=== PATIENT | female | born 1970 | race Caucasian/White ===

== ENCOUNTER 2023-04-22 08:56 | Outpatient (OUT) | payer BC, SELFPAY ==
--- NOTE | 2023-04-22 09:12 | XR_ITS ---
[facility] [place] [id number] Patient Name: DEANGELO DAVIDSON MRN: [id number] date: 1970 Sex: F Assigned Patient Location: [facility] Current Patient Location: [facility] Accession/Order Number: [id number] Exam Date: 04/22/2023 09:05 Report Date: 04/22/2023 09:25 At the request of: DAVID ERWIN Procedure: XR hip RT min 2V XR hip RT min 2V, 04/22/2023 9:05 AM EDT, [place]001 INDICATION: Right Hip Pain M25.551 COMPARISON: None. TECHNIQUE: 2 views of the hip obtained. FINDINGS: The osseous structures appear intact. There is normal alignment. The articular surfaces and joint spaces are preserved. There are no obvoius blastic or lytic lesions. There is no evidence of significant soft tissue swelling. XR/XR hip RT min 2V IMPRESSION: No acute osseous injury with normal alignment. Electronically authenticated by: RADHA BETTENCOURT Date: 04/22/2023 09:25
== END 2023-04-22 08:57 | disposition home or self-care (01) ==
LOC: RAD 08:58
PROVIDERS: PCP Nurse Practitioner; Visit Provider Nurse Practitioner
DX: M25.551 Pain in right hip (principal)
CPT/HCPCS: 73502

== ENCOUNTER 2023-07-18 07:18 | Emergency (ER) | payer BC, SELFPAY ==
[2023-07-18] VITALS (10 sets, daily range): BP systolic 119–154; BP diastolic 83–89; PULSE 73–74; RESP 16; TEMP 36.4; O2SAT 98–100; BMI 31.2
--- NOTE | 2023-07-18 07:43 | ED_ITS ---
HPI - Abdominal Pain General Chief Complaint: Abdominal Pain Stated Complaint: ABDOMINAL PAIN Time Seen by Provider: 07/18/23 07:42 Source: patient and family Mode of arrival: walk-in Limitations: no limitations History of Present Illness HPI narrative: patient's here with severe right upper quadrant abdominal pain. She was fine yesterday and pain woke her up abruptly at 2 AM. The pain is right upper quadrant sometimes goes into her back. She currently is taking Keflex for diagnosis of urinary tract infection. She went to an urgent care. They did a culture and they said it was the correct antibiotic. She's not having a urinary symptomatology anymore at this time. She's not had rigors shakes or chills. She's had previous CT scans of the abdomen but she's not had ultrasonography done. Does not have any chest pain or heaviness or squeezing. Her bowel movements have been normal. She does not have much nausea. Related Data Allergies Allergy/AdvReac Type Severity Reaction Status Date / Time Sulfa (Sulfonamide Allergy Intermediate Verified 07/18/23 07:24 Antibiotics) sulfamethoxazole Allergy Intermediate Verified 07/18/23 07:24 [From Bactrim] tetracycline Allergy Intermediate Verified 07/18/23 07:24 trimethoprim [From Bactrim] Allergy Intermediate Verified 07/18/23 07:24 Exam Narrative Exam Narrative: awake alert oriented uncomfortable in appearance. However she is afebrile vital signs are stable. Overall HEENT there is no scleral icterus pallor or anemia. Moving to the abdomen she has definite Garcia sign with palpation right upper quadrant. There is no peritoneal findings rebound or rigidity. No organomegaly. No previous surgical incisions are noted. She has no rest prestress coughing or labored respiratory effort. Extremities show no evidence of peripheral edema or phlebitis. Constitutional Vital Signs, click to edit/add: Last Vital Signs Temp 97.6 F 07/18/23 07:21 Pulse 73 07/18/23 07:21 Resp 16 07/18/23 07:21 BP 154/88 H 07/18/23 07:21 Pulse Ox 100 07/18/23 07:21 O2 Del Method Room Air 07/18/23 07:21 Course Vital Signs Vital signs: Vital Signs Temperature 97.6 F 07/18/23 07:21 Pulse Rate 73 07/18/23 07:21 Respiratory Rate 16 07/18/23 07:21 Blood Pressure 154/88 H 07/18/23 07:21 Pulse Oximetry 100 07/18/23 07:21 Oxygen Delivery Method Room Air 07/18/23 07:21 Temperature 97.6 F 07/18/23 07:21 Pulse Rate 73 07/18/23 07:21 Respiratory Rate 16 07/18/23 07:21 Blood Pressure 154/88 H 07/18/23 07:21 Pulse Oximetry 100 07/18/23 07:21 Oxygen Delivery Method Room Air 07/18/23 07:21 MDM - Abdominal Pain MDM Narrative Medical decision making narrative: after clinical exam was completed I ordered a gallbladder ultrasound. The collar tacker was aware of her previous diagnostic studies. The information was relayed to the radiologist interpretation shows progression of her previous hemangiomas but now theere is a stone in the dependent portion of the gallbladder. There is no wall thickening or obstruction. I spoke with Dr. March, the on-call surgeon. We discussed the white blood cell count and lack of fever the ultrasound findings. He is offered the patient admission or he can see the patient as an outpatient. This was discussed with the patient and she's opted to go home. Dr. March suggested that she be given one dose of parenteral antibiotic here but does not suggest putting her on oral antibiotics. Incidentally she has just finished up a course of Keflex from a previously diagnosed urinary tract infection. She is not diabetic and she is not febrile. We discussed all her questions extensively. She will be following up with Dr. saba as Joaquim is only on surgical call. She was advised to return should she have vomiting fever or can't tolerate by mouth fluids. She is to advised to avoid all fatty foods and the unclear fluids for the next forty-eight hours. This was agreeable to both her and her Discharge Plan Discharge Chief Complaint: Abdominal Pain Clinical Impression: Biliary colic Patient Disposition: Home, Self-Care Time of Disposition Decision: 10:59 Additional Instructions: Toradol/Zofran/[place] Stand Alone Forms: Portal Instructions Referrals: Marry Schroeder NP [Primary Care Provider] - 1 week
--- NOTE | 2023-07-18 07:49 | US_ITS ---
The [address] [address] Patient Name: DEANGELO DAVIDSON MRN: [id number] date: 1970 Sex: F Assigned Patient Location: ER Current Patient Location: ER Accession/Order Number: [id number] Exam Date: 07/18/2023 09:00 Report Date: 07/18/2023 10:03 At the request of: ANNA OCHOA Procedure: US right upper quadrant PROCEDURE: US right upper quadrant, 07/18/2023 9:00 AM EST CLINICAL INDICATIONS: Right upper quadrant abdominal pain, nausea, vomiting symptoms for 2 hours. History of hepatic hemangiomata COMPARISON: CT abdomen and pelvis 05/21/2022 TECHNIQUE: Right upper quadrant abdominal sonogram FINDINGS: Visualized pancreas is normal in morphology. Head and tail segments are obscured. Hypoechoic region adjacent to the tail the pancreas measures up to 3.1 x 3.6 x 3.0 cm. Incompletely characterized on this examination. This may represent gas filled bowel although indeterminate. Right lobe liver is mildly prominent up to 17 cm. Visualized portal vein patent with antegrade flow, normal velocity. Contour is smooth. Echogenic hepatic masses likely corresponding with previously suspected hepatic hemangiomata. These measure up to; 6.5 x 4.3 x 4.5 cm adjacent to the gallbladder fossa 2.1 x 2.2 x 1.9 cm posterior segment right lobe Right kidney is normal in morphology. It measures 9.5 x 3.7 x 4.7 cm. No hydronephrosis or shadowing calculus is identified. Focal renal abnormality is not demonstrated. Common bile duct 0.4 cm. Gallbladder distention noted up to 10.1 cm longitudinally. Dependent calculi are seen. Wall thickening, localized pain is not evident. No ascites. US/US right upper quadrant IMPRESSION: 1. Gallbladder distention, cholelithiasis, no wall thickening or bile duct dilatation. Acute cholecystitis considered in the appropriate clinical setting. If of clinical merit nuclear medicine hepatobiliary imaging may be helpful to assess patency of cystic and common bile duct. 2. Echogenic hepatic masses measuring up to 6.5 and 2.2 cm previously felt to represent hepatic hemangiomata. 3. Indeterminate hypoechoic region adjacent to the tail the pancreas up to 3.6 cm. Gas filled a peristaltic bowel is favored. Incompletely assessed on this examination. CT would be more accurate in further characterization. Electronically authenticated by: ASHOK MCGOWAN Date: 07/18/2023 10:03
[2023-07-18] MEDS: MORPHINE SULFATE 2 MG/ML SYRINGE IV (08:01)
[2023-07-18] MEDS: KETOROLAC TROMETHAMINE 30 MG/ML VIAL IVP (08:01)
[2023-07-18] MEDS: 0.9 % SODIUM CHLORIDE 1,000 ML 999 ML IV (08:01)
[2023-07-18 08:03] LABS: Basophils Absolute Auto 0.1 10^3/uL (0.0-0.1); Basophils Percent Auto 0.5 % (0.2-2.0); Eosinophils Absolute Auto 0.2 10^3/uL (0.0-0.7); Eosinophils Percent Auto 1.3 % (0.9-7.0); Hematocrit 39.4 % (36.0-48.0); Hemoglobin 12.8 g/dL (12.0-16.0); Immature Granulocytes Abs Auto 0.05 10^3/uL (0.00-0.03); Immature Granulocytes Pct Auto 0.4 % (0.0-0.5); Lymphocytes Absolute Auto 2.2 10^3/uL (1.2-3.8); Lymphocytes Percent Auto 17.1 % (20.5-60.0); Mean Corpuscular HGB Conc 32.5 g/dL (29.9-35.2); Mean Corpuscular Hemoglobin 31.1 pg (26.7-34.0); Mean Corpuscular Volume 95.9 fL (81.0-99.0); Mean Platelet Volume 10.1 fL (9.5-13.5); Monocytes Absolute Auto 0.8 10^3/uL (0.3-0.8); Monocytes Percent Auto 6.3 % (1.7-12.0); Neutrophils Absolute Auto 9.7 10^3/uL (1.4-6.5); Neutrophils Percent Auto 74.4 % (43.0-75.0); Platelet Count 339 10^3/uL (150-450); Red Blood Count 4.11 10^6/uL (4.20-5.40); Red Cell Distribution Width 12.1 % (11.0-15.0)
[2023-07-18 08:20] LABS: Alanine Aminotransferase 63 U/L (14-59); Albumin Level 3.8 g/dL (3.4-5.0); Alkaline Phosphatase 123 U/L (46-116); Anion Gap 15.9; Aspartate Amino Transferase 26 U/L (15-37); BUN Creatinine Ratio 16.5; Bilirubin Total 0.2 mg/dL (0.2-1.0); Calcium 9.3 mg/dL (8.5-10.1); Chloride 99 mmol/L (98-107); Estimated GFR (African America >60 (>=60); Estimated GFR (Non-African Ame >60 (>=60); Globulin 3.8 g/dL; Glucose 136 mg/dL (74-106); Potassium 3.9 mmol/L (3.5-5.1); Sodium 139 mmol/L (136-145); Total Protein 7.6 g/dL (6.4-8.2)
[2023-07-18] MEDS: ONDANSETRON PF 4 MG/2 ML VIAL IV (08:21)
[2023-07-18 09:41] LABS: Bilirubin Urine NEGATIVE (NEGATIVE); Blood Urine NEGATIVE (NEGATIVE); Clarity Urine CLEAR (CLEAR); Color Urine LT. YELLOW (YELLOW); Glucose Urine UA NEGATIVE (NEGATIVE); Ketones Urine NEGATIVE (NEGATIVE); Leukocyte Esterase Urine NEGATIVE (NEGATIVE); Nitrite Urine NEGATIVE (NEGATIVE); Protein Urine NEGATIVE (NEG/TRACE); Urobilinogen Urine 0.2 EU/dL (0.2-1.0); pH Urine 7.5 (5.0-9.0)
[2023-07-18 09:43] LABS: Urine Microscopic Indicated NO
[2023-07-18] MEDS: CEFTRIAXONE 1,000 MG in 0.9 % SODIUM CHLORIDE 50 ML 100 MG IV (10:51)
== END 2023-07-18 11:27 | disposition home or self-care (01) ==
PROVIDERS: Emergency Provider Emergency Medicine Emergency Medical Services; PCP Nurse Practitioner
DX: K80.50 Calculus of bile duct without cholangitis or cholecystitis without obstruction (principal); Z87.440 Personal history of urinary (tract) infections
CPT/HCPCS: 36415; 76705; 80053; 81003; 83690; 85025; 96365; 96375; 99285

== ENCOUNTER 2023-10-16 10:22 | Outpatient (OUT) | payer BC, SELFPAY ==
--- NOTE | 2023-10-16 10:24 | MM_ITS ---
Patient Name: DEANGELO DAVIDSON MR#: [id number] : 1970 Exam Date: 10/16/2023 Ordering Doctor: JOANN IRVIN REED WORKER-C RADIOLOGY REPORT PROCEDURE: MM TOMOSYNTHESIS SCREENING BI COMPARISON: MG MAMM SCREEN 3D MARY CAD, 08/05/2022. MG MAMM DX 3D RT CAD, 01/22/2022. MAMMO POST BIOPSY RIGHT, 06/20/2021. MG MAMM SCREEN 3D MARY CAD, 06/06/2021. INDICATIONS: Screening Calculator Name NCI Breast Cancer Risk Assessment Tool 5 Year Breast Cancer Risk Not Reported. Lifetime Breast Cancer Risk Not Reported. Personal Breast Cancer No Personal Ovarian Cancer No Treatments None Family Cancers None LOCATION: [facility] BREAST COMPOSITION: Heterogeneously dense,which may obscure small masses. FINDINGS: DIAGNOSTIC CATEGORY 2--BENIGN FINDING: RIGHT BREAST: No significant suspicious finding. Scattered benign-appearing nodules are present. No significant change has occurred. LEFT BREAST: No significant suspicious finding. No significant change has occurred. RECOMMENDATIONS: ROUTINE MAMMOGRAM AND CLINICAL EVALUATION IN 12 MONTHS. PLEASE NOTE: A NORMAL MAMMOGRAM DOES NOT EXCLUDE THE POSSIBILITY OF BREAST CANCER. A CLINICALLY SUSPICIOUS PALPABLE LUMP SHOULD BE BIOPSIED. Dictated by: Rufus Molina M.D. on 10/16/2023 at 14:17 Approved by: Rufus Molina M.D. on 10/16/2023 at 14:20
--- OUTSIDE RECORDS SUMMARY | 2023-10-16 10:27 | XMS_ITS | CCD ---
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 Name Role Phone AICHHOLZ, TOOL TROUBLE SHOOTER MARRY Primary Care Unavailable AICHHOLZ, TOOL TROUBLE SHOOTER MARRY Consulting Unavailable AICHHOLZ, TOOL TROUBLE SHOOTER MARRY Attending Unavailable AICHHOLZ, TOOL TROUBLE SHOOTER MARRY Admitting Unavailable DR LOREN MOLINA Consulting Unavailable AICHHOLZ, TOOL TROUBLE SHOOTER MARRY Primary Care Unavailable AICHHOLZ, TOOL TROUBLE SHOOTER MARRY Admitting Unavailable AICHHOLZ, TOOL TROUBLE SHOOTER MARRY Attending Unavailable AICHHOLZ, TOOL TROUBLE SHOOTER MARRY Consulting Unavailable AICHHOLZ, TOOL TROUBLE SHOOTER MARRY Attending Unavailable AICHHOLZ, TOOL TROUBLE SHOOTER MARRY Admitting Unavailable AICHHOLZ, TOOL TROUBLE SHOOTER MARRY Primary Care Unavailable AICHHOLZ, TOOL TROUBLE SHOOTER MARRY Consulting Unavailable AICHHOLZ, TOOL TROUBLE SHOOTER MARRY Attending Unavailable AICHHOLZ, TOOL TROUBLE SHOOTER MARRY Admitting Unavailable AICHHOLZ, TOOL TROUBLE SHOOTER MARRY Primary Care Unavailable AICHHOLZ, TOOL TROUBLE SHOOTER MARRY Consulting Unavailable DR LOREN MOLINA Consulting Unavailable AICHHOLZ, TOOL TROUBLE SHOOTER MARRY Consulting Unavailable AICHHOLZ, TOOL TROUBLE SHOOTER MARRY Admitting Unavailable AICHHOLZ, TOOL TROUBLE SHOOTER MARRY Primary Care Unavailable AICHHOLZ, TOOL TROUBLE SHOOTER MARRY Attending Unavailable AICHHOLZ, TOOL TROUBLE SHOOTER MARRY Primary Care Unavailable AICHHOLZ, TOOL TROUBLE SHOOTER MARRY Consulting Unavailable AICHHOLZ, TOOL TROUBLE SHOOTER MARRY Attending Unavailable AICHHOLZ, TOOL TROUBLE SHOOTER MARRY Admitting Unavailable DR LOREN MOLINA Consulting Unavailable AICHHOLZ, TOOL TROUBLE SHOOTER MARRY Primary Care Unavailable AICHHOLZ, TOOL TROUBLE SHOOTER MARRY Consulting Unavailable AICHHOLZ, TOOL TROUBLE SHOOTER MARRY Attending Unavailable AICHHOLZ, TOOL TROUBLE SHOOTER MARRY Admitting Unavailable DR LOREN MOLINA Consulting Unavailable Rylee Barrientos Unavailable Dayanara Thompson Unavailable ALLAN Aly Primary Care Provider LAUREN Thompson Attending Provider [phone] MARRY SCHROEDER Primary Care Physician Unavailable Primary Care Provider Unavailabl e MG, TOMS Attending Unavailable MG, TOMS Admitting Unavailable Roxann THACKER Attending Unavailable Marry Schroeder CNP Primary Care Provider [phone] MARRY SCHROEDER Primary Care Unavailable MG, TOMS Referring Unavailable MG, TOMS Referring Unavailable MG, TOMS Attending Unavailable BLANCA, MEREDITH Referring Unavailable BERTO BLANCOIE Attending Unavailable MARRY SCHROEDER Primary Care Unavailable MG, TOMS Referring Unavailable MARRY SCHROEDER Primary Care Unavailable MARRY SCHROEDER Primary Care Unavailable MG, TOMS Referring Unavailable Dayanara Thompson Attending Unavailable Dayanara Thompson Admitting Unavailable Nadege Aly Primary Care Unavailable Allergies Allergy Classification Reported Allergen(s) Allergy Type Date of Onset Reaction(s) Facility (2 sources) Tetracycline; Translations: [tetracycline] Drug Allergy 06-17-20 [facility] Repository (3 sources) Sulfamethoxazole / Trimethoprim Drug Allergy sick to stomach Merged With [facility] [employer] Other (3 sources) Sulfonamides (Antibiotic) Propensity to adverse reactions hives Merged With [facility] [employer] Other (7 sources) Tetracyclines; Translations: [TETRACYCLINES] Propensity to adverse reactions 12-11-19 18 [facility] (2 sources) Sulfonamides (Antibiotic); Translations: [sulfa drugs] Propensity to adverse reactions to drug Eruption of skin (disorder) [facility] (1 source) Tetracycline; Translations: [tetracycline] Drug Allergy Dyspnea (finding) [facility] (7 sources) Sulfonamides (Antibiotic); Translations: [SULFA (SULFONAMIDE ANTIBIOTICS)] Propensity to adverse reactions to drug (disorder) 07-11-20 23 Rash [facility] Repository (3 sources) Tetracycline (class of antibiotic) Drug Allergy 12-11-19 18 Itching, Rash, Shortness of Breath [facility] (2 sources) Sulfamethoxazole Drug Allergy 07-11-20 sick to stomach [facility] Repository (1 source) Tetracyclines Drug allergy (disorder) 07-11-20 [facility] Rep[facility] (2 sources) Trimethoprim Drug Allergy 07-11-20 sick to stomach [facility] Repository Medications Current Medications Medication Drug Class(es) Dates Sig (Normalized) Sig (Original) ascorbic acid 500 mg oral capsule (1 source) Vitamin C Start: 10-13-2023 Ascorbic Acid (Vitamin C) Active MG PO October 13, 2023 12:00am 24 hr buPROPion hydrochloride 150 mg extended release oral tablet (9 sources) Aminoketone Start: 10-13-2023 End: 10-13-2023 take 150 mg by mouth once daily Bupropion Hcl Active 150 MG PO Daily October 13, 2023 1:58pm Start: 07-23-2023 take 1 tablet by alma th once daily Wellbutrin SR 150 mg Tab-ER 150 mg = 1 tab(s), Oral, Daily, Refills(s) 0 Start Date: 07/23/23 Status: Ordered buPROPion SR (WE LLBUTRIN SR) 150 mg 12 hr tablet Wellbutrin 0 Active take 1 tablet by alma th every twenty-four hours Wellbutrin SR 150 MG 1 tablet in the morning Orally Once a day Active Comment on above: Wellbutrin cephalexin 500 mg oral capsule (2 sources) Cephalosporin Antibacterial Start: take 1 capsule by mouth every eight hours Cephalexin 500 MG 1 capsule Orally every 8 hrs for 7 Jun, Active cetirizine hydrochloride 10 mg oral tablet (3 sources) Histamine-1 Receptor Antagonist Start: take 1 tablet by mouth every twelve hours Cetirizine HCl 10 MG 1 tablet Orally bid for 5 days December, Active citalopram 40 mg oral tablet (10 sources) Serotonin Reuptake Inhibitor Start: End: take 1 tablet by mouth once daily Citalopram (Celexa) 40 mg tablet Active 40 MG PO Daily October 13, 2023 1:59pm Comment on above: Take 40 mg by mouth. ELDERBERRY FRUIT (1 source) Start: Elderberry Fruit Active MG PO October 13, 2023 12:00am Lactobacillus Combination No.9 (Adult 50 Plus Probiotic) 4 billion cell capsule (1 source) Start: 024 take 4 capsules by mouth once daily Lactobacillus Combination No.9 (Adult 50 Plus Probiotic) 4 billion cell capsule Active 4000 MMU CELLS PO Daily October 13, 2023 12:00am administer with a meal omeprazole 40 mg delayed release oral capsule (9 sources) Proton Pump Inhibitor Start: 019 take 40 mg by mouth once daily Omeprazole Active 40 MG PO Daily 56 56 February 08, 2019 11:00pm Comment on above: Take 40 mg by mouth. phenazopyridine hydrochloride 200 mg oral tablet (2 sources) Start: 023 take 1 tablet by mouth every eight hours Pyridium 200 MG 1 tablet after meals Orally Three times a day for 2 day(s) Jun, Active phentermine hydrochloride 37.5 mg oral capsule (1 source) Sympathomimetic Amine Anorectic Start: 024 take 37.5 mg by mouth once daily 30 minutes after breakfast Phentermine Active 37.5 MG PO Daily October 13, 2023 12:00am must administer 30 minutes before or 1-2 hours after breakfast traZODone hydrochloride 50 mg oral tablet (3 sources) Serotonin Reuptake Inhibitor take 1 tablet by mouth every twenty-four hours traZODone HCl 50 MG 1 tablet at bedtime as needed Orally Once a day Active Completed/Discontinued Medications Medication Drug Class(es) Dates Sig (Normalized) Sig (Original) albuterol 0.83 mg/ml inhalation solution (6 sources) beta2-Adrenergic Agonist Start: 09-10-2023 take 3 mL by inhalation four times daily as needed for wheezing albuterol (PROVENTIL) 2.5 mg /3 mL (0.083 %) nebulizer solution Indications: Pre-op examination Use 3 mL via nebulizer four times a day as needed for wheezing/shortness of breath. Inhale by nebulizer over 5-15 minutes 0 09/10/2023 Active take 2 puff(s) by in halation every six hours as needed Albuterol Sulfate HFA 108 (90 Base) MCG/ACT 2 puffs as needed Inhalation every 6 hrs as needed for 30 days Not-Taking take 2 puff(s) by in halation every six hours as needed Albuterol Sulfate HFA 108 (90 Base) MCG/ACT 2 puffs as needed Inhalation every 6 hrs as needed for 30 days Active Comment on above: Use 3 mL via nebuliz er four times a day as needed for wheezing/shortness of breath. Inhale by nebulizer over 5-15 minutes amoxicillin 875 mg / clavulanate 125 mg oral tablet (3 sources) Penicillin-class Antibacterial Start: 023 take 1 tablet by mouth every twelve hours Amoxicillin-Pot Clavulanate 875-125 MG 1 tablet Orally every 12 hrs for 7 days May, Not-Taking azithromycin 500 mg oral tablet (2 sources) Macrolide Antimicrobial Start: End: 019 take 500 mg by mouth once daily Azithromycin Discontinued 500 MG PO Daily February 06, 2019 11:00pm February 09, 2019 11:26am Cranberry (2 sources) Non-Standardized Food Allergenic Extract, Non-Standardized Plant Allergenic Extract Start: 018 End: 024 take 400 mg by mouth once daily Cranberry Discontinued 400 MG PO Daily December 09, 2017 11:00pm October 13, 2023 1:10pm Start: 12-10-2017 take 400 mg by mouth once sveta y Cranberry Active 400 MG PO Daily December 09, 2017 11:00pm diphenhydrAMINE hydrochloride 25 mg oral capsule (4 sources) Histamine-1 Receptor Antagonist Start: 08-04-2023 diphenhydrAMINE (BENADRYL) 25 mg capsule Take both capsules [address] Scan 2 capsule 0 08/04/2023 Active Comment on above: Take both capsules [address] Scan iv contrast (will be provided with radiology test) (4 sources) Start: 08-03-2023 iv contrast (will be provided with radiology test) Indications: Calculus of gallbladder without cholecystitis without obstruction , Liver mass CT LIVER W IVCON Inject, intravenously, once for 1 dose. No IV access, insert saline lock prior to the beginning of sedation, infusion, injection of imaging exam. Discontinue saline lock post exam. If Pt. has a central line or IVAD, may access for administration according to line specific nursing protocol. Once exam is complete flush line and de-access according to line specific nursing protocol in the CT contrast administration guidelines link. 1 Each 0 08/03/2023 Active Comment on above: CT LIVER W IVCON Inj ect, intravenously, once for 1 dose. No IV access, insert saline lock prior to the beginning of sedation, infusion, injection of imaging exam. Discontinue saline lock post exam. If Pt. has a central line or IVAD, may access for administration according to line specific nursing protocol. Once exam is complete flush line and de-access according to line specific nursing protocol in the CT contrast administration guidelines link. Lactobacillus acidophilus (3 sources) Lactobacillus acidophilus (PROBIOTIC ORAL) Take by mouth once daily. 0 Active Comment on above: Take by mouth once d aily. Multivitamin preparation (2 sources) Start: 12-10-2017 End: 10-13-2023 take 1 tablet by mouth once daily Multivitamin Discontinued 1 TAB PO Daily December 09, 2017 11:00pm October 13, 2023 1:10pm Start: 12-10-2017 take 1 tablet by alma th once daily Multivitamin Active 1 TAB PO Daily December 09, 2017 11:00pm predniSONE 50 mg oral tablet (6 sources) Start: 08-04-2023 predniSONE (DE LTASONE) 50 mg Take 1 tablet 13 hours, 7 hours, and 1 hour before Cat Scan 3 tablet 0 08/04/2023 Active Start: 02-07-2019 End: 02-09-2019 take 1 mg by mouth once daily Prednisone Discontinued 1 MG PO Daily February 06, 2019 11:00pm February 09, 2019 11:26am Comment on above: Take 1 tablet 13 lesia rs, 7 hours, and 1 hour before Cat Scan Problems Problem Classification Problem Date Documented Da te Episodic/Chronic Abdominal pain (6 sources) Generalized abdominal pain; Translations: [Right upper quadrant pain] Onset: 2 Episodic Asthma (10 sources) Allergic asthma; Translations: [Unspecified asthma, uncomplicated] Onset: 0 02-07-2019 Chronic Biliary tract disease (8 sources) Cholelithiasis without obstruction; Translations: [Calculus of gallbladder without cholecystitis without obstruction] Onset: 3 Episodic Deficiency and other anemia (2 sources) Anemia due to blood loss; Translations: [Iron deficiency anemia secondary to blood loss (chronic)] 02-15-2019 Chronic Deficiency and other anemia (1 source) Iron deficiency anemia secondary to blood loss (chronic); Translations: [Iron deficiency anemia secondary to blood loss (chronic)] 10-13-2023 Chronic Diseases of mouth; excluding dental (3 sources) Xerostomia; Translations: [Dry mouth, unspecified] Episodic E Codes: Natural/environment (3 sources) Bitten by cat, initial encounter; Translations: [Cat bite] Episodic Esophageal disorders (8 sources) Gastroesophageal reflux disease; Translations: [Gastro-esophageal reflux disease without esophagitis] Onset: 4 09-09-2023 Chronic Gastroduodenal ulcer (except hemorrhage) (6 sources) Antral ulcer; Translations: [Gastric ulcer, unspecified as acute or chronic, without hemorrhage or perforation] 02-15-2019 Chronic Gastroduodenal ulcer (except hemorrhage) (1 source) H/O: gastric ulcer 07-23-2023 Episodic Gastrointestinal hemorrhage (7 sources) Hematemesis; Translations: [Hematemesis] 02-07-2019 Episodic Genitourinary symptoms and ill-defined conditions (6 sources) Other microscopic hematuria; Translations: [Dysuria] Onset: 2 Episodic Malaise and fatigue (11 sources) Other fatigue; Translations: [Fatigue] Onset: 3 Episodic Mood disorders (9 sources) Major depression, single episode; Translations: [Major depressive disorder, single episode, unspecified] Onset: 4 02-07-2019 Chronic Nonspecific chest pain (2 sources) Chest wall pain; Translations: [Other chest pain] 12-10-2017 Episodic Open wounds of extremities (3 sources) Open wound of knee and/or leg and/or ankle; Translations: [Puncture wound without foreign body, right lower leg, initial encounter] Episodic Other aftercare (1 source) Surgical follow-up; Translations: [Encounter for follow-up examination after completed treatment for conditions other than malignant neoplasm] 09-30-2023 Episodic Other aftercare (1 source) Encounter for follow-up examination after completed treatment for conditions other than malignant neoplasm; Translations: [S/P gastrointestinal surgery, follow-up exam] Onset: 4 Episodic Other and unspecified benign neoplasm (1 source) Hemangioma of intra-abdominal structure; Translations: [Hemangioma of intra-abdominal structures] Onset: 3 Episodic Other and unspecified benign neoplasm (1 source) Hemangioma of liver 07-21-2023 Episodic Other and unspecified benign neoplasm (1 source) Hemangioma; Translations: [Hemangioma unspecified site] 10-13-2023 Episodic Other and unspecified benign neoplasm (1 source) Hemangioma unspecified site; Translations: [Hemangioma of unspecified site] 10-13-2023 Episodic Other connective tissue disease (2 sources) Fibromyalgia; Translations: [Fibromyalgia] 07-23-2023 Episodic Other connective tissue disease (1 source) Fibromyalgia; Translations: [Myalgia and myositis, unspecified] 10-13-2023 Episodic Other liver diseases (4 sources) Liver disease, unspecified; Translations: [LIVER DISEASE UNSPECIFIED] Onset: 2 Chronic Other liver diseases (1 source) Liver mass; Translations: [Hepatomegaly, not elsewhere classified] 08-03-2023 Episodic Other liver diseases (1 source) Hepatomegaly, not elsewhere classified; Translations: [Liver mass] Onset: 3 Episodic Other non-traumatic joint disorders (1 source) Pain in unspecified joint; Translations: [PAIN IN UNSPECIFIED JOINT] Onset: 3 Episodic Other non-traumatic joint disorders (1 source) Joint finding; Translations: [Joint disorder, unspecified] 10-13-2023 Episodic Other non-traumatic joint disorders (1 source) Joint disorder, unspecified; Translations: [Unspecified disorder of joint, multiple sites] 10-13-2023 Episodic Other nutritional; endocrine; and metabolic disorders (2 sources) Obese class I; Translations: [Body mass index (BMI) 31.0-31.9, adult] Onset: 3 Chronic Other nutritional; endocrine; and metabolic disorders (4 sources) Body mass index 30+ - obesity; Translations: [Body mass index (BMI) 31.0-31.9, adult] Onset: 4 07-23-2023 Chronic Other nutritional; endocrine; and metabolic disorders (1 source) Obesity 07-23-2023 Chronic Other screening for suspected conditions (not mental disorders or infectious disease) (10 sources) Encounter for screening mammogram for malignant neoplasm of breast; Translations: [Other abnormal and inconclusive findings on diagnostic imaging of breast] Onset: 2 Episodic Other skin disorders (3 sources) Easy bruising; Translations: [Other skin changes] Episodic Residual codes; unclassified (3 sources) Sleep apnea; Translations: [Sleep apnea, unspecified] Chronic Residual codes; unclassified (1 source) Obstructive sleep apnea (adult) (pediatric); Translations: [MARKY (obstructive sleep apnea)] Onset: 4 Chronic Residual codes; unclassified (3 sources) Other specified postprocedural states; Translations: [Other postprocedural status] Onset: 4 09-10-2023 Episodic Residual codes; unclassified (1 source) Acquired absence of other specified parts of digestive tract; Translations: [S/P laparoscopic cholecystectomy] Onset: 4 Episodic Residual codes; unclassified (1 source) Family history of Yvonne thyroiditis; Translations: [Family history of other endocrine, nutritional and metabolic diseases] 10-13-2023 Episodic Residual codes; unclassified (1 source) Family history of diabetes mellitus; Translations: [Family history of diabetes mellitus] 10-13-2023 Episodic Residual codes; unclassified (1 source) FH: Rheumatoid arthritis; Translations: [Family history of arthritis] 10-13-2023 Episodic Residual codes; unclassified (1 source) Family history of other endocrine, nutritional and metabolic diseases; Translations: [Family history of other endocrine and metabolic diseases] 10-13-2023 Episodic Residual codes; unclassified (1 source) Family history of arthritis; Translations: [Family history of arthritis] 10-13-2023 Episodic Skin and subcutaneous tissue infections (1 source) Cellulitis of left lower limb Episodic Urinary tract infections (1 source) Acute cystitis with hematuria Episodic Results Test Name Value Interpretation Reference Range Facility [facility] 10-05-2023 [facility] Telephone ([id number]) STACIE DAVIDSON ([id number]) 1970 F Date Time Provider Department 10/05/23 UTE MG [id number] During your visit today, we recorded the following information about you: Kayce Norton 10/05/2023 11:37 AM Signed Patient called needing a return to work fitness form. Any questions she can be reached at [phone] The form should be sent to [employer], . Please also my chart her a copy. Thank You! Marilynn Rene MA 10/06/2023 8:52 AM Addendum There was not return to work fitness form in the packet. I faxed over the forms to [employer] on 09/30/23. I left a vm on patients phone to let her know and that I can't upload them to her [employer] because she does not have one set up. Marilynn Rene MA Allergies As of Date: 10/05/2023 Noted Allergy Reaction SULFA (SULFONAMIDE ANTIBIOTICS) 07/18/2023 2 - Rash TETRACYCLINES 12/10/2017 9 - Itching 2 - Rash 12 - Shortness of Breath Date Reviewed: 09/30/2023 Reviewed by: 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 APRN.TOOL TROUBLE SHOOTER - Fully Assessed Reason for Visit: return to work fitness form [Other] Prescriptions as of 10/06/2023 - Lactobacillus acidophilus (PROBIOTIC ORAL) Take by mouth once daily. - albuterol (PROVENTIL) 2.5 mg /3 mL (0.083 %) nebulizer solution Use 3 mL via nebulizer four times a day as needed for wheezing/shortness of breath. Inhale by nebulizer over 5-15 minutes - buPROPion SR (WELLBUTRIN SR) 150 mg 12 hr tablet Wellbutrin - citalopram (CELEXA) 40 mg tablet Take 40 mg by mouth. - omeprazole (PRILOSEC) 40 mg capsule Take 40 mg by mouth. - predniSONE (DELTASONE) 50 mg Take 1 tablet 13 hours, 7 hours, and 1 hour before Cat Scan - diphenhydrAMINE (BENADRYL) 25 mg capsule Take both capsules [address] Scan - iv contrast (will be provided with radiology test) CT LIVER W IVCON Inject, intravenously, once for 1 dose. No IV access, insert saline lock prior to the beginning of sedation, infusion, injection of imaging exam. Discontinue saline lock post exam. If Pt. has a central line or IVAD, may access for administration according to line specific nursing protocol. Once exam is complete flush line and de-access according to line specific nursing protocol in the CT contrast administration guidelines link. Problem List As Of Date 10/05/2023 Noted Resolved Asthma [J45.909] 09/09/2023 Cholelithiasis [K80.20] 09/09/2023 Depression [F32.A] 09/09/2023 Gastroesophageal reflux disease [K21.9] 09/09/2023 BMI 31.0-31.9,adult [Z68.31] 09/09/2023 MARKY (obstructive sleep apnea) [G47.33] 09/09/2023 09/10/2023 S/P lumpectomy, left breast [Z98.890] 09/10/2023 Encounter Status:Closed by MARILYNN RENE on 10/06/23 [facility] CNCOon 09-30-2023 CNCO Letter Text Normal [facility] CNOVon 09-30-2023 CNOV Office Visit ([id number] ) STACIE DAVIDSON ([id number]) 1970 F Date Time Provider Department 09/30/23 1:00 PM MEREDITH BLANCO [id number] During your visit today, we recorded the following information about you: Temperature Pulse Blood pressure Weight 98.6 degrees 78/minute 125/80 73.9 kg Height 1.549 m Marilynn Rene MA 09/30/2023 12:59 PM Signed What is the reason for your visit today? Post op follow up Lap cholecystectomy 09/16/23 Who is your referring physician? Dr Thacker Are you having poor oral intake? NO Have you had unintentional weight loss of 15 lbs/7 Kg in the last 3-6 months? NO Bowels: regular Wound: clean AND dry Temperature: No Drains: No 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 APRN.ALVIN 09/30/2023 1:48 PM Signed Assessment Postoperative Visit Date of Surgery: 09/16/2023 Surgery: Laparoscopic cholecystectomy, intraoperative cholangiogram. Post Op Diagnosis: 1. Right upper quadrant biliary colic and cholelithiasis. 2. 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 Gallbladder, cholecystectomy: - Xanthogranulomatous cholecystitis. - Cholelithiasis. Subjective: - tired, feeling well otherwise + mild incisional tenderness - no GI complaints - No food sensitivities Physical examination: BP 125/80 Pulse 78 Temp (Src) 98.6 (Temporal) Ht 5' .984 (1.55m) Wt 163 lb (73.9kg) SpO2 100% BMI 30.81 kg/(m2). AANDO, pleasant, no distress Abdomen: soft, no tenderness or distention Incisions: clean and dry, glue intact. No signs of infection Impression and plan: Stacie Davidson is a 53 year old yo pleasant woman, s/p Laparoscopic cholecystectomy, intraoperative cholangiogram. - doing well from the surgical perspective - recommended continued low fat diet Patient can go back to a regular routine at this time. I have asked the patient to continue weight lifting restrictions up to 10 pounds for a total of 4 weeks. RTW 10/19/23, with no restrictions. Paperwork completed Follow up: LISA Blanco APRN.ALVIN Referring Provider: UTE MG [[id number]] Allergies As of Date: 09/30/2023 Noted Allergy Reaction SULFA (SULFONAMIDE ANTIBIOTICS) 07/18/2023 2 - Rash TETRACYCLINES 12/10/2017 9 - Itching 2 - Rash 12 - Shortness of Breath Date Reviewed: 09/30/2023 Reviewed by: 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 APRN.TOOL TROUBLE SHOOTER - Fully Assessed Reason for Visit: Post Op Follow Up [3947] Cmt: Lap cholecystectomy 09/16/23 Primary Visit Diagnosis:S/P gastrointestinal surgery, follow-up exam [Z09] Other Visit Diagnosis:S/P laparoscopic cholecystectomy [Z90.49] Prescriptions as of 09/30/2023 - Lactobacillus acidophilus (PROBIOTIC ORAL) Take by mouth once daily. - albuterol (PROVENTIL) 2.5 mg /3 mL (0.083 %) nebulizer solution Use 3 mL via nebulizer four times a day as needed for wheezing/shortness of breath. Inhale by nebulizer over 5-15 minutes - buPROPion SR (WELLBUTRIN SR) 150 mg 12 hr tablet Wellbutrin - citalopram (CELEXA) 40 mg tablet Take 40 mg by mouth. - omeprazole (PRILOSEC) 40 mg capsule Take 40 mg by mouth. - predniSONE (DELTASONE) 50 mg Take 1 tablet 13 hours, 7 hours, and 1 hour before Cat Scan - diphenhydrAMINE (BENADRYL) 25 mg capsule Take both capsules [address] Scan - iv contrast (will be provided with radiology test) CT LIVER W IVCON Inject, intravenously, once for 1 dose. No IV access, insert saline lock prior to the beginning of sedation, infusion, injection of imaging exam. Discontinue saline lock post exam. If Pt. has a central line or IVAD, may access for administration according to line specific nursing protocol. Once exam is complete flush line and de-access according to line specific nursing protocol in the CT contrast administration guidelines link. Problem List As Of Date 09/30/2023 Noted Resolved Asthma [J45.909] 09/09/2023 Cholelithiasis [K80.20] 09/09/2023 Depression [F32.A] 09/09/2023 Gastroesophageal reflux disease [K21.9] 09/09/2023 BMI 31.0-31.9,adult [Z68.31] 09/09/2023 MARKY (obstructive sleep apnea) [G47.33] 09/09/2023 09/10/2023 S/P lumpectomy, left breast [Z98.890] 09/10/2023 Visit Notes: >> Marilynn Rene MA Wed Sep 30, 2023 12:53 PM Status: Signed What is the reason for your visit today? Post op follow up Lap cholecystectomy 09/16/23 Who is your referring physician? Dr Thacker Are you having poor oral intake? NO Have you had unintentional weight loss of 15 lbs/7 Kg in the last 3-6 months? NO Bowels: regular Wound: clean AND dry Temperature: No Drains: No Disposition: Return if symptoms worsen or fail to improve. Follow-up and Disposition History for Encounter Date Provider Department Center 09/30/[id number] BLANCO [id number] [facility] Encounter Status:Closed by MEREDITH BLANCO on 09/30/23 Normal [facility] Consultation Noteon 09-29-19 Consultation Note [id number]#1.0 0TIFF [facility] Consultation Note [id number]#1.0 0TIFF [facility] CNPNon 09-23-2023 CNPN Telephone ([id number]) STACIE DAVIDSON ([id number]) 1970 F Date Time Provider Department 09/23/23 UTE MG [id number] During your visit today, we recorded the following information about you: Marilynn Rene MA 09/23/2023 12:26 PM Signed Received FMLA/STD paperwork on 09/23/23 Pending physician signature and completion. Surgeon: Dr. Mg Date of Surgery (if known): 09/16/23 Marilynn Rene MA 09/30/2023 3:59 PM Signed Employer Forms for Patient/Caregiver Time Off of Work Completed, signed by provider, and returned to below contact. Completed copy scanned in [email or web address] Date of Surgery: 09/16/23 Estimated RTW date: 10/19/23 Employer: eReceipts. Faxed to the [facility] Date sent to employer: 09/30/23 Received fax confirmation: YES Allergies As of Date: 09/23/2023 Noted Allergy Reaction SULFA (SULFONAMIDE ANTIBIOTICS) 07/18/2023 2 - Rash TETRACYCLINES 12/10/2017 9 - Itching 2 - Rash 12 - Shortness of Breath Date Reviewed: 09/16/2023 Reviewed by: Valeria, Lori E, RN - Fully Assessed Reason for Visit: [facility] Paperwork [4524] Prescriptions as of 09/30/2023 - Lactobacillus acidophilus (PROBIOTIC ORAL) Take by mouth once daily. - albuterol (PROVENTIL) 2.5 mg /3 mL (0.083 %) nebulizer solution Use 3 mL via nebulizer four times a day as needed for wheezing/shortness of breath. Inhale by nebulizer over 5-15 minutes - buPROPion SR (WELLBUTRIN SR) 150 mg 12 hr tablet Wellbutrin - citalopram (CELEXA) 40 mg tablet Take 40 mg by mouth. - omeprazole (PRILOSEC) 40 mg capsule Take 40 mg by mouth. - predniSONE (DELTASONE) 50 mg Take 1 tablet 13 hours, 7 hours, and 1 hour before Cat Scan - diphenhydrAMINE (BENADRYL) 25 mg capsule Take both capsules [address] Scan - iv contrast (will be provided with radiology test) CT LIVER W IVCON Inject, intravenously, once for 1 dose. No IV access, insert saline lock prior to the beginning of sedation, infusion, injection of imaging exam. Discontinue saline lock post exam. If Pt. has a central line or IVAD, may access for administration according to line specific nursing protocol. Once exam is complete flush line and de-access according to line specific nursing protocol in the CT contrast administration guidelines link. Problem List As Of Date 09/23/2023 Noted Resolved Asthma [J45.909] 09/09/2023 Cholelithiasis [K80.20] 09/09/2023 Depression [F32.A] 09/09/2023 Gastroesophageal reflux disease [K21.9] 09/09/2023 BMI 31.0-31.9,adult [Z68.31] 09/09/2023 MARKY (obstructive sleep apnea) [G47.33] 09/09/2023 09/10/2023 S/P lumpectomy, left breast [Z98.890] 09/10/2023 Encounter Status:Closed by MARILYNN RENE on 09/30/23 Normal [facility] ANES POSTPROC EVALon 024 ANES POSTPROC EVAL HNO ID: [id number] Author: JORDY DASILVA DO Service: Anesthesiology Author Type: Anesthesiologist Type: Anesthesia Postprocedure Evaluation Filed: 09/16/2023 13:55 Note Text: POST ANESTHESIA EVALUATION NOTE : 1970 Procedure Summary Date: 09/16/23 Room / Location: OR05 / [facility] OR Anesthesia Start: 736 Anesthesia Stop: 932 Procedure: LAPAROSCOPIC CHOLECYSTECTOMY WITH GRAMS (Abdomen) Diagnosis: Calculus of gallbladder without cholecystitis without obstruction (Calculus of gallbladder without cholecystitis without obstruction [K80.20]) Surgeons: Ute Mg MD Responsible Provider: Jordy Dasilva DO Anesthesia Type: general ASA Status: 2 Anesthesia Type: general Airway Type: ETT Last Vitals Vitals Value Taken Time BP 123/66 09/16/23 1247 Temp 37.7 ?C (99.9 ?F) 09/16/23 1247 HR SpO2 105 09/16/23 1247 Resp 10 09/16/23 1245 SpO2 98 % 09/16/23 1247 Post Anesthesia Patient Status Patient Evaluation: PACU. PACU/ICU Patient Condition: stable. Anticipated Disposition: phase 2 then home. Neurological Status: aware and responsive. Pulmonary Status: breathing comfortably on room air Airway Control: returned to baseline unsupported. Cardiovascular Status: stable. Pain Management: clinically adequate - multimodal analgesia pain management approach Postoperative Hydration: acceptable. Intraoperative Events: no significant anesthesia events Post Operative Nausea/Vomiting Status: no significant post operative nausea or vomiting Recommendation: continue current plan of care. Anesthesia Observations No Documentation SIGNATURE: Jordy Dasilva DO PATIENT NAME: Stacie Davidson DATE: September 16, 2023 TIME: 1:55 PM CSN: [id number] [facility] ANES PRE-OPon 09-16-2023 ANES PRE-OP HNO ID: [id number] Author: JORDY DASILVA DO Service: Anesthesiology Author Type: Resident Type: Anesthesia Preprocedure Evaluation Filed: 09/16/2023 07:03 Note Text: Attestation signed by Jordy Dasilva DO at 09/16/2023 7:03 AM I saw and evaluated the patient. Discussed with the FINANCIAL SERVICES PROFESSIONAL/AA/resident and agree with findings and plan as documented in the note. Jordy Dasilva DO September 16, 2023 7:03 AM ANESTHESIOLOGY DAY OF SURGERY NOTE : 1970 Procedure Information Date/Time: 09/16/23 0730 Procedure: LAPAROSCOPIC CHOLECYSTECTOMY WITH GRAMS (Abdomen) Location: OR / OR Surgeons: Ute Mg MD Estimated body mass index is 31.66 kg/m? as calculated from the following: Height as of 09/10/23: 154.9 cm (5' 1 ). Weight as of 09/10/23: 76 kg (167 lb 8.8 oz). Most recent hematocrit and potassium results: Hematocrit 41.4 09/12/2023 Potassium 4.6 09/10/2023 Relevant Problems GI (+) Gastroesophageal reflux disease PULMONARY (+) Asthma I - PHYSICAL EVALUATION AIRWAY Patient intubated: No. Tracheostomy tube not present Mallampati: II. TM distance: >3 FB. Neck ROM: full ROM without neurological symptoms. Mouth opening: adequate. Short neck: no. Thick neck: no DENTAL Dental findings: teeth intact. II - ANESTHESIA PLAN ASA Score: 2 Anesthetic Plan: general Airway type: ETT The patient is not a current smoker. NPO Status: adequate Beta Zaid Monitoring Plan Monitoring plan: standard ASA. Post Procedure Analgesic Plan Postoperative analgesic plan: parenteral or oral opioids, multimodal analgesia and per surgical service. Informed Consent Anesthetic risks, benefits, alternatives, personnel and consent discussed: yes. Patient / Responsible Republican agrees to proceed: yes Patient / Surrogate agrees to blood products: Yes Vitals Value Taken Time BP 132/63 01/24/24 0626 Pulse 85 09/16/23625 Resp 16 09/16/23625 Temp 36.8 ?C (98.2 ?F) 09/16/23625 SpO2 99 % 09/16/23625 Facility-Administered Medications as of 09/16/2023 Medication Dose Route Frequency - lidocaine (PF) 10 mg/mL (1 %) 1-2 mg injection (XYLOCAINE) 0.1-0.2 mL INTRADERMAL PRN - lactated ringers iv infusion 5-30 mL/hr INTRAVENOUS CONTINUOUS - NaCl 0.9% iv flush bag 20 mL INTRAVENOUS PRN - heparin 5,000 Units injection 5,000 Units SUBCUTANEOUS ONCE - ceFAZolin iv piggyback 2 g in D5W (iso-osmotic) 100 mL (ANCEF) 2 g INTRAVENOUS Pre-Op Once - acetaminophen 1,000 mg tab(s) (TYLENOL) 1,000 mg ORAL Pre-Op Once - promethazine 12.5 mg tab(s) (PHENERGAN) 12.5 mg ORAL Pre-Op Once Outpatient Medications as of 09/16/2023 Medication Sig - citalopram (CELEXA) 40 mg tablet Take 40 mg by mouth. - omeprazole (PRILOSEC) 40 mg capsule Take 40 mg by mouth. - predniSONE (DELTASONE) 50 mg Take 1 tablet 13 hours, 7 hours, and 1 hour before Cat Scan - diphenhydrAMINE (BENADRYL) 25 mg capsule Take both capsules [address] Scan - iv contrast (will be provided with radiology test) CT LIVER W IVCON Inject, intravenously, once for 1 dose. No IV access, insert saline lock prior to the beginning of sedation, infusion, injection of imaging exam. Discontinue saline lock post exam. If Pt. has a central line or IVAD, may access for administration according to line specific nursing protocol. Once exam is complete flush line and de-access according to line specific nursing protocol in the CT contrast administration guidelines link. I have interviewed and examined the patient. I have reviewed the medical record and/or the pre-anesthesia evaluation, pertinent labs, and test results. This contains updated information obtained within 48 hours of Surgery/Procedure. SIGNATURE: Travon Vargas DO PATIENT NAME: Stacie Davidson DATE: September 16, 2023 TIME: 6:56 AM CSN: [id number] [facility] BRIEF OP NOTon 09-16-2023 BRIEF OP NOT HNO ID: [id number] Author: UTE MG MD Service: General Surgery Author Type: Physician Type: Brief Op Note Filed: 09/16/2023 10:00 Note Text: BRIEF OPERATIVE / PROCEDURE NOTE LOG ID: [id number] SURGERY/PROCEDURE DATE: 09/16/2023 INCISION/PROCEDURE START TIME: 8:07 AM INCISION CLOSE/PROCEDURE END TIME: 9:21 AM SURGEON(S)/PROCEDURALI ST(S) AND TRENCH PIPE LAYER(S): Surgeon(s) and Role: * Ute Mg MD - Primary Physician Industrial Specialist: Melissa Silverman PA-C SURGERY/PROCEDURE(S): Lap ronnell with IOC ANESTHESIA: General FINDINGS: Chronic cholecystitis ESTIMATED BLOOD LOSS: 50 mls SPECIMENS: Gallbladder COMPLICATIONS: None CLOSURE TECHNIQUE: Primary PRE-OP/PRE-PROCEDURE DIAGNOSIS: Biliary colic POST-OP/POST-PROCEDURE DIAGNOSIS: Same as Preop SIGNATURE: Ute Mg MD PATIENT NAME: Stacie Davidson DATE: September 16, 2023 TIME: 9:59 AM [facility] HISTORY PHYSICALon HISTORY PHYSICAL HNO ID: [id number] Author: UTE MG MD Service: General Surgery Author Type: Physician Type: H&P Filed: 09/16/2023 07:35 Note Text: UPDATED HISTORY AND PHYSICAL EXAMINATION SERVICE DATE: 09/16/2023 SERVICE TIME: 7:35 AM PHYSICAL EXAM MUST BE COMPLETED ON ADMISSION The History and Physical (completed in the past 30 days) has been reviewed and the patient has been examined. The contents accurately reflect the patient's condition with the following additions or revisions since the HANDP was completed. Examination indicates no changes. This HANDP can be found in the attached. SIGNATURE: Ute Mg MD PATIENT NAME: Stacie Davidson DATE: September 16, 2023 TIME: 7:35 AM [facility] NURSING PROGon 09-16-2023 NURSING PROG HNO ID: [id number] Author: SYLVIE CURTIS RN Service: Nursing Author Type: Registered Nurse Type: Nursing Progress Note Filed: 09/16/2023 06:17 Note Text: PATIENT EDUCATION TOPIC: PROCEDURE / SURGERY: Pre-op Teaching: Surgery PATIENT NAME: Stacie Davidson PATIENT LOCATION: OR [place]/[facility] OR POOL READINESS TO LEARN COGNITIVE ABILITY: Alert and oriented MOTIVATION TO LEARN: Eager FAMILY SUPPORT: Unable to assess - Family not present INSTRUCTION PROVIDED TO: Patient PATIENT LEARNS BEST BY: Individual Instruction Written Instruction - Hand-outs Verbal Instruction FACTORS AFFECTING LEARNING: None PHYSICAL LIMITATIONS AFFECTING LEARNING: None LEARNING RESPONSE DIAGNOSIS: ADULT: See HANDP PATIENT/FAMILY RESPONSE: Information received as demonstrated by interest and questions METHOD OF INSTRUCTION: Individual instruction Written instruction - handouts Verbal instruction FOLLOW-UP PLAN: Patient instructed to call with any further issues INSTRUCTIONAL AIDS USED: NA SUPPLEMENTAL MATERIAL PROVIDED TO PATIENT: None REFERRAL (RECOMMENDATION): None Electronically Signed By: Sylvie Cavanaugh [facility] OPERATIVE NOon 09-16-2023 OPERATIVE NO HNO ID: [id number] Author: UTE MG MD Service: General Surgery Author Type: Physician Type: Operative Report Filed: 09/20/2023 10:08 Note Text: [facility] - Operative Report STACIE DAVIDSON : 1970 AGE: 53. SEX: F PATIENT TYPE: A HOSP SV: [facility] LOCATION: [facility] ATTENDING PHYSICIAN: Ute Mg MD CSN NUMBER: [id number] DATE OF SURGERY/PROCEDURE: 09/16/2023 INCISION/PROCEDURE START TIME: 8:07 AM INCISION CLOSE/PROCEDURE END TIME: 9:21 AM PREOPERATIVE DIAGNOSIS: 1. Right upper quadrant biliary colic and cholelithiasis. 2. Hemangioma at the base of the gallbladder. POSTOPERATIVE DIAGNOSIS: 1. Right upper quadrant biliary colic and cholelithiasis. 2. Hemangioma at the base of the gallbladder. SURGEON: Ute Mg MD TRENCH PIPE LAYER: LUCITA Heath SURGERY/PROCEDURE: Laparoscopic cholecystectomy, intraoperative cholangiogram. ANESTHESIA: General endotracheal. COMPLICATIONS: None. ESTIMATED BLOOD LOSS: 100 mL. SPECIMENS: Gallbladder. WOUND CLASS: 2. INDICATIONS: Patient is a pleasant 53-year-old female who was referred to [place] for cholecystectomy. She did have a large hemangioma at the base of the gallbladder, but her symptoms were classic for biliary colic. Patient was scheduled for laparoscopic surgery. OPERATIVE FINDINGS: 1. An uncomplicated cholecystectomy was performed. 2. Intraoperative cholangiogram demonstrated excellent flow of contrast into a nondilated intra and extrahepatic biliary tree and flow into the duodenum. 3. We did have oozing and mild hemorrhage from the surface of the hemangioma, which was at the base of the gallbladder. This did not respond to 20 minutes of pressure with Hemoblast, subsequently an Aquamantys was used to control the small bleeder on the surface. DESCRIPTION OF PROCEDURE: The patient was identified and brought to the operating room, placed supine on the operating table. General anesthesia was induced. The abdomen was prepped and draped in a standard surgical fashion. A stab incision was made in the left upper quadrant. Veress needle was used to obtain pneumoperitoneum. Under direct vision and using Optiview technique, a 12 mm port was placed in the umbilicus and three 5 mm ports were placed in the epigastric, midclavicular, and anterior axillary line subcostally. The gallbladder appeared to be chronically inflamed. The hemangioma was visualized at the base of the gallbladder. The gallbladder was retracted, dissection was started at the infundibulum of the gallbladder. The cystic artery and cystic duct were identified and skeletonized. The cystic plate was opened a third of way of the gallbladder fossa to obtain a critical view. The cystic artery was doubly clipped on the patient's side, singly clipped on the specimen side. The cystic duct was singly clipped on the specimen side. A ductotomy was made. A cholangiogram was performed using the TigerTail catheter. This revealed no flow of contrast initially into the duodenum. There was filling of the pancreatic duct. The patient was given 1 mg of glucagon followed by another 1 mg of glucagon. The duct was flushed with approximately 100 mL saline. Repeat cholangiogram demonstrated excellent flow of contrast into a nondilated intra and extrahepatic biliary tree and flow into the duodenum. The cystic duct was triply clipped on the patient's side. The cystic artery and cystic duct were transected. The gallbladder was taken off the gallbladder fossa using electrocautery. It was placed in EndoCatch bag and retrieved through the 12 mm port site. We did note bleeding from the hemangioma. At this point initially, pressure was held with a Ray-Tj. We subsequently upsized one of our 5 mm epigastric ports to a 12 mm port. We aspirated the area with Hemoblast and again held pressure for about 15 minutes. This did not relieve the bleeding. We next used an Aquamantys and this quickly controlled the minor bleeding from the surface of the hemangioma. The area was inspected. The pressure was taken down to 5 mmHg and again inspected after 5-10 minutes without any subsequent bleeding. At this point, the excess fluid was suctioned out. All the ports were removed under direct vision. The fascia at the 12 mm port site was closed using Vicryl. The skin was closed using Monocryl and SureClose. The patient tolerated procedure without complications. I was present and scrubbed in throughout the operation. Melissa Silverman assisted me in the absence of qualified assembler surgical garment. She helped to retract the gallbladder and held the camera throughout the operation. Ute Mg MD TA:[id number] /[id number] Normal [facility] SURGICAL PATHOLOGYon CASE REPORT Normal [facility] Comment on above: Order Comment: Speci men Type: TISSUE SPECIMEN Ordering Facility: [facility] Address: [address] [place] [address] Result Comment: Surg [facility] Pathology Report Case: [id number] Authorizing Provider: Ute Mg MD Collected: 09/16/2023 09:11 AM Ordering Location: [facility] Received: 09/16/2023 11:51 AM Operating Room Pathologist: Evgeny Guido MD Specimen: GALLBLADDER Performed By: #### S #### [facility] CLIA [id number] [address] [place] [address] [place] CLINICAL HISTORY Normal [facility] Comment on above: Order Comment: Speci men Type: TISSUE SPECIMEN Ordering Facility: [facility] Address: [address] [place] [address] Result Comment: pre- op diagnosis: Calculus of gallbladder without cholecystitis without obstruction [K80.20] Performed By: #### S #### [facility] CLIA [id number] [address] [place] [address] [place] FINAL DIAGNOSIS Normal [facility] Comment on above: Order Comment: Speci men Type: TISSUE SPECIMEN Ordering Facility: [facility] Address: [address] [place] [address] Result Comment: A. G allbladder, cholecystectomy: - Xanthogranulomatous cholecystitis. - Cholelithiasis. Performed By: #### S #### [facility] CLIA [id number] [address] [place] [address] [place] FINAL PERFORMING LAB Normal [facility] Comment on above: Order Comment: Speci ryan Type: TISSUE SPECIMEN Ordering Facility: [facility] Address: [address] [place] [address] Result Comment: Diag nostic interpretation performed at [facility], [address] [place] [address] CLIA# [id number] Outfitter Cabin: Tor Eaton M.D. Performed By: #### S #### [facility] CLIA [id number] [address] [place] [address] GROSS DESCRIPTION A. GALLBLADDER Normal [facility] Comment on above: Order Comment: Speci ryan Type: TISSUE SPECIMEN Ordering Facility: [facility] Address: [address] [place] [address] Result Comment: Rece ived in formalin designated gallbladder is a gallbladder which measures 7.6 x 2 x 1.5 cm. The serosal surface is pink-purple and smooth. The lumen contains bile and multiple irregularly shaped yellow firm calculi measuring up to 0.4 cm in greatest dimension. Proximal to the fundus is a strictured area measuring 1.3 x 0.6 x 0.6 cm. The wall is thickened within this location measuring up to 0.8 cm in thickness. The remainder of the wall averages 0.1 cm in thickness. The mucosal surface is velvety bile-stained with yellow stippling most prominent on the summit of the mucosal ridges. The cystic duct shave margin fundus with thickened area and disability representative section of body are submitted cassette A1. BF September 16, 2023 12:45 PM Gross examination performed at [facility], [address] [place] [address] CLIA # [id number] Performed By: #### S #### [facility] CLIA [id number] [address] [facility] [address] [place] TYPE + SCREENon 09-16-2023 ABO A Normal [facility] Comment on above: Order Comment: Speci men Type: BLOOD SPECIMEN Ordering Facility: [facility] Address: [address] [place] [address] Performed By: #### T SCR #### [facility] CLIA [id number] [address] [place] [address] [place] HISTORICAL AB SCR STATUS Negative [facility] Comment on above: Order Comment: Speci men Type: BLOOD SPECIMEN Ordering Facility: [facility] Address: [address] [place] [address] Performed By: #### T SCR #### [facility] CLIA [id number] [address] [place] [address] [place] Rh Nom (Bld) Positive [facility] Comment on above: Order Comment: Speci men Type: BLOOD SPECIMEN Ordering Facility: [facility] Address: [address] [place] [address] Performed By: #### T SCR #### [facility] CLIA [id number] [address] [place] [address] [place] TYPE AND SCREEN EXPIRATION 09/19/2023 23:59 Normal [facility] Comment on above: Order Comment: Speci men Type: BLOOD SPECIMEN Ordering Facility: [facility] Address: [address] [place] [address] Performed By: #### T SCR #### [facility] CLIA [id number] [address] [place] [address] [place] CBC W Auto Differential pane l (Bld)on 09-12-2023 Basophils (Bld) [#/Vol] 0.06 10*3/uL Normal <0.11 [facility] Comment on above: Order Comment: Speci men Type: BLOOD SPECIMEN Ordering Facility: [facility] Address: [address] [place] [address] Performed By: #### 5 7021-8 #### [facility] CLIA [id number] [address] [place] [address] [place] Basophils/100 WBC (Bld) 1.5 % Normal [facility] Comment on above: Order Comment: Speci men Type: BLOOD SPECIMEN Ordering Facility: [facility] Address: [address] [place] [address] Performed By: #### 5 7021-8 #### [facility] CLIA [id number] [address] [place] [address] [place] Differential cell count method Nom (Bld) Auto Normal [facility] Comment on above: Order Comment: Speci men Type: BLOOD SPECIMEN Ordering Facility: [facility] Address: [address] [place] [address] Performed By: #### 5 7021-8 #### [facility] CLIA [id number] [address] [place] [address] [place] Eosinophils (Bld) [#/Vol] 0.25 10*3/uL Normal <0.46 [facility] Comment on above: Order Comment: Speci men Type: BLOOD SPECIMEN Ordering Facility: [facility] Address: [address] [place] [address] Performed By: #### 5 7021-8 #### [facility] CLIA [id number] [address] [place] [address] [place] Eosinophils/100 WBC (Bld) 6.1 % Normal [facility] Comment on above: Order Comment: Speci men Type: BLOOD SPECIMEN Ordering Facility: [facility] Address: [address] [place] [address] Performed By: #### 5 7021-8 #### [facility] CLIA [id number] [address] [place] [address] [place] Erythrocyte distribution width (RBC) [Ratio] 11.9 % Normal 11.5-15.0 [facility] Comment on above: Order Comment: Speci men Type: BLOOD SPECIMEN Ordering Facility: [facility] Address: [address] [place] [address] Performed By: #### 5 7021-8 #### [facility] CLIA [id number] [address] [place] [address] [place] Hematocrit (Bld) [Volume fraction] 41.4 % Normal 36.0-46.0 [facility] Comment on above: Order Comment: Speci men Type: BLOOD SPECIMEN Ordering Facility: [facility] Address: [address] [place] [address] Performed By: #### 5 7021-8 #### [facility] CLIA [id number] [address] [place] [address] [place] Hemoglobin (Bld) [Mass/Vol] 13.6 g/dL Normal 11.5-15.5 [facility] Comment on above: Order Comment: Speci men Type: BLOOD SPECIMEN Ordering Facility: [facility] Address: [address] [place] [address] Performed By: #### 5 7021-8 #### [facility] CLIA [id number] [address] [place] [address] [place] Immature granulocytes (Bld) [#/Vol] 10*3/uL Normal <0.10 [facility] Comment on above: Order Comment: Speci men Type: BLOOD SPECIMEN Ordering Facility: [facility] Address: [address] [place] [address] Performed By: #### 5 7021-8 #### [facility] CLIA [id number] [address] [place] [address] [place] Immature granulocytes/100 WBC (Bld) 0.2 % Normal [facility] Comment on above: Order Comment: Speci men Type: BLOOD SPECIMEN Ordering Facility: [facility] Address: [address] [place] [address] Performed By: #### 5 7021-8 #### [facility] CLIA [id number] [address] [place] [address] [place] Lymphocytes (Bld) [#/Vol] 1.67 10*3/uL Normal 1.00-4.00 [facility] Comment on above: Order Comment: Speci men Type: BLOOD SPECIMEN Ordering Facility: [facility] Address: [address] [place] [address] Performed By: #### 5 7021-8 #### [facility] CLIA [id number] [address] [place] [address] [place] Lymphocytes/100 WBC (Bld) 40.5 % Normal [facility] Comment on above: Order Comment: Speci men Type: BLOOD SPECIMEN Ordering Facility: [facility] Address: [address] [place] [address] Performed By: #### 5 7021-8 #### [facility] CLIA [id number] [facility] [place] [address] [place] MCH (RBC) [Entitic mass] 31.1 pg Normal 26.0-34.0 [facility] Comment on above: Order Comment: Speci men Type: BLOOD SPECIMEN Ordering Facility: [facility] Address: [address] [place] [address] Performed By: #### 5 7021-8 #### [facility] CLIA [id number] [address] [place] [address] [place] MCHC (RBC) [Mass/Vol] 32.9 g/dL Normal 30.5-36.0 [facility] Comment on above: Order Comment: Speci men Type: BLOOD SPECIMEN Ordering Facility: [facility] Address: [address] [place] [address] Performed By: #### 5 7021-8 #### [facility] CLIA [id number] [address] [place] [address] [place] MCV (RBC) [Entitic vol] 94.5 fL Normal 80.0-100.0 [facility] Comment on above: Order Comment: Speci men Type: BLOOD SPECIMEN Ordering Facility: [facility] Address: [address] [place] [address] Performed By: #### 5 7021-8 #### [facility] CLIA [id number] [address] [place] [address] [place] Monocytes (Bld) [#/Vol] 0.34 10*3/uL Normal <0.87 [facility] Comment on above: Order Comment: Speci men Type: BLOOD SPECIMEN Ordering Facility: [facility] Address: [address] [place] [address] Performed By: #### 5 7021-8 #### [facility] CLIA [id number] [address] [place] [address] [place] Monocytes/100 WBC (Bld) 8.3 % Normal [facility] Comment on above: Order Comment: Speci men Type: BLOOD SPECIMEN Ordering Facility: [facility] Address: [address] [place] [address] Performed By: #### 5 7021-8 #### [facility] CLIA [id number] [address] [place] [address] [place] Neutrophils (Bld) [#/Vol] 1.79 10*3/uL Normal 1.45-7.50 [facility] Comment on above: Order Comment: Speci men Type: BLOOD SPECIMEN Ordering Facility: [facility] Address: [address] [place] [address] Performed By: #### 5 7021-8 #### [facility] CLIA [id number] [address] [place] [address] [place] Neutrophils/100 WBC (Bld) 43.4 % Normal [facility] Comment on above: Order Comment: Speci men Type: BLOOD SPECIMEN Ordering Facility: [facility] Address: [address] [place] [address] Performed By: #### 5 7021-8 #### [facility] CLIA [id number] [address] [place] [address] [place] Nucleated RBC (Bld) [#/Vol] 10*3/uL Normal <0.01 [facility] Comment on above: Order Comment: Speci men Type: BLOOD SPECIMEN Ordering Facility: [facility] Address: [address] [place] [address] Performed By: #### 5 7021-8 #### [facility] CLIA [id number] [address] [place] [address] [place] Nucleated RBC/100 WBC (Bld) [Ratio] 0.0 /100 WBC Normal [facility] Comment on above: Order Comment: Speci men Type: BLOOD SPECIMEN Ordering Facility: [facility] Address: [address] [place] [address] Performed By: #### 5 7021-8 #### [facility] CLIA [id number] [address] [place] [address] [place] Platelet mean volume (Bld) [Entitic vol] 10.6 fL Normal 9.0-12.7 [facility] Comment on above: Order Comment: Speci men Type: BLOOD SPECIMEN Ordering Facility: [facility] Address: [address] [place] [address] Performed By: #### 5 7021-8 #### [facility] CLIA [id number] [address] [place] [address] [place] Platelets (Bld) [#/Vol] 287 10*3/uL Normal 150-400 [facility] Comment on above: Order Comment: Speci men Type: BLOOD SPECIMEN Ordering Facility: [facility] Address: [address] [place] [address] Performed By: #### 5 7021-8 #### [facility] CLIA [id number] [address] [place] [address] [place] RBC (Bld) [#/Vol] 4.38 10*6/uL Normal 3.90-5.20 [facility] Comment on above: Order Comment: Speci men Type: BLOOD SPECIMEN Ordering Facility: [facility] Address: [place] [address] Performed By: #### 5 7021-8 #### [facility] CLIA [id number] [address] [place] [address] [place] WBC (Bld) [#/Vol] 4.12 10*3/uL Normal 3.70-11.00 [facility] Comment on above: Order Comment: Speci men Type: BLOOD SPECIMEN Ordering Facility: [facility] Address: [place] [address] Performed By: #### 5 7021-8 #### [facility] CLIA [id number] [address] [place] [address] [place] NURSING PROGon 09-11-2023 NURSING PROG HNO ID: [id number] Author: MARISOL GALLEGOS, RN Service: Nursing Author Type: Registered Nurse Type: Nursing Progress Note Filed: 09/11/2023 13:40 Note Text: Chart reviewed for upcoming surgery. CMP drawn and resulted, CBC not drawn. Attempted to call lab to see if could be taken from lab already drawn-unable to do. Patient called and message left on voicemail of need to have lab completed at any [facility] lab near her home. Normal [facility] Comprehensive metabolic 2000 panelon 09-10-2023 Albumin [Mass/Vol] 4.6 g/dL Normal 3.9-4.9 [facility] Comment on above: Order Comment: Speci men Type: BLOOD SPECIMENOrdering Facility: [facility] Address: [place] [address] Performed By: #### 2 4323-8 ####[facility] [id number] [place] [address] [place] ALP [Catalytic activity/Vol] 130 U/L High 34-123 [facility] Comment on above: Order Comment: Speci men Type: BLOOD SPECIMENOrdering Facility: [facility] Address: [address] [place] [address] Performed By: #### 2 4323-8 ####[facility] [id number] [place] [address] [place] ALT [Catalytic activity/Vol] 124 U/L High 7-38 [facility] Comment on above: Order Comment: Speci men Type: BLOOD SPECIMENOrdering Facility: [facility] Address: [address] [place] [address] Performed By: #### 2 4323-8 ####[facility] [id number] [place] [address] [place] Anion gap [Moles/Vol] 8 mmol/L Low 9-18 [facility] Comment on above: Order Comment: Speci men Type: BLOOD SPECIMENOrdering Facility: [facility] Address: [address] [place] [address] Performed By: #### 2 4323-8 ####[facility] [id number] [place] [address] [place] AST [Catalytic activity/Vol] 35 U/L Normal 13-35 [facility] Comment on above: Order Comment: Speci men Type: BLOOD SPECIMENOrdering Facility: [facility] Address: [address] [place] [address] Performed By: #### 2 4323-8 ####[facility] [id number] [place] [address] [place] Bilirubin [Mass/Vol] 0.2 mg/dL Normal 0.2-1.3 [facility] Comment on above: Order Comment: Speci men Type: BLOOD SPECIMENOrdering Facility: [facility] Address: [address] [place] [address] Performed By: #### 2 4323-8 ####[facility] [id number] [place] [address] [place] Calcium [Mass/Vol] 10.2 mg/dL Normal 8.5-10.2 [facility] Comment on above: Order Comment: Speci men Type: BLOOD SPECIMENOrdering Facility: [facility] Address: [address] [place] [address] Performed By: #### 2 4323-8 ####[facility] [id number] [place] [address] [place] Chloride [Moles/Vol] 100 mmol/L Normal 97-105 [facility] Comment on above: Order Comment: Speci men Type: BLOOD SPECIMENOrdering Facility: [facility] Address: [address] [place] [address] Performed By: #### 2 4323-8 ####[facility] [id number] [place] [address] [place] CO2 [Moles/Vol] 28 mmol/L Normal 22-30 [facility] Comment on above: Order Comment: Speci men Type: BLOOD SPECIMENOrdering Facility: [facility] Address: [address] [place] [address] Performed By: #### 2 4323-8 ####[facility] [id number] [place] [address] [place] Creatinine [Mass/Vol] 0.74 mg/dL Normal 0.58-0.96 [facility] Comment on above: Order Comment: Speci men Type: BLOOD SPECIMENOrdering Facility: [facility] Address: [address] [place] [address] Performed By: #### 2 4323-8 ####[facility] [id number] [place] [address] [place] Creatinine and Glomerular filtration rate.predicted panel (S/P/Bld) 97 mL/min/1.73m??? Normal >=60 [facility] Comment on above: Order Comment: Speci men Type: BLOOD SPECIMENOrdering Facility: [facility] Address: [address] [place] [address] Result Comment: Petra mated Glomerular Filtration Rate (eGFR) is calculated using the 2020 CKD-EPI creatinine equation. This equation utilizes serum creatinine, sex, and age as parameters. The creatinine assay has traceable calibration to isotope dilution-mass spectrometry. Refer to KDIGO guidelines for clinical interpretation. In patients with unstable renal function, e.g. those with acute kidney injury, the eGFR may not accurately reflect actual GFR. Performed By: #### 2 4323-8 ####[facility] [id number] [place] [address] [place] Glucose [Mass/Vol] 93 mg/dL Normal 74-99 [facility] Comment on above: Order Comment: Donte men Type: BLOOD SPECIMENOrdering Facility: [facility] Address: [address] [place] [address] Result Comment: The [place] Diabetes Association (ADA) provides guidance for cutoff values for fasting glucose and random glucose. The ADA defines fasting as no caloric intake for at least 8 hours. Fasting plasma glucose results between 100 to 125 mg/dL indicate increased risk for diabetes (prediabetes). Fasting plasma glucose results greater than or equal to 126 mg/dL meet the criteria for diagnosis of diabetes. In the absence of unequivocal hyperglycemia, results should be confirmed by repeat testing. In a patient with classic symptoms of hyperglycemia or hyperglycemic crisis, random plasma glucose results greater than or equal to 200 mg/dL meet the criteria for diagnosis of diabetes. Reference: Standards of Medical Care in Diabetes 2016, [place] [employer] Association. Diabetes Care. 2016.39(Suppl 1). Performed By: #### 2 4323-8 ####[facility] [id number] [place] [address] [place] Potassium [Moles/Vol] 4.6 mmol/L Normal 3.7-5.1 [facility] Comment on above: Order Comment: Donte men Type: BLOOD SPECIMENOrdering Facility: [facility] Address: [address] [place] [address] Performed By: #### 2 4323-8 ####[facility] [id number] [place] [address] [place] Protein [Mass/Vol] 7.6 g/dL Normal 6.3-8.0 [facility] Comment on above: Order Comment: Speci men Type: BLOOD SPECIMENOrdering Facility: [facility] Address: [address] [place] [address] Performed By: #### 2 4323-8 ####[facility] [id number] [place] [address] [place] Sodium [Moles/Vol] 136 mmol/L Normal 136-144 [facility] Comment on above: Order Comment: Speci men Type: BLOOD SPECIMENOrdering Facility: [facility] Address: [address] [place] [address] Performed By: #### 2 4323-8 ####[facility] [id number] [place] [address] [place] Urea nitrogen [Mass/Vol] 11 mg/dL Normal 7-21 [facility] Comment on above: Order Comment: Speci men Type: BLOOD SPECIMENOrdering Facility: [facility] Address: [address] [place] [address] Performed By: #### 2 4323-8 ####[facility] [id number] [place] [address] [place] ECG COMPLETEon 09-10-2023 ECG COMPLETE Ventricular Rate : 6 7 BPM Atrial Rate : 67 BPM P-R Interval : 150 ms QRS Duration : 86 ms Q-T Interval : 414 ms QTC Calculation(Bazett) : 437 ms Calculated P [place] : 58 degrees Calculated R [place] : 38 degrees Calculated T [place] : 38 degrees NORMAL SINUS RHYTHM NORMAL ECG Confirmed by ALFONZO ARGUETA, IZABEL-DESMOND ([id number]) on 09/11/2023 7:14:45 AM NAME : STACIE DAVIDSON PID : [id number] : 1970 Gender : Female Race : ORD : [id number] Procedure Date : Sep 10 2023 16:23:01 Edit Date : Sep 11 2023 07:14:48 Diagnosis: NORMAL SINUS RHYTHM NORMAL ECG Confirmed by DIAZ MEJÍA MD ([id number]) on 09/11/2023 7:14:45 AM Test Reason : SURGERY Location : 545 : [facility] Overread By : DIAZ MEJÍA MD Edited By : DIAZ MEJÍA MD Referred By : UTE MG Acquired by : Afshan FENG [facility] HISTORY PHYSICALon HISTORY PHYSICAL HNO ID: [id number] Author: ROXANN FRANCOIS APRN.ALVIN Service: ? Author Type: Nurse Practitioner Type: H&P Filed: 09/11/2023 05:49 Note Text: HISTORY AND PHYSICAL EXAMINATION SERVICE DATE: 09/10/2023 SERVICE TIME: 4:35 PM PRIMARY CARE PHYSICIAN: Marry Schroeder, ALVIN, TOOL TROUBLE SHOOTER REASON FOR VISIT: Stacie Davidson is a 53 year old female who is scheduled for Procedure(s) (LRB): LAPAROSCOPIC CHOLECYSTECTOMY WITH GRAMS (N/A) at the request of Dr. Ute Mg for consultation. My final recommendation will be communicated back to the requesting physician by way of shared medical record or letter. The patient has the following: ACTIVE PROBLEM LIST Asthma Cholelithiasis Depression Gastroesophageal Reflux Disease Bmi 31.0-31.9,Adult S/P Lumpectomy, Left Breast Subjective CHIEF COMPLAINT: Calculus of gallbladder without cholecystitis without obstruction [K80.20] HPI: Patient is a 53 year old FEMALE presenting for pre-op evaluation for the above procedure. Patient denies any chest pain, shortness of breath, palpitations, fever/chills, nausea/vomiting, fatigue, or diarrhea. 9/10 pain at today's visit. Recommended for above surgery. PAST MEDICAL HISTORY Diagnosis Date Asthma Depression GERD (gastroesophageal reflux disease) PAST SURGICAL HISTORY Procedure Laterality Date PAST SURGICAL HISTORY OF Left 1988 lumpectomy History reviewed. No pertinent family history. SOCIAL HISTORY: Social History Tobacco Use Smoking status: Never Smokeless tobacco: Never Vaping Use Vaping Use: Never used Substance Use Topics Alcohol use: Not Currently Drug use: Never Prior to Admission medications as of 09/10/23 1627 Medication Sig Last Dose Taking Lactobacillus acidophilus (PROBIOTIC ORAL) Take by mouth once daily. Taking Yes buPROPion SR (WELLBUTRIN SR) 150 mg 12 hr tablet Wellbutrin Taking Yes citalopram (CELEXA) 40 mg tablet Take 40 mg by mouth. Taking Yes omeprazole (PRILOSEC) 40 mg capsule Take 40 mg by mouth. Taking Yes predniSONE (DELTASONE) 50 mg Take 1 tablet 13 hours, 7 hours, and 1 hour before Cat Scan diphenhydrAMINE (BENADRYL) 25 mg capsule Take both capsules [address] Scan iv contrast (will be provided with radiology test) CT LIVER W IVCON Inject, intravenously, once for 1 dose. No IV access, insert saline lock prior to the beginning of sedation, infusion, injection of imaging exam. Discontinue saline lock post exam. If Pt. has a central line or IVAD, may access for administration according to line specific nursing protocol. Once exam is complete flush line and de-access according to line specific nursing protocol in the CT contrast administration guidelines link. No medication comments found. ALLERGIES Allergen Reactions Sulfa (Sulfonamide * Rash Tetracyclines Itching, Rash, Shortness of Breath Covid Immunization Dates Overdue - Covid-19 Vaccine ( season) Overdue since 04/24/2023 12/29/2020 Imm Admin: COVID-19 original vaccine, age 12+ yr, monovalent (Hot Hotels-BIONTRentJiffy - PURPLE TOP) 12/08/2020 Imm Admin: COVID-19 original vaccine, age 12+ yr, monovalent (PFIZER-BIONTECH - PURPLE TOP) REVIEW OF SYSTEMS: PAIN ASSESSMENT: General: No weight loss, malaise or fevers. Neuro: No history of TIA's, stroke, LOG PREPARER tumor, impaired sensorium, hemiplegia, paraplegia or quadraplegia. No neurological symptoms or problems. Respiratory: Positive for Asthma, , Negative for Current cough, Pneumonia within 6 weeks (date) Cardiovascular: No history of HTN requiring medication, no history of angina, CHF, PA, cardiac surgery or stents. Denies rest pain, gangrene or revascularization/ampu tation for PVD. No history of cardiovascular symptoms or problems. GI: Positive for GERD, gallstones, Negative for Vomiting, Abdominal pain, Difficulty swallowing : No history of dysuria, frequency or incontinence,, stones or chronic kidney disease BUSINESS TRANSFORMATION ANALYST: Negative for abnormal vaginal bleeding, abnormal vaginal discharge. : Denies, No LMP recorded. Patient is postmenopausal. Endocrine: No history of diabetes. Has not taken steroids within the past 30 days. No history of endocrinological symptoms or problems. Hematology: No history of bleeding or clotting disorder. Pt is not taking anti-coagulation or platelet medications. No history of hematological symptoms or problems. Oncology: No history of CA metastasis, chemo within 30 days, or radiotherapy within 90 days. Has not lost 10% of body wt in 6 months. No history of oncological symptoms or problems. Psych: Depression Musculoskeletal: Negative for joint pain or swelling, back pain or muscle pain. Skin: Negative for lesions, rash and itching. Objective PHYSICAL EXAM: VITALS: BP 146/63 Pulse 69 Temp (Src) 98.1 (Temporal Artery) Resp 18 Ht 5' 1 (1.55m) Wt 167 lb 8.8 oz (76.0kg) SpO2 100% BMI 31.67 kg/(m2). General: Alert and oriented, No acute distress Skin: Normal col (more content not included)... Normal [facility] CNOVon 09-04-2023 CNOV Office Visit (BMIREJ ) STACIE DAVIDSON ([id number]) 1970 F Date Time Provider Department 09/04/23 10:00 AM UTE MG BMIREJ During your visit today, we recorded the following information about you: Pulse Blood pressure Weight Height 80/minute 148/84 76.1 kg 1.549 m Ute Mg MD 09/04/2023 1:38 PM Signed Assessment NEW LIVER CONSULT PATIENT NAME: Stacie Davidson REASON FOR CONSULT: Right upper quadrant pain REQUESTING PHYSICIAN: Dr. Roxann Thacker DATE of SERVICE: 09/03/2023 TIME of SERVICE: 8:47 AM PCP: No primary care provider on file. 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 Thacker for right upper quadrant abdominal pain. Patient had a significant attack of acute right upper quadrant discomfort around Thanksgiving. She subsequently underwent imaging that noted cholelithiasis. She was also noted to have a hemangioma. Subsequent CT liver noted a hemangioma in segment 4B/5, with the gallbladder on the hemangioma. She was seen by Dr. Thacker and was subsequently referred to me for consideration of cholecystectomy given the hemangioma. Patient endorses ongoing right upper quadrant discomfort. She notes that her pain is worse with eating especially fatty foods. She has not had any issues similar to this in the past. She also did not know about the diagnosis of hemangioma previously which is also new to her. She is quite healthy. She works at the [employer], no heavy lifting involved. She does not smoke and she does not consume significant amounts of alcohol. She does not have any previous liver issues. She does not have any pertinent family history. Rest of her history is as above and otherwise noncontributory. Referred by Dr. Cuong Arevalo dx: RUQ pain, enlarging hemangioma, cholelithiasis History of: Abdominal pain:Yes Nausea/Vomitting:No Hematemesis: No Bleeding per rectum:No Loss of appetite:No Diarrhea:No Jaundice:No Pruritis:No Pale colored stools: No H/O Cholangitis:No Anemia: No Weight loss:No H/O inflammatory bowel disease:No H/O primary sclerosing cholangitis:No H/O blood transfusion or trauma: No H/O IVDU :No H/O Hepatitis:No H/O Cirrhosis:No Family history of pancreas/liver/biliary cancer:No US RUQ 07/18/2013 July 27, 2023 PAST MEDICAL HISTORY: No past medical history on file. PAST SURGICAL HISTORY: No past surgical history on file. FAMILY HISTORY: No family history on file. SOCIAL HISTORY: Review of Systems: The remainder of the review of systems is negative. PHYSICAL EXAMINATION: BP 148/84 Pulse 80 Ht 154.9 cm (5' 1 ) Wt 76.1 kg (167 lb 12.8 oz) BMI 31.71 kg/m? General appearance: Well appearing, alert, in no acute distress, well-hydrated, well nourished. Skin: Skin color, texture, turgor normal, no suspicious rashes or lesions Abdomen: Normal abdominal exam, Abdomen soft, non-tender. Bowel sounds normal. 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 Thacker for right upper quadrant abdominal pain. Patient had a significant attack of acute right upper quadrant discomfort around [facility]. She subsequently underwent imaging that noted cholelithiasis. She was also noted to have a hemangioma. Subsequent CT liver noted a hemangioma in segment 4B/5, with the gallbladder on the hemangioma. She was seen by Dr. Thacker and was subsequently referred to me for consideration of cholecystectomy given the hemangioma. Patient endorses ongoing right upper quadrant discomfort. She notes that her pain is worse with eating especially fatty foods. She has not had any issues similar to this in the past. She also did not know about the diagnosis of hemangioma previously which is also new to her. She is quite healthy. She works at the [employer], no heavy lifting involved. She does not smoke and she does not consume significant amounts of alcohol. She does not have any previous liver issues. She does not have any pertinent family history. Rest of her history is as above and otherwise noncontributory. Her physical examination is unremarkable. She is never had any abdominal surgeries. I have reviewed her imaging. Ultrasound notes cholelithiasis. Her CT liver notes a 4 cm hemangioma at the base of her gallbladder. She does appear to have findings suggestive of acute cholecystitis on her CT liver although clinically she does not have symptoms of it. There are no LFTs on file with us. Patient with likely symptomatic cholelithiasis based on symptoms. Confounding fa (more content not included)... Normal [facility] CT LIVER W IVCONon 3 CT LIVER W IVCON * * *Final Report* * * DATE OF EXAM: Aug 21 2023 9:30AM [facility] 0548 - CT LIVER W IVCON / PROCEDURE REASON: multiple diagnoses * * * * Physician Interpretation * * * * RESULT: EXAMINATION: CT ABDOMEN WITH IV CONTRAST (LIVER) CLINICAL HISTORY: Evaluate liver lesion TECHNIQUE: Multiphase imaging of the abdomen was performed utilizing IV contrast only (Liver mass / Liver donor protocol). Contrast: IV: 150 ml of Omnipaque 300 Oral: none CT Radiation dose: Integrated Dose-length product (DLP) for this visit = 1702 mGy*cm. CT Dose Reduction Employed: Automated exposure control (AEC) COMPARISON: CT abdomen/pelvis 05/21/2022 RESULT: Liver: Normal liver morphology. A hemangioma within hepatic segment 5 with characteristic peripheral nodular enhancement and centripetal fill measures 4.4 x 3.6 cm on series 7, image 147 (previously 4.8 x 3.1 cm). A characteristic hemangioma within hepatic segment 6 measures 2.8 x 2.1 cm on series 7, image 163 (previously 2.8 x 2.1 cm). A 0.6 hypodensity within hepatic segment 7 (series 7, image 122) is unchanged, too small to characterize, but likely also a hemangioma. No suspicious hepatic mass. Hepatic vasculature and collaterals: Portal venous system (splenic vein, main portal vein, left and right anterior and right posterior portal vein branches): Patent. Celiac trunk and SMA: Patent. No stenosis. Hepatic artery: Patent. Conventional anatomy. Incidentally noted early takeoff of the right hepatic artery from the proximal common hepatic origin. Hepatic veins: Patent. Other findings: Spleen: 10.1 cm (craniocaudally), normal. No mass. Mesentery/Peritoneum: No ascites. No mass. Biliary: No bile duct dilation. The gallbladder is unremarkable. Pancreas: The pancreas is normal in morphology and enhancement. The main pancreatic duct is nondilated. Adrenals: The right adrenal is unremarkable. A 0.9 cm left adrenal nodule is unchanged, technically indeterminate, but likely an adenoma. Kidneys: The kidneys enhance homogeneously. No suspicious renal mass. No collecting system dilatation. Subcentimeter hypodensities within the renal cortices are too small to catheterize, but likely represent cysts. A 0.4 cm nonobstructive calculus is present within the left renal lower pole. GI tract: Imaged bowel loops are normal in caliber and without evidence of wall thickening or obstruction. There is a small hiatal hernia. Lymph nodes: No abdominal lymphadenopathy. Vasculature (other): No abdominal aortic aneurysm. Bones/Soft Tissues: No significant finding. Lower thorax: There is mild bibasilar juxtapleural subsegmental atelectasis. Wrist Hemmer (topogram) images: No additional findings. IMPRESSION: 1. Since 05/21/2022, unchanged hemangiomas within the right hepatic lobe, as detailed within the results section. 2. A 0.6 cm hypodensity within hepatic segment 7 is also unchanged, too small to accurately characterize, but likely also hemangioma. 3. No suspicious hepatic mass. Transcribe Date/Time: Aug 21 2023 12:50P Dictated by: HERNANDEZ SIDDIQUI MD This examination was interpreted and the report reviewed and electronically signed by: HERNANDEZ SIDDIQUI MD on Aug 21 2023 1:11PM EST Thank you for allowing us to participate in the care of your patient. Should there be any questions regarding this interpretation, please call [phone]. If you are unable to reach us at the number above, please feel free to contact [facility] eRadiology at [phone]. [id number] Normal [facility] STACIE DAVIDSON ([id number]) 1970 F Date Time Provider Department 07/27/23 UTE MG [facility] During your visit today, we recorded the following information about you: Milagro Ag 07/27/2023 10:46 AM Signed Referral received and scanned into [facility]. Reason for referral hepatic hemangioma, RUQ pain and cholelithiasis Emerald Gordillo RN 07/30/2023 1:23 PM Signed [facility] Referral Referred by Dr. Cuong Arevalo dx: RUQ pain, enlarging hemangioma, cholelithiasis US RUQ 07/18/2013 Emerald Gordillo RN 08/04/2023 11:38 AM Signed Call to patient to discuss need for further imaging prior to consult visit. Dr. Mg is recommending CT liver Patient reports having a CT last year and dye caused her a 3 day migraine Denies rash, hives, or shortness of breathe. Patient agreeable to repeat CT w IVCON. Will order pre medication to aid in preventing side effects Provided patient with Brody VALENZUELAF appt number to schedule CT Pre medication will be sent to patient pharmacy. Patient to call our office after CT Liver is scheduled to schedule new consult with Dr. Mg. Allergies As of Date: 07/27/2023 (Not on File) Date Reviewed: Never Reviewed Reason for Visit: Consult [173] Primary Visit Diagnosis:Calculus of gallbladder without cholecystitis without obstruction [K80.20] Other Visit Diagnosis:Liver mass [R16.0] Order(s):CT LIVER W IVCON [3405822] Order #: [id number] FUTURE iv contrast (will be provided with radiology test)CT LIVER W IVCON Inject, intravenously, once for 1 dose. No IV access, insert saline lock prior to the beginning of sedation, infusion, injection of imaging exam. Discontinue saline lock post exam. If Pt. has a central line or IVAD, may access for administration according to line specific nursing protocol. Once exam is complete flush line and de-access according to line specific nursing protocol in the CT contrast administration guidelines link.Disp: 1 EachRfl: 0 predniSONE (DELTASONE) 50 mgTake 1 tablet 13 hours, 7 hours, and 1 hour before Cat ScanDisp: 3 tabletRfl: 0 diphenhydrAMINE (BENADRYL) 25 mg capsuleTake both capsules [address] ScanDisp: 2 capsuleRfl: 0 Prescriptions as of 08/05/2023 - predniSONE (DELTASONE) 50 mg Take 1 tablet 13 hours, 7 hours, and 1 hour before Cat Scan - diphenhydrAMINE (BENADRYL) 25 mg capsule Take both capsules [address] Scan - iv contrast (will be provided with radiology test) CT LIVER W IVCON Inject, intravenously, once for 1 dose. No IV access, insert saline lock prior to the beginning of sedation, infusion, injection of imaging exam. Discontinue saline lock post exam. If Pt. has a central line or IVAD, may access for administration according to line specific nursing protocol. Once exam is complete flush line and de-access according to line specific nursing protocol in the CT contrast administration guidelines link. Problem List As Of Date: 07/27/2023 (None) Prescriptions ordered this encounter Disp Refills Start End IV CONTRAST (RADIOLOGY PROCEDURE) 1 Ea* 0 08/03/2023 Class: In Office Sig: CT LIVER W IVCON Inject, intravenously, once for 1 dose. No IV access, insert saline lock prior to the beginning of sedation, infusion, injection of imaging exam. Discontinue saline lock post exam. If Pt. has a central line or IVAD, may access for administration according to line specific nursing protocol. Once exam is complete flush line and de-access according to line specific nursing protocol in the CT contrast administration guidelines link. PREDNISONE 50 MG TABLET 3 ta* 0 08/04/2023 Sig: Take 1 tablet 13 hours, 7 hours, and 1 hour before Cat Scan DIPHENHYDRAMINE 25 MG CAPSULE 2 ca* 0 08/04/2023 Sig: Take both capsules [address] Scan Encounter Status:Closed by EMERALD GORDILLO RN on 08/05/23 [facility] Ambulatory Visit Summaryon 1 09-22-2022 Ambulatory Visit Summary STACIE DAVIDSON :1970 Visit Date:07/23/2023 Ambulatory Visit Instructions Your Care Team Attending Physician - CUONG ARGUETA, Roxann Pride Primary Care Physician - MARRY SCHROEDER CNP This Is Your Medications List buPROPion (Wellbutrin SR 150 mg Tab-ER) citalopram (CeleXA 40 mg Tab) omeprazole (omeprazole 40 mg Cap-DR) Procedures Performed None. Discharge Vitals Heart Rate (Peripheral) 88 Respiratory Rate 16 Blood Pressure 140/88 Height 154.9 cm Height 61 in Weight 76.3 kg Weight 167.86 lb BMI 31.8 Medications What How Much When Instructions Unchanged buPROPion (Wellbutrin SR 150 mg Tab-ER) 1 Tablets By Mouth Every day Unchanged citalopram (CeleXA 40 mg Tab) 1 Tablets By Mouth Every day Unchanged omeprazole (omeprazole 40 mg Cap-DR) 1 Capsules By Mouth Every day Medications and Immunizations Administered Not Given influenza virus vaccine, inactivated, Patient Refuses Allergies sulfa drugs (Rash) tetracycline (SOB - Shortness of breath) Problems Ongoing - Any problem that you are currently receiving treatment for. Asthma BMI 31.0-31.9,adult Cholelithiasis Depression Fibromyalgia Hepatic hemangioma History of gastric ulcer Obesity Patient Survey You may receive a survey via text or e-mail asking about your office visit. Please share your experience with us by completing your survey. We appreciate your feedback and thank you for choosing us for your care. Normal [facility] ED Note-Physicianon 07-23-20 ED Note-Physician [id number]#[id number] TIFF Normal [facility] RAD - Ultrasound Reporton RAD - Ultrasound Report [id number]#1. 00TIFF Normal [facility] Urinalysis - AUTOMATEDon Appearance (U) cloudy [employer] Other Bilirubin Ql (U) Negative [employer] Other Color (U) dark yellow [employer] Other Glucose Ql (U) Negative [employer] Other Hemoglobin Ql (U) Large [employer] Other Ketones Ql (U) Negative [employer] Other Leukocyte esterase Test strip Ql (U) [employer] Other Nitrite Ql (U) Negative [employer] Other pH (U) 6.0 [pH] [employer] Other Protein Ql (U) >300 [employer] Other Specific gravity (U) [Rel density] >1.030 [employer] Other Urobilinogen (U) [Mass/Vol] 0.2 mg/dL [employer] Other Urinalysis - AUTOMATED [employer] Other Urine Cultureon 07-11-2023 Bacteria identified Cx Nom (U) ORGANISM: Escherichia coli (O:ESCCOL) Purvis Count >100,000 Aerobic ANIYAH Charge (NMIC56) --- SUSCEPTIBILITY -- ORGANISM: O:ESCCOL ANTIBIOTIC INTERPRETATION ANIYAH Amikacin S <16 Amoxacillin/K Clavulanate S <8 Ampicillin R >16 Ampicillin/Sulbactam I 1616/8 Aztreonam S <4 Cefazolin S 4 Cefepime S <2 Ceftazidime S <1 Ceftazidime/Avibactam S <4 Ceftolozane/Tazobactam S <2 Ceftriaxone S <1 Cefuroxime S <4 Ciprofloxacin S <0.25 Ertapenem S <0.5 Gentamicin S <2 Levofloxacin S <0.5 Meropenem S <1 Meropenem/Vaborbactam S <2 Nitrofurantoin S <32 Piperacillin/Tazobacta m S <8 Tetracycline S <4 Tigecycline S <2 Tobramycin S <2 Trimethoprim/Sulfameth oxazole S <0.5 S = SUSCEPTIBLE I = INTERMEDIATE R = RESISTANT BLANK = DATA NOT AVAILABLE, OR DRUG NOT ADVISABLE OR TESTED R* = RESISTANCE DUE TO EXTENDED SPECTRUM BETA-LACTAMASES ESBL = EXTENDED SPECTRUM BETA-LACTAMASE TFG = THYMIDINE-DEPENDENT STRAIN JESICA = BETA-LACTAMASE POSITIVE IB = INDUCIBLE BETA-LACTAMASE. APPEARS IN PLACE OF 'S' WITH SPECIES KNOWN TO POSSESS INDUCIBLE BETA-LACTAMASES. POTENTIALLY THEY MAY BECOME RESISTANT TO ALL B-LACTAM DRUGS. PERFORMED BY: [place] [address] PATHOLOGIST FACTORY LAY OUT ENGINEER ALICE MOORE M.D. Normal [facility] Comment on above: Performed By: #### C UU #### [address] Urine Culture >100,000 [employer] Other ALONDRA by IFAon 10-08-2022 Antinuclear Antibodies, IFA Positive Abnormal [facility] Comment on above: Result Comment: Nega tive <1:80 Borderline 1:80 Positive >1:80 Performed By: #### A NAIFA ####[facility] [address] [id number]. Nish Beauchamp Centriole Pattern Normal [facility] Comment on above: Performed By: #### A NAIFA ####[facility] [address] [id number]. Nish Beauchamp Centromere Pattern Normal [facility] Comment on above: Performed By: #### A NAIFA ####[facility] [address] [id number]. Nish Beauchamp Homogeneous Pattern Normal [facility] Comment on above: Performed By: #### A NAIFA ####[facility] [address] [place] [address]Dr. Nish Beauchamp Midbody Pattern Normal [facility] Comment on above: Performed By: #### A NAIFA ####[facility] [address] [place] [address]Dr. Nish Beauchamp Note: Comment Normal [facility] Comment on above: Result Comment: For more information about Hep-2 cell patterns use ANApatterns.org, the official website for the International Consensus on Antinuclear Antibody (ALONDRA) Patterns (ICAP). A positive ALONDRA result may occur in healthy individuals (low titer) or be associated with a variety of diseases. See interpretation chart which is not all inclusive: . Pattern Antigen Detected Suggested Disease Association Homogeneous DNA(ds,ss), SLE - High titers Nucleosomes, Histones Drug-induced SLE Speckled Sm, OBSERVER ELECTRICAL PROSPECTING, SCL-70, SLE,MCTD,PSS (diffuse form), SS-A/SS-B Sjogrens Nucleolar SCL-70, PM-1/SCL High titers Scleroderma, PM/DM Centromere Centromere PSS (limited form) w/Crest syndrome variable Nuclear Dot [id number] Primary Biliary Cirrhosis Nuclear GP210, Primary Biliary Cirrhosis Membrane stefan A,B,C Performed By: #### A ZARINA ####[facility] [address] [place] [address]DrJailene Beauchamp Nuclear Dot Pattern Normal [facility] Comment on above: Performed By: #### A ZARINA ####[facility] [address] [place] [phone] Beauchamp Nuclear Membrane Pattern Normal [facility] Comment on above: Performed By: #### Patricio SRINIVASAN ####[facility] [address] [place] [address]Dr. Nish Beauchamp Nucleolar Pattern Normal [facility] Comment on above: Performed By: #### A NAIFA ####[facility] [address] [place] [address]Dr. Nish Beauchamp PCNA Pattern Normal [facility] Comment on above: Performed By: #### A NAIFA ####[facility] [address] [place] [address]Dr. Nish Beauchamp Speckled Pattern 1:640 Critically high [facility] Comment on above: Result Comment: Dens e Fine Speckled pattern is noted. This pattern suggests the presence of DFS70 antibody which has a low prevalence in systemic autoimmune rheumatic diseases. ICAP nomenclature: AC-2,4,5,29 Performed By: #### A NAIFA ####[facility] [address] [place], [place] [address]Dr. Nish Beauchamp Spindle Apparatus Pattern Normal [facility] Comment on above: Performed By: #### A NAIFA ####[facility] [address] [place], [place] [address]Dr. Nish Beauchamp ANTISTREPTOLYSIN O AB (ASO)o n 10-05-2022 Antistreptolysin O Ab 250.4 IU/mL Critically high 0.0-200.0 [facility] Comment on above: Performed By: #### A SOAB #### [facility] [address] [address] [address] Nish Beauchamp RHEUMATOID FACTORon 10-05-19 23 RA Latex Turbid. 10.8 IU/mL Normal <14.0 [facility] Comment on above: Performed By: #### R F ####[facility] [address] [place], [place] [address]DrJailene Beauchamp CBC AUTO DIFFon 10-04-2022 BASO # 0.1 103/ul Normal 0.0-0.1 [facility] Comment on above: Performed By: #### C BC ####[facility] [address] [place], [place] [address]DrJailene Beauchamp Basophils/100 WBC (Bld) 1.2 % Normal 0.2-2.0 [facility] Comment on above: Performed By: #### C BC ####[facility] [address] [place], [place] [address]Dr. Nish Beauchamp EO # 0.2 103/ul Normal 0.0-0.7 [facility] Comment on above: Performed By: #### C BC ####[facility] U[address] [place], [place] [address]Dr. Nish Beauchamp Eosinophils/100 WBC (Bld) 3.6 % Normal 0.9-7.0 [facility] Comment on above: Performed By: #### C BC ####[facility] [address] [place], [place] [address]Dr. Nish Beauchamp Erythrocyte distribution width (RBC) [Ratio] 12.4 % Normal 11.0-15.0 [facility] Comment on above: Performed By: #### C BC ####[facility] [address] [place], [place] [address]Dr. Nish Beauchamp Hematocrit (Bld) [Volume fraction] 42.6 % Normal 36.0-48.0 [facility] Comment on above: Performed By: #### C BC ####[facility] [address] [place], [place] [address]Dr. Nish Beauchamp Hemoglobin (Bld) [Mass/Vol] 14.2 g/dL Normal 12.0-16.0 [facility] Comment on above: Performed By: #### C BC ####[facility] [address] [place], [place] [address]Dr. Nish Beauchamp IG # 0.01 10e3/ul Normal 0.00-0.03 [facility] Comment on above: Performed By: #### C BC ####[facility] [address] [place], [place] [address]Dr. Nish Beauchamp IG % 0.2 % Normal 0.0-0.5 [facility] Comment on above: Performed By: #### C BC ####[facility] [address] [place], [place] [address]DrJailene Beauchamp LYMPH # 2.0 103/ul Normal 1.2-3.8 [facility] Comment on above: Performed By: #### C BC ####[facility] [address] [place] [phone] Beauchamp Lymphocytes/100 WBC (Bld) 37.6 % Normal 20.5-60.0 [facility] Comment on above: Performed By: #### C BC ####[facility] [address] [place] [address]DrJailene Beauchamp MANUAL DIFF REQ NO Normal [facility] Comment on above: Performed By: #### C BC ####[facility] [address] [place] [address]DrJailene Beauchamp MCH (RBC) [Entitic mass] 30.9 pg Normal 26.7-34.0 [facility] Comment on above: Performed By: #### C BC ####[facility] [address] [place], [place] [address]DrJailene Beauchamp MCHC (RBC) [Mass/Vol] 33.3 g/dL Normal 29.9-35.2 [facility] Comment on above: Performed By: #### C BC ####[facility] [address] [place], [place] [address]DrJailene Beauchamp MCV (RBC) [Entitic vol] 92.6 fL Normal 81.0-99.0 [facility] Comment on above: Performed By: #### C BC ####[facility] [address] [place], [place] [address]DrJailene Beauchamp MONO # 0.5 103/ul Normal 0.3-0.8 [facility] Comment on above: Performed By: #### C BC ####[facility] [address] [place], [place] [address]DrJailene Beauchamp Monocytes/100 WBC (Bld) 9.2 % Normal 1.7-12.0 [facility] Comment on above: Performed By: #### C BC ####[facility] [address] [place], [place] [address]DrJailene Beauchamp NEUT # 2.5 103/ul Normal 1.4-6.5 [facility] Comment on above: Performed By: #### C BC ####[facility] [address] [place] [address]Dr. Nish Beauchamp Neutrophils/100 WBC (Bld) 48.2 % Normal 43.0-75.0 [facility] Comment on above: Performed By: #### C BC ####[facility] [address] [place] [address]Dr. Nish Beauchamp Platelet mean volume (Bld) [Entitic vol] 9.8 fL Normal 9.5-13.5 [facility] Comment on above: Performed By: #### C BC ####[facility] [address] [place] [address]Dr. Nish Beauchamp PLT 301 103/ul Normal 150-450 [facility] Comment on above: Performed By: #### C BC ####[facility] [address] [place] [address]Dr. Nish Beauchamp RBC 4.60 106/ul Normal 4.20-5.40 [facility] Comment on above: Performed By: #### C BC ####[facility] [address] [place] [address]Dr. Nish Beauchamp WBC 5.2 103/ul Normal 4.0-11.0 [facility] Comment on above: Performed By: #### C BC ####[facility] [address] [place] [phone]. Nish Beauchamp CRPon 10-04-2022 CRP [Mass/Vol] mg/L Normal <=1.0 [facility] Comment on above: Performed By: #### C RP, URIC, CMP, TSH ####[facility] [address] [place] [address]Dr. Nish Beauchamp FREE T4on 10-04-2022 Free T4 [Mass/Vol] 0.87 ng/dL Normal 0.76-1.46 [facility] Comment on above: Performed By: #### V ITB12, FT4 #### [facility] [address] [address] [address] Nish Beauchamp PROF 14(COMP METB)on 023 Albumin [Mass/Vol] 4.2 g/dL Normal 3.4-5.0 [facility] Comment on above: Performed By: #### C RP, URIC, CMP, TSH ####[facility] [address] [place] [address]Dr. Nish Beauchamp Albumin/Globulin [Mass ratio] 1.1 {ratio} Normal [facility] Comment on above: Performed By: #### C RP, URIC, CMP, TSH ####[facility] [address] [place] [address]Dr. Nish Beauchamp ALP [Catalytic activity/Vol] 90 U/L Normal 46-116 [facility] Comment on above: Performed By: #### C RP, URIC, CMP, TSH ####[facility] [address] [place] [address]Dr. Nish Beauchamp ALT [Catalytic activity/Vol] 63 U/L Critically high 14-59 [facility] Comment on above: Performed By: #### C RP, URIC, CMP, TSH ####[facility] [address] [place] [address]Dr. Nish Beauchamp Anion gap [Moles/Vol] 12.7 mmol/L Normal [facility] Comment on above: Performed By: #### C RP, URIC, CMP, TSH ####[facility] [address] [place] [address]Dr. Nish Beauchamp AST [Catalytic activity/Vol] 38 U/L Critically high 15-37 [facility] Comment on above: Performed By: #### C RP, URIC, CMP, TSH ####[facility] [address] [place] [address]Dr. Nish Beauchamp Bilirubin [Mass/Vol] 0.3 mg/dL Normal 0.2-1.0 [facility] Comment on above: Performed By: #### C RP, URIC, CMP, TSH ####[facility] [address] [place] [address]Dr. Nish Beauchamp Calcium [Mass/Vol] 9.4 mg/dL Normal 8.5-10.1 [facility] Comment on above: Performed By: #### C RP, URIC, CMP, TSH ####[facility] [address] [place] [address]Dr. Nish Beauchamp Chloride [Moles/Vol] 100 mmol/L Normal 98-107 [facility] Comment on above: Performed By: #### C RP, URIC, CMP, TSH ####[facility] [address] [place] [address]Dr. Nish Beauchamp CO2 [Moles/Vol] 30.1 mmol/L Normal 21.0-32.0 [facility] Comment on above: Performed By: #### C RP, URIC, CMP, TSH ####[facility] [address] [place] [address]Dr. Nish Beauchamp Creatinine [Mass/Vol] 0.75 mg/dL Normal 0.55-1.02 [facility] Comment on above: Performed By: #### C RP, URIC, CMP, TSH ####[facility] [address] [place] [address]Dr. Nish Beauchamp EGFR-AF ARMENIAN >60 Normal >=60 [facility] Comment on above: Performed By: #### C RP, URIC, CMP, TSH ####[facility] [address] [place] [address]Dr. Nish Beauchamp EGFR-NON AF ARMENIAN >60 Normal >=60 [facility] Comment on above: Performed By: #### C RP, URIC, CMP, TSH ####[facility] [address] [place] [address]Dr. Nish Beauchamp Globulin (S) [Mass/Vol] 3.9 g/dL Normal [facility] Comment on above: Performed By: #### C RP, URIC, CMP, TSH ####[facility] [address] [place] [address]Dr. Nish Beauchamp Glucose [Mass/Vol] 95 mg/dL Normal 74-106 [facility] Comment on above: Performed By: #### C RP, URIC, CMP, TSH ####[facility] [address] [place] [id number]. Nish Beauchamp Potassium [Moles/Vol] 3.8 mmol/L Normal 3.5-5.1 [facility] Comment on above: Performed By: #### C RP, URIC, CMP, TSH ####[facility] [address] [place] [id number]. Nish Beauchamp Protein [Mass/Vol] 8.1 g/dL Normal 6.4-8.2 [facility] Comment on above: Performed By: #### C RP, URIC, CMP, TSH ####[facility] [address] [place] [address]Dr. Nish Beauchamp Sodium [Moles/Vol] 139 mmol/L Normal 136-145 [facility] Comment on above: Performed By: #### C RP, URIC, CMP, TSH ####[facility] [address] [place] [address]Dr. Nish Beauchamp Urea nitrogen [Mass/Vol] 13.0 mg/dL Normal 7.0-18.0 [facility] Comment on above: Performed By: #### C RP, URIC, CMP, TSH ####[facility] [address] [place] [address]Dr. Nish Beauchamp Urea nitrogen/Creatinine [Mass ratio] 17.3 mg/mg Normal [facility] Comment on above: Performed By: #### C RP, URIC, CMP, TSH ####[facility] [address] [place] [address]DrJailene Beauchamp [facility] 37 mm/hr Critically high <=[address] [facility] Comment on above: Performed By: #### S EDR #### [facility] [address] [place] [address] [address] Nish Beauchamp TSHon 10-04-2022 TSH 0.876 uIU/mL Normal 0.358-3.740 [facility] Comment on above: Performed By: #### C RP, URIC, CMP, TSH ####[facility] [address] [place], [place] [address]Tb. Nish Beauchamp URIC ACID SERUMon 10-04-2022 Urate [Mass/Vol] 4.8 mg/dL Normal 2.6-6.0 [facility] Comment on above: Performed By: #### C RP, URIC, CMP, TSH ####[facility] [address] [place], [place] [address]Lm. Nish Beauchamp VITAMIN B12on 10-04-2022 Cobalamin (Vitamin B12) [Mass/Vol] 439.0 pg/mL Normal 193.0-986.0 [facility] Comment on above: Performed By: #### V ITB12, FT4 #### [facility] [address] [place], [place] [address] Dr. Nish Beauchamp MG MAMM SCREEN 3D MARY CADon 08-05-2022 MG MAMM SCREEN 3D MARY CAD Patient: STACIE DAVIDSON Exam Date: 08/05/2022 : 1970 Gender:F Ordering : ALVIN [facility] Admission #: [id number] Family : Order #: [id number] CLICK HERE TO VIEW EXAM RADIOLOGY REPORT PROCEDURE: MAMMOGRAM SCREENING 3D BILATERAL CAD COMPARISON: MG MAMM SCREEN 3D MARY CAD, 06/06/2021. US BREAST RIGHT LIMITED, 06/13/2021. MAMMO POST BIOPSY RIGHT, 06/20/2021. MG MAMM DX 3D RT CAD, 01/22/2022. INDICATIONS: Screening mammography Calculator Name NCI Breast Cancer Risk Assessment Tool 5 Year Breast Cancer Risk Not Reported. Lifetime Breast Cancer Risk Not Reported. Personal Breast Cancer No Personal Ovarian Cancer No Treatments None Family Cancers None LOCATION: [facility] BREAST COMPOSITION: Heterogeneously dense,which may obscure small masses. FINDINGS: DIAGNOSTIC CATEGORY 2--BENIGN FINDING: RIGHT BREAST: No significant suspicious finding. Scattered benign-appearing nodules are present. No significant change has occurred. LEFT BREAST: No significant suspicious finding. No significant change has occurred. RECOMMENDATIONS: ROUTINE MAMMOGRAM AND CLINICAL EVALUATION IN 12 MONTHS. PLEASE NOTE: A NORMAL MAMMOGRAM DOES NOT EXCLUDE THE POSSIBILITY OF BREAST CANCER. A CLINICALLY SUSPICIOUS PALPABLE LUMP SHOULD BE BIOPSIED. Dictated by: Loren Molina M.D. on 08/05/2022 at 15:20 Approved by: Loren Molina M.D. on 08/05/2022 at 15:22 Normal [facility] UA RANDOM W/MICROSCOPICon BACTERIA SMALL Abnormal NONE SEEN [facility] Comment on above: Performed By: #### U AMIC ####[facility] [address] [place] [address]Dr. Nish Beauchamp Bilirubin Ql (U) Negative Normal NEGATIVE [facility] Comment on above: Performed By: #### U AMIC ####[facility] [address] [place] [address]Dr. Nish Beauchamp CAST NONE SEEN Normal NONE SEEN [facility] Comment on above: Performed By: #### U AMIC ####[facility] [address] [place] [address]Dr. Nish Beauchamp Clarity (U) CLEAR Normal CLEAR [facility] Comment on above: Performed By: #### U AMIC ####[facility] [address] [place] [address]Dr. Nish Beauchamp Color (U) LT. YELLOW Normal YELLOW [facility] Comment on above: Performed By: #### U AMIC ####[facility] [address] [place] [address]Dr. Nish Beauchamp Crystals LM Nom (Urine sed) NONE SEEN Normal NONE SEEN [facility] Comment on above: Performed By: #### U AMIC ####[facility] [address] [place] [address]Dr. Nish Beauchamp Epithelial cells LM Ql (Urine sed) FEW Abnormal NONE SEEN /RARE [facility] Comment on above: Performed By: #### U AMIC ####[facility] [address] [place] [address]Dr. Nish Beauchamp Glucose Ql (U) Negative Normal NEGATIVE [facility] Comment on above: Performed By: #### U AMIC ####[facility] [address] [place] [address]Dr. Nish Beauchamp Hemoglobin Ql (U) TRACE-INTACT Abnormal NEGATIVE [facility] Comment on above: Performed By: #### U AMIC ####[facility] [address] [place] [address]Dr. Nish Beauchamp Ketones Ql (U) Negative Normal NEGATIVE [facility] Comment on above: Performed By: #### U AMIC ####[facility] [address] [place] [address]Dr. Nish Beauchamp LEUKOCYTES SMALL Abnormal NEGATIVE [facility] Comment on above: Performed By: #### U AMIC ####[facility] [address] [place] [address]Dr. Elsyifeanyi Nito MUCOUS NONE SEEN Normal NONE SEEN [facility] Comment on above: Performed By: #### U AMIC ####[facility] [address] [place] [address]Dr. Nish Beauchamp Nitrite Ql (U) Negative Normal NEGATIVE [facility] Comment on above: Performed By: #### U AMIC ####[facility] [address] [place], [place] [address]Dr. Nish Beauchamp pH (U) 6.0 [pH] Normal 5-9 [facility] Comment on above: Performed By: #### U AMIC ####[facility] [address] [place], [place] [address]Dr. Nish Beauchamp RBC 0-2 Normal 0-2 [facility] Comment on above: Performed By: #### U AMIC ####[facility] [address] [place], [place] [address]Dr. Nish Beauchamp SPEC GRAVITY 1.010 Normal 1.005-<=1.02 5 [facility] Comment on above: Performed By: #### U AMIC ####[facility] [address] [place] [address]Dr. Nish Beauchamp UA PROTEIN Negative Normal NEGATIVE/ TRACE [facility] Comment on above: Performed By: #### U AMIC ####[facility] [address] [place] [address]Dr. Nish Beauchamp Urobilinogen Qn (U) 0.2 {Martha'U}/dL Normal 0.2 - 1. 0 [facility] Comment on above: Performed By: #### U AMIC ####[facility] [address] [place] [phone] Beauchamp WBC 2-5 Abnormal NONE SEEN [facility] Comment on above: Performed By: #### U AMIC ####[facility] [address] [place] [phone]. Nish Beauchamp AMYLASEon 05-30-2022 Amylase [Catalytic activity/Vol] 82 U/L Normal 25-115 [facility] Comment on above: Performed By: #### L IPA, BONG, CMP #### [facility] [address] [place] [address] [address] Nish Beauchamp CBC AUTO DIFFon 05-30-2022 BASO # 0.1 103/ul Normal 0.0-0.1 [facility] Comment on above: Performed By: #### C BC #### [facility] [address] [place] [address] Dr. Nish Beauchamp Basophils/100 WBC (Bld) 1.1 % Normal 0.2-2.0 [facility] Comment on above: Performed By: #### C BC #### [facility] [address] [place] [address] Dr. Nish Beauchamp EO # 0.2 103/ul Normal 0.0-0.7 [facility] Comment on above: Performed By: #### C BC #### [facility] [address] [place] [address] Dr. Nish Beauchamp Eosinophils/100 WBC (Bld) 4.3 % Normal 0.9-7.0 [facility] Comment on above: Performed By: #### C BC #### [facility] [address] [place] [address] Dr. Nish Beauchamp Erythrocyte distribution width (RBC) [Ratio] 12.4 % Normal 11.0-15.0 [facility] Comment on above: Performed By: #### C BC #### [facility] [address] [place] [address] Dr. Nish Beauchamp Hematocrit (Bld) [Volume fraction] 42.5 % Normal 36.0-48.0 [facility] Comment on above: Performed By: #### C BC #### [facility] [address] [place] [address] Dr. Nish Beauchamp Hemoglobin (Bld) [Mass/Vol] 13.7 g/dL Normal 12.0-16.0 [facility] Comment on above: Performed By: #### C BC #### [facility] [address] [place] [address] Dr. Nish Beauchamp IG # 0.02 10e3/ul Normal 0.00-0.03 [facility] Comment on above: Performed By: #### C BC #### [facility] [address] [place] [address] Dr. Nish Beauchamp IG % 0.4 % Normal 0.0-0.5 [facility] Comment on above: Performed By: #### C BC #### [facility] [address] [place] [address] Dr. Nish Beauchamp LYMPH # 1.9 103/ul Normal 1.2-3.8 [facility] Comment on above: Performed By: #### C BC #### [facility] [address] [place] [address] Dr. Nish Beauchamp Lymphocytes/100 WBC (Bld) 35.0 % Normal 20.5-60.0 [facility] Comment on above: Performed By: #### C BC #### [facility] [address] [place] [address] Dr. Nish Beauchamp MANUAL DIFF REQ NO Normal [facility] Comment on above: Performed By: #### C BC #### [facility] [address] [place] [address] Dr. Nish Beauchamp MCH (RBC) [Entitic mass] 30.5 pg Normal 26.7-34.0 [facility] Comment on above: Performed By: #### C BC #### [facility] [address] [place] [address] Dr. Nish Beauchamp MCHC (RBC) [Mass/Vol] 32.2 g/dL Normal 29.9-35.2 [facility] Comment on above: Performed By: #### C BC #### [facility] [address] [place] [address] [address] Nish Beauchamp MCV (RBC) [Entitic vol] 94.7 fL Normal 81.0-99.0 [facility] Comment on above: Performed By: #### C BC #### [facility] [address] [place] [address] [address] Nish Beauchamp MONO # 0.5 103/ul Normal 0.3-0.8 [facility] Comment on above: Performed By: #### C BC #### [facility] [address] [place] [address] [address] Nish Beauchamp Monocytes/100 WBC (Bld) 8.8 % Normal 1.7-12.0 [facility] Comment on above: Performed By: #### C BC #### [facility] [address] [place] [address] Dr. Nish Beauchamp NEUT # 2.7 103/ul Normal 1.4-6.5 [facility] Comment on above: Performed By: #### C BC #### [facility] [address] [place] [address] Dr. Nish Beauchamp Neutrophils/100 WBC (Bld) 50.4 % Normal 43.0-75.0 [facility] Comment on above: Performed By: #### C BC #### [facility] [address] [place] [address] Dr. Nish Beauchamp Platelet mean volume (Bld) [Entitic vol] 10.6 fL Normal 9.5-13.5 [facility] Comment on above: Performed By: #### C BC #### [facility] [address] [place] [address] Dr. Nish Beauchamp PLT 288 103/ul Normal 150-450 [facility] Comment on above: Performed By: #### C BC #### [facility] [address] [place] [address] Dr. Nish Beauchamp RBC 4.49 106/ul Normal 4.20-5.40 [facility] Comment on above: Performed By: #### C BC #### [facility] [address] [place] [address] Dr. Nish Beauchamp WBC 5.3 103/ul Normal 4.0-11.0 [facility] Comment on above: Performed By: #### C BC #### [facility] [address] [place] [address] [address] Nish Beauchamp LIPASEon 05-30-2022 Lipase [Catalytic activity/Vol] 261.0 U/L Normal 73.0-393.0 [facility] Comment on above: Performed By: #### L IPA BONG, CMP #### [facility] [address] [place] [address] Dr. Nish Beauchamp PROF 14(COMP METB)on 022 Albumin [Mass/Vol] 4.0 g/dL Normal 3.4-5.0 [facility] Comment on above: Performed By: #### L IPA BONG, CMP #### [facility] [address] [place] [address] Dr. Nish Beauchamp Albumin/Globulin [Mass ratio] 1.1 {ratio} Normal [facility] Comment on above: Performed By: #### L IPA BONG, CMP #### [facility] [address] [place] [address] Dr. Nish Beauchamp ALP [Catalytic activity/Vol] 75 U/L Normal 46-116 [facility] Comment on above: Performed By: #### L IPA BONG, CMP #### [facility] [address] [place] [address] Dr. Nish Beauchamp ALT [Catalytic activity/Vol] 29 U/L Normal 14-59 [facility] Comment on above: Performed By: #### L IPA, BONG, CMP #### [facility] [address] [place] [address] Dr. Nish Beauchamp Anion gap [Moles/Vol] 11.1 mmol/L Normal [facility] Comment on above: Performed By: #### L IPA, BONG, CMP #### [facility] [address] [place] [address] Dr. Nish Beauchamp AST [Catalytic activity/Vol] 19 U/L Normal 15-37 [facility] Comment on above: Performed By: #### L IPA, BONG, CMP #### [facility] [address] [place] [address] [address] Nish Beauchamp Bilirubin [Mass/Vol] 0.2 mg/dL Normal 0.2-1.0 [facility] Comment on above: Performed By: #### L IPA, BONG, CMP #### [facility] [address] [place] [address] Dr. Nish Beauchamp Calcium [Mass/Vol] 9.2 mg/dL Normal 8.5-10.1 [facility] Comment on above: Performed By: #### L IPA, BONG, CMP #### [facility] [address] [place] [address] Dr. Nish Beauchamp Chloride [Moles/Vol] 105 mmol/L Normal 98-107 [facility] Comment on above: Performed By: #### L IPA BONG, CMP #### [facility] [address] [place] [address] Dr. Nish Beauchamp CO2 [Moles/Vol] 29.0 mmol/L Normal 21.0-32.0 [facility] Comment on above: Performed By: #### L IPA BONG, CMP #### [facility] [address] [place] [address] Dr. Nish Beauchamp Creatinine [Mass/Vol] 0.86 mg/dL Normal 0.55-1.02 [facility] Comment on above: Performed By: #### L IPA BONG, CMP #### [facility] [address] [place] [address] Dr. Nish Beauchamp EGFR-AF ARMENIAN >60 Normal >=60 [facility] Comment on above: Performed By: #### L IPA, BONG, CMP #### [facility] [address] [place] [address] Dr. Nish Beauchamp EGFR-NON AF ARMENIAN >60 Normal >=60 [facility] Comment on above: Performed By: #### L IPA, BONG, CMP #### [facility] [address] [place] [address] Dr. Nish Beauchamp Globulin (S) [Mass/Vol] 3.7 g/dL Normal [facility] Comment on above: Performed By: #### L BONG BACA, CMP #### [facility] [address] [place] [address] [address] Nish Beauchamp Glucose [Mass/Vol] 106 mg/dL Normal 74-106 [facility] Comment on above: Performed By: #### L BONG BACA, CMP #### [facility] [address] [place] [address] [address] Nish Beauchamp Potassium [Moles/Vol] 4.1 mmol/L Normal 3.5-5.1 [facility] Comment on above: Performed By: #### L BONG BACA, CMP #### [facility] [address] [place] [address] [address] Nish Beauchamp Protein [Mass/Vol] 7.7 g/dL Normal 6.4-8.2 [facility] Comment on above: Performed By: #### L BONG BACA, CMP #### [facility] [address] [place] [address] [address] Nish Beauchamp Sodium [Moles/Vol] 141 mmol/L Normal 136-145 [facility] Comment on above: Performed By: #### L BONG BACA, CMP #### [facility] [address] [place] [address] [address] Nish Beauchamp Urea nitrogen [Mass/Vol] 19.0 mg/dL Critically high 7.0-18.0 [facility] Comment on above: Performed By: #### L BONG BACA, CMP #### [facility] [address] [place] [address] [address] Nish Beauchamp Urea nitrogen/Creatinine [Mass ratio] 22.1 mg/mg Normal [facility] Comment on above: Performed By: #### L BONG BACA, CMP #### [facility] [address] [place] [address] [address] Nish Beauchamp UA RANDOM W/MICROSCOPICon BACTERIA SMALL Abnormal NONE SEEN [facility] Comment on above: Performed By: #### U AMIC ####[facility] [address] [place] [address]Dr. Nish Beauchamp Bilirubin Ql (U) Negative Normal NEGATIVE [facility] Comment on above: Performed By: #### U AMIC ####[facility] [address] [place] [address]Dr. Nish Beauchamp CAST NONE SEEN Normal NONE SEEN [facility] Comment on above: Performed By: #### U AMIC ####[facility] [address] [place], [place] [address]Dr. Nish Beauchamp Clarity (U) CLEAR Normal CLEAR [facility] Comment on above: Performed By: #### U AMIC ####[facility] [address] [place], [place] [address]Dr. Nish Beauchamp Color (U) LT. YELLOW Normal YELLOW [facility] Comment on above: Performed By: #### U AMIC ####[facility] [address] [place], [place] [address]Dr. Nish Beauchamp Crystals LM Nom (Urine sed) NONE SEEN Normal NONE SEEN [facility] Comment on above: Performed By: #### U AMIC ####[facility] [address] [place], [place] [address]Dr. Nish Beauchamp Epithelial cells LM Ql (Urine sed) MODERATE Abnormal NONE SEEN /RARE [facility] Comment on above: Performed By: #### U AMIC ####[facility] [address] [place], [place] [address]Dr. Nish Beauchamp Glucose Ql (U) Negative Normal NEGATIVE [facility] Comment on above: Performed By: #### U AMIC ####[facility] [address] [place], [place] [address]Dr. Nish Beauchamp Hemoglobin Ql (U) SMALL Abnormal NEGATIVE [facility] Comment on above: Performed By: #### U AMIC ####[facility] [address] [place], [place] [address]Dr. Nish Beauchamp Ketones Ql (U) Negative Normal NEGATIVE [facility] Comment on above: Performed By: #### U AMIC ####[facility] [address] [place], [place] [address]Dr. Nish Beauchamp LEUKOCYTES TRACE Abnormal NEGATIVE [facility] Comment on above: Performed By: #### U AMIC ####[facility] [address] [place] [id number]. Nish Beauchamp MUCOUS NONE SEEN Normal NONE SEEN [facility] Comment on above: Performed By: #### U AMIC ####[facility] [address] [place] [address]Dr. Nish Beauchamp Nitrite Ql (U) Negative Normal NEGATIVE [facility] Comment on above: Performed By: #### U AMIC ####[facility] [address] [place] [address]Dr. Nish Beauchamp pH (U) 5.5 [pH] Normal 5-9 [facility] Comment on above: Performed By: #### U AMIC ####[facility] [address] [place], [place] [address]Dr. Nish Beauchamp RBC 2-5 Abnormal 0-2 [facility] Comment on above: Performed By: #### U AMIC ####[facility] [address] [place], [place] [address]Dr. Nish Beauchamp SPEC GRAVITY >=1.030 Abnormal 1.005-<=1.02 5 [facility] Comment on above: Performed By: #### U AMIC ####[facility] [address] [place], [place] [address]Dr. Nish Beauchamp UA PROTEIN Negative Normal NEGATIVE/ TRACE [facility] Comment on above: Performed By: #### U AMIC ####[facility] [address] [place], [place] [address]Dr. Nish Beauchamp Urobilinogen Qn (U) 0.2 {Martha'U}/dL Normal 0.2 - 1. 0 [facility] Comment on above: Performed By: #### U AMIC ####[facility] [address] [place], [place] [address]Dr. Nish Beauchamp WBC 2-5 Abnormal NONE SEEN [facility] Comment on above: Performed By: #### U AMIC ####[facility] [address] [place], [place] [address]Dr. Nish Beauchamp CT ABDOMEN WO/W CONon 2021 CT ABDOMEN WO/W CON EXAMINATION: CT ABDOMEN WO/W CON HISTORY: Disease of liver ; follow-up right hepatic lobe lesion COMPARISON: Ultrasound right upper quadrant 05/19/2022 TECHNIQUE: Axial, Coronal, and Sagittal images were created without and with non-ionic intravenous contrast material. Dose reduction techniques were achieved by using automated exposure control and/or adjustment of mA and/or kV according to patient size and/or use of iterative reconstruction technique. FINDINGS: LUNG BASES: No visible pulmonary or pleural disease. LIVER: Slightly rounded hypodensity within anterior right hepatic lobe, 4.1 cm, with similar-appearing 2.0 cm lesion within the posterior medial aspect of the posterior right hepatic lobe. Both of these demonstrates lobular peripheral enhancement and slow filling in of area between arterial, venous, delayed phase sequences. BILIARY: No visible dilatation or calcification. PANCREAS: No lesion, fluid collection, ductal dilatation, or atrophy. SPLEEN: No enlargement or focal lesion. ADRENALS: No mass or enlargement. KIDNEYS: No mass, obstruction, or calcification. BOWEL/MESENTERY: No visible mass, obstruction, or bowel wall thickening. AORTA/VASCULAR: No aneurysm or dissection. RETROPERITONEUM: No mass or adenopathy. ABDOMINAL WALL: No mass or hernia. BONES: No bony lesion or fracture. OTHER: Negative. IMPRESSION: 1. There are 2 separate right hepatic lobe lesions; both favor benign hemangiomas. No suspicious findings. Electronically authenticated by: LOREN MOLINA Date: 2022-05-21 08:55 Normal [facility] US SINGLE QUAD RT UPPERon US SINGLE QUAD RT UPPER EXAMINATION: US SINGLE QUAD RT UPPER HISTORY: Abdominal colic COMPARISON: No relevant comparison available. TECHNIQUE: Transabdominal evaluation of the right upper quadrant. FINDINGS: LIVER: 4.3 x 4.2 x 3.0 cm isoechoic mass within right hepatic lobe slightly compressing the gallbladder. PORTAL VEIN: Duplex Doppler demonstrates normal hepatopetal flow pattern with flow velocity averaging 38 cm/s. GALLBLADDER: No visible gallstones, wall thickening, or pericholecystic free fluid. Negative sonographic Garcia's sign. BILIARY: No abnormal dilation or stones. Common bile duct diameter is within normal limits. PANCREASE: No visible mass, abnormal atrophy, or duct dilation. KIDNEY: No hydronephrosis. No visible mass or stones. Size: 8.8 x 3.6 x 5.3 cm IMPRESSION: 1. There is suggestion of an isoechoic mass within right hepatic lobe causing mass effect on the gallbladder. No acute or suspicious gallbladder findings. CT abdomen with IV contrast using the multiphase liver protocol is recommended for further evaluation. Electronically authenticated by: LOREN MOLINA Date: 2022-05-19 08:42 Normal [facility] MG MAMM DX 3D RT CADon 01-22 MG MAMM DX 3D RT CAD Patient: RADHA DAVIDSON Exam Date: 01/22/2022 : 1970 Gender:F Ordering : ALVIN [facility]Y [facility] Admission #: [id number] Family : Order #: [id number] CLICK HERE TO VIEW EXAM RADIOLOGY REPORT PROCEDURE: MAMMOGRAM DIAGNOSTIC 3D RIGHT CAD COMPARISON: MG MAMM SCREEN MARY W CAD, 05/25/2020. MG MAMM SCREEN 3D MARY CAD, 06/06/2021. INDICATIONS: Abnormal findings on diagnostic imaging of breast Calculator Name NCI Breast Cancer Risk Assessment Tool 5 Year Breast Cancer Risk Not Reported. Lifetime Breast Cancer Risk Not Reported. Personal Breast Cancer No Personal Ovarian Cancer No Treatments None Family Cancers None LOCATION: [facility] BREAST COMPOSITION: Heterogeneously dense,which may obscure small masses. FINDINGS: DIAGNOSTIC CATEGORY 2--BENIGN FINDING: RIGHT BREAST: Stable recently biopsied and benign mass within the upper-outer quadrant. Stable chronic mass with calcifications, likely fibroadenoma, within anterior lower-inner quadrant. No significant change has occurred. RECOMMENDATIONS: ROUTINE MAMMOGRAM AND CLINICAL EVALUATION IN 12 MONTHS. PLEASE NOTE: A NORMAL MAMMOGRAM DOES NOT EXCLUDE THE POSSIBILITY OF BREAST CANCER. A CLINICALLY SUSPICIOUS PALPABLE LUMP SHOULD BE BIOPSIED. Dictated by: Loren Molina M.D. on 01/22/2022 at 10:14 Approved by: Loren Molina M.D. on 01/22/2022 at 10:17 Normal [facility] Vital Signs Date Time Vital Sign Value Performing Clinician Facility 10-13-2023 13:07-0500 Body height 154.94 cm [facility] 10-13-2023 13:07-0500 Body mass index (BMI) [Ratio] 31.7 kg/m2 [facility] 10-13-2023 13:07-0500 Body weight 76.2 kg [facility] 10-13-2023 13:07-0500 Diastolic blood pressure 76 mm[Hg] [facility] 10-13-2023 13:07-0500 Heart rate 87 /min [facility] 10-13-2023 13:07-0500 SaO2% (BldA) [Mass fraction] 98 % [facility] 10-13-2023 13:07-0500 Systolic blood pressure 114 mm[Hg] [facility] 09-30-2023 12:53-0500 Body height 154.9 cm 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 APRN.TOOL TROUBLE SHOOTER Work Phone: [facility] 09-30-2023 12:53-0500 Body temperature 98.6 [degF] 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 APRN.TOOL TROUBLE SHOOTER Work Phone: [facility] 09-30-2023 12:53-0500 Body weight 73.94 kg 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 APRN.TOOL TROUBLE SHOOTER Work Phone: [facility] 09-30-2023 12:53-0500 Diastolic blood pressure 80 mm[Hg] 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 APRN.TOOL TROUBLE SHOOTER Work Phone: [facility] 09-30-2023 12:53-0500 Heart rate 78 /min 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 APRN.TOOL TROUBLE SHOOTER Work Phone: [facility] 09-30-2023 12:53-0500 SaO2% (BldA) [Mass fraction] 100 % 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 APRN.TOOL TROUBLE SHOOTER Work Phone: [facility] 09-30-2023 12:53-0500 Systolic blood pressure 125 mm[Hg] 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 APRN.TOOL TROUBLE SHOOTER Work Phone: [facility] 07-23-2023 09:39-0500 Blood Pressure Location Roxann THACKER [facility] [place] 07-23-2023 09:39-0500 Diastolic blood pressure 88 mm[Hg] Roxann THACKER [facility] [place] 07-23-2023 09:39-0500 Heart rate 88 /min Roxann WHITNEYL [facility] [place] 07-23-2023 09:39-0500 Respiratory rate 16 /min Roxann WHITNEYL [facility] [place] 07-23-2023 09:39-0500 Systolic blood pressure 140 mm[Hg] Roxann WHITNEYL [facility] [place] 07-11-2023 12:15-0500 Body height 154.94 cm Dayanara Thompson Other [employer] [facility] [employer] Other 07-11-2023 12:15-0500 Body mass index (BMI) [Ratio] 32.57 kg/m2 Dayanara Thompson Other [employer] Other 07-11-2023 12:15-0500 Body temperature 98.7 [degF] Dayanara Thompson Other [employer] Other 07-11-2023 12:15-0500 Body weight 78.2 kg Dayanara Thompson Other [employer] Other 07-11-2023 12:15-0500 Respiratory rate 18 /min Dayanara Thompson Other [employer] Other 07-11-2023 12:15-0500 SaO2% (BldA) [Mass fraction] 99 % Dayanara Thompson Other [employer] Other 05-31-2023 14:20-0400 Body height 154.94 cm Rylee Barrientos Other [employer] Other 05-31-2023 14:20-0400 Body mass index (BMI) [Ratio] 31.89 kg/m2 Rylee Barrientos Other [employer] Other 05-31-2023 14:20-0400 Body temperature 97.5 [degF] Rylee Iliana Other [employer] Other 05-31-2023 14:20-0400 Body weight 76.57 kg Rylee Iliana Other [employer] Other 05-31-2023 14:20-0400 Diastolic blood pressure 82 mm[Hg] Rylee Barrientos Other [employer] Other 05-31-2023 14:20-0400 Respiratory rate 18 /min Ryleechely Barrientos Other [employer] Other 05-31-2023 14:20-0400 SaO2% (BldA) [Mass fraction] 99 % Ryleechely Barrientos Other [employer] Other 05-31-2023 14:20-0400 Systolic blood pressure 125 mm[Hg] Ryleechely Barrientos Other [employer] Other Encounters Encounter Date Encounter Type Care Provider Facility Start: 10-13-2023 End: 10-13-2023 ambulatory [facility] Work Phone: Start: 10-13-2023 End: 10-13-2023 Patient encounter procedure [facility] ysician [facility] Work Phone: Start: 10-05-2023 Telephone encounter Ute betancourt MD Work Phone: General Surgery Comment on above: return to work fitne ss form Start: 09-30-2023 End: 10-01-2023 ambulatory MEREDITH BLANCO Facility:[facility] Start: 09-30-2023 End: 09-30-2023 Patient encounter procedure 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.TOOL TROUBLE SHOOTER Work Phone: General Surgery Comment on above: S/P gastrointestinal surgery, follow-up exam (Primary Dx); S/P laparoscopic cholecystectomy Start: 09-23-2023 Telephone encounter Ute betancourt MD Work Phone: General Surgery Comment on above: FMLA Paperwork Start: 09-16-2023 End: 09-16-2023 ambulatory UTE MG Facility:[facility] Start: 09-12-2023 End: 09-13-2023 [facility] Start: 09-10-2023 Encounter for other preprocedural examination MARRY SCHROEDER [facility] Start: 09-10-2023 End: 09-10-2023 [facility] Start: 09-04-2023 End: 09-04-2023 ambulatory UTE MG Facility:[facility] Start: 08-21-2023 End: 08-21-2023 ambulatory MEREDITH BLANCO Facility:[facility] Start: 07-27-2023 Telephone encounter Ute betancourt MD Work Phone: General Surgery Comment on above: Consult Start: 07-23-2023 End: 07-24-2023 ambulatory Roxann THACKER Facility: [place] Start: 07-23-2023 End: 07-23-2023 Patient encounter procedure Roxnan THACKER [facility] [place] Start: 07-20-2023 ambulatory Roxann THACKER [facility] Start: 07-14-2023 End: 07-14-2023 ambulatory Dayanara Thompson Other [employer] Other Start: 07-14-2023 Telephone encounter Dayanara Thompson [facility] Start: 07-11-2023 Office outpatient vi sit 15 minutes Dayanara Thompson [facility] Start: 07-11-2023 End: 07-11-2023 ambulatory DNP Nadege Aly Work Phone: [facility] Work Phone: Start: 07-11-2023 End: 07-11-2023 Departed Referred DNP Nadege Aly Work Phone: [facility] [place] Work Phone: Start: 05-31-2023 End: 05-31-2023 ambulatory Rylee Barrientos Other [employer] Other Start: 05-31-2023 Office outpatient ne w 20 minutes Rylee Barrientos [facility] Start: 10-04-2022 End: 10-05-2022 ambulatory TOOL TROUBLE SHOOTER MARRY AICHHOLZ Facility:[facility] Start: 08-05-2022 End: 08-06-2022 ambulatory TOOL TROUBLE SHOOTER MARRY AICHHOLZ Facility:[facility] Start: 06-17-2022 End: 06-18-2022 ambulatory TOOL TROUBLE SHOOTER MARRY AICHHOLZ Facility:[facility] Start: 05-30-2022 End: 05-31-2022 ambulatory TOOL TROUBLE SHOOTER MARRY AICHHOLZ Facility:[facility] Start: 05-21-2022 End: 05-22-2022 ambulatory TOOL TROUBLE SHOOTER MARRY AICHHOLZ Facility:[facility] Start: 05-19-2022 End: 05-20-2022 ambulatory TOOL TROUBLE SHOOTER MARRY AICHHOLZ Facility:[facility] Start: 01-22-2022 End: 01-23-2022 ambulatory TOOL TROUBLE SHOOTER MARRY AICHHOLZ Facility:[facility] Procedures Date Procedure Procedure Detail Performing Clinician Start: 09-16-2023 Antibody screen UTE TRINH Comment on above: Order Comment: Speci men Type: BLOOD SPECIMEN Ordering Facility: [facility] Address: [address] [place] [address] Performed By: #### T [facility] #### BERTHA [facility] [id number] [address] [place] [address] [place] History of cholecystectomy S/P laparoscopic cholecystectomy 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.TOOL TROUBLE SHOOTER Work Phone: None (qualifier value) Adonis THACKER Plan of Treatment Date Care Activity Detail Author Start: 09-10-2026 Diabetes Screening Diabetes Screenin g [facility] Start: 05-30-2025 Urine microalbumin profile DTaP,Tdap,Td Vaccine (2 - Td or Tdap) [facility] Start: 07-11-2023 Bacteria identified in Urine by Culture Urine Culture [facility] Start: 04-24-2023 Covid-19 Vaccine () Covid-19 Vaccine () [facility] Start: 04-24-2023 Influenza vaccination Influenza Vacc ine (#1) [facility] Start: 08-24-2022 Depression Assessment Depression Ass essment [facility] Start: 2020 Shingrix Vaccine (1 of 2) Shingrix Vaccine (1 of 2) [facility] Start: 2015 Diabetes Screening Diabetes Screenin g [facility] Start: 2015 Lipid panel Lipid Screening [facility] Start: 2015 Screening for malign ant neoplasm of colon [facility] Start: 2010 Screening for malign ant neoplasm of breast Mammogram Screening [facility] Start: 2000 Screening for malign ant neoplasm of cervix HPV Testing [facility] Start: 1991 Screening for malign ant neoplasm of cervix Pap Testing [facility] Start: 1988 Annual PCP Team Chief Maintenance Supervisor suleman Disease Visit Annual PCP Team Chronic Disease Visit [facility] Start: 1988 Hepatitis C screening Hepatitis C Sc ben [facility] Start: 1988 HIV screening HIV Screening [facility] Start: 1988 Spirometry Spirometry [facility] Start: 1976 Pneumococcal vaccination Pneum ococcal Vaccine (1 of 2 - PCV) [facility] Start: 1970 Hepatitis B Vaccine (1 of 3 - 3-dose series) Hepatitis B Vaccine (1 of 3 - 3-dose series) [facility] Adenosine monophosphate.cyclic [Moles/volume] in Serum or Plasma [facility] Comprehensive metabo lic 2000 panel - Serum or Plasma [facility] End: 09-01-2024 Ct abdomen w/contrast material CT LIVER W IVCON Radiology Routine Calculus of gallbladder without cholecystitis without obstruction Liver mass 1 Occurrences starting 08/03/2023 until 09/01/2024 [facility] Work Phone: Comment on above: 1 Occurrences starti ng 08/03/2023 until 09/01/2024 Rheumatoid factor [Units/volume] in Serum or Plasma [facility] Immunizations Immunization Date Immunization Notes Care Provider Ronnie skinner 12-29-2020 SARS-CoV-2 (COVID-19 ) mRNA BNT-162b2 vax Roxann WHITNEYL [facility] 12-08-2020 SARS-CoV-2 (COVID-19 ) mRNA BNT-162b2 vax Roxann NILL [facility] 05-30-2015 tetanus toxoid, reduced diphtheria toxoid, and acellular pertussis vaccine, adsorbed Rylee Barrientos Other [facility] NEGATED: Highlighted row has not occurred!07-23-2023 influenza virus vaccine, unspecified formulation Roxann CUONG [facility] Payers Date Payer Category Payer Self-pay [id number] 2021 Unknown [employer] PPO OOS [id number] 2021-Present [phone] [address] [place] [address] PPO [id number] 1970 Unknown [id number] 1970 Unknown [id number] 1970 Unknown [id number] 1970 Unknown [id number] 1970 Unknown [id number] 1970 Unknown [id number] 1970 Unknown [id number] 1970 Unknown [id number] 1959 Unknown [id number] 1959 Unknown [id number] Unknown [id number] Unknown [id number] Unknown [facility] [id number] Social History Date Type Detail Facility Unknown if ever smoked [employer] Other Start: 09-04-2023 End: 09-30-2023 Sex Assigned At [facility] Start: 02-07-2019 End: 09-10-2023 Tobacco smoking status WYIS Never smoked tobacco (finding) [facility] Start: 1970 Sex Assigned At Female F [facility] Tobacco smoking status Never [facility] Tobacco smoking status WYIS Tobacco smoking consumption unknown [facility] Start: 1970 Sex Assigned At Not on file [facility] Start: 09-10-2023 Tobacco use and exposure Smokeless tobacco non-user [facility] Start: 09-10-2023 End: 09-30-2023 Alcohol intake Ex-drinker (finding) [facility] Start: 09-04-2023 End: 09-30-2023 History of Social function [facility] Functional Status Date Assessment Result Facility 07-23-2023 Functional Status N/A [facility] [place] Clinical Notes 05-31-2023 to 10-05-2023 Telephone Encounter - Marilynn Rene MA - 10/05/2023 4:00 PM ESTTelephone Encounter - Kayce Norton - 10/05/2023 11:30 AM ESTTelephone Encounter - Marilynn Rene MA - 09/30/2023 3:56 PM EST Note Date & Type Note Facility 10-05-2023 Miscellaneous Notes There was not return to work fitness form in the packet. I faxed over the forms to [employer] on 09/30/23. I left a vm on patients phone to let her know and that I can't upload them to her [employer] because she does not have one set up. Marilynn Rene MA Patient called needing a return to work fitness form. Any questions she can be reached at [phone] The form should be sent to [employer], . Please also my chart her a copy. Thank You! documented in this encounter [facility] 09-30-2023 Miscellaneous Notes Employer Forms for Patient/Caregiver Time Off of Work Completed, signed by provider, and returned to below contact. Completed copy scanned in [facility] Date of Surgery: 09/16/23 Estimated RTW date: 10/19/23 Employer: eReceipts. Faxed to the [employer] Disability Date sent to employer: 09/30/23 Received fax confirmation: YES Received FMLA/STD paperwork on 09/23/23 Pending physician signature and completion. Surgeon: Dr. Mg Date of Surgery (if known): 09/16/23 documented in this encounter [facility] 09-30-2023 Note HNO ID: [id number] Author: MEREDITH BLANCO APRN.ALVIN Service: ? Author Type: Nurse Practitioner Type: Progress Notes Filed: 09/30/2023 13:48 Note Text: Assessment Postoperative Visit Date of Surgery: 09/16/2023 Surgery: Laparoscopic cholecystectomy, intraoperative cholangiogram. Post Op Diagnosis: 1. Right upper quadrant biliary colic and cholelithiasis. 2. 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 Gallbladder, cholecystectomy: - Xanthogranulomatous cholecystitis. - Cholelithiasis. Subjective: - tired, feeling well otherwise + mild incisional tenderness - no GI complaints - No food sensitivities Physical examination: BP 125/80 Pulse 78 Temp (Src) 98.6 (Temporal) Ht 5' .984 (1.55m) Wt 163 lb (73.9kg) SpO2 100% BMI 30.81 kg/(m2). AANDO, pleasant, no distress Abdomen: soft, no tenderness or distention Incisions: clean and dry, glue intact. No signs of infection Impression and plan: Stacie Davidson is a 53 year old yo pleasant woman, s/p Laparoscopic cholecystectomy, intraoperative cholangiogram. - doing well from the surgical perspective - recommended continued low fat diet Patient can go back to a regular routine at this time. I have asked the patient to continue weight lifting restrictions up to 10 pounds for a total of 4 weeks. RTW 10/19/23, with no restrictions. Paperwork completed Follow up: LISA Blanco APRN.ALVIN [facility] 09-30-2023 History of Present illness Narrative Assessment Postoperative Visit Date of Surgery: 09/16/2023 Surgery: Laparoscopic cholecystectomy, intraoperative cholangiogram. Post Op Diagnosis: 1. Right upper quadrant biliary colic and cholelithiasis. 2. 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 Gallbladder, cholecystectomy: - Xanthogranulomatous cholecystitis. - Cholelithiasis. Subjective: - tired, feeling well otherwise + mild incisional tenderness - no GI complaints - No food sensitivities Physical examination: BP 125/80 Pulse 78 Temp (Src) 98.6 (Temporal) Ht 5' .984 (1.55m) Wt 163 lb (73.9kg) SpO2 100% BMI 30.81 kg/(m^2). A&O, pleasant, no distress Abdomen: soft, no tenderness or distention Incisions: clean and dry, glue intact. No signs of infection Impression and plan: Stacie Davidson is a 53 year old yo pleasant woman, s/p Laparoscopic cholecystectomy, intraoperative cholangiogram. - doing well from the surgical perspective - recommended continued low fat diet Patient can go back to a regular routine at this time. I have asked the patient to continue weight lifting restrictions up to 10 pounds for a total of 4 weeks. RTW 10/19/23, with no restrictions. Paperwork completed Follow up: LISA Blanco APRN.TOOL TROUBLE SHOOTER documented in this encounter [facility] 09-30-2023 Nurse Note What is the reason for your visit today? Post op follow up Lap cholecystectomy 09/16/23 Who is your referring physician? Dr Thacker Are you having poor oral intake? NO Have you had unintentional weight loss of 15 lbs/7 Kg in the last 3-6 months? NO Bowels: regular Wound: clean & dry Temperature: No Drains: No documented in this encounter [facility] 09-16-2023 Note HNO ID: [id number] Author: JORDY DASILVA DO Service: Anesthesiology Author Type: Resident Type: Anesthesia Procedure Notes Filed: 09/16/2023 08:08 Note Text: Attestation signed by Jordy Dasilva DO at 09/16/2023 8:08 AM I saw and evaluated the patient. Discussed with the FINANCIAL SERVICES PROFESSIONAL/AA/resident and agree with findings and plan as documented in the note. Jordy Dasilva DO September 16, 2023 8:08 AM ANESTHESIOLOGY PROCEDURE NOTE PIV General Information Procedure Start Time/Medication Administration: 09/16/2023 7:47 AM Patient Location: OR Staffing Anesthesiologist: Jordy Dasilva DO Resident: Travon Vargas DO CAA: Andreea Arriaga AA CAA Student: Adriana Sparks AA Student Performed by: KRISTINA student Preparation Sterility Preparation: hand hygiene performed prior to procedure, surgical cap used, mask used, skin prep agent completely dried prior to procedure Site Prep: Chloraprep Procedure Details Indication: need for IV access Needle Size/Type: 18 gauge angiocath Orientation: Right Location: Hand Imaging Guidance Used: No SIGNATURE: Travon Vargas DO PATIENT NAME: Stacie Davidson DATE: September 16, 2023 TIME: 8:04 AM CSN: [id number] [facility] 09-16-2023 Note HNO ID: [id number] Author: JORDY DASILVA DO Service: Anesthesiology Author Type: Resident Type: Anesthesia Procedure Notes Filed: 09/16/2023 08:08 Note Text: Attestation signed by Jordy Dasilva DO at 09/16/2023 8:08 AM I saw and evaluated the patient. Discussed with the FINANCIAL SERVICES PROFESSIONAL/AA/resident and agree with findings and plan as documented in the note. 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, care logistics team leader and patient sedated or unresponsive Staffing Anesthesiologist: Jordy Dasilva DO Resident: Travon Vargas DO CAA: Andreea Arriaga AA CAA Student: Adriana Sparks AA Student Performed by: resident and CAA student Indications and Patient Condition Indications for airway management: anesthesia Preoxygenated: yes anesthesia circuit Patient position: sniffing Method: asleep Final Airway Details Final airway type: endotracheal airway Final Endotracheal Airway: ETT Cuffed: yes Successful intubation technique: direct laryngoscopy Devices used: intubating stylet Endotracheal tube insertion site: oral Blade: Jesse Blade size: #3 Measured from: lips Measurement (cm): 21 Placement verified by: chest auscultation and capnometry Cormack-Lehane Classification: grade IIa - partial view of glottis Number of attempts at approach: 1 Airway not difficult SIGNATURE: Travon Vargas DO PATIENT NAME: Stacie Davidson DATE: September 16, 2023 TIME: 8:02 AM CSN: [id number] [facility] 09-09-2023 History of Past i llness Narrative Problem Noted Date Diagnosed Date Resolved Date MARKY (obstructive sleep apnea) 09/09/2023 09/10/2023 documented as of this encounter (statuses as of 10/01/2023) [facility]01-17-2024 History of Past illness Narrative* Problem Noted Date Diagnosed Date Resolved Date MARKY (obstructive sleep apnea) 09/09/2023 09/10/2023 documented as of this encounter (statuses as of 10/01/2023) [facility]01-17-2024 History of Past illness Narrative* Problem Noted Date Diagnosed Date Resolved Date MARKY (obstructive sleep apnea) 09/09/2023 09/10/2023 documented as of this encounter (statuses as of 10/06/2023) [facility]01-12-2024 NoteHNO ID: [id number] Author: UTE MG MD Service: ? Author Type: Physician Type: Progress Notes Filed: 09/04/2023 13:38 Note Text: Assessment NEW LIVER CONSULT PATIENT NAME: Stacie Davidson REASON FOR CONSULT: Right upper quadrant pain REQUESTING PHYSICIAN: Dr. Roxann Thacker DATE of SERVICE: 09/03/2023 TIME of SERVICE: 8:47 AM PCP: No primary care provider on file. 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 Thacker for right upper quadrant abdominal pain. Patient had a significant attack of acute right upper quadrant discomfort around [facility]. She subsequently underwent imaging that noted cholelithiasis. She was also noted to have a hemangioma. Subsequent CT liver noted a hemangioma in segment 4B/5, with the gallbladder on the hemangioma. She was seen by Dr. Thacker and was subsequently referred to me for consideration of cholecystectomy given the hemangioma. Patient endorses ongoing right upper quadrant discomfort. She notes that her pain is worse with eating especially fatty foods. She has not had any issues similar to this in the past. She also did not know about the diagnosis of hemangioma previously which is also new to her. She is quite healthy. She works at the [employer], no heavy lifting involved. She does not smoke and she does not consume significant amounts of alcohol. She does not have any previous liver issues. She does not have any pertinent family history. Rest of her history is as above and otherwise noncontributory. Referred by Dr. Cuong Arevalo dx: RUQ pain, enlarging hemangioma, cholelithiasis History of: Abdominal pain:Yes Nausea/Vomitting:No Hematemesis: No Bleeding per rectum:No Loss of appetite:No Diarrhea:No Jaundice:No Pruritis:No Pale colored stools: No H/O Cholangitis:No Anemia: No Weight loss:No H/O inflammatory bowel disease:No H/O primary sclerosing cholangitis:No H/O blood transfusion or trauma: No H/O IVDU :No H/O Hepatitis:No H/O Cirrhosis:No Family history of pancreas/liver/biliary cancer:No US RUQ 07/18/2013 July 27, 2023 PAST MEDICAL HISTORY: No past medical history on file. PAST SURGICAL HISTORY: No past surgical history on file. FAMILY HISTORY: No family history on file. SOCIAL HISTORY: Review of Systems: The remainder of the review of systems is negative. PHYSICAL EXAMINATION: BP 148/84 Pulse 80 Ht 154.9 cm (5' 1 ) Wt 76.1 kg (167 lb 12.8 oz) BMI 31.71 kg/m? General appearance: Well appearing, alert, in no acute distress, well-hydrated, well nourished. Skin: Skin color, texture, turgor normal, no suspicious rashes or lesions Abdomen: Normal abdominal exam, Abdomen soft, non-tender. Bowel sounds normal. 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 Thacker for right upper quadrant abdominal pain. Patient had a significant attack of acute right upper quadrant discomfort around giving. She subsequently underwent imaging that noted cholelithiasis. She was also noted to have a hemangioma. Subsequent CT liver noted a hemangioma in segment 4B/5, with the gallbladder on the hemangioma. She was seen by Dr. Thacker and was subsequently referred to me for consideration of cholecystectomy given the hemangioma. Patient endorses ongoing right upper quadrant discomfort. She notes that her pain is worse with eating especially fatty foods. She has not had any issues similar to this in the past. She also did not know about the diagnosis of hemangioma previously which is also new to her. She is quite healthy. She works at the [employer], no heavy lifting involved. She does not smoke and she does not consume significant amounts of alcohol. She does not have any previous liver issues. She does not have any pertinent family history. Rest of her history is as above and otherwise noncontributory. Her physical examination is unremarkable. She is never had any abdominal surgeries. I have reviewed her imaging. Ultrasound notes cholelithiasis. Her CT liver notes a 4 cm hemangioma at the base of her gallbladder. She does appear to have findings suggestive of acute cholecystitis on her CT liver although clinically she does not have symptoms of it. There are no LFTs on file with us. Patient with likely symptomatic cholelithiasis based on symptoms. Confounding factor is a hemangioma at the base of the gallbladder. We have discussed regarding a cholecystectomy. We discussed regarding possible complications. We discussed recovery. Will schedule her for surgery in the near future. Schedule for cholecystectomy Risk (more content not included)...[facility]12-29-2023 NoteHNO ID: [id number] Author: Alem Hernandez RT(R) Service: ? Author Type: Technologist Type: Progress Notes Filed: 08/21/2023 9:39 AM Note Text: Radiology Service Progress Note PATIENT NAME: Stacie Davidson DATE OF SERVICE: August 21, 2023 TIME: 9:39 AM PATIENT IDENTITY VERIFICATION COMPLETED USING TWO (2) IDENTIFIERS: Name and Date of confirmed by patient verbally. FALL SCREENING: Has the patient had 2 falls in the last year or 1 fall with injury or currently using an Ambulatory Assistive Device (Walker, Cane, Wheelchair, Crutches, etc.)? No PATIENT GENDER DATA: Female. status: : No status: NO. PATIENT RELEVANT IMPLANT DATA REVIEWED: Not Applicable RADIOLOGY DEPARTMENT: CT; Exam(s) Completed: Liver PERIPHERAL IV DATA: Site assessment: Clean,Dry and Intact, Site disposition Discontinued SIGNED BY: RT Kwabena(R) August 21, 2023 9:39 [facility]12-29-2023 NoteHNO ID: [id number] Author: Val Thacker RN Service: ? Author Type: Registered Nurse Type: Progress Notes Filed: 08/21/2023 9:49 AM Note Text: Radiology Service Progress Note DATE OF SERVICE: August 21, 2023 TIME: 9:48 AM PATIENT WEIGHT: 165LBS PATIENT IDENTITY VERIFICATION COMPLETED USING TWO (2) STANDARD IDENTIFIERS: Name and Date of confirmed by patient verbally. FALL SCREENING: Has the patient had 2 falls in the last year or 1 fall with injury or currently using an Ambulatory Assistive Device (Walker, Cane, Wheelchair, Crutches, etc.)? No PATIENT GENDER DATA: Female. status: : No status: NO. ALLERGIES: Reviewed and unchanged CONTRAST ALLERGY: No EXAM: CT -CONTRAST INDUCED NEPHROPATHY RISK FACTORS: Not applicable CREATININE: No results found for: CREAT , EGFROTH , EGFRAA P.O.C.T. RESULTS: N/A August 21, 2023 TREATMENT: N/A IV SITE: Ambulatory: A peripheral IV was started in the Left antecubital site with a Angio cath: 20 gauge. IV SITE APPEARANCE: Clean,Dry and Intact SIGNATURE: Val Thacker RN PATIENT NAME: Stacie Davidson DATE: August 21, 2023 TIME: 9:48 [facility]12-12-2023 Miscellaneous Notes* Telephone Encounter - Emerald Gordillo RN - 08/04/2023 11:35 AM EST Call to patient to discuss need for further imaging prior to consult visit. Dr. Mg is recommending CT liver Patient reports having a CT last year and dye caused her a 3 day migraine Denies rash, hives, or shortness of breathe. Patient agreeable to repeat CT w IVCON. Will order pre medication to aid in preventing side effects Provided patient with [facility] appt number to schedule CT Pre medication will be sent to patient pharmacy. Patient to call our office after CT Liver is scheduled to schedule new consult with Dr. Mg. * Telephone Encounter - Emerald Gordillo RN - 07/30/2023 1:18 PM EST Images from the original note were not included. [facility]B Referral Referred by Dr. Cuong Arevalo dx: RUQ pain, enlarging hemangioma, cholelithiasis US RUQ 07/18/2013 * Telephone Encounter - Milagro Ag - 07/27/2023 10:44 AM EST Referral received and scanned into [facility]. Reason for referral hepatic hemangioma, RUQ pain and cholelithiasis [facility] NoteChief Complaint consultation for RUQ pain HPI Staff 53 year old female presents on consultation from [facility] for complaint of RUQ pain. Gilmer does not experience pain or discomfort through out the day but has a dull ache when lying down.Taking Tylenol for discomfort. She was experiencing nausea and vomiting, both have resolved. Was taking ATB during this time for UTI. RUQ US with cholelithiasis. History of Present Illness 53 yo female with h/o asthma, gastric ulcers, depression, fibromyalgia, referred from [facility] for abd pain and cholelithiasis; patient was in ED this past weekend with acute onset of RUQ pain, sharp, some associated nausea, pain constant; improved while in ED; normal labs, US with evidence of small stones and sludge; patient reports over 1 year h/o bloating and loose stools after eating fatty foods, no pain, occasional cramps; had RUQ US 04/2022 that revealed a 4 cm likely hemangioma in gallbladder fossa, compressing gallbladder, no stones or inflammation, and a smaller second hemangioma; she underwent an abd ct scan for further evaluation, and lesions were consistent with hemangiomas; recentUS revealed the gallbladder fossa hemangioma had increased in size to 6.5 cm; gallbladder not thickened, no ductal dilation; no free fluid; pain has improved, still mild ache in RUQ; no h/o jaundice or acholic stools; no previous abd operations; no asa or NSAID use, no tobacco use. fmhx of pancreatic cancer in patient's father, no fmhx of IBD. Review of Systems PHQ Score Initial Depression Screen Score: 0 SCORE ROS - Provider Constitutional: no fever, no sweats, no weight loss. Eyes: yes glasses, no blurred vision, no visual loss. ENMT: no dentures, no hoarseness, no swallowing difficulties, no hearing loss, no ear infection(s),no nose bleeds. Cardiovascular: normal blood pressure, no chest pain, regular heartbeat, no heart murmur. Respiratory: no shortness of breath, no cough, no asthma, no wheezing. Gastrointestinal: no nausea, no vomiting, no diarrhea, no constipation, no blood in stool, no change in bowel habits, yes abdominal pain, no hepatitis. Genitourinary: no kidney stones, no urine infection, no dysuria. Musculoskeletal: no pain, no weakness. Skin: no changing moles, no rash, no skin lumps. Neurologic: no seizures, no epilepsy, no headache. Psychiatric: no emotional or psychiatric problem. Heme/Lymph: no bleeding problems, no anemia, no blood clots, no transfusions. Allergy/Immunologic: no swollen lymph nodes/glands, no IV drug abuse. Other: Additional ROS info: Except as noted in the above Review of Systems and in the History of Present Illness, all other systems have been reviewed and are negative or noncontributory. Physical Exam Vitals & Measurements HR: 88(Peripheral) RR: 16 BP: 140/88 HT: 61 in HT: 154.9 cm WT: 76.3 kg WT: 167.86 lb BMI: 31.8 HEENT: normal conjunctiva, sclera clear, no scleral icterus, EOM intact, PERRLA, oral mucosa moist without lesions. Neck: trachea midline, no mass, symmetric, no thyromegaly or nodules, no adenopathy Respiratory: lungs CTA, respirations non labored. Cardiovascular: regular rate and rhythm, no murmur, no pedal edema or varicosities. Gastrointestinal: obese, soft, non distended, mild tenderness, RUQ no masses, no palpable hernias, diastasis recti no, no hepatosplenomegaly; normal bs Lymphatic: no cervical adenopathy, no supraclavicular adenopathy. Musculoskeletal: normal gait, digits and nails without infection, nodes, cyanosis, clubbing. Skin: no rashes, no lesions, no ulcers, no subcutaneous nodules, induration. Psychiatric/Neuro: oriented to time, place, person, judgement normal, affect appropriate for age, insight intact, no focal deficits. Tests: labs reviewed, x-rays reviewed, review of old records completed , Assessment/Plan 1. Hepatic hemangioma (D18.03: Hemangioma of intra-abdominal structures) large hemangioma in gallbladder fossa compressing gallbladder, increase in size over 2 cm over past14 months; likely contributing or causing symptoms; will require treatment regardless due to possible gallbladder disease; recommend evaluation/treatment by hepatobiliary surgeon, patient requests [facility]; will send records; call with problems/questions. Ordered: [facility] External Ambulatory Referral 2. Right upper quadrant abdominal pain (R10.11: Right upper quadrant pain) see # 1 Ordered: [facility] External Ambulatory Referral 3. Cholelithiasis (K80.20: Calculus of gallbladder without cholecystitis without obstruction) see # 1 Ordered: [facility] External Ambulatory Referral 4. BMI 31.0-31.9,adult (Z68.31: Body mass index [BMI] 31.0-31.9, adult) recommend low fat diet and exercise Follow-up No qualifying data available Problem List/Past Medical History Ongoing Asthma BMI 31.0-31.9,adult Cholelithiasis Depression Fibromyalgia Hepatic hemangioma History of gastric ulcer Obesity Right upper quadrant abdominal pain Hi (more content not included)...[facility]: Result Comment: Electronically Signed By: CUONG ARGUETA, Roxann Colunga\Date and Time Signed: 07/23/23 17:10 [id number] Evaluation note* Encounter Date Diagnosis Assessment Notes Treatment Notes Treatment Clinical Notes Jun, Dysuria (ICD-10 - R30.0) Jun, Acute cystitis with hematuria (ICD-10 - N30.01) Discussed diagnosis and dipstick findings with patient. Will treat patient for UTI. Instructed patient to take antibiotic as prescribed, take with food, complete entire course of therapy even if feeling better. Allergies and recent antibiotic use were reviewed with patient. Advised patient culture was sent today and we will call with her results in 2-5 days. Patient instructed to push fluids. May take Pyridium for discomfort as prescribed. Patient symptoms should improve in the next 48 hours, if symptoms persist follow up with PCP or UC. Immediate eval by ER if back or flank pain, fever, chills, N/V, or any other concerning symptoms arise. Patient verbalizes understanding and is agreeable to treatment plan. [employer] Other 10-08-2023 Evaluation note* Encounter Date Diagnosis Assessment Notes Treatment Notes Treatment Clinical Notes May, Cellulitis of left lower leg (ICD-10 - L03.116) Discussed with patient exam is consistent with secondary cellulitis related to insect bite. We will treat with Augmentin. Finish entire course. Elevation and cool compresses encouraged. May use ibuprofen or Tylenol for discomfort. Continue to monitor area closely. Follow-up with PCP if not gradually improving over the next 4 to 5 days, sooner if any rapidly spreading erythema, warmth, fever. Patient verbalized understanding of treatment plan. Merged With [facility] [employer] Other Evaluation + [facility] [place] Evaluation noteNo InformationNortExcela [facility] [employer] Other Evaluation noteNo assessment information available [facility] Work Phone: Evaluation note* Diagnosis Calculus of gallbladder without cholecystitis without obstruction- Primary Calculus of gallbladder without mention of cholecystitis or obstruction Liver mass Unspecified disorder of liver documented in this encounter [facility] note* Diagnosis S/P gastrointestinal surgery, follow-up exam- Primary Follow-up examination, following other surgery S/P laparoscopic cholecystectomy Other postprocedural status documented in this encounter [facility] note* Diagnosis Onset Date Resolution Status Anemia due to blood loss acu te Antral ulcer acute Asthma acute Family history of Yvonne thyroiditis acute Family history of rheumatoid arthritis acute Fatigue acute Fibromyalgia acute GERD (gastroesophageal reflux disease) acute Hemangioma acute Multiple joint complaints ac primo Screening for lipid disorders acute [facility] Work Phone: Hisxtyn general Narrative - Reported* Type Description Date Medical History asthma Medical History acid reflux Medical History anxiety Medical History depression Surgical History No Surgical history information Hospitalization History [facility] Hospitalization History blood transfusions and b leeding ulcers Merged With [facility] [employer] Other Hiscajn general Narrative - Reported* Type Description Date Medical History asthma Medical History acid reflux Medical History anxiety Medical History depression Surgical History No know Surgical history Hospitalization History [facility] Hospitalization History blood transfusions and b leeding ulcers Merged With [facility] [employer] Other Hospital course Narrative No data available for this section [facility] [place] [facility] Discharge instructions No data available for this section [facility] [place] Progress note No data available for this section [facility] [place] Reason for referral (narrative) Referred by: CUONG ARGUETA, Roxann Pride [facility] [place] Summary Purpose Family History Relationship Condition Age at Onset Recorded Date/T dorcas Not Specified Coronary artery disease Unknown Relationship Condition Age at Onset Recorded Date/T dorcas Not Specified Coronary artery disease Unknown Bruises easily Unknown father Family history of other condition Unknown Diabetes mellitus Unknown Malignant neoplasm Unknown grandparent Unknown Not Specified Hypertension Unknown Family history of mental disorder Unknown sister Malignant neoplasm of breast Unknown Advance Directives Advance Directive Response Recorded Date/ Time Advance Directives No December 10, 2 018 10:10am Reason for Referral Specialty Diagnoses / Procedures Referred By Contac t Referred To Contact CT IMAGING Diagnoses Calculus of gallbladder without cholecystitis without obstruction Liver mass Procedures CT LIVER W IVCON CT ABDOMEN W/CONTRAST 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, 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.TOOL TROUBLE [employer]ER [address] [place] [address] [facility] [place] [address] Referral ID Status Reason Start Date Expiration Date Visits Requested Visits Authorized [id number] Authorized Auto-Generat ed Referral 3 08/23/2023 1 1 Chief Complaint and Reason for Visit Chief Complaint Establish Reason for Visit Anemia due to blood loss Antral ulcer Asthma Family history of Yvonne thyroiditis Family history of rheumatoid arthritis Fatigue Fibromyalgia GERD (gastroesophageal reflux disease) Hemangioma Multiple joint complaints Screening for lipid disorders Additional Source Comments INFORMATION SOURCE (unrecogn ized section and content) DATE CREATED AUTHOR 10/11/2022 [facility] DATE CREATED AUTHOR AUTHOR'S ORGANIZ ATION 09/20/2023 [facility] DATE CREATED AUTHOR AUTHOR'S ORGANIZ ATION 09/29/2023 [facility] DATE CREATED AUTHOR AUTHOR'S ORGANIZ ATION 10/07/2023 [facility] DATE CREATED AUTHOR AUTHOR'S ORGANIZ ATION 10/08/2023 [facility] REASON FOR VISIT (unrecogniz ed section and content) Reason Comments Consult Reason Comments Post Op Follow Up Lap cholecystectomy 09/16/23 Reason Comments FMLA Paperwork Reason Comments return to work fitness form Care Teams (unrecognized sec tion and content) Team Status: Active Member Role Status Dates Nadege Aly DNP Primary Care Provider Active Team Status: Inactive Member Role Status Dates Nadege Aly DNP Primary Care Provider Active Dayanara Thompson APRN Attending Provider Active Meat Grader Relationship Specialty Start Date End Date [facility] [address] [place] [address] PCP - General Family Medicine 09/09/23 Meat Grader Relationship Specialty Start Date End [facility] [address] [place] [address] PCP - [facility] 09/09/23 Meat Grader Relationship Specialty Start Date End Date Marry SchroederALVIN [address] [place] [address] PCP - [facility] 09/09/23 Team Status: Active Member Role Status Dates Nadege Lawson APRN ENZYME CHEMIST-C Primary Care Provider Active Team Status: Inactive Member Role Status Dates Nadege Lawson APRN ENZYME CHEMIST-C Primary Care Provider, Attending Provider Active Start: October 13, 2023 End: October 13, 2023 Goals (unrecognized section and content) Goals may be documented in a n alternate section Source Comments (unrecognize d section and content) In the event this informatio n is protected by the Federal Confidentiality of Alcohol and Drug Abuse Patient Records regulations: The Federal rules restrict any use of the information to criminally investigate or prosecute any alcohol or drug abuse patient.[facility] HospitalIn the event this information is protected by the Federal Confidentiality of Alcohol and Drug Abuse Patient Records regulations: The Federal rules restrict any use of the information to criminally investigate or prosecute any alcohol or drug abuse patient.[facility] HospitalIn the event this information is protected by the Federal Confidentiality of Alcohol and Drug Abuse Patient Records regulations: The Federal rules restrict any use of the information to criminally investigate or prosecute any alcohol or drug abuse patient.[facility] HospitalIn the event this information is protected by the Federal Confidentiality of Alcohol and Drug Abuse Patient Records regulations: The Federal rules restrict any use of the information to criminally investigate or prosecute any alcohol or drug abuse patient.[facility] FOR RECORDS PERTAINING TO PATIENTS WHO ARE OR HAVE BEEN ENROLLED IN A CHEMICAL DEPENDENCY/SUBSTANCEABUSE PROGRAM, SOME INFORMATION MAY BE OMITTED. This clinical summary was aggregated from multiple sources. Caution should be exercised in using it in the provision of clinical care. This summary normalizes information from multiple sources, and as a consequence, information in this document may materially change the coding, format and clinical context of patient data. In addition, data may be omitted in some cases. CLINICAL DECISIONS SHOULD BE BASED ON THE PRIMARY CLINICAL RECORDS. [facility] [employer] [facility]. provides no warranty or guarantee of the accuracy or completeness of information in this document.
[2023-10-16 12:08] LABS: Percent Iron Saturation 46.8 %
[2023-10-16 12:10] LABS: Basophils Absolute Auto 0.1 10^3/uL (0.0-0.1); Eosinophils Absolute Auto 0.3 10^3/uL (0.0-0.7); Eosinophils Percent Auto 7.9 % (0.9-7.0); Hematocrit 40.4 % (36.0-48.0); Hemoglobin 13.4 g/dL (12.0-16.0); Lymphocytes Absolute Auto 1.6 10^3/uL (1.2-3.8); Lymphocytes Percent Auto 45.6 % (20.5-60.0); Mean Corpuscular HGB Conc 33.2 g/dL (29.9-35.2); Mean Corpuscular Hemoglobin 30.7 pg (26.7-34.0); Mean Corpuscular Volume 92.4 fL (81.0-99.0); Mean Platelet Volume 10.4 fL (9.5-13.5); Monocytes Absolute Auto 0.3 10^3/uL (0.3-0.8); Monocytes Percent Auto 9.6 % (1.7-12.0); Neutrophils Absolute Auto 1.2 10^3/uL (1.4-6.5); Neutrophils Percent Auto 34.9 % (43.0-75.0); Platelet Count 301 10^3/uL (150-450); Red Blood Count 4.37 10^6/uL (4.20-5.40); Red Cell Distribution Width 11.7 % (11.0-15.0); White Blood Count 3.4 10^3/uL (4.0-11.0)
[2023-10-16 12:16] LABS: Alanine Aminotransferase 56 U/L (14-59); Alkaline Phosphatase 123 U/L (46-116); Anion Gap 14.7; Aspartate Amino Transferase 29 U/L (15-37); Bilirubin Total 0.6 mg/dL (0.2-1.0); C Reactive Protein <0.50 mg/dL (<=0.50); Calcium 9.6 mg/dL (8.5-10.1); Carbon Dioxide 28.5 mmol/L (21.0-32.0); Chloride 98 mmol/L (98-107); Chol HDL Ratio 2.2; Cholesterol 208 mg/dL (<=200); Estimated GFR (African America >60 (>=60); Estimated GFR (Non-African Ame >60 (>=60); Globulin 4.2 g/dL; Glucose 92 mg/dL (74-106); HDL Cholesterol 96 mg/dL (40-60); Potassium 4.2 mmol/L (3.5-5.1); Sodium 137 mmol/L (136-145); TSH W/ REFLEX FT4 0.686 uIU/mL (0.358-3.740); Total Protein 8.2 g/dL (6.4-8.2); Triglycerides 66 mg/dL (<=150); Uric Acid 4.1 mg/dL (2.6-6.0); VLDL CHOLESTEROL 13.2 mg/dL
[2023-10-16 12:29] LABS: Erythrocyte Sedimentation Rate 28 mm/hr (<=30)
[2023-10-17 06:09] LABS: Antistreptolysin O Ab 225.8 IU/mL (0.0-200.0); Rheumatoid Factor (RF) 10.4 IU/mL (<14.0)
[2023-10-17 15:07] LABS: Anti-CCP Ab, IgG/IgA 6 units (0-19)
[2023-10-19 16:09] LABS: Antinuclear Antibodies, IFA Positive (.)
[2023-10-19 17:08] LABS: Thyroglobulin Antibody <1.0 IU/mL (0.0-0.9); Thyroid Peroxidase (TPO) Ab <9 IU/mL (0-34)
== END 2023-10-16 10:23 | disposition home or self-care (01) ==
LOC: MAMMO 10:22
PROVIDERS: PCP Nurse Practitioner Family; Visit Provider Nurse Practitioner Family
DX: Z12.31 Encounter for screening mammogram for malignant neoplasm of breast (principal); M25.9 Joint disorder, unspecified; Z83.49 Family history of other endocrine, nutritional and metabolic diseases; Z82.61 Family history of arthritis; R53.83 Other fatigue; M79.7 Fibromyalgia; Z13.220 Encounter for screening for lipoid disorders; D50.0 Iron deficiency anemia secondary to blood loss (chronic)
CPT/HCPCS: 36415; 77063; 77067; 80053; 80061; 83540; 83550; 84443; 84550; 85025; 85652; 86038; 86060; 86140; 86200; 86376; 86431; 86800

== ENCOUNTER 2024-03-11 10:12 | Outpatient (OUT) | payer BC, SELFPAY ==
--- NOTE | 2024-03-11 10:15 | US_ITS ---
[address] [address] Patient Name: DEANGELO DAVIDSON MRN: [id number] date: 1970 Sex: F Assigned Patient Location: Current Patient Location: Accession/Order Number: [id number] Exam Date: 03/11/2024 10:23 Report Date: 03/14/2024 07:47 At the request of: JOANN IRVIN Procedure: US renal bladder EXAMINATION: US renal bladder HISTORY: Flank Pain R10.9 COMPARISON: No relevant comparison available. TECHNIQUE: Ultrasound examination was performed of the bladder. FINDINGS: Right Kidney: Normal in size, contour and echotexture. 3 mm echogenic focus, nonobstructing nephrolith. The cortex measures 1.3 cm. No solid cortical mass or hydronephrosis. Height: 6.14 cm Length: 11.17 cm Width: 4.52 cm Left Kidney: Normal in size, contour and echotexture. The cortex measures 1.4 cm. No solid cortical mass or hydronephrosis Height: 5.33 cm Length: 10.19 cm Width: 5.47 cm Urinary bladder wall measures 2 mm, normal. Prevoid volume 253. Post void volume 6 mL Ureteral jets: Visualized bilaterally US/US renal bladder IMPRESSION: No acute abnormality Electronically authenticated by: DEWEY DEWEY Date: 03/14/2024 07:47
--- OUTSIDE RECORDS SUMMARY | 2024-03-11 10:34 | XMS_ITS | CCD ---
Author Organization [facility] Care Team Providers Care Television Receiver Analyzer Name Role Phone AICHHOLZ, TRANSFER ENGINEER MARRY Primary Care Unavailable AICHHOLZ, TRANSFER ENGINEER MARRY Consulting Unavailable AICHHOLZ, TRANSFER ENGINEER MARRY Attending Unavailable AICHHOLZ, TRANSFER ENGINEER MARRY Admitting Unavailable DR LOREN WHEATLEY Consulting Unavailable AICHHOLZ, TRANSFER ENGINEER MARRY Primary Care Unavailable AICHHOLZ, TRANSFER ENGINEER MARRY Admitting Unavailable AICHHOLZ, TRANSFER ENGINEER MARRY Attending Unavailable AICHHOLZ, TRANSFER ENGINEER MARRY Consulting Unavailable AICHHOLZ, TRANSFER ENGINEER MARRY Attending Unavailable AICHHOLZ, TRANSFER ENGINEER MARRY Admitting Unavailable AICHHOLZ, TRANSFER ENGINEER MARRY Primary Care Unavailable AICHHOLZ, TRANSFER ENGINEER MARRY Consulting Unavailable AICHHOLZ, TRANSFER ENGINEER MARRY Attending Unavailable AICHHOLZ, TRANSFER ENGINEER MARRY Admitting Unavailable AICHHOLZ, TRANSFER ENGINEER MARRY Primary Care Unavailable AICHHOLZ, TRANSFER ENGINEER MARRY Consulting Unavailable DR LOREN WHEATLEY Consulting Unavailable AICHHOLZ, TRANSFER ENGINEER MARRY Consulting Unavailable AICHHOLZ, TRANSFER ENGINEER MARRY Admitting Unavailable AICHHOLZ, TRANSFER ENGINEER MARRY Primary Care Unavailable AICHHOLZ, TRANSFER ENGINEER MARRY Attending Unavailable AICHHOLZ, TRANSFER ENGINEER MARRY Primary Care Unavailable AICHHOLZ, TRANSFER ENGINEER MARRY Consulting Unavailable AICHHOLZ, TRANSFER ENGINEER MARRY Attending Unavailable AICHHOLZ, TRANSFER ENGINEER MARRY Admitting Unavailable DR LOREN WHEATLEY Consulting Unavailable AICHHOLZ, TRANSFER ENGINEER MARRY Primary Care Unavailable AICHHOLZ, TRANSFER ENGINEER MARRY Consulting Unavailable AICHHOLZ, TRANSFER ENGINEER MARRY Attending Unavailable AICHHOLZ, TRANSFER ENGINEER MARRY Admitting Unavailable DR LOREN WHEATLEY Consulting Unavailable Rylee Barrientos Unavailable Dayanara Thompson Unavailable ALLAN Aly Primary Care Provider LAUREN Thompson Attending Provider [phone] MARRY SCHROEDER Primary Care Physician [phone] Unavailable Primary Care Provider Unavailtwin tse HART, TOMS Attending Unavailable HART, TOMS Admitting Unavailable Roxann HUTCHINS Attending Unavailable Aichholz Marry ESQUIVEL Primary Care Provider [phone] Dayanara Thompson Attending Unavailable Dayanara Thompson Admitting Unavailable KapNadege russell Primary Care Unavailable Rohrbacher ADMIN ASST, Nadege Unavailable Unavaila ble Rohrbacher ADMIN ASST, Nadege Primary Care Provider [phone] AICHHOLZ, MARRY MARIAA Primary Care Unavailable AICHHOLZ, MARRY MARIAA Primary Care Unavailable HART, TOMS Referring Unavailable AICHHOLZ, MARRY MARIAA Primary Care Unavailable HART, TOMS Referring Unavailable HART, TOMS Attending Unavailable HART, TOMS Referring Unavailable BLANCA, MEREDITH Referring Unavailable LAINEY, TIM Attending Unavailable LAINEY, TIM Referring Unavailable ROHRBACHER, NADEGE Primary Care Unavailable LAINEY, TMI Referring Unavailable ROHRBACHER, NADEGE Primary Care Unavailable LAINEY, TIM Referring Unavailable ROHRBACHER, NADEGE Primary Care Unavailable LAINEY, TIM Attending Unavailable AICHHOLZ, MARRY MARIAA Primary Care Unavailable AICHHOLZ, MARRY MARIAA Referring Unavailable AICHHOLZ, MARRY MARIAA Primary Care Unavailable BLANCA, MEREDITH Attending Unavailable HART, TOMS Referring Unavailable LAUREN Lawson Primary Care Provider LAUREN Lawson Attending Provider [phone] Allergies Allergy Classification Reported Allergen(s) Allergy Type Date of Onset Reaction(s) Facility Dihydrofolate Reductase Inhibitors (antibiotic) (1 source) Trimethoprim Drug Allergy 01-27-20 24 sick to stomach [facility] Sulfonamides (antibiotic) (3 sources) Sulfonamides (Antibiotic) Drug Allergy 07-18-20 23 Rash [facility] Tetracyclines (antibiotic) (1 source) Tetracyclines Drug Allergy 01-27-20 24 Itching, rash [facility] (2 sources) Tetracycline; Translations: [tetracycline] Drug Allergy 06-17-[address] [facility] Repository (3 sources) Sulfamethoxazole / Trimethoprim Drug Allergy sick to stomach [facility] Other (3 sources) Sulfonamides (Antibiotic) Propensity to adverse reactions hives [facility] Other (12 sources) Tetracyclines; Translations: [TETRACYCLINES] Propensity to adverse reactions 12-11-19 [facility] (2 sources) Sulfonamides (Antibiotic); Translations: [sulfa drugs] Propensity to adverse reactions to drug Eruption of skin (disorder) [facility] (1 source) Tetracycline; Translations: [tetracycline] Drug Allergy Dyspnea (finding) [facility] (16 sources) Sulfonamides (Antibiotic); Translations: [SULFA (SULFONAMIDE ANTIBIOTICS)] Propensity to adverse reactions to drug (disorder) 07-11-20 Rash [facility] Other [place] [facility] (8 sources) Tetracycline (class of antibiotic) Drug Allergy 12-11-19 Itching, Rash, Shortness of Breath [facility] (7 sources) Sulfamethoxazole Drug Allergy 07-11-20 sick to [facility] Repository (1 source) Tetracyclines Drug allergy (disorder) 07-11-20 [facility] Repository (7 sources) Trimethoprim Drug Allergy 07-11-20 sick to [facility] Repository Medications Current Medications Medication Drug Class(es) Dates Sig (Normalized) Sig (Original) albuterol 0.83 mg/ml inhalation solution (11 sources) beta2-Adrenergic Agonist Start: 09-10-2023 take 3 [...] breath. Inhale by nebulizer over 5-15 minutes ascorbic acid 500 mg oral capsule (7 sources) Vitamin C Start: 4 Ascorbic Acid (Vitamin C) Active MG PO October 13, 2023 1:00am celecoxib 100 mg oral capsule (4 sources) Nonsteroidal Anti-inflammatory Drug Start: 4 take 100 mg by mouth twice daily Celecoxib Active 100 MG PO Twice daily January 27, 2024 12:00am Start: 01-15-2024 take 1 capsule by mo ut every twelve hours as needed celecoxib (CELEBREX) 100 mg capsule Take 1 capsule by mouth two times a day as needed. 60 capsule 2 01/15/2024 Active cephalexin 500 mg oral capsule (2 sources) Cephalosporin Antibacterial Start: 07-11-2023 take 1 capsule by mouth every eight hours Cephalexin 500 MG 1 capsule Orally every 8 hrs for 7 Jun, Active cetirizine hydrochloride 10 mg oral tablet (7 sources) Histamine-1 Receptor Antagonist Start: 01-13-2020 cetirizine (ZYRTEC) 10 mg tablet Take by mouth every 12 hours. 0 01/13/2020 Active Start: 01-13-2020 take 1 tablet by alma every twelve hours Cetirizine HCl 10 MG 1 tablet Orally bid for 5 days December, Active citalopram 40 mg oral tablet (20 sources) Serotonin Reuptake Inhibitor Start: 12-10-2017 End: 10-13-2023 take 1 tablet by mouth once daily Citalopram (Celexa) 40 mg tablet Active 40 MG PO Daily 90 90 October 13, 2023 2:59pm Comment on above: Take 40 mg by mouth. cycloSPORINE 0.5 mg/ml ophthalmic suspension (2 sources) Calcineurin Inhibitor Immunosuppressant Start: 03-07-2024 take 1 drop(s) into the eye(s) twice daily Cyclosporine (Restasis) 0.05 % dropperette Active 1 DROPS OPHTHALMIC Twice daily March 07, 2024 12:00am diphenhydrAMINE hydrochloride 25 mg oral capsule (9 sources) Histamine-1 Receptor Antagonist Start: 08-04-2023 diphenhydrAMINE (BENADRYL) 25 mg capsule Take both capsules [address] Scan 2 capsule 0 08/04/2023 Active Comment on above: Take both capsules [address] Scan ELDERBERRY FRUIT (7 sources) Start: 10-13-2023 Elderberry Fruit Active MG PO October 13, 2023 1:00am Start: 10-13-2023 Elderberry Fru it Active MG PO October 13, 2023 12:00am iv contrast (will be provided with radiology test) (9 sources) Start: 08-03-2023 iv contrast (will be [...] the CT contrast administration guidelines link. Lactobacillus Combination No.9 (Adult 50 Plus Probiotic) 4 billion cell capsule (7 sources) Start: 10-13-2023 take 4 capsules by mouth once daily Lactobacillus Combination No.9 (Adult 50 Plus Probiotic) 4 billion cell capsule Active 4000 MMU CELLS PO Daily October 13, 2023 1:00am administer with a meal Start: 10-13-2023 take 4 capsules by m outh once daily Lactobacillus Combination No.9 (Adult 50 Plus Probiotic) 4 billion cell capsule Active 4000 MMU CELLS PO Daily October 13, 2023 12:00am administer with a meal montelukast 10 mg oral tablet (3 sources) Leukotriene Receptor Antagonist Start: 01-27-2024 take 1 tablet by mouth once daily Montelukast (Singulair) 10 mg tablet Active 10 MG PO Daily 90 90 January 27, 2024 12:00am nitrofurantoin, macrocrystals 25 mg / nitrofurantoin, monohydrate 75 mg oral capsule (2 sources) Nitrofuran Antibacterial Start: 03-07-2024 take 1 capsule by mouth twice daily at mealtime Nitrofurantoin Monohyd/M-Cryst (Macrobid) 100 mg capsule Active 100 MG PO Twice daily 10 5 March 07, 2024 12:00am must administer with a meal/food omeprazole 40 mg delayed release oral capsule (20 sources) Proton Pump Inhibitor Start: 02-09-2019 take 40 mg by mouth once daily Omeprazole Active 40 MG PO Daily 56 56 February 09, 2019 12:00am Comment on above: Take 40 mg by mouth. phenazopyridine hydrochloride 200 mg oral tablet (2 sources) Start: 07-11-2023 take 1 tablet by mouth every eight hours Pyridium 200 MG 1 tablet after meals Orally Three times a day for 2 day(s) Jun, Active traZODone hydrochloride 50 mg oral tablet (16 sources) Serotonin Reuptake Inhibitor Start: 12-15-2023 End: 01-12-2024 take 50 mg by mouth once daily at bedtime Trazodone Active 50 MG PO Daily at bedtime 90 90 January 12, 2024 8:58am Completed/Discontinued Medications Medication Drug Class(es) Dates Sig (Normalized) Sig (Original) amoxicillin 875 mg / clavulanate 125 mg oral tablet (3 sources) Penicillin-class Antibacterial Start: 05-31-2023 take 1 tablet by mouth every twelve hours Amoxicillin-Pot Clavulanate 875-125 MG 1 tablet Orally every 12 hrs for 7 days May, Not-Taking azithromycin 500 mg oral tablet (8 sources) Macrolide Antimicrobial Start: 02-07-2019 End: 02-09-2019 take 500 mg by mouth once daily Azithromycin Discontinued 500 MG PO Daily February 07, 2019 12:00am February 09, 2019 12:26pm 24 hr buPROPion hydrochloride 300 mg extended release oral tablet (20 sources) Aminoketone Start: 01-12-2024 End: 01-12-2024 take 150 mg by mouth once daily in the morning Bupropion Hcl Discontinued 150 MG PO Every morning January 12, 2024 8:32am January 12, 2024 9:03am Start: 01-12-2024 take 150 mg by mouth once daily in the morning Bupropion Hcl Active 150 MG PO Every morning January 12, 2024 12:00am Start: 12-23-2023 End: 01-12-2024 take 300 mg by mouth once daily in the morning Bupropion Hcl Discontinued 300 MG PO Every morning December 23, 2023 1:45pm December 23, 2023 2:12pm Start: 10-13-2023 End: 12-23-2023 take 150 mg by mouth once daily Bupropion Hcl Disconti nued 150 MG PO Daily October 13, 2023 2:58pm December 23, 2023 1:43pm Start: 07-23-2023 take 1 tablet by alma [...] a day Active Comment on above: Wellbutrin Cranberry (8 sources) Non-Standardized Food Allergenic Extract, Non-Standardized Plant Allergenic Extract Start: 12-10-2017 End: 10-13-2023 take 400 mg by mouth once daily Cranberry Discontinued 400 MG PO Daily December 10, 2017 12:00am October 13, 2023 2:10pm Start: 12-10-2017 End: 10-13-2023 take 400 mg by mouth once daily Cranberry Discontinued 400 MG PO Daily December 09, 2017 11:00pm October 13, 2023 1:10pm Start: 12-10-2017 take 400 mg by mouth once daily Cranberry Active 400 MG PO Daily December 09, 2017 11:00pm Lactobacillus acidophilus (8 sources) End: 01-15-2024 Lactobacillus acidophilus (P ROBIOTIC ORAL) Take by mouth once daily. 0 01/15/2024 Discontinued Lactobacillus ac idophilus (PROBIOTIC ORAL) Take by mouth once daily. 0 Active Comment on above: Take by mouth once d aily. Multivitamin preparation (8 sources) Start: 12-10-2017 End: 10-13-2023 take 1 tablet by mouth once daily Multivitamin Discontinued 1 TAB PO Daily December 10, 2017 12:00am October 13, 2023 2:10pm Start: 12-10-2017 End: 10-13-2023 take 1 tablet by mouth once daily Multivitamin Discontinued 1 TAB PO Daily December 09, 2017 11:00pm October 13, 2023 1:10pm Start: 12-10-2017 take 1 tablet by alma th once daily Multivitamin Active 1 TAB PO Daily December 09, 2017 11:00pm phentermine hydrochloride 37.5 mg oral capsule (20 sources) Sympathomimetic Amine Anorectic Start: 10-13-2023 End: 03-07-2024 take 37.5 mg by mouth once daily 30 minutes after breakfast Phentermine Discontinued 37.5 MG PO Daily 30 30 January 12, 2024 8:59am March 07, 2024 9:05am must administer 30 minutes before or 1-2 hours after breakfast predniSONE 50 mg oral tablet (14 sources) Start: 08-04-2023 End: 01-06-2024 predniSONE (DELTASONE) 50 mg Take 1 tablet 13 hours, 7 hours, and 1 hour before Cat Scan 3 tablet 0 08/04/2023 01/06/2024 Discontinued (Course of therapy completed) Start: 02-07-2019 End: 02-09-2019 take 1 mg by mouth once daily Prednisone Discontinued 1 MG PO Daily February 07, 2019 12:00am February 09, 2019 12:26pm Comment on above: Take 1 tablet 13 lesia rs, 7 hours, and 1 hour before Cat Scan Problems Active Problems Problem Classification Problem Date Documented Da te Episodic/Chronic Abdominal pain (8 sources) Generalized abdominal pain; Translations: [Right upper quadrant pain] Onset: 2 Episodic Anxiety disorders (12 sources) Anxiety; Translations: [Anxiety disorder, unspecified] 12-15-2023 Chronic Asthma (20 sources) Allergic asthma; Translations: [Unspecified asthma, uncomplicated] Onset: 0 02-07-2019 Chronic Deficiency and other anemia (8 sources) Anemia due to blood loss; Translations: [Iron deficiency anemia secondary to blood loss (chronic)] 02-15-2019 Chronic Deficiency and other anemia (3 sources) Iron deficiency anemia secondary to blood loss (chronic); Translations: [Iron deficiency anemia secondary to blood loss (chronic)] 10-13-2023 Chronic Diseases of mouth; excluding dental (4 sources) Xerostomia; Translations: [Dry mouth, unspecified] 01-06-2024 Episodic E Codes: Natural/environment (3 sources) Bitten by cat, initial encounter; Translations: [Cat bite] Episodic Esophageal disorders (20 sources) Gastroesophageal reflux disease; Translations: [Gastro-esophageal reflux disease without esophagitis] Onset: 4 09-09-2023 Chronic Gastroduodenal ulcer (except hemorrhage) (14 sources) Antral ulcer; Translations: [Gastric ulcer, unspecified as acute or chronic, without hemorrhage or perforation] 02-15-2019 Chronic Gastroduodenal ulcer (except hemorrhage) (1 source) H/O: gastric ulcer 07-23-2023 Episodic Gastrointestinal hemorrhage (19 sources) Hematemesis; Translations: [Hematemesis] 02-07-2019 Episodic Genitourinary symptoms and ill-defined conditions (6 sources) Other microscopic hematuria; Translations: [Dysuria] Onset: 2 Episodic Immunizations and screening for infectious disease (9 sources) Anti-nuclear factor positive; Translations: [Other specified abnormal immunological findings in serum] 10-21-2023 Episodic Malaise and fatigue (20 sources) Other fatigue; Translations: [Fatigue] Onset: 3 Episodic Mood disorders (20 sources) Major depression, single episode; Translations: [Major depressive disorder, single episode, unspecified] Onset: 4 02-07-2019 Chronic Nonspecific chest pain (8 sources) Chest wall pain; Translations: [Other chest pain] 12-10-2017 Episodic Open wounds of extremities (3 sources) Open wound of knee and/or leg and/or ankle; Translations: [Puncture wound without foreign body, right lower leg, initial encounter] Episodic Osteoarthritis (1 source) Unspecified osteoarthritis, unspecified site; Translations: [Arthritis] Onset: 4 Chronic Other aftercare (1 source) Surgical follow-up; Translations: [Encounter for follow-up examination after completed treatment for conditions other than malignant neoplasm] 09-30-2023 Episodic Other and unspecified benign neoplasm (1 source) Hemangioma of intra-abdominal structure; Translations: [Hemangioma of intra-abdominal structures] Onset: 3 Episodic Other and unspecified benign neoplasm (1 source) Hemangioma of liver 07-21-2023 Episodic Other and unspecified benign neoplasm (7 sources) Hemangioma; Translations: [Hemangioma unspecified site] 10-13-2023 Episodic Other and unspecified benign neoplasm (3 sources) Hemangioma unspecified site; Translations: [Hemangioma of unspecified site] 10-13-2023 Episodic Other connective tissue disease (8 sources) Fibromyalgia; Translations: [Fibromyalgia] 07-23-2023 Episodic Other connective tissue disease (3 sources) Fibromyalgia; Translations: [Myalgia and myositis, unspecified] 10-13-2023 Episodic Other liver diseases (4 sources) Liver disease, unspecified; Translations: [LIVER DISEASE UNSPECIFIED] Onset: 2 Chronic Other liver diseases (1 source) Liver mass; Translations: [Hepatomegaly, not elsewhere classified] 08-03-2023 Episodic Other nervous system disorders (2 sources) Chronic pain syndrome; Translations: [Chronic pain syndrome] 01-06-2024 Chronic Other non-traumatic joint disorders (2 sources) Pain in unspecified joint; Translations: [PAIN IN UNSPECIFIED JOINT] Onset: 3 Episodic Other non-traumatic joint disorders (7 sources) Joint finding; Translations: [Joint disorder, unspecified] 10-13-2023 Episodic Other non-traumatic joint disorders (3 sources) Joint disorder, unspecified; Translations: [Unspecified disorder of joint, multiple sites] 10-13-2023 Episodic Other non-traumatic joint disorders (3 sources) Multiple joint pain; Translations: [Pain in unspecified joint] 01-06-2024 Episodic Other nutritional; endocrine; and metabolic disorders (8 sources) Obese class I; Translations: [Body mass index (BMI) 31.0-31.9, adult] Onset: 3 Chronic Other nutritional; endocrine; and metabolic disorders (9 sources) Body mass index 30+ - obesity; Translations: [Body mass index (BMI) 31.0-31.9, adult] Onset: 4 07-23-2023 Chronic Other nutritional; endocrine; and metabolic disorders (1 source) Obesity 07-23-2023 Chronic Other nutritional; endocrine; and metabolic disorders (15 sources) Obesity, unspecified; Translations: [Obesity, unspecified] 10-13-2023 Chronic Other screening for suspected conditions (not mental disorders or infectious disease) (20 sources) Encounter for screening mammogram for malignant neoplasm of breast; Translations: [Other abnormal and inconclusive findings on diagnostic imaging of breast] Onset: 2 Episodic Other skin disorders (3 sources) Easy bruising; Translations: [Other skin changes] Episodic Other upper respiratory disease (3 sources) Seasonal allergy; Translations: [Other seasonal allergic rhinitis] 01-27-2024 Chronic Other upper respiratory disease (3 sources) Other seasonal allergic rhinitis; Translations: [Allergic rhinitis, cause unspecified] 01-27-2024 Chronic Residual codes; unclassified (3 sources) Sleep apnea; Translations: [Sleep apnea, unspecified] Chronic Residual codes; unclassified (1 source) Obstructive sleep apnea (adult) (pediatric); Translations: [MARKY (obstructive sleep apnea)] Onset: 4 Chronic Residual codes; unclassified (7 sources) Family history of Yvonne thyroiditis; Translations: [Family history of other endocrine, nutritional and metabolic diseases] 10-13-2023 Episodic Residual codes; unclassified (7 sources) Family history of diabetes mellitus; Translations: [Family history of diabetes mellitus] 10-13-2023 Episodic Residual codes; unclassified (7 sources) FH: Rheumatoid arthritis; Translations: [Family history of arthritis] 10-13-2023 Episodic Residual codes; unclassified (3 sources) Family history of other endocrine, nutritional and metabolic diseases; Translations: [Family history of other endocrine and metabolic diseases] 10-13-2023 Episodic Residual codes; unclassified (3 sources) Family history of arthritis; Translations: [Family history of arthritis] 10-13-2023 Episodic Residual codes; unclassified (15 sources) Family history of diabetes mellitus; Translations: [Family history of diabetes mellitus] 10-13-2023 Episodic Residual codes; unclassified (5 sources) Disturbance in sleep behavior; Translations: [Sleep disorder, unspecified] 12-15-2023 Episodic Residual codes; unclassified (8 sources) Sleep disorder, unspecified; Translations: [Sleep disturbance, unspecified] 12-15-2023 Episodic Skin and subcutaneous tissue infections (1 source) Cellulitis of left lower limb Episodic Urinary tract infections (5 sources) Acute cystitis with hematuria; Translations: [Urinary tract infectious disease] Episodic Past or Other Problems Problem Classification Problem Date Documented Date Episodic/Chronic Biliary tract disease (13 sources) Cholelithiasis without obstruction; Translations: [Calculus of gallbladder without cholecystitis without obstruction] Onset: 07-23-2023 Episodic Other aftercare (1 source) Encounter for follow-up examination after completed treatment for conditions other than malignant neoplasm; Translations: [S/P gastrointestinal surgery, follow-up exam] Onset: 09-30-2023 Episodic Other liver diseases (1 source) Hepatomegaly, not elsewhere classified; Translations: [Liver mass] Onset: 08-21-2023 Episodic Residual codes; unclassified (4 sources) Obstructive sleep apnea syndrome; Translations: [Obstructive sleep apnea (adult) (pediatric)] Onset: 09-09-2023 Resolved: 09-10-2023 09-10-2023 Chronic Residual codes; unclassified (8 sources) Other specified postprocedural states; Translations: [Other postprocedural status] Onset: 09-10-2023 09-10-2023 Episodic Residual codes; unclassified (1 source) Acquired absence of other specified parts of digestive tract; Translations: [S/P laparoscopic cholecystectomy] Onset: 09-30-2023 Episodic Results Test Name Value Interpretation Reference Range Facility 25(OH)D3 [facility] 2023 25-hydroxyvitamin D3 [Mass/Vol] 27.4 ng/mL Low 31.0-80.0 [facility] Comment on above: Order Comment: Donte davis Type: BLOOD SPECIMENOrdering Facility: [facility] Address: [address] [place] [address] Result Comment: Clas sification of 25 [place] Vitamin D status: Deficiency/Insufficiency: < or = 30 ng/ml. Sufficiency/Optimal Levels: 31-80 ng/mL Toxicity: > 100 ng/mL. Test performed by chemiluminescent immunoassay. Performed By: #### 6 457-6, 56495-5, 1988-10 ####[facility] LAB[facility] [id number] [place] [address] [place] ALONDRA BY IFA SCREENon 01-06-20 24 Nuclear Ab pattern (S) [Interp] Nuclear homogeneous Normal [facility] Comment on above: Order Comment: Speci men Type: BLOOD SPECIMENOrdering Facility: [facility] Address: [address] [place] [address] Performed By: #### A NAIFS ####[facility] LABIA [id number] [place] [address] [place] Nuclear Ab Ql (S) Positive Abnormal Negative [facility] Comment on above: Order Comment: Speci men Type: BLOOD SPECIMENOrdering Facility: [facility] Address: [address] [place] [address] Result Comment: Anti -nuclear antibody test is used as an aid in diagnosis of systemic autoimmune diseases. Where positive and clinically warranted, follow-up using disease-specific testing is recommended. Low positive titers are not uncommon with advanced age, certain chronic infections, and malignancies among others. Test methodology: Indirect fluorescence immunoassay (IFA) using HEp-2 cells. 1:160 Performed By: #### A NAIFS ####[facility] LAB[facility] [id number] [place] [address] [place] Albumin [Mass/volume] in Ser um or Plasmaon 01-06-2024 Albumin [Mass/Vol] 4.66 g/dL 3.43-5.41 [place] Basophils Auto (Bld) [#/Vol] on 01-06-2024 Basophils (Bld) [#/Vol] 0.06 10*3/uL <0.11 [facility] Basophils/100 WBC Auto (Bld) on 01-06-2024 Basophils/100 WBC (Bld) 1.3 % [facility] Blood manual differential co mment interpretation narrativeon 01-06-2024 Manual differential comment [place] (Bld) [Interp] Auto [facility] C-REACTIVE PROTEINon 024 CRP [Mass/Vol] mg/dL NINF - 0.9 mg/dL [facility] [facility] C3 COMPLEMENTon 01-06-2024 Complement C3 [Mass/Vol] 155 mg/dL 86 - 166 mg/dL [facility] C3 SerPl-mCncon 01-06-2024 Complement C3 [Mass/Vol] 155 mg/dL Normal 86-166 [facility] Comment on above: Order Comment: Speci men Type: BLOOD SPECIMENOrdering Facility: [facility] Address: [address] [place] [address] Performed By: #### 4 498-2, 1987-12, , 4485-04 ####[facility] LABCLIA [id number] [place] [address] [place] C4 COMPLEMENTon 01-06-2024 Complement C4 [Mass/Vol] 25 mg/dL 13 - 46 mg/dL [facility] C4 SerPl-mCncon 01-06-2024 Complement C4 [Mass/Vol] 25 mg/dL Normal 13-46 [facility] Comment on above: Order Comment: Speci men Type: BLOOD SPECIMENOrdering Facility: [facility] Address: [address] [place] [address] Performed By: #### 4 498-2, 1987-12, , 4485-04 ####[facility] LABCLIA [id number] [place] [address] [place] CBC W Auto Differential pane l (Bld)on 01-06-2024 Basophils (Bld) [#/Vol] 0.06 10*3/uL [facility] Basophils/100 WBC (Bld) 1.3 % [facility] Differential cell count method Nom (Bld) Auto [facility] Eosinophils (Bld) [#/Vol] 0.19 10*3/uL [facility] Eosinophils/100 WBC (Bld) 4.1 % [facility] Erythrocyte distribution width (RBC) [Ratio] 12.2 % 11.5 - 15.0 % [facility] Hematocrit (Bld) [Volume fraction] 44.3 % 36.0 - 46.0 % [facility] Hemoglobin (Bld) [Mass/Vol] 14.1 g/dL 11.5 - 15.5 g/dL [facility] Immature granulocytes (Bld) [#/Vol] [facility] Immature granulocytes/100 WBC (Bld) 0.2 % [facility] Lymphocytes (Bld) [#/Vol] 1.86 10*3/uL [facility] Lymphocytes/100 WBC (Bld) 40.2 % [facility] MCH (RBC) [Entitic mass] 31.3 pg 26.0 - 34.0 pg [facility] MCHC (RBC) [Mass/Vol] 31.8 g/dL 30.5 - 36.0 g/dL [facility] MCV (RBC) [Entitic vol] 98.2 fL 80.0 - 100.0 fL [facility] Monocytes (Bld) [#/Vol] 0.43 10*3/uL [facility] Monocytes/100 WBC (Bld) 9.3 % [facility] Neutrophils (Bld) [#/Vol] 2.08 10*3/uL [facility] Neutrophils/100 WBC (Bld) 44.9 % [facility] Nucleated RBC (Bld) [#/Vol] NINF [facility] Nucleated RBC/100 WBC (Bld) [Ratio] 0.0 % /100 WBC [facility] Platelet mean volume (Bld) [Entitic vol] 10.4 fL 9.0 - 12.7 fL [facility] Platelets (Bld) [#/Vol] 285 10*3/uL [facility] RBC (Bld) [#/Vol] 4.51 10*6/uL 3.90 - 5.2 0 m/uL [facility] WBC (Bld) [#/Vol] 4.63 10*3/uL [facility] Basophils (Bld) [#/Vol] 0.06 10*3/uL Normal <0.11 [facility] Comment on above: Order Comment: Speci men Type: BLOOD SPECIMENOrdering Facility: [facility] Address: [address] [place] [address] Performed By: #### 5 7021-8, 4537-02 ####[facility] LABCLIA [id number] [address] [place] Basophils/100 WBC (Bld) 1.3 % Normal [facility] Comment on above: Order Comment: Speci men Type: BLOOD SPECIMENOrdering Facility: [facility] Address: [address] [place] [address] Performed By: #### 5 7021-8, 4537-02 ####[facility] LABCLIA [id number] [place] [address] [place] Differential cell count method Nom (Bld) Auto Normal [facility] Comment on above: Order Comment: Speci men Type: BLOOD SPECIMENOrdering Facility: [facility] Address: [address] [place] [address] Performed By: #### 5 7021-8, 4536-7 ####[facility] LABCLIA [id number] [place] [address] [place] Eosinophils (Bld) [#/Vol] 0.19 10*3/uL Normal <0.46 [facility] Comment on above: Order Comment: Speci men Type: BLOOD SPECIMENOrdering Facility: [facility] Address: [address] [place] [address] Performed By: #### 5 7021-8, 7 ####[facility] LABCLIA [id number] [place] [address] [place] Eosinophils/100 WBC (Bld) 4.1 % Normal [facility] Comment on above: Order Comment: Speci men Type: BLOOD SPECIMENOrdering Facility: [facility] Address: [address] [place] [address] Performed By: #### 5 7021-8, 4536-7 ####[facility] LABCLIA [id number] [place] [address] [place] Erythrocyte distribution width (RBC) [Ratio] 12.2 % Normal 11.5-15.0 [facility] Comment on above: Order Comment: Speci men Type: BLOOD SPECIMENOrdering Facility: [facility] Address: [address] [place] [address] Performed By: #### 5 7021-8, 4536-7 ####[facility] LABCLIA [id number] [place] [address] [place] Hematocrit (Bld) [Volume fraction] 44.3 % Normal 36.0-46.0 [facility] Comment on above: Order Comment: Speci men Type: BLOOD SPECIMENOrdering Facility: [facility] Address: [address] [place] [address] Performed By: #### 5 7021-8, 4537-7 ####[facility] LABCLIA [id number] [place] [address] [place] Hemoglobin (Bld) [Mass/Vol] 14.1 g/dL Normal 11.5-15.5 [facility] Comment on above: Order Comment: Speci men Type: BLOOD SPECIMENOrdering Facility: [facility] Address: [address] [place] [address] Performed By: #### 5 7021-8, 4537-7 ####[facility] LABCLIA [id number] [place] [address] [place] Immature granulocytes (Bld) [#/Vol] 10*3/uL Normal <0.10 [facility] Comment on above: Order Comment: Speci men Type: BLOOD SPECIMENOrdering Facility: [facility] Address: [address] [place] [address] Performed By: #### 5 7021-8, 4536-7 ####[facility] LABCLIA [id number] [place] [address] [place] Immature granulocytes/100 WBC (Bld) 0.2 % Normal [facility] Comment on above: Order Comment: Speci men Type: BLOOD SPECIMENOrdering Facility: [facility] Address: [address] [place] [address] Performed By: #### 5 7021-8, 7-7 ####[facility] LABCLIA [id number] [place] [address] [place] Lymphocytes (Bld) [#/Vol] 1.86 10*3/uL Normal 1.00-4.00 [facility] Comment on above: Order Comment: Speci men Type: BLOOD SPECIMENOrdering Facility: [facility] Address: [address] [place] [address] Performed By: #### 5 7021-8, 4537-7 ####[facility] LABCLIA [id number] [place] [address] [place] Lymphocytes/100 WBC (Bld) 40.2 % Normal [facility] Comment on above: Order Comment: Speci men Type: BLOOD SPECIMENOrdering Facility: [facility] Address: [address] [place] [address] Performed By: #### 5 7021-8, 4537-7 ####[facility] LABCLIA [id number] [place] [address] [place] MCH (RBC) [Entitic mass] 31.3 pg Normal 26.0-34.0 [facility] Comment on above: Order Comment: Speci men Type: BLOOD SPECIMENOrdering Facility: [facility] Address: [address] [place] [address] Performed By: #### 5 7021-8, 4537-7 ####[facility] LABIA [id number] [place] [address] [place] MCHC (RBC) [Mass/Vol] 31.8 g/dL Normal 30.5-36.0 [facility] Comment on above: Order Comment: Speci men Type: BLOOD SPECIMENOrdering Facility: [facility] Address: [address] [place] [address] Performed By: #### 5 7021-8, 4537-7 ####[facility] LABIA [id number] [place] [address] [place] MCV (RBC) [Entitic vol] 98.2 fL Normal 80.0-100.0 [facility] Comment on above: Order Comment: Speci men Type: BLOOD SPECIMENOrdering Facility: [facility] Address: [address] [place] [address] Performed By: #### 5 7021-8, 4536-7 ####[facility] LABCLIA [id number] [place] [address] [place] Monocytes (Bld) [#/Vol] 0.43 10*3/uL Normal <0.87 [facility] Comment on above: Order Comment: Speci men Type: BLOOD SPECIMENOrdering Facility: [facility] Address: [address] [place] [address] Performed By: #### 5 7021-8, 7 ####[facility] LABCLIA [id number] [place] [address] [place] Monocytes/100 WBC (Bld) 9.3 % Normal [facility] Comment on above: Order Comment: Speci men Type: BLOOD SPECIMENOrdering Facility: [facility] Address: [address] [place] [address] Performed By: #### 5 7021-8, 7 ####[facility] LABCLIA [id number] [place] [address] [place] Neutrophils (Bld) [#/Vol] 2.08 10*3/uL Normal 1.45-7.50 [facility] Comment on above: Order Comment: Speci men Type: BLOOD SPECIMENOrdering Facility: [facility] Address: [address] [place] [address] Performed By: #### 5 7021-8, 7 ####[facility] LABCLIA [id number] [place] [address] [place] Neutrophils/100 WBC (Bld) 44.9 % Normal [facility] Comment on above: Order Comment: Speci men Type: BLOOD SPECIMENOrdering Facility: [facility] Address: [address] [place] [address] Performed By: #### 5 7021-8, 4536-7 ####[facility] LABCLIA [id number] [place] [address] [place] Nucleated RBC (Bld) [#/Vol] 10*3/uL Normal <0.01 [facility] Comment on above: Order Comment: Speci men Type: BLOOD SPECIMENOrdering Facility: [facility] Address: [address] [place] [address] Performed By: #### 5 7021-8, 4537-7 ####[facility] LABCLIA [id number] [place] [address] [place] Nucleated RBC/100 WBC (Bld) [Ratio] 0.0 /100 WBC Normal [facility] Comment on above: Order Comment: Speci men Type: BLOOD SPECIMENOrdering Facility: [facility] Address: [address] [place] [address] Performed By: #### 5 7021-8, 4537-7 ####[facility] LABCLIA [id number] [place] [address] [place] Platelet mean volume (Bld) [Entitic vol] 10.4 fL Normal 9.0-12.7 [facility] Comment on above: Order Comment: Speci men Type: BLOOD SPECIMENOrdering Facility: [facility] Address: [address] [place] [address] Performed By: #### 5 7021-8, 4537-7 ####[facility] LABCLIA [id number] [place] [address] [place] Platelets (Bld) [#/Vol] 285 10*3/uL Normal 150-400 [facility] Comment on above: Order Comment: Speci men Type: BLOOD SPECIMENOrdering Facility: [facility] Address: [address] [place] [address] Performed By: #### 5 7021-8, 4537-7 ####[facility] LABCLIA [id number] [place] [address] [place] RBC (Bld) [#/Vol] 4.51 10*6/uL Normal 3.90-5.20 [facility] Comment on above: Order Comment: Speci men Type: BLOOD SPECIMENOrdering Facility: [facility] Address: [address] [place] [address] Performed By: #### 5 7021-8, 4537-7 ####[facility] LABCLIA [id number] [place] [address] [place] WBC (Bld) [#/Vol] 4.63 10*3/uL Normal 3.70-11.00 [facility] Comment on above: Order Comment: Speci men Type: BLOOD SPECIMENOrdering Facility: [facility] Address: [address] [place] [address] Performed By: #### 5 7021-8, 4537-7 ####[facility] LABCLIA [id number] [place] [address] [place] CK SerPl-cCncon 01-06-2024 CK [Catalytic activity/Vol] 119 U/L Normal 42-196 [facility] Comment on above: Order Comment: Speci men Type: BLOOD SPECIMENOrdering Facility: [facility] Address: [address] [place] [address] Performed By: #### 2 157-6, 44970-6 ####[facility] LABCLIA [id number] [place] [address] [place] CNOVon 01-06-2024 CNOV Office Visit (BEKAH ) -------- STACIE DAVIDSON ([id number]) 1970 F Date Time Provider Department 01/06/24 9:30 AM LAINEY, TIM RHEULN During your visit today, we recorded the following information about you: Pulse Blood pressure Weight Height 85/minute 130/74 75 kg 1.549 m Tim Plaza MD 01/06/2024 11:17 AM Signed [facility] Date of Service: 01/06/2024 Patient: Stacie Davidson Medical Record: [id number] Primary Care Physician: Marry Schroeder CNP, CNP Referring Provider: Marry Schroeder CNP ([facility]) [address] [facility] [address] Last [facility]umatology visit: None at [facility] Chief complaint: Consult (Pos alondra test. ), Pain (X few of yrs of ongoing generalized pain. ), and Eye Problem (Bi-lateral dry eyes.) Consultation requested by Marry Schroeder CNP for an opinion regarding arthritis. My final recommendations will be communicated back to the requesting physician by way of shared Medical record or letter to requesting physician via US mail. History of Present Illness Stacie Davidson is a 53 year old female with medical history of fibromyalgia, depression, history of gastric ulcer(with NSAIDs use), dementia, hepatic hemangioma, GERD, asthma, nephrolithiasis, status post cholecystectomy, presents on 01/06/2024 for an in-person visit for evaluation of Consult (Pos alondra test. ), Pain (X few of yrs of ongoing generalized pain. ), and Eye Problem (Bi-lateral dry eyes.). HISTORY OF PRESENT ILLNESS Patient reports having widespread pain for 5 years, getting worse. Pain is all over her body, she feels like she is hit by car. Pain is worst over low back and right lower leg. Right leg feels heavy sometimes. Pain is constant whole day, worse with activities Has good and bad days, symptoms are worse in cold, damp weather Right leg swelling sometimes to the size of thigh, usually end of day, gets better with elevation. She also reports fatigue Reports dry eyes, light sensitivity, has episodes of excessive tearing Has dry mouth, drinks water often Was found to have positive ALONDRA, results not available to me Saw Rheum 2 yrs ago- diagnosed fibromyalgia, however has not been treated for this by PCP, has also not been referred to fibromyalgia specialist. She also reports pins and needles in the hands R> L. Wakes up at night with numbness and tingling over hand No joint swelling EMS- few hours Reports brain fog, allodynia, does not feel rested in am Takes tylenol that helps to some extent. Denies history of inflammatory eye disease, inflammatory bowel disease, psoriasis, history of kidney disease/biopsy, miscarriages, blood clots, malignancy, pleural/pericardial effusion, CHF, CAD, CVA. Patient-Entered Data PAIN EVALUATION 01/06/2024 0934 Pain Level: 6 Pain Location: Generalized Description: Aching Duration Units: Years Frequency: Continuous PROMIS Assessments No data to display RAPID 3 [place] Activities of Daily Living No Data Dress self? - Get in and out of bed? - Walk outdoors? - Wash and dry body? - Get in and out of car? - RAPID 3 Disease Activity Weighed Score Levels: 0 - 1: Near Remission 1.3 - 2.0: Low Severity 2.3 - 4.0: Moderate Severity 4.3 - 10.0: High Severity No data to display Review of Systems ROS RHEUMATOLOGY Fever: Denies Change in weight: Denies Lymphadenopathy: Denies Mucosal ulcers: Denies Skin rash: Denies Chest Pain: Denies Dyspnea: Denies Cough : Denies Difficulty swallowing: Denies Nausea/vomiting: Denies Heartburn: Denies Abdominal Pain: Denies Diarrhea/constipation :Denies Blood in stool : Denies Dysuria/hematuria: Denies Muscle pain: Denies Muscle weakness: Denies Numbness: Denies Headache: Denies change in vision: Denies Raynaud's: Denies Sicca: Denies Past Medical History PAST MEDICAL HISTORY Diagnosis Date Asthma Depression GERD (gastroesophageal reflux disease) Past Surgical History PAST SURGICAL HISTORY Procedure Laterality Date LAPAROSCOPIC CHOLECYSTECTOMY 09/16/2023 PAST SURGICAL HISTORY OF Left 1988 lumpectomy Allergy ALLERGIES Allergen Reactions Sulfa (Sulfonamide * Rash Tetracyclines Itching, Rash, Shortness of Breath Family History Mother has Psoriasis. The patient denies family history of SLE, RA, Sarcoidosis, Scleroderma, IBD No family history on file. Social History Social History Tobacco Use Smoking status: Never Smokeless tobacco: Never Vaping Use Vaping Use: Never used Substance Use Topics Alcohol use: Not Currently Drug use: Never Current Medications Current Outpatient Medications Medication Sig cetirizine (ZYRTEC) 10 mg tablet Take by mouth every 12 hours. Phentermine HCl 37.5 mg capsule TAKE 1 CAPSULE BY MOUTH EVERY DAY FOR 30 DAYS. administer 30 minutes before or 1-2 hours after breakfast traZODone (DESYREL) (more content not included)... Normal [facility] CREATINE KINASE/CKon 024 CK [Catalytic activity/Vol] 119 U/L 42 - 196 U/L [facility] CRP SerPl-mCncon 01-06-2024 CRP [Mass/Vol] mg/L Normal <0.9 [facility] Comment on above: Order Comment: Speci men Type: BLOOD SPECIMENOrdering Facility: [facility] Address: [address] [place] [address] Performed By: #### 4 498-2, 1987-5, 03836-2, 4485-9 ####[facility] LABIA [id number] [place] [address] [place] Centromere Ab IF Ql (S)on Centromere Ab Qn (S) <0.2 Normal <1.0 [facility] Comment on above: Order Comment: Speci men Type: BLOOD SPECIMENOrdering Facility: [facility] Address: [address] [place] [address] Result Comment: Anti -centromere antibody is used as in aid in diagnosis of systemic sclerosis. Clinical correlation is required. Test Methodology: Multiplex flow immunoassay. Performed By: #### 1 1565-9, 87570-9, 66952-0, 63947-7, 56045-3, 86488-8, 13222-1, 65869-3 ####[facility] LABIA [id number] [place] [address] [place] CENTROMERE AB QUAL Negative Normal Negative [facility] Comment on above: Order Comment: Speci men Type: BLOOD SPECIMENOrdering Facility: [facility] Address: [address] [place] [address] Performed By: #### 1 1565-9, 37027-5, 76374-8, 15056-4, 18383-8, 56314-3, 67668-3, 61620-0 ####[facility] LABIA [id number] [place] [address] [place] Chromatin Ab Qnon 01-06-2024 CHROMATIN AB QUAL Negative Normal Negative [facility] Comment on above: Order Comment: Speci men Type: BLOOD SPECIMENOrdering Facility: [facility] Address: [address] [place] [address] Performed By: #### 1 1565-9, 53591-2, 92369-1, 07429-0, 40633-4, 83731-1, 10831-5, 67601-6 ####[facility]CLIA [id number] [place] [address] [place] Chromatin Ab SerPl-aCncon Chromatin Ab Qn <0.2 Normal <1.0 [facility] Comment on above: Order Comment: Speci men Type: BLOOD SPECIMENOrdering Facility: [facility] Address: [address] [place] [address] Result Comment: Test Methodology: Multiplex flow immunoassay. Performed By: #### 1 1565-9, 87841-3, 50747-2, 53780-8, 80774-7, 78610-6, 79462-4, 18077-4 ####[facility] LABCLIA [id number] [place] [address] [place] Comprehensive metabolic 2000 panelon 01-06-2024 Albumin [Mass/Vol] 4.6 g/dL 3.9 - 4.9 g/dL [facility] ALP [Catalytic activity/Vol] 77 U/L 34 - 123 U/L [facility] ALT [Catalytic activity/Vol] 22 U/L 7 - 38 U/L [facility] Anion gap [Moles/Vol] 15 mmol/L 9 - 18 mmol/L [facility] AST [Catalytic activity/Vol] 21 U/L 13 - 35 U/L [facility] Bilirubin [Mass/Vol] 0.3 mg/dL 0.2 - 1 .3 mg/dL [facility] Calcium [Mass/Vol] 9.8 mg/dL 8.5 - 10. 2 mg/dL [facility] Chloride [Moles/Vol] 100 mmol/L 97 - 10 5 mmol/L [facility] CO2 [Moles/Vol] 25 mmol/L 22 - 30 mmol/L [facility] Creatinine [Mass/Vol] 0.75 mg/dL 0.58 - 0.96 mg/dL [facility] GFR/1.73 sq M.predicted among non-blacks MDRD (S/P/Bld) [Vol rate/Area] 95 mL/min/{1.73_m2} - PINF [facility] Comment on above: Estimated Glomerular Filtration Rate (eGFR) is calculated using the 2020 CKD-EPI creatinine equation. This equation utilizes serum creatinine, sex, and age as parameters. The creatinine assay has traceable calibration to isotope dilution-mass spectrometry. Refer to KDIGO guidelines for clinical interpretation. In patients with unstable renal function, e.g. those with acute kidney injury, the eGFR may not accurately reflect actual GFR. Glucose [Mass/Vol] 92 mg/dL 74 - 99 mg/dL [facility] Comment on above: The [place] Diab[employer] s Association (ADA) provides guidance for cutoff values [...] Standards of Medical Care in Diabetes 2016, [place] [employer]. Diabetes Care. 2016.39(Suppl 1). Potassium [Moles/Vol] 4.0 mmol/L 3.7 - 5.1 mmol/L [facility] Protein [Mass/Vol] 7.7 g/dL 6.3 - 8.0 g/dL [facility] Sodium [Moles/Vol] 140 mmol/L 136 - 144 mmol/L [facility] Urea nitrogen [Mass/Vol] 13 mg/dL 7 - 21 mg/dL [facility] Albumin [Mass/Vol] 4.6 g/dL Normal 3.9-4.9 [facility] Comment on above: Order Comment: Speci men Type: BLOOD SPECIMENOrdering Facility: [facility] Address: [address] [place], [place] [address] Performed By: #### 4 498-2, 1987-12, , 4485-04 ####[facility] LABCLIA [id number] [place] [address] [place] ALP [Catalytic activity/Vol] 77 U/L Normal 34-123 [facility] Comment on above: Order Comment: Speci men Type: BLOOD SPECIMENOrdering Facility: [facility] Address: [address] [place] [address] Performed By: #### 4 498-2, 1987-12, , 4485-04 ####[facility] LABIA [id number] [place] [address] [place] ALT [Catalytic activity/Vol] 22 U/L Normal 7-38 [facility] Comment on above: Order Comment: Speci men Type: BLOOD SPECIMENOrdering Facility: [facility] Address: [address] [place] [address] Performed By: #### 4 498-2, 1987-12, , 4485-04 ####[facility] LABIA [id number] [place] [address] [place] Anion gap [Moles/Vol] 15 mmol/L Normal 9-18 [facility] Comment on above: Order Comment: Speci men Type: BLOOD SPECIMENOrdering Facility: [facility] Address: [address] [place] [address] Performed By: #### 4 498-2, 1987-12, , 4485-04 ####[facility] LABIA [id number] [place] [address] [place] AST [Catalytic activity/Vol] 21 U/L Normal 13-35 [facility] Comment on above: Order Comment: Speci men Type: BLOOD SPECIMENOrdering Facility: [facility] Address: [address] [place] [address] Performed By: #### 4 498-2, 1987-12, , 4485-04 ####[facility] LABCLIA [id number] [address] [address] [place] Bilirubin [Mass/Vol] 0.3 mg/dL Normal 0.2-1.3 [facility] Comment on above: Order Comment: Speci men Type: BLOOD SPECIMENOrdering Facility: [facility] Address: [address] [place] [address] Performed By: #### 4 498-2, 1987-12, , 4485-04 ####[facility] LABIA [id number] [place] [address] [place] Calcium [Mass/Vol] 9.8 mg/dL Normal 8.5-10.2 [facility] Comment on above: Order Comment: Speci men Type: BLOOD SPECIMENOrdering Facility: [facility] Address: [address] [place], [place] [address] Performed By: #### 4 498-2, 1987-12, , 4485-04 ####[facility] LABCLIA [id number] [place] [address] [place] Chloride [Moles/Vol] 100 mmol/L Normal 97-105 [facility] Comment on above: Order Comment: Speci men Type: BLOOD SPECIMENOrdering Facility: [facility] Address: [address] [place], [place] [address] Performed By: #### 4 498-2, 1987-12, , 4485-04 ####[facility] LABCLIA [id number] [place] [address] [place] CO2 [Moles/Vol] 25 mmol/L Normal 22-30 [facility] Comment on above: Order Comment: Speci men Type: BLOOD SPECIMENOrdering Facility: [facility] Address: [address] [place] [address] Performed By: #### 4 498-2, 1987-12, , 4485-04 ####[facility] LABIA [id number] [address] [address] [place] Creatinine [Mass/Vol] 0.75 mg/dL Normal 0.58-0.96 [facility] Comment on above: Order Comment: Specyovany men Type: BLOOD SPECIMENOrdering Facility: [facility] Address: [address] [place] [address] Performed By: #### 4 498-2, 1987-12, , 4485-04 ####[facility] [id number] [place] [address] [place] Creatinine and Glomerular filtration rate.predicted panel (S/P/Bld) 95 mL/min/1.73m??? Normal >=60 [facility] Comment on above: Order Comment: Donte davis Type: BLOOD SPECIMENOrdering Facility: [facility] Address: [address] [place] [address] Result Comment: Petra mated Glomerular Filtration Rate [...] accurately reflect actual GFR. Performed By: #### 4 498-2, 1987-12, , 4485-04 ####[facility] LABIA [id number] [address] [address] [place] Glucose [Mass/Vol] 92 mg/dL Normal 74-99 [facility] Comment on above: Order Comment: Donte men Type: BLOOD SPECIMENOrdering Facility: [facility] Address: [address] [place] [address] Result Comment: The [place] [employer] Association (ADA) provides guidance for cutoff [...] Standards of Medical Care in Diabetes 2016, [place] [employer]. Diabetes Care. 2016.39(Suppl 1). Performed By: #### 4 498-2, 1987-12, , 4485-04 ####[facility] LAB[facility]IA [id number] [place] [address] [place] Potassium [Moles/Vol] 4.0 mmol/L Normal 3.7-5.1 [facility] Comment on above: Order Comment: Donte davis Type: BLOOD SPECIMENOrdering Facility: [facility] Address: [address] [place] [address] Performed By: #### 4 498-2, 1987-12, , 4485-04 ####[facility] LABIA [id number] [place] [address] [place] Protein [Mass/Vol] 7.7 g/dL Normal 6.3-8.0 [facility] Comment on above: Order Comment: Donte davis Type: BLOOD SPECIMENOrdering Facility: [facility] Address: [address] [place] [address] Performed By: #### 4 498-2, 1987-12, , 4485-04 ####[facility] LABIA [id number] [place] [address] [place] Sodium [Moles/Vol] 140 mmol/L Normal 136-144 [facility] Comment on above: Order Comment: Donte men Type: BLOOD SPECIMENOrdering Facility: [facility] Address: [address] [place] [address] Performed By: #### 4 498-2, 1987-12, , 9 ####[facility] LABCLIA [id number] [place] [address] [place] Urea nitrogen [Mass/Vol] 13 mg/dL Normal 7-21 [facility] Comment on above: Order Comment: Speci men Type: BLOOD SPECIMENOrdering Facility: [facility] Address: [address] [place] [address] Performed By: #### 4 498-2, 1987-12, , 4485-04 ####[facility] LABIA [id number] [place] [address] [place] Cyclic citrullinated peptide IgG Qnon 01-06-2024 CCP ANTIBODY IGG QUALITATIVE Negative Normal Negative [facility] Comment on above: Order Comment: Speci men Type: BLOOD SPECIMENOrdering Facility: [facility] Address: [address] [place] [address] Performed By: #### 3 3935-8 ####[facility] LABIA [id number] [place] [address] [place] DNA double strand Ab IA Qn ( S)on 01-06-2024 DNA ANTIBODY 514 IU/mL High <=200 [facility] Comment on above: Order Comment: Speci men Type: BLOOD SPECIMENOrdering Facility: [facility] Address: [address] [place] [address] Result Comment: Nega tive: <200 IU/mL Equivocal: 201-300 IU/mL Moderate Positive: 301-800 IU/mL Strong Positive: >801 IU/mL Performed By: #### 6 457-6, 37265-5, 1988-10 ####[facility] LABIA [id number] [place] [address] [place] DNA ANTIBODY QUALITATIVE INTERPRETATION Positive Abnormal Negative [facility] Comment on above: Order Comment: Speci men Type: BLOOD SPECIMENOrdering Facility: [facility] Address: [address] [place] [address] Performed By: #### 6 457-6, 23729-0, 3 ####[facility] LABCLIA [id number] [place] [address] [place] DONALD Jo1 Ab Ser-aCncon 2023 Mariaa-1 extractable nuclear Ab Qn (S) <0.2 Normal <1.0 [facility] Comment on above: Order Comment: Speci men Type: BLOOD SPECIMENOrdering Facility: [facility] Address: [address] [place] [address] Performed By: #### 1 1565-9, 37376-1, 60742-1, 42144-0, 98585-5, 28258-4, 50767-6, 52492-4 ####[facility] LABIA [id number] [place] [address] [place] DONALD INSTRUCTOR WATCH ASSEMBLY Ab Ser-aCncon 2023 Ribonucleoprotein extractable nuclear Ab Qn (S) <0.2 Normal <1.0 [facility] Comment on above: Order Comment: Speci men Type: BLOOD SPECIMENOrdering Facility: [facility] Address: [address] [place] [address] Performed By: #### 1 1565-9, 65648-5, 71267-9, 51536-6, 67807-6, 16665-3, 23956-2, 79662-3 ####[facility] LABIA [id number] [place] [address] [place] DONALD SM IgG Ser-aCncon 2023 English extractable nuclear IgG Qn (S) <0.2 Normal <1.0 [facility] Comment on above: Order Comment: Speci men Type: BLOOD SPECIMENOrdering Facility: [facility] Address: [address] [place] [address] Performed By: #### 1 1565-9, 18736-3, 78872-8, 08729-4, 31715-8, 60328-8, 97468-6, 74519-9 ####[facility]IA [id number] [address] [place] DONALD SS-A Ab Ser-aCncon 01-05 Sjogrens syndrome-A extractable nuclear Ab Qn (S) 0.3 AI Normal <1.0 [facility] Comment on above: Order Comment: Speci men Type: BLOOD SPECIMENOrdering Facility: [facility] Address: [address] [place] [address] Result Comment: Test Methodology: Multiplex flow immunoassay. Performed By: #### 1 1565-9, 95153-7, 95110-3, 34857-3, 55217-4, 86434-8, 42273-0, 77215-5 ####[facility] [id number] [address] [place] DONALD SS-B Ab Ser-aCncon 01-05 Sjogrens syndrome-B extractable nuclear Ab Qn (S) <0.2 Normal <1.0 [facility] Comment on above: Order Comment: Speci men Type: BLOOD SPECIMENOrdering Facility: [facility] Address: [address] [place] [address] Result Comment: Anti -SSB (anti-La) antibody is used as an aid in diagnosis of a variety of systemic autoimmune diseases, especially for Sjogren's syndrome and systemic lupus erythematosus. Clinical correlation is required. Test Methodology: Multiplex flow immunoassay. Performed By: #### 1 1565-9, 50046-3, 94812-4, 89988-4, 37618-7, 34134-6, 27873-9, 90278-2 ####[facility] LABIA [id number] [place] [address] [place] ESR Westergren method (Bld) [Velocity]on 01-06-2024 ESR (Bld) [Velocity] 5 mm/h [facility] Interpretation and review of laboratory results Normal [facility] ESR (Bld) [Velocity] 5 mm/h Normal 0-20 [facility] Comment on above: Order Comment: Speci ryan Type: BLOOD SPECIMENOrdering Facility: [facility] Address: [address] [place] [address] Performed By: #### 5 7021-8, 4537-7 ####[facility] LABCLIA [id number] [place] [address] [place] Eosinophils/100 WBC Auto (Bl d)on 01-06-2024 Eosinophils/100 WBC (Bld) 4.1 % [facility] Erythrocyte distribution wid th Auto (RBC) [Ratio]on 01-06-2024 Erythrocyte distribution width (RBC) [Ratio] 12.2 % 11.5-15.0 [facility] Hematocrit Auto (Bld) [Volum e fraction]on 01-06-2024 Hematocrit (Bld) [Volume fraction] 44.3 % 36.0-46.0 [facility] Hemoglobin [Mass/volume] in Bloodon 01-06-2024 Hemoglobin (Bld) [Mass/Vol] 14.1 g/dL 11.5-15.5 [facility] Mariaa-1 extractable nuclear Ab Qn (S)on 01-06-2024 MARIAA 1 ANTIBODY QUAL Negative Normal Negative [facility] Comment on above: Order Comment: Donte davis Type: BLOOD SPECIMENOrdering Facility: [facility] Address: [address] [place] [address] Result Comment: Anti -MARIAA-1 antibody is used as an aid in diagnosis of polymyositis and dermatomyositis especially with pulmonary involvement. A negative result cannot rule out polymyositis or dermatomyositis. Clinical correlation is required. Test Methodology: Multiplex flow immunoassay. Performed By: #### 1 1565-9, 83325-8, 68951-5, 74309-4, 00011-7, 64678-4, 35512-2, 31138-3 ####[facility] LABCLIA [id number] [place] [address] [place] Laboratory - Chemistry and C hemistry - challengeon 01-06-2024 Albumin [Mass/Vol] 4.6 g/dL 3.9-4.9 [place] ALP [Catalytic activity/Vol] 77 U/L 34-123 [facility] ALT [Catalytic activity/Vol] 22 U/L 7-38 [facility] AST [Catalytic activity/Vol] 21 U/L 13-35 [facility] Bilirubin [Mass/Vol] 0.3 mg/dL 0.2-1.3 [facility] Calcium [Mass/Vol] 9.8 mg/dL 8.5-10.2 [place] Chloride [Moles/Vol] 100 mmol/L 97-105 [facility] CK [Catalytic activity/Vol] 119 U/L 42-196 [facility] CO2 [Moles/Vol] 25 mmol/L 22-30 [facility] Creatinine [Mass/Vol] 0.75 mg/dL 0.58-0.96 [facility] Glucose [Mass/Vol] 92 mg/dL 74-99 [place] Comment on above: The [place] Diabete s Association (ADA) provides guidance for cutoff values for fasting glucose and random glucose. The ADA defines fasting as no caloric intake for at least 8 hours. Fasting plasma glucose results between 100 to 125 mg/dL indicate increased risk for diabetes (prediabetes).Fasting plasma glucose results greater than or equal to 126 mg/dL meet the criteria for diagnosis of diabetes. In the absence of unequivocal hyperglycemia, results should be confirmed by repeat testing. In a patient with classic symptoms of hyperglycemia or hyperglycemic crisis, random plasma glucose results greater than or equal to 200 mg/dL meet the criteria for diagnosis of diabetes.Reference: Standards of Medical Care in Diabetes 2016, [place] [employer]. Diabetes Care. 2016.39(Suppl 1). Potassium [Moles/Vol] 4.0 mmol/L 3.7-5.1 [facility] Protein [Mass/Vol] 0.00 g/dL <=0.00 [place] Sodium [Moles/Vol] 140 mmol/L 136-144 [place] Urea nitrogen [Mass/Vol] 13 mg/dL 7-21 [facility] Laboratory - Hematology and Cell countson 01-06-2024 Eosinophils (Bld) [#/Vol] 0.19 10*3/uL <0.46 [facility] ESR (Bld) [Velocity] 5 mm/h 0-20 [facility] Immature granulocytes/100 WBC (Bld) 0.2 % [facility] Leukocytes [#/volume] correc gudelia for nucleated erythrocytes in Blood by Automated counon 01-06-2024 WBC corrected for nucl RBC Auto (Bld) [#/Vol] 4.63 k/uL 3.70-11.00 [facility] Lymphocytes Auto (Bld) [#/Vo l]on 01-06-2024 Lymphocytes (Bld) [#/Vol] 1.86 10*3/uL 1.00-4.00 [facility] Lymphocytes/100 WBC Auto (Bl d)on 01-06-2024 Lymphocytes/100 WBC (Bld) 40.2 % [facility] MCH Auto (RBC) [Entitic mass ]on 01-06-2024 MCH (RBC) [Entitic mass] 31.3 pg 26.0-34.0 [facility] MCHC Auto (RBC) [Mass/Vol]on 01-06-2024 MCHC (RBC) [Mass/Vol] 31.8 g/dL 30.5-36.0 [facility] MCV Auto (RBC) [Entitic vol] on 01-06-2024 MCV (RBC) [Entitic vol] 98.2 fL 80.0-100.0 [facility] Monocytes Auto (Bld) [#/Vol] on 01-06-2024 Monocytes (Bld) [#/Vol] 0.43 10*3/uL <0.87 [facility] Monocytes/100 WBC Auto (Bld) on 01-06-2024 Monocytes/100 WBC (Bld) 9.3 % [facility] Neutrophils Auto (Bld) [#/Vo l]on 01-06-2024 Neutrophils (Bld) [#/Vol] 2.08 10*3/uL 1.45-7.50 [facility] Neutrophils/100 WBC Auto (Bl d)on 01-06-2024 Neutrophils/100 WBC (Bld) 44.9 % [facility] No Panel Informationon 01-05 Interpretation and review of laboratory results Normal [facility] Interpretation and review of laboratory results Normal [facility] Anti-Centromere Ab Interpretation Negative Negative [facility] Anti-Double Strand DNA Antibody 514 [IU]/mL High <=200 [facility] Comment on above: Negative: <200 IU/mL Equivocal: 201-300 IU/mLModerate Positive: 301-800 IU/mLStrong Positive: >801 IU/mL Anti-ds DNA IgG Ab (Crithidia) Positive Negative [facility] Anti-ds DNA IgG Ab (Crithidia) Negative Negative [facility] Comment on above: Crithidia luciliae a ssay is used as an aid in diagnosis of systemic lupus erythematosus (SLE). A negative result cannot rule out SLE. Low positive titers may be seen with other systemic autoimmune diseases. Clinical correlation is required. Anti-English Antibody Interpretation Negative Negative [facility] Comment on above: Anti-Sm (English) anti body is used as an aid in diagnosis of systemic lupus erythematosus and its presence is associated with renal disease. A negative result cannot rule out systemic lupus erythematosus. Clinical correlation is required. Test Methodology: Multiplex flow immunoassay. C-Reactive Protein, Quantitative <0.3 mg/dL <0.9 [facility] Chromatin Qualitative Negative Negative [facility] Cyclic Citrullinated Peptide IgG Ab <15 Units <20 [facility] Cyclic Citrullinated Peptide Interp Negative Negative [facility] Estimated GFR (CKD-EPI) 95 mL/min/1.73m??? >=60 [facility] Comment on above: Estimated Glomerular Filtration Rate (eGFR) is calculated using the 2020 CKD-EPI creatinine equation. This equation utilizes serum creatinine, sex, and age as parameters. The creatinine assay has traceable calibration to isotope dilution-mass spectrometry. Refer to KDIGO guidelines for clinical interpretation. In patients with unstable renal function, e.g. those with acute kidney injury, the eGFR may not accurately reflect actual GFR. Immature Granulocyte # (Auto) <0.03 k/uL <0.10 [facility] MARIAA-1 Antibody Interpretation Negative Negative [facility] Comment on above: Anti-MARIAA-1 antibody i s used as an aid in diagnosis of polymyositis and dermatomyositis especially with pulmonary involvement. A negative result cannot rule out polymyositis or dermatomyositis. Clinical correlation is required.Test Methodology: Multiplex flow immunoassay. Miscellaneous Test 6 See comment Fir [facility] Comment on above: Not Applicable. Miscellaneous Test Comment Reviewed by Dr. Shaheen Wilburn MD [facility] Protein Electrophoresis Note No definitive M protein is identified on protein electrophoresis. No definitive M protein is identified on protein electrophor esis. [facility] INSTRUCTOR WATCH ASSEMBLY Antibody <0.2 AI <1.0 [facility] [employer] W[employer]SEM[employer] Antibody Interpretation Negative Negative [facility] Scl-70 (Scleroderma) Antibody <0.2 AI <1.0 [facility] Comment on above: Scl-70/Scleroderma a ntibody test is used as an aid in diagnosis of systemic sclerosis especially the diffuse cutaneous form. A negative result cannot rule out systemic sclerosis. The final interpretation should consider clinical picture and other test results such as anti-centromere antibody. Test Methodology: Multiplex flow immunoassay. Scl-70 Antibody Negative Negative [facility] SS-A Antibody Interpretation Negative Negative [facility] SS-B Antibody Interpretation Negative Negative [facility] Radiology Study observation (narrative) [facility] Nuclear membrane pores nucle ar Ab pattern [Titer] in Serum by Immunofluorescenceon 01-06-2024 Nuclear membrane pores nuclear Ab pattern IF (S) [Titer] Nuclear homogeneous [facility] Nucleated RBC Auto (Bld) [#/ Vol]on 01-06-2024 Nucleated RBC (Bld) [#/Vol] 10*3/uL <0.01 [facility] Nucleated erythrocytes [Pres ence] in Blood by Automated counton 01-06-2024 Nucleated RBC Auto Ql (Bld) 0.0 /100{WBC} [facility] PROTEIN ELECTROPHORESIS SERU M (P)on 01-06-2024 Albumin [Mass/Vol] 4.66 g/dL Normal 3.43-5.41 [facility] Comment on above: Order Comment: Speci men Type: BLOOD SPECIMENOrdering Facility: [facility] Address: [address] [place] [address] Performed By: #### L [id number] ####[facility] [id number] [address] [id number] [address] [place] Alpha 1 globulin Elph [Mass/Vol] 0.24 g/dL Normal 0.18-0.43 [facility] Comment on above: Order Comment: Speci men Type: BLOOD SPECIMENOrdering Facility: [facility] Address: [address] [place] [address] Performed By: #### L [id number] ####[facility] [id number] [place] [address] [place] Alpha 2 globulin Elph [Mass/Vol] 0.61 g/dL Normal 0.42-0.98 [facility] Comment on above: Order Comment: Speci men Type: BLOOD SPECIMENOrdering Facility: [facility] Address: [address] [place] [address] Performed By: #### L [id number] ####[facility] [id number] [place] [address] [place] Beta globulin Elph [Mass/Vol] 0.95 g/dL Normal 0.61-1.17 [facility] Comment on above: Order Comment: Speci men Type: BLOOD SPECIMENOrdering Facility: [facility] Address: [address] [place] [address] Performed By: #### L [id number] ####[facility] LABCLIA [id number] [place] [address] [place] Gamma globulin Elph [Mass/Vol] 0.94 g/dL Normal 0.53-1.51 [facility] Comment on above: Order Comment: Speci men Type: BLOOD SPECIMENOrdering Facility: [facility] Address: [address] [place] [address] Performed By: #### L [id number] ####[facility] LABCLIA [id number] [place] [address] [place] M-PROTEIN LOCATION Normal [facility] Comment on above: Order Comment: Speci men Type: BLOOD SPECIMENOrdering Facility: [facility] Address: [address] [place] [address] Result Comment: Not Applicable. Performed By: #### L [id number] ####[facility] [id number] [place] [address] [place] Protein Fractions [Interp] No definitive M protein is identified on protein electrophoresis. Normal No definitive M protein is identified on protein electrophor esis. [facility] Comment on above: Order Comment: Speci men Type: BLOOD SPECIMENOrdering Facility: [facility] Address: [address] [place] [address] Performed By: #### L [id number] ####[facility] [id number] [place] [address] [place] Protein.monoclonal Elph [Mass/Vol] 0.00 g/dL Normal <=0.00 [facility] Comment on above: Order Comment: Speci men Type: BLOOD SPECIMENOrdering Facility: [facility] Address: [address] [place] [address] Performed By: #### L [id number] ####[facility] [id number] [place] [address] [place] SPE STAFF REVIEW Reviewed by Dr. José Miguel Wilburn MD [facility] Comment on above: Order Comment: Speci men Type: BLOOD SPECIMENOrdering Facility: [facility] Address: [address] [place] [address] Performed By: #### L [id number] ####[facility] [id number] [place] [address] [place] Platelet mean volume Auto (B ld) [Entitic vol]on 01-06-2024 Platelet mean volume (Bld) [Entitic vol] 10.4 fL 9.0-12.7 [facility] Platelets Auto (Bld) [#/Vol] on 01-06-2024 Platelets (Bld) [#/Vol] 285 10*3/uL 150-400 [facility] Prot SerPl-mCncon 01-06-2024 Protein [Mass/Vol] 7.4 g/dL Normal 6.3-8.0 [facility] Comment on above: Order Comment: Speci men Type: BLOOD SPECIMENOrdering Facility: [facility] Address: [address] [place] [address] Performed By: #### 2 885-2 ####[facility] LABCLIA [id number] [place] [address] [place] Protein [Mass/volume] in Ser um or Plasmaon 01-06-2024 Protein [Mass/Vol] 7.7 g/dL 6.3-8.0 [place] RBC Auto (Bld) [#/Vol]on RBC (Bld) [#/Vol] 4.51 10*6/uL 3.90-5.20 [facility] RHEUMATOID FACTORon 01-06-20 Rheumatoid factor Qn NINF [facility] Rheumatoid fact SerPl-aCncon 01-06-2024 Rheumatoid factor Qn [IU]/mL Normal <16 [facility] Comment on above: Order Comment: Speci men Type: BLOOD SPECIMENOrdering Facility: [facility] Address: [address] [place] [address] Performed By: #### 2 157-6, 09542-5 ####[facility] [id number] [place] [address] [place] Ribonucleoprotein extractabl e nuclear Ab Qn (S)on 01-06-2024 ANTI-INSTRUCTOR WATCH ASSEMBLY QUAL Negative Normal Negative [facility] Comment on above: Order Comment: Speci men Type: BLOOD SPECIMENOrdering Facility: [facility] Address: [address] [place] [address] Performed By: #### 1 1565-9, 32974-7, 96840-9, 66419-0, 74689-7, 08813-2, 56687-3, 65736-8 ####[facility] [id number] [place] [address] [place] RIBOSOMAL INSTRUCTOR WATCH ASSEMBLY QUAL Negative Normal Negative [facility] Comment on above: Order Comment: Specyovany davis Type: BLOOD SPECIMENOrdering Facility: [facility] Address: [address] [place] [address] Result Comment: Anti -Ribosomal RNA (Ribosomal P) antibody is used as an aid in diagnosis of systemic autoimmune diseases especially systemic lupus erythematosus and mixed connective tissue disease. Cross-reactivity with Anti-english antibody is not uncommon. Clinical correlation is required. Test Methodology: Multiplex flow immunoassay. Performed By: #### 1 1565-9, 62189-5, 94699-9, 33253-4, 21202-7, 60749-5, 87746-1, 40219-5 ####[facility] [id number] [place] [address] [place] Ribosomal P Ab [Units/volume ] in Serumon 01-06-2024 Ribosomal P Ab Qn (S) Negative Negative [facility] Comment on above: Anti-Ribosomal RNA ( Ribosomal P) antibody is used as an aid in diagnosis of systemic autoimmune diseases especially systemic lupus erythematosus and mixed connective tissue disease. Cross-reactivity with Anti-english antibody is not uncommon. Clinical correlation is required. Test Methodology: Multiplex flow immunoassay. SCL-70 extractable nuclear I gG IA Qn (S)on 01-06-2024 SCLERODERMA AB QUAL Negative Normal Negative [facility] Comment on above: Order Comment: Donte davis Type: BLOOD SPECIMENOrdering Facility: [facility] Address: [address] [place] [address] Performed By: #### 1 1565-9, 03380-6, 45874-4, 83997-1, 76181-2, 11876-6, 52188-5, 90969-4 ####[facility] LABIA [id number] [place] [address] [place] SCLERODERMA IGG AB <0.2 Normal <1.0 [facility] Comment on above: Order Comment: Donte davis Type: BLOOD SPECIMENOrdering Facility: [facility] Address: [address] [place] [address] Result Comment: Scl- 70/Scleroderma antibody test is used as an aid in diagnosis of systemic sclerosis especially the diffuse cutaneous form. A negative result cannot rule out systemic sclerosis. The final interpretation should consider clinical picture and other test results such as anti-centromere antibody. Test Methodology: Multiplex flow immunoassay. Performed By: #### 1 1565-9, 53166-9, 50941-7, 64301-2, 11764-2, 93106-3, 28836-6, 31082-4 ####[facility] LABCLIA [id number] [place] [id number] [place] Serum Mariaa-1 extractable nucle ar antibody assay (units/volume)on 01-06-2024 Mariaa-1 extractable nuclear Ab Qn (S) <0.2 AI <1.0 [facility] Serum Sjogrens syndrome-A ex tractable nuclear antibody assay (units/volume)on 01-06-2024 Sjogrens syndrome-A extractable nuclear Ab Qn (S) 0.3 AI <1.0 [facility] Comment on above: Test Methodology: Mu ltiplex flow immunoassay. Serum Sjogrens syndrome-B ex tractable nuclear antibody assay (units/volume)on 01-06-2024 Sjogrens syndrome-B extractable nuclear Ab Qn (S) <0.2 AI <1.0 [facility] Comment on above: Anti-SSB (anti-La) a ntibody is used as an aid in diagnosis of a variety of systemic autoimmune diseases, especially for Sjogren's syndrome and systemic lupus erythematosus. Clinical correlation is required. Test Methodology: Multiplex flow immunoassay. Serum English extractable nucl ear antigen (DONALD) antibody assay (units/volume)on 01-06-2024 English extractable nuclear Ab Qn (S) <0.2 AI <1.0 [facility] Serum centromere protein B a ntibody assay (units/volume)on 01-06-2024 Centromere protein B Ab Qn (S) <0.2 AI <1.0 [facility] Comment on above: Anti-centromere anti body is used as in aid in diagnosis of systemic sclerosis. Clinical correlation is required. Test Methodology: Multiplex flow immunoassay. Serum nuclear antibody titer on 01-06-2024 Nuclear Ab (S) [Titer] Positive Abnormal Negative [facility] Comment on above: Anti-nuclear antibod y test is used as an aid in diagnosis of systemic autoimmune diseases. Where positive and clinically warranted, follow-up using disease-specific testing is recommended. Low positive titers are not uncommon with advanced age, certain chronic infections, and malignancies among others.Test methodology: Indirect fluorescence immunoassay (IFA) using HEp-2 cells.1:160 Serum or plasma alpha 1 glob ulin measurement by electrophoresis (mass/volume)on 01-06-2024 Alpha 1 globulin Elph [Mass/Vol] 0.24 g/dL 0.18-0.43 [facility] Serum or plasma alpha 2 glob ulin measurement by electrophoresis (mass/volume)on 01-06-2024 Alpha 2 globulin Elph [Mass/Vol] 0.61 g/dL 0.42-0.98 [facility] Serum or plasma anion gap de terminationon 01-06-2024 Anion gap [Moles/Vol] 15 mmol/L 9-18 [facility] Serum or plasma beta globuli n measurement by electrophoresis (mass/volume)on 01-06-2024 Beta globulin Elph [Mass/Vol] 0.95 g/dL 0.61-1.17 [facility] Serum or plasma calcidiol me asurement (mass/volume)on 01-06-2024 25-hydroxyvitamin D3 [Mass/Vol] 27.4 ng/mL Low 31.0-80.0 [facility] Comment on above: Classification of 25 [place] Vitamin D status: Deficiency/Insufficiency: < or = 30 ng/ml.Sufficiency/Optimal Levels: 31-80 ng/mLToxicity: > 100 ng/mL. Test performed by chemiluminescent immunoassay. Serum or plasma chromatin an tibody assay (units/volume)on 01-06-2024 Chromatin Ab Qn <0.2 AI <1.0 [facility] Comment on above: Test Methodology: Mu ltiplex flow immunoassay. Serum or plasma complement C 3 measurement (mass/volume)on 01-06-2024 Complement C3 [Mass/Vol] 155 mg/dL 86-166 [facility] Serum or plasma complement C 4 measurement (mass/volume)on 01-06-2024 Complement C4 [Mass/Vol] 25 mg/dL 13-46 [facility] Serum or plasma gamma globul in measurement by electrophoresis (mass/volume)on 01-06-2024 Gamma globulin Elph [Mass/Vol] 0.94 g/dL 0.53-1.51 [facility] Serum or plasma rheumatoid f actor measurement (units/volume)on 01-06-2024 Rheumatoid factor Qn [IU]/mL <16 [facility] Sjogrens syndrome-A extracta ble nuclear Ab Qn (S)on 01-06-2024 SSA ANTIBODY QUAL Negative Normal Negative [facility] Comment on above: Order Comment: Speci men Type: BLOOD SPECIMENOrdering Facility: [facility] Address: [address] [place] [address] Performed By: #### 1 1565-9, 26691-8, 42856-6, 20642-0, 21955-5, 47094-4, 13064-9, 70597-4 ####[facility] [id number] [place] [address] [place] Sjogrens syndrome-B extracta ble nuclear Ab Qn (S)on 01-06-2024 SSB ANTIBODY QUAL Negative Normal Negative [facility] Comment on above: Order Comment: Speci men Type: BLOOD SPECIMENOrdering Facility: [facility] Address: [address] [place] [address] Performed By: #### 1 1565-9, 43331-5, 24546-1, 15198-5, 25462-4, 24439-3, 62213-5, 42222-9 ####[facility] [id number] [place] [address] [place] English extractable nuclear Ig G Qn (S)on 01-06-2024 SM ANTIBODY QUAL Negative Normal Negative [facility] Comment on above: Order Comment: Speci men Type: BLOOD SPECIMENOrdering Facility: [facility] Address: [address] [place] [address] Result Comment: Anti -Sm (English) antibody is used as an aid in diagnosis of systemic lupus erythematosus and its presence is associated with renal disease. A negative result cannot rule out systemic lupus erythematosus. Clinical correlation is required. Test Methodology: Multiplex flow immunoassay. Performed By: #### 1 1565-9, 83945-0, 37722-7, 74222-3, 45678-6, 10855-6, 24333-2, 95786-9 ####[facility] LABCLIA [id number] [address] [place] UrinalysisOrdered By: Faby Lawson on 01-06-2024 Urinalysis complete panel (U) [facility] Urinalysis complete panel (U )on 01-06-2024 Bacteria LM.HPF (Urine sed) [#/Area] Negative Negative /HPF [facility] Bilirubin Ql (U) Negative Negative [facility] Clarity (Unsp spec) Clear Clear [facility] Color (U) Yellow Yellow [facility] Epithelial cells LM.HPF (Urine sed) [#/Area] None Seen /HPF [facility] Glucose Test strip (U) [Mass/Vol] Negative Negative [facility] Hemoglobin Ql (U) Negative Negative [facility] Hyaline casts (Urine sed) [#/Area] 0 /[LPF] 0 /LPF [facility] Interpretation and review of laboratory results Abnormal [facility] Ketones Ql (U) Negative Negative [facility] Leukocyte esterase Test strip Ql (U) 1+ Abnormal Negative [facility] Nitrite Ql (U) Negative Negative [facility] pH (U) 7.0 [pH] NINF - 8.5 [facility] Protein (U) [Mass/Vol] Negative Negative [facility] RBC LM.HPF (Urine sed) [#/Area] 0-2 /HPF 0-2 /HPF [facility] Specific gravity (U) [Rel density] 1.016 1.005 - 1.030 [facility] Urobilinogen Ql (U) 0.2 EU/dL 0.2-1.0 EU/dL [facility] WBC LM.HPF (Urine sed) [#/Area] 0-5 /HPF 0-5 /HPF [facility] This test was develo ped and its performance characteristics determined by [facility]'s Iraj Dominguez [facility] Pathology and Laboratory Medicine [place] ([facility]). It has not been cleared or approved by the FDA. -[facility] is regulated under CLIA as qualified to perform high-complexity testing. This test is used for clinical purposes. It should not be regarded as investigational or for research. [facility] Bacteria LM.HPF (Urine sed) [#/Area] Negative Normal Negative [facility] Comment on above: Order Comment: Speci men Type: URINE SPECIMENOrdering Facility: [facility] Address: [address] [place] [address] Performed By: #### 2 4356-8 ####[facility] [id number] [place] [address] [place] Bilirubin Ql (U) Negative Normal Negative [facility] Comment on above: Order Comment: Speci men Type: URINE SPECIMENOrdering Facility: [facility] Address: [address] [place] [address] Performed By: #### 2 4356-8 ####[facility]IA [id number] [place] [address] [place] Clarity (Unsp spec) Clear Normal Clear [facility] Comment on above: Order Comment: Speci men Type: URINE SPECIMENOrdering Facility: [facility] Address: [address] [place] [address] Performed By: #### 2 4356-8 ####[facility] LABCLIA [id number] [place] [address] [place] Color (U) Yellow Normal Yellow [facility] Comment on above: Order Comment: Speci men Type: URINE SPECIMENOrdering Facility: [facility] Address: [address] [place] [address] Performed By: #### 2 4356-8 ####[facility] LABCLIA [id number] [place] [address] [place] Epithelial cells LM.HPF (Urine sed) [#/Area] None Seen Normal [facility] Comment on above: Order Comment: Speci men Type: URINE SPECIMENOrdering Facility: [facility] Address: [address] [place] [address] Performed By: #### 2 4356-8 ####[facility] LABCLIA [id number] [place] [address] [place] Glucose Test strip (U) [Mass/Vol] Negative Normal Negative [facility] Comment on above: Order Comment: Speci men Type: URINE SPECIMENOrdering Facility: [facility] Address: [address] [place] [address] Performed By: #### 2 4356-8 ####[facility] LABCLIA [id number] [place] [address] [place] Hemoglobin Ql (U) Negative Normal Negative [facility] Comment on above: Order Comment: Speci men Type: URINE SPECIMENOrdering Facility: [facility] Address: [address] [place] [address] Performed By: #### 2 4356-8 ####[facility] LABCLIA [id number] [place] [address] [place] Hyaline casts (Urine sed) [#/Area] 0 /[LPF] Normal 0 /LPF [facility] Comment on above: Order Comment: Speci men Type: URINE SPECIMENOrdering Facility: [facility] Address: [address] [place] [address] Performed By: #### 2 4356-8 ####[facility] LABCLIA [id number] [place] [address] [place] Ketones Ql (U) Negative Normal Negative [facility] Comment on above: Order Comment: Speci men Type: URINE SPECIMENOrdering Facility: [facility] Address: [address] [place] [address] Performed By: #### 2 4356-8 ####[facility] LABCLIA [id number] [place] [address] [place] Leukocyte esterase Test strip Ql (U) 1+ Abnormal Negative [facility] Comment on above: Order Comment: Speci men Type: URINE SPECIMENOrdering Facility: [facility] Address: [address] [place] [address] Performed By: #### 2 4356-8 ####[facility] [id number] [place] [address] [place] Nitrite Ql (U) Negative Normal Negative [facility] Comment on above: Order Comment: Speci men Type: URINE SPECIMENOrdering Facility: [facility] Address: [address] [place] [address] Performed By: #### 2 4356-8 ####[facility] [id number] [place] [address] [place] pH (U) 7.0 [pH] Normal <8.5 [facility] Comment on above: Order Comment: Speci men Type: URINE SPECIMENOrdering Facility: [facility] Address: [address] [place] [address] Performed By: #### 2 4356-8 ####[facility] [id number] [place] [address] [place] Protein (U) [Mass/Vol] Negative Normal Negative [facility] Comment on above: Order Comment: Speci men Type: URINE SPECIMENOrdering Facility: [facility] Address: [address] [place] [address] Performed By: #### 2 4356-8 ####[facility] [id number] [place] [address] [place] RBC LM.HPF (Urine sed) [#/Area] 0-2 /HPF Normal 0-2 /HPF [facility] Comment on above: Order Comment: Speci men Type: URINE SPECIMENOrdering Facility: [facility] Address: [address] [place] [address] Performed By: #### 2 4356-8 ####[facility] [id number] [place] [address] [place] Specific gravity (U) [Rel density] 1.016 Normal 1.005-1.030 [facility] Comment on above: Order Comment: Speci men Type: URINE SPECIMENOrdering Facility: [facility] Address: [address] [place] [address] Performed By: #### 2 4356-8 ####[facility] [id number] [place] [address] [place] Urobilinogen Ql (U) 0.2 EU/dL Normal 0.2-1.0 EU/dL [facility] Comment on above: Order Comment: Speci men Type: URINE SPECIMENOrdering Facility: [facility] Address: [address] [place] [address] Performed By: #### 2 4356-8 ####[facility] [id number] [place] [address] [place] WBC LM.HPF (Urine sed) [#/Area] 0-5 /HPF Normal 0-5 /HPF [facility] Comment on above: Order Comment: Speci men Type: URINE SPECIMENOrdering Facility: [facility] Address: [address] [place] [address] Performed By: #### 2 4356-8 ####[facility] [id number] [place] [id number] [place] XR CERVICAL 4V AP/LAT/OBLon 01-06-2024 XR CERVICAL 4V AP/LAT/OBL * * *Final Report* * * DATE OF EXAM: Jan 06 2024 11:04AM [id number] [id number] - XR CERVICAL 4V AP/LAT/OBL / PROCEDURE REASON: Polyarthralgia * * * * Physician Interpretation * * * * Cervical spine x-rays: HISTORY: Neck pain. TECHNIQUE: AP, lateral and bilateral oblique views were performed. COMPARISON: None RESULT: Counting reference: Craniocervical junction. Anatomic variants: None. Cervical disc spaces are maintained. Facet hypertrophic changes are noted on the LEFT at C3-C4 and C4-C5. Uncovertebral hypertrophic changes are noted on the RIGHT at C4-C5. IMPRESSION: 1. Mild cervical spondylosis. 2. Cervical spine degenerative facet arthrosis. Fermentologist: [facility] Transcribe Date/Time: Jan 06 2024 12:16P Dictated by : BARBARA KIRBY MD This examination was interpreted and the report reviewed and electronically signed by: BARBARA KIRBY MD on Jan 06 2024 12:17PM EST [id number] Normal [facility] XR Cervical spine AP and Lat eral and obliqueon 01-06-2024 IMPRESSION: 1. Mild cervical spondylosis. 2. Cervical spine degenerative facet arthrosis. Fermentologist: [facility] Transcribe Date/Time: Jan 06 2024 12:16P Dictated by : BARBARA KIRBY MD This examination was interpreted and the report reviewed and electronically signed by: BARBARA KIRBY MD on Jan 06 2024 12:17PM EST DIVISION OF RADIOLOGY * * *Final Report* * * DATE OF EXAM: Jan 06 2024 11:04AM [id number] [id number] - XR CERVICAL 4V AP/LAT/OBL / PROCEDURE REASON: Polyarthralgia * * * * Physician Interpretation * * * * Cervical spine x-rays: HISTORY: Neck pain. TECHNIQUE: AP, lateral and bilateral oblique views were performed. COMPARISON: None RESULT: Counting reference: Craniocervical junction. Anatomic variants: None. Cervical disc spaces are maintained. Facet hypertrophic changes are noted on the LEFT at C3-C4 and C4-C5. Uncovertebral hypertrophic changes are noted on the RIGHT at C4-C5. DIVISION OF RADIOLOGY Provider, [facility] - 01/06/2024 * * *Final Report* * * DATE OF EXAM: Jan 06 2024 11:04AM LNX [id number] - XR CERVICAL 4V AP/LAT/OBL / PROCEDURE REASON: Polyarthralgia * * * * Physician Interpretation * * * * Cervical spine x-rays: HISTORY: Neck pain. TECHNIQUE: AP, lateral and bilateral oblique views were performed. COMPARISON: None RESULT: Counting reference: Craniocervical junction. Anatomic variants: None. Cervical disc spaces are maintained. Facet hypertrophic changes are noted on the LEFT at C3-C4 and C4-C5. Uncovertebral hypertrophic changes are noted on the RIGHT at C4-C5. IMPRESSION IMPRESSION: 1. Mild cervical spondylosis. 2. Cervical spine degenerative facet arthrosis. Fermentologist: [facility] Transcribe Date/Time: Jan 06 2024 12:16P Dictated by : BARBARA KIRBY MD This examination was interpreted and the report reviewed and electronically signed by: BARBARA KIRBY MD on Jan 06 2024 12:17PM EST [facility] XR FOOT 3V AP/LAT/OBL BILon 01-06-2024 XR FOOT 3V AP/LAT/OBL MARY * * *Final Report* * * DATE OF EXAM: Jan 06 2024 11:04AM LNX 5555 - XR FOOT 3V AP/LAT/OBL MARY / PROCEDURE REASON: Polyarthralgia * * * * Physician Interpretation * * * * Bilateral foot x-rays: HISTORY: Pain TECHNIQUE: 3 views of both feet are reviewed. COMPARISON: None RESULT: Osseous structures are intact, without evidence of an acute fracture. On the RIGHT, joint spaces are preserved. No osseous erosions are demonstrated. On the LEFT, joint spaces are preserved. No osseous erosions are demonstrated. IMPRESSION: 1. No significant arthropathy demonstrated. Fermentologist: [facility] Transcribe Date/Time: Jan 06 2024 12:15P Dictated by : BARBARA KIRBY MD This examination was interpreted and the report reviewed and electronically signed by: BARBARA KIRBY MD on Jan 06 2024 12:16PM EST [id number] Normal [facility] XR Foot - bilateral AP and L ateral and obliqueon 01-06-2024 IMPRESSION: 1. No significant arthropathy demonstrated. Fermentologist: [facility] Transcribe Date/Time: Jan 06 2024 12:15P Dictated by : BARBARA KIRBY MD This examination was interpreted and the report reviewed and electronically signed by: BARBARA KIRBY MD on Jan 06 2024 12:16PM EST DIVISION OF RADIOLOGY * * *Final Report* * * DATE OF EXAM: Jan 06 2024 11:04AM [id number] [id number] - XR FOOT 3V AP/LAT/OBL MARY / PROCEDURE REASON: Polyarthralgia * * * * Physician Interpretation * * * * Bilateral foot x-rays: HISTORY: Pain TECHNIQUE: 3 views of both feet are reviewed. COMPARISON: None RESULT: Osseous structures are intact, without evidence of an acute fracture. On the RIGHT, joint spaces are preserved. No osseous erosions are demonstrated. On the LEFT, joint spaces are preserved. No osseous erosions are demonstrated. DIVISION OF RADIOLOGY Provider, [facility] * * *Final Report* * * DATE OF EXAM: Jan 06 2024 11:04AM LNX 5555 - XR FOOT 3V AP/LAT/OBL MARY / PROCEDURE REASON: Polyarthralgia * * * * Physician Interpretation * * * * Bilateral foot x-rays: HISTORY: Pain TECHNIQUE: 3 views of both feet are reviewed. COMPARISON: None RESULT: Osseous structures are intact, without evidence of an acute fracture. On the RIGHT, joint spaces are preserved. No osseous erosions are demonstrated. On the LEFT, joint spaces are preserved. No osseous erosions are demonstrated. IMPRESSION IMPRESSION: 1. No significant arthropathy demonstrated. Fermentologist: [facility] Transcribe Date/Time: Jan 06 2024 12:15P Dictated by : BARBARA KIRBY MD This examination was interpreted and the report reviewed and electronically signed by: BARBARA KIRBY MD on Jan 06 2024 12:16PM [facility] XR HAND 3V PA/LAT/OBL BILon 01-06-2024 XR HAND 3V PA/LAT/OBL MARY * * *Final Report* * * DATE OF EXAM: Jan 06 2024 11:04AM LNX 5556 - XR HAND 3V PA/LAT/OBL MARY / PROCEDURE REASON: Polyarthralgia * * * * Physician Interpretation * * * * Bilateral hand x-rays: HISTORY: Pain TECHNIQUE: 3 views of both hands were performed. RESULT: Osseous structures are intact, without evidence of an acute fracture. On the RIGHT, joint spaces are preserved. Small osteophytes are present at the first carpometacarpal joint. No osseous erosions are demonstrated. On the LEFT, joint spaces are preserved. Small osteophytes are present at the first carpometacarpal joint. No osseous erosions are demonstrated. IMPRESSION: 1. Mild degenerative arthrosis of both hands. [facility] Transcribe Date/Time: Jan 06 2024 12:18P Dictated by : BARBARA KIRBY MD This examination was interpreted and the report reviewed and electronically signed by: BARBARA KIRBY MD on Jan 06 2024 12:19PM EST [id number] Normal [facility] XR Hand - bilateral PA and L ateral and Obliqueon 01-06-2024 IMPRESSION: 1. Mild degenerative arthrosis of both hands. Fermentologist: [facility] Transcribe Date/Time: Jan 06 2024 12:18P Dictated by : BARBARA KIRBY MD This examination was interpreted and the report reviewed and electronically signed by: BARBARA KIRBY MD on Jan 06 2024 12:19PM EST DIVISION OF RADIOLOGY * * *Final Report* * * DATE OF EXAM: Jan 06 2024 11:04AM LNX 5556 - XR HAND 3V PA/LAT/OBL MARY / PROCEDURE REASON: Polyarthralgia * * * * Physician Interpretation * * * * Bilateral hand x-rays: HISTORY: Pain TECHNIQUE: 3 views of both hands were performed. RESULT: Osseous structures are intact, without evidence of an acute fracture. On the RIGHT, joint spaces are preserved. Small osteophytes are present at the first carpometacarpal joint. No osseous erosions are demonstrated. On the LEFT, joint spaces are preserved. Small osteophytes are present at the first carpometacarpal joint. No osseous erosions are demonstrated. DIVISION OF RADIOLOGY Provider, [facility] 01/06/[facility]24 * * *Final Report* * * DATE OF EXAM: Jan 06 2024 11:04AM LNX 5556 - XR HAND 3V PA/LAT/OBL MARY / PROCEDURE REASON: Polyarthralgia * * * * Physician Interpretation * * * * Bilateral hand x-rays: HISTORY: Pain TECHNIQUE: 3 views of both hands were performed. RESULT: Osseous structures are intact, without evidence of an acute fracture. On the RIGHT, joint spaces are preserved. Small osteophytes are present at the first carpometacarpal joint. No osseous erosions are demonstrated. On the LEFT, joint spaces are preserved. Small osteophytes are present at the first carpometacarpal joint. No osseous erosions are demonstrated. IMPRESSION IMPRESSION: 1. Mild degenerative arthrosis of both hands. Fermentologist: [facility] Transcribe Date/Time: Jan 06 2024 12:18P Dictated by : BARBARA KIRBY MD This examination was interpreted and the report reviewed and electronically signed by: BARBARA KIRBY MD on Jan 06 2024 12:19PM EST [facility] XR KNEE 4V AP/PA/LAT/MERCH B NMon 01-06-2024 XR KNEE 4V AP/PA/LAT/MERCH MARY * * *Final Report* * * DATE OF EXAM: Jan 06 2024 11:04AM LNX [id number] - XR KNEE 4V AP/PA/LAT/MERCH MARY / PROCEDURE REASON: Polyarthralgia * * * * Physician Interpretation * * * * Bilateral knee x-rays: HISTORY: Pain TECHNIQUE: 4 views of both knees were performed. COMPARISON: None RESULT: Osseous structures are intact, without evidence of an acute fracture. On the RIGHT, joint spaces are preserved. There is no evidence of a joint effusion. On the LEFT, joint spaces are preserved. There is no evidence of a joint effusion. IMPRESSION: 1. No significant knee arthropathy demonstrated. Fermentologist: [facility] Transcribe Date/Time: Jan 06 2024 12:19P Dictated by : BARBARA KIRBY MD This examination was interpreted and the report reviewed and electronically signed by: BARBARA KIRBY MD on Jan 06 2024 12:19PM EST [id number] [facility] XR Knee - bilateral 4 Viewso n 01-06-2024 IMPRESSION: 1. No significant knee arthropathy demonstrated. Fermentologist: [facility] Transcribe Date/Time: Jan 06 2024 12:19P Dictated by : BARBARA KIRBY MD This examination was interpreted and the report reviewed and electronically signed by: BARBARA KIRBY MD on Jan 06 2024 12:19PM [facility] DIVISION OF RADIOLOGY * * *Final Report* * * DATE OF EXAM: Jan 06 2024 11:04AM [id number] [id number] - XR KNEE 4V AP/PA/LAT/MERCH MARY / PROCEDURE REASON: Polyarthralgia * * * * Physician Interpretation * * * * Bilateral knee x-rays: HISTORY: Pain TECHNIQUE: 4 views of both knees were performed. COMPARISON: None RESULT: Osseous structures are intact, without evidence of an acute fracture. On the RIGHT, joint spaces are preserved. There is no evidence of a joint effusion. On the LEFT, joint spaces are preserved. There is no evidence of a joint effusion. DIVISION OF RADIOLOGY Provider, Mayda Jonniechris [facility] - 01/06/2024 * * *Final Report* * * DATE OF EXAM: Jan 06 2024 11:04AM [id number] [id number] - XR KNEE 4V AP/PA/LAT/MERCH MARY / PROCEDURE REASON: Polyarthralgia * * * * Physician Interpretation * * * * Bilateral knee x-rays: HISTORY: Pain TECHNIQUE: 4 views of both knees were performed. COMPARISON: None RESULT: Osseous structures are intact, without evidence of an acute fracture. On the RIGHT, joint spaces are preserved. There is no evidence of a joint effusion. On the LEFT, joint spaces are preserved. There is no evidence of a joint effusion. IMPRESSION IMPRESSION: 1. No significant knee arthropathy demonstrated. [facility] Transcribe Date/Time: Jan 06 2024 12:19P Dictated by : BARBARA KIBRY MD This examination was interpreted and the report reviewed and electronically signed by: BARBARA KIRBY MD on Jan 06 2024 12:19PM [facility] XR LUMBAR 3V AP/LAT/L5-S1on 01-06-2024 XR LUMBAR 3V AP/LAT/L5-S1 * * *Final Report* * * DATE OF EXAM: Jan 06 2024 11:04AM [id number] [id number] - XR LUMBAR 3V AP/LAT/L5-S1 / PROCEDURE REASON: Polyarthralgia * * * * Physician Interpretation * * * * Lumbar spine x-rays: HISTORY: Pain TECHNIQUE: AP, lateral and L5-S1 spot films were obtained. COMPARISON: None RESULT: Counting reference: Lumbosacral junction. For the purposes of this report, L4-L5 is considered the level of the iliac crest and assume there are 5 lumbar-type vertebrae. Anatomic variant: None. Mild disc space narrowing and osteophytosis are present at the L1-L2 level. The remaining lumbar disc spaces are maintained. Facet hypertrophic changes are demonstrated bilaterally at L4-L5 and L5-S1. IMPRESSION: 1. L1-L2 degenerative disc disease. 2. Lower lumbar spine degenerative facet arthrosis. [facility] Transcribe Date/Time: Jan 06 2024 12:14P Dictated by : BARBARA KRIBY MD This examination was interpreted and the report reviewed and electronically signed by: BARBARA KIRBY MD on Jan 06 2024 12:15PM EST [id number] [facility] XR Lumbar spine 3 Viewson IMPRESSION: 1. L1-L2 degenerative disc disease. 2. Lower lumbar spine degenerative facet arthrosis. Fermentologist: [facility] Transcribe Date/Time: Jan 06 2024 12:14P Dictated by : BARBARA KIRBY MD This examination was interpreted and the report reviewed and electronically signed by: BARBARA KIRBY MD on Jan 06 2024 12:15PM EST DIVISION OF RADIOLOGY * * *Final Report* * * DATE OF EXAM: Jan 06 2024 11:04AM [id number] [id number] - XR LUMBAR 3V AP/LAT/L5-S1 / PROCEDURE REASON: Polyarthralgia * * * * Physician Interpretation * * * * Lumbar spine x-rays: HISTORY: Pain TECHNIQUE: AP, lateral and L5-S1 spot films were obtained. COMPARISON: None RESULT: Counting reference: Lumbosacral junction. For the purposes of this report, L4-L5 is considered the level of the iliac crest and assume there are 5 lumbar-type vertebrae. Anatomic variant: None. Mild disc space narrowing and osteophytosis are present at the L1-L2 level. The remaining lumbar disc spaces are maintained. Facet hypertrophic changes are demonstrated bilaterally at L4-L5 and L5-S1. DIVISION OF RADIOLOGY Provider, [facility] - 01/06/2024 * * *Final Report* * * DATE OF EXAM: Jan 06 2024 11:04AM LNX [id number] - XR LUMBAR 3V AP/LAT/L5-S1 / PROCEDURE REASON: Polyarthralgia * * * * Physician Interpretation * * * * Lumbar spine x-rays: HISTORY: Pain TECHNIQUE: AP, lateral and L5-S1 spot films were obtained. COMPARISON: None RESULT: Counting reference: Lumbosacral junction. For the purposes of this report, L4-L5 is considered the level of the iliac crest and assume there are 5 lumbar-type vertebrae. Anatomic variant: None. Mild disc space narrowing and osteophytosis are present at the L1-L2 level. The remaining lumbar disc spaces are maintained. Facet hypertrophic changes are demonstrated bilaterally at L4-L5 and L5-S1. IMPRESSION IMPRESSION: 1. L1-L2 degenerative disc disease. 2. Lower lumbar spine degenerative facet arthrosis. Fermentologist: [facility] Transcribe Date/Time: Jan 06 2024 12:14P Dictated by : BARBARA KIRBY MD This examination was interpreted and the report reviewed and electronically signed by: BARBARA KIRBY MD on Jan 06 2024 12:15PM EST [facility] XR Lumbar spine 3 ViewsOrder ed By: [facility] Provider on 01-06-2024 [facility] XR SI JTS 2V AP PELV/FERGUSO Non 01-06-2024 XR SI JTS 2V AP PELV/HERNANDEZ * * *Final Report* * * DATE OF EXAM: Jan 06 2024 11:04AM [id number] [id number] - XR SI JTS 2V AP PELV/HERNANDEZ / PROCEDURE REASON: Polyarthralgia * * * * Physician Interpretation * * * * Sacroiliac joint x-rays: HISTORY: Pain. TECHNIQUE: AP and Hernandez views were obtained. RESULT: Osseous structures are intact, without evidence of an acute fracture. The sacroiliac joint spaces are maintained. IMPRESSION: 1. No evidence of sacroiliitis. Fermentologist: [facility] Transcribe Date/Time: Jan 06 2024 12:13P Dictated by : BARBARA KIRBY MD This examination was interpreted and the report reviewed and electronically signed by: BARBARA KIRBY MD on Jan 06 2024 12:13PM EST [id number] [facility] XR Sacroiliac Joint Viewson 01-06-2024 IMPRESSION: 1. No evidence of sacroiliitis. [facility] Transcribe Date/Time: Jan 06 2024 12:13P Dictated by : BARBARA KIRBY MD This examination was interpreted and the report reviewed and electronically signed by: BARBARA KIRBY MD on Jan 06 2024 12:13PM EST DIVISION OF RADIOLOGY * * *Final Report* * * DATE OF EXAM: Jan 06 2024 11:04AM LNX [id number] - XR SI JTS 2V AP PELV/HERNANDEZ / PROCEDURE REASON: Polyarthralgia * * * * Physician Interpretation * * * * Sacroiliac joint x-rays: HISTORY: Pain. TECHNIQUE: AP and Hernandez views were obtained. RESULT: Osseous structures are intact, without evidence of an acute fracture. The sacroiliac joint spaces are maintained. DIVISION OF RADIOLOGY Provider, [facility] Luiz [facility] - 01/06/2024 * * *Final Report* * * DATE OF EXAM: Jan 06 2024 11:04AM LNX [id number] - XR SI JTS 2V AP PELV/HERNANDEZ / PROCEDURE REASON: Polyarthralgia * * * * Physician Interpretation * * * * Sacroiliac joint x-rays: HISTORY: Pain. TECHNIQUE: AP and Hernandez views were obtained. RESULT: Osseous structures are intact, without evidence of an acute fracture. The sacroiliac joint spaces are maintained. IMPRESSION IMPRESSION: 1. No evidence of sacroiliitis. Fermentologist: [facility] Transcribe Date/Time: Jan 06 2024 12:13P Dictated by : BARBARA KIRBY MD This examination was interpreted and the report reviewed and electronically signed by: BARBARA KIRBY MD on Jan 06 2024 12:13PM [facility] cCP IgG SerPl-aCncon 024 Cyclic citrullinated peptide IgG Qn <15 Normal <20 [facility] Comment on above: Order Comment: Donte davis Type: BLOOD SPECIMENOrdering Facility: [facility] Address: [address] [place] [address] Performed By: #### 3 [id number] ####[facility] LABCLIA [id number] [place] [address] [place] dsDNA Ab Ser Ql CLIFon 01-05 DNA double strand Ab IF Crithidia luciliae Ql (S) Negative Normal Negative [facility] Comment on above: Order Comment: Donte davis Type: BLOOD SPECIMENOrdering Facility: [facility] Address: [address] [place] [address] Result Comment: Crit hidia luciliae assay is used as an aid in diagnosis of systemic lupus erythematosus (SLE). A negative result cannot rule out SLE. Low positive titers may be seen with other systemic autoimmune diseases. Clinical correlation is required. Performed By: #### 6 457-6, 83080-7, 1988-10 ####[facility] LABCLIA [id number] [facility] [id number] [id number] [place] Basophils Auto (Bld) [#/Vol] on 10-16-2023 Basophils (Bld) [#/Vol] 0.1 10 3/uL 0.0-0.1 [facility] Basophils/100 WBC Auto (Bld) on 10-16-2023 Basophils/100 WBC (Bld) 2.0 % 0.2-2.0 [facility] Centriole Ab IF (S) [Titer]o n 10-16-2023 Anti-Nuclear Ab Centriole Pattern TNP . [facility] Centromere Ab IF (S) [Titer] on 10-16-2023 Anti-Nuclear Ab Centromere Pattern TNP . [facility] Cholesterol in LDL Calc [Mas s/Vol]on 10-16-2023 Cholesterol in LDL [Mass/Vol] 99.0 mg/dL [facility] Comment on above: <100 mg/dl [id number] 0-129 mg/dl NEAR OR ABOVE [id number] mg/dl BORDERLINE [id number] mg/dl HIGH>190 mg/dl VERY HIGH Cholesterol in VLDL Calc [Ma ss/Vol]on 10-16-2023 Cholesterol in VLDL [Mass/Vol] 13.2 mg/dL [facility] Eosinophils/100 WBC Auto (Bl d)on 10-16-2023 Eosinophils/100 WBC (Bld) 7.9 % 0.9-7.0 [facility] Erythrocyte distribution wid th Auto (RBC) [Ratio]on 10-16-2023 Erythrocyte distribution width (RBC) [Ratio] 11.7 % 11.0-15.0 [facility] Estimated glomerular filtrat ion rate (GFR) non- Americanon 10-16-2023 GFR/1.73 sq M.predicted among non-blacks MDRD (S/P/Bld) [Vol rate/Area] mL/min/{1.73_m2} >=60 [facility] Globulin Calc (S) [Mass/Vol] on 10-16-2023 Globulin (S) [Mass/Vol] 4.2 g/dL [facility] Hematocrit Auto (Bld) [Volum e fraction]on 10-16-2023 Hematocrit (Bld) [Volume fraction] 40.4 % 36.0-48.0 [facility] Hemoglobin [Mass/volume] in Bloodon 10-16-2023 Hemoglobin (Bld) [Mass/Vol] 13.4 g/dL 12.0-16.0 [facility] Homogenous nuclear Ab patter n (S) [Titer]on 10-16-2023 Anti-Nuclear Ab Homogeneous Pattern TNP . [facility] Iron binding capacity [Mass/ volume] in Serum or Plasmaon 10-16-2023 Iron binding capacity [Mass/Vol] 370.0 ug/dL 250.0-450.0 [facility] Iron saturation [Mass Fracti on] in Serum or Plasmaon 10-16-2023 Iron saturation [Mass fraction] 46.8 % [facility] Laboratory - Chemistry and C hemistry - challengeon 10-16-2023 Albumin [Mass/Vol] 4.0 g/dL 3.4-5.0 [place] ALP [Catalytic activity/Vol] 123 U/L 46-116 [facility] ALT [Catalytic activity/Vol] 56 U/L 14-59 [facility] AST [Catalytic activity/Vol] 29 U/L 15-37 [facility] Bilirubin [Mass/Vol] 0.6 mg/dL 0.2-1.0 [facility] Calcium [Mass/Vol] 9.6 mg/dL 8.5-10.1 [place] Chloride [Moles/Vol] 98 mmol/L 98-107 [facility] Cholesterol [Mass/Vol] 208 mg/dL <=200 [facility] Cholesterol in HDL [Mass/Vol] 96 mg/dL 40-60 [facility] Comment on above: > or =60 mg/dl - LOW CARDIOVASCULAR RISK<40 mg/dl - HIGH CARDIOVASCULAR RISK CO2 [Moles/Vol] 28.5 mmol/L 21.0-32.0 [facility] Creatinine [Mass/Vol] 0.73 mg/dL 0.55-1.02 [facility] GFR/1.73 sq M.predicted MDRD (S/P/Bld) [Vol rate/Area] mL/min/{1.73_m2} >=60 [facility] Glucose [Mass/Vol] 92 mg/dL 74-106 [place] Iron [Mass/Vol] 173.0 ug/dL 50.0-170.0 [facility] Potassium [Moles/Vol] 4.2 mmol/L 3.5-5.1 [facility] Protein [Mass/Vol] 8.2 g/dL 6.4-8.2 [place] Sodium [Moles/Vol] 137 mmol/L 136-145 [place] Triglyceride [Mass/Vol] 66 mg/dL <=150 [facility] TSH Qn 0.686 m[IU]/L 0.358-3.740 [facility] Urate [Mass/Vol] 4.1 mg/dL 2.6-6.0 [facility] Urea nitrogen [Mass/Vol] 8.0 mg/dL 7.0-18.0 [facility] Urea nitrogen/Creatinine [Mass ratio] 11.0 mg/mg [facility] Laboratory - Hematology and Cell countson 10-16-2023 ESR (Bld) [Velocity] 28 mm/h <=30 [facility] Immature granulocytes/100 WBC (Bld) 0.0 % 0.0-0.5 [facility] Leukocytes [#/volume] correc gudelia for nucleated erythrocytes in Blood by Automated counon 10-16-2023 WBC corrected for nucl RBC Auto (Bld) [#/Vol] 3.4 10 3/uL 4.0-11.0 [facility] Lymphocytes Auto (Bld) [#/Vo l]on 10-16-2023 Lymphocytes (Bld) [#/Vol] 1.6 10 3/uL 1.2-3.8 [facility] Lymphocytes/100 WBC Auto (Bl d)on 10-16-2023 Lymphocytes/100 WBC (Bld) 45.6 % 20.5-60.0 [facility] MCH Auto (RBC) [Entitic mass ]on 10-16-2023 MCH (RBC) [Entitic mass] 30.7 pg 26.7-34.0 [facility] MCHC Auto (RBC) [Mass/Vol]on 10-16-2023 MCHC (RBC) [Mass/Vol] 33.2 g/dL 29.9-35.2 [facility] MCV Auto (RBC) [Entitic vol] on 10-16-2023 MCV (RBC) [Entitic vol] 92.4 fL 81.0-99.0 [facility] Midbody Ab IF (S) [Titer]on 10-16-2023 Anti-Nuclear Ab Midbody Pattern TNP . [facility] Mitotic spindle apparatus Ab IF [Titer]on 10-16-2023 ALONDRA Spindle Apparatus Pattern TNP . [facility] Monocytes Auto (Bld) [#/Vol] on 10-16-2023 Monocytes (Bld) [#/Vol] 0.3 10 3/uL 0.3-0.8 [facility] Monocytes/100 WBC Auto (Bld) on 10-16-2023 Monocytes/100 WBC (Bld) 9.6 % 1.7-12.0 [facility] Neutrophils Auto (Bld) [#/Vo l]on 10-16-2023 Neutrophils (Bld) [#/Vol] 1.2 10 3/uL 1.4-6.5 [facility] Neutrophils/100 WBC Auto (Bl d)on 10-16-2023 Neutrophils/100 WBC (Bld) 34.9 % 43.0-75.0 [facility] No Panel Informationon 10-16 Anti-Nuclear Antibody Comment 2 Comment . [facility] Comment on above: Pattern Potential Di sease Association Homogeneous Systemic Lupus Erythematosus, Drug Induced Systemic Lupus Erythematosus, Chronic Autoimmune hepatitis, Juvenile Idiopathic Arthritis Speckled Sjogren Syndrome, Systemic Lupus Erythematosus, Subacute Cutaneous Lupus, Lupus, Congenital Heart Block, Mixed Connective Tissue Disease, Scleroderma-diffuse, Scleroderma-Autoimmune Myositis Overlap Syndrome, Systemic Lupus Rrhsmzqrkhqyx-Djugxwvjjac-Jtyqgyylql Myositis Overlap Syndrome, Systemic Autoimmune Rheumatic Disease, Undifferentiated Connective Tissue Disease Nucleolar Systemic Sclerosis, Scleroderma-Autoimmune Myositis Overlap Syndrome, Sjogren Syndrome, Raynaud phenomenon, Pulmonary Arterial Hypertension, Systemic Autoimmune Rheumatic Disease, Cancer Centromere Scleroderma-CREST, Limited Cutaneous SSc, Raynaud's Phenomenon, Primary Biliary Cholangitis Nuclear Dot Primary Biliary Cholangitis Nuclear Primary Biliary Cholangitis, AutoimmuneMembrane Hepatitis/Liver disease, Systemic Autoimmune Rheumatic Disease, Autoimmune Cytopenias, Linear Scleroderma, Antiphospholipid Syndrome Performed at: [facility] - [facility] [address] [place], [place] [id number] Director: Branden Melendez PhD, Phone: [phone] Lexus Duran melchorcarmencita Association Homogeneous Systemic Lupus Erythematosus, Drug Induced Systemic Lupus Erythematosus, Chronic Autoimmune hepatitis, Juvenile Idiopathic Arthritis Speckled Sjogren Syndrome, Systemic Lupus Erythematosus, Subacute Cutaneous Lupus, Lupus, Congenital Heart Block, Mixed Connective Tissue Disease, Scleroderma-diffuse, Scleroderma-Autoimmune Myositis Overlap Syndrome, Systemic Lupus Ctjncwnstfhcc-Llutahcyjcu-Jvjkhijwjd Myositis Overlap Syndrome, Systemic Autoimmune Rheumatic Disease, Undifferentiated Connective Tissue Disease Nucleolar Systemic Sclerosis, Scleroderma-Autoimmune Myositis Overlap Syndrome, Sjogren Syndrome, Raynaud phenomenon, Pulmonary Arterial Hypertension, Systemic Autoimmune Rheumatic Disease, Cancer Centromere Scleroderma-CREST, Limited Cutaneous SSc, Raynaud's Phenomenon, Primary Biliary Cholangitis Nuclear Dot Primary Biliary Cholangitis Nuclear Primary Biliary Cholangitis, AutoimmuneMembrane Hepatitis/Liver disease, Systemic Autoimmune Rheumatic Disease, Autoimmune Cytopenias, Linear Scleroderma, Antiphospholipid Syndrome Performed at: [facility] - [facility] [address] [id number] Director: Branden Melendez PhD, Phone: [phone] Anti-Streptolysin O Antibody 225.8 [IU]/mL 0.0-200.0 [facility] Comment on above: Performed at: [facility] [address] [id number] Director: Branden Melendez PhD, Phone: [phone] C-Reactive Protein, Quantitative <0.50 mg/dL <=0.50 [facility] Eosinophils # (Auto) 0.3 10 3/uL 0.0-0.7 [facility] Immature Granulocyte # (Auto) 0.00 10 3/uL 0.00-0.03 [facility] Nuclear Ab (S) [Titer]on Anti-Nuclear Antibody Screen Positive . [facility] Comment on above: Negative <1:80 Borde rline 1:80 Positive >1:80 Negative <1:80 Borde rline 1:80 Positive >1:80 Nuclear dots nuclear Ab lucie iraida IF (S) [Titer]on 10-16-2023 Anti-Nuclear Ab Nuclear Dot Pattern TNP . [facility] Nuclear membrane pores nucle ar Ab pattern IF (S) [Titer]on 10-16-2023 ALONDRA Nuclear Membrane Pattern TNP . [facility] Nucleolar nuclear Ab pattern (S) [Titer]on 10-16-2023 Anti-Nuclear Ab Nucleolar Pattern TNP . [facility] PCNA extractable nuclear Ab IF (S) [Titer]on 10-16-2023 Anti-Nuclear Ab PCNA Pattern TNP . [facility] Platelet mean volume Auto (B ld) [Entitic vol]on 10-16-2023 Platelet mean volume (Bld) [Entitic vol] 10.4 fL 9.5-13.5 [facility] Platelets Auto (Bld) [#/Vol] on 10-16-2023 Platelets (Bld) [#/Vol] 301 10 3/uL 150-450 [facility] RBC Auto (Bld) [#/Vol]on RBC (Bld) [#/Vol] 4.37 10 6/uL 4.20-5.40 [facility] Serum or plasma albumin/glob ulin mass ratioon 10-16-2023 Albumin/Globulin [Mass ratio] 1.0 {ratio} [facility] Serum or plasma anion gap de terminationon 10-16-2023 Anion gap [Moles/Vol] 14.7 mmol/L [facility] Serum or plasma cyclic adeno sine monophosphate measurement (moles/volume)on 10-16-2023 Adenosine monophosphate.cyclic [Moles/Vol] 6 units 0-19 [facility] Comment on above: Negative <20 Weak po sitive 20 - 39 Moderate positive 40 - 59 Strong positive >59Performed at: [place] [id number] Director: Branden Melendez PhD, Phone: [phone] Serum or plasma rheumatoid f actor measurement (units/volume)on 10-16-2023 Rheumatoid factor Qn 10.4 [IU]/mL <14.0 [facility] Serum or plasma thyroperoxid ase antibody assay (units/volume)on 10-16-2023 TPO Ab Qn [IU]/mL 0-34 [facility] Serum or plasma total choles terol/high density lipoprotein (HDL) cholesterol mass darrin 10-16-2023 Cholesterol.total/Chol esterol in HDL [Mass ratio] 2.2 {ratio} [facility] Comment on above: 3.3 - 4.4 LOW RISK4. 4 - 7.1 AVERAGE RISK7.1 - 11.0 MODERATE RISK>11.0 HIGH RISK Speckled nuclear Ab pattern (S) [Titer]on 10-16-2023 Anti-Nuclear Ab Speckled Pattern 1:320 . [facility] Comment on above: Dense Fine Speckled pattern is noted. This pattern suggeststhe presence of DFS70 antibody which has a low prevalencein systemic autoimmune rheumatic diseases.ICAP nomenclature: AC-2,4,5,29 Dense Fine Speckled pattern is noted. This pattern suggeststhe presence of DFS70 antibody which has a low prevalencein systemic autoimmune rheumatic diseases.ICAP nomenclature: AC-2,4,5,29 Thyroglobulin [Mass/volume] in Serum or Plasmaon 10-16-2023 Thyroglobulin [Mass/Vol] <1.0 [IU]/mL 0.0-0.9 [facility] Comment on above: Thyroglobulin Antibo dy measured by SmartCare systemMethodologyIt should be noted that the presence of thyroglobulinantibodies may not be pathogenic nor diagnostic, especiallyat very low levels. The assay ribbon tier has found thatfour percent of individuals without evidence of thyroiddisease or autoimmunity will have positive TgAb levels upto 4 IU/mL.Performed at: [facility] [id number] Director: Branden Melendez PhD, Phone: [phone] [facility]NC[facility]acio 10-14-2023 [facility] Letter Text [facility] Yancy 10-13-2023 [facility] Telephone ([id number]) -------- STACIE DAVIDSON ([id number]) 1970 F Date Time Provider Department 10/13/23 [facility] [id number] During your visit today, we recorded the following information about you: Kayce Norton 10/13/2023 3:50 PM Signed Patient called again, requesting a letter stating that she is fit for duty for her job to be faxed. Attn: Barbra yoon. Fax number [phone]. Any questions please call patient at [phone], she can't go back to work until they receive something. Thank you! Marilynn Romero MA 10/14/2023 10:02 AM Signed Called and left a voicemail for her to let us know if she needs just a letter from office fit for duty or if there is a form that [employer] has that needs to be filled out then it needs to be faxed over. MOON [facility]ef[facility]on[facility] 10/14/2023 11:41 AM Signed Called again about letter Marilynn Romero MA 10/14/2023 1:08 PM Signed Fit for work letter was typed out and faxed over to [facility]. Talked to patient and she said that is what they needed. Marilynn Romero MA Allergies As of Date: 10/13/2023 Noted Allergy Reaction SULFA (SULFONAMIDE ANTIBIOTICS) 07/18/2023 2 - Rash TETRACYCLINES 12/10/2017 9 - Itching 2 - Rash 12 - Shortness of Breath Date Reviewed: 09/30/2023 Reviewed by: 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 APRN.TRANSFER ENGINEER - Fully Assessed Reason for Visit: Fit for duty letter [Other] Prescriptions as of 10/14/2023 - Lactobacillus acidophilus (PROBIOTIC ORAL) Take by [...] guidelines link. Problem List As Of Date 10/13/2023 Noted Resolved Asthma [J45.909] 09/09/2023 Cholelithiasis [K80.20] 09/09/2023 Depression [F32.A] 09/09/2023 Gastroesophageal reflux disease [K21.9] 09/09/2023 BMI 31.0-31.9,adult [Z68.31] 09/09/2023 MARKY (obstructive sleep apnea) [G47.33] 09/09/2023 09/10/2023 S/P lumpectomy, left breast [Z98.890] 09/10/2023 Encounter Status:Closed by EMERALD MELENDEZ RN on [facility]14/23 [facility] ([id number][facility] -------- STACIE DAVIDSON ([id number]) 1970 F Date Time Provider Department 10/05/23 [facility] [id number] During your visit today, we recorded the following information about you: Kayce Norton 10/05/2023 11:37 AM Signed Patient called needing a return to work fitness form. Any questions she can be reached at [phone] The form should be sent to [employer], . Please also my chart her a copy. Thank You! Marilynn Romero MA 10/06/2023 8:52 AM Addendum There was not return to work fitness form in the packet. I faxed over the forms to [employer] on 09/30/23. I left a vm on patients phone to let her know and that I can't upload them to her [employer] because she does not have one set up. Marilynn Romero MA Allergies As of Date: 10/05/2023 Noted Allergy Reaction SULFA (SULFONAMIDE ANTIBIOTICS) 07/18/2023 2 - Rash TETRACYCLINES 12/10/2017 9 - Itching 2 - Rash 12 - Shortness of Breath Date Reviewed: 09/30/2023 Reviewed by: 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 APRN.TRANSFER ENGINEER - Fully Assessed Reason for Visit: return [...] breast [Z98.890] 09/10/2023 Encounter Status:Closed by MARILYNN ROMERO on 10/06/23 [facility] CNCOon 09-30-2023 CNCO Letter Text [facility] CNOVon 09-30-2023 CNOV Office Visit (BMS710 ) -------- STACIE DAVIDSON ([id number]) 1970 F Date Time Provider Department 09/30/23 1:00 PM MEREDITH BLANCO [id number] During your visit today, we recorded the following information about you: Temperature Pulse Blood pressure Weight 98.6 degrees 78/minute 125/80 73.9 kg Height 1.549 m Marilynn Romero MA 09/30/2023 12:59 PM Signed What is the reason for your visit today? Post op follow up Lap cholecystectomy 09/16/23 Who is your referring physician? Dr Hutchins Are you having poor oral intake? NO Have you had unintentional weight loss of 15 lbs/7 Kg in the last 3-6 months? NO Bowels: regular Wound: clean AND dry Temperature: No Drains: No 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 APRN.CNP 09/30/2023 1:48 PM Signed Assessment Postoperative Visit [...] restrictions. Paperwork completed Follow up: LISA Blanco APRN.TRANSFER ENGINEER Referring Provider: UTE HART [[id number]] Allergies As of Date: 09/30/2023 Noted Allergy Reaction SULFA (SULFONAMIDE ANTIBIOTICS) 07/18/2023 2 - Rash TETRACYCLINES 12/10/2017 9 - Itching 2 - Rash 12 - Shortness of Breath Date Reviewed: 09/30/2023 Reviewed by: 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 APRN.TRANSFER ENGINEER - Fully Assessed Reason for Visit: Post [...] breast [Z98.890] 09/10/2023 Visit Notes: >> Marilynn Romero MA Wed Sep 30, 2023 12:53 PM Status: Signed What is the reason for your visit today? Post op follow up Lap cholecystectomy 09/16/23 Who is your referring physician? Dr Hutchins Are you having poor oral intake? NO Have you had unintentional weight loss of 15 lbs/7 Kg in the last 3-6 months? NO Bowels: regular Wound: clean AND dry Temperature: No Drains: No Disposition: Return if symptoms worsen or fail to improve. Follow-up and Disposition History for Encounter Date Provider Department Center 09/30/2023 [id number]-SIUHDMEREDITH BLANCO [id number] [facility] Encounter Status:Closed by MEREDITH BLANCO on 09/30/23 [facility] Consultation Noteon 09-29-19 Consultation Note 1051 [id number] F [facility] Consultation Note ..2019 [id number]#[address] [facility] CNPRupinder 09-23-2023 CNPN Telephone ([id number]) -------- STUART,STACIE ([id number]) 1970 F Date Time Provider Department 09/23/23 UTE HART [id number] During your visit today, we recorded the following information about you: Marilynn Romero MA 09/23/2023 12:26 PM Signed Received FMLA/STD paperwork on 09/23/23 Pending physician signature and completion. Surgeon: Dr. Hart Date of Surgery (if known): 09/16/23 Marilynn Romero MA 09/30/2023 3:59 PM Signed Employer Forms for Patient/Caregiver Time Off of Work Completed, signed by provider, and returned to below contact. Completed copy scanned in [employer] Date of Surgery: 09/16/23 Estimated RTW date: 10/19/23 Employer: [employer] Faxed to the [facility] Date sent to employer: 09/30/23 Received fax confirmation: YES Allergies As of Date: 09/23/2023 Noted Allergy Reaction SULFA (SULFONAMIDE ANTIBIOTICS) 07/18/2023 2 - Rash TETRACYCLINES 12/10/2017 9 - Itching 2 - Rash 12 - Shortness of Breath Date Reviewed: 09/16/2023 Reviewed by: Lori Shaw, RN - Fully Assessed Reason for Visit: FMLA Paperwork [[id number]] Prescriptions as of 09/30/2023 - Lactobacillus acidophilus [...] breast [Z98.890] 09/10/2023 Encounter Status:Closed by MARILYNN ROMERO on 09/30/23 [facility] ANES POSTPROC EVALon 024 ANES POSTPROC EVAL HNO ID: [id number] Author: JORDY DASILVA DO Service: Anesthesiology Author [...] without cholecystitis without obstruction [K80.20]) Surgeons: Ute Hart MD Responsible Provider: Jordy Dasilva DO Anesthesia [...] September 16, 2023 TIME: 1:55 PM CSN: [id number] [facility] ANES PRE-OPon 09-16-2023 ANES PRE-OP HNO ID: [id number] Author: JORDY DASILVA DO Service: Anesthesiology Author Type: Resident Type: Anesthesia Preprocedure Evaluation Filed: 09/16/2023 07:03 Note Text: -------- Attestation signed by Jordy Dasilva DO at 09/16/2023 7:03 AM I saw and evaluated the patient. Discussed with the ACCOUNTANT SYSTEMS/AA/resident and agree with findings and plan as documented in the note. Jordy Dasilva DO September 16, 2023 7:03 AM -------- ANESTHESIOLOGY DAY OF SURGERY NOTE : 1970 Procedure Information Date/Time: 09/16/23729 Procedure: LAPAROSCOPIC CHOLECYSTECTOMY WITH GRAMS (Abdomen) Location: OR05 / [facility] OR Surgeons: Ute Hart MD Estimated body mass index is 31.66 [...] Yes Vitals Value Taken Time BP 132/63 09/16/23625 Pulse 85 09/16/23625 Resp 16 09/16/23625 Temp [...] September 16, 2023 TIME: 6:56 AM CSN: [id number] [facility] BRIEF OP NOTon 09-16-2023 BRIEF OP NOT HNO ID: [id number] Author: UTE HART MD Service: General Surgery Author Type: Physician Type: Brief Op Note Filed: 09/16/2023 10:00 Note Text: BRIEF OPERATIVE / PROCEDURE NOTE LOG ID: [id number] SURGERY/PROCEDURE DATE: 09/16/2023 INCISION/PROCEDURE START TIME: 8:07 AM INCISION CLOSE/PROCEDURE END TIME: 9:21 AM SURGEON(S)/PROCEDURALIST (S) AND CORRESPONDENCE ANALYST(S): Surgeon(s) and Role: * Ute Hart MD - Primary Physician Broadcast Field Supervisor: Melissa Silverman PA-C SURGERY/PROCEDURE(S): Lap ronnell with IOC ANESTHESIA: General FINDINGS: Chronic cholecystitis ESTIMATED BLOOD LOSS: 50 mls SPECIMENS: Gallbladder COMPLICATIONS: None CLOSURE TECHNIQUE: Primary PRE-OP/PRE-PROCEDURE DIAGNOSIS: Biliary colic POST-OP/POST-PROCEDURE DIAGNOSIS: Same as Preop SIGNATURE: Ute Hart MD PATIENT NAME: Stacie Davidson DATE: September 16, 2023 TIME: 9:59 AM [facility] HISTORY PHYSICALon HISTORY PHYSICAL HNO ID: [id number] Author: UTE HART MD Service: General Surgery Author Type: Physician [...] be found in the attached. SIGNATURE: Ute Hart MD PATIENT NAME: Stacie Davidson DATE: September 16, 2023 TIME: 7:35 AM [facility] NURSING PROGon 09-16-2023 NURSING PROG HNO ID: [id number] Author: SYLVIE CURTIS RN Service: Nursing Author Type: Registered Nurse Type: Nursing Progress Note Filed: 09/16/2023 06:17 Note Text: PATIENT EDUCATION TOPIC: PROCEDURE / SURGERY: Pre-op Teaching: Surgery PATIENT NAME: Stacie Davidson PATIENT LOCATION: [facility] OR POOL/[facility] OR POOL READINESS TO LEARN COGNITIVE ABILITY: [...] (RECOMMENDATION): None Electronically Signed By: Sylvie Cavanaugh [facility] OPERATIVE NOon 09-16-2023 OPERATIVE NO HNO ID: [id number] Author: UTE HART MD Service: General Surgery Author Type: Physician Type: Operative Report Filed: 09/20/2023 10:08 Note Text: [facility] - Operative Report STACIE DAVIDSON : 1970 AGE: 53. SEX: F PATIENT TYPE: A HOSP SVC: [facility] LOCATION: [facility] ATTENDING PHYSICIAN: Ute Hart MD CSN NUMBER: [id number] DATE OF SURGERY/PROCEDURE: 09/16/2023 INCISION/PROCEDURE START TIME: 8:07 AM INCISION CLOSE/PROCEDURE END TIME: 9:21 AM PREOPERATIVE DIAGNOSIS: 1. Right upper quadrant biliary colic and cholelithiasis. 2. Hemangioma at the base of the gallbladder. POSTOPERATIVE DIAGNOSIS: 1. Right upper quadrant biliary colic and cholelithiasis. 2. Hemangioma at the base of the gallbladder. SURGEON: Ute Hart MD CORRESPONDENCE ANALYST: LUCITA Heath SURGERY/PROCEDURE: Laparoscopic cholecystectomy, intraoperative cholangiogram. ANESTHESIA: General endotracheal. COMPLICATIONS: None. ESTIMATED BLOOD LOSS: 100 mL. SPECIMENS: Gallbladder. WOUND CLASS: 2. INDICATIONS: Patient is a pleasant 53-year-old female who was referred to co for cholecystectomy. She did have a large [...] made. A cholangiogram was performed using the [employer] [facility] [employer] catheter. This revealed no flow of contrast [...] assisted me in the absence of qualified surgical product sales consultant. She helped to retract the gallbladder and held the camera throughout the operation. Ute Hart MD TA:[id number] /[id number] [facility] SURGICAL PATHOLOGYon 024 CASE REPORT [facility] Comment on above: Order Comment: Speci men Type: TISSUE SPECIMEN Ordering Facility: [facility] Address: [address] [place] [address] Result Comment: Surg ical Pathology Report Case: [id number] Authorizing Provider: Ute Hart MD Collected: 09/16/2023 09:11 AM Ordering Location: [facility] Received: 09/16/2023 11:51 AM Operating Room Pathologist: Evgeny Guido MD Specimen: GALLBLADDER Performed By: #### S #### [facility] CLIA [id number] [address] [place] [address] [place] CLINICAL HISTORY [facility] Comment on above: Order Comment: Speci men Type: TISSUE SPECIMEN Ordering Facility: [facility] Address: [address] [place] [address] Result Comment: pre- op diagnosis: Calculus of gallbladder without cholecystitis without obstruction [K80.20] Performed By: #### S #### [facility] CLIA [id number] [address] [place] [address] [place] FINAL DIAGNOSIS [facility] Comment on above: Order Comment: Speci men Type: TISSUE SPECIMEN Ordering Facility: [facility] Address: [address] [place] [address] Result Comment: A. G allbladder, cholecystectomy: - Xanthogranulomatous cholecystitis. - Cholelithiasis. Performed By: #### S #### [facility] CLIA [id number] [address] [place] [address] [place] FINAL PERFORMING LAB Normal [facility] Comment on above: Order Comment: Speci men Type: TISSUE SPECIMEN Ordering Facility: [facility] Address: [address] [place] [address] Result Comment: Diag nostic interpretation performed at [facility], [address] [place] [address] CLIA# [id number] [facility] Former: Tor Eaton M.D. Performed By: #### S #### [facility] CLIA [id number] [address] [place] [address] [place] GROSS DESCRIPTION A. GALLBLADDER Normal [facility] Comment on above: Order Comment: Speci men Type: TISSUE SPECIMEN Ordering Facility: [facility] Address: [address] [place] [address] Result Comment: Rece ived in formalin designated [...] shave margin fundus with thickened area and customer sales representative section of body are submitted cassette A1. BF September 16, 2023 12:45 PM Gross examination performed at [facility], [address] [place] [address] CLIA # [id number] Performed By: #### S #### [facility] CLIA [id number] [address] [place] [address] [place] TYPE + SCREENon 09-16-2023 ABO A [facility] Comment on above: Order Comment: Speci men Type: BLOOD SPECIMEN Ordering Facility: [facility] Address: [address] [place] [address] Performed By: #### T SCR #### [facility] CLIA [id number] [address] [place] [address] [place] HISTORICAL AB SCR STATUS Negative Normal [facility] Comment on above: Order Comment: Speci men Type: BLOOD SPECIMEN Ordering Facility: [facility] Address: [address] [place] [address] Performed By: #### T SCR #### [facility] CLIA [id number] [address] [place] [address] [place] Rh Nom (Bld) Positive Normal [facility] Comment on above: Order Comment: Speci men Type: BLOOD SPECIMEN Ordering Facility: [facility] Address: [address] [place] [address] Performed By: #### T SCR #### [facility] CLIA [id number] [address] [place] [address] [place] TYPE AND SCREEN EXPIRATION 09/19/2023 23:59 [facility] Comment on above: Order Comment: Speci men Type: BLOOD SPECIMEN Ordering Facility: [facility] Address: [address] [place] [address] Performed By: #### T SCR #### [facility] CLIA [id number] [address] [place] [address] [place] CBC W Auto Differential pane l (Bld)on 09-12-2023 Basophils (Bld) [#/Vol] 0.06 10*3/uL Normal <0.11 [facility] Comment on above: Order Comment: Speci men Type: BLOOD SPECIMENOrdering Facility: [facility] Address: [address] [place] [address] Performed By: #### 5 7021-8 ####[facility] [id number] [facility] [id number] [place] Basophils/100 WBC (Bld) 1.5 % [facility] Comment on above: Order Comment: Speci men Type: BLOOD SPECIMENOrdering Facility: [facility] Address: [address] [place] [address] Performed By: #### 5 7021-8 ####[facility]IA [id number] [place] [address] [place] Differential cell count method Nom (Bld) Auto [facility] Comment on above: Order Comment: Speci men Type: BLOOD SPECIMENOrdering Facility: [facility] Address: [address] [place] [place] [address] Performed By: #### 5 7021-8 ####[facility] LAB[facility]IA [id number] [place] [address] [place] Eosinophils (Bld) [#/Vol] 0.25 10*3/uL Normal <0.46 [facility] Comment on above: Order Comment: Speci men Type: BLOOD SPECIMENOrdering Facility: [facility] Address: [address] [place] [place] [address] Performed By: #### 5 7021-8 ####[facility]IA [id number] [place] [address] [place] Eosinophils/100 WBC (Bld) 6.1 % [facility] Comment on above: Order Comment: Speci men Type: BLOOD SPECIMENOrdering Facility: [facility] Address: [address] [place] [place] [address] Performed By: #### 5 7021-8 ####[facility]IA [id number] [place] [address] [place] Erythrocyte distribution width (RBC) [Ratio] 11.9 % Normal 11.5-15.0 [facility] Comment on above: Order Comment: Speci men Type: BLOOD SPECIMENOrdering Facility: [facility] Address: [address] [place] [place] [address] Performed By: #### 5 7021-8 ####[facility]IA [id number] [place] [address] [place] Hematocrit (Bld) [Volume fraction] 41.4 % Normal 36.0-46.0 [facility] Comment on above: Order Comment: Speci men Type: BLOOD SPECIMENOrdering Facility: [facility] Address: [address] [place] [address] Performed By: #### 5 7021-8 ####[facility]IA [id number] [place] [address] [place] Hemoglobin (Bld) [Mass/Vol] 13.6 g/dL Normal 11.5-15.5 [facility] Comment on above: Order Comment: Speci men Type: BLOOD SPECIMENOrdering Facility: [facility] Address: [address] [place] [address] Performed By: #### 5 7021-8 ####[facility]IA [id number] [place] [address] [place] Immature granulocytes (Bld) [#/Vol] 10*3/uL Normal <0.10 [facility] Comment on above: Order Comment: Speci men Type: BLOOD SPECIMENOrdering Facility: [facility] Address: [address] [place] [address] Performed By: #### 5 7021-8 ####[facility] LABIA [id number] [place] [address] [place] Immature granulocytes/100 WBC (Bld) 0.2 % [facility] Comment on above: Order Comment: Speci men Type: BLOOD SPECIMENOrdering Facility: [facility] Address: [address] [place] [address] Performed By: #### 5 7021-8 ####[facility] LAB[facility]IA [id number] [place] [address] [place] Lymphocytes (Bld) [#/Vol] 1.67 10*3/uL Normal 1.00-4.00 [facility] Comment on above: Order Comment: Speci men Type: BLOOD SPECIMENOrdering Facility: [facility] Address: [address] [place] [address] Performed By: #### 5 7021-8 ####[facility] LABCLIA [id number] [place] [address] [place] Lymphocytes/100 WBC (Bld) 40.5 % [facility] Comment on above: Order Comment: Speci men Type: BLOOD SPECIMENOrdering Facility: [facility] Address: [address] [place] [place] [address] Performed By: #### 5 7021-8 ####[facility] LABCLIA [id number] [place] [address] [place] MCH (RBC) [Entitic mass] 31.1 pg Normal 26.0-34.0 [facility] Comment on above: Order Comment: Speci men Type: BLOOD SPECIMENOrdering Facility: [facility] Address: [address] [place] [place] [address] Performed By: #### 5 7021-8 ####[facility] LAB[facility]IA [id number] [place] [address] [place] MCHC (RBC) [Mass/Vol] 32.9 g/dL Normal 30.5-36.0 [facility] Comment on above: Order Comment: Speci men Type: BLOOD SPECIMENOrdering Facility: [facility] Address: [address] [place] [address] Performed By: #### 5 7021-8 ####[facility] LABCLIA [id number] [place] [address] [place] MCV (RBC) [Entitic vol] 94.5 fL Normal 80.0-100.0 [facility] Comment on above: Order Comment: Speci men Type: BLOOD SPECIMENOrdering Facility: [facility] Address: [address] [place] [address] Performed By: #### 5 7021-8 ####[facility] LABCLIA [id number] [place] [address] [place] Monocytes (Bld) [#/Vol] 0.34 10*3/uL Normal <0.87 [facility] Comment on above: Order Comment: Speci men Type: BLOOD SPECIMENOrdering Facility: [facility] Address: [address] [place] [address] Performed By: #### 5 7021-8 ####[facility] LAB[facility]IA [id number] [place] [address] [place] Monocytes/100 WBC (Bld) 8.3 % [facility] Comment on above: Order Comment: Speci men Type: BLOOD SPECIMENOrdering Facility: [facility] Address: [address] [place] [address] Performed By: #### 5 7021-8 ####[facility] LAB[facility]IA [id number] [place] [address] [place] Neutrophils (Bld) [#/Vol] 1.79 10*3/uL Normal 1.45-7.50 [facility] Comment on above: Order Comment: Speci men Type: BLOOD SPECIMENOrdering Facility: [facility] Address: [address] [place] [address] Performed By: #### 5 7021-8 ####[facility] LAB[facility]IA [id number] [place] [address] [place] Neutrophils/100 WBC (Bld) 43.4 % [facility] Comment on above: Order Comment: Speci men Type: BLOOD SPECIMENOrdering Facility: [facility] Address: [address] [place] [address] Performed By: #### 5 7021-8 ####[facility] LAB[facility]IA [id number] [place] [address] [place] Nucleated RBC (Bld) [#/Vol] 10*3/uL Normal <0.01 [facility] Comment on above: Order Comment: Speci men Type: BLOOD SPECIMENOrdering Facility: [facility] Address: [address] [place] [address] Performed By: #### 5 7021-8 ####[facility]IA [id number] [place] [address] [place] Nucleated RBC/100 WBC (Bld) [Ratio] 0.0 /100 WBC [facility] Comment on above: Order Comment: Speci men Type: BLOOD SPECIMENOrdering Facility: [facility] Address: [address] [place] [address] Performed By: #### 5 7021-8 ####[facility]IA [id number] [place] [address] [place] Platelet mean volume (Bld) [Entitic vol] 10.6 fL Normal 9.0-12.7 [facility] Comment on above: Order Comment: Speci men Type: BLOOD SPECIMENOrdering Facility: [facility] Address: [address] [place] [address] Performed By: #### 5 7021-8 ####[facility]IA [id number] [place] [address] [place] Platelets (Bld) [#/Vol] 287 10*3/uL Normal 150-400 [facility] Comment on above: Order Comment: Speci men Type: BLOOD SPECIMENOrdering Facility: [facility] Address: [address] [place] [address] Performed By: #### 5 7021-8 ####[facility]IA [id number] [place] [address] [place] RBC (Bld) [#/Vol] 4.38 10*6/uL Normal 3.90-5.20 [facility] Comment on above: Order Comment: Speci men Type: BLOOD SPECIMENOrdering Facility: [facility] Address: [address] [place] [address] Performed By: #### 5 7021-8 ####[facility]IA [id number] [place] [address] [place] WBC (Bld) [#/Vol] 4.12 10*3/uL Normal 3.70-11.00 [facility] Comment on above: Order Comment: Speci men Type: BLOOD SPECIMENOrdering Facility: [facility] Address: [address] [place] [address] Performed By: #### 5 7021-8 ####[facility]IA [id number] [place] [address] [place] NURSING PROGon 09-11-2023 NURSING PROG HNO ID: [id number] Author: MARISOL GALLEGOS, YEFRI Service: Nursing Author Type: Registered Nurse Type: Nursing Progress Note Filed: 09/11/2023 13:40 Note Text: Chart reviewed for upcoming surgery. CMP drawn and resulted, CBC not drawn. Attempted to call lab to see if could be taken from lab already drawn-unable to do. Patient called and message left on voicemail of need to have lab completed at any [facility] lab near her home. Normal [facility] Comprehensive metabolic 2000 panelon 09-10-2023 Albumin [Mass/Vol] 4.6 g/dL Normal 3.9-4.9 [facility] Comment on above: Order Comment: Speci men Type: BLOOD SPECIMENOrdering Facility: [facility] Address: [address] [place] [address] Performed By: #### 2 4323-8 ####[facility]IA [id number] [place] [address] [place] ALP [Catalytic activity/Vol] 130 U/L High 34-123 [facility] Comment on above: Order Comment: Speci men Type: BLOOD SPECIMENOrdering Facility: [facility] Address: [address] [place] [address] Performed By: #### 2 4323-8 ####[facility]IA [id number] [place] [address] [place] ALT [Catalytic activity/Vol] 124 U/L High 7-38 [facility] Comment on above: Order Comment: Speci men Type: BLOOD SPECIMENOrdering Facility: [facility] Address: [address] [place] [address] Performed By: #### 2 4323-8 ####[facility]IA [id number] [place] [address] [place] Anion gap [Moles/Vol] 8 mmol/L Low 9-18 [facility] Comment on above: Order Comment: Speci men Type: BLOOD SPECIMENOrdering Facility: [facility] Address: [address] [place] [address] Performed By: #### 2 4323-8 ####[facility]IA [id number] [place] [address] [place] AST [Catalytic activity/Vol] 35 U/L Normal 13-35 [facility] Comment on above: Order Comment: Speci men Type: BLOOD SPECIMENOrdering Facility: [facility] Address: [address] [place] [place] [address] Performed By: #### 2 4323-8 ####[facility]IA [id number] [place] [address] [place] Bilirubin [Mass/Vol] 0.2 mg/dL Normal 0.2-1.3 [facility] Comment on above: Order Comment: Speci men Type: BLOOD SPECIMENOrdering Facility: [facility] Address: [address] [place] [address] Performed By: #### 2 4323-8 ####[facility] [id number] [place] [address] [place] Calcium [Mass/Vol] 10.2 mg/dL Normal 8.5-10.2 [facility] Comment on above: Order Comment: Speci men Type: BLOOD SPECIMENOrdering Facility: [facility] Address: [address] [place] [address] Performed By: #### 2 4323-8 ####[facility] [id number] [place] [address] [place] Chloride [Moles/Vol] 100 mmol/L Normal 97-105 [facility] Comment on above: Order Comment: Speci men Type: BLOOD SPECIMENOrdering Facility: [facility] Address: [address] [place] [address] Performed By: #### 2 4323-8 ####[facility] LABCLIA [id number] [place] [address] [place] CO2 [Moles/Vol] 28 mmol/L Normal 22-30 [facility] Comment on above: Order Comment: Speci men Type: BLOOD SPECIMENOrdering Facility: [facility] Address: [address] [place] [address] Performed By: #### 2 4323-8 ####[facility] LABIA [id number] [place] [address] [place] Creatinine [Mass/Vol] 0.74 mg/dL Normal 0.58-0.96 [facility] Comment on above: Order Comment: Speci men Type: BLOOD SPECIMENOrdering Facility: [facility] Address: [address] [place] [address] Performed By: #### 2 4323-8 ####[facility] LABIA [id number] [address] [place] Creatinine and Glomerular filtration rate.predicted panel (S/P/Bld) 97 mL/min/1.73m??? Normal >=60 [facility] Comment on above: Order Comment: Speci men Type: BLOOD SPECIMENOrdering Facility: [facility] Address: [address] [place] [address] Result Comment: Petra mated Glomerular Filtration Rate [...] actual GFR. Performed By: #### 2 4323-8 ####[facility] LABCLIA [id number] [place] [address] [place] Glucose [Mass/Vol] 93 mg/dL Normal 74-99 [facility] Comment on above: Order Comment: Speci men Type: BLOOD SPECIMENOrdering Facility: [facility] Address: [address] [place] [address] Result Comment: The [place] Diabetes Association (ADA) provides guidance for cutoff [...] Standards of Medical Care in Diabetes 2016, [place] [employer]. Diabetes Care. 2016.39(Suppl 1). Performed By: #### 2 4323-8 ####[facility] LABCLIA [id number] [place] [address] [place] Potassium [Moles/Vol] 4.6 mmol/L Normal 3.7-5.1 [facility] Comment on above: Order Comment: Grahami men Type: BLOOD SPECIMENOrdering Facility: [facility] Address: [address] [place] [address] Performed By: #### 2 4323-8 ####[facility] LABCLIA [id number] [place] [address] [place] Protein [Mass/Vol] 7.6 g/dL Normal 6.3-8.0 [facility] Comment on above: Order Comment: Speci men Type: BLOOD SPECIMENOrdering Facility: [facility] Address: [address] [place] [address] Performed By: #### 2 4323-8 ####[facility] LABCLIA [id number] [place] [address] [place] Sodium [Moles/Vol] 136 mmol/L Normal 136-144 [facility] Comment on above: Order Comment: Speci men Type: BLOOD SPECIMENOrdering Facility: [facility] Address: [address] [place] [address] Performed By: #### 2 4323-8 ####[facility] LABCLIA [id number] [place] [address] [place] Urea nitrogen [Mass/Vol] 11 mg/dL Normal 7-21 [facility] Comment on above: Order Comment: Speci men Type: BLOOD SPECIMENOrdering Facility: [facility] Address: [place] [address] Performed By: #### 2 4323-8 ####[facility] LABIA [id number] [address] [place] ECG COMPLETEon 09-10-2023 ECG COMPLETE Ventricular Rate : 6 7 BPM Atrial Rate : 67 BPM P-R Interval : 150 ms QRS Duration : 86 ms Q-T Interval : 414 ms QTC Calculation(Bazett) : 437 ms Calculated P [facility] : 58 degrees Calculated R [facility] : 38 degrees Calculated T [facility] : 38 degrees NORMAL SINUS RHYTHM NORMAL ECG Confirmed by DIAZ MEJÍA MD ([id number]) on 09/11/2023 7:14:45 AM NAME : STACIE DAVIDSON PID : [id number] : 1970 Gender : Female Race : ORD : [id number] Procedure Date : Sep 10 2023 16:23:01 Edit Date : Sep 11 2023 07:14:48 Diagnosis: NORMAL SINUS RHYTHM NORMAL ECG Confirmed by DIAZ MEJÍA MD ([id number]) on 09/11/2023 7:14:45 AM Test Reason : SURGERY Location : [facility] : [facility] Overread By : DIAZ MEJÍA MD Edited By : DIAZ MEJÍA MD Referred By : UTE HART Acquired by : Afshan FENG [facility] HISTORY PHYSICALon HISTORY PHYSICAL HNO ID: [id number] Author: ROXANN FRANCOIS APRN.TRANSFER ENGINEER Service: ? Author Type: Nurse Practitioner Type: H&P Filed: 09/11/2023 05:49 Note Text: HISTORY AND PHYSICAL EXAMINATION SERVICE DATE: 09/10/2023 SERVICE TIME: 4:35 PM PRIMARY CARE PHYSICIAN: Marry Schroeder, ALVIN, TRANSFER ENGINEER REASON FOR VISIT: Stacie Davidson is a 53 year old female who is scheduled for Procedure(s) (LRB): LAPAROSCOPIC CHOLECYSTECTOMY WITH GRAMS (N/A) at the request of Dr. Ute Hart for consultation. My final recommendation will be [...] Covid Immunization Dates Overdue - Covid-19 Vaccine (2022- season) Overdue since 04/24/2023 12/29/2020 Imm Admin: COVID-19 original vaccine, age 12+ yr, monovalent ([employer]loo-BI[employer]ain[employer] - PURPLE TOP) 12/08/2020 Imm Admin: COVID-19 original vaccine, age 12+ yr, monovalent (Qloo-BIONTMiramar Labs - PURPLE TOP) REVIEW OF SYSTEMS: PAIN ASSESSMENT: General: No weight loss, malaise or fevers. 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 No neurological symptoms or problems. Respiratory: Positive for Asthma, , Negative for Current cough, Pneumonia within 6 weeks (date) Cardiovascular: No history of HTN requiring medication, no history of angina, CHF, TN, cardiac surgery or stents. Denies rest pain, gangrene or revascularization/amputa tion for PVD. No history of cardiovascular symptoms or problems. GI: Positive for GERD, gallstones, Negative for Vomiting, Abdominal pain, Difficulty swallowing : No history of dysuria, frequency or incontinence,, stones or chronic kidney disease SEAMLESS TUBE DRAWER: Negative for abnormal vaginal bleeding, abnormal vaginal [...] Normal col (more content not included)... Normal [facility] CNOVon 09-04-2023 CNOV Office Visit (BMIREJ ) -------- STACIE DAVIDSON ([id number]) 1970 F Date Time Provider Department 09/04/23 10:00 AM UTE HART During your visit today, we recorded the following information about you: Pulse Blood pressure Weight Height 80/minute 148/84 76.1 kg 1.549 m Ute Hart MD 09/04/2023 1:38 PM Signed Assessment NEW LIVER CONSULT PATIENT NAME: Stacie Davidson REASON FOR CONSULT: Right upper quadrant pain REQUESTING PHYSICIAN: Dr. Roxann Hutchins DATE of SERVICE: 09/03/2023 TIME of SERVICE: 8:47 AM PCP: No primary care provider on file. 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 Hutchins for right upper quadrant abdominal pain. Patient had a significant attack of acute right upper quadrant discomfort around [facility]. She subsequently underwent imaging that noted cholelithiasis. She was also noted to have a hemangioma. Subsequent CT liver noted a hemangioma in segment 4B/5, with the gallbladder on the hemangioma. She was seen by Dr. Hutchins and was subsequently referred to me for [...] is quite healthy. She works at the [employer], no heavy lifting involved. She does not [...] H/O Cirrhosis:No Family history of pancreas/liver/biliary cancer:No RUQ 07/18/2013 July 27, 2023 PAST MEDICAL [...] on file., referred to me by Dr. Hutchins for right upper quadrant abdominal pain. Patient had a significant attack of acute right upper quadrant discomfort around Thanksgiving. She subsequently underwent imaging that noted cholelithiasis. She was also noted to have a hemangioma. Subsequent CT liver noted a hemangioma in segment 4B/5, with the gallbladder on the hemangioma. She was seen by Dr. Hutchins and was subsequently referred to me for [...] is quite healthy. She works at the [employer], no heavy lifting involved. She does not [...] Confounding fa (more content not included)... Normal [facility] CT LIVER W IVCONon 3 CT LIVER W IVCON * * *Final Report* * * DATE OF EXAM: Aug 21 2023 9:30AM [facility] 0548 - CT LIVER W IVCON / [...] There is mild bibasilar juxtapleural subsegmental atelectasis. Residential Insurance Inspector (topogram) images: No additional findings. IMPRESSION: 1. [...] any questions regarding this interpretation, please call [phone]. If you are unable to reach us at the number above, please feel free to contact [facility] eRadiology at [phone]. [id number] Normal [facility] CNPNon 07-27-2023 CNPN Telephone ([facility] -------- STACIE DAVIDSON ([id number]) 1970 F Date Time Provider Department 07/27/23 UTE HART [facility] During your visit today, we recorded the following information about you: Milagro Ag 07/27/2023 10:46 AM Signed Referral received and scanned into [facility]. Reason for referral hepatic hemangioma, RUQ pain and cholelithiasis Emerald Melendez RN 07/30/2023 1:23 PM Signed HPB Referral Referred by Dr. Cuong Arevalo dx: RUQ pain, enlarging hemangioma, cholelithiasis US RUQ 07/18/2013 Emerald Melendez RN 08/04/2023 11:38 AM Signed Call to patient to discuss need for further imaging prior to consult visit. Dr. Hart is recommending CT liver Patient reports having a CT last year and dye caused her a 3 day migraine Denies rash, hives, or shortness of breathe. Patient agreeable to repeat CT w IVCON. Will order pre medication to aid in preventing side effects Provided patient with [facility] appt number to schedule CT Pre medication will be sent to patient pharmacy. Patient to call our office after CT Liver is scheduled to schedule new consult with Dr. Hart. Allergies As of Date: 07/27/2023 (Not on File) Date Reviewed: Never Reviewed Reason for Visit: Consult [173] Primary Visit Diagnosis:Calculus of gallbladder without cholecystitis without obstruction [K80.20] Other Visit Diagnosis:Liver mass [R16.0] Order(s):CT LIVER W IVCON [1470223] Order #: [id number] FUTURE iv contrast (will be provided with [...] before CT Scan Encounter Status:Closed by EMERALD MELENDEZ RN on 08/05/23 Normal [facility] Ambulatory Visit Summaryon 1 09-22-2022 Ambulatory Visit [...] for choosing us for your care. Normal [facility] ED Note-Physicianon 07-23-20 ED Note-Physician [id number] [facility] RAD - Ultrasound Reporton RAD - Ultrasound Report [id number]#[id number] FF Afshan Romero [facility] Urinalysis - AUTOMATEDon Appearance (U) cloudy [employer] Other Bilirubin Ql (U) Negative Xcerion Other Color (U) dark yellow [employer] Other Glucose Ql (U) Negative [employer] Other Hemoglobin Ql (U) Large Osurv Other Ketones Ql (U) Negative [employer] Other Leukocyte esterase Test strip Ql (U) Half Off [place] Other Nitrite Ql (U) Negative [employer] Other pH (U) 6.0 [pH] [employer] Other Protein Ql (U) >300 [employer] Other Specific gravity (U) [Rel density] >1.030 [employer] Other Urobilinogen (U) [Mass/Vol] 0.2 mg/dL [employer] Other Urinalysis - AUTOMATED No rt Hyphen 8 Other Urine Cultureon 07-11-2023 Bacteria identified Cx Nom (U) ORGANISM: Escherichia coli (O:ESCCOL) [place] Count >100,000 Aerobic ANIYAH Charge (NMIC56) - SUSCEPTIBILITY ORGANISM: O:ESCCOL ANTIBIOTIC INTERPRETATION ANIYAH Amikacin S <16 Amoxacillin/K Clavulanate S <8 Ampicillin R >16 Ampicillin/Sulbactam I 1616/8 Aztreonam S <4 Cefazolin S 4 Cefepime S <2 Ceftazidime S <1 Ceftazidime/Avibactam S <4 Ceftolozane/Tazobactam S <2 Ceftriaxone S <1 Cefuroxime S <4 Ciprofloxacin S <0.25 Ertapenem S <0.5 Gentamicin S <2 Levofloxacin S <0.5 Meropenem S <1 Meropenem/Vaborbactam S <2 Nitrofurantoin S <32 Piperacillin/Tazobactam S <8 Tetracycline S <4 Tigecycline S <2 Tobramycin S <2 Trimethoprim/Sulfamethox azole S <0.5 S = SUSCEPTIBLE I = [...] RESISTANT TO ALL B-LACTAM DRUGS. PERFORMED BY: [place] [address] PATHOLOGIST CHICKEN STUFFER ALICE MOORE M.D. Normal [facility] Comment on above: Performed By: #### C UU #### [address] Urine Culture >100,000 [employer] Other ALONDRA by IFAon 10-08-2022 Antinuclear Antibodies, IFA Positive Abnormal The [facility] Comment on above: Result Comment: Nega tive <1:80 Borderline 1:80 Positive >1:80 Performed By: #### A NAIFA ####[facility] [address] [place] [address]Dr. Nish Beauchamp Centriole Pattern Normal [facility] Comment on above: Performed By: #### A NAIFA ####[facility] [address] [place] [address]Dr. Nish Beauchamp Centromere Pattern Normal [facility] Comment on above: Performed By: #### A NAIFA ####[facility] [address] [place] [address]Dr. Nish Beauchamp Homogeneous Pattern Normal [facility] Comment on above: Performed By: #### A NAIFA ####[facility] [address] [place], [place] [address]Sl. Nish Nito Midbody Pattern Normal The [facility] Comment on above: Performed By: #### A NAIFA ####[facility] [address] [place], [place] [address]Up. Elsyifeanyi Beauchamp Note: Comment Normal [facility] Comment on above: Result Comment: For [...] titers Nucleosomes, Histones Drug-induced SLE Speckled Sm, INSTRUCTOR WATCH ASSEMBLY, SCL-70, SLE,MCTD,PSS (diffuse form), SS-A/SS-B Sjogrens Nucleolar SCL-70, PM-1/SCL High titers Scleroderma, PM/DM Centromere Centromere PSS (limited form) w/Crest syndrome variable Nuclear Dot Sp100,b25-sicgyt Primary Biliary Cirrhosis Nuclear GP210, Primary Biliary Cirrhosis Membrane stefan A,B,C Performed By: #### A NAIFA ####[facility] [address] [place], [place] [address]Dr. Nish Beauchamp Nuclear Dot Pattern Normal [facility] Comment on above: Performed By: #### A NAIFA ####[facility] [address] [place] [address]Dr. Nish Beauchamp Nuclear Membrane Pattern Normal [facility] Comment on above: Performed By: #### A NAIFA ####[facility] [address] [place] [address]Dr. Nish Beauchamp Nucleolar Pattern Normal [facility] Comment on above: Performed By: #### A NAIFA ####[facility] [address] [place] [address]Dr. Nish Beauchamp PCNA Pattern Normal [facility] Comment on above: Performed By: #### A NAIFA ####[facility] [address] [place] [address]Dr. Nish Beauchamp Speckled Pattern 1:640 Critically high [facility] Comment on above: Result Comment: Dens e Fine Speckled pattern is noted. This pattern suggests the presence of DFS70 antibody which has a low prevalence in systemic autoimmune rheumatic diseases. ICAP nomenclature: AC-2,4,5,29 Performed By: #### A NAIFA ####[facility] [address] [place] [id number]. Nish Beauchamp Spindle Apparatus Pattern Normal [facility] Comment on above: Performed By: #### A NAIFA ####[facility] [address] [place] [address]Dr. Nish Beauchamp ANTISTREPTOLYSIN O AB (ASO)o n 10-05-2022 Antistreptolysin O Ab 250.4 IU/mL Critically high 0.0-200. [address] [facility] Comment on above: Performed By: #### A SOAB #### [facility] Laboratory [address] [place] [address] [address] Nish Beauchamp RHEUMATOID FACTORon 10-05-19 23 RA Latex Turbid. 10.8 IU/mL Normal <14.0 The [facility] Comment on above: Performed By: #### R F ####[facility] [address] [place] [address]DrJailene Beauchamp CBC AUTO DIFFon 10-04-2022 BASO # 0.1 103/ul Normal 0.0-0.[address] [facility] Comment on above: Performed By: #### C BC ####[facility] [address] [place] [address]Dr. Nish Beauchamp Basophils/100 WBC (Bld) 1.2 % Normal 0.2-2.[address] [facility] Comment on above: Performed By: #### C BC ####[facility] [address] [place] [address]DrJailene Beauchamp EO # 0.2 103/ul Normal 0.0-0.[address] [facility] Comment on above: Performed By: #### C BC ####[facility] [address] [place] [address]Dr. Nish Beauchamp Eosinophils/100 WBC (Bld) 3.6 % Normal 0.9-7.0 [facility] Comment on above: Performed By: #### C BC ####[facility] [address] [place] [address]Dr. Nish Beauchamp Erythrocyte distribution width (RBC) [Ratio] 12.4 % Normal 11.0-15.0 [facility] Comment on above: Performed By: #### C BC ####[facility] [address] [place], [place] [address]Dr. Nish Beauchamp Hematocrit (Bld) [Volume fraction] 42.6 % Normal 36.0-48.0 [facility] Comment on above: Performed By: #### C BC ####[facility] [address] [place], [place] [address]Dr. Nish Beauchamp Hemoglobin (Bld) [Mass/Vol] 14.2 g/dL Normal 12.0-16.0 [facility] Comment on above: Performed By: #### C BC ####[facility] [address] [place], [place] [address]Dr. Nish Beauchamp IG # 0.01 10e3/ul Normal 0.00-0.03 [facility] Comment on above: Performed By: #### C BC ####[facility] [address] [place], [place] [address]Dr. Nish Beauchamp IG % 0.2 % Normal 0.0-0.5 [facility] Comment on above: Performed By: #### C BC ####[facility] [address] [place], [place] [address]Dr. Nish Beauchamp LYMPH # 2.0 103/ul Normal 1.2-3.[address] [facility] Comment on above: Performed By: #### C BC ####[facility] [address] [place], [place] [address]Dr. Nish Beauchamp Lymphocytes/100 WBC (Bld) 37.6 % Normal 20.5-60.[address] [facility] Comment on above: Performed By: #### C BC ####[facility] [address] [place], [place] [address]Dr. Nish Beauchamp MANUAL DIFF REQ NO Normal [facility] Comment on above: Performed By: #### C BC ####[facility] [address] [place] [address]Dr. Nish Nito MCH (RBC) [Entitic mass] 30.9 pg Normal 26.7-34.0 [facility] Comment on above: Performed By: #### C BC ####[facility] [address] [place] [address]Dr. Elsyifeanyi Nito MCHC (RBC) [Mass/Vol] 33.3 g/dL Normal 29.9-35.2 [facility] Comment on above: Performed By: #### C BC ####[facility] [address] [place] [address]Dr. Nish Beauchamp MCV (RBC) [Entitic vol] 92.6 fL Normal 81.0-99.0 [facility] Comment on above: Performed By: #### C BC ####[facility] [address] [place], [place] [address]Dr. Nish Beauchamp MONO # 0.5 103/ul Normal 0.3-0.8 [facility] Comment on above: Performed By: #### C BC ####[facility] [address] [place], [place] [address]Dr. Nish Beauchamp Monocytes/100 WBC (Bld) 9.2 % Normal 1.7-12.0 [facility] Comment on above: Performed By: #### C BC ####[facility] [address] [place], [place] [address]Dr. Nsih Beauchamp NEUT # 2.5 103/ul Normal 1.4-6.[address] [facility] Comment on above: Performed By: #### C BC ####[facility] [address] [place], [place] [address]DrJailene Beauchamp Neutrophils/100 WBC (Bld) 48.2 % Normal 43.0-75.[address] [facility] Comment on above: Performed By: #### C BC ####[facility] [address] [place], [place] [address]DrJailene Beauchamp Platelet mean volume (Bld) [Entitic vol] 9.8 fL Normal 9.5-13.5 [facility] Comment on above: Performed By: #### C BC ####[facility] [address] [place] [address]Dr. Nish Beauchamp PLT 301 103/ul Normal 150-[address] [facility] Comment on above: Performed By: #### C BC ####[facility] [address] [place] [address]Dr. Nish Beauchamp RBC 4.60 106/ul Normal 4.20-5.[address] [facility] Comment on above: Performed By: #### C BC ####[facility] [address] [place] [address]Dr. Nish Nito WBC 5.2 103/ul Normal 4.0-11.[address] [facility] Comment on above: Performed By: #### C BC ####[facility] [address] [place] [address]Dr. Nish Beauchamp CRPon 10-04-2022 CRP [Mass/Vol] mg/L Normal <=1.0 [facility] Comment on above: Performed By: #### C RP, URIC, CMP, TSH ####[facility] [address] [place] [address]Dr. Nish Beauchamp FREE T4on 10-04-2022 Free T4 [Mass/Vol] 0.87 ng/dL Normal 0.76-1.46 [facility] Comment on above: Performed By: #### V ITB12, FT4 #### [facility] [address] [address] [address] Nish Beauchamp PROF 14(COMP METB)on 023 Albumin [Mass/Vol] 4.2 g/dL Normal 3.4-5.0 [facility] Comment on above: Performed By: #### C RP, URIC, CMP, TSH ####[facility] [address] [place] [address]Dr. Nish Beauchamp Albumin/Globulin [Mass ratio] 1.1 {ratio} Normal [facility] Comment on above: Performed By: #### C RP, URIC, CMP, TSH ####[facility] [address] [place] [address]Dr. Nish Beauchamp ALP [Catalytic activity/Vol] 90 U/L Normal 46-116 [facility] Comment on above: Performed By: #### C RP, URIC, CMP, TSH ####[facility] [address] [place] [address]Dr. Nish Beauchamp ALT [Catalytic activity/Vol] 63 U/L Critically high 14-59 [facility] Comment on above: Performed By: #### C RP, URIC, CMP, TSH ####[facility] [address] [place] [address]Dr. Nish Beauchamp Anion gap [Moles/Vol] 12.7 mmol/L Normal [facility] Comment on above: Performed By: #### C RP, URIC, CMP, TSH ####[facility] [address] [place] [address]Dr. Nish Beauchamp AST [Catalytic activity/Vol] 38 U/L Critically high 15-37 [facility] Comment on above: Performed By: #### C RP, URIC, CMP, TSH ####[facility] [address] [place] [address]Dr. Nish Beauchamp Bilirubin [Mass/Vol] 0.3 mg/dL Normal 0.2-1.0 [facility] Comment on above: Performed By: #### C RP, URIC, CMP, TSH ####[facility] [address] [place] [address]Dr. Nish Beauchamp Calcium [Mass/Vol] 9.4 mg/dL Normal 8.5-10.1 [facility] Comment on above: Performed By: #### C RP, URIC, CMP, TSH ####[facility] [address] [place] [address]Dr. Nish Beauchamp Chloride [Moles/Vol] 100 mmol/L Normal 98-107 [facility] Comment on above: Performed By: #### C RP, URIC, CMP, TSH ####[facility] [address] [place] [address]Dr. Nish Beauchamp CO2 [Moles/Vol] 30.1 mmol/L Normal 21.0-32.0 [facility] Comment on above: Performed By: #### C RP, URIC, CMP, TSH ####[facility] [address] [place] [address]Dr. Nish Beauchamp Creatinine [Mass/Vol] 0.75 mg/dL Normal 0.55-1.[address] [facility] Comment on above: Performed By: #### C RP, URIC, CMP, TSH ####[facility] [address] [place] [address]Dr. Nish Beauchamp EGFR-AF [place] >60 Normal >=60 [facility] Comment on above: Performed By: #### C RP, URIC, CMP, TSH ####[facility] [address]rnjms[address] [place] [address]Dr. Nish Beauchamp EGFR-NON AF [place] >60 Normal >=[address] [facility] Comment on above: Performed By: #### C RP, URIC, CMP, TSH ####[facility] [address] [place] [address]Dr. Nish Beauchamp Globulin (S) [Mass/Vol] 3.9 g/dL Normal [facility] Comment on above: Performed By: #### C RP, URIC, CMP, TSH ####[facility] [address]ns[address] [place] [address]Dr. Nish Beauchamp Glucose [Mass/Vol] 95 mg/dL Normal 74-106 [facility] Comment on above: Performed By: #### C RP, URIC, CMP, TSH ####[facility] [address]qrdxqjr[address] [place] [address]Dr. Nish Beauchamp Potassium [Moles/Vol] 3.8 mmol/L Normal 3.5-5.[address] [facility] Comment on above: Performed By: #### C RP, URIC, CMP, TSH ####[facility] [address]urwmttde[address] [place] [address]Dr. Nish Beauchamp Protein [Mass/Vol] 8.1 g/dL Normal 6.4-8.2 [facility] Comment on above: Performed By: #### C RP, URIC, CMP, TSH ####[facility] [address] [place] [id number]. Nish Beauchamp Sodium [Moles/Vol] 139 mmol/L Normal 136-145 [facility] Comment on above: Performed By: #### C RP, URIC, CMP, TSH ####[facility] Utfsoyohvf[address] [place] [id number]. Nish Beauchamp Urea nitrogen [Mass/Vol] 13.0 mg/dL Normal 7.0-18.0 [facility] Comment on above: Performed By: #### C RP, URIC, CMP, TSH ####[facility] [address]wgamnfvp[address] [place] [address]Dr. Nish Beauchamp Urea nitrogen/Creatinine [Mass ratio] 17.3 mg/mg Normal [facility] Comment on above: Performed By: #### C RP, URIC, CMP, TSH ####[facility] [address]jz[address]qp[address] [place] [address]Dr. Nish Beauchamp [facility] ISLANDRENon 2022 SED RATE 37 mm/hr Critically high <=30 [facility] Comment on above: Performed By: #### S EDR #### [facility] [address] [place] [address] [address] Nish Beauchamp TSHon 10-04-2022 TSH 0.876 uIU/mL Normal 0.358-3.740 The [facility] Comment on above: Performed By: #### C RP, URIC, CMP, TSH ####[facility] [address]wdopzuv[address] [place] [address]Dr. Nish Beauchamp URIC ACID SERUMon 10-04-2022 Urate [Mass/Vol] 4.8 mg/dL Normal 2.6-6.0 [facility] Comment on above: Performed By: #### C RP, URIC, CMP, TSH ####[facility] Zfwkufznzz[address] [place] [address]Dr. Nish Beauchamp VITAMIN B12on 10-04-2022 Cobalamin (Vitamin B12) [Mass/Vol] 439.0 pg/mL Normal 193.0-986.0 [facility] Comment on above: Performed By: #### V ITB12, FT4 #### [facility] [address] [place], [place] [address] Dr. Nish Beauchamp MG MAMM SCREEN 3D MARY CADon 08-05-2022 MG MAMM SCREEN 3D MARY CAD Patient: STACIE DAVIDSON Exam Date: 08/05/2022 : 1970 Gender:F Ordering : AL[facility]IN [facility] Admission #: [id number] Family : Order #: [id number] CLICK HERE TO VIEW EXAM RADIOLOGY REPORT [...] Treatments None Family Cancers None LOCATION: The [facility] BREAST COMPOSITION: Heterogeneously dense,which may obscure [...] LUMP SHOULD BE BIOPSIED. Dictated by: Loren Wheatley M.D. on 08/05/2022 at 15:20 Approved by: Loren Wheatley M.D. on 08/05/2022 at 15:22 Normal [address] [facility] UA RANDOM W/MICROSCOPICon BACTERIA SMALL Abnormal NONE SEEN [facility] Comment on above: Performed By: #### U AMIC ####[facility] [address]cxwcz[address] [place] [id number]. Nish Beauchamp Bilirubin Ql (U) Negative Normal NEGATIVE [facility] Comment on above: Performed By: #### U AMIC ####[facility] Sbobpe[address]utg[address] [place] [id number]. Nish Beauchamp CAST NONE SEEN Normal NONE SEEN [facility] Comment on above: Performed By: #### U AMIC ####[facility] [address]wrqol[address] [place] [address]Dr. Nish Beauchamp Clarity (U) CLEAR Normal CLEAR [facility] Comment on above: Performed By: #### U AMIC ####[facility] [address]rm[address]zevyax[address] [place] [address]Dr. Nish Beauchamp Color (U) LT. YELLOW Normal YELLOW [facility] Comment on above: Performed By: #### U AMIC ####[facility] Qbnegqssea[address] [place] [address]Dr. Nish Beauchamp Crystals LM Nom (Urine sed) NONE SEEN Normal NONE SEEN [facility] Comment on above: Performed By: #### U AMIC ####[facility] Wtgilbatpl5[address] [place] [address]Dr. Nish Beauchamp Epithelial cells LM Ql (Urine sed) FEW Abnormal NONE SEEN /RARE The [facility] Comment on above: Performed By: #### U AMIC ####[facility] [address] [place], [place] [address]Dr. Nish Beauchamp Glucose Ql (U) Negative Normal NEGATIVE [facility] Comment on above: Performed By: #### U AMIC ####[facility] [address] [place], [place] [address]Dr. Nish Beauchamp Hemoglobin Ql (U) TRACE-INTACT Abnormal NEGATIVE [facility] Comment on above: Performed By: #### U AMIC ####[facility] [address] [place], [place] [address]Dr. Nish Beauchamp Ketones Ql (U) Negative Normal NEGATIVE [facility] Comment on above: Performed By: #### U AMIC ####[facility] [address] [place], [place] [address]Dr. Nish Beauchamp LEUKOCYTES SMALL Abnormal NEGATIVE [facility] Comment on above: Performed By: #### U AMIC ####[facility] [address] [place], [place] [address]Dr. Nish Beauchamp MUCOUS NONE SEEN Normal NONE SEEN [facility] Comment on above: Performed By: #### U AMIC ####[facility] Fvbpnlcjwd[address] [place] [address]Dr. Nish Beauchamp Nitrite Ql (U) Negative Normal NEGATIVE [facility] Comment on above: Performed By: #### U AMIC ####[facility] Ytr[address]swopha[address] [place] [id number]. Nish Beauchamp pH (U) 6.0 [pH] Normal 5-[address] [facility] Comment on above: Performed By: #### U AMIC ####[facility] [address]udtoflcm[address] [place] [address]Dr. Nish Beauchamp RBC 0-2 Normal 0-[address] [facility] Comment on above: Performed By: #### U AMIC ####[facility] Yaekjrsnwh[address] [place] [address]Dr. Nish Beauchamp SPEC GRAVITY 1.010 Normal 1.005-<=1.0 25 [facility] Comment on above: Performed By: #### U AMIC ####[facility] Awfukmxcuh[address] [place] [address]Dr. Nish Beauchamp UA PROTEIN Negative Normal NEGATIVE/ TRACE [facility] Comment on above: Performed By: #### U AMIC ####[facility] Drxzydjixn15[address] [place] [address]Dr. Nish Beauchamp Urobilinogen Qn (U) 0.2 {Martha'U}/dL Normal 0.2 - 1. [address] [facility] Comment on above: Performed By: #### U AMIC ####[facility] [address]oxgy[address] [place] [address]Dr. Nish Beauchamp WBC 2-5 Abnormal NONE SEEN [facility] Comment on above: Performed By: #### U AMIC ####[facility] [address]pirgy[address] [place] [address]Dr. Nish Beauchamp AMYLASEon 05-30-2022 Amylase [Catalytic activity/Vol] 82 U/L Normal 25-[address] [facility] Comment on above: Performed By: #### L IPA, BONG, CMP #### [facility] [address] [place] [address] Dr. Nish Beauhcamp CBC AUTO DIFFon 05-30-2022 BASO # 0.1 103/ul Normal 0.0-0.1 [facility] Comment on above: Performed By: #### C BC #### [facility] [address] [place] [address] Dr. Nish Beauchamp Basophils/100 WBC (Bld) 1.1 % Normal 0.2-2.0 [facility] Comment on above: Performed By: #### C BC #### [facility] [address] [place] [address] Dr. Nish Beauchamp EO # 0.2 103/ul Normal 0.0-0.[address] [facility] Comment on above: Performed By: #### C BC #### [facility] [address] [place] [address] Dr. Nish Beauchamp Eosinophils/100 WBC (Bld) 4.3 % Normal 0.9-7.0 [facility] Comment on above: Performed By: #### C BC #### [facility] [address] [place] [address] Dr. Nish Beauchamp Erythrocyte distribution width (RBC) [Ratio] 12.4 % Normal 11.0-15.0 [facility] Comment on above: Performed By: #### C BC #### [facility] [address] [place] [address] Dr. Nish Beauchamp Hematocrit (Bld) [Volume fraction] 42.5 % Normal 36.0-48.0 [facility] Comment on above: Performed By: #### C BC #### [facility] [address] [place] [address] Dr. Nish Beauchamp Hemoglobin (Bld) [Mass/Vol] 13.7 g/dL Normal 12.0-16.[address] [facility] Comment on above: Performed By: #### C BC #### [facility] [address] [place] [address] Dr. Nish Beauchamp IG # 0.02 10e3/ul Normal 0.00-0.[address] [facility] Comment on above: Performed By: #### C BC #### [facility] [address] [place] [address] Dr. Nish Beauchamp IG % 0.4 % Normal 0.0-0.[address] [facility] Comment on above: Performed By: #### C BC #### [facility] [address] [place] [address] Dr. Nish Beauchamp LYMPH # 1.9 103/ul Normal 1.2-3.[address] [facility] Comment on above: Performed By: #### C BC #### [facility] [address] [place] [address] Dr. Nish Beauchamp Lymphocytes/100 WBC (Bld) 35.0 % Normal 20.5-60.[address] [facility] Comment on above: Performed By: #### C BC #### [facility] [address] [place] [address] Dr. Nish Beauchamp MANUAL DIFF REQ NO Normal [facility] Comment on above: Performed By: #### C BC #### [facility] [address] [place] [address] Dr. Nish Beauchamp MCH (RBC) [Entitic mass] 30.5 pg Normal 26.7-34.[address] [facility] Comment on above: Performed By: #### C BC #### [facility] [address] [place] [address] Dr. Nish Beauchamp MCHC (RBC) [Mass/Vol] 32.2 g/dL Normal 29.9-35.[address] [facility] Comment on above: Performed By: #### C BC #### [facility] [address] [place] [address] Dr. Nish Beauchamp MCV (RBC) [Entitic vol] 94.7 fL Normal 81.0-99.[address] [facility] Comment on above: Performed By: #### C BC #### [facility] [address] [place] [address] Dr. Nish Beauchamp MONO # 0.5 103/ul Normal 0.3-0.[address] [facility] Comment on above: Performed By: #### C BC #### [facility] [address] [place] [address] Dr. Nish Beauchamp Monocytes/100 WBC (Bld) 8.8 % Normal 1.7-12.0 [facility] Comment on above: Performed By: #### C BC #### [facility] [address] [place] [address] Dr. Nish Beauchamp NEUT # 2.7 103/ul Normal 1.4-6.5 [facility] Comment on above: Performed By: #### C BC #### [facility] [address] [place] [address] Dr. Nish Beauchamp Neutrophils/100 WBC (Bld) 50.4 % Normal 43.0-75.0 [facility] Comment on above: Performed By: #### C BC #### [facility] [address] [place] [address] Dr. Nish Beauchamp Platelet mean volume (Bld) [Entitic vol] 10.6 fL Normal 9.5-13.5 [facility] Comment on above: Performed By: #### C BC #### [facility] [address] [place] [address] Dr. Nish Beauchamp PLT 288 103/ul Normal 150-[address] [facility] Comment on above: Performed By: #### C BC #### [facility] [address] [place] [address] Dr. Nish Beauchamp RBC 4.49 106/ul Normal 4.20-5.[address] [facility] Comment on above: Performed By: #### C BC #### [facility] [address] [place] [address] Dr. Nish Beauchamp WBC 5.3 103/ul Normal 4.0-11.[address] [facility] Comment on above: Performed By: #### C BC #### [facility] [address] [place] [address] Dr. Nish Beauchamp LIPASEon 05-30-2022 Lipase [Catalytic activity/Vol] 261.0 U/L Normal 73.0-393.0 [facility] Comment on above: Performed By: #### L IPA, BONG, CMP #### [facility] [address] [place] [address] Dr. Nish Beauchamp PROF 14(COMP METB)on 022 Albumin [Mass/Vol] 4.0 g/dL Normal 3.4-5.0 [facility] Comment on above: Performed By: #### L BONG BACA, CMP #### [facility] [address] [place] [address] [address] Nish Beauchamp Albumin/Globulin [Mass ratio] 1.1 {ratio} Normal [facility] Comment on above: Performed By: #### L BONG BACA, CMP #### [facility] [address] [place] [address] [address] Nish Beauchamp ALP [Catalytic activity/Vol] 75 U/L Normal 46-116 [facility] Comment on above: Performed By: #### L BONG BACA, CMP #### [facility] [address] [place] [address] [address] Nish Beauchamp ALT [Catalytic activity/Vol] 29 U/L Normal 14-59 [facility] Comment on above: Performed By: #### L BONG BACA, CMP #### [facility] [address] [place] [address] [address] Nish Beauchamp Anion gap [Moles/Vol] 11.1 mmol/L Normal [facility] Comment on above: Performed By: #### L BONG BACA, CMP #### [facility] [address] [place] [address] [address] Nish Beauchamp AST [Catalytic activity/Vol] 19 U/L Normal 15-37 [facility] Comment on above: Performed By: #### L BONG BACA, CMP #### [facility] [address] [place] [address] [address] Nish Beauchamp Bilirubin [Mass/Vol] 0.2 mg/dL Normal 0.2-1.0 [facility] Comment on above: Performed By: #### L BONG BACA, CMP #### [facility] [address] [place] [address] [address] Nish Beauchamp Calcium [Mass/Vol] 9.2 mg/dL Normal 8.5-10.1 [facility] Comment on above: Performed By: #### L BONG BACA, CMP #### [facility] [address] [place] [address] [address] Nish Beauchamp Chloride [Moles/Vol] 105 mmol/L Normal 98-107 [facility] Comment on above: Performed By: #### L PHUONG BONG, CMP #### [facility] [address] [place] [address] [address] Nish Beauchamp CO2 [Moles/Vol] 29.0 mmol/L Normal 21.0-32.0 [facility] Comment on above: Performed By: #### L BONG BACA, CMP #### [facility] [address] [place] [address] [address] Nish Beauchamp Creatinine [Mass/Vol] 0.86 mg/dL Normal 0.55-1.02 [facility] Comment on above: Performed By: #### L BONG BACA, CMP #### [facility] [address] [place] [address] Dr. Nish Beauchamp EGFR-AF [place]ORE[place] >60 Normal >=60 [facility] Comment on above: Performed By: #### L BONG BACA, CMP #### [facility] [address] [place] [address] Dr. Nish Beauchamp EGFR-NON AF [place] >60 Normal >=60 [facility] Comment on above: Performed By: #### L BONG BACA, CMP #### [facility] [address] [place] [address] Dr. Nish Beauchamp Globulin (S) [Mass/Vol] 3.7 g/dL Normal [facility] Comment on above: Performed By: #### L BONG BACA, CMP #### [facility] [address] [place] [address] [address] Nish Beauchamp Glucose [Mass/Vol] 106 mg/dL Normal 74-106 [facility] Comment on above: Performed By: #### L BONG BACA, CMP #### [facility] [address] [place] [address] [address] Nish Beauchamp Potassium [Moles/Vol] 4.1 mmol/L Normal 3.5-5.1 [facility] Comment on above: Performed By: #### L BONG BACA, CMP #### [facility] [address] [place] [address] [address] Nish Beauchamp Protein [Mass/Vol] 7.7 g/dL Normal 6.4-8.2 [facility] Comment on above: Performed By: #### L BONG BACA, CMP #### [facility] [address] [place] [address] [address] Nish Beauchamp Sodium [Moles/Vol] 141 mmol/L Normal 136-145 [facility] Comment on above: Performed By: #### L BONG BACA, CMP #### [facility] [address] [place] [address] [address] Nish Beauchamp Urea nitrogen [Mass/Vol] 19.0 mg/dL Critically high 7.0-18.0 [facility] Comment on above: Performed By: #### L BONG BACA, CMP #### [facility] [address] [place] [address] [address] Nish Beauchamp Urea nitrogen/Creatinine [Mass ratio] 22.1 mg/mg Normal [facility] Comment on above: Performed By: #### L BONG BACA, CMP #### [facility] [address] [place] [address] [address] Nish Beauchamp UA RANDOM W/MICROSCOPICon BACTERIA SMALL Abnormal NONE SEEN [facility] Comment on above: Performed By: #### U AMIC ####[facility] [address] [place] [address]DrJailene Beauchamp Bilirubin Ql (U) Negative Normal NEGATIVE [facility] Comment on above: Performed By: #### U AMIC ####[facility] [address] [place] [address]DrJailene Beauchamp CAST NONE SEEN Normal NONE SEEN [facility] Comment on above: Performed By: #### U AMIC ####[facility] [address] [place] [id number] Beauchamp Clarity (U) CLEAR Normal CLEAR [facility] Comment on above: Performed By: #### U AMIC ####[facility] [address] [place] [address]Dr. Nish Beauchamp Color (U) LT. YELLOW Normal YELLOW [facility] Comment on above: Performed By: #### U AMIC ####[facility] [address] [place] [address]Dr. Nish Beauchamp Crystals LM Nom (Urine sed) NONE SEEN Normal NONE SEEN [facility] Comment on above: Performed By: #### U AMIC ####[facility] [address] [place] [address]Dr. Nish Beauchamp Epithelial cells LM Ql (Urine sed) MODERATE Abnormal NONE SEEN /RARE [facility] Comment on above: Performed By: #### U AMIC ####[facility] [address] [place], [place] [address]Dr. Nish Beauchamp Glucose Ql (U) Negative Normal NEGATIVE [facility] Comment on above: Performed By: #### U AMIC ####[facility] [address] [place], [place] [address]Dr. Nish Beauchamp Hemoglobin Ql (U) SMALL Abnormal NEGATIVE [facility] Comment on above: Performed By: #### U AMIC ####[facility] [address] [place], [place] [address]Dr. Nish Beauchamp Ketones Ql (U) Negative Normal NEGATIVE [facility] Comment on above: Performed By: #### U AMIC ####[facility] [address]cs[address] [place] [address]Dr. Nish Beauchamp LEUKOCYTES TRACE Abnormal NEGATIVE [facility] Comment on above: Performed By: #### U AMIC ####[facility] [address] [place] [address]Dr. Nish Beauchamp MUCOUS NONE SEEN Normal NONE SEEN [facility] Comment on above: Performed By: #### U AMIC ####[facility] [address] [place], [place] [address]Dr. Nish Beauchamp Nitrite Ql (U) Negative Normal NEGATIVE [facility] Comment on above: Performed By: #### U AMIC ####[facility] [address] [place], [place] [address]Dr. Nish Beauchamp pH (U) 5.5 [pH] Normal 5-[address] [facility] Comment on above: Performed By: #### U AMIC ####[facility] [address]yans[address] [place] [address]Dr. Nish Beauchamp RBC 2-5 Abnormal 0-2 [facility] Comment on above: Performed By: #### U AMIC ####[facility] [address]hwyu[address] [place] [id number]. Nish Beauchamp SPEC GRAVITY >=1.030 Abnormal 1.005-<=1.0 25 [facility] Comment on above: Performed By: #### U AMIC ####[facility] [address] [place] [address]Dr. Elsyifeanyi Beauchamp UA PROTEIN Negative Normal NEGATIVE/ TRACE [facility] Comment on above: Performed By: #### U AMIC ####[facility] [address]uwssqn[address] [place] [address]Dr. Nish Beauchamp Urobilinogen Qn (U) 0.2 {Martha'U}/dL Normal 0.2 - 1. 0 [facility] Comment on above: Performed By: #### U AMIC ####[facility] [address] [place] [address]Dr. Nish Beauchamp WBC 2-5 Abnormal NONE SEEN [facility] Comment on above: Performed By: #### U AMIC ####[facility] [address]xtbyeq[address] [place] [address]Dr. Nish Bea[address] CT ABDOMEN WO/W CONon 2021 CT ABDOMEN WO/W CON EXAMINATION: CT ABDO MEN WO/W CON HISTORY: Disease of liver ; [...] No suspicious findings. Electronically authenticated by: LOREN WHEATLEY Date: 2022-05-21 08:55 Normal [facility] US SINGLE QUAD RT UPPERon US SINGLE [...] for further evaluation. Electronically authenticated by: LOREN WHEATLEY Date: 2022-05-19 08:42 Normal [facility] MG MAMM DX 3D RT CADon 01-22 MG MAMM DX 3D RT CAD Patient: RADHA DAVIDSON Exam Date: 01/22/2022 : 1970 Gender:F Ordering : ALVIN MARRY SCHROEDER [facility] Admission #: [id number] Family : Order #: [id number] CLICK HERE TO VIEW EXAM RADIOLOGY REPORT [...] No Treatments None Family Cancers None LOCATION: [facility] BREAST COMPOSITION: Heterogeneously dense,which may obscure small [...] LUMP SHOULD BE BIOPSIED. Dictated by: Loren Wheatley M.D. on 01/22/2022 at 10:14 Approved by: Loren Wheatley M.D. on 01/22/2022 at 10:17 Normal [facility] Vital Signs Date Time Vital Sign Value Performing Clinician Facility 03-07-2024 08:32-0400 Body height 154.94 cm [facility] 03-07-2024 08:32-0400 Body mass index (BMI) [Ratio] 31.1 kg/m2 [facility] 03-07-2024 08:32-0400 Body weight 74.84 kg [facility] 03-07-2024 08:32-0400 Diastolic blood pressure 78 mm[Hg] [facility] 03-07-2024 08:32-0400 Heart rate 81 /min [facility] 03-07-2024 08:32-0400 SaO2% (BldA) [Mass fraction] 100 % [facility] 03-07-2024 08:32-0400 Systolic blood pressure 122 mm[Hg] [facility] 01-27-2024 09:31-0400 Body height 154.94 cm [facility] 01-27-2024 09:31-0400 Body mass index (BMI) [Ratio] 31.1 kg/m2 [facility] 01-27-2024 09:31-0400 Body weight 74.84 kg [facility] 01-27-2024 09:31-0400 Diastolic blood pressure 76 mm[Hg] [facility] 01-27-2024 09:31-0400 Heart rate 96 /min [facility] 01-27-2024 09:31-0400 SaO2% (BldA) [Mass fraction] 98 % [facility] 01-27-2024 09:31-0400 Systolic blood pressure 124 mm[Hg] [facility] 01-12-2024 08:26-0400 Body height 154.94 cm [facility] 01-12-2024 08:26-0400 Body mass index (BMI) [Ratio] 31.1 kg/m2 [facility] 01-12-2024 08:26-0400 Body weight 74.84 kg [facility] 01-12-2024 08:26-0400 Diastolic blood pressure 76 mm[Hg] [facility] 01-12-2024 08:26-0400 Heart rate 103 /min [facility] 01-12-2024 08:26-0400 SaO2% (BldA) [Mass fraction] 97 % [facility] 01-12-2024 08:26-0400 Systolic blood pressure 120 mm[Hg] [facility] 01-06-2024 09:35-0400 Body height 154.9 cm Tim Plaza MD Work Phone: [facility] 01-06-2024 09:35-0400 Body mass index (BMI) [Ratio] 31.24 kg/m2 Tim Plaza MD Work Phone: [facility] 01-06-2024 09:35-0400 Body weight 75 kg Tim Plaza MD Work Phone: [facility] 01-06-2024 09:35-0400 Diastolic blood pressure 74 mm[Hg] Tim Plaza MD Work Phone: [facility] 01-06-2024 09:35-0400 Heart rate 85 /min Tim Plaza MD Work Phone: [facility] 01-06-2024 09:35-0400 Systolic blood pressure 130 mm[Hg] Tim Plaza MD Work Phone: [facility] 12-15-2023 07:49-0400 Body height 154.94 cm [facility] 12-15-2023 07:49-0400 Body mass index (BMI) [Ratio] 30.9 kg/m2 [facility] 12-15-2023 07:49-0400 Body weight 74.38 kg [facility] 12-15-2023 07:49-0400 Diastolic blood pressure 86 mm[Hg] [facility] 12-15-2023 07:49-0400 Heart rate 104 /min [facility] 12-15-2023 07:49-0400 Systolic blood pressure 122 mm[Hg] [facility] 11-10-2023 08:01-0400 Body height 154.94 cm [facility] 11-10-2023 08:01-0400 Body mass index (BMI) [Ratio] 31.5 kg/m2 [facility] 11-10-2023 08:01-0400 Body weight 75.74 kg [facility] 11-10-2023 08:01-0400 Diastolic blood pressure 86 mm[Hg] [facility] 11-10-2023 08:01-0400 Heart rate 80 /min [facility] 11-10-2023 08:01-0400 SaO2% (BldA) [Mass fraction] 98 % [facility] 11-10-2023 08:01-0400 Systolic blood pressure 124 mm[Hg] [facility] 10-13-2023 13:07-0500 Body height 154.94 cm [facility] 10-13-2023 13:07-0500 Body mass index (BMI) [Ratio] 31.7 kg/m2 [facility] 10-13-2023 13:07-0500 Body weight 76.2 kg [facility] 10-13-2023 13:07-0500 Diastolic blood pressure 76 mm[Hg] [facility] 10-13-2023 13:07-0500 Heart rate 87 /min [facility] 10-13-2023 13:07-0500 SaO2% (BldA) [Mass fraction] 98 % [facility] 10-13-2023 13:07-0500 Systolic blood pressure 114 mm[Hg] [facility] 09-30-2023 12:53-0500 Body height 154.9 cm 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 APRN.TRANSFER ENGINEER Work Phone: [facility] 09-30-2023 12:53-0500 Body temperature 98.6 [degF] 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 APRN.TRANSFER ENGINEER Work Phone: [facility] 09-30-2023 12:53-0500 Body weight 73.94 kg 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 COUNTY ENGINEER.TRANSFER ENGINEER Work Phone: [facility] 09-30-2023 12:53-0500 Diastolic blood pressure 80 mm[Hg] 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 APRN.TRANSFER ENGINEER Work Phone: [facility] 09-30-2023 12:53-0500 Heart rate 78 /min 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 COUNTY ENGINEER.TRANSFER ENGINEER Work Phone: [facility] 09-30-2023 12:53-0500 SaO2% (BldA) [Mass fraction] 100 % 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 COUNTY ENGINEER.TRANSFER ENGINEER Work Phone: [facility] 09-30-2023 12:53-0500 Systolic blood pressure 125 mm[Hg] 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 COUNTY ENGINEER.TRANSFER ENGINEER Work Phone: [facility] 07-23-2023 09:39-0500 Blood Pressure Location Roxann HUTCHINS [facility] [place] 07-23-2023 09:39-0500 Diastolic blood pressure 88 mm[Hg] Roxann HUTCHINS [facility] [place] 07-23-2023 09:39-0500 Heart rate 88 /min Roxann HUTCHINS [facility] [place] 07-23-2023 09:39-0500 Respiratory rate 16 /min Roxann WHITNEYL [facility] [place] 07-23-2023 09:39-0500 Systolic blood pressure 140 mm[Hg] Roxann HUTCHINS [facility] [place] 07-11-2023 12:15-0500 Body height 154.94 cm Dayanara Thompson Other [employer] [facility] [employer] Other 07-11-2023 12:15-0500 Body mass index (BMI) [Ratio] 32.57 kg/m2 Dayanara Thompson Other [employer] Other 07-11-2023 12:15-0500 Body temperature 98.7 [degF] Dayanara Thompson Other [employer] Other 07-11-2023 12:15-0500 Body weight 78.2 kg Dayanara Thompson Other [employer] Other 07-11-2023 12:15-0500 Respiratory rate 18 /min Dayanara Thompson Other [employer] Other 07-11-2023 12:15-0500 SaO2% (BldA) [Mass fraction] 99 % Dayanara Thompson Other [employer] Other 05-31-2023 14:20-0400 Body height 154.94 cm Rylee Barrientos Other [employer] Other 05-31-2023 14:20-0400 Body mass index (BMI) [Ratio] 31.89 kg/m2 Rylee Barrientos Other [employer] Other 05-31-2023 14:20-0400 Body temperature 97.5 [degF] Rylee Sandersonley Other [employer] Other 05-31-2023 14:20-0400 Body weight 76.57 kg Rylee Iliana Other [employer] Other 05-31-2023 14:20-0400 Diastolic blood pressure 82 mm[Hg] Rylee Iliana Other [employer] Other 05-31-2023 14:20-0400 Respiratory rate 18 /min Rylee Iliana Other [employer] Other 05-31-2023 14:20-0400 SaO2% (BldA) [Mass fraction] 99 % Rylee Iliana Other [employer] Other 05-31-2023 14:20-0400 Systolic blood pressure 125 mm[Hg] Rylee Barrientos Other [employer] Other Encounters Encounter Date Encounter Type Care Provider Facility Start: 03-07-2024 End: 03-07-2024 Departed Referred LAUREN Lawson Work Phone: [facility] [place] Work Phone: Start: 03-07-2024 End: 03-07-2024 ambulatory LAUREN Lawson Work Phone: [facility] Work Phone: Start: 03-07-2024 End: 03-07-2024 Patient encounter procedure [facility] Work Phone: Start: 01-27-2024 End: 01-27-2024 ambulatory [facility] Work Phone: Start: 01-27-2024 End: 01-27-2024 Patient encounter procedure [facility] Work Phone: Start: 01-15-2024 End: 01-15-2024 ambulatory Tim Plaza MD Work Phone: Rheumatology Comment on above: Ds DNA antibody posi tive (Primary Dx); Polyarthralgia; Positive ALONDRA (antinuclear antibody); Chronic pain syndrome Start: 01-15-2024 End: 01-15-2024 Telemedicine consultation with patient Tim Plaza MD Work Phone: Rheumatology Start: 01-12-2024 End: 01-12-2024 [facility] Work Phone: Start: 01-12-2024 End: 01-12-2024 Patient encounter procedure [facility] Work Phone: Start: 01-06-2024 End: 01-07-2024 ambulatory Yamil Talisha RT(R) Radiology Comment on above: Radiology XR Start: 01-06-2024 Patient encounter procedure Yamil Talisha RT(R) Radiology Start: 01-06-2024 Non-patient / Non-visit [facility] Physician [facility] Work Phone: Start: 01-06-2024 End: 01-06-2024 Subsequent hospital visit by physician Xr [facility] Radiology Comment on above: Polyarthralgia [M25. 50] Start: 01-06-2024 End: 01-06-2024 Office consultation new/estab patient 80 min Tim Plaza MD Work Phone: Rheumatology Comment on above: Polyarthralgia (Prim temi Dx); Positive ALONDRA (antinuclear antibody); Chronic pain syndrome; Dry mouth Start: 12-23-2023 Non-patient / Non-visit [facility] Work Phone: Start: 12-15-2023 End: 12-15-2023 ambulatory [facility] Work Phone: Start: 12-15-2023 End: 12-15-2023 Patient encounter procedure [facility] Work Phone: Start: 11-10-2023 End: 11-10-2023 ambulatory [facility] Work Phone: Start: 11-10-2023 End: 11-10-2023 Patient encounter procedure [facility] Work Phone: Start: 10-16-2023 Non-patient / Non-visit [facility]ician [facility] Work Phone: Start: 10-13-2023 Telephone encounter Ute betancourt MD Work Phone: General Surgery Comment on above: Fit for duty letter Start: 10-13-2023 End: 10-13-2023 ambulatory [facility] Work Phone: Start: 10-13-2023 End: 10-13-2023 Patient encounter procedure [facility] Work Phone: Start: 10-05-2023 Telephone encounter Ute betancourt MD Work Phone: General Surgery Comment on above: return to work fitne ss form Start: 09-30-2023 End: 10-01-2023 ambulatory MARRY GARZABG Facility:[facility] Start: 09-30-2023 End: 09-30-2023 Patient encounter procedure 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 APRN.TRANSFER ENGINEER Work Phone: General Surgery Comment on above: S/P gastrointestinal surgery, follow-up exam (Primary Dx); S/P laparoscopic cholecystectomy Start: 09-23-2023 Telephone encounter Ute betancourt MD Work Phone: General Surgery Comment on above: FMLA Paperwork Start: 09-16-2023 End: 09-16-2023 ambulatory UTE HART Facility:[facility] Start: 09-12-2023 End: 09-13-2023 [facility] Start: 09-10-2023 Encounter for other preprocedural examination MARRY SCHROEDER [facility] Start: 09-10-2023 End: 09-10-2023 ambulatory MARRY MARIAA GARZAJoseBG Facility:[facility] Start: 09-04-2023 End: 09-04-2023 ambulatory UTE HART Facility:[facility] Start: 08-21-2023 End: 08-21-2023 ambulatory MEREDITH BLANCO Facility:[facility] Start: 07-27-2023 Telephone encounter Ute betancourt MD Work Phone: General Surgery Comment on above: Consult Start: 07-23-2023 End: 07-24-2023 ambulatory Roxann HUTCHINS [facility] Start: 07-23-2023 End: 07-23-2023 Patient encounter procedure Roxann HUTCHINS [facility] [place] Start: 07-20-2023 ambulatory Roxann CUONG Facility:[facility] Start: 07-14-2023 End: 07-14-2023 ambulatory Dayanara Thompson Other [employer] Other Start: 07-14-2023 Telephone encounter Dayanara Thompson [facility] [address] Start: 07-11-2023 Office outpatient vi sit 15 minutes Dayanara Thompson [facility] Start: 07-11-2023 End: 07-11-2023 ambulatory DNP Nadege Aly Work Phone: [facility] Work Phone: Start: 07-11-2023 End: 07-11-2023 Departed Referred DNP Nadege Aly Work Phone: [facility] [place] Work Phone: Start: 05-31-2023 End: 05-31-2023 ambulatory Rylee Barrientos Other [employer] Other Start: 05-31-2023 Office outpatient ne w 20 minutes Rylee Barrientos [facility] Start: 10-04-2022 End: 10-05-2022 ambulatory ALVIN SCHROEDER Facility:[facility] Start: 08-05-2022 End: 08-06-2022 ambulatory TRANSFER ENGINEER MARRY PATTIZ Facility:[facility] Start: 06-17-2022 End: 06-18-2022 ambulatory TRANSFER ENGINEER MARRY YAIMA Facility:[facility] Start: 05-30-2022 End: 05-31-2022 ambulatory TRANSFER ENGINEER MARRY YAIMA Facility:[facility] Start: 05-21-2022 End: 05-22-2022 ambulatory TRANSFER ENGINEER MARRY YAIMA Facility:[facility] Start: 05-19-2022 End: 05-20-2022 ambulatory TRANSFER ENGINEER MARRY YAIMA Facility:[facility] Start: 01-22-2022 End: 01-23-2022 ambulatory ALVIN SCHROEDER Facility:[facility] Procedures Date Procedure Procedure Detail Performing Clinician Start: 01-06-2024 Urinalysis Start: 01-06-2024 Radex spine cervical 4 or 5 views Tim Plaza MD Work Phone: Start: 09-16-2023 Antibody screen UTE TRINH Comment on above: Order Comment: Speci men Type: BLOOD SPECIMEN Ordering Facility: [facility] Address: [address] [place] [address] Performed By: #### T SCR #### [employer] [facility] [id number] [address] [place] [address] [place] History of cholecystectomy S/P laparoscopic cholecystectomy 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 APRN.[facility] Work Phone: None (qualifier value) Adonis HUTCHINS Plan of Treatment Date Care Activity Detail Author Start: 01-05-2027 Diabetes Screening Diabetes Screenin g [facility] Start: 09-10-2026 Diabetes Screening Diabetes Screenin g [facility] Start: 05-30-2025 Urine microalbumin profile DTaP,Tdap,Td Vaccine (2 - Td or Tdap) [facility] Start: 04-24-2024 Influenza vaccination Influenz a Vaccine (Season Ended) [facility] Start: 04-19-2024 End: 04-19-2024 Patient encounter procedure 04/19/2024 9:30 AM EDT Office Visit Rheumatology [address] [place] [address] Tim Plaza MD [address] [place] [address] 3 month follow up Rheumatology Comment on above: 3 month follow up Start: 03-07-2024 Bacteria identified in Urine by Culture [facility] Start: 01-15-2024 End: 01-15-2024 Telephone follow-up 01/15/2024 9:00 AM EDT [facility] Rheumatology [address] [address] Tim Plaza MD [address] [place] [address] Virtual follow up; Phone call preferred Rheumatology Comment on above: Virtual follow up; P liat call preferred Start: 01-06-2024 End: 04-06-2024 25-hydroxyvitamin D3 [Mass/volume] in Serum or Plasma [facility] Comment on above: Expected: 01/06/2024 , Expires: 04/06/2024 Start: 01-06-2024 End: 04-06-2024 ALONDRA BY IFA SCREEN [facility] Work Phone: Comment on above: Expected: 01/06/2024 , Expires: 04/06/2024 Start: 01-06-2024 End: 04-06-2024 Cyclic citrullinated peptide IgG Ab [Units/volume] in Serum or Plasma [facility] Comment on above: Expected: 01/06/2024 , Expires: 04/06/2024 Start: 01-06-2024 End: 04-06-2024 DNA double strand Ab [Units/volume] in Serum by Immunoassay [facility] Comment on above: Expected: 01/06/2024 , Expires: 04/06/2024 Start: 01-06-2024 End: 04-06-2024 Extractable nuclear Ab panel - Serum [facility] Comment on above: Expected: 01/06/2024 , Expires: 04/06/2024 Start: 01-06-2024 End: 04-06-2024 PROTEIN ELECTROPHORESIS SERUM W/INTERP [facility] Comment on above: Expected: 01/06/2024 , Expires: 04/06/2024 Start: 07-11-2023 Bacteria identified in Urine by Culture Urine Culture [facility] Start: 04-24-2023 Covid-19 Vaccine ( season) Covid-19 Vaccine () [facility] Start: 04-24-2023 Influenza vaccination Influenza Vacc ine (#1) [facility] Start: 08-24-2022 Depression Assessment Depression Ass essment [facility] Start: 2020 Shingrix Vaccine (1 of 2) Ward grix Vaccine (1 of 2) [facility] Start: 2015 Diabetes Screening Diabetes Screenin g [facility] Start: 2015 Lipid panel Lipid Screening [facility] Start: 2015 Screening for malign ant neoplasm of colon [facility] Start: 2010 Screening for malign ant neoplasm of breast Mammogram Screening [facility] Start: 2000 Screening for malign ant neoplasm of cervix HPV Testing [facility] Start: 1991 Screening for malign ant neoplasm of cervix Pap Testing [facility] Start: 1989 Hepatitis B Vaccine (1 of 3 - 19+ 3-dose series) Hepatitis B Vaccine (1 of 3 - 19+ 3-dose series) [facility] Start: 1988 Annual PCP Team Applied Anthropologist suleman Disease Visit Annual PCP Team Chronic Disease Visit [facility] Start: 1988 Hepatitis C screening Hepatitis C Sc reening [facility] Start: 1988 HIV screening HIV Screening [facility] Start: 1988 Spirometry Spirometry [facility] Start: 1976 Pneumococcal vaccination Pneum ococcal Vaccine (1 of 2 - PCV) [facility] Start: 1970 Hepatitis B Vaccine (1 of 3 - 3-dose series) Hepatitis B Vaccine (1 of 3 - 3-dose series) [facility] Adenosine monophosphate.cyclic [Moles/volume] in Serum or Plasma [facility] Comprehensive metabo lic 2000 panel - Serum or Plasma [facility] End: 09-01-2024 Ct abdomen w/contrast material CT LIVER W IVCON Radiology Routine Calculus of gallbladder without cholecystitis without obstruction Liver mass 1 Occurrences starting 08/03/2023 until 09/01/2024 [facility] Work Phone: Comment on above: 1 Occurrences starti ng 08/03/2023 until 09/01/2024 Rheumatoid factor [Units/volume] in Serum or Plasma [facility] Immunizations Immunization Date Immunization Notes Care Provider Fa cility 12-29-2020 SARS-CoV-2 (COVID-19 ) mRNA BNT-162b2 vax Roxann ReocarL [facility] 12-08-2020 SARS-CoV-2 (COVID-19 ) mRNA BNT-162b2 vax Roxann NILL [facility] 05-30-2015 tetanus toxoid, reduced diphtheria toxoid, and acellular pertussis vaccine, adsorbed Rylee Barrientos Other [facility] NEGATED: Highlighted row has not occurred!07-23-2023 influenza virus vaccine, unspecified formulation Roxann ReocarErika [facility] Payers Date Payer Category Payer Self-pay [id number] 2021 Unknown [employer] PPO OOS [id number] 2021-Present [phone] [address] [place] [address] PPO [id number] 1970 Unknown [id number] 1970 Unknown [id number] 1970 Unknown [id number] 1970 Unknown [id number] 1970 Unknown [id number] 1970 Unknown [id number] 1970 Unknown [id number] 1970 Unknown [id number] 1959 Unknown [id number] 1959 Unknown [id number] Unknown [id number] Unknown [id number] Unknown [facility] [id number] Social History Date Type Detail Facility Unknown if ever smoked [employer] Other Start: 09-04-2023 End: 09-30-2023 Sex Assigned At [facility] Start: 02-07-2019 End: 12-15-2023 Tobacco smoking status UTIS Never smoked tobacco (finding) [facility] Start: 1970 Sex Assigned At Female F [facility] Tobacco smoking status Never [facility] [place] Tobacco smoking status [facility] Tobacco smoking consumption unknown [facility] Start: 1970 Sex Assigned At Not on file [facility] Start: 09-10-2023 Tobacco use and exposure Smokeless tobacco non-user [facility] Start: 09-30-2023 End: 01-06-2024 Alcohol intake Ex-drinker (finding) [facility] Start: 09-04-2023 End: 09-30-2023 History of Social function [facility] Functional Status Date Assessment Result Facility 07-23-2023 Functional Status N/A [facility] [place] Clinical Notes 05-31-2023 to 01-15-2024 Tim Plaza MD - 01/15/2024 9:03 AM EDTPatient InstructionsYamil clay, RT(R) - 01/06/2024 10:59 AM EDTSTim aguilar MD - 01/06/2024 9:30 AM EDT Note Date & Type Note Facility 01-15-2024 Note HNO ID: [id number] Author: TIM PLAZA MD Service: ? Author Type: Physician Type: Progress Notes Filed: 01/15/2024 09:34 Note Text: Rheumatology Outpatient Clinic Date of Service: 01/15/2024 Patient: Stacie Davidson Medical Record: [id number] Primary Care Physician: Marry Schroeder CNP, TRANSFER ENGINEER Referring Provider: Marry Schroeder CNP ([facility]) [address] [facility] [address] Last Rheumatology visit: 01/06/2024 (with Tim Plaza) Chief complaint: Follow Up The patient's identity and physical location were verified at the time of this visit. Either the patient or their legal customer sales representative has been informed of the risks and benefits of virtual/phone visit and alternative treatment through a remote evaluation and consents to proceed with the evaluation remotely. History of Present Illness Stacie Davidson is a 53 year old female with medical history of fibromyalgia, depression, history of gastric ulcer(with NSAIDs use), dementia, hepatic hemangioma, GERD, asthma, nephrolithiasis, status post cholecystectomy, presents on 01/15/2024 for a phone visit for evaluation of Follow Up. She is currently taking celecoxib. Stacie is both RF - 9 (01/06/2024) and CCP - 13.5 (01/06/2024) negative. Her most recent ALONDRA was positive (01/06/2024). HISTORY OF PRESENT ILLNESS Seen as new patient on 01/06/2024, per HPI- Patient reports having widespread pain for 5 years, getting worse. Pain is all over her body, she feels like she is hit by car. Pain is worst over low back and right lower leg. Right leg feels heavy sometimes. Pain is constant whole day, worse with activities Has good and bad days, symptoms are worse in cold, damp weather Right leg swelling sometimes to the size of thigh, usually end of day, gets better with elevation. She also reports fatigue Reports dry eyes, light sensitivity, has episodes of excessive tearing Has dry mouth, drinks water often Was found to have positive ALONDRA, results not available to me Saw Rheum 2 yrs ago- diagnosed fibromyalgia, however has not been treated for this by PCP, has also not been referred to fibromyalgia specialist. She also reports pins and needles in the hands R> L. Wakes up at night with numbness and tingling over hand No joint swelling EMS- few hours Reports brain fog, allodynia, does not feel rested in am Takes tylenol that helps to some extent. Denies history of inflammatory eye disease, inflammatory bowel disease, psoriasis, history of kidney disease/biopsy, miscarriages, blood clots, malignancy, pleural/pericardial effusion, CHF, CAD, CVA. During initial evaluation on 01/06/2024-she did not have any evidence of inflammatory arthritis, no synovitis or effusion on exam. Her pains was deemed to be related to osteoarthritis/chronic pain syndrome. Further workup was sent. 12/2023 UA-no proteinuria/hematuria Rheumatoid factor/CCP negative SPEP-unremarkable Crithidia negative Vitamin D 27 Sed rate/CRP normal CBC/CMP unremarkable CK normal C3/C4 normal ALONDRA positive, 1: 160 dsDNA 514 Anti-DONALD negative 12/2023 Radiograph cervical spine- 1. Mild cervical spondylosis. 2. Cervical spine degenerative facet arthrosis Radiograph bilateral knees-unremarkable Radiograph bilateral hands-mild degenerative changes Radiograph bilateral feet-unremarkable Radiograph SI joint-no sacroiliitis Radiograph lumbar spine- 1. L1-L2 degenerative disc disease. 2. Lower lumbar spine degenerative facet arthrosis. INTERVAL HISTORY Today She had phone visit for follow-up She continues to do same. Denies any new symptoms. Patient-Entered Data PAIN EVALUATION 01/11/2024 1245 Pain Level: 7 Description: Aching;Sore;Stiffness Intervention/Comfort measure: Medication;Pillow support;Positioning PROMIS Assessments 01/11/2024 PROMIS Assessments Physical Health Percentile 4 Mental Health Percentile 5 Pain Score 2 Pain Interference Percentile 2 Fatigue Percentile 10 Physical Function Percentile 16 RAPID 3 [place] Activities of Daily Living 01/11/2024 12:50 PM Dress self? Without ANY difficulty Get in and out of bed? Without ANY difficulty Walk outdoors? Without ANY difficulty Wash and dry body? Without ANY difficulty Get in and out of car? Without ANY difficulty RAPID 3 Disease Activity Weighed Score Levels: 0 - 1: Near Remission 1.3 - 2.0: Low Severity 2.3 - 4.0: Moderate Severity 4.3 - 10.0: High Severity 01/11/2024 RAPID-3 Weighed Score RAPID 3 Weighed Score 4.22 Review of Systems Review of Systems CONSTITUTION: Negative for: Fever and Recent weight change HEENT: Positive for: Dry mouth RESPIRATORY: GASTROINTESTINAL: MUSCULOSKELETAL: Positive for: Arthralgias, Myalgias and Morning Joint Stiffness NEUROLOGICAL: Positive for: Headaches SKIN: Positive for: Hair loss and Nail changes EYES: Positive for: Eye redness and Eye dryness CARDIOVASCULAR: Positive for: Leg swelling GENITOURINARY: HEMATOL (more content not included)... [facility] 01-15-2024 History of Present illness Narrative Images from the original note were not included. Rheumatology Outpatient Clinic Date of Service: 01/15/2024 Patient: Stacie Davidson Medical Record: [id number] Primary Care Physician: Marry Schroeder CNP, TRANSFER ENGINEER Referring Provider: Marry Schroeder CNP ([facility]) [address] [facility] [address] Last Rheumatology visit: 01/06/2024 (with Tim Plaza) Chief complaint: Follow Up The patient's identity and physical location were verified at the time of this visit. Either the patient or their legal customer sales representative has been informed of the risks and benefits of virtual/phone visit and alternative treatment through a remote evaluation and consents to proceed with the evaluation remotely. History of Present Illness Stacie Davidson is a 53 year old female with medical history of fibromyalgia, depression, history of gastric ulcer(with NSAIDs use), dementia, hepatic hemangioma, GERD, asthma, nephrolithiasis, status post cholecystectomy, presents on 01/15/2024 for a phone visit for evaluation of Follow Up. She is currently taking celecoxib. Stacie is both RF - 9 (01/06/2024) and CCP - 13.5 (01/06/2024) negative. Her most recent ALONDRA was positive (01/06/2024). HISTORY OF PRESENT ILLNESS Seen as new patient on 01/06/2024, per HPI- Patient reports having widespread pain for 5 years, getting worse. Pain is all over her body, she feels like she is hit by car. Pain is worst over low back and right lower leg. Right leg feels heavy sometimes. Pain is constant whole day, worse with activities Has good and bad days, symptoms are worse in cold, damp weather Right leg swelling sometimes to the size of thigh, usually end of day, gets better with elevation. She also reports fatigue Reports dry eyes, light sensitivity, has episodes of excessive tearing Has dry mouth, drinks water often Was found to have positive ALONDRA, results not available to me Saw Rheum 2 yrs ago- diagnosed fibromyalgia, however has not been treated for this by PCP, has also not been referred to fibromyalgia specialist. She also reports pins and needles in the hands R> L. Wakes up at night with numbness and tingling over hand No joint swelling EMS- few hours Reports brain fog, allodynia, does not feel rested in am Takes tylenol that helps to some extent. Denies history of inflammatory eye disease, inflammatory bowel disease, psoriasis, history of kidney disease/biopsy, miscarriages, blood clots, malignancy, pleural/pericardial effusion, CHF, CAD, CVA. During initial evaluation on 01/06/2024-she did not have any evidence of inflammatory arthritis, no synovitis or effusion on exam. Her pains was deemed to be related to osteoarthritis/chronic pain syndrome. Further workup was sent. 12/2023 UA-no proteinuria/hematuria Rheumatoid factor/CCP negative SPEP-unremarkable Crithidia negative Vitamin D 27 Sed rate/CRP normal CBC/CMP unremarkable CK normal C3/C4 normal ALONDRA positive, 1: 160 dsDNA 514 Anti-DONALD negative 12/2023 Radiograph cervical spine- 1. Mild cervical spondylosis. 2. Cervical spine degenerative facet arthrosis Radiograph bilateral knees-unremarkable Radiograph bilateral hands-mild degenerative changes Radiograph bilateral feet-unremarkable Radiograph SI joint-no sacroiliitis Radiograph lumbar spine- 1. L1-L2 degenerative disc disease. 2. Lower lumbar spine degenerative facet arthrosis. INTERVAL HISTORY Today She had phone visit for follow-up She continues to do same. Denies any new symptoms. Patient-Entered Data PAIN EVALUATION 01/11/2024 1245 Pain Level: 7 Description: Aching;Sore;Stiffness Intervention/Comfort measure: Medication;Pillow support;Positioning PROMIS Assessments 01/11/2024 PROMIS Assessments Physical Health Percentile 4 Mental Health Percentile 5 Pain Score 2 Pain Interference Percentile 2 Fatigue Percentile 10 Physical Function Percentile 16 RAPID 3 [place] Activities of Daily Living 01/11/2024 12:50 PM Dress self? Without ANY difficulty Get in and out of bed? Without ANY difficulty Walk outdoors? Without ANY difficulty Wash and dry body? Without ANY difficulty Get in and out of car? Without ANY difficulty RAPID 3 Disease Activity Weighed Score Levels: 0 - 1: Near Remission 1.3 - 2.0: Low Severity 2.3 - 4.0: Moderate Severity 4.3 - 10.0: High Severity 01/11/2024 RAPID-3 Weighed Score RAPID 3 Weighed Score 4.22 Review of Systems Review of Systems CONSTITUTION: Negative for: Fever and Recent weight change HEENT: Positive for: Dry mouth RESPIRATORY: GASTROINTESTINAL: MUSCULOSKELETAL: Positive for: Arthralgias, Myalgias and Morning Joint Stiffness NEUROLOGICAL: Positive for: Headaches SKIN: Positive for: Hair loss and Nail changes EYES: Positive for: Eye redness and Eye dryness CARDIOVASCULAR: Positive for: Leg swelling GENITOURINARY: HEMATOLOGIC/LYMPHATIC: Negative for: Swollen glands Fever: Denies Change in weight: Denies Lymphadenopathy: Denies Mucosal ulcers: Denies Skin rash: Denies Chest Pain: Denies Dyspnea: Denies Cough : Denies Difficulty swallowing: Denies Nausea/vomiting: Denies Heartburn: Denies Abdominal Pain: Denies Diarrhea/constipation :Denies Blood in stool : Denies Dysuria/hematuria: Denies Muscle pain: Denies Muscle weakness: Denies Numbness: Denies Headache: Denies change in vision: Denies Raynaud's: Denies Sicca: Denies Past Medical History PAST MEDICAL HISTORY Diagnosis Date Asthma Depression GERD (gastroesophageal reflux disease) Past Surgical History PAST SURGICAL HISTORY Procedure Laterality Date LAPAROSCOPIC CHOLECYSTECTOMY 09/16/2023 PAST SURGICAL HISTORY OF Left 1988 lumpectomy Allergy ALLERGIES Allergen Reactions Sulfa (Sulfonamide * Rash Tetracyclines Itching, Rash, Shortness of Breath Family History Mother has Psoriasis. The patient denies family history of SLE, RA, Sarcoidosis, Scleroderma, IBD No family history on file. Social History Social History Tobacco Use Smoking status: Never Smokeless tobacco: Never Vaping Use Vaping Use: Never used Substance Use Topics Alcohol use: Not Currently Drug use: Never Current Medications Current Outpatient Medications Medication Sig celecoxib (CELEBREX) 100 mg capsule Take 1 capsule by mouth two times a day as needed. cetirizine (ZYRTEC) 10 mg tablet Take by mouth every 12 hours. Phentermine HCl 37.5 mg capsule TAKE 1 CAPSULE BY MOUTH EVERY DAY FOR 30 DAYS. administer 30 minutes before or 1-2 hours after breakfast traZODone (DESYREL) 50 mg tablet TAKE 1 TABLET BY MOUTH EVERY DAY AT BEDTIME NEEDED FOR SLEEP FOR 30 DAYS albuterol (PROVENTIL) 2.5 mg /3 mL (0.083 %) nebulizer solution Use 3 mL via nebulizer four times a day as needed for wheezing/shortness of breath. Inhale by nebulizer over 5-15 minutes buPROPion SR (WELLBUTRIN SR) 150 mg 12 hr tablet Wellbutrin citalopram (CELEXA) 40 mg tablet Take 40 mg by mouth. omeprazole (PRILOSEC) 40 mg capsule Take 40 mg by mouth. diphenhydrAMINE (BENADRYL) 25 mg capsule Take both [...] the CT contrast administration guidelines link. No current facility-administered medications for this visit. Labs Latest Ref Rng & Units 09/12/2023 01/06/2024 CBC WBC 3.70 - 11.00 k/uL 4.12 4.63 Hemoglobin 11.5 - 15.5 g/dL 13.6 14.1 Hematocrit 36.0 - 46.0 % 41.4 44.3 Platelet Count 150 - 400 k/uL 287 285 Abs Neut (ANC) 1.45 - 7.50 k/uL 1.79 2.08 Abs Lymph 1.00 - 4.00 k/uL 1.67 1.86 Latest Ref Rng & Units 09/10/2023 01/06/2024 CMP Sodium 136 - 144 mmol/L 136 140 Potassium 3.7 - 5.1 mmol/L 4.6 4.0 Chloride 97 - 105 mmol/L 100 100 CO2 22 - 30 mmol/L 28 25 Glucose 74 - 99 mg/dL 93 92 BUN 7 - 21 mg/dL 11 13 Creatinine 0.58 - 0.96 mg/dL 0.74 0.75 Calcium 8.5 - 10.2 mg/dL 10.2 9.8 AST 13 - 35 U/L 35 21 ALT 7 - 38 U/L 124 22 Alkaline Phosphatase 34 - 123 U/L 130 77 Latest Ref Rng & Units 01/06/2024 ESR, WSR WSR 0 - 20 mm/hr 5 Latest Ref Rng & Units 01/06/2024 CRP CRP <0.9 mg/dL <0.3 Latest Ref Rng & Units 01/06/2024 C3, C4 C3 86 - 166 mg/dL 155 C4 13 - 46 mg/dL 25 Latest Ref Rng & Units 01/06/2024 CK CK 42 - 196 U/L 119 Latest Ref Rng & Units 01/06/2024 RF and CCP Rheumatoid Factor <16 IU/mL <10 CCP Antibody IgG Qualitative Negative Negative CCP Antibody, IgG <20 Units <15 Latest Ref Rng & Units 01/06/2024 Antibodies ALONDRA Negative Positive ALONDRA Titer 1:160 ALONDRA Pattern Nuclear homogeneous DNA Antibody <=200 IU/mL 514 Crithidia lucillae Negative Negative Anti-Sm <1.0 AI <0.2 Sm Antibody Negative Negative Ribosomal INSTRUCTOR WATCH ASSEMBLY Ab <1.0 AI <0.2 Ribosomal INSTRUCTOR WATCH ASSEMBLY Qualitative Negative Negative Chromatin Ab <1.0 AI <0.2 Chromatin Ab Qual Negative Negative SSA Antibody Qual Negative Negative Anti-SSA <1.0 AI 0.3 Anti-SSB <1.0 AI <0.2 INSTRUCTOR WATCH ASSEMBLY Antibody QUAL Negative Negative Scleroderma Ab Qual Negative Negative Scl-70 Abs, EIA <1.0 AI <0.2 Centromere Ab <1.0 AI <0.2 CENTROMERE AB QUAL Negative Negative MARIAA-1 ANTIBODY, IGG <1.0 AI <0.2 MARIAA 1 ANTIBODY QUAL Negative Negative Latest Ref Rng & Units 01/06/2024 Urinalysis Protein, Urine Negative Negative RBC, Urine 0-2 /HPF 0-2 /HPF Latest Ref Rng & Units 01/06/2024 Vitamin D Vitamin D 25 Hydroxy 31.0 - 80.0 ng/mL 27.4 Imaging Last XR Hand/Finger - Impression Only XR HAND GENERAL 3V PA/LAT/OBL BILATERAL Exam End: 01/06/2024 11:04 AM (Final result) Impression: IMPRESSION: 1. Mild degenerative arthrosis of both hands. Fermentologist: CLARY Transcribe Date/Time: Jan 06 2024 12:18P ... Last MRI Hand - Impression Only No resulted procedures found. Last XR Chest - Impression Only No resulted procedures found. Last XR Cervical Spine - Impression Only XR CERV OTHER 4V AP/LAT/OBL Exam End: 01/06/2024 11:04 AM (Final result) Impression: IMPRESSION: 1. Mild cervical spondylosis. 2. Cervical spine degenerative facet arthrosis. Fermentologist: CLARY Transcribe Date/Time: Jan 06 2024 12:16P... Health Maintenance Current Immunizations Never Reviewed Name Date COVID-19 vaccine, monovalent (eRelyx) 12/29/2020 , 12/08/2020 Physical Exam Phone visit Diagnoses: (R76.8) Ds DNA antibody positive (primary encounter diagnosis) (M25.50) Polyarthralgia (R76.8) Positive ALONDRA (antinuclear antibody) (G89.4) Chronic pain syndrome Impression and Plan 1. Polyarthralgia with positive ALONDRA and double-stranded DNA ALONDRA 1: 160 with dsDNA 514 however crithidia is negative, other anti-DONALD is negative, C3/C4 is normal, no cytopenia or renal failure, has widespread body pain including muscle and joint pain with fatigue, brain fog, allodynia, poor sleep. Also reports dry eyes and dry mouth which has been worsening over time No evidence of inflammatory arthritis, She does not meet criteria for systemic lupus, although has double-stranded DNA elevated, crithidia is negative and no other signs and symptoms suggestive of systemic lupus, her pain is likely related to osteoarthritis/chronic pain syndrome, no evidence of inflammatory arthritis Start Celebrex 100 mg twice daily as needed for pain Recommend PCP to consider switching her antidepressant to duloxetine or adding duloxetine which may help with chronic pain and pain from osteoarthritis as well Consider referral to pain recovery clinic/fibromyalgia clinic for further management of her pain Due to elevated double-stranded DNA, I will follow-up in 3 months to monitor evaluation of signs and symptoms related to double-stranded DNA and repeat blood tests. 2. Healthcare maintenance/Malignancy screening Defer to PCP Orders this visit: [facility] on 01/15/24 celecoxib (CELEBREX) 100 mg capsule Return in about 3 months (around 04/16/2024). I spent a total of 25 minutes on the date of the service This note was partially generated with the assistance of [employer] voice recognition software. An attempt was made to correct any dictation errors however there may be some incorrect words, spellings, and punctuation. ___ Tim Plaza MD, [facility] Rheumatology documented in this encounter [facility] 01-06-2024 Note HNO ID: [id number] Author: YAMIL JUÁREZ RT(R) Service: ? Author Type: Technologist Type: Progress Notes Filed: 01/06/2024 11:01 Note Text: Radiology Service Progress Note PATIENT NAME: Stacie Davidson DATE OF SERVICE: January 06, 2024 TIME: 10:59 AM PATIENT IDENTITY VERIFICATION COMPLETED USING TWO (2) IDENTIFIERS: Name and Date of confirmed by patient verbally. FALL SCREENING: Has the patient had 2 falls in the last year or 1 fall with injury or currently using an Ambulatory Assistive Device (Walker, Cane, Wheelchair, Crutches, etc.)? No PATIENT GENDER DATA: Female. status: : No status: NO. PATIENT RELEVANT IMPLANT DATA REVIEWED: Yes PATIENT PRESENTS WITH AN IMPLANTABLE OR ATTACHED SENIOR TERADATA DEVELOPER: No RADIOLOGY DEPARTMENT: General X-ray: Exam(s) Completed: Spine X-Ray(s): Cervical AP / LAT / OBL and Lumbar AP / LAT / L5-S1 Pelvis X-Ray: sacroiliac joints Lower Extremity X-Ray(s): Knee, AP / Lat / Tunne / Merchant Bilateral and Wt. Bearing and Feet, Bilateral and Wt. Bearing Upper Extremity X-Ray(s): Hand, bilateral PERIPHERAL IV DATA: Not applicable SIGNED BY: Yamil Juárez, RT(R) January 06, 2024 10:59 AM [facility] 01-06-2024 Note HNO ID: [id number] Author: TIM PLAZA MD Service: ? Author Type: Physician Type: Progress Notes Filed: 01/06/2024 11:17 Note Text: Rheumatology Outpatient Clinic Date of Service: 01/06/2024 Patient: Stacie Davidson Medical Record: [id number] Primary Care Physician: Marry Schroeder CNP, CNP Referring Provider: Marry Schroeder CNP ([facility]) [address] [facility] [address] Last Rheumatology visit: None at [facility] Chief complaint: Consult (Pos alondra test. ), Pain (X few of yrs of ongoing generalized pain. ), and Eye Problem (Bi-lateral dry eyes.) Consultation requested by Marry Schroeder CNP for an opinion regarding arthritis. My final recommendations will be communicated back to the requesting physician by way of shared Medical record or letter to requesting physician via US mail. History of Present Illness Stacie Davidson is a 53 year old female with medical history of fibromyalgia, depression, history of gastric ulcer(with NSAIDs use), dementia, hepatic hemangioma, GERD, asthma, nephrolithiasis, status post cholecystectomy, presents on 01/06/2024 for an in-person visit for evaluation of Consult (Pos alondra test. ), Pain (X few of yrs of ongoing generalized pain. ), and Eye Problem (Bi-lateral dry eyes.). HISTORY OF PRESENT ILLNESS Patient reports having widespread pain for 5 years, getting worse. Pain is all over her body, she feels like she is hit by car. Pain is worst over low back and right lower leg. Right leg feels heavy sometimes. Pain is constant whole day, worse with activities Has good and bad days, symptoms are worse in cold, damp weather Right leg swelling sometimes to the size of thigh, usually end of day, gets better with elevation. She also reports fatigue Reports dry eyes, light sensitivity, has episodes of excessive tearing Has dry mouth, drinks water often Was found to have positive ALONDRA, results not available to me Saw Rheum 2 yrs ago- diagnosed fibromyalgia, however has not been treated for this by PCP, has also not been referred to fibromyalgia specialist. She also reports pins and needles in the hands R> L. Wakes up at night with numbness and tingling over hand No joint swelling EMS- few hours Reports brain fog, allodynia, does not feel rested in am Takes tylenol that helps to some extent. Denies history of inflammatory eye disease, inflammatory bowel disease, psoriasis, history of kidney disease/biopsy, miscarriages, blood clots, malignancy, pleural/pericardial effusion, CHF, CAD, CVA. Patient-Entered Data PAIN EVALUATION 01/06/2024 0934 Pain Level: 6 Pain Location: Generalized Description: Aching Duration Units: Years Frequency: Continuous PROMIS Assessments No data to display RAPID 3 [place] Activities of Daily Living No Data Dress self? - Get in and out of bed? - Walk outdoors? - Wash and dry body? - Get in and out of car? - RAPID 3 Disease Activity Weighed Score Levels: 0 - 1: Near Remission 1.3 - 2.0: Low Severity 2.3 - 4.0: Moderate Severity 4.3 - 10.0: High Severity No data to display Review of Systems ROS RHEUMATOLOGY Fever: Denies Change in weight: Denies Lymphadenopathy: Denies Mucosal ulcers: Denies Skin rash: Denies Chest Pain: Denies Dyspnea: Denies Cough : Denies Difficulty swallowing: Denies Nausea/vomiting: Denies Heartburn: Denies Abdominal Pain: Denies Diarrhea/constipation :Denies Blood in stool : Denies Dysuria/hematuria: Denies Muscle pain: Denies Muscle weakness: Denies Numbness: Denies Headache: Denies change in vision: Denies Raynaud's: Denies Sicca: Denies Past Medical History PAST MEDICAL HISTORY Diagnosis Date Asthma Depression GERD (gastroesophageal reflux disease) Past Surgical History PAST SURGICAL HISTORY Procedure Laterality Date LAPAROSCOPIC CHOLECYSTECTOMY 09/16/2023 PAST SURGICAL HISTORY OF Left 1988 lumpectomy Allergy ALLERGIES Allergen Reactions Sulfa (Sulfonamide * Rash Tetracyclines Itching, Rash, Shortness of Breath Family History Mother has Psoriasis. The patient denies family history of SLE, RA, Sarcoidosis, Scleroderma, IBD No family history on file. Social History Social History Tobacco Use Smoking status: Never Smokeless tobacco: Never Vaping Use Vaping Use: Never used Substance Use Topics Alcohol use: Not Currently Drug use: Never Current Medications Current Outpatient Medications Medication Sig cetirizine (ZYRTEC) 10 mg tablet Take by mouth every 12 hours. Phentermine HCl 37.5 mg capsule TAKE 1 CAPSULE BY MOUTH EVERY DAY FOR 30 DAYS. administer 30 minutes before or 1-2 hours after breakfast traZODone (DESYREL) 50 mg tablet TAKE 1 TABLET BY MOUTH EVERY DAY AT BEDTIME NEEDED FOR SLEEP FOR 30 DAYS albuterol (PROVENTIL) 2.5 mg /3 mL (0.083 %) nebulizer solution Use 3 mL via nebulizer four times a day as needed for wheezing/shortness of breath. Inhale by nebuli (more content not included)... [facility] 01-06-2024 Instructions Tim Plaza MD - 01/06/2024 11:16 AM EDT Management of dry mouth - Avoid oral irritants such as alcohol, coffee, nicotine and acidic beverages that can accelerate cavity formation -Massage the salivary glands-Place fingers on the cheeks and milk of the parotid gland in anterior direction. For sublingual glands, push tongue down on the floor of the mouth. May also try warm massage of the parotid glands. -Massage the gums. Store sigala pit or plastic button in the mouth and move it around the gingival tissues which can stimulate the saliva production. Use soft bristle toothbrush without water or toothpaste to massage gums -Biotene mouthwash has shown to help with dry mouth. For night time may try Xylimelts. - Saliva substitute eg salivart, Xerolube can be helpful - Use sugar-free, xylitol containing gum or lozenges -Try ice chips or water spray at the back of the throat rather than drinking frequent sips of water which may actually wash away the little saliva present in the mouth. - Use humidifier when heater is on - Drinking green tea once a day may help increase salivary flow, tea mug may be used as warm compress for the parotid glands. - Avoid medications that can worsen sicca symptoms - Avoid smoking - Medications e.g pilocarpine and cevimeline may help stimulate salivary flow Avoid these medications or use with careful monitoring in patients with glaucoma, asthma, patient is on beta-blockers. Possible side effects include flushing, sweating, increased secretion, GI disturbances. Management of dry eyes -Avoid ceiling fan -Limit screen time, blink often, close eyes for 20 seconds of screen time documented in this encounter [facility] 01-06-2024 History of Present illness Narrative Radiology Service Progress Note PATIENT NAME: Stacie Davidson DATE OF SERVICE: January 06, 2024 TIME: 10:59 AM PATIENT IDENTITY VERIFICATION COMPLETED USING TWO (2) IDENTIFIERS: Name and Date of confirmed by patient verbally. FALL SCREENING: Has the patient had 2 falls in the last year or 1 fall with injury or currently using an Ambulatory Assistive Device (Walker, Cane, Wheelchair, Crutches, etc.)? No PATIENT GENDER DATA: Female. status: : No status: NO. PATIENT RELEVANT IMPLANT DATA REVIEWED: Yes PATIENT PRESENTS WITH AN IMPLANTABLE OR ATTACHED SENIOR TERADATA DEVELOPER: No RADIOLOGY DEPARTMENT: General X-ray: Exam(s) Completed: Spine X-Ray(s): Cervical AP / LAT / OBL and Lumbar AP / LAT / L5-S1 Pelvis X-Ray: sacroiliac joints Lower Extremity X-Ray(s): Knee, AP / Lat / Tunne / Merchant Bilateral and Wt. Bearing and Feet, Bilateral and Wt. Bearing Upper Extremity X-Ray(s): Hand, bilateral PERIPHERAL IV DATA: Not applicable SIGNED BY: RT Shola(R) January 06, 2024 10:59 AM documented in this encounter [facility] 01-06-2024 History of Present illness Narrative Images from the original note were not included. Rheumatology Outpatient Clinic Date of Service: 01/06/2024 Patient: Stacie Davidson Medical Record: [id number] Primary Care Physician: aMrry Schroeder CNP, TRANSFER ENGINEER Referring Provider: Marry Schroeder CNP ([facility]) [address] [facility] [address] Last Rheumatology visit: None at [facility] Chief complaint: Consult (Pos alondra test. ), Pain (X few of yrs of ongoing generalized pain. ), and Eye Problem (Bi-lateral dry eyes.) Consultation requested by Marry Schroeder CNP for an opinion regarding arthritis. My final recommendations will be communicated back to the requesting physician by way of shared Medical record or letter to requesting physician via US mail. History of Present Illness Stacie Davidson is a 53 year old female with medical history of fibromyalgia, depression, history of gastric ulcer(with NSAIDs use), dementia, hepatic hemangioma, GERD, asthma, nephrolithiasis, status post cholecystectomy, presents on 01/06/2024 for an in-person visit for evaluation of Consult (Pos alondra test. ), Pain (X few of yrs of ongoing generalized pain. ), and Eye Problem (Bi-lateral dry eyes.). HISTORY OF PRESENT ILLNESS Patient reports having widespread pain for 5 years, getting worse. Pain is all over her body, she feels like she is hit by car. Pain is worst over low back and right lower leg. Right leg feels heavy sometimes. Pain is constant whole day, worse with activities Has good and bad days, symptoms are worse in cold, damp weather Right leg swelling sometimes to the size of thigh, usually end of day, gets better with elevation. She also reports fatigue Reports dry eyes, light sensitivity, has episodes of excessive tearing Has dry mouth, drinks water often Was found to have positive ALONDRA, results not available to me Saw Rheum 2 yrs ago- diagnosed fibromyalgia, however has not been treated for this by PCP, has also not been referred to fibromyalgia specialist. She also reports pins and needles in the hands R> L. Wakes up at night with numbness and tingling over hand No joint swelling EMS- few hours Reports brain fog, allodynia, does not feel rested in am Takes tylenol that helps to some extent. Denies history of inflammatory eye disease, inflammatory bowel disease, psoriasis, history of kidney disease/biopsy, miscarriages, blood clots, malignancy, pleural/pericardial effusion, CHF, CAD, CVA. Patient-Entered Data PAIN EVALUATION 01/06/2024 0934 Pain Level: 6 Pain Location: Generalized Description: Aching Duration Units: Years Frequency: Continuous PROMIS Assessments No data to display RAPID 3 [place] Activities of Daily Living No Data Dress self? - Get in and out of bed? - Walk outdoors? - Wash and dry body? - Get in and out of car? - RAPID 3 Disease Activity Weighed Score Levels: 0 - 1: Near Remission 1.3 - 2.0: Low Severity 2.3 - 4.0: Moderate Severity 4.3 - 10.0: High Severity No data to display Review of Systems ROS RHEUMATOLOGY Fever: Denies Change in weight: Denies Lymphadenopathy: Denies Mucosal ulcers: Denies Skin rash: Denies Chest Pain: Denies Dyspnea: Denies Cough : Denies Difficulty swallowing: Denies Nausea/vomiting: Denies Heartburn: Denies Abdominal Pain: Denies Diarrhea/constipation :Denies Blood in stool : Denies Dysuria/hematuria: Denies Muscle pain: Denies Muscle weakness: Denies Numbness: Denies Headache: Denies change in vision: Denies Raynaud's: Denies Sicca: Denies Past Medical History PAST MEDICAL HISTORY Diagnosis Date Asthma Depression GERD (gastroesophageal reflux disease) Past Surgical History PAST SURGICAL HISTORY Procedure Laterality Date LAPAROSCOPIC CHOLECYSTECTOMY 09/16/2023 PAST SURGICAL HISTORY OF Left 1988 lumpectomy Allergy ALLERGIES Allergen Reactions Sulfa (Sulfonamide * Rash Tetracyclines Itching, Rash, Shortness of Breath Family History Mother has Psoriasis. The patient denies family history of SLE, RA, Sarcoidosis, Scleroderma, IBD No family history on file. Social History Social History Tobacco Use Smoking status: Never Smokeless tobacco: Never Vaping Use Vaping Use: Never used Substance Use Topics Alcohol use: Not Currently Drug use: Never Current Medications Current Outpatient Medications Medication Sig cetirizine (ZYRTEC) 10 mg tablet Take by mouth every 12 hours. Phentermine HCl 37.5 mg capsule TAKE 1 CAPSULE BY MOUTH EVERY DAY FOR 30 DAYS. administer 30 minutes before or 1-2 hours after breakfast traZODone (DESYREL) 50 mg tablet TAKE 1 TABLET BY MOUTH EVERY DAY AT BEDTIME NEEDED FOR SLEEP FOR 30 DAYS albuterol (PROVENTIL) 2.5 mg /3 mL (0.083 %) nebulizer solution Use 3 mL via nebulizer four times a day as needed for wheezing/shortness of breath. Inhale by nebulizer over 5-15 minutes buPROPion SR (WELLBUTRIN SR) 150 mg 12 hr tablet Wellbutrin citalopram (CELEXA) 40 mg tablet Take 40 mg by mouth. omeprazole (PRILOSEC) 40 mg capsule Take 40 mg by mouth. diphenhydrAMINE (BENADRYL) 25 mg capsule Take both [...] CT contrast administration guidelines link. Lactobacillus acidophilus (PROBIOTIC ORAL) Take by mouth once daily. (Patient not taking: Reported on 01/06/2024) No current facility-administered medications for this visit. Labs Latest Ref Rng & Units 09/12/2023 CBC WBC 3.70 - 11.00 k/uL 4.12 Hemoglobin 11.5 - 15.5 g/dL 13.6 Hematocrit 36.0 - 46.0 % 41.4 Platelet Count 150 - 400 k/uL 287 Abs Neut (ANC) 1.45 - 7.50 k/uL 1.79 Abs Lymph 1.00 - 4.00 k/uL 1.67 Latest Ref Rng & Units 09/10/2023 CMP Sodium 136 - 144 mmol/L 136 Potassium 3.7 - 5.1 mmol/L 4.6 Chloride 97 - 105 mmol/L 100 CO2 22 - 30 mmol/L 28 Glucose 74 - 99 mg/dL 93 BUN 7 - 21 mg/dL 11 Creatinine 0.58 - 0.96 mg/dL 0.74 Calcium 8.5 - 10.2 mg/dL 10.2 AST 13 - 35 U/L 35 ALT 7 - 38 U/L 124 Alkaline Phosphatase 34 - 123 U/L 130 Imaging Last XR Hand/Finger - Impression Only XR HAND GENERAL 3V PA/LAT/OBL BILATERAL Exam End: 01/06/2024 11:04 AM (In process) Last MRI Hand - Impression Only No resulted procedures found. Last XR Chest - Impression Only No resulted procedures found. Last XR Cervical Spine - Impression Only XR CERV OTHER 4V AP/LAT/OBL Exam End: 01/06/2024 11:04 AM (In process) Health Maintenance Current Immunizations Never Reviewed Name Date COVID-19 vaccine, monovalent (eRelyx) 12/29/2020 , 12/08/2020 Physical Exam VITAL SIGNS: BP 130/74 Pulse 85 Ht 5' 1 (1.55m) Wt 165 lb 5.5 oz (75.0kg) BMI 31.26 kg/(m^2). GENERAL APPEARANCE: Well groomed. In no distress. SKIN: No rash, thickening, nodules, calcifications, discoloration. EYES: PERRL, EOMI HENT: Normal external examination of the ears and nose, lips, oropharynx and tongue. No oropharyngeal lesions, exudate, or sores. Dry oral mucosa. NECK: No mass or asymmetry, no lymphadenopathy. RESPIRATORY: Normal respiratory effort. Clear to auscultation, no wheeze. CARDIOVASCULAR: regular, normal rate, normal heart sounds, no murmur or rub ABDOMEN: BS normal. No bruits, No tenderness, mass, or hepatosplenomegaly. NEUROLOGIC: Alert and oriented x 3. Motor exam: Normal muscle strength grossly. Normal bulk and tone. MUSCULOSKELETAL EXAMINATION: Soft tissue tender points: Diffuse tenderness along neck, bilateral upper scapula, scapular blades, arms, thighs, paraspinal areas Upper extremities: Shoulders: no tenderness to palpation. No swelling or effusion. Elbows: Full ROM in flexion and extension. No swelling or effusion. No tenderness to palpation to the joint line, olecranon, medial or lateral epicondyles. Wrists: Full ROM in all cardoso. No swelling or synovitis. tenderness to palpation Hands: Full ROM in flexion and extension. Full lacquer coater strength. No swelling or synovitis along the MCPs, PIPs, and DIPs. tenderness along the PIPs Lower extremities: Hips: tenderness to palpation along right greater trochanter Knees: Full ROM in flexion and extension. No swelling or effusion. tenderness to palpation along bilateral medial joint line. Ankles: Full ROM in all cardoso. No swelling or effusion. No tenderness to palpation along the joint line, medial/lateral malleolus, ATFL, PTFL, CFL, or Achilles Tendon. Feet: Full ROM in toe flexion/extension. No effusion. No tenderness to palpation. No evidence of MTP swelling. Diagnoses: (M25.50) Polyarthralgia (primary encounter diagnosis) (R76.8) Positive ALONDRA (antinuclear antibody) (G89.4) Chronic pain syndrome (R68.2) Dry mouth Impression and Plan 1. Polyarthralgia with positive ALONDRA ALONDRA not available, see reports widespread body pain including muscle and joint pain with fatigue, brain fog, allodynia, poor sleep. Also reports dry eyes and dry mouth which has been worsening over time No evidence of inflammatory arthritis, she has several tender spots With positive ALONDRA and worsening sicca symptoms, there is concern for Sjogren's I will repeat ALONDRA, obtain anti-DONALD, dsDNA Her pain does not seem to be related to inflammatory arthritis, she likely has underlying chronic pain syndrome/chronic fatigue syndrome To further evaluate for inflammatory arthritis will obtain RF, CCP, sed rate, CRP, CBC, CMP, UA, radiograph bilateral hands, feet, knees, lumbar spine, SI joint, cervical spine Consider referral to pain recovery clinic/fibromyalgia clinic for further management of her pain Management of dry mouth - Avoid oral irritants such as alcohol, coffee, nicotine and acidic beverages that can accelerate cavity formation -Massage the salivary glands-Place fingers on the cheeks and milk of the parotid gland in anterior direction. For sublingual glands, push tongue down on the floor of the mouth. May also try warm massage of the parotid glands. -Massage the gums. Store sigala pit or plastic button in the mouth and move it around the gingival tissues which can stimulate the saliva production. Use soft bristle toothbrush without water or toothpaste to massage gums -Biotene mouthwash has shown to help with dry mouth. For night time may try Xylimelts. - Saliva substitute eg salivart, Xerolube can be helpful - Use sugar-free, xylitol containing gum or lozenges -Try ice chips or water spray at the back of the throat rather than drinking frequent sips of water which may actually wash away the little saliva present in the mouth. - Use humidifier when heater is on - Drinking green tea once a day may help increase salivary flow, tea mug may be used as warm compress for the parotid glands. - Avoid medications that can worsen sicca symptoms - Avoid smoking - Medications e.g pilocarpine and cevimeline may help stimulate salivary flow Avoid these medications or use with careful monitoring in patients with glaucoma, asthma, patient is on beta-blockers. Possible side effects include flushing, sweating, increased secretion, GI disturbances. Management of dry eyes -Avoid ceiling fan -Limit screen time, blink often, close eyes for 20 seconds of screen time 2. Healthcare maintenance/Malignancy screening Defer to PCP Orders this visit: Office Visit on 01/06/24 XR LUMBAR GENERAL 3V AP/LAT/L5-S1 XR SACROILIAC JOINTS 2V AP PELVIS/FERGUESON XR FOOT GENERAL 3V AP/LAT/OBL BILATERAL XR HAND GENERAL 3V PA/LAT/OBL BILATERAL XR KNEE GENERAL 4V AP BOTH/PA BOTH/LAT/MERC BILATERAL XR CERV OTHER 4V AP/LAT/OBL ALONDRA BY IFA SCREEN ANTI DONALD ID DNA AB DS + CONF BLD C3 COMPLEMENT C4 COMPLEMENT COMPLETE BLOOD COUNT AND DIFFERENTIAL CREATINE KINASE/CK COMPREHENSIVE METABOLIC PANEL C-REACTIVE PROTEIN SEDIMENTATION RATE, WESTERGREN VITAMIN D 25 HYDROXY URINALYSIS, WITH MICROSCOPIC CCP ANTIBODY IGG RHEUMATOID FACTOR PROTEIN ELECTROPHORESIS SERUM W/INTERP cetirizine (ZYRTEC) 10 mg tablet Phentermine HCl 37.5 mg capsule traZODone (DESYREL) 50 mg tablet Return in about 9 days (around 01/15/2024) for virtual. I spent a total of 60 minutes on the date of the service which included preparing to see the patient, [id number] patient care, completing clinical documentation, obtaining and/or reviewing separately obtained history, performing a medically appropriate examination, counseling and educating the patient/family/caregiver, and ordering medications, tests, or procedures. This note was partially generated with the assistance of [employer] voice recognition software. An attempt was made to correct any dictation errors however there may be some incorrect words, spellings, and punctuation. ___ Tim Plaza MD, [facility] Rheumatology documented in this encounter [facility] 10-14-2023 Miscellaneous Notes Fit for work letter was typed out and faxed over to [facility]. Talked to patient and she said that is what they needed. Marilynn Romero MA Called again about letter Called and left a voicemail for her to let us know if she needs just a letter from office fit for duty or if there is a form that [employer] has that needs to be filled out then it needs to be faxed over. Marilynn Romero MA Patient called again, requesting a letter stating that she is fit for duty for her job to be faxed. Attn: [employer]. Fax number [phone]. Any questions please call patient at [phone], she can't go back to work until they receive something. Thank you! documented in this encounter [facility] 10-05-2023 Miscellaneous Notes There was not return to work fitness form in the packet. I faxed over the forms to [employer] on 09/30/23. I left a vm on patients phone to let her know and that I can't upload them to her [employer] because she does not have one set up. Marilynn Romero MA Patient called needing a return to work fitness form. Any questions she can be reached at [phone] The form should be sent to The [employer], . Please also my chart her a copy. Thank You! documented in this encounter [facility] 09-30-2023 Miscellaneous Notes Employer Forms for Patient/Caregiver Time Off of Work Completed, signed by provider, and returned to below contact. Completed copy scanned in [facility] Date of Surgery: 09/16/23 Estimated RTW date: 10/19/23 Employer: [employer]. Faxed to the [facility] Date sent to employer: 09/30/23 Received fax confirmation: YES Received FMLA/STD paperwork on 09/23/23 Pending physician signature and completion. Surgeon: Dr. Hart Date of Surgery (if known): 09/16/23 documented in this encounter [facility] 09-30-2023 Note HNO ID: [id number] Author: MEREDITH BLANCO APRN.ALVIN Service: ? Author [...] with no restrictions. Paperwork completed Follow up: PRAnna Blanco APRN.TRANSFER ENGINEER [facility] 09-30-2023 History of Present illness Narrative Assessment [...] Paperwork completed Follow up: LISA Blanco APRN.ALVIN documented in this encounter [facility] 09-30-2023 Nurse Note What is the reason for your visit today? Post op follow up Lap cholecystectomy 09/16/23 Who is your referring physician? Dr Hutchins Are you having poor oral intake? NO Have you had unintentional weight loss of 15 lbs/7 Kg in the last 3-6 months? NO Bowels: regular Wound: clean & dry Temperature: No Drains: No documented in this encounter [facility] 09-16-2023 Note HNO ID: [id number] Author: JORDY DASILVA DO Service: Anesthesiology Author Type: Resident Type: Anesthesia Procedure Notes Filed: 09/16/2023 08:08 Note Text: Attestation signed by Jordy Dasilva DO at 09/16/2023 8:08 AM I saw and evaluated the patient. Discussed with the ACCOUNTANT SYSTEMS/AA/resident and agree with findings and plan as [...] September 16, 2023 TIME: 8:04 AM CSN: [id number] [facility] [place] 09-16-2023 Note HNO ID: [id number] Author: JORDY DASILVA DO Service: Anesthesiology Author Type: Resident Type: Anesthesia Procedure Notes Filed: 09/16/2023 08:08 Note Text: Attestation signed by Jordy Dasilva DO at 09/16/2023 8:08 AM I saw and evaluated the patient. Discussed with the ACCOUNTANT SYSTEMS/AA/resident and agree with findings and plan as documented in the note. 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 and patient sedated or unresponsive [...] September 16, 2023 TIME: 8:02 AM CSN: [id number] [facility] [place] 09-09-2023 History of Past i llness Narrative Problem Noted Date Diagnosed Date Resolved Date MARKY (obstructive sleep apnea) 09/09/2023 09/10/2023 documented as of this encounter (statuses as of 10/01/2023) [facility]01-17-2024 History of Past illness Narrative* Problem Noted Date Diagnosed Date Resolved Date MARKY (obstructive sleep apnea) 09/09/2023 09/10/2023 documented as of this encounter (statuses as of 10/01/2023) [facility]01-17-2024 History of Past illness Narrative* Problem Noted Date Diagnosed Date Resolved Date MARKY (obstructive sleep apnea) 09/09/2023 09/10/2023 documented as of this encounter (statuses as of 10/06/2023) [facility]01-17-2024 History of Past illness Narrative* Problem Noted Date Diagnosed Date Resolved Date MARKY (obstructive sleep apnea) 09/09/2023 09/10/2023 documented as of this encounter (statuses as of 10/14/2023) [facility]01-12-2024 NoteHNO ID: [id number] Author: UTE HART MD Service: ? Author Type: Physician Type: Progress Notes Filed: 09/04/2023 13:38 Note Text: Assessment NEW LIVER CONSULT PATIENT NAME: Stacie Davidson REASON FOR CONSULT: Right upper quadrant pain REQUESTING PHYSICIAN: Dr. Roxann Hutchins DATE of SERVICE: 09/03/2023 TIME of SERVICE: 8:47 AM PCP: No primary care provider on file. 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 Hutchins for right upper quadrant abdominal pain. Patient had a significant attack of acute right upper quadrant discomfort around giving. She subsequently underwent imaging that noted cholelithiasis. She was also noted to have a hemangioma. Subsequent CT liver noted a hemangioma in segment 4B/5, with the gallbladder on the hemangioma. She was seen by Dr. Hutchins and was subsequently referred to me for [...] is quite healthy. She works at the [employer], no heavy lifting involved. She does not [...] on file., referred to me by Dr. Hutchins for right upper quadrant abdominal pain. Patient had a significant attack of acute right upper quadrant discomfort around Thanksgiving. She subsequently underwent imaging that noted cholelithiasis. She was also noted to have a hemangioma. Subsequent CT liver noted a hemangioma in segment 4B/5, with the gallbladder on the hemangioma. She was seen by Dr. Hutchins and was subsequently referred to me for [...] is quite healthy. She works at the [employer], no heavy lifting involved. She does not [...] Schedule for cholecystectomy Risk (more content not included)...[facility]12-29-2023 NoteHNO ID: [id number] Author: Alem Hernandez RT(R) Service: ? Author [...] BY: RT Kwabena(R) August 21, 2023 9:[address] [facility]12-29-2023 NoteHNO ID: [id number] Author: Val Hutchins RN Service: ? Author Type: Registered Nurse [...] SITE APPEARANCE: Clean,Dry and Intact SIGNATURE: Val Hutchins RN PATIENT NAME: Stacie Davidson DATE: August 21, 2023 TIME: 9:[address] [facility]12-12-2023 Miscellaneous Notes* Telephone Encounter - Emerald Melendez RN - 08/04/2023 11:35 AM EST Call to patient to discuss need for further imaging prior to consult visit. Dr. Hart is recommending CT liver Patient reports having a CT last year and dye caused her a 3 day migraine Denies rash, hives, or shortness of breathe. Patient agreeable to repeat CT w IVCON. Will order pre medication to aid in preventing side effects Provided patient with [facility] appt number to schedule CT Pre medication will be sent to patient pharmacy. Patient to call our office after CT Liver is scheduled to schedule new consult with Dr. Hart. * Telephone Encounter - Emerald Melendez RN - 07/30/2023 1:18 PM EST Images from the original note were not included. [facility] Referral Referred by Dr. Cuong Arevalo dx: RUQ pain, enlarging hemangioma, cholelithiasis US RUQ 07/18/2013 * Telephone Encounter - Milagro Ag - 07/27/2023 10:44 AM EST Referral received and scanned into [employer]. Reason for referral hepatic hemangioma, RUQ pain and cholelithiasis [facility] NoteChief Complaint consultation for RUQ pain HPI Staff 53 year old female presents on consultation from [facility] for complaint of RUQ pain. [place] [...] asthma, gastric ulcers, depression, fibromyalgia, referred from [facility] for abd pain and cholelithiasis; patient [...] will send records; call with problems/questions. Ordered: [facility] External Ambulatory Referral 2. Right upper quadrant abdominal pain (R10.11: Right upper quadrant pain) see # 1 Ordered: [facility] External Ambulatory Referral 3. Cholelithiasis (K80.20: Calculus of gallbladder without cholecystitis without obstruction) see # 1 Ordered: [facility] External Ambulatory Referral 4. BMI 31.0-31.9,adult (Z68.31: Body mass index [BMI] 31.0-31.9, adult) recommend low fat diet and exercise Follow-up No qualifying data available Problem List/Past Medical History Ongoing Asthma BMI 31.0-31.9,adult Cholelithiasis Depression Fibromyalgia Hepatic hemangioma History of gastric ulcer Obesity Right upper quadrant abdominal pain Hi (more content not included)...[facility] Comment: Electronically Signed By: CUONG ARGUETA, Roxann Colunga\Date and Time Signed: 07/23/23 17:10 [id number] Evaluation note* Encounter Date Diagnosis Assessment Notes [...] understanding and is agreeable to treatment plan. [facility] Other 10-08-2023 Evaluation note* Encounter Date Diagnosis [...] fever. Patient verbalized understanding of treatment plan. [facility] Other Evaluation + Plan [facility] General Surgery [place] Evaluation noteNo InformationNort Hyphen 8 Other Evaluation noteNo assessment information available [facility] Work Phone: Evaluation note* Diagnosis Calculus of gallbladder without cholecystitis without obstruction- Primary Calculus of gallbladder without mention of cholecystitis or obstruction Liver mass Unspecified disorder of liver [facility] Diagnosis S/P gastrointestinal surgery, follow-up exam- Primary Follow-up examination, following other surgery S/P laparoscopic cholecystectomy Other postprocedural status [facility] Diagnosis Onset Date Resolution Status Anemia due to blood loss acu te Antral ulcer acute Asthma acute Family history of Yvonne thyroiditis acute Family history of rheumatoid arthritis acute Fatigue acute Fibromyalgia acute GERD (gastroesophageal reflux disease) acute Hemangioma acute Multiple joint complaints ac knik Screening for lipid disorders acute [facility] Work Phone: Evaluation note* Diagnosis Onset Date Resolution Status Anemia due to blood loss acu te Antral ulcer acute Asthma acute Family history of diabetes mellitus acute Family history of Yvonne thyroiditis acute Family history of rheumatoid arthritis acute Fatigue acute Fibromyalgia acute GERD (gastroesophageal reflux disease) acute Hemangioma acute Multiple joint complaints ac knik Obesity (BMI 30.0-34.9) acut e Screening for colon cancer a cute Screening for lipid disorders acute Family history of diabetes mellitus acute Obesity (BMI 30.0-34.9) acut e [facility] Work Phone: Evaluation note* Diagnosis Polyarthralgia- Primary Pain in joint, multiple sites Positive ALONDRA (antinuclear antibody) Other and unspecified nonspecific immunological findings Chronic pain syndrome Dry mouth Disturbance of salivary secretion Polyarthralgia Pain in joint, multiple sites [facility] Diagnosis Polyarthralgia Pain in joint, multiple sites documented in this encounter [facility]* Diagnosis Ds DNA antibody positive- Primary Other and unspecified nonspecific immunological findings Polyarthralgia Pain in joint, multiple sites Positive ALONDRA (antinuclear antibody) Other and unspecified nonspecific immunological findings Chronic pain syndrome documented in this [facility] Diagnosis Onset Date Resolution Status Family history of diabetes mellitus acute Obesity (BMI 30.0-34.9) acut e Anxiety acute Family history of diabetes mellitus acute Obesity (BMI 30.0-34.9) acut e Sleep disturbance acute Anxiety acute Family history of diabetes mellitus acute Obesity (BMI 30.0-34.9) acut e Sleep disturbance acute [facility] Work Phone: Evaluation note* Diagnosis Onset Date Resolution Status Family history of diabetes mellitus acute Obesity (BMI 30.0-34.9) acut e Anxiety acute Family history of diabetes mellitus acute Obesity (BMI 30.0-34.9) acut e Sleep disturbance acute Anxiety acute Family history of diabetes mellitus acute Obesity (BMI 30.0-34.9) acut e Sleep disturbance acute Seasonal allergies acute [facility] Work Phone: Evaluation note* Diagnosis Onset Date Resolution Status Anxiety acute Family history of diabetes mellitus acute Obesity (BMI 30.0-34.9) acut e Sleep disturbance acute Anxiety acute Family history of diabetes mellitus acute Obesity (BMI 30.0-34.9) acut e Sleep disturbance acute Seasonal allergies acute Screening for colon cancer a cute UTI (urinary tract infection) acute [facility] Work Phone: Evaluation note* Diagnosis Onset Date Resolution Status Anxiety acute Family history of diabetes mellitus acute Obesity (BMI 30.0-34.9) acut e Sleep disturbance acute Anxiety acute Family history of diabetes mellitus acute Obesity (BMI 30.0-34.9) acut e Sleep disturbance acute Seasonal allergies acute Family history of diabetes mellitus acute Obesity (BMI 30.0-34.9) acut e UTI (urinary tract infection) acute [facility] Work Phone: History general Narrative - Reported* Type Description Date Medical History asthma Medical History acid reflux Medical History anxiety Medical History depression Surgical History No Surgical history information Hospitalization History [facility] 2 Hospitalization History blood transfusions and b leeding ulcers [employer] [facility] Other [place] general Narrative - Reported* Type Description Date Medical History asthma Medical History acid reflux Medical History anxiety Medical History depression Surgical History No know Surgical history Hospitalization History [facility] X 2 Hospitalization History blood transfusions and b leeding ulcers [employer] [facility] [employer] Other Hospital course Narrative No data available for this section [facility] [place] Discharge instructions No data available for this section [facility] [place] Progress note No data available for this section [facility] [place] Reason for referral (narrative) Referred by: CUONG ARGUETA, Roxann Pride [facility] [place] Resjmd for referral (narrative)* Diagnostic Procedure Only (Routine) - Closed Specialty Diagnoses / Procedures Referred By Julianne quezada Referred To Contact XR IMAGING Diagnoses Polyarthralgia Procedures XR CERV OTHER 4V AP/LAT/OBL RADEX SPINE CERVICAL 4 OR 5 VIEWS Tim Plaza MD [address] [place] [address] [place] [address] Referral ID Status Reason Start Date Expiration Date V isits Requested Visits Authorized [id number] Closed Auto-Generate d Referral 01/06/2024 02/04/2025 1 1 * Diagnostic Procedure Only (Routine) - Closed Specialty Diagnoses / Procedures Referred By Contac t Referred To Contact XR IMAGING Diagnoses Polyarthralgia Procedures XR KNEE GENERAL 4V AP BOTH/PA BOTH/LAT/MERC BILATERAL RADIOLOGIC EXAM KNEE COMPLETE 4/MORE VIEWS Tim Plaza MD [address] [phone] [place] [address] Referral ID Status Reason Start Date Expiration Date V isits Requested Visits Authorized [id number] Closed Auto-Generate d Referral 01/06/2024 02/04/2025 1 1 * Diagnostic Procedure Only (Routine) - Closed Specialty Diagnoses / Procedures Referred By Contac t Referred To Contact XR IMAGING Diagnoses Polyarthralgia Procedures XR HAND GENERAL 3V PA/LAT/OBL BILATERAL RADEX HAND MINIMUM 3 VIEWS Tim Plaza MD [address] [phone] Xr Imaging [facility] Referral ID Status Reason Start Date Expiration Date V isits Requested Visits Authorized [id number] Closed Auto-Generate d Referral 01/06/2024 02/04/2025 1 1 * Diagnostic Procedure Only (Routine) - Closed Specialty Diagnoses / Procedures Referred By Contac t Referred To Contact XR IMAGING Diagnoses Polyarthralgia Procedures XR FOOT GENERAL 3V AP/LAT/OBL BILATERAL RADEX FOOT COMPLETE MINIMUM 3 VIEWS Tim Plaza MD [address] [phone] [place] [address] Referral ID Status Reason Start Date Expiration Date V isits Requested Visits Authorized [id number] Closed Auto-Generate d Referral 01/06/2024 02/04/2025 1 1 * Diagnostic Procedure Only (Routine) - Closed Specialty Diagnoses / Procedures Referred By Contac t Referred To Contact XR IMAGING Diagnoses Polyarthralgia Procedures XR SACROILIAC JOINTS 2V AP PELVIS/FERGUESON RADIOLOGIC EXAMINATION SACROILIAC JNTS <3 VIEWS Tim Plaza MD [address] [phone] [place] [address] Referral ID Status Reason Start Date Expiration Date V isits Requested Visits Authorized [id number] Closed Auto-Generate d Referral 01/06/2024 02/04/2025 1 1 * Diagnostic Procedure Only (Routine) - Closed Specialty Diagnoses / Procedures Referred By Contac t Referred To Contact XR IMAGING Diagnoses Polyarthralgia Procedures XR LUMBAR GENERAL 3V AP/LAT/L5-S1 RADEX SPINE LUMBOSACRAL 2/3 VIEWS Tim Plaza MD [address] [phone] [place] [address] Referral ID Status Reason Start Date Expiration Date V isits Requested Visits Authorized [id number] Closed Auto-Generate d Referral 01/06/2024 02/04/2025 1 1 [facility] for referral (narrative)* Diagnostic Procedure Only (Routine) - Closed Specialty Diagnoses / Procedures Referred By Contac t Referred To Contact XR IMAGING Diagnoses Polyarthralgia Procedures XR CERV OTHER 4V AP/LAT/OBL RADEX SPINE CERVICAL 4 OR 5 VIEWS Tim Plaza MD [address] [phone] [place] [address] Referral ID Status Reason Start Date Expiration Date V isits Requested Visits Authorized [id number] Closed Auto-Generate d Referral 01/06/2024 02/04/2025 1 1 * Diagnostic Procedure Only (Routine) - Closed Specialty Diagnoses / Procedures Referred By Contac t Referred To Contact XR IMAGING Diagnoses Polyarthralgia Procedures XR KNEE GENERAL 4V AP BOTH/PA BOTH/LAT/MERC BILATERAL RADIOLOGIC EXAM KNEE COMPLETE 4/MORE VIEWS Tim Plaza MD [address] [place] [address] X[facility] [place] [address] Referral ID Status Reason Start Date Expiration Date V isits Requested Visits Authorized [id number] Closed Auto-Generate d Referral 01/06/2024 02/04/2025 1 1 * Diagnostic Procedure Only (Routine) - Closed Specialty Diagnoses / Procedures Referred By Julianne t Referred To Contact XR IMAGING Diagnoses Polyarthralgia Procedures XR HAND GENERAL 3V PA/LAT/OBL BILATERAL RADEX HAND MINIMUM 3 VIEWS Tim Plaza MD [address] [place] [address] Xr Imaging [facility] Referral ID Status Reason Start Date Expiration Date V isits Requested Visits Authorized [id number] Closed Auto-Generate d Referral 01/06/2024 02/04/2025 1 1 * Diagnostic Procedure Only (Routine) - Closed Specialty Diagnoses / Procedures Referred By Nehaac t Referred To Contact XR IMAGING Diagnoses Polyarthralgia Procedures XR FOOT GENERAL 3V AP/LAT/OBL BILATERAL RADEX FOOT COMPLETE MINIMUM 3 VIEWS Tim Plaza MD [address] [phone] [place] [address] Referral ID Status Reason Start Date Expiration Date V isits Requested Visits Authorized [id number] Closed Auto-Generate d Referral 01/06/2024 02/04/2025 1 1 * Diagnostic Procedure Only (Routine) - Closed Specialty Diagnoses / Procedures Referred By Contac t Referred To Contact XR IMAGING Diagnoses Polyarthralgia Procedures XR SACROILIAC JOINTS 2V AP PELVIS/FERGUESON RADIOLOGIC EXAMINATION SACROILIAC JNTS <3 VIEWS Tim Plaza MD [address] [phone] [place] [address] Referral ID Status Reason Start Date Expiration Date V isits Requested Visits Authorized [id number] Closed Auto-Generate d Referral 01/06/2024 02/04/2025 1 1 * Diagnostic Procedure Only (Routine) - Closed Specialty Diagnoses / Procedures Referred By Contac t Referred To Contact XR IMAGING Diagnoses Polyarthralgia Procedures XR LUMBAR GENERAL 3V AP/LAT/L5-S1 RADEX SPINE LUMBOSACRAL 2/3 VIEWS Tim Plaza MD [address] [place] [address] Xr Imaging [facility] Referral ID Status Reason Start Date Expiration Date V isits Requested Visits Authorized [id number] Closed Auto-Generate d Referral 01/06/2024 02/04/2025 1 1 [facility] for visit Narrative* Diagnostic Procedure Only (Routine) - Closed Specialty Diagnoses / Procedures Referred By Contac t Referred To Contact XR IMAGING Diagnoses Polyarthralgia Procedures XR CERV OTHER 4V AP/LAT/OBL RADEX SPINE CERVICAL 4 OR 5 VIEWS Tim Plaza MD [address] [phone] [place] [address] Referral ID Status Reason Start Date Expiration Date V isits Requested Visits Authorized [id number] Closed Auto-Generate d Referral 01/06/2024 02/04/2025 1 1 [facility] Summary Purpose Family History Relationship Condition Age [...] Unknown sister Malignant neoplasm of breast Unknown Relationship Condition Age at Onset Recorded Date/T dorcas Not Specified Coronary artery disease Unknown Bruises easily Unknown father Family history of other condition Unknown Diabetes mellitus Unknown Malignant neoplasm Unknown grandparent Unknown mother Hypertension Unknown Family history of mental disorder Unknown sister Malignant neoplasm of breast Unknown Advance Directives Advance Directive Response Recorded Date/ Time Advance Directives No December 10 10:10am Advance Directive Response Recorded Date/ Time Advance Directives No December 10 11:10am Reason for Referral Specialty Diagnoses / Procedures Referred By Contac t Referred To Contact CT IMAGING Diagnoses Calculus of gallbladder without cholecystitis without obstruction Liver mass Procedures CT LIVER W IVCON CT ABDOMEN W/CONTRAST 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, COUNTY ENGINEER.TRANSFER ENGINEER [address] [place] [address] Ct Imaging [facility] Referral ID Status Reason Start Date Expiration Date Visits Requested Visits Authorized [id number] Authorized Auto-Generat ed Referral 3 08/23/2023 1 1 Chief Complaint and Reason for Visit Chief Complaint Establish Reason for Visit Anemia due to blood loss Antral ulcer Asthma Family history of Yvonne thyroiditis Family history of rheumatoid arthritis Fatigue Fibromyalgia GERD (gastroesophageal reflux disease) Hemangioma Multiple joint complaints Screening for lipid disorders Chief Complaint Establish 4 week follow up Reason for Visit Anemia due to blood loss Antral ulcer Asthma Family history of diabetes mellitus Family history of Yvonne thyroiditis Family history of rheumatoid arthritis Fatigue Fibromyalgia GERD (gastroesophageal reflux disease) Hemangioma Multiple joint complaints Obesity (BMI 30.0-34.9) Screening for colon cancer Screening for lipid disorders Family history of diabetes mellitus Obesity (BMI 30.0-34.9) Chief Complaint Establish 4 week follow up 4 week follow up Reason for Visit Anemia due to blood loss Antral ulcer Asthma Family history of diabetes mellitus Family history of Yvonne thyroiditis Family history of rheumatoid arthritis Fatigue Fibromyalgia GERD (gastroesophageal reflux disease) Hemangioma Multiple joint complaints Obesity (BMI 30.0-34.9) Screening for colon cancer Screening for lipid disorders Family history of diabetes mellitus Obesity (BMI 30.0-34.9) Chief Complaint 4 week follow up 4 week follow up Amb Documentation 4 week check up Reason for Visit Family history of di abetes mellitus Obesity (BMI 30.0-34.9) Anxiety Family history of diabetes mellitus Obesity (BMI 30.0-34.9) Sleep disturbance Anxiety Family history of diabetes mellitus Obesity (BMI 30.0-34.9) Sleep disturbance Chief Complaint 4 week follow up 4 week follow up Amb Documentation 4 week check up allergies Reason for Visit Family history of di abetes mellitus Obesity (BMI 30.0-34.9) Anxiety Family history of diabetes mellitus Obesity (BMI 30.0-34.9) Sleep disturbance Anxiety Family history of diabetes mellitus Obesity (BMI 30.0-34.9) Sleep disturbance Seasonal allergies Chief Complaint 4 week follow up Amb Documentation 4 week check up allergies weight loss medication discussion Reason for Visit Anxiety Family history of diabetes mellitus Obesity (BMI 30.0-34.9) Sleep disturbance Anxiety Family history of diabetes mellitus Obesity (BMI 30.0-34.9) Sleep disturbance Seasonal allergies Screening for colon cancer UTI (urinary tract infection) Chief Complaint 4 week follow up Amb Documentation 4 week check up allergies weight loss medication discussion R10.9 Reason for Visit Anxiety Family history of diabetes mellitus Obesity (BMI 30.0-34.9) Sleep disturbance Anxiety Family history of diabetes mellitus Obesity (BMI 30.0-34.9) Sleep disturbance Seasonal allergies Family history of diabetes mellitus Obesity (BMI 30.0-34.9) UTI (urinary tract infection) Additional Source Comments INFORMATION SOURCE (unrecogn ized section and content) DATE CREATED AUTHOR 10/11/2022 [facility] DATE CREATED AUTHOR AUTHOR'S ORGANIZ ATION 09/20/2023 [facility] DATE CREATED AUTHOR AUTHOR'S ORGANIZ ATION 09/29/2023 [facility] DATE CREATED AUTHOR AUTHOR'S ORGANIZ ATION 10/08/2023 [facility] DATE CREATED AUTHOR AUTHOR'S ORGANIZ ATION 01/17/2024 [facility] REASON FOR VISIT (unrecogniz ed section and content) Reason Comments Consult Reason Comments Post Op Follow Up Lap cholecystectomy 09/16/23 Reason Comments FMLA Paperwork Reason Comments return to work fitness form Reason Comments Fit for duty letter Reason Comments Consult Pos alondra test. Pain X few of yrs of ongo ing generalized pain. Eye Problem Bi-lateral dry eyes. Reason Comments Radiology XR Reason Comments Follow Up Care Teams (unrecognized sec tion and content) Team Status: Active Member Role Status Dates Nadege Aly DNP Primary Care Provider Active Team Status: Inactive Member Role Status Dates Nadege Aly DNP Primary Care Provider Active Dayanara Thompson APRN Attending Provider Active Television Receiver Analyzer Relationship Specialty Start Date End Date [facility] TRANSFER ENGINEER [address] [place] [address] PCP - General Family Medicine 09/09/23 Television Receiver Analyzer Relationship Specialty Start Date End Date [facility] TRANSFER ENGINEER [address] [place] [address] PCP - General Family Medicine 09/09/23 Television Receiver Analyzer Relationship Specialty Start Date End Date [facility] CNP [address] [place] [address] PCP - General Family Medicine 09/09/23 Team Status: Active Member Role Status Dates Nadege Lawson APRN ADMIN ASST-C Primary Care Provider Active Team Status: Inactive Member Role Status Dates Nadege Lawson APRN ADMIN ASST-C Primary Care Provider, Attending Provider Active Start: October 13, 2023 End: October 13, 2023 Team Status: Active Member Role Status Dates Nadege Lawson APRN ADMIN ASST-C Primary Care Provider, Attending Provider Active Start: October 16, 2023 Team Status: Inactive Member Role Status Dates Nadege Lawson APRN ADMIN ASST-C Primary Care Provider, Attending Provider Active Start: November 10, 2023 End: November 10, 2023 Team Status: Inactive Member Role Status Dates Nadege Lawson APRN ADMIN ASST-C Primary Care Provider, Attending Provider Active Start: December 15, 2023 End: December 15, 2023 Television Receiver Analyzer Relationship Specialty Start Date End Date Nadege Lawson NP [address] [place] [address] PCP - General Nurse Practitioner 01/06/24 Nadege Lawson NP [address] [place] [address] Referring Nurse Practitioner 10/22/23 Television Receiver Analyzer Relationship Specialty Start Date End Date Nadege Lawson NP [address] [facility] [place] [address] PCP - General Nurse Practitioner 01/06/24 Nadege Lawson NP [address] [place] [address] Referring Nurse Practitioner 10/22/23 Television Receiver Analyzer Relationship Specialty Start Date End Date Nadege Lawson NP [address] [facility] [place] [address] PCP - General Nurse Practitioner 01/06/24 Nadege Lawson NP [address] [place] [address] Referring Nurse Practitioner 10/22/23 Television Receiver Analyzer Relationship Specialty Start Date End Date Nadege Lawson NP [address] [facility] [place] [address] PCP - General Nurse Practitioner 01/06/24 Nadege Lawson NP [address] [place] [address] Referring Nurse Practitioner 10/22/23 Team Status: Active Member Role Status Dates Nadege Lawson APRN ADMIN ASST-C Primary Care Provider Active Start: December 23, 2023 Nadege Fregoso LPN Attending Provider Active Start: December 23, 2023 Team Status: Active Member Role Status Dates Nadege Lawson APRN ADMIN ASST-C Primary Care Provider, Attending Provider Active Start: January 06, 2024 Team Status: Inactive Member Role Status Dates Nadege Lawson APRN ADMIN ASST-C Primary Care Provider, Attending Provider Active Start: January 12, 2024 End: January 12, 2024 Team Status: Inactive Member Role Status Dates Nadege LAUREN Lawson ADMIN ASST-C Primary Care Provider, Attending Provider Active Start: January 27, 2024 End: January 27, 2024 Team Status: Inactive Member Role Status Dates Nadege LAUREN Lawson ADMIN ASST-C Primary Care Provider, Attending Provider Active Start: March 07, 2024 End: March 07, 2024 Goals (unrecognized section and content) Goals may be documented in a n alternate section Source Comments (unrecognize d section and content) In the event this informatio n is protected by the Federal Confidentiality of Alcohol and Drug Abuse Patient Records regulations: The Federal rules restrict any use of the information to criminally investigate or prosecute any alcohol or drug abuse patient.[facility] the event this information is protected by the Federal Confidentiality of Alcohol and Drug Abuse Patient Records regulations: The Federal rules restrict any use of the information to criminally investigate or prosecute any alcohol or drug abuse patient.[facility] the event this information is protected by the Federal Confidentiality of Alcohol and Drug Abuse Patient Records regulations: The Federal rules restrict any use of the information to criminally investigate or prosecute any alcohol or drug abuse patient.[facility] the event this information is protected by the Federal Confidentiality of Alcohol and Drug Abuse Patient Records regulations: The Federal rules restrict any use of the information to criminally investigate or prosecute any alcohol or drug abuse patient.[facility] the event this information is protected by the Federal Confidentiality of Alcohol and Drug Abuse Patient Records regulations: The Federal rules restrict any use of the information to criminally investigate or prosecute any alcohol or drug abuse patient.[facility] the event this information is protected by the Federal Confidentiality of Alcohol and Drug Abuse Patient Records regulations: The Federal rules restrict any use of the information to criminally investigate or prosecute any alcohol or drug abuse patient.[facility] the event this information is protected by the Federal Confidentiality of Alcohol and Drug Abuse Patient Records regulations: The Federal rules restrict any use of the information to criminally investigate or prosecute any alcohol or drug abuse patient.[facility] Center[facility] the event this information is protected by the Federal Confidentiality of Alcohol and Drug Abuse Patient Records regulations: The Federal rules restrict any use of the information to criminally investigate or prosecute any alcohol or drug abuse patient.[facility] Center[facility] the event this information is protected by the Federal Confidentiality of Alcohol and Drug Abuse Patient Records regulations: The Federal rules restrict any use of the information to criminally investigate or prosecute any alcohol or drug abuse patient.[facility] FOR RECORDS PERTAINING TO PATIENTS WHO ARE [...] BE BASED ON THE PRIMARY CLINICAL RECORDS. [facility]. provides no warranty or guarantee of the accuracy or completeness of information in this document.
== END 2024-03-11 10:13 | disposition home or self-care (01) ==
LOC: US 10:12
PROVIDERS: PCP Nurse Practitioner Family; Visit Provider Nurse Practitioner Family
DX: R10.9 Unspecified abdominal pain (principal)
CPT/HCPCS: 76770

== ENCOUNTER 2024-06-24 08:56 | Outpatient (OUT) | payer BC, SELFPAY ==
--- NOTE | 2024-06-24 09:04 | US_ITS ---
The [address] [address] Patient Name: DEANGELO DAVDISON MRN: [id number] date: 1970 Sex: F Assigned Patient Location: [place] Current Patient Location: [place] Accession/Order Number: [id number] Exam Date: 06/24/2024 09:06 Report Date: 06/24/2024 13:39 At the request of: JOANN IRVIN Procedure: US right upper quadrant EXAM: US right upper quadrant HISTORY: Hemangioma Of Liver COMPARISON: 07/18/2023 TECHNIQUE: Grayscale, color and Doppler FINDINGS: The liver is normal in size, contour and overall echotexture. Two hyperechogenic lesions in the liver the largest measuring 5.1 x 3.1 x 3.5 cm. Hepatopedal flow in the main portal vein with a velocity of 22 cm/s. The visualized pancreas is normal The gallbladder is absent. Negative sonographic Garcia sign. Common bile duct measures 4.6 mm The right kidney is normal measuring 9.8 x 5.1 x 4.2 cm US/US right upper quadrant IMPRESSION: 2 hyperechogenic lesions in the right hepatic lobe measuring up to 5.1 cm, these are previously thought to be hemangiomas Electronically authenticated by: DEWEY DEWEY Date: 06/24/2024 13:39
== END 2024-06-24 08:57 | disposition home or self-care (01) ==
LOC: US 08:57
PROVIDERS: PCP Nurse Practitioner Family; Visit Provider Nurse Practitioner Family
DX: D18.03 Hemangioma of intra-abdominal structures (principal)
CPT/HCPCS: 76705

== ENCOUNTER 2024-08-22 16:03 | Outpatient (OUT) | payer BC, SELFPAY ==
--- NOTE | 2024-08-22 16:06 | XR_ITS ---
The [address] [address] Patient Name: DEANGELO DAVIDSON MRN: [id number] date: 1970 Sex: F Assigned Patient Location: [facility] Current Patient Location: Accession/Order Number: [id number] Exam Date: 08/22/2024 16:21 Report Date: 08/23/2024 07:41 At the request of: JOANN IRVIN Procedure: XR chest 2V EXAMINATION: XR chest 2V HISTORY: Cough COMPARISON: 06/06/2021 TECHNIQUE: PA and lateral FINDINGS: LUNGS: No significant pulmonary parenchymal abnormalities. VASCULATURE: No increased pulmonary vasculature. PLEURA: No pneumothorax, effusion, or pleural thickening. CARDIAC: No cardiomegaly or cardiac silhouette abnormality. MEDIASTINUM: No visible mass or adenopathy. BONES: No fracture or visible bone lesion. OTHER: Negative. XR/XR chest 2V IMPRESSION: No acute cardiopulmonary process Electronically authenticated by: DEWEY DEWEY Date: 08/23/2024 07:41
== END 2024-08-22 16:04 | disposition home or self-care (01) ==
LOC: RAD 16:03
PROVIDERS: PCP Nurse Practitioner Family; Visit Provider Nurse Practitioner Family
DX: R05.9 Cough, unspecified (principal)
CPT/HCPCS: 71046

== ENCOUNTER 2024-10-06 14:45 | Outpatient (OUT) | payer BC, SELFPAY ==
--- NOTE | 2024-10-06 14:49 | MR_ITS ---
The [address] [address] Patient Name: DEANGELO DAVIDSON MRN: [id number] date: 1970 Sex: F Assigned Patient Location: MRI Current Patient Location: MRI Accession/Order Number: [id number] Exam Date: 10/06/2024 15:00 Report Date: 10/08/2024 09:02 At the request of: JOANN IRVIN Procedure: MR lower leg RT wo/w con MRI right tibia/fibula 10/06/2024. HISTORY: Pain and swelling of the lower right leg. COMPARISON: Radiographs right tibia/fibula 06/06/2021. TECHNIQUE: Multiplanar, multisequence MRI images of the right tibia/fibula were obtained prior to and following the intravenous administration of gadolinium. FINDINGS: The bone marrow signal intensity appears age appropriate. No bone marrow edema-like signal or abnormal enhancement of the bone marrow is seen. No muscle edema or muscle atrophy is seen. Markers were placed on the surface of the patient's skin along the anteromedial aspect of the proximal third of the tibia in the region of clinical symptomatology. No significant soft tissue swelling, encapsulated lipoma or enhancing soft tissue mass is seen in this region. No enhancing soft tissue mass is seen elsewhere in the lower leg. There is no Parker cyst. There is prominent subcutaneous fat of the lower leg. MR/MR lower leg RT wo/w con IMPRESSION: 1. No encapsulated lipoma or enhancing soft tissue mass of the lower right leg is seen. There is prominent subcutaneous fat of the lower leg. Please note that MRI cannot differentiate an unencapsulated lipoma from adjacent subcutaneous fat. 2. No osseous abnormality is seen. Electronically authenticated by: WARREN LAL Date: 10/08/2024 09:02
== END 2024-10-06 14:46 | disposition home or self-care (01) ==
LOC: MRI 14:45
PROVIDERS: PCP Nurse Practitioner Family; Visit Provider Nurse Practitioner Family
DX: M79.604 Pain in right leg (principal); R22.41 Localized swelling, mass and lump, right lower limb
CPT/HCPCS: 73720; A9575

== ENCOUNTER 2024-10-15 12:50 | Outpatient (OUT) | payer BC, SELFPAY ==
--- NOTE | 2024-10-15 | US_ITS ---
The [address] [address] Patient Name: DEANGELO DAVIDSON MRN: [id number] date: 1970 Sex: F Assigned Patient Location: US Current Patient Location: Accession/Order Number: [id number] Exam Date: 10/15/2024 13:51 Report Date: 10/15/2024 13:54 At the request of: JOANN IRVIN Procedure: US extremity nonvascular RT US extremity nonvascular RT 10/15/2024 1:21 PM SIGNS AND SYMPTOMS: ^R22.1 LOCALIZED SWELLING, MASS/ LUMP OF RT LEG/catheter PROTOCOL: Grayscale and color sonographic images of the calf were obtained in the region of palpable abnormality. COMPARISON: None FINDINGS: There is a well-circumscribed echogenic structure measuring 6 x 6 x 3 mm in greatest dimension within the subcutaneous fat in the region of palpable abnormality. This is nonspecific but may represent an echogenic lipoma. There is no evidence of cyst, mass, or hyperemia. No abnormal vasculature. The underlying gastrocnemius musculature appears to be grossly within normal limits. US/US extremity nonvascular RT IMPRESSION: There is a well-circumscribed echogenic structure measuring 6 x 6 x 3 mm in greatest dimension within the subcutaneous fat in the region of palpable abnormality. This is nonspecific but may represent an echogenic lipoma. Close clinical observation is recommended with repeat imaging as symptoms warrant. Contrast-enhanced MRI may be helpful in further characterizing this lesion. Impression dictated by: Flavio Hobbs M.D.10/15/2024 1:54 PM Dictation Location: [place] [address] Electronically authenticated by: [id number] Y Date: 10/15/2024 13:54
--- OUTSIDE RECORDS SUMMARY | 2024-10-15 12:53 | XMS_ITS | CCD ---
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 Name Role Phone AICHHOLZ, 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 MARRY Primary Care Unavailable AICHHOLZ, 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 MARRY Consulting Unavailable AICHHOLZ, 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 MARRY Attending Unavailable AICHHOLZ, 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 MARRY Admitting Unavailable DR LOREN WHEATLEY Consulting Unavailable AICHHOLZ, 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 MARRY Primary Care Unavailable AICHHOLZ, 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 MARRY Admitting Unavailable AICHHOLZ, 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 MARRY Attending Unavailable AICHHOLZ, 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 MARRY Consulting Unavailable AICHHOLZ, 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 MARRY Attending Unavailable AICHHOLZ, 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 MARRY Admitting Unavailable AICHHOLZ, 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 MARRY Primary Care Unavailable AICHHOLZ, 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 MARRY Consulting Unavailable AICHHOLZ, 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 MARRY Attending Unavailable AICHHOLZ, 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 MARRY Admitting Unavailable AICHHOLZ, 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 MARRY Primary Care Unavailable AICHHOLZ, 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 MARRY Consulting Unavailable DR LOREN WHEATLEY Consulting Unavailable AICHHOLZ, 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 MARRY Consulting Unavailable AICHHOLZ, 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 MARRY Admitting Unavailable AICHHOLZ, 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 MARRY Primary Care Unavailable AICHHOLZ, 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 MARRY Attending Unavailable AICHHOLZ, 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 MARRY Primary Care Unavailable AICHHOLZ, 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 MARRY Consulting Unavailable AICHHOLZ, 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 MARRY Attending Unavailable AICHHOLZ, 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 MARRY Admitting Unavailable DR LOREN WHEATLEY Consulting Unavailable AICHHOLZ, 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 MARRY Primary Care Unavailable AICHHOLZ, 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 MARRY Consulting Unavailable AICHHOLZ, 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 MARRY Attending Unavailable AICHHOLZ, 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 MARRY Admitting Unavailable DR LOREN WHEATLEY Consulting Unavailable Rylee Barrientos Unavailable Dayanara Thompson Unavailable ALLAN Aly Primary Care Provider LAUREN Thompson Attending Provider PATTIMARRY Rosales J Primary Care Physician [phone] Unavailable Primary Care Provider Unavailabl e HART, TOMS Attending Unavailable HART, TOMS Admitting Unavailable Roxann HUTCHINS Attending Unavailable Aichholz 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, Marry Mariaa Primary Care Provider Rohrbacher WRAPPER OPENER, Nadege Unavailable Unavaila ble Rohrbacher WRAPPER OPENER, Nadege Primary Care Provider Rohrbacher, FAIRING MAN Nadege Primary Care Provider RohrbLAUREN choudhury Attending Provider [phone] MARRY CHUNG Referring Unavailable AICHHOLZ, MARRY MARIAA Primary Care Unavailable HART, TOMS Referring Unavailable HART, TOMS Attending Unavailable HART, TOMS Referring Unavailable BLANCA, MEREDITH Referring Unavailable LAINEY, TIM Referring Unavailable ROHRBACHER, NADEGE Primary Care Unavailable ROHRBACHER, NADEGE Primary Care Unavailable LAINEY, TIM Attending Unavailable LAINEY, TIM Referring Unavailable ROHRBACHER, NADEGE Primary Care Unavailable LAINEY, TIM Attending Unavailable LAINEY, TIM Referring Unavailable ROHRBACHER, NADEGE Primary Care Unavailable LAINEY, TIM Referring Unavailable ROHRBACHER, NADEGE Primary Care Unavailable AICHHOLZ, MARRY MARIAA Referring Unavailable LAINEY, TIM Attending Unavailable AICHHOLZ, MARRY MARIAA Primary Care Unavailable BLANCA, MEREDITH Attending Unavailable HART, TOMS Referring Unavailable AICHHOLZ, MARRY MARIAA Primary Care Unavailable AICHHOLZ, MARRY MARIAA Primary Care Unavailable HART, TOMS Referring Unavailable AICHHOLZ, MARRY MARIAA Primary Care Unavailable Unavailable Primary Care Provider Unavailtwin e LAUREN Lawson Attending Provider Nadege Aly Primary Care Unavailable Dayanara Thompson Admitting Unavailable Dayanara Thompson Attending Unavailable Rohrbacher, Nadege Attending Unavailable Rohrbacher, Nadege Admitting Unavailable Rohrbacher, Nadege Primary Care Unavailable Rohrbacher, Nadege Admitting Unavailable Rohrbacher, Nadege Attending Unavailable Unavailable Primary Care Provider Unavailabl e Allergies Allergy Classification Reported Allergen(s) Allergy Type Date of Onset Reaction(s) Facility Dihydrofolate Reductase Inhibitors (antibiotic) (1 source) Trimethoprim Drug Allergy 01-27-20 sick to [facility] Sulfonamides (antibiotic) (3 sources) Sulfonamides (Antibiotic) Drug Allergy 07-18-20 [facility] Tetracyclines (antibiotic) (1 source) Tetracyclines Drug Allergy 01-27-20 24 Itching, rash [facility] (2 sources) Tetracycline; Translations: [tetracycline] Drug Allergy 06-17-20 21 [facility] Rep[facility] (3 sources) Sulfamethoxazole / Trimethoprim Drug Allergy sick to [facility] Prevacus Other (3 sources) Sulfonamides (Antibiotic) Propensity to adverse reactions hives [facility] Prevacus Other (15 sources) Tetracyclines; Translations: [TETRACYCLINES] Propensity to adverse reactions 12-11-19 [facility] (2 sources) Sulfonamides (Antibiotic); Translations: [sulfa drugs] Propensity to adverse reactions to drug Eruption of skin (disorder) [facility] (1 source) Tetracycline; Translations: [tetracycline] Drug Allergy Dyspnea (finding) [facility] (20 sources) Sulfonamides (Antibiotic); Translations: [SULFA (SULFONAMIDE ANTIBIOTICS)] Propensity to adverse reactions to drug (disorder) 07-18-20 [facility] Rep[facility] (9 sources) Tetracycline (class of antibiotic) Drug Allergy 12-11-19 18 Itching, Rash, Shortness of Breath [facility] (10 sources) Sulfamethoxazole; Translations: [sulfamethoxazole] Drug Allergy 10-13-19 sick to [facility] (10 sources) Trimethoprim; Translations: [trimethoprim] Drug Allergy 10-13-19 sick to [facility] (3 sources) OTHER; Translations: [OTHER] Propensity to adverse reactions to food (disorder) 03-23-20 [facility] (1 source) Tetracyclines Drug allergy (disorder) 06-21-20 [facility] Medications Current Medications Medication Drug Class(es) Dates Sig (Normalized) Sig (Original) Albuterol (14 sources) beta2-Adrenergic Agonist Start: 04-29-2024 take 1 puff(s) by inhalation every four to six hours Albuterol Sulfate Active 2 PUFF INHALATION EVERY 4-6 HOURS 6.7 April 29, 2024 12:00am Start: 09-10-2023 take 3 mL by inhalat ion four times daily as needed for wheezing albuterol (PROVENTIL) 2.5 mg /3 mL (0.083 %) nebulizer solution Indications: Pre-op examination Use 3 mL via nebulizer four times a day as needed for wheezing/shortness of breath. Inhale by nebulizer over 5-15 minutes 09/10/2023 Active take 2 puff(s) by in [...] breath. Inhale by nebulizer over 5-15 minutes albuterol-budesonide 90-80 mcg/actuation HFA aerosol inhaler (1 source) albuterol-budeso nide 90-80 mcg/actuation HFA aerosol inhaler Albuterol Active ascorbic acid 500 mg oral capsule (10 sources) Vitamin C Start: 10-13-19 Ascorbic Acid (Vitamin C) Active MG PO October 13, 2023 1:00am 24 hr buPROPion hydrochloride 150 mg extended release oral tablet (20 sources) Aminoketone Start: 06-13-20 take 1 tablet by mouth once daily Bupropion Hcl Active 0 .ROUTE .COMPLEX 90 June 13, 2024 11:32am TAKE 1 TABLET BY MOUTH EVERY DAY Start: 01-12-2024 End: 01-12-2024 take 150 mg by mouth once daily in the morning Bupropion Hcl Discontinued 150 MG PO Every morning January 12, 2024 8:32am January 12, 2024 9:03am Start: 01-12-2024 End: 06-13-2024 take 150 mg by mouth once daily in the morning Bupropion Hcl Discontinued 150 MG PO Every morning January 12, 2024 12:00am June 13, 2024 11:32am Start: 12-23-2023 End: 01-12-2024 take 300 mg [...] SR) 150 mg 12 hr tablet Wellbutrin Active take 1 tablet by alma th every twenty-four hours Wellbutrin SR 150 MG 1 tablet in the morning Orally Once a day Active Comment on above: Wellbutrin celecoxib 100 mg oral capsule (9 sources) Nonsteroidal Anti-inflammatory Drug Start: 01-15-2024 take 100 mg by mouth twice daily Celecoxib Active 100 MG PO Twice daily January 27, 2024 12:00am Start: 01-15-2024 take 1 capsule by mo ut once daily as needed celecoxib (CeleBREX) 100 mg capsule Take 1 capsule (100 mg total) by mouth daily as needed. 01/15/2024 Active cephalexin 500 mg oral capsule (2 sources) Cephalosporin Antibacterial Start: 07-11-2023 take 1 capsule by mouth every eight hours Cephalexin 500 MG 1 capsule Orally every 8 hrs for 7 Jun, Active cetirizine hydrochloride 10 mg oral tablet (8 sources) Histamine-1 Receptor Antagonist Start: 01-13-2020 cetirizine (ZYRTEC) 10 mg tablet Take by mouth every 12 hours. 01/13/2020 Active Start: 01-13-2020 take 1 tablet by alma th every twelve hours Cetirizine HCl 10 MG 1 tablet Orally bid for 5 days December, Active citalopram 40 mg oral tablet (20 sources) Serotonin Reuptake Inhibitor Start: 12-10-2017 End: 06-21-2024 take 1 tablet by mouth in the morning citalopram (CeleXA) 40 mg tablet Take 1 tablet (40 mg total) by mouth in the morning. 07/23/2023 Active Comment on above: Take 40 mg by mouth. cycloSPORINE 0.5 mg/ml ophthalmic suspension (7 sources) Calcineurin Inhibitor Immunosuppressant Start: 03-07-2024 cycloSPORINE 0.05 % drops Twice daily 03/07/2024 Active Start: 03-07-2024 take 1 drop(s) into the eye(s) twice daily Cyclosporine (Restasis) 0.05 % dropperette Active 1 DROPS OPHTHALMIC Twice daily March 07, 2024 12:00am cyclosporine (RE STASIS OPHTHALMIC) Use in eyes. Active ELDERBERRY FRUIT (10 sources) Start: 10-13-2023 Elderberry Fru it Active MG PO October 13, 2023 1:00am Start: 10-13-2023 Elderberry Fru it Active MG PO October 13, 2023 12:00am montelukast 10 mg oral tablet (10 sources) Leukotriene Receptor Antagonist Start: 01-27-2024 End: 06-21-2024 take 1 tablet by mouth once daily montelukast (SINGULAIR) 10 mg tablet Take 1 tablet (10 mg total) by mouth nightly. 01/27/2024 Active montelukast sodi um (SINGULAIR ORAL) Take by mouth once daily. For allergies Active omeprazole 40 mg delayed release oral capsule (20 sources) Proton Pump Inhibitor Start: 02-09-2019 take 1 capsule by mouth once daily before breakfast omeprazole (PriLOSEC) 40 mg capsule Take 1 capsule (40 mg total) by mouth every morning before breakfast. 07/23/2023 Active Comment on above: Take 40 mg by mouth. phenazopyridine hydrochloride 200 mg oral tablet (2 sources) Start: 07-11-2023 take 1 tablet by mouth every eight hours Pyridium 200 MG 1 tablet after meals Orally Three times a day for 2 day(s) Jun, Active phentermine hydrochloride 37.5 mg oral capsule (20 sources) Sympathomimetic Amine Anorectic Start: 10-13-2023 End: 06-21-2024 take 1 capsule by mouth once daily in the morning phentermine 37.5 MG capsule Take 1 capsule (37.5 mg total) by mouth every morning. 12/15/2023 Active vitamin b12 0.1 mg oral tablet (1 source) Vitamin B12 take 1 tablet by mouth in the morning cyanocobalamin (vitamin B-12) 100 MCG tablet Take 1 tablet (100 mcg total) by mouth in the morning. Active Completed/Discontinued Medications Medication Drug Class(es) Dates Sig (Normalized) Sig (Original) amoxicillin 875 mg / clavulanate 125 mg oral tablet (3 sources) Penicillin-class Antibacterial Start: 05-31-2023 take 1 tablet by mouth every twelve hours Amoxicillin-Pot Clavulanate 875-125 MG 1 tablet Orally every 12 hrs for 7 days May, Not-Taking azithromycin 500 mg oral tablet (11 sources) Macrolide Antimicrobial Start: 02-07-2019 End: 02-09-2019 take 500 mg by mouth once daily Azithromycin Discontinued 500 MG PO Daily February 07, 2019 12:00am February 09, 2019 12:26pm Cranberry (11 sources) Non-Standardized Food Allergenic Extract, Non-Standardized Plant [...] 11:00pm diphenhydrAMINE hydrochloride 25 mg oral capsule (11 sources) Histamine-1 Receptor Antagonist Start: 08-04-2023 End: 04-19-2024 diphenhydrAMINE (BENADRYL) 25 mg capsule Take both capsules [address] Scan 2 capsule 08/04/2023 04/19/2024 Discontinued Comment on above: Take both capsules [address] Scan iv contrast (will be provided with radiology test) (11 sources) Start: 08-03-2023 End: 04-19-2024 iv contrast (will be provided with radiology [...] CT contrast administration guidelines link. 1 Each 08/03/2023 04/19/2024 Discontinued Start: 08-03-2023 iv contrast (w ill be provided with radiology test) Indications: Calculus [...] CT contrast administration guidelines link. Lactobacillus acidophilus (8 sources) End: 01-15-2024 Lactobacillus acidophilus (PROBIOTIC ORAL) Take by mouth once daily. 0 01/15/2024 Discontinued Lactobacillus ac idophilus (PROBIOTIC ORAL) Take by mouth once daily. 0 Active Comment on above: Take by mouth once d aily. Lactobacillus Combination No.9 (Adult 50 Plus Probiotic) 4 billion cell capsule (10 sources) Start: 4 End: 4 take 4 capsules by mouth once daily Lactobacillus Combination No.9 (Adult 50 Plus Probiotic) 4 billion cell capsule Discontinued 4000 MMU CELLS PO Daily October 13, 2023 1:00am June 21, 2024 8:32am administer with a meal Start: 10-13-2023 take [...] 13, 2023 12:00am administer with a meal methylPREDNISolone 4 mg oral tablet (2 sources) Corticosteroid Start: 04-08-2024 End: 06-21-2024 take 1 tablet by mouth once Methylprednisolone (Medrol (Mario)) 4 mg tablets,dose pack Discontinued 0 PO per package directions April 08, 2024 12:00am June 21, 2024 8:32am PO PER PKG DIR Multivitamin preparation (11 sources) Start: 12-10-2017 End: 10-13-2023 take 1 tablet by mouth once daily Multivitamin Discontinued 1 TAB PO Daily December 10, 2017 12:00am October 13, 2023 2:10pm Start: 12-10-2017 End: 10-13-2023 take 1 tablet by mouth once daily Multivitamin Discontinued 1 TAB PO Daily December 09, 2017 11:00pm October 13, 2023 1:10pm Start: 12-10-2017 take 1 tablet by alma once daily Multivitamin Active 1 TAB PO Daily December 09, 2017 11:00pm nitrofurantoin, macrocrystals 25 mg / nitrofurantoin, monohydrate 75 mg oral capsule (5 sources) Nitrofuran Antibacterial Start: 03-07-2024 End: 04-04-2024 take 1 capsule by mouth twice daily at mealtime Nitrofurantoin Monohyd/M-Cryst (Macrobid) 100 mg capsule Discontinued 100 MG PO Twice daily 10 March 07, 2024 12:00am April 04, 2024 9:57am must administer with a meal/food predniSONE 50 mg oral tablet (18 sources) Start: 08-04-2023 End: 01-06-2024 predniSONE (DELTASONE) 50 mg Take 1 tablet 13 hours, 7 hours, and 1 hour before Cat Scan 3 tablet 08/04/2023 01/06/2024 Discontinued (Course of therapy completed) Start: 02-07-2019 End: 02-09-2019 take 1 mg by mouth once daily Prednisone Discontinued 1 MG PO Daily February 07, 2019 12:00am February 09, 2019 12:26pm Comment on above: Take 1 tablet 13 lesia rs, 7 hours, and 1 hour before Cat Scan traZODone hydrochloride 50 mg oral tablet (20 sources) Serotonin Reuptake Inhibitor Start: 4 End: 4 take 50 mg by mouth once daily at bedtime Trazodone Discontinued 50 MG PO Daily at bedtime 90 90 January 12, 2024 8:58am June 21, 2024 8:47am Start: 04-29-2023 take 3 tablets by mo uth once daily traZODone (DESYREL) 50 mg tablet Take 3 tablets (150 mg total) by mouth nightly. 04/29/2023 Active Problems Active Problems Problem Classification Problem Date Documented Da te Episodic/Chronic Anxiety disorders (18 sources) Anxiety; Translations: [Anxiety disorder, unspecified] Onset: 4 12-15-2023 Chronic Asthma (20 sources) Allergic asthma; Translations: [Unspecified asthma, uncomplicated] Onset: 0 02-07-2019 Chronic Biliary tract disease (16 sources) Cholelithiasis without obstruction; Translations: [Calculus of gallbladder without cholecystitis without obstruction] Onset: 3 Episodic Deficiency and other anemia (11 sources) Anemia due to blood loss; Translations: [Iron deficiency anemia secondary to blood loss (chronic)] 02-15-2019 Chronic Deficiency and other anemia (3 sources) Iron deficiency anemia secondary to blood loss (chronic); Translations: [Iron deficiency anemia secondary to blood loss (chronic)] 10-13-2023 Chronic Diseases of mouth; excluding dental (10 sources) Xerostomia; Translations: [Dry mouth, unspecified] 01-06-2024 Episodic E Codes: Natural/environment (3 sources) Bitten by cat, initial encounter; Translations: [Cat bite] Episodic Esophageal disorders (20 sources) Gastroesophageal reflux disease; Translations: [Gastro-esophageal reflux disease without esophagitis] Onset: 4 09-09-2023 Chronic Gastroduodenal ulcer (except hemorrhage) (18 sources) Antral ulcer; Translations: [Gastric ulcer, unspecified as acute or chronic, without hemorrhage or perforation] Onset: 4 02-15-2019 Chronic Gastroduodenal ulcer (except hemorrhage) (1 source) H/O: gastric ulcer 07-23-2023 Episodic Gastrointestinal hemorrhage (20 sources) Hematemesis; Translations: [Hematemesis] Onset: 4 02-07-2019 Episodic Immunizations and screening for infectious disease (15 sources) Anti-nuclear factor positive; Translations: [Other specified abnormal immunological findings in serum] Onset: 4 10-21-2023 Episodic Malaise and fatigue (20 sources) Other fatigue; Translations: [Fatigue] Onset: 3 Episodic Mood disorders (20 sources) Major depression, single episode; Translations: [Major depressive disorder, single episode, unspecified] Onset: 4 02-07-2019 Chronic Nonspecific chest pain (11 sources) Chest wall pain; Translations: [Other chest [...] 3 Episodic Other and unspecified benign neoplasm (4 sources) Hemangioma of liver; Translations: [Hemangioma of intra-abdominal structures] Onset: 4 07-21-2023 Episodic Other and unspecified benign neoplasm (11 sources) Hemangioma; Translations: [Hemangioma unspecified site] Onset: 4 10-13-2023 Episodic Other and unspecified benign neoplasm (3 sources) Hemangioma unspecified site; Translations: [Hemangioma of unspecified site] 10-13-2023 Episodic Other and unspecified benign neoplasm (2 sources) Hemangioma of intra-abdominal structures; Translations: [Hemangioma of intra-abdominal structures] 06-21-2024 Episodic Other connective tissue disease (12 sources) Fibromyalgia; Translations: [Fibromyalgia] Onset: 4 07-23-2023 Episodic Other connective tissue disease (3 sources) Fibromyalgia; Translations: [Myalgia and myositis, unspecified] 10-13-2023 Episodic Other liver diseases (4 sources) Liver disease, unspecified; Translations: [LIVER DISEASE UNSPECIFIED] Onset: 2 Chronic Other liver diseases (2 sources) Liver mass; Translations: [Hepatomegaly, not elsewhere classified] 08-03-2023 Episodic Other nervous system disorders (2 sources) Chronic pain syndrome; Translations: [Chronic pain syndrome] 01-06-2024 Chronic Other non-traumatic joint disorders (10 sources) Joint finding; Translations: [Joint disorder, unspecified] 10-13-2023 Episodic Other non-traumatic joint disorders (3 sources) Joint disorder, unspecified; Translations: [Unspecified disorder of joint, multiple sites] 10-13-2023 Episodic Other non-traumatic joint disorders (3 sources) Multiple joint pain; Translations: [Pain in unspecified joint] 01-06-2024 Episodic Other nutritional; endocrine; and metabolic disorders (14 sources) Obese class I; Translations: [Body mass index (BMI) 31.0-31.9, adult] Onset: 3 Chronic Other nutritional; endocrine; and metabolic disorders (10 sources) Body mass index 30+ - obesity; Translations: [Body mass index (BMI) 31.0-31.9, adult] Onset: 4 07-23-2023 Chronic Other nutritional; endocrine; and metabolic disorders (1 source) Obesity 07-23-2023 Chronic Other nutritional; endocrine; and metabolic disorders (17 sources) Obesity, unspecified; Translations: [Obesity, unspecified] 10-13-2023 Chronic Other screening for suspected conditions (not mental disorders or infectious disease) (20 sources) Encounter for screening mammogram for malignant neoplasm of breast; Translations: [Other abnormal and inconclusive findings on diagnostic imaging of breast] Onset: 2 Episodic Other skin disorders (3 sources) Easy bruising; Translations: [Other skin changes] Episodic Other skin disorders (3 sources) Skin lesion; Translations: [Disorder of the skin and subcutaneous tissue, unspecified] 04-04-2024 Episodic Other skin disorders (3 sources) Disorder of the skin and subcutaneous tissue, unspecified; Translations: [Unspecified disorder of skin and subcutaneous tissue] 04-04-2024 Episodic Other upper respiratory disease (7 sources) Seasonal allergy; Translations: [Other seasonal allergic rhinitis] Onset: 4 01-27-2024 Chronic Other upper respiratory disease (5 sources) Other seasonal allergic rhinitis; Translations: [Allergic rhinitis, cause unspecified] 01-27-2024 Chronic Residual codes; unclassified (3 sources) Sleep apnea; Translations: [Sleep apnea, unspecified] Chronic Residual codes; unclassified (1 source) Obstructive sleep apnea (adult) (pediatric); Translations: [MARKY (obstructive sleep apnea)] Onset: Chronic Residual codes; unclassified (10 sources) Family history of Yvonne thyroiditis; Translations: [Family history of other endocrine, nutritional and metabolic diseases] 10-13-2023 Episodic Residual codes; unclassified (10 sources) Family history of diabetes mellitus; Translations: [Family history of diabetes mellitus] 10-13-2023 Episodic Residual codes; unclassified (10 sources) FH: Rheumatoid arthritis; Translations: [Family history of arthritis] 10-13-2023 Episodic Residual codes; unclassified (3 sources) Family history of other endocrine, nutritional and metabolic diseases; Translations: [Family history of other endocrine and metabolic diseases] 10-13-2023 Episodic Residual codes; unclassified (3 sources) Family history of arthritis; Translations: [Family history of arthritis] 10-13-2023 Episodic Residual codes; unclassified (19 sources) Family history of diabetes mellitus; Translations: [Family history of diabetes mellitus] 10-13-2023 Episodic Residual codes; unclassified (9 sources) Disturbance in sleep behavior; Translations: [Sleep disorder, unspecified] Onset: 4 12-15-2023 Episodic Residual codes; unclassified (10 sources) Sleep disorder, unspecified; Translations: [Sleep disturbance, unspecified] 12-15-2023 Episodic Skin and subcutaneous tissue infections (1 source) Cellulitis of left lower limb Episodic Unclassified (1 source) Gynecologic Exam Onset: 4 Urinary tract infections (10 sources) Acute cystitis with hematuria; Translations: [Urinary tract infectious disease] Onset: 4 Episodic Past or Other Problems Problem Classification Problem Date Documented Date Episodic/Chronic Abdominal pain (16 sources) Generalized abdominal pain; Translations: [Right upper quadrant pain] Onset: 05-30-2022 Episodic Genitourinary symptoms and ill-defined conditions (6 sources) Other microscopic hematuria; Translations: [Dysuria] Onset: 06-17-2022 Episodic Mood disorders (1 source) Mood disorders Onset: 03-23-2024 03-23-2024 Other aftercare (1 source) Encounter for follow-up examination after completed treatment for conditions other than malignant neoplasm; Translations: [S/P gastrointestinal surgery, follow-up exam] Onset: 09-30-2023 Episodic Other liver diseases (1 source) Hepatomegaly, not elsewhere classified; Translations: [Liver mass] Onset: 08-21-2023 Episodic Other non-traumatic joint disorders (2 sources) Pain in unspecified joint; Translations: [PAIN IN UNSPECIFIED JOINT] Onset: 10-10-2022 Episodic Residual codes; unclassified (5 sources) Obstructive sleep apnea syndrome; Translations: [Obstructive sleep apnea (adult) (pediatric)] Onset: 09-09-2023 Resolved: 09-10-2023 09-10-2023 Chronic Residual codes; unclassified (10 sources) Other specified postprocedural states; Translations: [Other postprocedural status] Onset: 09-10-2023 09-10-2023 Episodic Residual codes; unclassified (1 source) Acquired absence of other specified parts of digestive tract; Translations: [S/P laparoscopic cholecystectomy] Onset: 09-30-2023 Episodic Residual codes; unclassified (1 source) Family history of breast cancer; Translations: [Family history of malignant neoplasm of breast] Onset: 03-23-2024 03-23-2024 Episodic Residual codes; unclassified (1 source) Family history of malignant neoplasm of pancreas; Translations: [Family history of malignant neoplasm of digestive organs] Onset: 03-23-2024 03-23-2024 Episodic Screening and history of mental health and substance abuse codes (1 source) Standardized adult depression screening tool completed ; Translations: [Encounter for screening for depression] 03-23-2024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 Normal Negative [facility] Comment on above: Order Comment: Speci men Type: BLOOD SPECIMEN Ordering Facility: [facility] Address: [address] [place] [address] Performed By: #### 2 157-6, 49922-7 #### [facility] CLIA [id number] [address] [place] [address] [place] pH (U) 7.0 [pH] Normal <8.5 [facility] Comment on above: Order Comment: Speci men Type: BLOOD SPECIMEN Ordering Facility: [facility] Address: [address] [place] [address] Performed By: #### 2 157-6, 90894-2 #### [facility] CLIA [id number] [address] [place] [address] [place] Protein (U) [Mass/Vol] Negative Normal Negative [facility] Comment on above: Order Comment: Speci men Type: BLOOD SPECIMEN Ordering Facility: [facility] Address: [address] [place] [address] Performed By: #### 2 157-6, 39358-3 #### [facility] CLIA [id number] [address] [place] [address] [place] RBC LM.HPF (Urine sed) [#/Area] 0-2 /HPF Normal 0-2 /HPF [facility] Comment on above: Order Comment: Speci men Type: BLOOD SPECIMEN Ordering Facility: [facility] Address: [address] [place] [address] Performed By: #### 2 157-6, 52639-6 #### [facility] [place] [id number] [address] [place] [address] [place] Specific gravity (U) [Rel density] 1.015 Normal 1.005-1.030 [facility] Comment on above: Order Comment: Speci men Type: BLOOD SPECIMEN Ordering Facility: [facility] Address: [address] [place] [address] Performed By: #### 2 157-6, 13453-5 #### [facility] CLIA [id number] [address] [place] [address] [place] Urobilinogen Ql (U) 0.2 EU/dL Normal 0.2-1.0 EU/dL [facility] Comment on above: Order Comment: Speci men Type: BLOOD SPECIMEN Ordering Facility: [facility] Address: [address] [place] [address] Performed By: #### 2 157-6, 46701-2 #### [facility] CLIA [id number] [address] [place] [address] [place] WBC LM.HPF (Urine sed) [#/Area] 0-5 /HPF Normal 0-5 /HPF [facility] Comment on above: Order Comment: Speci men Type: BLOOD SPECIMEN Ordering Facility: [facility] Address: [address] [place] [address] Performed By: #### 2 157-6, 43332-0 #### [facility] IA [id number] [address] [place] [address] [place] Urine protein/creatinine rat ioon 04-19-2024 Protein/Creatinine (U) [Ratio] <0.06 mg/mg <0.15 [facility] Comment on above: Adult Proteinuria Ca tegories:<0.15 mg/mg is considered normal to mildly increased0.15 - 0.50 mg/mg is considered moderately increased>0.50 mg/mg is considered severely increasedKDIGO. (2013). KDIGO 2012 Clinical Practice Guideline for the Evaluation and Management of Chronic Kidney Disease. Official Journal of the International Society of Nephrology, 3(1), 1-150. dsDNA Ab Ser Ql CLIFon 04-19 DNA double strand Ab IF Crithidia luciliae Ql (S) Negative Normal Negative [facility] Comment on above: Order Comment: Speci men Type: BLOOD SPECIMENOrdering Facility: [facility] Address: [address] [place] [address] Result Comment: Crit hidia luciliae assay is used as an aid in diagnosis of systemic lupus erythematosus (SLE). A negative result cannot rule out SLE. Low positive titers may be seen with other systemic autoimmune diseases. Clinical correlation is required. Performed By: #### 6 457-6 ####[facility] [id number] [address] [facility] Cytologyon 03-23-2024 Cytology Normal [facility] Comment on above: Result Comment: [facility] [address] [place] [address] Gynecologic Cytology Consultation Patient Name:ANN DAVIDSONB:1970 (Age: 53)Gender:FTaken:4Reported:03/30/2024hysician(s):Marry Chung APRN-CNPCopy To: Rec. #:[id number]: #[id number] Final Cytologic Interpretation ThinPrep Pap Test (Cervical): Satisfactory for evaluation. NEGATIVE FOR INTRAEPITHELIAL LESION OR MALIGNANCY. jja/03/30/2024 [place] [address], License number: [id number]. Electronically Signed Out By STANLEY Alfonso(ASCP) Date of Last Menstrual Period: (None Given) Other Clinical Conditions: Menopausal Clinical History: POSTMENOPAUSAL Z01.419 Director Of Enterprise Strategy exam wo/abn findings Source of Specimen ThinPrep Pap Test (Cervical) Thin Prep Pap (ADVANCED DEVELOPER) Fee Code(s): G0145 The Pap test is a screening test with an inherent, but low, probability of error. The Pap test is primarily effective for the diagnosis and prevention of squamous cell carcinoma. Regular screening is critical for prevention. ThinPrep liquid-based slides, which meet the Forklift Wheel Loader criteria for automated screening, have been screened by the ThinPrep Imaging System (as of 05/10/07) along with an additional manual rescreening by a master certified rv technician and, if indicated, by a pathologist. HIGH RISK HPV W/GENOon 03-23 HPV 31+33+35+39+45+51+52+5 6+58+59+66+68 DNA EMEKA+probe Ql (Cvx) HPV SPECIMEN TYPE ThinPrep HPV 16 Negative (qualifier value) HPV 18 Negative (qualifier value) OTHER HIGH RISK HPV Negative (qualifier value) HPV types 31,33,35,39,45,52,56,58, 59,66 and 68 DNA were undetectable. Normal [facility] Comment on above: Performed By: #### 7 1431-1 #### [facility] ([id number]) [address] [facility] [place], [place] [address] [place] [address] LAB ([id number]) [address] [place] [address], [address] [place] [address] Laboratory - Chemistry and C hemistry - challengeon 03-07-2024 Bilirubin Ql (U) Negative [facility] Glucose (U) [Mass/Vol] [facility] Ketones Ql (U) Negative [facility] pH (U) 5.0 [pH] [facility] Specific gravity (U) [Rel density] 1.025 [facility] Urobilinogen (U) [Mass/Vol] 0.2 mg/dL [facility] Laboratory - Specimen inform ationon 03-07-2024 Appearance (U) Clear [facility] Color (U) Yellow [facility] Laboratory - Urinalysison Leukocyte esterase Test strip Ql (U) Trace [facility] Nitrite Ql (U) Negative [facility] Protein Ql (U) Trace [facility] No Panel Informationon 03-07 Urine Occult Blood 2+ [facility] Urine Cultureon 03-07-2024 Bacteria identified Cx Nom (U) 25,000 colonies/ml mixed bacterial skin contaminants 2 Days PERFORMED BY: [facility] [address] [facility] [place] [address] PATHOLOGIST INDUSTRIAL RELATIONS SPECIALIST ALICE MOORE M.D. Normal [facility] Comment on above: Performed By: #### C UU #### [facility] [address] Urine culture routineOrdered By: Nadege Lawson on 03-07-2024 Bacteria identified Cx Nom (U) 2 Days [facility] 25(OH)D3 SerPl-mCncon 2023 25-hydroxyvitamin D3 [Mass/Vol] 27.4 ng/mL Low 31.0-80.0 [facility] Comment on above: Order Comment: Speci men Type: BLOOD SPECIMEN Ordering Facility: [facility] Address: [address] [place] [address] Result Comment: Clas sification of 25 [place] Vitamin D status: Deficiency/Insufficiency: < or = 30 ng/ml. Sufficiency/Optimal Levels: 31-80 ng/mL Toxicity: > 100 ng/mL. Test performed by chemiluminescent immunoassay. Performed By: #### 2 157-6, 63404-8 #### [facility] CLIA [id number] [address] [place] [address] [place] ALONDRA BY IFA SCREENon 01-06-20 24 Nuclear Ab pattern (S) [Interp] Nuclear homogeneous Normal [facility] Comment on above: Order Comment: Speci men Type: BLOOD SPECIMEN Ordering Facility: [facility] Address: [address] [place] [address] Performed By: #### 2 157-6, 86143-5 #### [facility] CLIA [id number] [address] [place] [address] [place] Nuclear Ab Ql (S) Positive Abnormal Negative [facility] Comment on above: Order Comment: Donte davis Type: BLOOD SPECIMEN Ordering Facility: [facility] Address: [address] [place] [address] Result Comment: Anti -nuclear antibody test is used as an aid in diagnosis of systemic autoimmune diseases. Where positive and clinically warranted, follow-up using disease-specific testing is recommended. Low positive titers are not uncommon with advanced age, certain chronic infections, and malignancies among others. Test methodology: Indirect fluorescence immunoassay (IFA) using HEp-2 cells. 1:160 Performed By: #### 2 157-6, 67647-1 #### [facility] CLIA [id number] [address] [place] [address] [place] Albumin [Mass/volume] in Ser um or Plasmaon 01-06-2024 Albumin [Mass/Vol] 4.66 g/dL 3.43-5.41 [facility] Basophils Auto (Bld) [#/Vol] on 01-06-2024 Basophils (Bld) [#/Vol] 0.06 10*3/uL <0.11 [facility] Basophils/100 WBC Auto (Bld) on 01-06-2024 Basophils/100 WBC (Bld) 1.3 % [facility] Blood manual differential co mment interpretation narrativeon 01-06-2024 Manual differential comment Killian (Bld) [Interp] Auto [facility] C-REACTIVE PROTEINon 024 CRP [Mass/Vol] mg/dL NINF - 0.9 mg/dL [facility] C3 COMPLEMENTon 01-06-2024 Complement C3 [Mass/Vol] 155 mg/dL 86 - 166 mg/dL [facility] C3 SerPl-mCncon 01-06-2024 Complement C3 [Mass/Vol] 155 mg/dL Normal 86-166 [facility] Comment on above: Order Comment: Donte davis Type: BLOOD SPECIMEN Ordering Facility: [facility] Address: [address] [place] [address] Performed By: #### 2 157-6, 45684-4 #### [facility] CLIA [id number] [address] [place] [address] [place] C4 COMPLEMENTon 01-06-2024 Complement C4 [Mass/Vol] 25 mg/dL 13 - 46 mg/dL [facility] C4 SerPl-mCncon 01-06-2024 Complement C4 [Mass/Vol] 25 mg/dL Normal 13-46 [facility] Comment on above: Order Comment: Speci men Type: BLOOD SPECIMEN Ordering Facility: [facility] Address: [address] [place] [address] Performed By: #### 2 157-6, 52711-2 #### [facility] CLIA [id number] [address] [place] [address] [place] CBC W Auto Differential pane l (Bld)on 01-06-2024 Basophils (Bld) [#/Vol] 0.06 10*3/uL [facility] Basophils/100 WBC (Bld) 1.3 % [facility] Differential cell count method Nom (Bld) Auto [facility] Eosinophils (Bld) [#/Vol] 0.19 10*3/uL [facility] Eosinophils/100 WBC (Bld) 4.1 % [facility] Erythrocyte distribution width (RBC) [Ratio] 12.2 % 11.5 - 15.0 % [facility] Hematocrit (Bld) [Volume fraction] 44.3 % 36.0 - 46.0 % [facility] Hemoglobin (Bld) [Mass/Vol] 14.1 g/dL 11.5 - 15.5 g/dL [facility] Immature granulocytes (Bld) [#/Vol] NINF [facility] Immature granulocytes/100 WBC (Bld) 0.2 % [facility] Lymphocytes (Bld) [#/Vol] 1.86 10*3/uL [facility] Lymphocytes/100 WBC (Bld) 40.2 % [facility] MCH (RBC) [Entitic mass] 31.3 pg 26.0 - 34.0 pg [facility] MCHC (RBC) [Mass/Vol] 31.8 g/dL 30.5 - 36.0 g/dL [facility] MCV (RBC) [Entitic vol] 98.2 fL 80.0 - 100.0 fL [facility] Monocytes (Bld) [#/Vol] 0.43 10*3/uL NINF [facility] Monocytes/100 WBC (Bld) 9.3 % [facility] Neutrophils (Bld) [#/Vol] 2.08 10*3/uL [facility] Neutrophils/100 WBC (Bld) 44.9 % [facility] Nucleated RBC (Bld) [#/Vol] NINF [facility] Nucleated RBC/100 WBC (Bld) [Ratio] 0.0 % /100 WBC [facility] Platelet mean volume (Bld) [Entitic vol] 10.4 fL 9.0 - 12.7 fL [facility] Platelets (Bld) [#/Vol] 285 10*3/uL [facility] RBC (Bld) [#/Vol] 4.51 10*6/uL 3.90 - 5.2 0 m/uL [facility] WBC (Bld) [#/Vol] 4.63 10*3/uL [facility] Basophils (Bld) [#/Vol] 0.06 10*3/uL Normal <0.11 [facility] Comment on above: Order Comment: Speci men Type: BLOOD SPECIMEN Ordering Facility: [facility] Address: [address] [place] [address] Performed By: #### 2 157-6, 67869-7 #### [facility] CLIA [id number] [address] [place] [address] [place] Basophils/100 WBC (Bld) 1.3 % Normal [facility] Comment on above: Order Comment: Speci men Type: BLOOD SPECIMEN Ordering Facility: [facility] Address: [address] [place] [address] Performed By: #### 2 157-6, 79800-7 #### [facility] CLIA [id number] [address] [place] [address] [place] Differential cell count method Nom (Bld) Auto Normal [facility] Comment on above: Order Comment: Speci men Type: BLOOD SPECIMEN Ordering Facility: [facility] Address: [address] [place] [address] Performed By: #### 2 157-6, 49054-5 #### [facility] CLIA [id number] [address] [place] [address] [place] Eosinophils (Bld) [#/Vol] 0.19 10*3/uL Normal <0.46 [facility] Comment on above: Order Comment: Speci men Type: BLOOD SPECIMEN Ordering Facility: [facility] Address: [address] [place] [address] Performed By: #### 2 157-6, 95703-0 #### [facility] CLIA [id number] [address] [place] [address] [place] Eosinophils/100 WBC (Bld) 4.1 % Normal [facility] Comment on above: Order Comment: Speci men Type: BLOOD SPECIMEN Ordering Facility: [facility] Address: [address] [place] [address] Performed By: #### 2 157-6, 52084-2 #### [facility] CLIA [id number] [address] [place] [address] [place] Erythrocyte distribution width (RBC) [Ratio] 12.2 % Normal 11.5-15.0 [facility] Comment on above: Order Comment: Speci men Type: BLOOD SPECIMEN Ordering Facility: [facility] Address: [address] [place] [address] Performed By: #### 2 157-6, 25986-0 #### [facility] CLIA [id number] [address] [place] [address] [place] Hematocrit (Bld) [Volume fraction] 44.3 % Normal 36.0-46.0 [facility] Comment on above: Order Comment: Speci men Type: BLOOD SPECIMEN Ordering Facility: [facility] Address: [address] [place] [address] Performed By: #### 2 157-6, 07602-1 #### [facility] CLIA [id number] [address] [place] [address] [place] Hemoglobin (Bld) [Mass/Vol] 14.1 g/dL Normal 11.5-15.5 [facility] Comment on above: Order Comment: Speci men Type: BLOOD SPECIMEN Ordering Facility: [facility] Address: [address] [place] [address] Performed By: #### 2 157-6, 44521-9 #### [facility] CLIA [id number] [address] [place] [address] [place] Immature granulocytes (Bld) [#/Vol] 10*3/uL Normal <0.10 [facility] Comment on above: Order Comment: Speci men Type: BLOOD SPECIMEN Ordering Facility: [facility] Address: [address] [place] [address] Performed By: #### 2 157-6, 72486-9 #### [facility] CLIA [id number] [address] [place] [address] [place] Immature granulocytes/100 WBC (Bld) 0.2 % Normal [facility] Comment on above: Order Comment: Speci men Type: BLOOD SPECIMEN Ordering Facility: [facility] Address: [address] [place] [address] Performed By: #### 2 157-6, 52500-5 #### [facility] CLIA [id number] [address] [place] [address] [place] Lymphocytes (Bld) [#/Vol] 1.86 10*3/uL Normal 1.00-4.00 [facility] Comment on above: Order Comment: Speci men Type: BLOOD SPECIMEN Ordering Facility: [facility] Address: [address] [place] [address] Performed By: #### 2 157-6, 14612-5 #### [facility] CLIA [id number] [address] [place] [address] [place] Lymphocytes/100 WBC (Bld) 40.2 % Normal [facility] Comment on above: Order Comment: Speci men Type: BLOOD SPECIMEN Ordering Facility: [facility] Address: [address] [place] [address] Performed By: #### 2 157-6, 88199-8 #### [facility] CLIA [id number] [address] [place] [address] [place] MCH (RBC) [Entitic mass] 31.3 pg Normal 26.0-34.0 [facility] Comment on above: Order Comment: Speci men Type: BLOOD SPECIMEN Ordering Facility: [facility] Address: [address] [place] [address] Performed By: #### 2 157-6, 63571-6 #### [facility] CLIA [id number] [address] [place] [address] [place] MCHC (RBC) [Mass/Vol] 31.8 g/dL Normal 30.5-36.0 [facility] Comment on above: Order Comment: Speci men Type: BLOOD SPECIMEN Ordering Facility: [facility] Address: [address] [place] [address] Performed By: #### 2 157-6, 71787-2 #### [facility] CLIA [id number] [address] [place] [address] [place] MCV (RBC) [Entitic vol] 98.2 fL Normal 80.0-100.0 [facility] Comment on above: Order Comment: Speci men Type: BLOOD SPECIMEN Ordering Facility: [facility] Address: [address] [place] [address] Performed By: #### 2 157-6, 59632-2 #### [facility] CLIA [id number] [address] [place] [address] [place] Monocytes (Bld) [#/Vol] 0.43 10*3/uL Normal <0.87 [facility] Comment on above: Order Comment: Speci men Type: BLOOD SPECIMEN Ordering Facility: [facility] Address: [address] [place] [address] Performed By: #### 2 157-6, 83159-7 #### [facility] CLIA [id number] [address] [place] [address] [place] Monocytes/100 WBC (Bld) 9.3 % Normal [facility] Comment on above: Order Comment: Speci men Type: BLOOD SPECIMEN Ordering Facility: [facility] Address: [address] [place] [address] Performed By: #### 2 157-6, 59648-1 #### [facility] CLIA [id number] [address] [place] [address] [place] Neutrophils (Bld) [#/Vol] 2.08 10*3/uL Normal 1.45-7.50 [facility] Comment on above: Order Comment: Speci men Type: BLOOD SPECIMEN Ordering Facility: [facility] Address: [address] [place] [address] Performed By: #### 2 157-6, 89801-6 #### [facility] CLIA [id number] [address] [place] [address] [place] Neutrophils/100 WBC (Bld) 44.9 % Normal [facility] Comment on above: Order Comment: Speci men Type: BLOOD SPECIMEN Ordering Facility: [facility] Address: [address] [place] [address] Performed By: #### 2 157-6, 33655-8 #### [facility] CLIA [id number] [address] [place] [address] [place] Nucleated RBC (Bld) [#/Vol] 10*3/uL Normal <0.01 [facility] Comment on above: Order Comment: Speci men Type: BLOOD SPECIMEN Ordering Facility: [facility] Address: [address] [place] [address] Performed By: #### 2 157-6, 21476-6 #### [facility] CLIA [id number] [address] [place] [address] [place] Nucleated RBC/100 WBC (Bld) [Ratio] 0.0 /100 WBC Normal [facility] Comment on above: Order Comment: Speci men Type: BLOOD SPECIMEN Ordering Facility: [facility] Address: [address] [place] [address] Performed By: #### 2 157-6, 27142-3 #### [facility] CLIA [id number] [address] [place] [address] [place] Platelet mean volume (Bld) [Entitic vol] 10.4 fL Normal 9.0-12.7 [facility] Comment on above: Order Comment: Speci men Type: BLOOD SPECIMEN Ordering Facility: [facility] Address: [address] [place] [address] Performed By: #### 2 157-6, 28653-4 #### [facility] CLIA [id number] [address] [place] [address] [place] Platelets (Bld) [#/Vol] 285 10*3/uL Normal 150-400 [facility] Comment on above: Order Comment: Speci men Type: BLOOD SPECIMEN Ordering Facility: [facility] Address: [address] [place] [address] Performed By: #### 2 157-6, 96083-8 #### [facility] CLIA [id number] [address] [place] [address] [place] RBC (Bld) [#/Vol] 4.51 10*6/uL Normal 3.90-5.20 [facility] Comment on above: Order Comment: Speci men Type: BLOOD SPECIMEN Ordering Facility: [facility] Address: [address] [place] [address] Performed By: #### 2 157-6, 41148-3 #### [facility] CLIA [id number] [address] [place] [address] [place] WBC (Bld) [#/Vol] 4.63 10*3/uL Normal 3.70-11.00 [facility] Comment on above: Order Comment: Speci men Type: BLOOD SPECIMEN Ordering Facility: [facility] Address: [address] [place] [address] Performed By: #### 2 157-6, 51357-6 #### [facility] CLIA [id number] [address] [place] [address] [place] CK SerPl-cCncon 01-06-2024 CK [Catalytic activity/Vol] 119 U/L Normal 42-196 [facility] Comment on above: Order Comment: Speci men Type: BLOOD SPECIMEN Ordering Facility: [facility] Address: [address] [place] [address] Performed By: #### 2 157-6, 15242-1 #### [facility] CLIA [id number] [address] [place] [address] [place] CNOVon 01-06-2024 CNOV Office Visit (BEKAH ) -------- STACIE DAVIDSON ([id number]) 1970 F Date Time Provider Department 01/06/24 9:30 AM TIM [facility] During your visit today, we recorded the following information about you: Pulse Blood pressure Weight Height 85/minute 130/74 75 kg 1.549 m Tim Plaza MD 01/06/2024 11:17 AM Signed [facility] Date of Service: 01/06/2024 Patient: Stacie Davidson Medical Record: [id number] Primary Care Physician: Marry Schroeder CNP, 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 Referring Provider: Marry Schroeder CNP ([facility]) [facility] [address] [facility] [address] Last Rheumatology visit: None at [facility] Chief complaint: Consult (Pos alondra test. ), [...] traZODone (DESYREL) (more content not included)... Normal [facility] CREATINE KINASE/CKon 024 CK [Catalytic activity/Vol] 119 U/L 42 - 196 U/L [facility] CRP SerPl-mCncon 01-06-2024 CRP [Mass/Vol] mg/L Normal <0.9 [facility] Comment on above: Order Comment: Speci men Type: BLOOD SPECIMEN Ordering Facility: [facility] Address: [address] [place] [address] [place], [place] [address] Performed By: #### 2 157-6, 87487-6 #### [facility] CLIA [id number] [address] [place] [address] [place] Centromere Ab IF Ql (S)on Centromere Ab Qn (S) <0.2 Normal <1.0 [facility] Comment on above: Order Comment: Speci men Type: BLOOD SPECIMENOrdering Facility: [facility] Address: [address] [place] [address] Result Comment: Anti -centromere antibody is used as in aid in diagnosis of systemic sclerosis. Clinical correlation is required. Test Methodology: Multiplex flow immunoassay. Performed By: #### 1 7791-5, 35636-7, 09165-5, 49844-9, 30006-0, 06608-8, 10739-7, 97041-6 ####[facility] [id number] [address] [place] CENTROMERE AB QUAL Negative Normal Negative [facility] Comment on above: Order Comment: Speci men Type: BLOOD SPECIMENOrdering Facility: [facility] Address: [address] [place] [address] Performed By: #### 1 7791-5, 45660-1, 02483-3, 20009-0, 68470-9, 81208-9, 73155-9, 79058-0 ####[facility] [id number] [place] [address] [place] Chromatin Ab Qnon 01-06-2024 CHROMATIN AB QUAL Negative Normal Negative [facility] Comment on above: Order Comment: Speci men Type: BLOOD SPECIMENOrdering Facility: [facility] Address: [address] [place] [address] Performed By: #### 1 7791-5, 45536-8, 78621-2, 46657-2, 78553-0, 95095-4, 06943-2, 98946-0 ####[facility] [id number] [address] [place] Chromatin Ab SerPl-aCncon Chromatin Ab Qn <0.2 Normal <1.0 [facility] Comment on above: Order Comment: Speci men Type: BLOOD SPECIMENOrdering Facility: [facility] Address: [address] [place] [address] Result Comment: Test Methodology: Multiplex flow immunoassay. Performed By: #### 1 7791-5, 33974-8, 02841-4, 89749-0, 71810-5, 08667-4, 97663-4, 49870-9 ####[facility] [id number] [address] [facility] Comprehensive metabolic 2000 panelon 01-06-2024 Albumin [Mass/Vol] 4.6 g/dL 3.9 - 4.9 g/dL [facility] ALP [Catalytic activity/Vol] 77 U/L 34 - 123 U/L [facility] ALT [Catalytic activity/Vol] 22 U/L 7 - 38 U/L [facility] Anion gap [Moles/Vol] 15 mmol/L 9 - 18 mmol/L [facility] AST [Catalytic activity/Vol] 21 U/L 13 - 35 U/L [facility] Bilirubin [Mass/Vol] 0.3 mg/dL 0.2 - 1 .3 mg/dL [facility] Calcium [Mass/Vol] 9.8 mg/dL 8.5 - 10. 2 mg/dL [facility] Chloride [Moles/Vol] 100 mmol/L 97 - 10 5 mmol/L [facility] CO2 [Moles/Vol] 25 mmol/L 22 - 30 mmol/L [facility] Creatinine [Mass/Vol] 0.75 mg/dL 0.58 - 0.96 mg/dL [facility] GFR/1.73 sq M.predicted among non-blacks MDRD (S/P/Bld) [Vol rate/Area] 95 mL/min/{1.73_m2} - PINF [facility] Comment on above: Estimated Glomerular Filtration [...] [Mass/Vol] 92 mg/dL 74 - 99 mg/dL [facility] Comment on above: The [place] Diabete [employer] Association (ADA) provides guidance for [...] Standards of Medical Care in Diabetes 2016, [place] [employer]. Diabetes Care. 2016.39(Suppl 1). Potassium [Moles/Vol] 4.0 mmol/L 3.7 - 5.1 mmol/L [facility] Protein [Mass/Vol] 7.7 g/dL 6.3 - 8.0 g/dL [facility] Sodium [Moles/Vol] 140 mmol/L 136 - 144 mmol/L [facility] Urea nitrogen [Mass/Vol] 13 mg/dL 7 - 21 mg/dL [facility] Albumin [Mass/Vol] 4.6 g/dL Normal 3.9-4.9 [facility] Comment on above: Order Comment: Donte davis Type: BLOOD SPECIMEN Ordering Facility: [facility] Address: [address] [place] [address] Performed By: #### 2 157-6, 63441-1 #### [facility] CLIA [id number] [address] [place] [address] [place] ALP [Catalytic activity/Vol] 77 U/L Normal 34-123 [facility] Comment on above: Order Comment: Donte davis Type: BLOOD SPECIMEN Ordering Facility: [facility] Address: [address] [place] [address] Performed By: #### 2 157-6, 18029-1 #### [facility] CLIA [id number] [address] [place] [address] [place] ALT [Catalytic activity/Vol] 22 U/L Normal 7-38 [facility] Comment on above: Order Comment: Speci men Type: BLOOD SPECIMEN Ordering Facility: [facility] Address: [address] [place] [address] Performed By: #### 2 157-6, 79656-0 #### [facility] CLIA [id number] [address] [place] [address] [place] Anion gap [Moles/Vol] 15 mmol/L Normal 9-18 [facility] Comment on above: Order Comment: Speci men Type: BLOOD SPECIMEN Ordering Facility: [facility] Address: [address] [place] [address] Performed By: #### 2 157-6, 60825-3 #### [facility] CLIA [id number] [address] [place] [address] [place] AST [Catalytic activity/Vol] 21 U/L Normal 13-35 [facility] Comment on above: Order Comment: Speci men Type: BLOOD SPECIMEN Ordering Facility: [facility] Address: [address] [place] [address] Performed By: #### 2 157-6, 46369-3 #### [facility] CLIA [id number] [address] [place] [address] [place] Bilirubin [Mass/Vol] 0.3 mg/dL Normal 0.2-1.3 [facility] Comment on above: Order Comment: Speci men Type: BLOOD SPECIMEN Ordering Facility: [facility] Address: [address] [place] [address] Performed By: #### 2 157-6, 97901-1 #### [facility] CLIA [id number] [address] [place] [address] [place] Calcium [Mass/Vol] 9.8 mg/dL Normal 8.5-10.2 [facility] Comment on above: Order Comment: Speci men Type: BLOOD SPECIMEN Ordering Facility: [facility] Address: [address] [place] [address] Performed By: #### 2 157-6, 24824-4 #### [facility] CLIA [id number] [address] [place] [address] [place] Chloride [Moles/Vol] 100 mmol/L Normal 97-105 [facility] Comment on above: Order Comment: Speci men Type: BLOOD SPECIMEN Ordering Facility: [facility] Address: [address] [place] [address] Performed By: #### 2 157-6, 73080-2 #### [facility] CLIA [id number] [address] [place] [address] [place] CO2 [Moles/Vol] 25 mmol/L Normal 22-30 [facility] Comment on above: Order Comment: Speci men Type: BLOOD SPECIMEN Ordering Facility: [facility] Address: [address] [place] [address] Performed By: #### 2 157-6, 78102-0 #### [facility] CLIA [id number] [address] [place] [address] [place] Creatinine [Mass/Vol] 0.75 mg/dL Normal 0.58-0.96 [facility] Comment on above: Order Comment: Speci men Type: BLOOD SPECIMEN Ordering Facility: [facility] Address: [address] [place] [address] Performed By: #### 2 157-6, 86748-6 #### [facility] CLIA [id number] [address] [place] [address] [place] Creatinine and Glomerular filtration rate.predicted panel (S/P/Bld) 95 mL/min/1.73m??? Normal >=60 [facility] Comment on above: Order Comment: Speci men Type: BLOOD SPECIMEN Ordering Facility: [facility] Address: [address] [place] [address] Result Comment: Petra mated Glomerular Filtration Rate [...] reflect actual GFR. Performed By: #### 2 157-6, 24397-8 #### [facility] CLIA [id number] [address] [place] [address] [place] Glucose [Mass/Vol] 92 mg/dL Normal 74-99 [facility] Comment on above: Order Comment: Donte davis Type: BLOOD SPECIMEN Ordering Facility: [facility] Address: [address] [place] [address] Result Comment: The [place] Diabetes Association (ADA) provides guidance for cutoff [...] Standards of Medical Care in Diabetes 2016, [place] [employer]. Diabetes Care. 2016.39(Suppl 1). Performed By: #### 2 157-6, 91123-0 #### [facility] CLIA [id number] [address] [place] [address] [place] Potassium [Moles/Vol] 4.0 mmol/L Normal 3.7-5.1 [facility] Comment on above: Order Comment: Donte davis Type: BLOOD SPECIMEN Ordering Facility: [facility] Address: [address] [place] [address] Performed By: #### 2 157-6, 64867-3 #### [facility] CLIA [id number] [address] [place] [address] [place] Protein [Mass/Vol] 7.7 g/dL Normal 6.3-8.0 [facility] Comment on above: Order Comment: Speci men Type: BLOOD SPECIMEN Ordering Facility: [facility] Address: [address] [place] [address] Performed By: #### 2 157-6, 93420-9 #### [facility] CLIA [id number] [address] [place] [address] [place] Sodium [Moles/Vol] 140 mmol/L Normal 136-144 [facility] Comment on above: Order Comment: Speci men Type: BLOOD SPECIMEN Ordering Facility: [facility] Address: [address] [place] [address] Performed By: #### 2 157-6, 28454-3 #### [facility] CLIA [id number] [address] [place] [address] [place] Urea nitrogen [Mass/Vol] 13 mg/dL Normal 7-21 [facility] Comment on above: Order Comment: Speci men Type: BLOOD SPECIMEN Ordering Facility: [facility] Address: [address] [place] [address] Performed By: #### 2 157-6, 59530-7 #### [facility] CLIA [id number] [address] [place] [address] [place] Cyclic citrullinated peptide IgG Qnon 01-06-2024 CCP ANTIBODY IGG QUALITATIVE Negative Normal Negative [facility] Comment on above: Order Comment: Speci men Type: BLOOD SPECIMENOrdering Facility: [facility] Address: [address] [place] [address] Performed By: #### 3 3935-8 ####[facility] [id number] [place] [address] [place] DNA double strand Ab IA Qn ( S)on 01-06-2024 DNA ANTIBODY 514 IU/mL High <=200 [facility] Comment on above: Order Comment: Speci men Type: BLOOD SPECIMEN Ordering Facility: [facility] Address: [address] [place] [address] Result Comment: Nega tive: <200 IU/mL Equivocal: 201-300 IU/mL Moderate Positive: 301-800 IU/mL Strong Positive: >801 IU/mL Performed By: #### 2 157-6, 16436-9 #### [facility] CLIA [id number] [address] [place] [address] [place] DNA ANTIBODY QUALITATIVE INTERPRETATION Positive Abnormal Negative [facility] Comment on above: Order Comment: Speci men Type: BLOOD SPECIMEN Ordering Facility: [facility] Address: [address] [place] [address] Performed By: #### 2 157-6, 38320-4 #### [facility] CLIA [id number] [address] [place] [address] [place] DONALD Jo1 Ab Ser-aCncon 2023 Mariaa-1 extractable nuclear Ab Qn (S) <0.2 Normal <1.0 [facility] Comment on above: Order Comment: Speci men Type: BLOOD SPECIMENOrdering Facility: [facility] Address: [address] [place] [address] Performed By: #### 1 7791-5, 90578-2, 74990-0, 01303-0, 20749-0, 46925-7, 23053-5, 85857-2 ####[facility] [id number] [place] [address] [place] DONALD GYROSCOPIC INSTRUMENT MECHANIC Ab Ser-aCncon 2023 Ribonucleoprotein extractable nuclear Ab Qn (S) <0.2 Normal <1.0 [facility] Comment on above: Order Comment: Speci men Type: BLOOD SPECIMENOrdering Facility: [facility] Address: [address] [place] [address] Performed By: #### 1 7791-5, 72013-8, 40837-0, 62345-9, 02609-5, 95522-4, 18199-9, 17758-9 ####[facility] [id number] [place] [address] [place] DONALD SM IgG Ser-aCncon 2023 English extractable nuclear IgG Qn (S) <0.2 Normal <1.0 [facility] Comment on above: Order Comment: Speci men Type: BLOOD SPECIMENOrdering Facility: [facility] Address: [address] [place] [address] Performed By: #### 1 7791-5, 83432-9, 67423-4, 52663-3, 87268-4, 40352-0, 61679-1, 55503-0 ####[facility] [id number] [place] [address] [place] DONALD SS-A Ab Ser-aCncon 01-05 Sjogrens syndrome-A extractable nuclear Ab Qn (S) 0.3 AI Normal <1.0 [facility] Comment on above: Order Comment: Speci men Type: BLOOD SPECIMENOrdering Facility: [facility] Address: [address] [place] [address] Result Comment: Test Methodology: Multiplex flow immunoassay. Performed By: #### 1 7791-5, 26667-7, 13734-9, 16314-5, 69161-1, 81737-6, 32561-6, 90289-0 ####[facility] [id number] [place] [address] [place] DONALD SS-B Ab Ser-aCncon 01-05 Sjogrens syndrome-B extractable nuclear Ab Qn (S) <0.2 Normal <1.0 [facility] Comment on above: Order Comment: Speci men Type: BLOOD SPECIMENOrdering Facility: [facility] Address: [address] [place] [address] Result Comment: Anti -SSB (anti-La) antibody is used as an aid in diagnosis of a variety of systemic autoimmune diseases, especially for Sjogren's syndrome and systemic lupus erythematosus. Clinical correlation is required. Test Methodology: Multiplex flow immunoassay. Performed By: #### 1 7791-5, 60509-4, 92274-9, 55688-9, 79778-0, 99657-4, 62610-3, 28916-7 ####[facility] [id number] [place] [address] [place] ESR Westergren method (Bld) [Velocity]on 01-06-2024 ESR (Bld) [Velocity] 5 mm/h [facility] Interpretation and review of laboratory results Normal [facility] ESR (Bld) [Velocity] 5 mm/h Normal 0-20 [facility] Comment on above: Order Comment: Speci men Type: BLOOD SPECIMEN Ordering Facility: [facility] Address: [address] [place] [address] Performed By: #### 2 157-6, 28910-8 #### [facility] CLIA [id number] [address] [place] [address] [place] Eosinophils/100 WBC Auto (Bl d)on 01-06-2024 Eosinophils/100 WBC (Bld) 4.1 % [facility] Erythrocyte distribution wid th Auto (RBC) [Ratio]on 01-06-2024 Erythrocyte distribution width (RBC) [Ratio] 12.2 % 11.-15.0 [facility] Hematocrit Auto (Bld) [Volum e fraction]on 01-06-2024 Hematocrit (Bld) [Volume fraction] 44.3 % 36.0-46.0 [facility] Hemoglobin [Mass/volume] in Bloodon 01-06-2024 Hemoglobin (Bld) [Mass/Vol] 14.1 g/dL 11.5-15.5 [facility] Mariaa-1 extractable nuclear Ab Qn (S)on 01-06-2024 MARIAA 1 ANTIBODY QUAL Negative Normal Negative [facility] Comment on above: Order Comment: Speci men Type: BLOOD SPECIMENOrdering Facility: [facility] Address: [address] [facility] [address] Result Comment: Anti -MARIAA-1 antibody is used as an aid in diagnosis of polymyositis and dermatomyositis especially with pulmonary involvement. A negative result cannot rule out polymyositis or dermatomyositis. Clinical correlation is required. Test Methodology: Multiplex flow immunoassay. Performed By: #### 1 7791-5, 44605-6, 62437-7, 55286-6, 98923-9, 45823-1, 13854-2, 36860-7 ####[facility] [id number] [place] [address] [place] Laboratory - Chemistry and C hemistry - challengeon 01-06-2024 Albumin [Mass/Vol] 4.6 g/dL 3.9-4.9 [facility] ALP [Catalytic activity/Vol] 77 U/L 34-123 [facility] ALT [Catalytic activity/Vol] 22 U/L 7-38 [facility] AST [Catalytic activity/Vol] 21 U/L 13-35 [facility] Bilirubin [Mass/Vol] 0.3 mg/dL 0.2-1.3 [facility] Calcium [Mass/Vol] 9.8 mg/dL 8.5-10.2 [facility] Chloride [Moles/Vol] 100 mmol/L 97-105 [facility] CK [Catalytic activity/Vol] 119 U/L 42-196 [facility] CO2 [Moles/Vol] 25 mmol/L 22-30 [facility] Creatinine [Mass/Vol] 0.75 mg/dL 0.58-0.96 [facility] Glucose [Mass/Vol] 92 mg/dL 74-99 [facility] Comment on above: The [place] Diabete [place] Association (ADA) provides guidance for [...] Standards of Medical Care in Diabetes 2016, [place] [employer]. Diabetes Care. 2016.39(Suppl 1). Potassium [Moles/Vol] 4.0 mmol/L 3.7-5.1 [facility] Protein [Mass/Vol] 0.00 g/dL <=0.00 [facility] Sodium [Moles/Vol] 140 mmol/L 136-144 [facility] Urea nitrogen [Mass/Vol] 13 mg/dL 7-21 [facility] Laboratory - Hematology and Cell countson 01-06-2024 Eosinophils (Bld) [#/Vol] 0.19 10*3/uL <0.46 [facility] ESR (Bld) [Velocity] 5 mm/h 0-20 [facility] Immature granulocytes/100 WBC (Bld) 0.2 % [facility] Leukocytes [#/volume] correc gudelia for nucleated erythrocytes in Blood by Automated counon 01-06-2024 WBC corrected for nucl RBC Auto (Bld) [#/Vol] 4.63 k/uL 3.70-11.00 [facility] Lymphocytes Auto (Bld) [#/Vo l]on 01-06-2024 Lymphocytes (Bld) [#/Vol] 1.86 10*3/uL 1.00-4.00 [facility] Lymphocytes/100 WBC Auto (Bl d)on 01-06-2024 Lymphocytes/100 WBC (Bld) 40.2 % [facility] MCH Auto (RBC) [Entitic mass ]on 01-06-2024 MCH (RBC) [Entitic mass] 31.3 pg 26.0-34.0 [facility] MCHC Auto (RBC) [Mass/Vol]on 01-06-2024 MCHC (RBC) [Mass/Vol] 31.8 g/dL 30.5-36.0 [facility] MCV Auto (RBC) [Entitic vol] on 01-06-2024 MCV (RBC) [Entitic vol] 98.2 fL 80.0-100.0 [facility] Monocytes Auto (Bld) [#/Vol] on 01-06-2024 Monocytes (Bld) [#/Vol] 0.43 10*3/uL <0.87 [facility] Monocytes/100 WBC Auto (Bld) on 01-06-2024 Monocytes/100 WBC (Bld) 9.3 % [facility] Neutrophils Auto (Bld) [#/Vo l]on 01-06-2024 Neutrophils (Bld) [#/Vol] 2.08 10*3/uL 1.45-7.50 [facility] Neutrophils/100 WBC Auto (Bl d)on 01-06-2024 Neutrophils/100 WBC (Bld) 44.9 % [facility] No Panel Informationon 01-05 Interpretation and review of laboratory results Normal [facility] Interpretation and review of laboratory results Normal [facility] Anti-Centromere Ab Interpretation Negative Negative [facility] Anti-Double Strand DNA Antibody 514 [IU]/mL High <=200 [facility] Comment on above: Negative: <200 IU/mL Equivocal: 201-300 IU/mLModerate Positive: 301-800 IU/mLStrong Positive: >801 IU/mL Anti-ds DNA IgG Ab (Crithidia) Positive Negative [facility] Anti-ds DNA IgG Ab (Crithidia) Negative Negative [facility] Comment on above: Crithidia luciliae a ssay is used as an aid in diagnosis of systemic lupus erythematosus (SLE). A negative result cannot rule out SLE. Low positive titers may be seen with other systemic autoimmune diseases. Clinical correlation is required. Anti-English Antibody Interpretation Negative Negative [facility] Comment on above: Anti-Sm (English) anti body is used as an aid in diagnosis of systemic lupus erythematosus and its presence is associated with renal disease. A negative result cannot rule out systemic lupus erythematosus. Clinical correlation is required. Test Methodology: Multiplex flow immunoassay. C-Reactive Protein, Quantitative <0.3 mg/dL <0.9 [facility] Chromatin Qualitative Negative Negative [facility] Cyclic Citrullinated Peptide IgG Ab <15 Units <20 [facility] Cyclic Citrullinated Peptide Interp Negative Negative [facility] Estimated GFR (CKD-EPI) 95 mL/min/1.73m??? >=60 [facility] [place] Comment on above: Estimated Glomerular Filtration Rate [...] Immature Granulocyte # (Auto) <0.03 k/uL <0.10 [facility] [place] MARIAA-1 Antibody Interpretation Negative Negative [facility] [place] Comment on above: Anti-MARIAA-1 antibody i s used as an aid in diagnosis of polymyositis and dermatomyositis especially with pulmonary involvement. A negative result cannot rule out polymyositis or dermatomyositis. Clinical correlation is required.Test Methodology: Multiplex flow immunoassay. Miscellaneous Test 6 See comment [facility] Comment on above: Not Applicable. Miscellaneous Test Comment Reviewed by Dr. Shaheen Wilburn MD [facility] [place] Protein Electrophoresis Note No definitive M protein is identified on protein electrophoresis. No definitive M protein is identified on protein electrophor esis. [facility] [place] GYROSCOPIC INSTRUMENT MECHANIC Antibody <0.2 AI <1.0 [facility] [place] GYROSCOPIC INSTRUMENT MECHANIC Antibody Interpretation Negative Negative [facility] Scl-70 (Scleroderma) Antibody <0.2 AI <1.0 [facility] [place] Comment on above: Scl-70/Scleroderma a ntibody test is used as an aid in diagnosis of systemic sclerosis especially the diffuse cutaneous form. A negative result cannot rule out systemic sclerosis. The final interpretation should consider clinical picture and other test results such as anti-centromere antibody. Test Methodology: Multiplex flow immunoassay. Scl-70 Antibody Negative Negative [facility] [place] SS-A Antibody Interpretation Negative Negative [facility] SS-B Antibody Interpretation Negative Negative [facility] [place] Radiology Study observation (narrative) [facility] Nuclear membrane pores nucle ar Ab pattern [Titer] in Serum by Immunofluorescenceon 01-06-2024 Nuclear membrane pores nuclear Ab pattern IF (S) [Titer] Nuclear homogeneous [facility] [place] Nucleated RBC Auto (Bld) [#/ Vol]on 01-06-2024 Nucleated RBC (Bld) [#/Vol] 10*3/uL <0.01 [facility] [place] Nucleated erythrocytes [Pres ence] in Blood by Automated counton 01-06-2024 Nucleated RBC Auto Ql (Bld) 0.0 /100{WBC} [facility] [place] PROTEIN ELECTROPHORESIS SERU M (P)on 01-06-2024 Albumin [Mass/Vol] 4.66 g/dL Normal 3.43-5.41 [facility] Comment on above: Order Comment: Speci men Type: BLOOD SPECIMEN Ordering Facility: [facility] Address: [address] [place] [address] Performed By: #### L [id number] #### [facility] CLIA [id number] [address] [place] [address] [place] Alpha 1 globulin Elph [Mass/Vol] 0.24 g/dL Normal 0.18-0.43 [facility] Comment on above: Order Comment: Speci men Type: BLOOD SPECIMEN Ordering Facility: [facility] Address: [address] [place] [address] Performed By: #### L [id number] #### [facility] CLIA [id number] [address] [place] [address] [place] Alpha 2 globulin Elph [Mass/Vol] 0.61 g/dL Normal 0.42-0.98 [facility] Comment on above: Order Comment: Speci men Type: BLOOD SPECIMEN Ordering Facility: [facility] Address: [address] [place] [address] Performed By: #### L [id number] #### [facility] CLIA [id number] [address] [place] [address] [place] Beta globulin Elph [Mass/Vol] 0.95 g/dL Normal 0.61-1.17 [facility] Comment on above: Order Comment: Speci men Type: BLOOD SPECIMEN Ordering Facility: [facility] Address: [address] [place] [address] Performed By: #### L [id number] #### [facility] CLIA [id number] [address] [place] [address] [place] Gamma globulin Elph [Mass/Vol] 0.94 g/dL Normal 0.53-1.51 [facility] Comment on above: Order Comment: Speci men Type: BLOOD SPECIMEN Ordering Facility: [facility] Address: [address] [place] [address] Performed By: #### L [id number] #### [facility] CLIA [id number] [address] [place] [address] [place] M-PROTEIN LOCATION Normal [facility] Comment on above: Order Comment: Speci men Type: BLOOD SPECIMEN Ordering Facility: [facility] Address: [address] [place] [address] Result Comment: Not Applicable. Performed By: #### L [id number] #### [facility] CLIA [id number] [address] [place] [address] [place] Protein Fractions [Interp] No definitive M protein is identified on protein electrophoresis. Normal No definitive M protein is identified on protein electrophor esis. [facility] Comment on above: Order Comment: Speci men Type: BLOOD SPECIMEN Ordering Facility: [facility] Address: [address] [place] [address] Performed By: #### L [id number] #### [facility] CLIA [id number] [address] [place] [address] [place] Protein.monoclonal Elph [Mass/Vol] 0.00 g/dL Normal <=0.00 [facility] Comment on above: Order Comment: Speci men Type: BLOOD SPECIMEN Ordering Facility: [facility] Address: [address] [place] [address] Performed By: #### L [id number] #### [facility] CLIA [id number] [address] [place] [address] [place] SPE STAFF REVIEW Reviewed by Dr. José Miguel Wilburn MD [facility] Comment on above: Order Comment: Speci men Type: BLOOD SPECIMEN Ordering Facility: [facility] Address: [address] [place] [address] Performed By: #### L [id number] #### [facility] CLIA [id number] [address] [facility] [place] [address] [place] Platelet mean volume Auto (B ld) [Entitic vol]on 01-06-2024 Platelet mean volume (Bld) [Entitic vol] 10.4 fL 9.0-12.7 [facility] [place] Platelets Auto (Bld) [#/Vol] on 01-06-2024 Platelets (Bld) [#/Vol] 285 10*3/uL 150-400 [facility] [place] Prot SerPl-mCncon 01-06-2024 Protein [Mass/Vol] 7.4 g/dL Normal 6.3-8.0 [facility] Comment on above: Order Comment: Speci men Type: BLOOD SPECIMENOrdering Facility: [facility] Address: [address] [place] [address] Performed By: #### 2 885-2 ####[facility] [id number] [facility] [place] [address] [place] Protein [Mass/volume] in Ser um or Plasmaon 01-06-2024 Protein [Mass/Vol] 7.7 g/dL 6.3-8.0 [facility] RBC Auto (Bld) [#/Vol]on RBC (Bld) [#/Vol] 4.51 10*6/uL 3.90-5.20 [facility] RHEUMATOID FACTORon 01-06-20 Rheumatoid factor Qn NINF [facility] Rheumatoid fact SerPl-aCncon 01-06-2024 Rheumatoid factor Qn [IU]/mL Normal <16 [facility] Comment on above: Order Comment: Speci men Type: BLOOD SPECIMEN Ordering Facility: [facility] Address: [address] [place] [address] Performed By: #### 2 157-6, 66953-8 #### [facility] CLIA [id number] [address] [place] [address] [place] Ribonucleoprotein extractabl e nuclear Ab Qn (S)on 01-06-2024 ANTI-GYROSCOPIC INSTRUMENT MECHANIC QUAL Negative Normal Negative [facility] Comment on above: Order Comment: Speci men Type: BLOOD SPECIMENOrdering Facility: [facility] Address: [address] [place] [address] Performed By: #### 1 7791-5, 75943-0, 86475-7, 32348-5, 41476-5, 83875-1, 80764-6, 73932-8 ####[facility] [id number] [place] [address] [place] RIBOSOMAL GYROSCOPIC INSTRUMENT MECHANIC QUAL Negative Normal Negative [facility] Comment on above: Order Comment: Speci men Type: BLOOD SPECIMENOrdering Facility: [facility] Address: [address] [place] [address] Result Comment: Anti -Ribosomal RNA (Ribosomal P) antibody is used as an aid in diagnosis of systemic autoimmune diseases especially systemic lupus erythematosus and mixed connective tissue disease. Cross-reactivity with Anti-english antibody is not uncommon. Clinical correlation is required. Test Methodology: Multiplex flow immunoassay. Performed By: #### 1 7791-5, 62069-5, 74857-2, 51432-0, 89292-9, 78347-2, 23293-3, 96458-2 ####[facility] [id number] [place] [id number] [place] Ribosomal P Ab [Units/volume ] in Serumon 01-06-2024 Ribosomal P Ab Qn (S) Negative Negative [facility] Comment on above: Anti-Ribosomal RNA ( Ribosomal P) antibody is used as an aid in diagnosis of systemic autoimmune diseases especially systemic lupus erythematosus and mixed connective tissue disease. Cross-reactivity with Anti-english antibody is not uncommon. Clinical correlation is required. Test Methodology: Multiplex flow immunoassay. SCL-70 extractable nuclear I gG IA Qn (S)on 01-06-2024 SCLERODERMA AB QUAL Negative Normal Negative [facility] Comment on above: Order Comment: Speci men Type: BLOOD SPECIMENOrdering Facility: [facility] Address: [address] [place] [address] Performed By: #### 1 7791-5, 45224-8, 97948-8, 90842-4, 75752-7, 51967-2, 84669-6, 94809-7 ####[facility] [id number] [place] [address] [place] SCLERODERMA IGG AB <0.2 Normal <1.0 [facility] Comment on above: Order Comment: Speci men Type: BLOOD SPECIMENOrdering Facility: [facility] Address: [address] [place] [address] Result Comment: Scl- 70/Scleroderma antibody test is used as an aid in diagnosis of systemic sclerosis especially the diffuse cutaneous form. A negative result cannot rule out systemic sclerosis. The final interpretation should consider clinical picture and other test results such as anti-centromere antibody. Test Methodology: Multiplex flow immunoassay. Performed By: #### 1 7791-5, 11118-6, 98345-5, 40914-0, 57007-5, 48929-1, 57308-3, 19217-0 ####[facility] [id number] [place] [address] [place] Serum Mariaa-1 extractable nucle ar antibody assay (units/volume)on 01-06-2024 Mariaa-1 extractable nuclear Ab Qn (S) <0.2 AI <1.0 [facility] [place] Serum Sjogrens syndrome-A ex tractable nuclear antibody assay (units/volume)on 01-06-2024 Sjogrens syndrome-A extractable nuclear Ab Qn (S) 0.3 AI <1.0 [facility] [place] Comment on above: Test Methodology: Mu ltiplex flow immunoassay. Serum Sjogrens syndrome-B ex tractable nuclear antibody assay (units/volume)on 01-06-2024 Sjogrens syndrome-B extractable nuclear Ab Qn (S) <0.2 AI <1.0 [facility] [place] Comment on above: Anti-SSB (anti-La) a ntibody is used as an aid in diagnosis of a variety of systemic autoimmune diseases, especially for Sjogren's syndrome and systemic lupus erythematosus. Clinical correlation is required. Test Methodology: Multiplex flow immunoassay. Serum English extractable nucl ear antigen (DONALD) antibody assay (units/volume)on 01-06-2024 English extractable nuclear Ab Qn (S) <0.2 AI <1.0 [facility] [place] Serum centromere protein B a ntibody assay (units/volume)on 01-06-2024 Centromere protein B Ab Qn (S) <0.2 AI <1.0 [facility] [place] Comment on above: Anti-centromere anti body is used as in aid in diagnosis of systemic sclerosis. Clinical correlation is required. Test Methodology: Multiplex flow immunoassay. Serum nuclear antibody titer on 01-06-2024 Nuclear Ab (S) [Titer] Positive Abnormal Negative [facility] Comment on above: Anti-nuclear antibod y test [...] 1 globulin Elph [Mass/Vol] 0.24 g/dL 0.18-0.43 [facility] [place] Serum or plasma alpha 2 glob ulin measurement by electrophoresis (mass/volume)on 01-06-2024 Alpha 2 globulin Elph [Mass/Vol] 0.61 g/dL 0.42-0.98 [facility] Serum or plasma anion gap de terminationon 01-06-2024 Anion gap [Moles/Vol] 15 mmol/L 9-18 [facility] Serum or plasma beta globuli n measurement by electrophoresis (mass/volume)on 01-06-2024 Beta globulin Elph [Mass/Vol] 0.95 g/dL 0.61-1.17 [facility] Serum or plasma calcidiol me asurement (mass/volume)on 01-06-2024 25-hydroxyvitamin D3 [Mass/Vol] 27.4 ng/mL Low 31.0-80.0 [facility] [place] Comment on above: Classification of 25 [place] Vitamin D status: Deficiency/Insufficiency: < or = 30 ng/ml.Sufficiency/Optimal Levels: 31-80 ng/mLToxicity: > 100 ng/mL. Test performed by chemiluminescent immunoassay. Serum or plasma chromatin an tibody assay (units/volume)on 01-06-2024 Chromatin Ab Qn <0.2 AI <1.0 [facility] [place] Comment on above: Test Methodology: Mu ltiplex flow immunoassay. Serum or plasma complement C 3 measurement (mass/volume)on 01-06-2024 Complement C3 [Mass/Vol] 155 mg/dL 86-166 [facility] Serum or plasma complement C 4 measurement (mass/volume)on 01-06-2024 Complement C4 [Mass/Vol] 25 mg/dL 13-46 [facility] Serum or plasma gamma globul in measurement by electrophoresis (mass/volume)on 01-06-2024 Gamma globulin Elph [Mass/Vol] 0.94 g/dL 0.53-1.51 [facility] Serum or plasma rheumatoid f actor measurement (units/volume)on 01-06-2024 Rheumatoid factor Qn [IU]/mL <16 [facility] Sjogrens syndrome-A extracta ble nuclear Ab Qn (S)on 01-06-2024 SSA ANTIBODY QUAL Negative Normal Negative [facility] Comment on above: Order Comment: Speci men Type: BLOOD SPECIMENOrdering Facility: [facility] Address: [address] [place] [address] Performed By: #### 1 7791-5, 73324-6, 47535-9, 74969-4, 10473-1, 46454-2, 29985-0, 58614-0 ####[facility] [id number] [place] [address] [place] Sjogrens syndrome-B extracta ble nuclear Ab Qn (S)on 01-06-2024 SSB ANTIBODY QUAL Negative Normal Negative [facility] Comment on above: Order Comment: Speci men Type: BLOOD SPECIMENOrdering Facility: [facility] Address: [address] [place] [address] Performed By: #### 1 7791-5, 17309-4, 01525-1, 17865-8, 96734-6, 48792-5, 09424-3, 29960-0 ####[facility] [id number] [address] [place] English extractable nuclear Ig G Qn (S)on 01-06-2024 SM ANTIBODY QUAL Negative Normal Negative [facility] Comment on above: Order Comment: Speci ryan Type: BLOOD SPECIMENOrdering Facility: [facility] Address: [address] [place] [address] Result Comment: Anti -Sm (English) antibody is used as an aid in diagnosis of systemic lupus erythematosus and its presence is associated with renal disease. A negative result cannot rule out systemic lupus erythematosus. Clinical correlation is required. Test Methodology: Multiplex flow immunoassay. Performed By: #### 1 7791-5, 45584-1, 92861-5, 14396-6, 54398-4, 27231-9, 38525-1, 26015-8 ####[facility] [id number] [place] [address] [place] UrinalysisOrdered By: Faby Lawson on 01-06-2024 Urinalysis complete panel (U) [facility] Urinalysis complete panel (U )on 01-06-2024 Bacteria LM.HPF (Urine sed) [#/Area] Negative Negative /HPF [facility] Bilirubin Ql (U) Negative Negative [facility] Clarity (Unsp spec) Clear Clear [facility] Color (U) Yellow Yellow [facility] Epithelial cells LM.HPF (Urine sed) [#/Area] None Seen /HPF [facility] Glucose Test strip (U) [Mass/Vol] Negative Negative [facility] Hemoglobin Ql (U) Negative Negative [facility] Hyaline casts (Urine sed) [#/Area] 0 /[LPF] 0 /LPF [facility] Interpretation and review of laboratory results Abnormal [facility] Ketones Ql (U) Negative Negative [facility] Leukocyte esterase Test strip Ql (U) 1+ Abnormal Negative [facility] Nitrite Ql (U) Negative Negative [facility] pH (U) 7.0 [pH] NINF - 8.5 [facility] Protein (U) [Mass/Vol] Negative Negative [facility] RBC LM.HPF (Urine sed) [#/Area] 0-2 /HPF 0-2 /HPF [facility] Specific gravity (U) [Rel density] 1.016 1.005 - 1.030 [facility] Urobilinogen Ql (U) 0.2 EU/dL 0.2-1.0 EU/dL [facility] WBC LM.HPF (Urine sed) [#/Area] 0-5 /HPF 0-5 /HPF [facility] This test was develo ped and its performance characteristics determined by [facility]'s [facility] ([facility]). It has not been cleared or approved by the FDA. [facility] is regulated under CLIA as qualified to perform high-complexity testing. This test is used for clinical purposes. It should not be regarded as investigational or for research. [facility] Bacteria LM.HPF (Urine sed) [#/Area] Negative Normal Negative [facility] Comment on above: Order Comment: Speci men Type: BLOOD SPECIMEN Ordering Facility: [facility] Address: [address] [place] [address] Performed By: #### 2 157-6, 44806-6 #### [facility] CLIA [id number] [address] [place] [address] [place] Bilirubin Ql (U) Negative Normal Negative [facility] Comment on above: Order Comment: Speci men Type: BLOOD SPECIMEN Ordering Facility: [facility] Address: [address] [place] [address] Performed By: #### 2 157-6, 37821-7 #### [facility] CLIA [id number] [address] [place] [address] [place] Clarity (Unsp spec) Clear Normal Clear [facility] Comment on above: Order Comment: Speci men Type: BLOOD SPECIMEN Ordering Facility: [facility] Address: [address] [place] [address] Performed By: #### 2 157-6, 48758-2 #### [facility] CLIA [id number] [address] [place] [address] [place] Color (U) Yellow Normal Yellow [facility] Comment on above: Order Comment: Speci men Type: BLOOD SPECIMEN Ordering Facility: [facility] Address: [address] [place] [address] Performed By: #### 2 157-6, 07161-9 #### [facility] CLIA [id number] [address] [place] [address] [place] Epithelial cells LM.HPF (Urine sed) [#/Area] None Seen Normal [facility] Comment on above: Order Comment: Speci men Type: BLOOD SPECIMEN Ordering Facility: [facility] Address: [address] [place] [address] Performed By: #### 2 157-6, 37361-2 #### [facility] CLIA [id number] [address] [place] [address] [place] Glucose Test strip (U) [Mass/Vol] Negative Normal Negative [facility] Comment on above: Order Comment: Speci men Type: BLOOD SPECIMEN Ordering Facility: [facility] Address: [address] [place] [address] Performed By: #### 2 157-6, 60420-2 #### [facility] CLIA [id number] [address] [place] [address] [place] Hemoglobin Ql (U) Negative Normal Negative [facility] Comment on above: Order Comment: Speci men Type: BLOOD SPECIMEN Ordering Facility: [facility] Address: [address] [place] [address] Performed By: #### 2 157-6, 35780-1 #### [facility] CLIA [id number] [address] [place] [address] [place] Hyaline casts (Urine sed) [#/Area] 0 /[LPF] Normal 0 /LPF [facility] Comment on above: Order Comment: Speci men Type: BLOOD SPECIMEN Ordering Facility: [facility] Address: [address] [place] [address] Performed By: #### 2 157-6, 86822-0 #### [facility] CLIA [id number] [address] [place] [address] [place] Ketones Ql (U) Negative Normal Negative [facility] Comment on above: Order Comment: Speci men Type: BLOOD SPECIMEN Ordering Facility: [facility] Address: [address] [place] [address] Performed By: #### 2 157-6, 01017-7 #### [facility] CLIA [id number] [address] [place] [address] [place] Leukocyte esterase Test strip Ql (U) 1+ Abnormal Negative [facility] Comment on above: Order Comment: Speci men Type: BLOOD SPECIMEN Ordering Facility: [facility] Address: [address] [place] [address] Performed By: #### 2 157-6, 83189-2 #### [facility] CLIA [id number] [address] [place] [address] [place] Nitrite Ql (U) Negative Normal Negative [facility] Comment on above: Order Comment: Speci men Type: BLOOD SPECIMEN Ordering Facility: [facility] Address: [address] [place] [address] Performed By: #### 2 157-6, 01664-3 #### [facility] CLIA [id number] [address] [place] [address] [place] pH (U) 7.0 [pH] Normal <8.5 [facility] Comment on above: Order Comment: Speci men Type: BLOOD SPECIMEN Ordering Facility: [facility] Address: [address] [place] [address] Performed By: #### 2 157-6, 88893-5 #### [facility] CLIA [id number] [address] [place] [address] [place] Protein (U) [Mass/Vol] Negative Normal Negative [facility] Comment on above: Order Comment: Speci men Type: BLOOD SPECIMEN Ordering Facility: [facility] Address: [address] [place] [address] Performed By: #### 2 157-6, 55914-8 #### [facility] CLIA [id number] [address] [place] [address] [place] RBC LM.HPF (Urine sed) [#/Area] 0-2 /HPF Normal 0-2 /HPF [facility] Comment on above: Order Comment: Speci men Type: BLOOD SPECIMEN Ordering Facility: [facility] Address: [address] [place] [address] Performed By: #### 2 157-6, 65379-8 #### [facility] CLIA [id number] [address] [place] [address] [place] Specific gravity (U) [Rel density] 1.016 Normal 1.005-1.030 [facility] Comment on above: Order Comment: Speci men Type: BLOOD SPECIMEN Ordering Facility: [facility] Address: [address] [place] [address] Performed By: #### 2 157-6, 60616-8 #### [facility] CLIA [id number] [address] [place] [address] [place] Urobilinogen Ql (U) 0.2 EU/dL Normal 0.2-1.0 EU/dL [facility] Comment on above: Order Comment: Speci men Type: BLOOD SPECIMEN Ordering Facility: [facility] Address: [address] [place] [address] Performed By: #### 2 157-6, 15276-9 #### [facility] CLIA [id number] [address] [place] [address] [place] WBC LM.HPF (Urine sed) [#/Area] 0-5 /HPF Normal 0-5 /HPF [facility] Comment on above: Order Comment: Speci men Type: BLOOD SPECIMEN Ordering Facility: [facility] Address: [address] [place] [address] Performed By: #### 2 157-6, 12990-9 #### [facility] CLIA [id number] [address] [place] [address] [place] XR CERVICAL 4V [...] spondylosis. 2. Cervical spine degenerative facet arthrosis. Loading Inspector: CLARY Transcribe Date/Time: Jan 06 2024 12:16P Dictated by : BARBARA KIRBY MD This examination was interpreted and the report reviewed and electronically signed by: BARBARA KIRBY MD on Jan 06 2024 12:17PM EST [id number] Normal [facility] XR Cervical spine AP and Lat eral and obliqueon 01-06-2024 IMPRESSION: 1. Mild cervical spondylosis. 2. Cervical spine degenerative facet arthrosis. Loading Inspector: CLARY Transcribe Date/Time: Jan 06 2024 12:16P Dictated by : BARBARA KIRBY MD This examination was interpreted and the report reviewed and electronically signed by: BARBARA KIRBY MD on Jan 06 2024 12:17PM [facility] DIVISION OF RADIOLOGY * * *Final Report* [...] RIGHT at C4-C5. DIVISION OF RADIOLOGY Provider, [facility] Luiz [facility] - 01/06/2024 * * *Final Report* * [...] spondylosis. 2. Cervical spine degenerative facet arthrosis. Loading Inspector: [facility] Transcribe Date/Time: Jan 06 2024 12:16P Dictated by : BARBARA KIRBY MD This examination was interpreted and the report reviewed and electronically signed by: BARBARA KIRBY MD on Jan 06 2024 12:17PM [facility] XR FOOT 3V AP/LAT/OBL BILon 01-06-2024 XR [...] demonstrated. IMPRESSION: 1. No significant arthropathy demonstrated. Loading Inspector: CLARY Transcribe Date/Time: Jan 06 2024 12:15P Dictated by : BARBARA KIRBY MD This examination was interpreted and the report reviewed and electronically signed by: BARBARA KIRBY MD on Jan 06 2024 12:16PM EST [id number] Normal [facility] XR Foot - bilateral AP and L ateral and obliqueon 01-06-2024 IMPRESSION: 1. No significant arthropathy demonstrated. Loading Inspector: CLARY Transcribe Date/Time: Jan 06 2024 12:15P Dictated [...] erosions are demonstrated. DIVISION OF RADIOLOGY Provider, [facility] - 01/06/2024 * * *Final Report* [...] IMPRESSION IMPRESSION: 1. No significant arthropathy demonstrated. Loading Inspector: CLARY Transcribe Date/Time: Jan 06 2024 12:15P Dictated by : BARBARA KIRBY MD This examination was interpreted and the report reviewed and electronically signed by: BARBARA KIRBY MD on Jan 06 2024 12:16PM EST [facility] XR HAND 3V PA/LAT/OBL BILon 01-06-2024 XR [...] 1. Mild degenerative arthrosis of both hands. Loading Inspector: [facility] Transcribe Date/Time: Jan 06 2024 12:18P Dictated by : BARBARA KIRBY MD This examination was interpreted and the report reviewed and electronically signed by: BARBARA KIRBY MD on Jan 06 2024 12:19PM EST [id number] Normal [facility] XR Hand - bilateral PA and L ateral and Obliqueon 01-06-2024 IMPRESSION: 1. Mild degenerative arthrosis of both hands. Loading Inspector: [facility] Transcribe Date/Time: Jan 06 2024 12:18P Dictated by : BARBARA KIRBY MD This examination was interpreted and the report reviewed and electronically signed by: BARBARA KIRBY MD on Jan 06 2024 12:19PM [facility] DIVISION OF RADIOLOGY * * *Final Report* [...] erosions are demonstrated. DIVISION OF RADIOLOGY Provider, [facility] - 01/06/2024 * * *Final Report* [...] 1. Mild degenerative arthrosis of both hands. Loading Inspector: CLARY Transcribe Date/Time: Jan 06 2024 12:18P Dictated by : BARBARA KIRBY MD This examination was interpreted and the report reviewed and electronically signed by: BARBARA KIRBY MD on Jan 06 2024 12:19PM [facility] XR KNEE 4V AP/PA/LAT/MERCH B [facility] 01-06-2024 XR KNEE 4V AP/PA/LAT/MERCH MARY * [...] IMPRESSION: 1. No significant knee arthropathy demonstrated. Loading Inspector: PSC Transcribe Date/Time: Jan 06 2024 12:19P Dictated by : BARBARA KIRBY MD This examination was interpreted and the report reviewed and electronically signed by: BARBARA KIRBY MD on Jan 06 2024 12:19PM EST [id number] Normal [facility] XR Knee - bilateral 4 Viewso n 01-06-2024 IMPRESSION: 1. No significant knee arthropathy demonstrated. Loading Inspector: [facility] Transcribe Date/Time: Jan 06 2024 12:19P Dictated by : BARBARA KIRBY MD This examination was interpreted and the report reviewed and electronically signed by: BARBARA KIRBY MD on Jan 06 2024 12:19PM EST DIVISION OF RADIOLOGY * * *Final Report* * * DATE OF EXAM: Jan 06 2024 11:04AM LNX [id number] - XR KNEE 4V AP/PA/LAT/MERC MARY / PROCEDURE REASON: Polyarthralgia * * [...] a joint effusion. DIVISION OF RADIOLOGY [facility] * * *Final Report* * [...] IMPRESSION: 1. No significant knee arthropathy demonstrated. Loading Inspector: CLARY Transcribe Date/Time: Jan 06 2024 12:19P Dictated by : BARBARA KIRBY MD This examination was interpreted and the report reviewed and electronically signed by: BARBARA KIRBY MD on Jan 06 2024 12:19PM EST [facility] XR LUMBAR 3V AP/LAT/L5-S1on 01-06-2024 XR LUMBAR [...] 2. Lower lumbar spine degenerative facet arthrosis. Loading [facility] Transcribe Date/Time: Jan 06 2024 12:14P Dictated by : BARBARA KIRBY MD This examination was interpreted and the report reviewed and electronically signed by: BARBARA KIRBY MD on Jan 06 2024 12:15PM EST [id number] Normal [facility] XR Lumbar spine 3 Viewson IMPRESSION: 1. L1-L2 degenerative disc disease. 2. Lower lumbar spine degenerative facet arthrosis. Loading Inspector: [facility] Transcribe Date/Time: Jan 06 2024 12:14P [...] L4-L5 and L5-S1. DIVISION OF RADIOLOGY Provider, [facility] - 01/06/2024 * * *Final Report* [...] 2. Lower lumbar spine degenerative facet arthrosis. Loading [facility] Transcribe Date/Time: Jan 06 2024 12:14P Dictated by : BARBARA KIRBY MD This examination was interpreted and the report reviewed and electronically signed by: BARBARA KIRBY MD on Jan 06 2024 12:15PM EST [facility] XR Lumbar spine 3 ViewsOrder ed By: Ccf Provider on 01-06-2024 [facility] XR SI JTS 2V AP PELV/FERGUSO Non [...] maintained. IMPRESSION: 1. No evidence of sacroiliitis. Loading Inspector: [facility] Transcribe Date/Time: Jan 06 2024 12:13P Dictated by : BARBARA KIRBY MD This examination was interpreted and the report reviewed and electronically signed by: BARBARA KIRBY MD on Jan 06 2024 12:13PM EST [id number] Normal [facility] XR Sacroiliac Joint Viewson 01-06-2024 IMPRESSION: 1. No evidence of sacroiliitis. Loading Inspector: [facility] Transcribe Date/Time: Jan 06 2024 12:13P Dictated by : BARBARA KIRBY MD This examination was interpreted and the report reviewed and electronically signed by: BARBARA KIRBY MD on Jan 06 2024 12:13PM [facility] DIVISION OF RADIOLOGY * * *Final Report* [...] spaces are maintained. DIVISION OF RADIOLOGY Provider, [facility] - 01/06/2024 * * *Final Report* [...] IMPRESSION IMPRESSION: 1. No evidence of sacroiliitis. Loading Inspector: CLARY Transcribe Date/Time: Jan 06 2024 12:13P Dictated by : BARBARA KIRBY MD This examination was interpreted and the report reviewed and electronically signed by: BARBARA KIRBY MD on Jan 06 2024 12:13PM EST [facility] cCP IgG SerPl-aCncon 01-05- 024 Cyclic citrullinated peptide IgG Qn <15 Normal <20 [facility] Comment on above: Order Comment: Speci men Type: BLOOD SPECIMENOrdering Facility: [facility] Address: [address] [place] [address] Performed By: #### 3 3935-8 ####[facility] [id number] [place] [address] [place] dsDNA Ab Ser Ql CLIFon 01-05 DNA double strand Ab IF Crithidia luciliae Ql (S) Negative Normal Negative [facility] Comment on above: Order Comment: Speci men Type: BLOOD SPECIMEN [facility]ing Facility[facility] Address: [address] [place] [address] Result Comment: Crit hidia luciliae assay is used as an aid in diagnosis of systemic lupus erythematosus (SLE). A negative result cannot rule out SLE. Low positive titers may be seen with other systemic autoimmune diseases. Clinical correlation is required. Performed By: #### 2 157-6, 30766-3 #### [facility] CLIA [id number] [address] [place] [address] [place] Basophils Auto (Bld) [#/Vol] on 10-16-2023 Basophils (Bld) [#/Vol] 0.1 10 3/uL 0.0-0.1 [facility] Basophils/100 WBC Auto (Bld) on 10-16-2023 Basophils/100 WBC (Bld) 2.0 % 0.2-2.0 [facility] Centriole Ab IF (S) [Titer]o n 10-16-2023 Anti-Nuclear Ab Centriole Pattern TNP . [facility] Centromere Ab IF (S) [Titer] on 10-16-2023 Anti-Nuclear Ab Centromere Pattern TNP . [facility] Cholesterol in LDL Calc [Mas s/Vol]on 10-16-2023 Cholesterol in LDL [Mass/Vol] 99.0 mg/dL [facility] Comment on above: <100 mg/dl [id number] 0-129 mg/dl NEAR OR ABOVE [id number] mg/dl BORDERLINE [id number] mg/dl HIGH>190 mg/dl VERY HIGH Cholesterol in VLDL Calc [Ma ss/Vol]on 10-16-2023 Cholesterol in VLDL [Mass/Vol] 13.2 mg/dL [facility] Eosinophils/100 WBC Auto (Bl d)on 10-16-2023 Eosinophils/100 WBC (Bld) 7.9 % 0.9-7.0 [facility] Erythrocyte distribution wid th Auto (RBC) [Ratio]on 10-16-2023 Erythrocyte distribution width (RBC) [Ratio] 11.7 % 11.0-15.0 [facility] Estimated glomerular filtrat ion rate (GFR) non- Americanon 10-16-2023 GFR/1.73 sq M.predicted among non-blacks MDRD (S/P/Bld) [Vol rate/Area] mL/min/{1.73_m2} >=60 [facility] Globulin Calc (S) [Mass/Vol] on 10-16-2023 Globulin (S) [Mass/Vol] 4.2 g/dL [facility] Hematocrit Auto (Bld) [Volum e fraction]on 10-16-2023 Hematocrit (Bld) [Volume fraction] 40.4 % 36.0-48.0 [facility] Hemoglobin [Mass/volume] in Bloodon 10-16-2023 Hemoglobin (Bld) [Mass/Vol] 13.4 g/dL 12.0-16.0 [facility] Homogenous nuclear Ab patter n (S) [Titer]on 10-16-2023 Anti-Nuclear Ab Homogeneous Pattern TNP . [facility] Iron binding capacity [Mass/ volume] in Serum or Plasmaon 10-16-2023 Iron binding capacity [Mass/Vol] 370.0 ug/dL 250.0-450.0 [facility] Iron saturation [Mass Fracti on] in Serum or Plasmaon 10-16-2023 Iron saturation [Mass fraction] 46.8 % [facility] Laboratory - Chemistry and C hemistry - challengeon 10-16-2023 Albumin [Mass/Vol] 4.0 g/dL 3.4-5.0 [facility] ALP [Catalytic activity/Vol] 123 U/L 46-116 [facility] ALT [Catalytic activity/Vol] 56 U/L 14-59 [facility] AST [Catalytic activity/Vol] 29 U/L 15-37 [facility] Bilirubin [Mass/Vol] 0.6 mg/dL 0.2-1.0 [facility] Calcium [Mass/Vol] 9.6 mg/dL 8.5-10.1 [facility] Chloride [Moles/Vol] 98 mmol/L 98-107 [facility] Cholesterol [Mass/Vol] 208 mg/dL <=200 [facility] Cholesterol in HDL [Mass/Vol] 96 mg/dL 40-60 [facility] Comment on above: > or =60 mg/dl - LOW CARDIOVASCULAR RISK<40 mg/dl - HIGH CARDIOVASCULAR RISK CO2 [Moles/Vol] 28.5 mmol/L 21.0-32.0 [facility] Creatinine [Mass/Vol] 0.73 mg/dL 0.55-1.02 [facility] GFR/1.73 sq M.predicted MDRD (S/P/Bld) [Vol rate/Area] mL/min/{1.73_m2} >=60 [facility] Glucose [Mass/Vol] 92 mg/dL 74-106 [facility] Iron [Mass/Vol] 173.0 ug/dL 50.0-170.0 [facility] Potassium [Moles/Vol] 4.2 mmol/L 3.5-5.1 [facility] Protein [Mass/Vol] 8.2 g/dL 6.4-8.2 [facility] Sodium [Moles/Vol] 137 mmol/L 136-145 [facility] Triglyceride [Mass/Vol] 66 mg/dL <=150 [facility] TSH Qn 0.686 m[IU]/L 0.358-3.740 [facility] Urate [Mass/Vol] 4.1 mg/dL 2.6-6.0 [facility] Urea nitrogen [Mass/Vol] 8.0 mg/dL 7.0-18.0 [facility] Urea nitrogen/Creatinine [Mass ratio] 11.0 mg/mg [facility] Laboratory - Hematology and Cell countson 10-16-2023 ESR (Bld) [Velocity] 28 mm/h <=30 [facility] Immature granulocytes/100 WBC (Bld) 0.0 % 0.0-0.5 [facility] Leukocytes [#/volume] correc gudelia for nucleated erythrocytes in Blood by Automated counon 10-16-2023 WBC corrected for nucl RBC Auto (Bld) [#/Vol] 3.4 10 3/uL 4.0-11.0 [facility] Lymphocytes Auto (Bld) [#/Vo l]on 10-16-2023 Lymphocytes (Bld) [#/Vol] 1.6 10 3/uL 1.2-3.8 [facility] Lymphocytes/100 WBC Auto (Bl d)on 10-16-2023 Lymphocytes/100 WBC (Bld) 45.6 % 20.5-60.0 [facility] MCH Auto (RBC) [Entitic mass ]on 10-16-2023 MCH (RBC) [Entitic mass] 30.7 pg 26.7-34.0 [facility] MCHC Auto (RBC) [Mass/Vol]on 10-16-2023 MCHC (RBC) [Mass/Vol] 33.2 g/dL 29.9-35.2 [facility] MCV Auto (RBC) [Entitic vol] on 10-16-2023 MCV (RBC) [Entitic vol] 92.4 fL 81.0-99.0 [facility] Midbody Ab IF (S) [Titer]on 10-16-2023 Anti-Nuclear Ab Midbody Pattern TNP . [facility] Mitotic spindle apparatus Ab IF [Titer]on 10-16-2023 ALONDRA Spindle Apparatus Pattern TNP . [facility] Monocytes Auto (Bld) [#/Vol] on 10-16-2023 Monocytes (Bld) [#/Vol] 0.3 10 3/uL 0.3-0.8 [facility] Monocytes/100 WBC Auto (Bld) on 10-16-2023 Monocytes/100 WBC (Bld) 9.6 % 1.7-12.0 [facility] Neutrophils Auto (Bld) [#/Vo l]on 10-16-2023 Neutrophils (Bld) [#/Vol] 1.2 10 3/uL 1.4-6.5 [facility] Neutrophils/100 WBC Auto (Bl d)on 10-16-2023 Neutrophils/100 WBC (Bld) 34.9 % 43.0-75.0 [facility] No Panel Informationon 10-16 Anti-Nuclear Antibody Comment 2 Comment . [facility] Comment on above: Pattern Potential Di sease Association Homogeneous Systemic Lupus Erythematosus, Drug Induced Systemic Lupus Erythematosus, Chronic Autoimmune hepatitis, Juvenile Idiopathic Arthritis Speckled Sjogren Syndrome, Systemic Lupus Erythematosus, Subacute Cutaneous Lupus, Lupus, Congenital Heart Block, Mixed Connective Tissue Disease, Scleroderma-diffuse, Scleroderma-Autoimmune Myositis Overlap Syndrome, Systemic Lupus Gdoppqhhilsmr-Rbxnmpqkywx-Rfpbzdchcl Myositis Overlap Syndrome, Systemic Autoimmune Rheumatic Disease, [...] Antiphospholipid Syndrome Performed at: CB - [facility] [address] [id number] Director: Branden Melendez PhD, Phone: [phone] Pattern Potential [facility] Homogeneous Systemic Lupus Erythematosus, Drug Induced Systemic Lupus Erythematosus, Chronic Autoimmune hepatitis, Juvenile Idiopathic Arthritis Speckled Sjogren Syndrome, Systemic Lupus Erythematosus, Subacute Cutaneous Lupus, Lupus, Congenital Heart Block, Mixed Connective Tissue Disease, Scleroderma-diffuse, Scleroderma-Autoimmune Myositis Overlap Syndrome, Systemic Lupus Hkrqhhdoxocpc-Qfkfxsrzrev-Kxcnwwiuje Myositis Overlap Syndrome, Systemic Autoimmune Rheumatic Disease, [...] Antiphospholipid Syndrome Performed at: CB - [facility] [address] [id number] Director: Branden Melendez PhD, Phone: [phone] Anti-Streptolysin O Antibody 225.8 [IU]/mL 0.0-200.0 [facility] Comment on above: Performed at: CB - [facility] [address] [id number] Director: Branden Melendez PhD, Phone: [phone] C-Reactive Protein, Quantitative <0.50 mg/dL <=0.50 [facility] Eosinophils # (Auto) 0.3 10 3/uL 0.0-0.7 [facility] Immature Granulocyte # (Auto) 0.00 10 3/uL 0.00-0.03 [facility] Nuclear Ab (S) [Titer]on Anti-Nuclear Antibody Screen Positive . [facility] Comment on above: Negative <1:80 Borde rline 1:80 Positive >1:80 Negative <1:80 Borde rline 1:80 Positive >1:80 Nuclear dots nuclear Ab lucie iraida IF (S) [Titer]on 10-16-2023 Anti-Nuclear Ab Nuclear Dot Pattern TNP . [facility] Nuclear membrane pores nucle ar Ab pattern IF (S) [Titer]on 10-16-2023 ALONDRA Nuclear Membrane Pattern TNP . [facility] Nucleolar nuclear Ab pattern (S) [Titer]on 10-16-2023 Anti-Nuclear Ab Nucleolar Pattern TNP . [facility] PCNA extractable nuclear Ab IF (S) [Titer]on 10-16-2023 Anti-Nuclear Ab PCNA Pattern TNP . [facility] Platelet mean volume Auto (B ld) [Entitic vol]on 10-16-2023 Platelet mean volume (Bld) [Entitic vol] 10.4 fL 9.5-13.5 [facility] Platelets Auto (Bld) [#/Vol] on 10-16-2023 Platelets (Bld) [#/Vol] 301 10 3/uL 150-450 [facility] RBC Auto (Bld) [#/Vol]on RBC (Bld) [#/Vol] 4.37 10 6/uL 4.20-5.40 [facility] Serum or plasma albumin/glob ulin mass ratioon 10-16-2023 Albumin/Globulin [Mass ratio] 1.0 {ratio} [facility] Serum or plasma anion gap de terminationon 10-16-2023 Anion gap [Moles/Vol] 14.7 mmol/L [facility] Serum or plasma cyclic adeno sine monophosphate measurement (moles/volume)on 10-16-2023 Adenosine monophosphate.cyclic [Moles/Vol] 6 units 0-19 [facility] Comment on above: Negative <20 Weak po sitive 20 - 39 Moderate positive 40 - 59 Strong positive >59Performed at: [facility] [id number] Director: Branden Melendez PhD, Phone: [phone] Serum or plasma rheumatoid f actor measurement (units/volume)on 10-16-2023 Rheumatoid factor Qn 10.4 [IU]/mL <14.0 Fi [facility] Serum or plasma thyroperoxid ase antibody assay (units/volume)on 10-16-2023 TPO Ab Qn [IU]/mL 0-34 [facility] Serum or plasma total choles terol/high density lipoprotein (HDL) cholesterol mass darrin 10-16-2023 Cholesterol.total/Chol esterol in HDL [Mass ratio] 2.2 {ratio} [facility] Comment on above: 3.3 - 4.4 LOW RISK4. 4 - 7.1 AVERAGE RISK7.1 - 11.0 MODERATE RISK>11.0 HIGH RISK Speckled nuclear Ab pattern (S) [Titer]on 10-16-2023 Anti-Nuclear Ab Speckled Pattern 1:320 . [facility] Comment on above: Dense Fine Speckled pattern is noted. This pattern suggeststhe presence of DFS70 antibody which has a low prevalencein systemic autoimmune rheumatic diseases.ICAP nomenclature: AC-2,4,5,29 Dense Fine Speckled pattern is noted. This pattern suggeststhe presence of DFS70 antibody which has a low prevalencein systemic autoimmune rheumatic diseases.ICAP nomenclature: AC-2,4,5,29 Thyroglobulin [Mass/volume] in Serum or Plasmaon 10-16-2023 Thyroglobulin [Mass/Vol] <1.0 [IU]/mL 0.0-0.9 [facility] Comment on above: Thyroglobulin Antibo dy measured by HeTextedMethodologyIt should be noted that the presence of thyroglobulinantibodies may not be pathogenic nor diagnostic, especiallyat very low levels. The assay butter production supervisor has found thatfour percent of individuals without evidence of thyroiddisease or autoimmunity will have positive TgAb levels upto 4 IU/mL.Performed at: - [id number] [place], [place] [id number] Director: Branden Melendez PhD, Phone: [phone] Arvind 10-14-2023 CNCO Letter Text Normal [facility] CNPNon 10-13-2023 CNPN Telephone ([id number]) -------- STACIE DAVIDSON ([id number]) 1970 F Date Time Provider Department 10/13/23 UTE HART [id number] During your visit today, we recorded the following information about you: Kayce Norton 10/13/2023 3:50 PM Signed Patient called again, requesting a letter stating that she is fit for duty for her job to be faxed. Attn: [facility]. Fax number [phone]. Any questions please call patient at [phone], she can't go back to work until they receive something. Thank you! Marilynn Romero MA 10/14/2023 10:02 AM Signed Called and left a voicemail for her to let us know if she needs just a letter from office fit for duty or if there is a form that [employer] has that needs to be filled out then it needs to be faxed over. [place] Kristian 10/14/2023 11:41 AM Signed Called again about letter Marilynn Romero MA 10/14/2023 1:08 PM Signed Fit for work letter was typed out and faxed over to [facility]. Talked to patient and she said that is what they needed. Marilynn Romero MA Allergies As of Date: 10/13/2023 Noted Allergy Reaction SULFA (SULFONAMIDE ANTIBIOTICS) 07/18/2023 2 - Rash TETRACYCLINES 12/10/2017 9 - Itching 2 - Rash 12 - Shortness of Breath Date Reviewed: 09/30/2023 Reviewed by: 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 APRN.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 - Fully Assessed Reason for Visit: Fit [...] Status:Closed by EMERALD MELENDEZ RN on 10/14/23 [facility] Yancy 10-05-2023 CNPN Telephone ([id number]) -------- STUART,STACIE ([id number]) 1970 F Date Time Provider Department 10/05/23 UTE HART [id number] During your visit today, we recorded the following information about you: Kayce Norton 10/05/2023 11:37 AM Signed Patient called needing a return to work fitness form. Any questions she can be reached at [phone] The form should be sent to [employer], . Please also my chart her a copy. Thank You! Marilynn Romero MA 10/06/2023 8:52 AM Addendum There was not return to work fitness form in the packet. I faxed over the forms to [employer] on 09/30/23. I left a vm on patients phone to let her know and that I can't upload them to her [employer] because she does not have one set up. Marilynn Romero MA Allergies As of Date: 10/05/2023 Noted Allergy Reaction SULFA (SULFONAMIDE ANTIBIOTICS) 07/18/2023 2 - Rash TETRACYCLINES 12/10/2017 9 - Itching 2 - Rash 12 - Shortness of Breath Date Reviewed: 09/30/2023 Reviewed by: 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 APRN.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 - Fully Assessed Reason for Visit: return [...] Encounter Status:Closed by MARILYNN ROMERO on 10/06/23 Normal [facility] CNCOon 09-30-2023 CNCO Letter Text Normal [facility] CNOVon 09-30-2023 CNOV Office Visit ([id number] ) -------- STACIE DAVIDSON ([id number]) 1970 F Date Time Provider Department 09/30/23 1:00 PM MEREDITH BLANCO [id number] During your visit today, we recorded the following information about you: Temperature Pulse Blood pressure Weight 98.6 degrees 78/minute 125/80 73.9 kg Height 1.549 m [place], MarilynnMOON 09/30/2023 12:59 PM Signed What is the [...] restrictions. Paperwork completed Follow up: LISA Blanco APRN.CNP Referring Provider: UTE HART [[id number]] Allergies As of Date: 09/30/2023 Noted Allergy Reaction SULFA (SULFONAMIDE ANTIBIOTICS) 07/18/2023 2 - Rash TETRACYCLINES 12/10/2017 9 - Itching 2 - Rash 12 - Shortness of Breath Date Reviewed: 09/30/2023 Reviewed by: 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 APRN.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 - Fully Assessed Reason for Visit: Post [...] for Encounter Date Provider Department Center 09/30/2023 [id number] BLANCO [id number] [facility] Encounter Status:Closed by MEREDITH BLANCO on 09/30/23 [facility] Consultation Noteon 09-29-19 Consultation Note [id number] [id number]#[id number] F [facility] Consultation Note [id number] 2020 [id number]#[id number] F [id number] STACIE DAVIDSON ([id number]) 1970 F Date Time Provider Department 09/23/23 UTE HART [id number] During your visit today, we recorded the [...] to below contact. Completed copy scanned in [facility] Date of Surgery: 09/16/23 Estimated RTW date: 10/19/23 Employer: [employer]. Faxed to the [employer] Date sent to employer: 09/30/23 Received fax confirmation: YES Allergies As of Date: 09/23/2023 Noted Allergy Reaction SULFA (SULFONAMIDE ANTIBIOTICS) 07/18/2023 2 - Rash TETRACYCLINES 12/10/2017 9 - Itching 2 - Rash 12 - Shortness of Breath Date Reviewed: 09/16/2023 Reviewed by: Lori Shaw RN - Fully Assessed Reason for Visit: [facility] Paperwork [5101] Prescriptions as of 09/30/2023 - Lactobacillus acidophilus [...] Encounter Status:Closed by MARILYNN ROMERO on 09/30/23 [facility] ANES POSTPROC EVALon 024 ANES POSTPROC EVAL HNO ID: [id number] Author: JORDY DASILVA DO Service: Anesthesiology Author Type: Anesthesiologist Type: Anesthesia Postprocedure Evaluation Filed: 09/16/2023 13:55 Note Text: POST ANESTHESIA EVALUATION NOTE : 1970 Procedure Summary Date: 09/16/23 Room / Location: [place] [address] / OR Anesthesia Start: 736 Anesthesia Stop: 932 [...] September 16, 2023 TIME: 1:55 PM CSN: [id number] [facility] ANES PRE-OPon 09-16-2023 [facility] PRE-OP HNO ID: [id number] Author: JORDY DASILVA DO Service: Anesthesiology Author Type: Resident Type: Anesthesia Preprocedure Evaluation Filed: 09/16/2023 07:03 Note Text: -------- Attestation signed by Jordy Dasilva DO at 09/16/2023 7:03 AM I saw and evaluated the patient. Discussed with the HOLTER TECHNICIAN/AA/resident and agree with findings and plan as documented in the note. Jordy Dasilva DO September 16, 2023 7:03 AM -------- ANESTHESIOLOGY DAY OF SURGERY NOTE : 1970 Procedure Information Date/Time: 09/16/2330 Procedure: LAPAROSCOPIC CHOLECYSTECTOMY WITH GRAMS (Abdomen) Location: OR / OR Surgeons: Ute Hart MD Estimated body [...] and consent discussed: yes. Patient / Responsible [employer] agrees to proceed: yes Patient / Surrogate [...] September 16, 2023 TIME: 6:56 AM CSN: [id number] [facility] BRIEF OP NOTon 09-16-2023 BRIEF OP NOT HNO ID: [id number] Author: UTE HART MD Service: General Surgery Author Type: Physician Type: Brief Op Note Filed: 09/16/2023 10:00 Note Text: BRIEF OPERATIVE / PROCEDURE NOTE LOG ID: [id number] SURGERY/PROCEDURE DATE: 09/16/2023 INCISION/PROCEDURE START TIME: 8:07 AM INCISION CLOSE/PROCEDURE END TIME: 9:21 AM SURGEON(S)/PROCEDURALIST (S) AND MANUFACTURED BUILDINGS REPAIRER(S): Surgeon(s) and Role: * Ute Hart MD - Primary Physician Learning Development Specialist: Melissa Silverman PA-C SURGERY/PROCEDURE(S): Lap ronnell with IOC ANESTHESIA: General FINDINGS: Chronic cholecystitis ESTIMATED BLOOD LOSS: 50 mls SPECIMENS: Gallbladder COMPLICATIONS: None CLOSURE TECHNIQUE: Primary PRE-OP/PRE-PROCEDURE DIAGNOSIS: Biliary colic POST-OP/POST-PROCEDURE DIAGNOSIS: Same as Preop SIGNATURE: Ute Hart MD PATIENT NAME: Stacie Davidson DATE: September 16, 2023 TIME: 9:59 AM [facility] HISTORY PHYSICALon HISTORY PHYSICAL HNO ID: [id number] Author: UTE HART MD Service: General Surgery [...] DATE: September 16, 2023 TIME: 7:35 AM [facility] NURSING PROGon 09-16-2023 NURSING PROG HNO ID: [id number] Author: SYLVIE ALDANA, RN Service: Nursing Author Type: Registered Nurse Type: Nursing Progress Note Filed: 09/16/2023 06:17 Note Text: PATIENT EDUCATION TOPIC: PROCEDURE / SURGERY: Pre-op Teaching: Surgery PATIENT NAME: Stacie Davidson PATIENT LOCATION: [place] TO LEARN COGNITIVE ABILITY: [...] REFERRAL (RECOMMENDATION): None Electronically Signed By: Sylvie Aldana [facility] OPERATIVE NOon 09-16-2023 OPERATIVE NO HNO ID: [id number] Author: UTE HART MD Service: General Surgery Author Type: Physician Type: Operative Report Filed: 09/20/2023 10:08 Note Text: [facility] - Operative Report STACIE DAVIDSON : 1970 AGE: 53. SEX: F PATIENT TYPE: A HOSP SVC: GNS LOCATION: [facility] ATTENDING PHYSICIAN: Ute Hart MD CSN NUMBER: [id number] DATE OF SURGERY/PROCEDURE: 09/16/2023 INCISION/PROCEDURE START TIME: 8:07 AM INCISION CLOSE/PROCEDURE END TIME: 9:21 AM PREOPERATIVE DIAGNOSIS: 1. Right upper quadrant biliary colic and cholelithiasis. 2. Hemangioma at the base of the gallbladder. POSTOPERATIVE DIAGNOSIS: 1. Right upper quadrant biliary colic and cholelithiasis. 2. Hemangioma at the base of the gallbladder. SURGEON: Ute Hart MD MANUFACTURED BUILDINGS REPAIRER: LUCITA Heath SURGERY/PROCEDURE: Laparoscopic cholecystectomy, intraoperative cholangiogram. ANESTHESIA: General endotracheal. COMPLICATIONS: None. ESTIMATED BLOOD LOSS: 100 mL. SPECIMENS: Gallbladder. WOUND CLASS: 2. INDICATIONS: Patient is a pleasant 53-year-old female who was referred to mt for cholecystectomy. She did have a large [...] made. A cholangiogram was performed using the [employer] catheter. This revealed no flow of contrast [...] assisted me in the absence of qualified operating room surgical technologist. She helped to retract the gallbladder and held the camera throughout the operation. Ute Hart MD TA:[id number] /[id number] [facility] SURGICAL PATHOLOGYon 024 CASE REPORT [facility] Comment on above: Order Comment: Speci men Type: TISSUE SPECIMEN Ordering Facility: [facility] Address: [address] [place] [address] Result Comment: Surg [facility] Pathology Report Case: [id number] Authorizing Provider: Ute Hart MD Collected: 09/16/2023 09:11 AM [facility] Received: 09/16/2023 11:51 AM Operating Room Pathologist: Evgeny Guido MD Specimen: GALLBLADDER Performed By: #### S #### [facility] CLIA [id number] [address] [place] [address] [place] CLINICAL HISTORY [facility] Comment on above: Order Comment: Speci men Type: TISSUE SPECIMEN Ordering Facility: [facility] Address: [address] [place] [address] Result Comment: pre- op diagnosis: Calculus of gallbladder without cholecystitis without obstruction [K80.20] Performed By: #### S #### [facility] CLIA [id number] [address] [place] [address] FINAL DIAGNOSIS [facility] Comment on above: Order Comment: Speci men Type: TISSUE SPECIMEN Ordering Facility: [facility] Address: [address] [place] [address] Result Comment: A. G allbladder, cholecystectomy: - Xanthogranulomatous cholecystitis. - Cholelithiasis. Performed By: #### S #### [facility] CLIA [id number] [address] [place] [address] OF [facility] FIN[facility]FORM[facility] Normal [facility] Comment on above: Order Comment: Speci ryan Type: TISSUE SPECIMEN Ordering Facility: [facility] Address: [address] [place] [address] Result Comment: Diag nostic interpretation performed at [facility], [address] [place] [address] CLIA# [id number] Publications Designer: Tor Eaton M.D. Performed By: #### S #### [facility] CLIA [id number] [address] [place] [address] GROSS DESCRIPTION A. GALLBLADDER Normal [facility] Comment on above: Order Comment: Speci [facility] Type: TISSUE SPECIMEN Ordering Facility: [facility] Address: [address] [place] [address] Result Comment: Rece ived in formalin designated [...] shave margin fundus with thickened area and inside sales account representative section of body are submitted cassette A1. BF September 16, 2023 12:45 PM Gross examination performed at [facility], [address] [place] [address] CLIA # [id number] Performed By: #### S #### [facility] CLIA [id number] [address] [place] [address] [place] TYPE + SCREENon 09-16-2023 ABO A [facility] Comment on above: Order Comment: Speci men Type: BLOOD SPECIMEN Ordering Facility: [facility] Address: [address] [place] [address] Performed By: #### T SCR #### [facility] CLIA [id number] [address] [place] [address] [place] HISTORICAL AB SCR STATUS Negative [facility] Comment on above: Order Comment: Speci men Type: BLOOD SPECIMEN Ordering Facility: [facility] Address: [address] [place] [address] Performed By: #### T SCR #### [facility] CLIA [id number] [address] [place] [address] [place] Rh Nom (Bld) Positive [facility] Comment on above: Order Comment: Speci men Type: BLOOD SPECIMEN Ordering Facility: [facility] Address: [address] [place] [address] Performed By: #### T SCR #### [facility] CLIA [id number] [address] [place] [address] [place] TYPE AND SCREEN EXPIRATION 09/19/2023 23:59 [facility] Comment on above: Order Comment: Speci men Type: BLOOD SPECIMEN Ordering Facility: [facility] Address: [address] [place] [address] Performed By: #### T SCR #### [facility] [place] [id number] [address] [place] [address] [place] CBC W Auto Differential pane l (Bld)on 09-12-2023 Basophils (Bld) [#/Vol] 0.06 10*3/uL Normal <0.11 [facility] Comment on above: Order Comment: Speci men Type: BLOOD SPECIMENOrdering Facility: [facility] Address: [address] [place] [address] Performed By: #### 5 7021-8 ####[facility] [id number] [place] [address] [place] Basophils/100 WBC (Bld) 1.5 % Normal [facility] Comment on above: Order Comment: Speci men Type: BLOOD SPECIMENOrdering Facility: [facility] Address: [address] [place] [address] Performed By: #### 5 7021-8 ####[facility] [id number] [place] [address] [place] Differential cell count method Nom (Bld) Auto Normal [facility] Comment on above: Order Comment: Speci men Type: BLOOD SPECIMENOrdering Facility: [facility] Address: [address] [place] [address] Performed By: #### 5 7021-8 ####[facility] [id number] [place] [address] [place] Eosinophils (Bld) [#/Vol] 0.25 10*3/uL Normal <0.46 [facility] Comment on above: Order Comment: Speci men Type: BLOOD SPECIMENOrdering Facility: [facility] Address: [address] [place] [address] Performed By: #### 5 7021-8 ####[facility] [id number] [place] [address] [place] Eosinophils/100 WBC (Bld) 6.1 % Normal [facility] Comment on above: Order Comment: Speci men Type: BLOOD SPECIMENOrdering Facility: [facility] Address: [address] [place] [address] Performed By: #### 5 7021-8 ####[facility] [id number] [place] [address] [place] Erythrocyte distribution width (RBC) [Ratio] 11.9 % Normal 11.5-15.0 [facility] Comment on above: Order Comment: Speci men Type: BLOOD SPECIMENOrdering Facility: [facility] Address: [address] [place] [address] Performed By: #### 5 7021-8 ####[facility] [id number] [place] [address] [place] Hematocrit (Bld) [Volume fraction] 41.4 % Normal 36.0-46.0 [facility] Comment on above: Order Comment: Speci men Type: BLOOD SPECIMENOrdering Facility: [facility] Address: [address] [place] [address] Performed By: #### 5 7021-8 ####[facility]IA [id number] [place] [address] [place] Hemoglobin (Bld) [Mass/Vol] 13.6 g/dL Normal 11.5-15.5 [facility] Comment on above: Order Comment: Speci men Type: BLOOD SPECIMENOrdering Facility: [facility] Address: [address] [place] [address] Performed By: #### 5 7021-8 ####[facility] [id number] [place] [address] [place] Immature granulocytes (Bld) [#/Vol] 10*3/uL Normal <0.10 [facility] Comment on above: Order Comment: Speci men Type: BLOOD SPECIMENOrdering Facility: [facility] Address: [address] [place] [address] Performed By: #### 5 7021-8 ####[facility] [id number] [address] [place] Immature granulocytes/100 WBC (Bld) 0.2 % Normal [facility] Comment on above: Order Comment: Speci men Type: BLOOD SPECIMENOrdering Facility: [facility] Address: [address] [place] [address] Performed By: #### 5 7021-8 ####[facility]IA [id number] [place] [address] [place] Lymphocytes (Bld) [#/Vol] 1.67 10*3/uL Normal 1.00-4.00 [facility] Comment on above: Order Comment: Speci men Type: BLOOD SPECIMENOrdering Facility: [facility] Address: [address] [place] [address] Performed By: #### 5 7021-8 ####[facility]IA [id number] [place] [address] [place] Lymphocytes/100 WBC (Bld) 40.5 % Normal [facility] Comment on above: Order Comment: Speci men Type: BLOOD SPECIMENOrdering Facility: [facility] Address: [address] [place] [address] Performed By: #### 5 7021-8 ####[facility]IA [id number] [place] [address] [place] MCH (RBC) [Entitic mass] 31.1 pg Normal 26.0-34.0 [facility] Comment on above: Order Comment: Speci men Type: BLOOD SPECIMENOrdering Facility: [facility] Address: [address] [place] [address] Performed By: #### 5 7021-8 ####[facility]IA [id number] [place] [address] [place] MCHC (RBC) [Mass/Vol] 32.9 g/dL Normal 30.5-36.0 [facility] Comment on above: Order Comment: Speci men Type: BLOOD SPECIMENOrdering Facility: [facility] Address: [address] [place] [address] Performed By: #### 5 7021-8 ####[facility] [id number] [place] [address] [place] MCV (RBC) [Entitic vol] 94.5 fL Normal 80.0-100.0 [facility] Comment on above: Order Comment: Speci men Type: BLOOD SPECIMENOrdering Facility: [facility] Address: [address] [place] [address] Performed By: #### 5 7021-8 ####[facility]IA [id number] [place] [address] [place] Monocytes (Bld) [#/Vol] 0.34 10*3/uL Normal <0.87 [facility] Comment on above: Order Comment: Speci men Type: BLOOD SPECIMENOrdering Facility: [facility] Address: [address] [place] [address] Performed By: #### 5 7021-8 ####[facility] [id number] [place] [address] [place] Monocytes/100 WBC (Bld) 8.3 % Normal [facility] Comment on above: Order Comment: Speci men Type: BLOOD SPECIMENOrdering Facility: [facility] Address: [address] [place] [address] Performed By: #### 5 7021-8 ####[facility] [id number] [place] [address] [place] Neutrophils (Bld) [#/Vol] 1.79 10*3/uL Normal 1.45-7.50 [facility] Comment on above: Order Comment: Speci men Type: BLOOD SPECIMENOrdering Facility: [facility] Address: [address] [place] [address] Performed By: #### 5 7021-8 ####[facility] [id number] [place] [address] [place] Neutrophils/100 WBC (Bld) 43.4 % Normal [facility] Comment on above: Order Comment: Speci men Type: BLOOD SPECIMENOrdering Facility: [facility] Address: [address] [place] [address] Performed By: #### 5 7021-8 ####[facility] [id number] [place] [address] [place] Nucleated RBC (Bld) [#/Vol] 10*3/uL Normal <0.01 [facility] Comment on above: Order Comment: Speci men Type: BLOOD SPECIMENOrdering Facility: [facility] Address: [address] [place] [address] Performed By: #### 5 7021-8 ####[facility]IA [id number] [place] [address] [place] Nucleated RBC/100 WBC (Bld) [Ratio] 0.0 /100 WBC Normal [facility] Comment on above: Order Comment: Speci men Type: BLOOD SPECIMENOrdering Facility: [facility] Address: [address] [place] [address] Performed By: #### 5 7021-8 ####[facility] [id number] [place] [address] [place] Platelet mean volume (Bld) [Entitic vol] 10.6 fL Normal 9.0-12.7 [facility] Comment on above: Order Comment: Speci men Type: BLOOD SPECIMENOrdering Facility: [facility] Address: [address] [place] [address] Performed By: #### 5 7021-8 ####[facility] [id number] [place] [address] [place] Platelets (Bld) [#/Vol] 287 10*3/uL Normal 150-400 [facility] Comment on above: Order Comment: Speci men Type: BLOOD SPECIMENOrdering Facility: [facility] Address: [address] [place] [address] Performed By: #### 5 7021-8 ####[facility] [id number] [place] [address] [place] RBC (Bld) [#/Vol] 4.38 10*6/uL Normal 3.90-5.20 [facility] Comment on above: Order Comment: Speci men Type: BLOOD SPECIMENOrdering Facility: [facility] Address: [address] [place] [address] Performed By: #### 5 7021-8 ####[facility] [id number] [place] [address] [place] WBC (Bld) [#/Vol] 4.12 10*3/uL Normal 3.70-11.00 [facility] Comment on above: Order Comment: Speci men Type: BLOOD SPECIMENOrdering Facility: [facility] Address: [address] [place] [address] Performed By: #### 5 7021-8 ####[facility] [id number] [place] [address] [place] NURSING PROGon 09-11-2023 NURSING PROG HNO ID: [id number] Author: MARISOL GALLEGOS, RN Service: Nursing Author Type: Registered Nurse Type: Nursing Progress Note Filed: 09/11/2023 13:40 Note Text: Chart reviewed for upcoming surgery. CMP drawn and resulted, CBC not drawn. Attempted to call lab to see if could be taken from lab already drawn-unable to do. Patient called and message left on voicemail of need to have lab completed at any [facility] lab near her home. [facility] Comprehensive metabolic 2000 panelon 09-10-2023 Albumin [Mass/Vol] 4.6 g/dL Normal 3.9-4.9 [facility] Comment on above: Order Comment: Speci men Type: BLOOD SPECIMEN Ordering Facility: [facility] Address: [address] [place], [place] [address] Performed By: #### 2 157-6, 29417-7 #### [facility] CLIA [id number] [address] [place], [place] [address] [place] ALP [Catalytic activity/Vol] 130 U/L High 34-123 [facility] Comment on above: Order Comment: Speci men Type: BLOOD SPECIMEN Ordering Facility: [facility] Address: [address] [place], [place] [address] Performed By: #### 2 157-6, 02911-6 #### [facility] CLIA [id number] [address] [place] [address] [place] ALT [Catalytic activity/Vol] 124 U/L High 7-38 [facility] Comment on above: Order Comment: Speci men Type: BLOOD SPECIMEN Ordering Facility: [facility] Address: [address] [place] [address] Performed By: #### 2 157-6, 34493-0 #### [facility] CLIA [id number] [address] [place] [address] [place] Anion gap [Moles/Vol] 8 mmol/L Low 9-18 [facility] Comment on above: Order Comment: Speci men Type: BLOOD SPECIMEN Ordering Facility: [facility] Address: [address] [place] [address] Performed By: #### 2 157-6, 28908-1 #### [facility] CLIA [id number] [address] [place] [address] [place] AST [Catalytic activity/Vol] 35 U/L Normal 13-35 [facility] Comment on above: Order Comment: Speci men Type: BLOOD SPECIMEN Ordering Facility: [facility] Address: [address] [place], [place] [address] Performed By: #### 2 157-6, 57111-1 #### [facility] CLIA [id number] [address] [place] [address] [place] Bilirubin [Mass/Vol] 0.2 mg/dL Normal 0.2-1.3 [facility] Comment on above: Order Comment: Speci men Type: BLOOD SPECIMEN Ordering Facility: [facility] Address: [address] [place] [address] Performed By: #### 2 157-6, 70249-4 #### [facility] CLIA [id number] [address] [place] [address] [place] Calcium [Mass/Vol] 10.2 mg/dL Normal 8.5-10.2 [facility] Comment on above: Order Comment: Speci men Type: BLOOD SPECIMEN Ordering Facility: [facility] Address: [address] [place] [address] Performed By: #### 2 157-6, 36318-2 #### [facility] CLIA [id number] [address] [place] [address] [place] Chloride [Moles/Vol] 100 mmol/L Normal 97-105 [facility] Comment on above: Order Comment: Speci men Type: BLOOD SPECIMEN Ordering Facility: [facility] Address: [address] [place] [address] Performed By: #### 2 157-6, 33350-2 #### [facility] CLIA [id number] [address] [place] [address] [place] CO2 [Moles/Vol] 28 mmol/L Normal 22-30 [facility] Comment on above: Order Comment: Speci men Type: BLOOD SPECIMEN Ordering Facility: [facility] Address: [address] [place] [address] Performed By: #### 2 157-6, 04787-7 #### [facility] CLIA [id number] [address] [place] [address] [place] Creatinine [Mass/Vol] 0.74 mg/dL Normal 0.58-0.96 [facility] Comment on above: Order Comment: Donte davis Type: BLOOD SPECIMEN Ordering Facility: [facility] Address: [address] [place] [address] Performed By: #### 2 157-6, 88016-7 #### [facility] CLIA [id number] [address] [place] [address] [place] Creatinine and Glomerular filtration rate.predicted panel (S/P/Bld) 97 mL/min/1.73m??? Normal >=60 [facility] Comment on above: Order Comment: Donte davis Type: BLOOD SPECIMEN Ordering Facility: [facility] Address: [address] [place] [address] Result Comment: Petra mated Glomerular Filtration Rate [...] reflect actual GFR. Performed By: #### 2 157-6, 58477-8 #### [facility] CLIA [id number] [address] [place] [address] [place] Glucose [Mass/Vol] 93 mg/dL Normal 74-99 [facility] Comment on above: Order Comment: Donte davis Type: BLOOD SPECIMEN Ordering Facility: [facility] Address: [address] [place] [address] Result Comment: The [place] [employer] (ADA) provides guidance for cutoff [...] Standards of Medical Care in Diabetes 2016, [place] [employer]. Diabetes Care. 2016.39(Suppl 1). Performed By: #### 2 157-6, 32043-6 #### [facility] CLIA [id number] [address] [place] [address] [place] Potassium [Moles/Vol] 4.6 mmol/L Normal 3.7-5.1 [facility] Comment on above: Order Comment: Speci men Type: BLOOD SPECIMEN Ordering Facility: [facility] Address: [address] [place] [address] Performed By: #### 2 157-6, 54561-5 #### [facility] CLIA [id number] [address] [place] [address] [place] Protein [Mass/Vol] 7.6 g/dL Normal 6.3-8.0 [facility] Comment on above: Order Comment: Speci men Type: BLOOD SPECIMEN Ordering Facility: [facility] Address: [address] [place] [address] Performed By: #### 2 157-6, 69799-0 #### [facility] CLIA [id number] [address] [place] [address] [place] Sodium [Moles/Vol] 136 mmol/L Normal 136-144 [facility] Comment on above: Order Comment: Speci men Type: BLOOD SPECIMEN Ordering Facility: [facility] Address: [address] [place] [address] Performed By: #### 2 157-6, 89869-4 #### [facility] CLIA [id number] [address] [place] [address] [place] Urea nitrogen [Mass/Vol] 11 mg/dL Normal 7-21 [facility] Comment on above: Order Comment: Speci men Type: BLOOD SPECIMEN Ordering Facility: [facility] Address: [address] [place] [address] Performed By: #### 2 157-6, 41476-2 #### [facility] CLIA [id number] [address] [place] [address] [place] ECG COMPLETEon 09-10-2023 ECG COMPLETE Ventricular Rate : 6 7 BPM Atrial Rate : 67 BPM P-R Interval : 150 ms QRS Duration : 86 ms Q-T Interval : 414 ms QTC Calculation(Bazett) : 437 ms Calculated P [place] : 58 degrees Calculated R [place] : 38 degrees Calculated T [place] : 38 degrees NORMAL SINUS RHYTHM NORMAL ECG Confirmed by DIAZ MEJÍA MD ([id number]) on 09/11/2023 7:14:45 AM NAME : STACIE DAVIDSON PID : [id number] : 1970 Gender : Female Race : ORD : [id number] Procedure Date : Sep 10 2023 16:23:01 Edit Date : Sep 11 2023 07:14:48 Diagnosis: NORMAL SINUS RHYTHM NORMAL ECG Confirmed by DIAZ MEJÍA MD ([id number]) on 09/11/2023 7:14:45 AM Test Reason : SURGERY Location : 545 : [facility] Overread By : DIAZ MEJÍA MD Edited By : DIAZ MEJÍA MD Referred By : UTE HART Acquired by : Afshan FENG [facility] HISTORY PHYSICALon HISTORY PHYSICAL HNO ID: [id number] Author: ROXANN FRANCOIS APRN.CNP Service: ? Author Type: Nurse Practitioner Type: H&P Filed: 09/11/2023 05:49 Note Text: HISTORY AND PHYSICAL EXAMINATION SERVICE DATE: 09/10/2023 SERVICE TIME: 4:35 PM PRIMARY CARE PHYSICIAN: Marry Schroeder, ALVIN, 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 REASON FOR VISIT: Stacie Davidson is a [...] COVID-19 original vaccine, age 12+ yr, monovalent ([employer] - PURPLE TOP) 12/08/2020 Imm Admin: COVID-19 original vaccine, age 12+ yr, monovalent ([employer] - PURPLE TOP) REVIEW OF SYSTEMS: PAIN ASSESSMENT: General: No weight loss, malaise or fevers. 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 No neurological symptoms or problems. Respiratory: Positive for Asthma, , Negative for Current cough, Pneumonia within 6 weeks (date) Cardiovascular: No history of HTN requiring medication, no history of angina, CHF, IN, cardiac surgery or stents. Denies rest pain, gangrene or revascularization/amputa tion for PVD. No history of cardiovascular symptoms or problems. 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 Normal [facility] CNOVon 09-04-2023 CNOV Office Visit (BMIREJ ) -------- STACIE DAVIDSON ([id number]) 1970 F Date Time Provider Department 09/04/23 [...] of acute right upper quadrant discomfort around [facility]. She subsequently underwent imaging that noted cholelithiasis. [...] is quite healthy. She works at the [employer], no heavy lifting involved. She does not [...] of acute right upper quadrant discomfort around [facility]. She subsequently underwent imaging that noted cholelithiasis. [...] is quite healthy. She works at the [employer], no heavy lifting involved. She does not [...] Confounding fa (more content not included)... Normal [facility] CT LIVER W IVCONon 3 CT LIVER W IVCON * * *Final Report* * * DATE OF EXAM: Aug 21 2023 9:30AM [facility] 0548 - CT LIVER W IVCON [...] There is mild bibasilar juxtapleural subsegmental atelectasis. Transmitter Engineer In Charge (topogram) images: No additional findings. IMPRESSION: 1. [...] any questions regarding this interpretation, please call [phone]. If you are unable to reach us at the number above, please feel free to contact [facility]iology at [phone]. [id number] Normal [facility] CT Liver W contrast Venkat IMPRESSION: 1. Since 05/21/2022, unchanged hemangiomas within [...] any questions regarding this interpretation, please call [phone]. If you are unable to reach us at the number above, please feel free to contact [facility] at [phone]. DIVISION OF RADIOLOGY * * *Final Report* * * DATE OF EXAM: Aug 21 2023 9:30AM [facility] 0548 - CT LIVER W IVCON [...] There is mild bibasilar juxtapleural subsegmental atelectasis. Transmitter Engineer In Charge (topogram) images: No additional findings. DIVISION OF RADIOLOGY Provider, [facility] - 08/21/2023 * * *Final Report* * * DATE OF EXAM: Aug 21 2023 9:30AM [facility] 0548 - CT LIVER W IVCON [...] There is mild bibasilar juxtapleural subsegmental atelectasis. Transmitter Engineer In Charge (topogram) images: No additional findings. IMPRESSION IMPRESSION: 1. Since 05/21/2022, unchanged hemangiomas within [...] any questions regarding this interpretation, please call [phone]. If you are unable to reach us at the number above, please feel free to contact [facility] at [phone]. [facility] Rad[facility] Study observation (narrative) [facility] CT Liver W contrast IVOrdere d By: Ccf Provider on 08-21-2023 [facility] Yancy 07-27-2023 CNPN Telephone ([facility]) -------- STACIE DAVIDSON ([id number]) 1970 F Date Time Provider Department 07/27/23 UTE HART [facility] During your visit today, we recorded the following information about you: Milagro Ag 07/27/2023 10:46 AM Signed Referral received and scanned into [facility]. Reason for referral hepatic hemangioma, RUQ pain [...] in preventing side effects Provided patient with Ray [facility] appt number to schedule CT Pre [...] Diagnosis:Liver mass [R16.0] Order(s):CT LIVER W IVCON [3993650] Order #: [id number] FUTURE iv contrast (will be provided with [...] by EMERALD MELENDEZ RN on 08/05/23 Normal [facility] Ambulatory Visit Summaryon 1 09-22-2022 Ambulatory [...] for choosing us for your care. Normal [facility] ED Note-Physicianon 07-23-20 ED Note-Physician [id number] [facility] RAD - Ultrasound Reporton RAD - Ultrasound Report [id number] FF [facility] Urinalysis - AUTOMATEDon Appearance (U) cloudy [email or web address] Other Bilirubin Ql (U) Negative wali Other Color (U) dark yellow [employer] Other Glucose Ql (U) Negative [email or web address] Other Hemoglobin Ql (U) Large [employer] Other Ketones Ql (U) Negative [email or web address] Other Leukocyte esterase Test strip Ql (U) Large [employer] Other Nitrite Ql (U) Negative [email or web address] Other pH (U) 6.0 [pH] [employer] Other Protein Ql (U) >300 [employer] Other Specific gravity (U) [Rel density] >1.030 [employer] Other Urobilinogen (U) [Mass/Vol] 0.2 mg/dL [employer] Other Urinalysis - AUTOMATED No rt [employer] Other Urine Cultureon 07-11-2023 Urine Culture >100,000 [employer] Other Bacteria identified Cx Nom (U) ORGANISM: Escherichia coli (O:ESCCOL) [place] Count >100,000 Aerobic ANIYAH Charge (NMIC56) - [...] RESISTANT TO ALL B-LACTAM DRUGS. PERFORMED BY: [place] [address] PATHOLOGIST INDUSTRIAL RELATIONS SPECIALIST ALICE MOORE M.D. Normal The [facility] Comment on above: Performed By: #### C UU #### [address] ALONDRA by IFAon 10-08-2022 Antinuclear Antibodies, IFA Positive Abnormal The [facility] Comment on above: Result Comment: Nega tive <1:80 Borderline 1:80 Positive >1:80 Performed By: #### A NAIFA ####[facility] [address] [place] [address]Dr. Nish Beauchamp Centriole Pattern Normal The [facility] Comment on above: Performed By: #### A NAIFA ####[facility] [address]we[address] [place] [address]Dr. Nish Beauchamp Centromere Pattern Normal The [facility] Comment on above: Performed By: #### A NAIFA ####[facility] [address] [place] [address]Dr. Nish Beauchamp Homogeneous Pattern Normal The [facility] Comment on above: Performed By: #### A NAIFA ####[facility] [address] [place], [place] [address]Ti. Nish Beauchamp Midbody Pattern Normal The [facility] Comment on above: Performed By: #### A ZARINA ####[facility] [address] [place], [place] [address]Uy. Nish Beauchamp Note: Comment Normal The [facility] Comment on above: Result Comment: For more [...] titers Nucleosomes, Histones Drug-induced SLE Speckled Sm, GYROSCOPIC INSTRUMENT MECHANIC, SCL-70, SLE,MCTD,PSS (diffuse form), SS-A/SS-B Sjogrens Nucleolar SCL-70, PM-1/SCL High titers Scleroderma, PM/DM Centromere Centromere PSS (limited form) w/Crest syndrome variable Nuclear Dot Sp100,h10-tbgain Primary Biliary Cirrhosis Nuclear GP210, Primary Biliary Cirrhosis Membrane stefan A,B,C Performed By: #### A NAIFA ####[facility] [address] [place], [place] [address]Dr. Nish Beauchamp Nuclear Dot Pattern Normal The [facility] Comment on above: Performed By: #### A NAIFA ####[facility] [address] [place] [address]Dr. Nish Beauchamp Nuclear Membrane Pattern Normal The [facility] Comment on above: Performed By: #### A NAIFA ####[facility] [address] [place] [address]Dr. Nish Beauchamp Nucleolar Pattern Normal The [facility] Comment on above: Performed By: #### A NAIFA ####[facility] [address] [place] [address]Dr. Nish Beauchamp PCNA Pattern Normal The [facility] Comment on above: Performed By: #### A NAIFA ####[facility] [address] [place], [place] [address]Dr. Nish Beauchamp Speckled Pattern 1:640 Critically high The [facility] Comment on above: Result Comment: Dens e Fine Speckled pattern is noted. This pattern suggests the presence of DFS70 antibody which has a low prevalence in systemic autoimmune rheumatic diseases. ICAP nomenclature: AC-2,4,5,29 Performed By: #### A NAIFA ####[facility] [address] [place] [address]Dr. Nish Beauchamp Spindle Apparatus Pattern Normal The [facility] Comment on above: Performed By: #### A NAIFA ####[facility] [address] [place] [address]Dr. Nish Beauchamp ANTISTREPTOLYSIN O AB (ASO)o n 10-05-2022 Antistreptolysin O Ab 250.4 IU/mL Critically high 0.0-200. 0 The [facility] Comment on above: Performed By: #### A SOAB #### [facility] [address] [address] [address] Nish Beauchamp RHEUMATOID FACTORon 10-05-19 23 RA Latex Turbid. 10.8 IU/mL Normal <14.0 The [facility] Comment on above: Performed By: #### R F ####[facility] [address] [place], [place] [address]Dr. Nish Beauchamp CBC AUTO DIFFon 10-04-2022 BASO # 0.1 103/ul Normal 0.0-0.1 [facility] Comment on above: Performed By: #### C BC ####[facility] [address] [place] [address]Dr. Nish Beauchamp Basophils/100 WBC (Bld) 1.2 % Normal 0.2-2.0 [facility] Comment on above: Performed By: #### C BC ####[facility] [address] [place] [address]Dr. Nish Beauchamp EO # 0.2 103/ul Normal 0.0-0.7 [facility] Comment on above: Performed By: #### C BC ####[facility] [address]sj[address] [place] [address]Dr. Nish Beauchamp Eosinophils/100 WBC (Bld) 3.6 % Normal 0.9-7.0 The [facility] Comment on above: Performed By: #### C BC ####[facility] [address] [place] [id number]. Nish Beauchamp Erythrocyte distribution width (RBC) [Ratio] 12.4 % Normal 11.0-15.0 [facility] Comment on above: Performed By: #### C BC ####[facility] [address] [place] [address]Dr. Nish Beauchamp Hematocrit (Bld) [Volume fraction] 42.6 % Normal 36.0-48.0 [facility] Comment on above: Performed By: #### C BC ####[facility] Wh[address] [place], [place] [address]Dr. Nish Beauchamp Hemoglobin (Bld) [Mass/Vol] 14.2 g/dL Normal 12.0-16.0 [facility] Comment on above: Performed By: #### C BC ####[facility] [address] [place], [place] [address]Dr. Nish Beauchamp IG # 0.01 10e3/ul Normal 0.00-0.03 [facility] Comment on above: Performed By: #### C BC ####[facility] [address] [place], [place] [address]Dr. Nish Beauchamp IG % 0.2 % Normal 0.0-0.5 [facility] Comment on above: Performed By: #### C BC ####[facility] [address]wech[address] [place], [place] [address]Dr. Nish Beauchamp LYMPH # 2.0 103/ul Normal 1.2-3.8 [facility] Comment on above: Performed By: #### C BC ####[facility] [address] [place], [place] [address]Dr. Nish Beauchamp Lymphocytes/100 WBC (Bld) 37.6 % Normal 20.5-60.0 [facility] Comment on above: Performed By: #### C BC ####[facility] [address] [place] [id number]. Nish Beauchamp MANUAL DIFF REQ NO Normal The [facility] Comment on above: Performed By: #### C BC ####[facility] [address]ml[address] [place] [id number]. Nish Beauchamp MCH (RBC) [Entitic mass] 30.9 pg Normal 26.7-34.0 [facility] Comment on above: Performed By: #### C BC ####[facility] Q[address]umnpr[address] [place] [id number]. Nish Beauchamp MCHC (RBC) [Mass/Vol] 33.3 g/dL Normal 29.9-35.2 [facility] Comment on above: Performed By: #### C BC ####[facility] [address] [place] [id number]. Nish Beauchamp MCV (RBC) [Entitic vol] 92.6 fL Normal 81.0-99.0 [facility] Comment on above: Performed By: #### C BC ####[facility] [address]we[address] [place], [place] [address]Dr. Nish Beauchamp MONO # 0.5 103/ul Normal 0.3-0.8 [facility] Comment on above: Performed By: #### C BC ####[facility] [address] [place], [place] [address]Dr. Nish Beauchamp Monocytes/100 WBC (Bld) 9.2 % Normal 1.7-12.0 [facility] Comment on above: Performed By: #### C BC ####[facility] [address] [place], [place] [address]Dr. Eslyifeanyi Beauchamp NEUT # 2.5 103/ul Normal 1.4-6.5 [facility] Comment on above: Performed By: #### C BC ####[facility] [address] [place], [place] [address]Dr. Nish Beauchamp Neutrophils/100 WBC (Bld) 48.2 % Normal 43.0-75.0 [facility] Comment on above: Performed By: #### C BC ####[facility] [address] [place], [place] [address]Dr. Nish Beauchamp Platelet mean volume (Bld) [Entitic vol] 9.8 fL Normal 9.5-13.5 [facility] Comment on above: Performed By: #### C BC ####[facility] [address] [place] [id number]. Nish Beauchamp PLT 301 103/ul Normal 150-450 [facility] Comment on above: Performed By: #### C BC ####[facility] Q[address] [place], [place] [address]Ck. Nish Beauchamp RBC 4.60 106/ul Normal 4.20-5.40 [facility] Comment on above: Performed By: #### C BC ####[facility] [address] [place] [id number]. Nish Nito WBC 5.2 103/ul Normal 4.0-11.0 [facility] Comment on above: Performed By: #### C BC ####[facility] [address] [place] [address]Dr. Nish Beauchamp CRPon 10-04-2022 CRP [Mass/Vol] mg/L Normal <=1.0 [facility] Comment on above: Performed By: #### C RP, URIC, CMP, TSH ####[facility] [address] [place] [id number]. Nish Beauchamp FREE T4on 10-04-2022 Free T4 [Mass/Vol] 0.87 ng/dL Normal 0.76-1.46 The [facility] Comment on above: Performed By: #### V ITB12, FT4 #### [facility] [address] [place], [place] [address] Dr. Nish Beauchamp PROF 14(COMP METB)on 023 Albumin [Mass/Vol] 4.2 g/dL Normal 3.4-5.0 [facility] Comment on above: Performed By: #### C RP, URIC, CMP, TSH ####[facility] [address] [place] [id number]. Nish Beauchamp Albumin/Globulin [Mass ratio] 1.1 {ratio} Normal [facility] Comment on above: Performed By: #### C RP, URIC, CMP, TSH ####[facility] [address] [place] [id number]. Nish Beauchamp ALP [Catalytic activity/Vol] 90 U/L Normal 46-116 [facility] Comment on above: Performed By: #### C RP, URIC, CMP, TSH ####[facility] [address] [place] [address]Dr. Nish Beauchamp ALT [Catalytic activity/Vol] 63 U/L Critically high 14-59 [facility] Comment on above: Performed By: #### C RP, URIC, CMP, TSH ####[facility] [address] [place] [address]Dr. Nish Beauchamp Anion gap [Moles/Vol] 12.7 mmol/L Normal Th [facility] Comment on above: Performed By: #### C RP, URIC, CMP, TSH ####[facility] [address] [place] [address]Dr. Nish Beauchamp AST [Catalytic activity/Vol] 38 U/L Critically high 15-37 [facility] Comment on above: Performed By: #### C RP, URIC, CMP, TSH ####[facility] [address] [place] [address]Dr. Nish Beauchamp Bilirubin [Mass/Vol] 0.3 mg/dL Normal 0.2-1.0 [facility] Comment on above: Performed By: #### C RP, URIC, CMP, TSH ####[facility] [address] [place] [address]Dr. Nihs Beauchamp Calcium [Mass/Vol] 9.4 mg/dL Normal 8.5-10.1 [facility] Comment on above: Performed By: #### C RP, URIC, CMP, TSH ####[facility] [address]hi[address] [place] [address]Dr. Nish Beauchamp Chloride [Moles/Vol] 100 mmol/L Normal 98-107 [facility] Comment on above: Performed By: #### C RP, URIC, CMP, TSH ####[facility] [address]asc[address] [place] [address]Dr. Nish Beauchamp CO2 [Moles/Vol] 30.1 mmol/L Normal 21.0-32.0 [facility] Comment on above: Performed By: #### C RP, URIC, CMP, TSH ####[facility] [address] [place] [address]Dr. Nish Beauchamp Creatinine [Mass/Vol] 0.75 mg/dL Normal 0.55-1.02 [facility] Comment on above: Performed By: #### C RP, URIC, CMP, TSH ####[facility] [address] [place] [address]Dr. Nish Beauchamp EGFR-AF SLOVAK >60 Normal >=60 The [facility] Comment on above: Performed By: #### C RP, URIC, CMP, TSH ####[facility] [address] [place] [address]Dr. Nish Beauchamp EGFR-NON AF SLOVAK >60 Normal >=60 [facility] Comment on above: Performed By: #### C RP, URIC, CMP, TSH ####[facility] [address]zt[address] [place] [address]Dr. Nish Beauchamp Globulin (S) [Mass/Vol] 3.9 g/dL Normal [facility] Comment on above: Performed By: #### C RP, URIC, CMP, TSH ####[facility] [address] [place], [place] [address]Dr. Nish Beauchamp Glucose [Mass/Vol] 95 mg/dL Normal 74-106 [facility] Comment on above: Performed By: #### C RP, URIC, CMP, TSH ####[facility] [address] [place], [place] [address]Dr. Nish Beauchamp Potassium [Moles/Vol] 3.8 mmol/L Normal 3.5-5.1 [facility] Comment on above: Performed By: #### C RP, URIC, CMP, TSH ####[facility] [address] [place], [place] [address]Dr. Nish Beauchamp Protein [Mass/Vol] 8.1 g/dL Normal 6.4-8.2 [facility] Comment on above: Performed By: #### C RP, URIC, CMP, TSH ####[facility] [address] [place], [place] [address]Dr. Nish Beauchamp Sodium [Moles/Vol] 139 mmol/L Normal 136-145 [facility] Comment on above: Performed By: #### C RP, URIC, CMP, TSH ####[facility] [address] [place] [id number]. Nish Beauchamp Urea nitrogen [Mass/Vol] 13.0 mg/dL Normal 7.0-18.0 [facility] Comment on above: Performed By: #### C RP, URIC, CMP, TSH ####[facility] [address] [place] [address]Dr. Nish Beauchamp Urea nitrogen/Creatinine [Mass ratio] 17.3 mg/mg Normal [facility] Comment on above: Performed By: #### C RP, URIC, CMP, TSH ####[facility] [address] [place] [address]Dr. Nish Beauchamp [facility]ATE 37 mm/hr Critically high <=[address] [facility] Comment on above: Performed By: #### S EDR #### [facility] [address] [place] [address] [address] Nish Beauchamp TSHon 10-04-2022 TSH 0.876 uIU/mL Normal 0.358-3.740 [facility] Comment on above: Performed By: #### C RP, URIC, CMP, TSH ####[facility] [address] [place] [address]Dr. Nish Beauchamp URIC ACID SERUMon 10-04-2022 Urate [Mass/Vol] 4.8 mg/dL Normal 2.6-6.0 [facility] Comment on above: Performed By: #### C RP, URIC, CMP, TSH ####[facility] [address] [place] [address]Dr. Nish Beauchamp VITAMIN B12on 10-04-2022 Cobalamin (Vitamin B12) [Mass/Vol] 439.0 pg/mL Normal 193.0-986.0 [facility] Comment on above: Performed By: #### V ITB12, FT4 #### [facility] [address] [place] [address] [address] Nish Beauchamp MG MAMM SCREEN 3D MARY CADon 08-05-2022 MG MAMM SCREEN 3D MARY CAD Patient: STACIE DAVIDSON Exam Date: 08/05/2022 : 1970 Gender:F Ordering : ALVIN MARRY [facility] Admission #: [id number] Family : Order #: [id number] CLICK HERE TO VIEW EXAM RADIOLOGY REPORT [...] Treatments None Family Cancers None LOCATION: The [facility] BREAST COMPOSITION: Heterogeneously dense,which may obscure small [...] M.D. on 08/05/2022 at 15:22 Normal [facility] UA RANDOM W/MICROSCOPICon BACTERIA SMALL Abnormal NONE SEEN [facility] Comment on above: Performed By: #### U AMIC ####[facility] [address] [place] [address]Dr. Nish Beauchamp Bilirubin Ql (U) Negative Normal NEGATIVE The [facility] Comment on above: Performed By: #### U AMIC ####[facility] [address] [place] [id number]. Nish Beauchamp CAST NONE SEEN Normal NONE SEEN [facility] Comment on above: Performed By: #### U AMIC ####[facility] [address]er[address] [place] [address]Dr. Nish Beauchamp Clarity (U) CLEAR Normal CLEAR [facility] Comment on above: Performed By: #### U AMIC ####[facility] [address] [place] [address]Dr. Nish Beauchamp Color (U) LT. YELLOW Normal YELLOW [facility] Comment on above: Performed By: #### U AMIC ####[facility] [address] [place], [place] [address]Dr. Nish Beauchamp Crystals LM Nom (Urine sed) NONE SEEN Normal NONE SEEN [facility] Comment on above: Performed By: #### U AMIC ####[facility] [address] [place] [address]Dr. Nish Beauchamp Epithelial cells LM Ql (Urine sed) FEW Abnormal NONE SEEN /RARE [facility] Comment on above: Performed By: #### U AMIC ####[facility] X[address]ucric[address]xa[address] [place], [place] [address]Dr. Nish Beauchamp Glucose Ql (U) Negative Normal NEGATIVE The [facility] Comment on above: Performed By: #### U AMIC ####[facility] [address] [place], [place] [address]Dr. Nish Beauchamp Hemoglobin Ql (U) TRACE-INTACT Abnormal NEGATIVE The [facility] Comment on above: Performed By: #### U AMIC ####[facility] [address]zi[address] [place], [place] [address]Dr. Nish Beauchamp Ketones Ql (U) Negative Normal NEGATIVE The [facility] Comment on above: Performed By: #### U AMIC ####[facility] [address] [place], [place] [address]Dr. Nish Beauchamp LEUKOCYTES SMALL Abnormal NEGATIVE [facility] Comment on above: Performed By: #### U AMIC ####[facility] [address] [place], [place] [address]Dr. Nish Beauchamp MUCOUS NONE SEEN Normal NONE SEEN [facility] Comment on above: Performed By: #### U AMIC ####[facility] [address]relcv[address] [place] [address]Dr. Nish Beauchamp Nitrite Ql (U) Negative Normal NEGATIVE The [facility] Comment on above: Performed By: #### U AMIC ####[facility] [address] [place] [address]Dr. Nish Beauchamp pH (U) 6.0 [pH] Normal 5-9 [facility] Comment on above: Performed By: #### U AMIC ####[facility] [address]ices[address] [place] [address]Dr. Nish Beauchamp RBC 0-2 Normal 0-2 [facility] Comment on above: Performed By: #### U AMIC ####[facility] [address] [place] [address]DrJailene Beauchamp SPEC GRAVITY 1.010 Normal 1.005-<=1.0 25 [facility] Comment on above: Performed By: #### U AMIC ####[facility] [address] [place] [address]DrJailene Beauchamp UA PROTEIN Negative Normal NEGATIVE/ TRACE [facility] Comment on above: Performed By: #### U AMIC ####[facility] [address] [place] [address]DrJailene Beauchamp Urobilinogen Qn (U) 0.2 {Martha'U}/dL Normal 0.2 - 1. 0 [facility] Comment on above: Performed By: #### U AMIC ####[facility] [address] [place] [address]DrJailene Beauchamp WBC 2-5 Abnormal NONE SEEN The [facility] Comment on above: Performed By: #### U AMIC ####[facility] [id number] [place] [address]DrJailene Beauchamp AMYLASEon 05-30-2022 Amylase [Catalytic activity/Vol] 82 U/L Normal 25-115 [facility] Comment on above: Performed By: #### L IPA, BONG, CMP #### [facility] [address] [address] [address] Nish Beauchamp CBC AUTO DIFFon 05-30-2022 BASO # 0.1 103/ul Normal 0.0-0.1 [facility] Comment on above: Performed By: #### C BC #### [facility] [address] [place] [address] Dr. Nish Beauchamp Basophils/100 WBC (Bld) 1.1 % Normal 0.2-2.0 [facility] Comment on above: Performed By: #### C BC #### [facility] [address] [place] [address] Dr. Nish Beauchamp EO # 0.2 103/ul Normal 0.0-0.7 [facility] Comment on above: Performed By: #### C BC #### [facility] [address] [place] [address] Dr. Nish Beauchamp Eosinophils/100 WBC (Bld) 4.3 % Normal 0.9-7.0 [facility] Comment on above: Performed By: #### C BC #### [facility] [address] [place] [address] Dr. Nish Beauchamp Erythrocyte distribution width (RBC) [Ratio] 12.4 % Normal 11.0-15.0 [facility] Comment on above: Performed By: #### C BC #### [facility] [address] [place] [address] Dr. Nish Beauchamp Hematocrit (Bld) [Volume fraction] 42.5 % Normal 36.0-48.0 [facility] Comment on above: Performed By: #### C BC #### [facility] [address] [place] [address] Dr. Nish Beauchamp Hemoglobin (Bld) [Mass/Vol] 13.7 g/dL Normal 12.0-16.0 [facility] Comment on above: Performed By: #### C BC #### [facility] [address] [place] [address] Dr. Nish Beauchamp IG # 0.02 10e3/ul Normal 0.00-0.03 [facility] Comment on above: Performed By: #### C BC #### [facility] [address] [place] [address] Dr. Nish Beauchamp IG % 0.4 % Normal 0.0-0.5 [facility] Comment on above: Performed By: #### C BC #### [facility] [address] [place] [address] Dr. Nish Beauchamp LYMPH # 1.9 103/ul Normal 1.2-3.8 [facility] Comment on above: Performed By: #### C BC #### [facility] [address] [place] [address] Dr. Nish Beauchamp Lymphocytes/100 WBC (Bld) 35.0 % Normal 20.5-60.0 [facility] Comment on above: Performed By: #### C BC #### [facility] [address] [place] [address] Dr. Nish Beauchamp MANUAL DIFF REQ NO Normal [facility] Comment on above: Performed By: #### C BC #### [facility] [address] [place] [address] Dr. Nish Beauchamp MCH (RBC) [Entitic mass] 30.5 pg Normal 26.7-34.0 [facility] Comment on above: Performed By: #### C BC #### [facility] [address] [place] [address] Dr. Nish Beauchamp MCHC (RBC) [Mass/Vol] 32.2 g/dL Normal 29.9-35.2 [facility] Comment on above: Performed By: #### C BC #### [facility] [address] [place] [address] Dr. Nish Beauchamp MCV (RBC) [Entitic vol] 94.7 fL Normal 81.0-99.0 [facility] Comment on above: Performed By: #### C BC #### [facility] [address] [place] [address] Dr. Nish Beauchamp MONO # 0.5 103/ul Normal 0.3-0.8 [facility] Comment on above: Performed By: #### C BC #### [facility] [address] [place] [address] Dr. Nish Beauchamp Monocytes/100 WBC (Bld) 8.8 % Normal 1.7-12.0 [facility] Comment on above: Performed By: #### C BC #### [facility] [address] [place] [address] Dr. Nish Beauchamp NEUT # 2.7 103/ul Normal 1.4-6.5 [facility] Comment on above: Performed By: #### C BC #### [facility] [address] [place] [address] Dr. Nish Beauchamp Neutrophils/100 WBC (Bld) 50.4 % Normal 43.0-75.0 [facility] Comment on above: Performed By: #### C BC #### [facility] [address] [place] [address] Dr. Nish Beauchamp Platelet mean volume (Bld) [Entitic vol] 10.6 fL Normal 9.5-13.5 [facility] Comment on above: Performed By: #### C BC #### [facility] [address] [place] [address] Dr. Nish Beauchamp PLT 288 103/ul Normal 150-450 [facility] Comment on above: Performed By: #### C BC #### [facility] [address] [place] [address] Dr. Nish Beauchamp RBC 4.49 106/ul Normal 4.20-5.40 [facility] Comment on above: Performed By: #### C BC #### [facility] [address] [place] [address] Dr. Nish Beauchamp WBC 5.3 103/ul Normal 4.0-11.0 [facility] Comment on above: Performed By: #### C BC #### [facility] [address] [place] [address] Dr. Nish Beauchamp LIPASEon 05-30-2022 Lipase [Catalytic activity/Vol] 261.0 U/L Normal 73.0-393.0 [facility] Comment on above: Performed By: #### L IPA, BONG, CMP #### [facility] [address] [place] [address] Dr. Nish Beauchamp PROF 14(COMP METB)on 022 Albumin [Mass/Vol] 4.0 g/dL Normal 3.4-5.0 [facility] Comment on above: Performed By: #### L BONG BACA, CMP #### [facility] [address] [address] [address] Nish Beauchamp Albumin/Globulin [Mass ratio] 1.1 {ratio} Normal [facility] Comment on above: Performed By: #### L BONG BACA, CMP #### [facility] [address] [address] [address] Nish Beauchamp ALP [Catalytic activity/Vol] 75 U/L Normal 46-116 [facility] Comment on above: Performed By: #### L BONG BACA, CMP #### [facility] [address] [address] [address] Nish Beauchamp ALT [Catalytic activity/Vol] 29 U/L Normal 14-59 [facility] Comment on above: Performed By: #### L BONG BACA, CMP #### [facility] [address] [address] [address] Nish Beauchamp Anion gap [Moles/Vol] 11.1 mmol/L Normal [facility] Comment on above: Performed By: #### L BONG BACA, CMP #### [facility] [address] [place] [address] Dr. Nish Beauchamp AST [Catalytic activity/Vol] 19 U/L Normal 15-37 [facility] Comment on above: Performed By: #### L BONG BACA, CMP #### [facility] [address] [address] [address] Nish Beauchamp Bilirubin [Mass/Vol] 0.2 mg/dL Normal 0.2-1.0 [facility] Comment on above: Performed By: #### L BONG BACA, CMP #### [facility] [address] [address] [address] Nish Beauchamp Calcium [Mass/Vol] 9.2 mg/dL Normal 8.5-10.1 [facility] Comment on above: Performed By: #### L BONG BACA, CMP #### [facility] [address] [address] [address] Nish Beauchamp Chloride [Moles/Vol] 105 mmol/L Normal 98-107 [facility] Comment on above: Performed By: #### L BONG BACA, CMP #### [facility] [address] [address] [address] Nish Beauchamp CO2 [Moles/Vol] 29.0 mmol/L Normal 21.0-32.0 [facility] Comment on above: Performed By: #### L BONG BACA, CMP #### [facility] [address] [address] [address] Nish Beauchamp Creatinine [Mass/Vol] 0.86 mg/dL Normal 0.55-1.02 [facility] Comment on above: Performed By: #### L BONG BACA, CMP #### [facility] [address] [address] [address] Nish Beauchamp EGFR-AF SLOVAK >60 Normal >=60 [facility] Comment on above: Performed By: #### L BONG BACA, CMP #### [facility] [address] [address] [address] Nish Beauchamp EGFR-NON AF SLOVAK >60 Normal >=60 [facility] Comment on above: Performed By: #### L BONG BACA, CMP #### [facility] [address] [address] [address] Nish Beauchamp Globulin (S) [Mass/Vol] 3.7 g/dL Normal [facility] Comment on above: Performed By: #### L BONG BACA, CMP #### [facility] [address] [address] [address] Nish Beauchamp Glucose [Mass/Vol] 106 mg/dL Normal 74-106 [facility] Comment on above: Performed By: #### L BONG BACA, CMP #### [facility] [address] [address] [address] Nish Beauchamp Potassium [Moles/Vol] 4.1 mmol/L Normal 3.5-5.1 [facility] Comment on above: Performed By: #### L BONG BACA, CMP #### [facility] [address] [address] [address] Nish Beauchamp Protein [Mass/Vol] 7.7 g/dL Normal 6.4-8.2 [facility] Comment on above: Performed By: #### L BONG BACA, CMP #### [facility] [address] [address] [address] Nish Beauchamp Sodium [Moles/Vol] 141 mmol/L Normal 136-145 [facility] Comment on above: Performed By: #### L BONG BACA, CMP #### [facility] [address] [address] [address] Nish Beauchamp Urea nitrogen [Mass/Vol] 19.0 mg/dL Critically high 7.0-18.0 [facility] Comment on above: Performed By: #### L BONG BACA, CMP #### [facility] [address] [address] [address] Nish Beauchamp Urea nitrogen/Creatinine [Mass ratio] 22.1 mg/mg Normal [facility] Comment on above: Performed By: #### L BONG BACA, CMP #### [facility] [address] [address] [address] Nish Beauchamp UA RANDOM W/MICROSCOPICon BACTERIA SMALL Abnormal NONE SEEN [facility] Comment on above: Performed By: #### U AMIC ####[facility] [address] [place] [address]DrJailene Beauchamp Bilirubin Ql (U) Negative Normal NEGATIVE [facility] Comment on above: Performed By: #### U AMIC ####[facility] [id number] [place] [address]DrJailene Beauchamp CAST NONE SEEN Normal NONE SEEN [facility] Comment on above: Performed By: #### U AMIC ####[facility] [id number] [place] [address]DrJailene Beauchamp Clarity (U) CLEAR Normal CLEAR [facility] Comment on above: Performed By: #### U AMIC ####[facility] [id number] [address]DrJailene Beauchamp Color (U) LT. YELLOW Normal YELLOW [facility] Comment on above: Performed By: #### U AMIC ####[facility] [id number] [place] [address]Dr. Nish Beauchamp Crystals LM Nom (Urine sed) NONE SEEN Normal NONE SEEN [facility] Comment on above: Performed By: #### U AMIC ####[facility] [id number] [id number]. Nish Beauchamp Epithelial cells LM Ql (Urine sed) MODERATE Abnormal NONE SEEN /RARE [facility] Comment on above: Performed By: #### U AMIC ####[facility] [address] [place] [address]Dr. Nish Beauchamp Glucose Ql (U) Negative Normal NEGATIVE [facility] Comment on above: Performed By: #### U AMIC ####[facility] [address] [place] [address]Dr. Nish Beauchamp Hemoglobin Ql (U) SMALL Abnormal NEGATIVE The [facility] Comment on above: Performed By: #### U AMIC ####[facility] [address] [address]Dr. Nish Beauchamp Ketones Ql (U) Negative Normal NEGATIVE [facility] Comment on above: Performed By: #### U AMIC ####[facility] [address] [place] [address]Dr. Nish Beauchamp LEUKOCYTES TRACE Abnormal NEGATIVE [facility] Comment on above: Performed By: #### U AMIC ####[facility] [address] [id number]. Nish Beauchamp MUCOUS NONE SEEN Normal NONE SEEN [facility] Comment on above: Performed By: #### U AMIC ####[facility] [address] [place] [address]Dr. Nish Beauchamp Nitrite Ql (U) Negative Normal NEGATIVE [facility] Comment on above: Performed By: #### U AMIC ####[facility] [id number] [id number]. Nish Beauchamp pH (U) 5.5 [pH] Normal 5-9 [facility] Comment on above: Performed By: #### U AMIC ####[facility] [address] [place] [id number]. Nish Beauchamp RBC 2-5 Abnormal 0-2 [facility] Comment on above: Performed By: #### U AMIC ####[facility] [address] [place], [place] [address]Fn. Nish Beauchamp SPEC GRAVITY >=1.030 Abnormal 1.005-<=1.0 25 [facility] Comment on above: Performed By: #### U AMIC ####[facility] [address] [id number]. Nish Beauchamp UA PROTEIN Negative Normal NEGATIVE/ TRACE [facility] Comment on above: Performed By: #### U AMIC ####[facility] [address] [id number]. Nish Beauchamp Urobilinogen Qn (U) 0.2 {Martha'U}/dL Normal 0.2 - 1. 0 [facility] Comment on above: Performed By: #### U AMIC ####[facility] [address] [id number]. Nish Beauchamp WBC 2-5 Abnormal NONE SEEN [facility] Comment on above: Performed By: #### U AMIC ####[facility] [id number]. Nish Beauchamp CT ABDOMEN WO/W CONon 2021 [...] by: LOREN WHEATLEY Date: 2022-05-21 08:55 Normal [facility] US SINGLE QUAD RT UPPERon [...] by: LOREN WHEATLEY Date: 2022-05-19 08:42 Normal [facility] MG MAMM DX 3D RT CADon 01-22 MG MAMM DX 3D RT CAD Patient: RADHA DAVIDSON Exam Date: 01/22/2022 : 1970 Gender:F Ordering : ALVIN SCHROEDER CNP Admission #: [id number] Family : Order #: [id number] CLICK HERE TO VIEW EXAM RADIOLOGY REPORT [...] No Treatments None Family Cancers None LOCATION: [facility] BREAST COMPOSITION: Heterogeneously dense,which may [...] Wheatley M.D. on 01/22/2022 at 10:17 Normal [facility] Vital Signs Date Time Vital Sign Value Performing Clinician Facility 06-21-2024 08:0400 Body height 154.94 cm [facility] 06-21-2024 08:270400 Body mass index (BMI) [Ratio] 32.3 kg/m2 [facility] 06-21-2024 08:270400 Body temperature 95.9 [degF] [facility] 06-21-2024 08:270400 Body weight 77.62 kg [facility] 06-21-2024 08:270400 Diastolic blood pressure 86 mm[Hg] [facility] 06-21-2024 08:270400 Heart rate 106 /min [facility] 06-21-2024 08:27-0400 SaO2% (BldA) [Mass fraction] 94 % [facility] 06-21-2024 08:27-0400 Systolic blood pressure 122 mm[Hg] [facility] 04-19-2024 09:04-0400 Body mass index (BMI) [Ratio] 31.32 kg/m2 Tim Plaza MD Work Phone: [facility] 04-19-2024 09:04-0400 Body weight 75.2 kg Tim Plaza MD Work Phone: [facility] 04-19-2024 09:04-0400 Diastolic blood pressure 82 mm[Hg] Tim Plaza MD Work Phone: [facility] 04-19-2024 09:04-0400 Heart rate 91 /min Tim Plaza MD Work Phone: [facility] 04-19-2024 09:04-0400 SaO2% (BldA) [Mass fraction] 99 % Tim Plaza MD Work Phone: [facility] 04-19-2024 09:04-0400 Systolic blood pressure 135 mm[Hg] Tim Plaza MD Work Phone: [facility] 04-04-2024 09:57-0400 Body height 154.94 cm LAUREN Lawson Work Phone: [facility] 04-04-2024 09:57-0400 Body mass index (BMI) [Ratio] 31.1 kg/m2 LAUREN Lawson Work Phone: [facility] 04-04-2024 09:57-0400 Body weight 74.84 kg LAUREN Lawson Work Phone: [facility] 04-04-2024 09:57-0400 Diastolic blood pressure 80 mm[Hg] LAUREN Lawson Work Phone: [facility] 04-04-2024 09:57-0400 Heart rate 96 /min LAUREN Lawson Work Phone: [facility] 04-04-2024 09:57-0400 SaO2% (BldA) [Mass fraction] 98 % LAUREN Lawson Work Phone: [facility] 04-04-2024 09:57-0400 Systolic blood pressure 132 mm[Hg] LAUREN Light Lulu Work Phone: [facility] 03-23-2024 09:18-0400 Body height 154.9 cm [facility] 03-23-2024 09:18-0400 Body mass index (BMI) [Ratio] 30.99 kg/m2 [facility] 03-23-2024 09:18-0400 Body weight 74.39 kg [facility] 03-23-2024 09:18-0400 Diastolic blood pressure 78 mm[Hg] [facility] 03-23-2024 09:18-0400 Systolic blood pressure 120 mm[Hg] [facility] 03-07-2024 08:32-0400 Body height 154.94 cm [facility] 03-07-2024 08:32-0400 Body mass index (BMI) [Ratio] 31.1 kg/m2 [facility] 03-07-2024 08:32-0400 Body weight 74.84 kg [facility] 03-07-2024 08:32-0400 Diastolic blood pressure 78 mm[Hg] [facility] 03-07-2024 08:32-0400 Heart rate 81 /min [facility] 03-07-2024 08:32-0400 SaO2% (BldA) [Mass fraction] 100 % [facility] 03-07-2024 08:32-0400 Systolic blood pressure 122 mm[Hg] [facility] 01-27-2024 09:31-0400 Body height 154.94 cm [facility] 01-27-2024 09:31-0400 Body mass index (BMI) [Ratio] 31.1 kg/m2 [facility] 01-27-2024 09:31-0400 Body weight 74.84 kg [facility] 01-27-2024 09:31-0400 Diastolic blood pressure 76 mm[Hg] [facility] 01-27-2024 09:31-0400 Heart rate 96 /min [facility] 01-27-2024 09:31-0400 SaO2% (BldA) [Mass fraction] 98 % [facility] 01-27-2024 09:31-0400 Systolic blood pressure 124 mm[Hg] [facility] 01-12-2024 08:26-0400 Body height 154.94 cm [facility] 01-12-2024 08:26-0400 Body mass index (BMI) [Ratio] 31.1 kg/m2 [facility] 01-12-2024 08:26-0400 Body weight 74.84 kg [facility] 01-12-2024 08:26-0400 Diastolic blood pressure 76 mm[Hg] [facility] 01-12-2024 08:26-0400 Heart rate 103 /min [facility] 01-12-2024 08:26-0400 SaO2% (BldA) [Mass fraction] 97 % [facility] 01-12-2024 08:26-0400 Systolic blood pressure 120 mm[Hg] [facility] 01-06-2024 09:35-0400 Body height 154.9 cm Tim Plaza MD Work Phone: [facility] 01-06-2024 09:35-0400 Body mass index (BMI) [Ratio] 31.24 kg/m2 Tim Plaza MD Work Phone: [facility] 01-06-2024 09:35-0400 Body weight 75 kg Tim Plaza MD Work Phone: [facility] 01-06-2024 09:35-0400 Diastolic blood pressure 74 mm[Hg] Tim Plaza MD Work Phone: [facility] 01-06-2024 09:35-0400 Heart rate 85 /min Tim Plaza MD Work Phone: [facility] 01-06-2024 09:35-0400 Systolic blood pressure 130 mm[Hg] Tim Plaza MD Work Phone: [facility] 12-15-2023 07:49-0400 Body height 154.94 cm [facility] 12-15-2023 07:49-0400 Body mass index (BMI) [Ratio] 30.9 kg/m2 [facility] 12-15-2023 07:49-0400 Body weight 74.38 kg [facility] 12-15-2023 07:49-0400 Diastolic blood pressure 86 mm[Hg] [facility] 12-15-2023 07:49-0400 Heart rate 104 /min [facility] 12-15-2023 07:49-0400 Systolic blood pressure 122 mm[Hg] [facility] 11-10-2023 08:01-0400 Body height 154.94 cm [facility] 11-10-2023 08:01-0400 Body mass index (BMI) [Ratio] 31.5 kg/m2 [facility] 11-10-2023 08:01-0400 Body weight 75.74 kg [facility] 11-10-2023 08:01-0400 Diastolic blood pressure 86 mm[Hg] [facility] 11-10-2023 08:01-0400 Heart rate 80 /min [facility] 11-10-2023 08:01-0400 SaO2% (BldA) [Mass fraction] 98 % [facility] 11-10-2023 08:01-0400 Systolic blood pressure 124 mm[Hg] [facility] 10-13-2023 13:07-0500 Body height 154.94 cm [facility] 10-13-2023 13:07-0500 Body mass index (BMI) [Ratio] 31.7 kg/m2 [facility] 10-13-2023 13:07-0500 Body weight 76.2 kg [facility] 10-13-2023 13:07-0500 Diastolic blood pressure 76 mm[Hg] [facility] 10-13-2023 13:07-0500 Heart rate 87 /min [facility] 10-13-2023 13:07-0500 SaO2% (BldA) [Mass fraction] 98 % [facility] 10-13-2023 13:07-0500 Systolic blood pressure 114 mm[Hg] [facility] 09-30-2023 12:53-0500 Body height 154.9 cm 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 Work Phone: [facility] 09-30-2023 12:53-0500 Body temperature 98.6 [degF] 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 Work Phone: [facility] 09-30-2023 12:53-0500 Body weight 73.94 kg 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 Work Phone: [facility] 09-30-2023 12:53-0500 Diastolic blood pressure 80 mm[Hg] 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 Work Phone: [facility] 09-30-2023 12:53-0500 Heart rate 78 /min 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 Work Phone: [facility] 09-30-2023 12:53-0500 SaO2% (BldA) [Mass fraction] 100 % 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 Work Phone: [facility] 09-30-2023 12:53-0500 Systolic blood pressure 125 mm[Hg] 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 Work Phone: [facility] 07-23-2023 09:39-0500 Blood Pressure Location Roxann HUTCHINS [facility] [place] 07-23-2023 09:39-0500 Diastolic blood pressure 88 mm[Hg] Roxann HUTCHINS [facility] [place] 07-23-2023 09:39-0500 Heart rate 88 /min Roxann HUTCHINS [facility] [place] 07-23-2023 09:39-0500 Respiratory rate 16 /min Roxann HUTCHINS [facility] [place] 07-23-2023 09:39-0500 Systolic blood pressure 140 mm[Hg] Roxann HUTCHINS [facility] [place] 07-11-2023 12:15-0500 Body height 154.94 cm Dayanara Jay Other [employer] Other 07-11-2023 12:15-0500 Body mass index (BMI) [Ratio] 32.57 kg/m2 Dayanara Thompson Other [employer] Other 07-11-2023 12:15-0500 Body temperature 98.7 [degF] Dayanara Thompson Other [employer] Other 07-11-2023 12:15-0500 Body weight 78.2 kg Dayanara Thompson Other [employer] Other 07-11-2023 12:15-0500 Respiratory rate 18 /min Dayanara Thompson Other [employer] Other 07-11-2023 12:15-0500 SaO2% (BldA) [Mass fraction] 99 % Dayanara Thompson Other [employer] Other 05-31-2023 14:20-0400 Body height 154.94 cm Rylee Barrientos Other [employer] Other 05-31-2023 14:20-0400 Body mass index (BMI) [Ratio] 31.89 kg/m2 Rylee Barrientos Other [employer] Other 05-31-2023 14:20-0400 Body temperature 97.5 [degF] Rylee Barrientos Other [employer] Other 05-31-2023 14:20-0400 Body weight 76.57 kg Rylee Iliana Other [employer] Other 05-31-2023 14:20-0400 Diastolic blood pressure 82 mm[Hg] Rylee Iliana Other [employer] Other 05-31-2023 14:20-0400 Respiratory rate 18 /min Rylee Iliana Other [employer] Other 05-31-2023 14:20-0400 SaO2% (BldA) [Mass fraction] 99 % Rylee Iliana Other [employer] Other 05-31-2023 14:20-0400 Systolic blood pressure 125 mm[Hg] Rylee Iliana Other [employer] Other Encounters Encounter Date Encounter Type Care Provider Facility Start: 06-21-2024 End: 06-21-2024 Departed Referred [employer] Nadege Lawson Work Phone: [facility] Work Phone: Start: 06-21-2024 End: 06-21-2024 ambulatory Nadege Lawson [facility] Work Phone: Start: 06-21-2024 End: 06-21-2024 [facility] Start: 04-19-2024 Non-patient / Non-visit [facility] Professional [facility] Work Phone: Start: 04-19-2024 End: 04-19-2024 ambulatory TIM PLAZA Facility:[facility] Start: 04-19-2024 End: 04-19-2024 Office outpatient visit 15 minutes Tim Plaza MD Work Phone: Rheumatology Comment on above: Ds DNA antibody posi tive (Primary Dx) Start: 04-04-2024 End: 04-04-2024 ambulatory FAIRING MANAnna RivasNadegecornelio Lawson Work Phone: [facility] Work Phone: Start: 04-04-2024 End: 04-04-2024 Patient encounter procedure [employer] Nadege Lulu Work Phone: [facility] Work Phone: Start: 03-23-2024 End: 03-23-2024 Initial preventive medicine new patient 40-64yrs [facility] Wellness Consultant [facility] [facility] [place] Comment on above: Well woman exam with routine gynecological exam (Primary Dx); Cervical smear, as part of routine gynecological examination; Standardized adult depression screening tool completed; Screening for colon cancer Start: 03-23-2024 End: 03-23-2024 Patient encounter procedure [facility] Wellness Consultant [facility] Start: 03-23-2024 End: 03-23-2024 ambulatory [facility] Start: 03-23-2024 End: 03-23-2024 Encounter for gynecological examination (general) (routine) without abnormal findings [facility] Wellness Consultant [facility] Work Phone: Start: 03-23-2024 End: 03-23-2024 ambulatory [facility] Start: 03-23-2024 Encounter for gynecological examination (general) (routine) without abnormal findings [facility] Start: 03-07-2024 End: 03-07-2024 Departed Referred LAUREN Lawson Work Phone: [facility] [place] Work Phone: Start: 03-07-2024 End: 03-07-2024 ambulatory LAUREN Lawson Work Phone: [facility] Work Phone: Start: 03-07-2024 End: 03-07-2024 Patient encounter procedure [facility] Work Phone: Start: 01-27-2024 End: 01-27-2024 ambulatory [facility] Work Phone: Start: 01-27-2024 End: 01-27-2024 Patient encounter procedure [facility] Physician [facility] Work Phone: Start: 01-15-2024 End: 01-15-2024 ambulatory Tim Plaza MD Work Phone: Rheumatology Comment on above: Ds DNA antibody posi tive (Primary Dx); Polyarthralgia; Positive ALONDRA (antinuclear antibody); Chronic pain syndrome Start: 01-15-2024 End: 01-15-2024 Telemedicine consultation with patient Tim Plaza MD Work Phone: Rheumatology Start: 01-12-2024 End: 01-12-2024 ambulatory [facility] Work Phone: Start: 01-12-2024 End: 01-12-2024 Patient encounter procedure [facility] Work Phone: Start: 01-06-2024 End: 01-06-2024 ambulatory Yamil Talisha RT(R) Radiology Comment on above: Radiology XR Start: 01-06-2024 Patient encounter procedure Yamil Talisha RT(R) Radiology Start: 01-06-2024 Non-patient / Non-visit [facility] Work Phone: Start: 01-06-2024 End: 01-06-2024 Subsequent hospital visit by physician Xr [facility] Radiology Comment on above: Polyarthralgia [M25. 50] Start: 01-06-2024 End: 01-06-2024 Office consultation new/estab patient 80 min Tim Plaza MD Work Phone: Rheumatology Comment on above: Polyarthralgia (Prim temi Dx); Positive ALONDRA (antinuclear antibody); Chronic pain syndrome; Dry mouth Start: 12-23-2023 Non-patient / Non-visit [facility] Work Phone: Start: 12-15-2023 End: 12-15-2023 ambulatory [facility] Work Phone: Start: 12-15-2023 End: 12-15-2023 Patient encounter procedure [facility] Physician [facility] Work Phone: Start: 11-10-2023 End: 11-10-2023 ambulatory [facility] Work Phone: Start: 11-10-2023 End: 11-10-2023 Patient encounter procedure [facility] Work Phone: Start: 10-16-2023 Non-patient / Non-visit [facility] Work Phone: Start: 10-13-2023 Telephone encounter Ute betancourt MD Work Phone: General Surgery Comment on above: Fit for duty letter Start: 10-13-2023 End: 10-13-2023 ambulatory [facility] Work Phone: Start: 10-13-2023 End: 10-13-2023 Patient encounter procedure [facility] Work Phone: Start: 10-05-2023 Telephone encounter Ute betancourt MD Work Phone: General Surgery Comment on above: return to work fitne ss form Start: 09-30-2023 End: 09-30-2023 Patient encounter procedure 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 FAIRING 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 Work Phone: General Surgery Comment on above: S/P gastrointestinal surgery, follow-up exam (Primary Dx); S/P laparoscopic cholecystectomy Start: 09-30-2023 End: 09-30-2023 ambulatory MEREDITH BLANCO Facility:[facility] Start: 09-23-2023 Telephone encounter Ute betancourt MD Work Phone: General Surgery Comment on above: FMLA Paperwork Start: 09-16-2023 End: 09-16-2023 ambulatory UTE HART Facility[facility] Start: 09-12-2023 End: 09-12-2023 ambulatory MARRY SCHROEDER Facility:[facility] Start: 09-10-2023 Encounter for other preprocedural examination MARRY SCHROEDER [facility] Start: 09-10-2023 End: 09-10-2023 ambulatory MARRY SCHROEDER Facility:[facility] Start: 09-04-2023 End: 09-04-2023 ambulatory UTE HART Facility:[facility] Start: 08-21-2023 End: 08-21-2023 ambulatory MEREDITH BLANCO Facility:[facility] Start: 08-21-2023 End: 08-21-2023 Subsequent hospital visit by physician Arrival Time Radiology Work Phone: Radiology Pet CT Comment on above: Calculus of gallblad heladio without cholecystitis without obstruction [K80.20] Start: 07-27-2023 Telephone encounter Ute betancourt MD Work Phone: General Surgery Comment on above: Consult Start: 07-23-2023 End: 07-24-2023 ambulatory Roxann HUTCHINS Facility:[facility] Start: 07-23-2023 End: 07-23-2023 Patient encounter procedure Roxann R DEVONTEL [facility] General Surgery [place] Start: 07-20-2023 ambulatory Roxann WHITNEYL Facility:[facility] Start: 07-14-2023 End: 07-14-2023 ambulatory Dayanara Thompson Other [employer] Other Start: 07-14-2023 Telephone encounter Dayanara Thompson [facility] [address] Start: 07-11-2023 Office outpatient vi sit 15 minutes Dayanara Thompson [facility] Start: 07-11-2023 End: 07-11-2023 ambulatory DNP Nadege Aly Work Phone: [facility] Work Phone: Start: 07-11-2023 End: 07-11-2023 Departed Referred DNP Nadege Aly Work Phone: [facility] [place] Work Phone: Start: 05-31-2023 End: 05-31-2023 ambulatory Rylee Iliana Other [facility] [employer] Other Start: 05-31-2023 Office outpatient ne w 20 minutes Rylee Barrientos [facility] Start: 10-04-2022 End: 10-05-2022 ambulatory 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 MARRY AICHHOLZ Facility:[facility] Start: 08-05-2022 End: 08-06-2022 ambulatory 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 MARRY AICHHOLZ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 pelvic pain. 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 Vaginal Bleeding none Hot flashes / menopausal symptoms - None Bladder issues - None Bowel issues - None History of abnormal Pap smear: no Last pap: 5 years ago-neg Family history of uterine or ovarian cancer: no Family hx pancreatic or prostate cancer: yes - father pancreatic Family history of colon cancer: no Family history of breast cancer: yes - sister age 40s Regular self breast exam: yes Last mammogram: August at [facility] Dexa Scan: NA Colonoscopy / Cologuard: no, interested in cologuard PHQ9 depression screenin OB History 2 Para 2 Term AB Living SAB IAB Ectopic Multiple Live Births Past Medical History: Diagnosis Date Acid reflux Asthma Depression Past Surgical History: Procedure Laterality Date ADENOIDECTOMY BREAST BIOPSY CHOLECYSTECTOMY ENDOMETRIAL ABLATION TONSILLECTOMY Family History Problem Relation Age of Onset Diabetes Father Pancreatic cancer Father Hypertension Mother Diabetes Mother Breast cancer Sister BRCA 1/2 Sister Current Outpatient Medications Medication Sig Dispense Refill albuterol-budesonide 90-80 mcg/actuation HFA aerosol inhaler Albuterol buPROPion XL (WELLBUTRIN XL) 150 mg 24 hr tablet Take 1 tablet (150 mg total) by mouth every morning. celecoxib (CeleBREX) 100 mg capsule Take 1 capsule (100 mg total) by mouth daily as needed. citalopram (CeleXA) 40 mg tablet Take 1 tablet (40 mg total) by mouth in the morning. cyanocobalamin (vitamin B-12) 100 MCG tablet Take 1 tablet (100 mcg total) by mouth in the morning. cycloSPORINE 0.05 % drops Twice daily montelukast (SINGULAIR) 10 mg tablet Take 1 tablet (10 mg total) by mouth nightly. omeprazole (PriLOSEC) 40 mg capsule Take 1 capsule (40 mg total) by mouth every morning before breakfast. phentermine 37.5 MG capsule Take 1 capsule (37.5 mg total) by mouth every morning. traZODone (DESYREL) 50 mg tablet Take 3 tablets (150 mg total) by mouth nightly. No current facility-administered medications for this visit. ALLERGIES Allergies Allergen Reactions Other IVP DYE Sulfa (Sulfonamide Antibiotics) Rash Review of Systems Constitutional: Negative. Respiratory: Negative. Negative for chest tightness and shortness of breath. Cardiovascular: Negative. Negative for chest pain and palpitations. Gastrointestinal: Negative. Negative for constipation, diarrhea, nausea and vomiting. Endocrine: Negative. Genitourinary: Negative. Negative for dyspareunia, pelvic pain and vaginal bleeding. Musculoskeletal: Negative. Skin: Negative. Allergic/Immunologic: Negative. Neurological: Negative. Hematological: Negative. Psychiatric/Behavioral: Negative. Physical Exam BP 120/78 Ht 154.9 cm (5' 1 ) Wt 74.4 kg (164 lb) BMI 30.99 kg/m Physical Exam Vitals and nursing note reviewed. Constitutional: Appearance: Normal appearance. HENT: Head: Normocephalic and atraumatic. Cardiovascular: Rate and Rhythm: Normal rate and regular rhythm. Pulses: Normal pulses. Heart sounds: Normal heart sounds. Pulmonary: Effort: Pulmonary effort is normal. Breath sounds: Normal breath sounds. Chest: Breasts: Breasts are symmetrical. Right: Normal. No mass, skin change or tenderness. Left: Normal. No mass, skin change or tenderness. Abdominal: General: Bowel sounds are normal. Palpations: Abdomen is soft. Genitourinary: General: Normal vulva. Labia: Right: No rash or lesion. Left: No rash or lesion. Vagina: Normal. Cervix: Normal. Uterus: Normal. Not enlarged and not tender. Adnexa: Right adnexa normal and left adnexa normal. Right: No mass, tenderness or fullness. Left: No mass, tenderness or fullness. Musculoskeletal: General: Normal range of motion. Cervical back: Normal range of motion and neck supple. Skin: General: Skin is warm and dry. Neurological: Mental Status: She is alert and oriented to person, place, and time. Psychiatric: Mood and Affect: Mood normal. Speech: Speech normal. Behavior: Behavior normal. Thought Content: Thought content normal. Judgment: Judgment normal. Assessment / Plan Stacie was seen today for gynecologic exam. Diagnoses and all orders for this visit: Well woman exam with routine gynecological exam Cervical smear, as part of routine gynecological examination - Pap Smear; Future - High risk HPV w/letty; Future Standardized adult depression screening tool completed Screening for colon cancer - Cologuard Non-[facility] Discussed hereditary cancer screening. Patient will consider. Await pap. Discussed ASCCP screening guidelines. BMI is above average; Discussed eating tips for weight loss and and exercise steps. Discussed SBE. Discussed taking a multivitamin. Discussed Calcium and Vitamin D for prevention of osteoporosis. Discussed need for yearly mammogram after 40 yo. Cologuard ordered. Educational material provided. All questions answered. RTO for annual swatcher exam and / or PRN. BLAYNE Seay APRN-CNP 03/23/24 1005 documented in this encounter [facility] 01-15-2024 Note HNO ID: [id number] Author: TIM PLAZA MD Service: ? Author Type: Physician Type: Progress Notes Filed: 01/15/2024 09:34 Note Text: Rheumatology Outpatient Clinic Date of Service: 01/15/2024 Patient: Stacie Davidson Medical Record: [id number] Primary Care Physician: Marry Schroeder CNP, CNP Referring Provider: Marry Schroeder CNP ([facility]) [address] [facility] [address] Last Rheumatology visit: 01/06/2024 (with Tim Plaza) Chief complaint: Follow Up The patient's identity and physical location were verified at the time of this visit. Either the patient or their legal inside sales account representative has been informed of the risks [...] swelling GENITOURINARY: HEMATOL (more content not included)... [facility] 01-15-2024 History of Present illness Narrative Images from the original note were not included. Rheumatology Outpatient Clinic Date of Service: 01/15/2024 Patient: Stacie Davidson Medical Record: [id number] Primary Care Physician: Marry Schroeder CNP, 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 Referring Provider: Marry Schroeder CNP ([facility]) [address] [place] [address] Last Rheumatology visit: 01/06/2024 (with Tim Plaza) Chief complaint: Follow Up The patient's identity and physical location were verified at the time of this visit. Either the patient or their legal inside sales account representative has been informed of the risks [...] AI <0.2 Sm Antibody Negative Negative Ribosomal GYROSCOPIC INSTRUMENT MECHANIC Ab <1.0 AI <0.2 Ribosomal GYROSCOPIC INSTRUMENT MECHANIC Qualitative Negative Negative Chromatin Ab <1.0 AI <0.2 Chromatin Ab Qual Negative Negative SSA Antibody Qual Negative Negative Anti-SSA <1.0 AI 0.3 Anti-SSB <1.0 AI <0.2 GYROSCOPIC INSTRUMENT MECHANIC Antibody QUAL Negative Negative Scleroderma Ab Qual [...] 1. Mild degenerative arthrosis of both hands. Loading Inspector: CLARY Transcribe Date/Time: Jan 06 2024 12:18P ... Last MRI Hand - Impression Only No resulted procedures found. Last XR Chest - Impression Only No resulted procedures found. Last XR Cervical Spine - Impression Only XR CERV OTHER 4V AP/LAT/OBL Exam End: 01/06/2024 11:04 AM (Final result) Impression: IMPRESSION: 1. Mild cervical spondylosis. 2. Cervical spine degenerative facet arthrosis. Loading Inspector: CLARY Transcribe Date/Time: Jan 06 2024 12:16P... Health Maintenance Current Immunizations Never Reviewed Name Date COVID-19 vaccine, monovalent ([employer]) 12/29/2020 , 12/08/2020 Physical Exam Phone visit [...] screening Defer to PCP Orders this visit: [facility] on 01/15/24 celecoxib (CELEBREX) 100 mg capsule Return in about 3 months (around 04/16/2024). I spent a total of 25 minutes on the date of the service This note was partially generated with the assistance of [email or web address] voice recognition software. An attempt was made to correct any dictation errors however there may be some incorrect words, spellings, and punctuation. ___ Tim Plaza MD, MSUS Rheumatology documented in this encounter [facility] 01-06-2024 Instructions Tim Plaza MD - [...] of screen time documented in this encounter [facility] 01-06-2024 Note HNO ID: [id number] Author: YAMIL JUÁREZ RT(R) Service: ? Author [...] PATIENT PRESENTS WITH AN IMPLANTABLE OR ATTACHED ETCHER PHOTOENGRAVING: No RADIOLOGY DEPARTMENT: General X-ray: Exam(s) Completed: [...] RT Shola(R) January 06, 2024 10:59 AM [facility] 01-06-2024 History of Present illness Narrative Radiology [...] PATIENT PRESENTS WITH AN IMPLANTABLE OR ATTACHED ETCHER PHOTOENGRAVING: No RADIOLOGY DEPARTMENT: General X-ray: Exam(s) Completed: [...] 2024 10:59 AM documented in this encounter [facility] 01-06-2024 History of Present illness Narrative Images from the original note were not included. Rheumatology Outpatient Clinic Date of Service: 01/06/2024 Patient: Stacie Davidson Medical Record: [id number] Primary Care Physician: Marry Schroeder CNP, CNP Referring Provider: Marry Schroeder CNP ([facility]) [address] [place] [address] Last Rheumatology visit: None at [facility] Chief complaint: Consult (Pos alondra test. ), [...] Never Reviewed Name Date COVID-19 vaccine, monovalent ([employer]) 12/29/2020 , 12/08/2020 Physical Exam VITAL SIGNS: [...] Full ROM in flexion and extension. Full websphere process server developer strength. No swelling or synovitis along the [...] which included preparing to see the patient, [id number] patient care, completing clinical documentation, obtaining and/or reviewing separately obtained history, performing a medically appropriate examination, counseling and educating the patient/family/caregiver, and ordering medications, tests, or procedures. This note was partially generated with the assistance of [email or web address] voice recognition software. An attempt was made to correct any dictation errors however there may be some incorrect words, spellings, and punctuation. ___ Tim Plaza MD, [facility] Rheumatology documented in this encounter [facility] 01-06-2024 Note HNO ID: [id number] Author: TIM PLAZA MD Service: ? Author Type: Physician Type: Progress Notes Filed: 01/06/2024 11:17 Note Text: Rheumatology Outpatient Clinic Date of Service: 01/06/2024 Patient: Stacie Davidson Medical Record: [id number] Primary Care Physician: Marry Schroeder CNP, CNP Referring Provider: Marry Schroeder CNP ([facility]) [address] [facility] [address] Last Rheumatology visit: None at [facility] Chief complaint: Consult (Pos alondra test. ), [...] Inhale by nebuli (more content not included)... [facility] 10-14-2023 Miscellaneous Notes Fit for work letter was typed out and faxed over to [facility]. Talked to patient and she said that is what they needed. Marilynn Romero MA Called again about letter Called and left a voicemail for her to let us know if she needs just a letter from office fit for duty or if there is a form that [place] has that needs to be filled out then it needs to be faxed over. Marilynn Romero MA Patient called again, requesting a letter stating that she is fit for duty for her job to be faxed. Attn: [place] disability. Fax number [phone]. Any questions please call patient at [phone], she can't go back to work until they receive something. Thank you! documented in this encounter [facility] 10-05-2023 Miscellaneous Notes There was not return to work fitness form in the packet. I faxed over the forms to [place] on 09/30/23. I left a vm on patients phone to let her know and that I can't upload them to her [employer] because she does not have one set up. Marilynn Romero MA Patient called needing a return to work fitness form. Any questions she can be reached at [phone] The form should be sent to [employer] [place], . Please also my chart her a copy. Thank You! documented in this encounter [facility] 09-30-2023 Miscellaneous Notes Employer Forms for Patient/Caregiver Time Off of Work Completed, signed by provider, and returned to below contact. Completed copy scanned in [employer] Date of Surgery: 09/16/23 Estimated RTW date: 10/19/23 Employer: [employer]. Faxed to the [place] Disability Date sent to employer: 09/30/23 Received fax confirmation: YES Received FMLA/STD paperwork on 09/23/23 Pending physician signature and completion. Surgeon: Dr. Hart Date of Surgery (if known): 09/16/23 documented in this encounter [facility] 09-30-2023 History of Present illness Narrative [...] restrictions. Paperwork completed Follow up: LISA Blanco APRN.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 documented in this encounter [facility] 09-30-2023 Note HNO ID: [id number] Author: MEREDITH BLANCO APRN.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 Service: ? Author Type: Nurse Practitioner Type: [...] Paperwork completed Follow up: LISA Blanco APRN.ALVIN [facility] 09-30-2023 Nurse Note What is the reason for your visit today? Post op follow up Lap cholecystectomy 09/16/23 Who is your referring physician? Dr Hutchins Are you having poor oral intake? NO Have you had unintentional weight loss of 15 lbs/7 Kg in the last 3-6 months? NO Bowels: regular Wound: clean & dry Temperature: No Drains: No documented in this encounter [facility] 09-16-2023 Note HNO ID: [id number] Author: JORDY DASILVA DO Service: Anesthesiology Author Type: Resident Type: Anesthesia Procedure Notes Filed: 09/16/2023 08:08 Note Text: Attestation signed by Jordy Dasilva DO at 09/16/2023 8:08 AM I saw and evaluated the patient. Discussed with the HOLTER TECHNICIAN/AA/resident and agree with findings and plan as [...] September 16, 2023 TIME: 8:04 AM CSN: [id number] [facility] 09-16-2023 Note HNO ID: [id number] Author: JORDY DASILVA DO Service: Anesthesiology Author Type: Resident Type: Anesthesia Procedure Notes Filed: 09/16/2023 08:08 Note Text: Attestation signed by Jordy Dasilva DO at 09/16/2023 8:08 AM I saw and evaluated the patient. Discussed with the HOLTER TECHNICIAN/AA/resident and agree with findings and plan as documented in the note. Jordy Dasilva DO September 16, 2023 8:08 AM ANESTHESIOLOGY PROCEDURE NOTE Airway General Information Procedure Start Time/Medication Administration: 09/16/2023 7:44 AM Patient location during procedure: OR Timeout Performed Pre-procedure: timeout performed Consent Obtained: Yes Patient identity confirmed: leobardo sotomayor, care lift team technician and patient sedated or unresponsive Staffing Anesthesiologist: [...] September 16, 2023 TIME: 8:02 AM CSN: [id number] [facility] 09-09-2023 History of Past i llness Narrative Problem Noted Date Diagnosed Date Resolved Date MARKY (obstructive sleep apnea) 09/09/2023 09/10/2023 documented as of this encounter (statuses as of 10/01/2023) [facility] History of Past illness Narrative* Problem Noted Date Diagnosed Date Resolved Date MARKY (obstructive sleep apnea) 09/09/2023 09/10/2023 documented as of this encounter (statuses as of 10/01/2023) [facility] History of Past illness Narrative* Problem Noted Date Diagnosed Date Resolved Date MARKY (obstructive sleep apnea) 09/09/2023 09/10/2023 documented as of this encounter (statuses as of 10/06/2023) [facility] History of Past illness Narrative* Problem Noted Date Diagnosed Date Resolved Date MARKY (obstructive sleep apnea) 09/09/2023 09/10/2023 documented as of this encounter (statuses as of 10/14/2023) [facility]24 NoteHNO ID: [id number] Author: UTE HART MD Service: ? Author [...] [facility]. She subsequently underwent imaging that noted cholelithiasis. [...] is quite healthy. She works at the [employer], no heavy lifting involved. She does not [...] of acute [facility] She subsequently underwent imaging that noted cholelithiasis. [...] is quite healthy. She works at the [employer], no heavy lifting involved. She does not [...] Schedule for cholecystectomy Risk (more content not included)...[facility] History of Present illness Narrative* Alem Hernandez RT(R) - 08/21/2023 8:15 AM EST Radiology Service Progress Note PATIENT NAME: Stacie Davidson DATE OF SERVICE: August 21, 2023 TIME: 9:39 AM PATIENT IDENTITY VERIFICATION COMPLETED USING TWO (2) IDENTIFIERS: Name and Date of confirmedby patient verbally. FALL SCREENING: Has the patient [...] BY: RT Kwabena(R) August 21, 2023 9:39 AM * Val Hutchins RN - 08/21/2023 8:15 AM EST Radiology Service Progress Note DATE OF SERVICE: [...] Left antecubital site with a Angio cath: 20gauge. IV SITE APPEARANCE: Clean,Dry and Intact SIGNATURE: Val Hutchins RN PATIENT NAME: Stacie Davidson DATE: August 21, 2023 TIME: 9:48 AM [facility] NoteHNO ID: [id number] Author: Val Hutchins RN Service: ? Author [...] [place] DATE: August 21, 2023 TIME: 9:48 [facility]12-29-2023 NoteHNO ID: [id number] Author: Alem Hernandez RT(R) Service: ? Author [...] and Intact, Site disposition Discontinued SIGNED BY: Alem Hernandez RT(R) August 21, 2023 9:39 [facility]12-12-2023 Miscellaneous Notes* Telephone Encounter - [place] [...] preventing side effects Provided patient with [facility] appt number to schedule CT Pre [...] AM EST Referral received and scanned into [facility]. Reason for referral hepatic hemangioma, RUQ pain and cholelithiasis [place] [id number] NoteChief Complaint consultation for RUQ pain HPI Staff 53 year old female presents on consultation from [facility] for complaint of RUQ pain. Gil[place] [...] asthma, gastric ulcers, depression, fibromyalgia, referred from [facility] for abd pain and cholelithiasis; patient [...] will send records; call with problems/questions. Ordered: [facility] [facility] [place]ulatory Referral 2. Right upper quadrant abdominal pain (R10.11: Right upper quadrant pain) see # 1 Ordered: [facility] [place] [facility] Referral 3. Cholelithiasis (K80.20: Calculus of gallbladder without cholecystitis without obstruction) see # 1 Ordered: [facility] [place] [facility] Ambulatory Referral 4. BMI 31.0-31.9,adult (Z68.31: Body mass index [BMI] 31.0-31.9, adult) recommend low fat diet and exercise Follow-up No qualifying data available Problem List/Past Medical History Ongoing Asthma BMI 31.0-31.9,adult Cholelithiasis Depression Fibromyalgia Hepatic hemangioma History of gastric ulcer Obesity Right upper quadrant abdominal pain Hi (more content not included)...[facility] Result Comment: Electronically Signed By: CUONG ARGUETA, Roxann Colunga\Date and Time Signed: 07/23/23 17:10 [id number] Evaluation note* Encounter Date Diagnosis Assessment Notes [...] understanding and is agreeable to treatment plan. [employer] Other 10-08-2023 Evaluation note* Encounter Date Diagnosis [...] fever. Patient verbalized understanding of treatment plan. [facility] [employer] Other Evaluation + Plan noteNick-[facility] General [facility] [place] Evaluation noteNo InformationNortKensington Hospital [employer] Other Evaluation noteNo assessment information available [facility] Work Phone: Evaluation note* Diagnosis Calculus of gallbladder without cholecystitis without obstruction- Primary Calculus of gallbladder without mention of cholecystitis or obstruction Liver mass Unspecified disorder of liver [facility] [place] [facility]* Diagnosis S/P gastrointestinal surgery, follow-up exam- Primary Follow-up examination, following other surgery S/P laparoscopic cholecystectomy Other postprocedural status documented in this encounter [facility] [place] [facility]* Diagnosis Onset Date Resolution Status Anemia due to blood loss acu te Antral ulcer acute Asthma acute Family history of Yvonne thyroiditis acute Family history of rheumatoid arthritis acute Fatigue acute Fibromyalgia acute GERD (gastroesophageal reflux disease) acute Hemangioma acute Multiple joint complaints ac [place] Screening for lipid disorders acute [facility] Work Phone: Evaluation note* Diagnosis Onset Date Resolution Status Anemia due to blood loss acu te Antral ulcer acute Asthma acute Family history of diabetes mellitus acute Family history of Yvonne thyroiditis acute Family history of rheumatoid arthritis acute Fatigue acute Fibromyalgia acute GERD (gastroesophageal reflux disease) acute Hemangioma acute Multiple joint complaints ac [place] Obesity (BMI 30.0-34.9) acut e Screening for colon cancer a cute Screening for lipid disorders acute Family history of diabetes mellitus acute Obesity (BMI 30.0-34.9) acut e [facility] Work Phone: Evaluation note* Diagnosis Polyarthralgia- Primary Pain in joint, multiple sites Positive ALONDRA (antinuclear antibody) Other and unspecified nonspecific immunological findings Chronic pain syndrome Dry mouth Disturbance of salivary secretion Polyarthralgia Pain in joint, multiple sites documented in this encounter [facility] [place] [facility]* Diagnosis Polyarthralgia Pain in joint, multiple sites documented in this encounter [facility] [place] [facility]* Diagnosis Ds DNA antibody positive- Primary Other and unspecified nonspecific immunological findings Polyarthralgia Pain in joint, multiple sites Positive ALONDRA (antinuclear antibody) Other and unspecified nonspecific immunological findings Chronic pain syndrome [facility] Diagnosis Onset Date Resolution Status Family history of diabetes mellitus acute Obesity (BMI 30.0-34.9) acut e Anxiety acute Family history of diabetes mellitus acute Obesity (BMI 30.0-34.9) acut e Sleep disturbance acute Anxiety acute Family history of diabetes mellitus acute Obesity (BMI 30.0-34.9) acut e Sleep disturbance acute [facility] Work Phone: Evaluation note* Diagnosis Onset Date Resolution Status Family history of diabetes mellitus acute Obesity (BMI 30.0-34.9) acut e Anxiety acute Family history of diabetes mellitus acute Obesity (BMI 30.0-34.9) acut e Sleep disturbance acute Anxiety acute Family history of diabetes mellitus acute Obesity (BMI 30.0-34.9) acut e Sleep disturbance acute Seasonal allergies acute [facility] Work Phone: evaluation note* Diagnosis Onset Date Resolution Status Anxiety acute Family history of diabetes mellitus acute Obesity (BMI 30.0-34.9) acut e Sleep disturbance acute Anxiety acute Family history of diabetes mellitus acute Obesity (BMI 30.0-34.9) acut e Sleep disturbance acute Seasonal allergies acute Screening for colon cancer a cute UTI (urinary tract infection) acute [facility] Work Phone: evaluation note* Diagnosis Onset Date Resolution Status Anxiety acute Family history of diabetes mellitus acute Obesity (BMI 30.0-34.9) acut e Sleep disturbance acute Anxiety acute Family history of diabetes mellitus acute Obesity (BMI 30.0-34.9) acut e Sleep disturbance acute Seasonal allergies acute Family history of diabetes mellitus acute Obesity (BMI 30.0-34.9) acut e UTI (urinary tract infection) acute [facility] Work Phone: evaluation note* Diagnosis Onset Date Resolution Status Anxiety acute Family history of diabetes mellitus acute Obesity (BMI 30.0-34.9) acut e Sleep disturbance acute Seasonal allergies acute Family history of diabetes mellitus acute Obesity (BMI 30.0-34.9) acut e UTI (urinary tract infection) acute Lesion of lip acute Skin lesion acute [facility] Work Phone: Evaluation note* Diagnosis Pre-op examination- Primary Preoperative examination, unspecified MARKY (obstructive sleep apnea) Obstructive sleep apnea (adult) (pediatric) S/P lumpectomy, left breast Other postprocedural status Asthma, unspecified asthma severity, unspecified whether complicated, unspecified whether persistent Biliary calculus of other site without obstruction Gastroesophageal reflux disease without esophagitis Esophageal reflux Depression, unspecified depression type BMI 31.0-31.9,adult Body Mass Index 31.0-31.9, adult Ds DNA antibody positive- Primary Other and unspecified nonspecific immunological findings documented in this encounter [facility] [place] [facility]* Diagnosis Calculus of gallbladder without cholecystitis without obstruction Calculus of gallbladder without mention of cholecystitis or obstruction Liver mass Unspecified disorder of liver documented in this encounter [facility] [place] [facility]* Diagnosis Onset Date Resolution Status Family history of diabetes mellitus acute Lesion of lip acute Obesity (BMI 30.0-34.9) acut e Skin lesion acute Liver hemangioma acute [facility] Work Phone: Evaluation note* Diagnosis Onset Date Resolution Status Family history of diabetes mellitus acute Lesion of lip acute Obesity (BMI 30.0-34.9) acut e Skin lesion acute Anxiety acute Flank pain acute Liver hemangioma acute Seasonal allergies acute Sleep disturbance [facility] Work Phone: Evaluation note* Diagnosis Well woman exam with routine gynecological exam- Primary Routine gynecological examination Cervical smear, as part of routine gynecological examination Screening for malignant neoplasm of the cervix Standardized adult depression screening tool completed Screening for colon cancer Special screening for malignant neoplasms, colon [facility] Narrative - Reported* Type Description Date Medical History asthma Medical History acid reflux Medical History anxiety Medical History depression Surgical History No Surgical history information Hospitalization History [facility] Hospitalization History blood transfusions and b leeding ulcers [employer] Other History general Narrative - Reported* Type Description Date Medical History asthma Medical History acid reflux Medical History anxiety Medical History depression Surgical History No know Surgical history Hospitalization History [facility] Hospitalization History blood transfusions and b leeding ulcers [employer] Other Hospital course Narrative No data available for this section [facility] General [facility] Discharge instructions No data available for this section [facility] Discharge instructionsAmbulatory Orders* Referral to Dermatology Time Frame: 04/04/24, Location: None [facility] Work Phone: Instructions* Attachments The following attachments cannot be sent through Care Everywhere. * Colon and rectal cancer screening (Chinese) * Genetic testing for breast, ovarian, prostate, and pancreatic cancer (Chinese) documented in this encounterProOhio[facility] SystemProgress note No data available for this section [facility] Reason for referral (narrative) Referred by: Roxann HUTCHINS MD [facility] Retztu for referral (narrative)* Diagnostic Procedure Only (Routine) - Closed Specialty Diagnoses / Procedures Referred By Contac t Referred To Contact XR IMAGING Diagnoses Polyarthralgia Procedures XR CERV OTHER 4V AP/LAT/OBL RADEX SPINE CERVICAL 4 OR 5 VIEWS Tim Plaza MD [address] [place] [address] X[facility] [place] [address] Referral ID Status Reason Start Date Expiration Date V isits Requested Visits Authorized [id number] Closed Auto-Generate d Referral 01/06/2024 02/04/2025 1 1 * Diagnostic Procedure Only (Routine) - Closed Specialty Diagnoses / Procedures Referred By Contac t Referred To Contact XR IMAGING Diagnoses Polyarthralgia Procedures XR KNEE GENERAL 4V AP BOTH/PA BOTH/LAT/MERC BILATERAL RADIOLOGIC EXAM KNEE COMPLETE 4/MORE VIEWS Tim Plaza MD [address] [place] [address] X[place] [facility] Referral ID Status Reason Start Date Expiration Date V isits Requested Visits Authorized [id number] Closed Auto-Generate d Referral 01/06/2024 02/04/2025 1 1 * Diagnostic Procedure Only (Routine) - Closed Specialty Diagnoses / Procedures Referred By Contac t Referred To Contact XR IMAGING Diagnoses Polyarthralgia Procedures XR HAND GENERAL 3V PA/LAT/OBL BILATERAL RADEX HAND MINIMUM 3 VIEWS Tim Plaza MD [address] [place] [phone] [place] [address] Referral ID Status Reason Start Date Expiration Date V isits Requested Visits Authorized [id number] Closed Auto-Generate d Referral 01/06/2024 02/04/2025 1 1 * Diagnostic Procedure Only (Routine) - Closed Specialty Diagnoses / Procedures Referred By Contac t Referred To Contact XR IMAGING Diagnoses Polyarthralgia Procedures XR FOOT GENERAL 3V AP/LAT/OBL BILATERAL RADEX FOOT COMPLETE MINIMUM 3 VIEWS Tim Plaza MD [address] [place] [phone] [place] [address] Referral ID Status Reason Start Date Expiration Date V isits Requested Visits Authorized [id number] Closed Auto-Generate d Referral 01/06/2024 02/04/2025 1 1 * Diagnostic Procedure Only (Routine) - Closed Specialty Diagnoses / Procedures Referred By Contac t Referred To Contact XR IMAGING Diagnoses Polyarthralgia Procedures XR SACROILIAC JOINTS 2V AP PELVIS/FERGUESON RADIOLOGIC EXAMINATION SACROILIAC JNTS <3 VIEWS Tim Plaza MD [address] [place] [phone] [place] [address] Referral ID Status Reason Start Date Expiration Date V isits Requested Visits Authorized [id number] Closed Auto-Generate d Referral 01/06/2024 02/04/2025 1 1 * Diagnostic Procedure Only (Routine) - Closed Specialty Diagnoses / Procedures Referred By Contac t Referred To Contact XR IMAGING Diagnoses Polyarthralgia Procedures XR LUMBAR GENERAL 3V AP/LAT/L5-S1 RADEX SPINE LUMBOSACRAL 2/3 VIEWS Tim Plaza MD [address] [place] [phone] X[facility] Imaging [place] [address] Referral ID Status Reason Start Date Expiration Date V isits Requested Visits Authorized [id number] Closed Auto-Generate d Referral 01/06/2024 02/04/2025 1 1 [facility] for referral (narrative)* Diagnostic Procedure Only (Routine) - Closed Specialty Diagnoses / Procedures Referred By Contac t Referred To Contact XR IMAGING Diagnoses Polyarthralgia Procedures XR CERV OTHER 4V AP/LAT/OBL RADEX SPINE CERVICAL 4 OR 5 VIEWS Tim Plaza MD [address] [place] [address] X[facility] [place] [address] Referral ID Status Reason Start Date Expiration Date V isits Requested Visits Authorized [id number] Closed Auto-Generate d Referral 01/06/2024 02/04/2025 1 1 * Diagnostic Procedure Only (Routine) - Closed Specialty Diagnoses / Procedures Referred By Contac t Referred To Contact XR IMAGING Diagnoses Polyarthralgia Procedures XR KNEE GENERAL 4V AP BOTH/PA BOTH/LAT/MERC BILATERAL RADIOLOGIC EXAM KNEE COMPLETE 4/MORE VIEWS Tim Plaza MD [address] [place] [address] [place] [address] Referral ID Status Reason Start Date Expiration Date V isits Requested Visits Authorized [id number] Closed Auto-Generate d Referral 01/06/2024 02/04/2025 1 1 * Diagnostic Procedure Only (Routine) - Closed Specialty Diagnoses / Procedures Referred By Contac t Referred To Contact XR IMAGING Diagnoses Polyarthralgia Procedures XR HAND GENERAL 3V PA/LAT/OBL BILATERAL RADEX HAND MINIMUM 3 VIEWS Tim Plaza MD [address] [place] [phone] Xr Imaging [facility] Referral ID Status Reason Start Date Expiration Date V isits Requested Visits Authorized [id number] Closed Auto-Generate d Referral 01/06/2024 02/04/2025 1 1 * Diagnostic Procedure Only (Routine) - Closed Specialty Diagnoses / Procedures [facility] To [facility] XR IMAGING Diagnoses Polyarthralgia Procedures XR FOOT GENERAL 3V AP/LAT/OBL BILATERAL RADEX FOOT COMPLETE MINIMUM 3 VIEWS Tim Plaza MD [address] [place] [address] Xr Imaging [place] [address] Referral ID Status Reason Start Date Expiration Date V isits Requested Visits Authorized [id number] Closed Auto-Generate d Referral 01/06/2024 02/04/2025 1 1 * Diagnostic Procedure Only (Routine) - Closed Specialty Diagnoses / Procedures [facility] Referred To Contact XR IMAGING Diagnoses Polyarthralgia Procedures XR SACROILIAC JOINTS 2V AP PELVIS/FERGUESON RADIOLOGIC EXAMINATION SACROILIAC JNTS <3 VIEWS Tim Plaza MD [address] [place] [phone] Xr Imaging [facility] Referral ID Status Reason Start Date Expiration Date V isits Requested Visits Authorized [id number] Closed Auto-Generate d Referral 01/06/2024 02/04/2025 1 1 * Diagnostic Procedure Only (Routine) - Closed Specialty Diagnoses / Procedures [facility] Referred To Contact XR IMAGING Diagnoses Polyarthralgia Procedures XR LUMBAR GENERAL 3V AP/LAT/L5-S1 RADEX SPINE LUMBOSACRAL 2/3 VIEWS Tim Plaza MD [address] [place] [phone] Xr Imaging [facility] Referral ID Status Reason Start Date Expiration Date V isits Requested Visits Authorized [id number] Closed Auto-Generate d Referral 01/06/2024 02/04/2025 1 1 [facility] for visit Narrative* Diagnostic Procedure Only (Routine) - Closed Specialty Diagnoses / Procedures Referred By Julianne quezada Referred To Contact XR IMAGING Diagnoses Polyarthralgia Procedures XR CERV OTHER 4V AP/LAT/OBL RADEX SPINE CERVICAL 4 OR 5 VIEWS Tim Plaza MD [address] [place] [address] Xr Imaging [place] [address] Referral ID Status Reason Start Date Expiration Date V isits Requested Visits Authorized [id number] Closed Auto-Generate d Referral 01/06/2024 02/04/2025 1 1 [facility] Summary Purpose Family History Relationship Condition Age [...] Referral Specialty Diagnoses / Procedures Referred By Julianne quezada Referred To Contact CT IMAGING Diagnoses Calculus of gallbladder without cholecystitis without obstruction Liver mass Procedures CT LIVER W IVCON CT ABDOMEN W/CONTRAST 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, FAIRING MAN.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 [address] [place] [address] [place] [address] Referral ID Status Reason Start Date Expiration Date Visits Requested Visits Authorized [id number] Authorized Auto-Generat ed Referral 3 08/23/2023 1 [...] Obesity (BMI 30.0-34.9) UTI (urinary tract infection) Chief Complaint 4 week check up allergies weight loss medication discussion R10.9 weight recheck Reason for Visit Anxiety Family history of diabetes mellitus Obesity (BMI 30.0-34.9) Sleep disturbance Seasonal allergies Family history of diabetes mellitus Obesity (BMI 30.0-34.9) UTI (urinary tract infection) Lesion of lip Skin lesion Chief Complaint weight recheck Allergies Reason for Visit Family history of di abetes mellitus Lesion of lip Obesity (BMI 30.0-34.9) Skin lesion Liver hemangioma Chief Complaint weight recheck Allergies Reason for Visit Family history of di abetes mellitus Lesion of lip Obesity (BMI 30.0-34.9) Skin lesion Anxiety Flank pain Liver hemangioma Seasonal allergies Sleep disturbance Additional Source Comments INFORMATION SOURCE (unrecogn ized section and content) DATE CREATED AUTHOR 10/11/2022 [facility] DATE CREATED AUTHOR AUTHOR'S ORGANIZ ATION 09/20/2023 [facility] DATE CREATED AUTHOR AUTHOR'S ORGANIZ ATION 09/29/2023 [facility] DATE CREATED AUTHOR AUTHOR'S ORGANIZ ATION 03/25/2024 [facility] DATE CREATED AUTHOR AUTHOR'S ORGANIZ ATION 04/01/2024 [facility] DATE CREATED AUTHOR AUTHOR'S ORGANIZ ATION 04/20/2024 [facility] DATE CREATED AUTHOR AUTHOR'S ORGANIZ ATION 07/01/2024 [facility] REASON FOR VISIT (unrecogniz ed section and [...] Comments Radiology XR Reason Comments Follow Up Reason Comments Recheck Pain scale 7, R hip pain, Nightly i have low back pain radiating to my right hip. It makes it difficult to find a comfortable sleeping position or sleep as a matter of fact. throughout the day, my right hand and wrist aches and alexander .Pt states eye doctor put her on restatis eye drops for the rest of her life. Wants to discuss. Pt was on a prednisone eye drops that she completed. Pt had kidney stones recently. She was on macrobid last month. Wanted to let Know. Reason Comments Radiology CT Specialty Diagnoses / Procedures Referred By Julianne uqezada Referred To Contact CT IMAGING Diagnoses Calculus of gallbladder without cholecystitis without obstruction Liver mass Procedures CT LIVER W IVCON CT ABDOMEN W/CONTRAST 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 APRN.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 [address] [place] [address] [place] [address] Referral ID Status Reason Start Date Expiration Date V isits Requested Visits Authorized [id number] Closed Auto-Generate d Referral 08/05/2023 08/23/2023 1 1 Reason Comments Gynecologic Exam Pt is here for feliciano anderson exam. Care Teams (unrecognized sec tion and content) Team Status: Active Member Role Status Dates Nadege Aly DNP Primary Care Provider Active Team Status: Inactive Member Role Status Dates Nadege Aly DNP Primary Care Provider Active Dayanara Thompson APRN Attending Provider Active Flame Hardening Machine Setter Relationship Specialty Start Date End Date [facility] [address] [place] [address] PCP - General Family Medicine 09/09/23 Flame Hardening Machine Setter Relationship Specialty Start Date End Date [facility] [address] [place] [address] PCP - General Family Medicine 09/09/23 Flame Hardening Machine Setter Relationship Specialty Start Date End Date [facility] [address] [place] [address] PCP - General Family Medicine 09/09/23 Team Status: Active Member Role Status Dates Nadege Lawson APRN WRAPPER OPENER-C Primary Care Provider Active Team Status: Inactive Member Role Status Dates Nadege Lawson APRN WRAPPER OPENER-C Primary Care Provider, Attending Provider Active Start: October 13, 2023 End: October 13, 2023 Team Status: Active Member Role Status Dates Nadege Lawson APRN WRAPPER OPENER-C Primary Care Provider, Attending Provider Active Start: October 16, 2023 Team Status: Inactive Member Role Status Dates Nadege Lawson APRN WRAPPER OPENER-C Primary Care Provider, Attending Provider Active Start: November 10, 2023 End: November 10, 2023 Team Status: Inactive Member Role Status Dates Nadege Lawson APRN WRAPPER OPENER-C Primary Care Provider, Attending Provider Active Start: December 15, 2023 End: December 15, 2023 Flame Hardening Machine Setter Relationship Specialty Start Date End Date Nadege Lawson NP [address] [place] [address] PCP - General Nurse Practitioner 01/06/24 Nadege Lawson NP [address] [place] [address] Referring Nurse Practitioner 10/22/23 Flame Hardening Machine Setter Relationship Specialty Start Date End Date Nadege Lawson NP [address] [place] [address] PCP - General Nurse Practitioner 01/06/24 Nadege Lawson NP [address] [place] [address] Referring Nurse Practitioner 10/22/23 Flame Hardening Machine Setter Relationship Specialty Start Date End Date Nadege Lawson NP [address] [place] [address] PCP - General Nurse Practitioner 01/06/24 Nadege Lawson NP [address] [facility] [place] [address] Referring Nurse Practitioner 10/22/23 Flame Hardening Machine Setter Relationship Specialty Start Date End Date Nadege Lawson NP [address] [place] [address] PCP - General Nurse Practitioner 01/06/24 Nadege Lawson NP [address] [facility] [place] [address] Referring Nurse Practitioner 10/22/23 Team Status: Active Member Role Status Dates Nadege Lawson APRN WRAPPER OPENER-C Primary Care Provider Active Start: December 23, 2023 Nadege Fregoso LPN Attending Provider Active Start: December 23, 2023 Team Status: Active Member Role Status Dates Nadege Lawson APRN WRAPPER OPENER-C Primary Care Provider, Attending Provider Active Start: January 06, 2024 Team Status: Inactive Member Role Status Dates Nadege Lawson APRN WRAPPER OPENER-C Primary Care Provider, Attending Provider Active Start: January 12, 2024 End: January 12, 2024 Team Status: Inactive Member Role Status Dates Nadege Lawson APRN WRAPPER OPENER-C Primary Care Provider, Attending Provider Active Start: January 27, 2024 End: January 27, 2024 Team Status: Inactive Member Role Status Dates Nadege Lawson APRN WRAPPER OPENER-C Primary Care Provider, Attending Provider Active Start: March 07, 2024 End: March 07, 2024 Team Status: Inactive Member Role Status Dates Nadege Lawson APRN WRAPPER OPENER-C Primary Care Provider, Attending Provider Active Start: April 04, 2024 End: April 04, 2024 Flame Hardening Machine Setter Relationship Specialty Start Date End Date Nadege Lawson NP [address] [place] [address] PCP - General Nurse Practitioner 01/06/24 Nadege Lawson NP [address] [facility] [place] [address] Referring Nurse Practitioner 10/22/23 Team Status: Active Member Role Status Dates Nadege Rangeljazmargarita LAUREN [employer]PER [employer]ENER-C Primary Care Provider, Attending Provider Active Start: April 19, 2024 Team Status: Inactive Member Role Status Dates Nadege Rangeljazmargarita LAUREN WR[employer]PER [employer]ENER-C Primary Care Provider, Attending Provider Active Start: June 21, 2024 End: June 21, 2024 Team Status: Inactive Member Role Status Dates Nadege Rangeljazmargarita LAUREN WR[employer]PER [employer]ENER-C Attending Provider Act erik Start: June 21, 2024 End: June 21, 2024 Goals (unrecognized section and content) Goals may be documented in a n alternate section Source Comments (unrecognize d section and content) In the event this informatio n is protected by the Federal Confidentiality of Alcohol and Drug Abuse Patient Records regulations: The Federal rules restrict any use of the information to criminally investigate or prosecute any alcohol or drug abuse patient.[facility] the event this information is protected by the Federal Confidentiality of Alcohol and Drug Abuse Patient Records regulations: The Federal rules restrict any use of the information to criminally investigate or prosecute any alcohol or drug abuse patient.[facility] the event this information is protected by the Federal Confidentiality of Alcohol and Drug Abuse Patient Records regulations: The Federal rules restrict any use of the information to criminally investigate or prosecute any alcohol or drug abuse patient.[facility] the event this information is protected by the Federal Confidentiality of Alcohol and Drug Abuse Patient Records regulations: The Federal rules restrict any use of the information to criminally investigate or prosecute any alcohol or drug abuse patient.[facility] the event this information is protected by the Federal Confidentiality of Alcohol and Drug Abuse Patient Records regulations: The Federal rules restrict any use of the information to criminally investigate or prosecute any alcohol or drug abuse patient.[facility] the event this information is protected by the Federal Confidentiality of Alcohol and Drug Abuse Patient Records regulations: The Federal rules restrict any use of the information to criminally investigate or prosecute any alcohol or drug abuse patient.[facility] the event this information is protected by the Federal Confidentiality of Alcohol and Drug Abuse Patient Records regulations: The Federal rules restrict any use of the information to criminally investigate or prosecute any alcohol or drug abuse patient.[facility] the event this information is protected by the Federal Confidentiality of Alcohol and Drug Abuse Patient Records regulations: The Federal rules restrict any use of the information to criminally investigate or prosecute any alcohol or drug abuse patient.[facility] the event this information is protected by the Federal Confidentiality of Alcohol and Drug Abuse Patient Records regulations: The Federal rules restrict any use of the information to criminally investigate or prosecute any alcohol or drug abuse patient.[facility] the event this information is protected by the Federal Confidentiality of Alcohol and Drug Abuse Patient Records regulations: The Federal rules restrict any use of the information to criminally investigate or prosecute any alcohol or drug abuse patient.[facility] the event this information is protected by the Federal Confidentiality of Alcohol and Drug Abuse Patient Records regulations: The Federal rules restrict any use of the information to criminally investigate or prosecute any alcohol or drug abuse patient.[facility] FOR RECORDS PERTAINING TO PATIENTS WHO [...] BE BASED ON THE PRIMARY CLINICAL RECORDS. [facility] [employer] [facility]. provides no warranty or guarantee of the accuracy or completeness of information in this document.
== END 2024-10-15 12:51 | disposition home or self-care (01) ==
LOC: US 12:50
PROVIDERS: PCP Nurse Practitioner Family; Visit Provider Nurse Practitioner Family
DX: R22.41 Localized swelling, mass and lump, right lower limb (principal); M79.604 Pain in right leg
CPT/HCPCS: 76882

== ENCOUNTER 2024-10-17 07:58 | Outpatient (OUT) | payer BC, SELFPAY ==
--- NOTE | 2024-10-17 08:00 | MM_ITS ---
Patient Name: DEANGELO DAVIDSON MR#: [id number] : 1970 Exam Date: 10/17/2024 Ordering Doctor: JOANN IRVIN [employer]ACHING [employer]-C RADIOLOGY REPORT PROCEDURE: MM TOMOSYNTHESIS SCREENING BI COMPARISON: MM TOMOSYNTHESIS SCREENING BI, 10/16/2023. MG MAMM SCREEN 3D MARY CAD, 08/05/2022. MG MAMM DX 3D RT CAD, 01/22/2022. MG MAMM SCREEN MARY W CAD, 05/25/2020. INDICATIONS: Screening Calculator Name NCI Breast Cancer Risk Assessment Tool 5 Year Breast Cancer Risk 2.30% Lifetime Breast Cancer Risk 16.10% Personal Breast Cancer No Personal Ovarian Cancer No Treatments None Family Cancers Sister with breast cancer at age 47; Father with pancreas cancer at age 70. LOCATION: [facility] BREAST COMPOSITION: The breasts are heterogeneously dense,which may obscure small masses. FINDINGS: DIAGNOSTIC CATEGORY 1--NEGATIVE. NO CHANGE FROM COMPARISON ASSESSMENT. LEFT BREAST: No significant suspicious finding. RIGHT BREAST: No significant suspicious finding. RECOMMENDATIONS: ROUTINE MAMMOGRAM AND CLINICAL EVALUATION IN 12 MONTHS. PLEASE NOTE: Dictated by: Regis Kent DO on 10/17/2024 at 14:39 Approved by: Regis Kent DO on 10/17/2024 at 15:01
--- OUTSIDE RECORDS SUMMARY | 2024-10-17 08:22 | XMS_ITS | CCD ---
Author Organization [facility] Care Team Providers Care Dining Room Maid Name Role Phone AICHHOLZ, SALES REPRESENTATIVE HEALTH INSURANCE MARRY Primary Care Unavailable AICHHOLZ, SALES REPRESENTATIVE HEALTH INSURANCE MARRY Consulting Unavailable AICHHOLZ, SALES REPRESENTATIVE HEALTH INSURANCE MARRY Attending Unavailable AICHHOLZ, SALES REPRESENTATIVE HEALTH INSURANCE MARRY Admitting Unavailable DR LOREN WHEATLEY Consulting Unavailable AICHHOLZ, SALES REPRESENTATIVE HEALTH INSURANCE MARRY Primary Care Unavailable AICHHOLZ, SALES REPRESENTATIVE HEALTH INSURANCE MARRY Admitting Unavailable AICHHOLZ, SALES REPRESENTATIVE HEALTH INSURANCE MARRY Attending Unavailable AICHHOLZ, SALES REPRESENTATIVE HEALTH INSURANCE MARRY Consulting Unavailable AICHHOLZ, SALES REPRESENTATIVE HEALTH INSURANCE MARRY Attending Unavailable AICHHOLZ, SALES REPRESENTATIVE HEALTH INSURANCE MARRY Admitting Unavailable AICHHOLZ, SALES REPRESENTATIVE HEALTH INSURANCE MARRY Primary Care Unavailable AICHHOLZ, SALES REPRESENTATIVE HEALTH INSURANCE MARRY Consulting Unavailable AICHHOLZ, SALES REPRESENTATIVE HEALTH INSURANCE MARRY Attending Unavailable AICHHOLZ, SALES REPRESENTATIVE HEALTH INSURANCE MARRY Admitting Unavailable AICHHOLZ, SALES REPRESENTATIVE HEALTH INSURANCE MARRY Primary Care Unavailable AICHHOLZ, SALES REPRESENTATIVE HEALTH INSURANCE MARRY Consulting Unavailable DR LOREN WHEATLEY Consulting Unavailable AICHHOLZ, SALES REPRESENTATIVE HEALTH INSURANCE MARRY Consulting Unavailable AICHHOLZ, SALES REPRESENTATIVE HEALTH INSURANCE MARRY Admitting Unavailable AICHHOLZ, SALES REPRESENTATIVE HEALTH INSURANCE MARRY Primary Care Unavailable AICHHOLZ, SALES REPRESENTATIVE HEALTH INSURANCE MARRY Attending Unavailable AICHHOLZ, SALES REPRESENTATIVE HEALTH INSURANCE MARRY Primary Care Unavailable AICHHOLZ, SALES REPRESENTATIVE HEALTH INSURANCE MARRY Consulting Unavailable AICHHOLZ, SALES REPRESENTATIVE HEALTH INSURANCE MARRY Attending Unavailable AICHHOLZ, SALES REPRESENTATIVE HEALTH INSURANCE MARRY Admitting Unavailable DR LOREN WHEATLEY Consulting Unavailable AICHHOLZ, SALES REPRESENTATIVE HEALTH INSURANCE MARRY Primary Care Unavailable AICHHOLZ, SALES REPRESENTATIVE HEALTH INSURANCE MARRY Consulting Unavailable AICHHOLZ, SALES REPRESENTATIVE HEALTH INSURANCE MARRY Attending Unavailable AICHHOLZ, SALES REPRESENTATIVE HEALTH INSURANCE MARRY Admitting Unavailable DR LOREN WHEATLEY Consulting Unavailable Rylee Barrientos Unavailable Dayanara Thompson Unavailable ALLAN Aly Primary Care Provider LAUREN Thompson Attending Provider [phone] PATTIMARRY Rosales J Primary Care Physician [phone] Unavailable Primary Care Provider Unavailabl e HART, TOMS Attending Unavailable HART, TOMS Admitting Unavailable Roxann HUTCHINS Attending Unavailable Aichholz SALES REPRESENTATIVE HEALTH INSURANCE, Marry Mariaa Primary Care Provider Rohrbacher ENGAGEMENT SPECIALIST, Nadege Unavailable Unavaila ble Rohrbacher ENGAGEMENT SPECIALIST, Nadege Primary Care Provider Rohrbacher, 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 Nadege Primary Care Provider RohrbLAUREN choudhury Attending Provider [phone] MARRY CHUNG Referring Unavailable AICHHOLZ, MARRY MARIAA [...] source) Trimethoprim Drug Allergy 01-27-20 sick to [facility] Sulfonamides (antibiotic) (3 sources) Sulfonamides (Antibiotic) Drug Allergy 07-18-20 [facility] Tetracyclines (antibiotic) (1 source) Tetracyclines Drug Allergy 01-27-20 24 Itching, rash [facility] (2 sources) Tetracycline; Translations: [tetracycline] Drug Allergy 06-17-20 21 [facility] Repository (3 sources) Sulfamethoxazole / Trimethoprim Drug Allergy sick to [facility] Open CS Other (3 sources) Sulfonamides (Antibiotic) Propensity to adverse reactions hives [facility] Open CS Other (15 sources) Tetracyclines; Translations: [TETRACYCLINES] Propensity to adverse reactions 12-11-19 [facility] (2 sources) Sulfonamides (Antibiotic); Translations: [sulfa drugs] Propensity to adverse reactions to drug Eruption of skin (disorder) [facility] (1 source) Tetracycline; Translations: [tetracycline] Drug Allergy Dyspnea (finding) [facility] (20 sources) Sulfonamides (Antibiotic); Translations: [SULFA (SULFONAMIDE ANTIBIOTICS)] Propensity to adverse reactions to drug (disorder) 07-18-20 [facility] Repository (9 sources) Tetracycline (class of antibiotic) Drug Allergy 12-11-19 18 Itching, Rash, Shortness of Breath [facility] (10 sources) Sulfamethoxazole; Translations: [sulfamethoxazole] Drug Allergy 10-13-19 sick to [facility] (10 sources) Trimethoprim; Translations: [trimethoprim] Drug Allergy 10-13-19 sick to [facility] (3 sources) OTHER; Translations: [OTHER] Propensity to adverse reactions to food (disorder) 03-23-20 [facility] Repository (1 source) Tetracyclines Drug allergy (disorder) 06-21-20 [facility] Repository Medications Current Medications Medication [...] bacterial skin contaminants 2 Days PERFORMED BY: [facility] [address] [place] [address] PATHOLOGIST POLICE SPECIALIST ALICE MOORE M.D. Normal [facility] Comment on above: Performed By: #### C UU #### [facility] [address] [id number] [facility] C3 SerPl-mCncon 04-19-2024 Complement C3 [Mass/Vol] 148 mg/dL Normal 86-166 [facility] Comment on above: Order Comment: Speci men Type: BLOOD SPECIMEN Ordering Facility: [facility] Address: [address] [place] [address] Performed By: #### 2 157-6, 55199-9 #### [facility] CLIA [id number] [address] [place] [address] [place] C4 SerPl-mCncon 04-19-2024 Complement C4 [Mass/Vol] 22 mg/dL Normal 13-46 [facility] Comment on above: Order Comment: Speci men Type: BLOOD SPECIMEN Ordering Facility: [facility] Address: [address] [place] [address] Performed By: #### 2 157-6, 06230-3 #### [facility] CLIA [id number] [address] [place] [address] [place] CBC panel Auto (Bld)on 04-19 Erythrocyte distribution width (RBC) [Ratio] 12.1 % 11.5 - 15.0 % [facility] Hematocrit (Bld) [Volume fraction] 43.3 % 36.0 - 46.0 % [facility] Hemoglobin (Bld) [Mass/Vol] 13.7 g/dL 11.5 - 15.5 g/dL [facility] Interpretation and review of laboratory results Normal [facility] MCH (RBC) [Entitic mass] 31.1 pg 26.0 - 34.0 pg [facility] MCHC (RBC) [Mass/Vol] 31.6 g/dL 30.5 - 36.0 g/dL [facility] MCV (RBC) [Entitic vol] 98.2 fL 80.0 - 100.0 fL [facility] Nucleated RBC (Bld) [#/Vol] NINF [facility] Platelet mean volume (Bld) [Entitic vol] 10.2 fL 9.0 - 12.7 fL [facility] Platelets (Bld) [#/Vol] 311 10*3/uL [facility] RBC (Bld) [#/Vol] 4.41 10*6/uL 3.90 - 5.2 0 m/uL [facility] WBC (Bld) [#/Vol] 5.51 10*3/uL [facility] Erythrocyte distribution width (RBC) [Ratio] 12.1 % Normal 11.5-15.0 [facility] Comment on above: Order Comment: Speci men Type: BLOOD SPECIMENOrdering Facility: [facility] Address: [address] [place] [address] Performed By: #### 5 8410-2 ####[facility] [id number] [place] [address] [place] Hematocrit (Bld) [Volume fraction] 43.3 % Normal 36.0-46.0 [facility] Comment on above: Order Comment: Speci men Type: BLOOD SPECIMENOrdering Facility: [facility] Address: [address] [place] [address] Performed By: #### 5 8410-2 ####[facility] [id number] [place] [address] [place] Hemoglobin (Bld) [Mass/Vol] 13.7 g/dL Normal 11.5-15.5 [facility] Comment on above: Order Comment: Speci men Type: BLOOD SPECIMENOrdering Facility: [facility] Address: [address] [place] [address] Performed By: #### 5 8410-2 ####[facility] [id number] [place] [address] [place] MCH (RBC) [Entitic mass] 31.1 pg Normal 26.0-34.0 [facility] Comment on above: Order Comment: Speci men Type: BLOOD SPECIMENOrdering Facility: [facility] Address: [address] [place] [address] Performed By: #### 5 8410-2 ####[facility] [id number] [place] [address] [place] MCHC (RBC) [Mass/Vol] 31.6 g/dL Normal 30.5-36.0 [facility] Comment on above: Order Comment: Speci men Type: BLOOD SPECIMENOrdering Facility: [facility] Address: [address] [place] [address] Performed By: #### 5 8410-2 ####[facility] [id number] [place] [address] [place] MCV (RBC) [Entitic vol] 98.2 fL Normal 80.0-100.0 [facility] Comment on above: Order Comment: Speci men Type: BLOOD SPECIMENOrdering Facility: [facility] Address: [address] [place] [address] Performed By: #### 5 8410-2 ####[facility] [id number] [place] [address] [place] Nucleated RBC (Bld) [#/Vol] 10*3/uL Normal <0.01 [facility] Comment on above: Order Comment: Speci men Type: BLOOD SPECIMENOrdering Facility: [facility] Address: [address] [place] [address] Performed By: #### 5 8410-2 ####[facility] [id number] [place] [address] [place] Platelet mean volume (Bld) [Entitic vol] 10.2 fL Normal 9.0-12.7 [facility] Comment on above: Order Comment: Speci men Type: BLOOD SPECIMENOrdering Facility: [facility] Address: [address] [place] [address] Performed By: #### 5 8410-2 ####[facility] [id number] [place] [address] [place] Platelets (Bld) [#/Vol] 311 10*3/uL Normal 150-400 [facility] Comment on above: Order Comment: Speci men Type: BLOOD SPECIMENOrdering Facility: [facility] Address: [address] [place] [address] Performed By: #### 5 8410-2 ####[facility] [id number] [place] [address] [place] RBC (Bld) [#/Vol] 4.41 10*6/uL Normal 3.90-5.20 [facility] Comment on above: Order Comment: Speci men Type: BLOOD SPECIMENOrdering Facility: [facility] Address: [address] [place] [address] Performed By: #### 5 8410-2 ####[facility] [id number] [place] [address] [place] WBC (Bld) [#/Vol] 5.51 10*3/uL Normal 3.70-11.00 [facility] Comment on above: Order Comment: Speci men Type: BLOOD SPECIMENOrdering Facility: [facility] Address: [address] [place] [address] Performed By: #### 5 8410-2 ####[facility] [id number] [place] [id number] [place] CNOVon 04-19-2024 CNOV Office Visit (BEKAH ) -------- STAICE [id number]) 1970 F Date Time Provider Department 04/19/24 9:20 AM TIM PLAZA During your visit today, we recorded the following information about you: Pulse Blood pressure Weight 91/minute 135/82 75.2 kg Tim Plaza MD 04/19/2024 11:01 AM Signed [facility] Date of Service: 04/19/2024 Patient: Stacie Davidson Medical Record: [id number] Primary Care Physician: Marry Schroeder CNP, ALVIN Referring Provider: Marry Schroeder CNP ([facility]) [address] [facility] [address] Last Rheumatology visit: 01/15/2024 (with Tim Plaza) [...] facet arthros (more content not included)... Normal [facility] Comprehensive metabolic 2000 panelon 04-19-2024 Albumin [Mass/Vol] 4.6 g/dL Normal 3.9-4.9 [facility] Comment on above: Order Comment: Speci men Type: BLOOD SPECIMEN Ordering Facility: [facility] Address: [address] [place] [address] Performed By: #### 2 157-6, 49161-2 #### [facility] CLIA [id number] [address] [place] [address] [place] ALP [Catalytic activity/Vol] 64 U/L Normal 34-123 [facility] Comment on above: Order Comment: Speci men Type: BLOOD SPECIMEN Ordering Facility: [facility] Address: [address] [place] [address] Performed By: #### 2 157-6, 13014-7 #### [facility] CLIA [id number] [address] [place] [address] [place] ALT [Catalytic activity/Vol] 26 U/L Normal 7-38 [facility] Comment on above: Order Comment: Speci men Type: BLOOD SPECIMEN Ordering Facility: [facility] Address: [address] [place] [address] Performed By: #### 2 157-6, 88889-2 #### [facility] CLIA [id number] [address] [place] [address] [place] Anion gap [Moles/Vol] 8 mmol/L Normal 8-15 [facility] Comment on above: Order Comment: Speci men Type: BLOOD SPECIMEN Ordering Facility: [facility] Address: [address] [place] [address] Performed By: #### 2 157-6, 17357-6 #### [facility] CLIA [id number] [address] [place], [place] [id number] [place] AST [Catalytic activity/Vol] 29 U/L Normal 13-35 [facility] Comment on above: Order Comment: Speci men Type: BLOOD SPECIMEN Ordering Facility: [facility] Address: [address] [place] [address] Performed By: #### 2 157-6, 30664-9 #### [facility] CLIA [id number] [address] [place] [address] [place] Bilirubin [Mass/Vol] 0.2 mg/dL Normal 0.2-1.3 [facility] Comment on above: Order Comment: Speci men Type: BLOOD SPECIMEN Ordering Facility: [facility] Address: [address] [place] [address] Performed By: #### 2 157-6, 28878-3 #### [facility] CLIA [id number] [address] [place] [address] [place] Calcium [Mass/Vol] 9.9 mg/dL Normal 8.5-10.2 [facility] Comment on above: Order Comment: Speci men Type: BLOOD SPECIMEN Ordering Facility: [facility] Address: [address] [place], [place] [address] Performed By: #### 2 157-6, 48113-6 #### [facility] CLIA [id number] [address] [place] [address] [place] Chloride [Moles/Vol] 100 mmol/L Normal 98-107 [facility] Comment on above: Order Comment: Speci men Type: BLOOD SPECIMEN Ordering Facility: [facility] Address: [address] [place] [address] Performed By: #### 2 157-6, 96184-7 #### [facility] CLIA [id number] [address] [place] [address] [place] CO2 [Moles/Vol] 30 mmol/L Normal 22-30 [facility] Comment on above: Order Comment: Speci men Type: BLOOD SPECIMEN Ordering Facility: [facility] Address: [address] [place] [address] Performed By: #### 2 157-6, 41403-5 #### [facility] CLIA [id number] [address] [place] [address] [place] Creatinine [Mass/Vol] 0.72 mg/dL Normal 0.58-0.96 [facility] Comment on above: Order Comment: Speci men Type: BLOOD SPECIMEN Ordering Facility: [facility] Address: [address] [place] [address] Performed By: #### 2 157-6, 89381-7 #### [facility] CLIA [id number] [address] [place] [address] [place] Creatinine and Glomerular filtration rate.predicted panel (S/P/Bld) 100 mL/min/1.73m??? Normal >=60 [facility] Comment on above: Order Comment: Speci men Type: BLOOD SPECIMEN Ordering Facility: [facility] Address: [address] [place] [address] Result Comment: Petra mated Glomerular Filtration Rate [...] actual GFR. Performed By: #### 2 157-6, 42879-5 #### [facility] CLIA [id number] [address] [place] [address] [place] Glucose [Mass/Vol] 98 mg/dL Normal 74-99 [facility] Comment on above: Order Comment: Donte davis Type: BLOOD SPECIMEN Ordering Facility: [facility] Address: [address] [place] [address] Result Comment: The [place] [employer] (ADA) provides guidance for cutoff [...] Standards of Medical Care in Diabetes 2016, [place] [employer]. Diabetes Care. 2016.39(Suppl 1). Performed By: #### 2 157-6, 64331-7 #### [facility] CLIA [id number] [address] [place] [address] [place] Potassium [Moles/Vol] 4.6 mmol/L Normal 3.7-5.1 [facility] Comment on above: Order Comment: Donte davis Type: BLOOD SPECIMEN Ordering Facility: [facility] Address: [address] [place] [address] Performed By: #### 2 157-6, 13244-2 #### [facility] CLIA [id number] [address] [place] [address] [place] Protein [Mass/Vol] 7.6 g/dL Normal 6.3-8.0 [facility] Comment on above: Order Comment: Donte davis Type: BLOOD SPECIMEN Ordering Facility: [facility] Address: [address] [place] [address] Performed By: #### 2 157-6, 94462-5 #### [facility] CLIA [id number] [address] [place] [address] [place] Sodium [Moles/Vol] 138 mmol/L Normal 136-144 [facility] Comment on above: Order Comment: Speci men Type: BLOOD SPECIMEN Ordering Facility: [facility] Address: [address] [place] [address] Performed By: #### 2 157-6, 37653-9 #### [facility] CLIA [id number] [address] [place] [address] [place] Urea nitrogen [Mass/Vol] 10 mg/dL Normal 7-21 [facility] Comment on above: Order Comment: Speci men Type: BLOOD SPECIMEN Ordering Facility: [facility] Address: [address] [place] [address] Performed By: #### 2 157-6, 79664-4 #### [facility] CLIA [id number] [address] [place] [address] [place] DNA double strand Ab IA Qn ( S)on 04-19-2024 DNA ANTIBODY 521 IU/mL High <=200 [facility] Comment on above: Order Comment: Speci men Type: BLOOD SPECIMENOrdering Facility: [facility] Address: [address] [place] [address] Result Comment: Nega tive: <200 IU/mL Equivocal: 201-300 IU/mL Moderate Positive: 301-800 IU/mL Strong Positive: >801 IU/mL Performed By: #### 3 2677-7 ####[facility] [id number] [place] [address] [place] DNA ANTIBODY QUALITATIVE INTERPRETATION Positive Abnormal Negative [facility] Comment on above: Order Comment: Speci men Type: BLOOD SPECIMENOrdering Facility: [facility] Address: [address] [place] [address] Performed By: #### 3 2677-7 ####[facility] [id number] [place] [address] [place] Erythrocyte distribution wid th Auto (RBC) [Ratio]on 04-19-2024 Erythrocyte distribution width (RBC) [Ratio] 12.1 % 11.5-15.0 [facility] Hematocrit Auto (Bld) [Volum e fraction]on 04-19-2024 Hematocrit (Bld) [Volume fraction] 43.3 % 36.0-46.0 [facility] Hemoglobin [Mass/volume] in Bloodon 04-19-2024 Hemoglobin (Bld) [Mass/Vol] 13.7 g/dL 11.5-15.5 [facility] Laboratory - Chemistry and C hemistry - challengeon 04-19-2024 Bilirubin Ql (U) Negative Negative [facility] Glucose (U) [Mass/Vol] Negative Negative [facility] Ketones Ql (U) Negative Negative [facility] pH (U) 7.0 [pH] <8.5 [facility] Specific gravity (U) [Rel density] 1.015 1.005-1.030 [facility] Albumin [Mass/Vol] 4.6 g/dL 3.9-4.9 [facility] ALP [Catalytic activity/Vol] 64 U/L 34-123 [facility] ALT [Catalytic activity/Vol] 26 U/L 7-38 [facility] AST [Catalytic activity/Vol] 29 U/L 13-35 [facility] Bilirubin [Mass/Vol] 0.2 mg/dL 0.2-1.3 [facility] Calcium [Mass/Vol] 9.9 mg/dL 8.5-10.2 [facility] Chloride [Moles/Vol] 100 mmol/L 98-107 [facility] CO2 [Moles/Vol] 30 mmol/L 22-30 [facility] Creatinine [Mass/Vol] 0.72 mg/dL 0.58-0.96 [facility] Glucose [Mass/Vol] 98 mg/dL 74-99 [facility] Comment on above: The [place] Diabete s Association (ADA) provides guidance for [...] Standards of Medical Care in Diabetes 2016, [place] [employer]. Diabetes Care. 2016.39(Suppl 1). Potassium [Moles/Vol] 4.6 mmol/L 3.7-5.1 [facility] Sodium [Moles/Vol] 138 mmol/L 136-144 [facility] Urea nitrogen [Mass/Vol] 10 mg/dL 03-13 [facility] Laboratory - Specimen inform ationon 04-19-2024 Appearance (U) Clear Clear [facility] Color (U) Yellow Yellow [facility] Laboratory - Urinalysison Bacteria LM.HPF (Urine sed) [#/Area] Negative Negative [facility] Hyaline casts LM Ql (Urine sed) 0 /LPF 0 /LPF [facility] Leukocyte esterase Test strip Ql (U) Negative Negative [facility] Nitrite Ql (U) Negative Negative [facility] Protein Ql (U) Negative Negative [facility] Leukocytes [#/volume] correc gudelia for nucleated erythrocytes in Blood by Automated counon 04-19-2024 WBC corrected for nucl RBC Auto (Bld) [#/Vol] 5.51 k/uL 3.70-11.00 [facility] MCH Auto (RBC) [Entitic mass ]on 04-19-2024 MCH (RBC) [Entitic mass] 31.1 pg 26.0-34.0 [facility] MCHC Auto (RBC) [Mass/Vol]on 04-19-2024 MCHC (RBC) [Mass/Vol] 31.6 g/dL 30.5-36.0 [facility] MCV Auto (RBC) [Entitic vol] on 04-19-2024 MCV (RBC) [Entitic vol] 98.2 fL 80.0-100.0 [facility] No Panel Informationon 04-19 Urine Occult Blood Negative Negative [facility] Urine Random Creatinine 71.5 mg/dL 20.0-300.0 [facility] Urine Random Total Protein <4 mg/dL 0-20 [facility] Urine RBC 0-2 /HPF 0-2 /HPF [facility] Urine Squamous Epithelial Cells None Seen [HPF] [facility] Urine Urobilinogen 0.2 EU/dL 0.2-1.0 EU/dL [facility] Urine WBC 0-5 /HPF 0-5 /HPF [facility] Anti-Double Strand DNA Antibody 521 [IU]/mL High <=200 [facility] Comment on above: Negative: <200 IU/mL Equivocal: 201-300 IU/mLModerate Positive: 301-800 IU/mLStrong Positive: >801 IU/mL Anti-ds DNA IgG Ab (Crithidia) Negative Negative [facility] Comment on above: Crithidia luciliae a ssay is used as an aid in diagnosis of systemic lupus erythematosus (SLE). A negative result cannot rule out SLE. Low positive titers may be seen with other systemic autoimmune diseases. Clinical correlation is required. Estimated GFR (CKD-EPI) 100 mL/min/1.73m??? >=60 [facility] Comment on above: Estimated Glomerular [...] 04-19-2024 Nucleated RBC (Bld) [#/Vol] 10*3/uL <0.01 [facility] Platelet mean volume Auto (B ld) [Entitic vol]on 04-19-2024 Platelet mean volume (Bld) [Entitic vol] 10.2 fL 9.0-12.7 [facility] Platelets Auto (Bld) [#/Vol] on 04-19-2024 Platelets (Bld) [#/Vol] 311 10*3/uL 150-400 [facility] Prot/Creat Uron 04-19-2024 Protein/Creatinine (U) [Mass ratio] mg/g Normal <0.15 [facility] Comment on above: Order Comment: Speci men Type: BLOOD SPECIMEN Ordering Facility: [facility] Address: [address] [place] [address] Result Comment: Adul t Proteinuria Categories: <0.15 mg/mg is considered normal to mildly increased 0.15 - 0.50 mg/mg is considered moderately increased >0.50 mg/mg is considered severely increased KDIGO. (2013). KDIGO 2012 Clinical Practice Guideline for the Evaluation and Management of Chronic Kidney Disease. Official Journal of the International Society of Nephrology, 3(1), 1-150. Performed By: #### 2 157-6, 96351-6 #### [facility] CLIA [id number] [address] [place] [address] [place] Protein [Mass/volume] in Ser um or Plasmaon 04-19-2024 Protein [Mass/Vol] 7.6 g/dL 6.3-8.0 [facility] Protein/Creatinine (U) [Mass ratio]on 04-19-2024 Creatinine (U) [Mass/Vol] 71.5 mg/dL Normal 20.0-300.0 [facility] Comment on above: Order Comment: Donte davis Type: BLOOD SPECIMEN Ordering Facility: [facility] Address: [address] [place] [address] Performed By: #### 2 157-6, 49533-0 #### [facility] CLIA [id number] [address] [place] [address] [place] Protein (U) [Mass/Vol] mg/dL Normal 0-20 [facility] Comment on above: Order Comment: Grahami men Type: BLOOD SPECIMEN Ordering Facility: [facility] Address: [address] [place] [address] Performed By: #### 2 157-6, 11359-1 #### [facility] CLIA [id number] [address] [place] [address] [place] RBC Auto (Bld) [#/Vol]on RBC (Bld) [#/Vol] 4.41 10*6/uL 3.90-5.20 [facility] Serum or plasma anion gap de terminationon 04-19-2024 Anion gap [Moles/Vol] 8 mmol/L 8-15 [facility] Serum or plasma complement C 3 measurement (mass/volume)on 04-19-2024 Complement C3 [Mass/Vol] 148 mg/dL 86-166 [facility] Serum or plasma complement C 4 measurement (mass/volume)on 04-19-2024 Complement C4 [Mass/Vol] 22 mg/dL 13-46 [facility] Urinalysis complete panel (U )on 04-19-2024 Bacteria LM.HPF (Urine sed) [#/Area] Negative Negative /HPF [facility] Bilirubin Ql (U) Negative Negative [facility] Clarity (Unsp spec) Clear Clear [facility] Color (U) Yellow Yellow [facility] Epithelial cells LM.HPF (Urine sed) [#/Area] None Seen /HPF [facility] Glucose Test strip (U) [Mass/Vol] Negative Negative [facility] Hemoglobin Ql (U) Negative Negative [facility] Hyaline casts (Urine sed) [#/Area] 0 /[LPF] 0 /LPF [facility] Ketones Ql (U) Negative Negative [facility] Leukocyte esterase Test strip Ql (U) Negative Negative [facility] Nitrite Ql (U) Negative Negative [facility] pH (U) 7.0 [pH] NINF - 8.5 [facility] Protein (U) [Mass/Vol] Negative Negative Cl [facility] RBC LM.HPF (Urine sed) [#/Area] 0-2 /HPF 0-2 /HPF [facility] Specific gravity (U) [Rel density] 1.015 1.005 - 1.030 [facility] Urobilinogen Ql (U) 0.2 EU/dL 0.2-1.0 EU/dL [facility] WBC LM.HPF (Urine sed) [#/Area] 0-5 /HPF 0-5 /HPF [facility] This test was ginny toure and its performance characteristics determined by [facility]'s Iraj JJailene [facility] Pathology and Laboratory Medicine [place] ([facility]). It has not been cleared or approved by the FDA. [facility] is regulated under CLIA as qualified to perform high-complexity testing. This test is used for clinical purposes. It should not be regarded as investigational or for research. [facility] Bacteria LM.HPF (Urine sed) [#/Area] Negative Normal Negative [facility] Comment on above: Order Comment: Speci men Type: BLOOD SPECIMEN Ordering Facility: [facility] Address: [address] [place] [address] Performed By: #### 2 157-6, 05782-8 #### [facility] CLIA [id number] [address] [place] [address] [place] Bilirubin Ql (U) Negative Normal Negative [facility] Comment on above: Order Comment: Speci men Type: BLOOD SPECIMEN Ordering Facility: [facility] Address: [address] [place] [address] Performed By: #### 2 157-6, 86020-4 #### [facility] CLIA [id number] [address] [place] [address] [place] Clarity (Unsp spec) Clear Normal Clear [facility] Comment on above: Order Comment: Speci men Type: BLOOD SPECIMEN Ordering Facility: [facility] Address: [address] [place] [address] Performed By: #### 2 157-6, 75971-6 #### [facility] CLIA [id number] [address] [place] [address] [place] Color (U) Yellow Normal Yellow [facility] Comment on above: Order Comment: Speci men Type: BLOOD SPECIMEN Ordering Facility: [facility] Address: [address] [place] [address] Performed By: #### 2 157-6, 73374-6 #### [facility] CLIA [id number] [address] [place] [address] [place] Epithelial cells LM.HPF (Urine sed) [#/Area] None Seen Normal [facility] Comment on above: Order Comment: Speci men Type: BLOOD SPECIMEN Ordering Facility: [facility] Address: [address] [place] [address] Performed By: #### 2 157-6, 81098-9 #### [facility] CLIA [id number] [address] [place] [address] [place] Glucose Test strip (U) [Mass/Vol] Negative Normal Negative [facility] Comment on above: Order Comment: Speci men Type: BLOOD SPECIMEN Ordering Facility: [facility] Address: [address] [place] [address] Performed By: #### 2 157-6, 59599-1 #### [facility] CLIA [id number] [address] [place] [address] [place] Hemoglobin Ql (U) Negative Normal Negative [facility] Comment on above: Order Comment: Speci men Type: BLOOD SPECIMEN Ordering Facility: [facility] Address: [address] [place] [address] Performed By: #### 2 157-6, 00561-0 #### [facility] CLIA [id number] [address] [place] [address] [place] Hyaline casts (Urine sed) [#/Area] 0 /[LPF] Normal 0 /LPF [facility] Comment on above: Order Comment: Speci men Type: BLOOD SPECIMEN Ordering Facility: [facility] Address: [address] [place] [address] Performed By: #### 2 157-6, 85475-2 #### [facility] CLIA [id number] [address] [place] [address] [place] Ketones Ql (U) Negative Normal Negative [facility] Comment on above: Order Comment: Speci men Type: BLOOD SPECIMEN Ordering Facility: [facility] Address: [address] [place] [address] Performed By: #### 2 157-6, 26468-2 #### [facility] CLIA [id number] [address] [place] [address] [place] Leukocyte esterase Test strip Ql (U) Negative Normal Negative [facility] Comment on above: Order Comment: Speci men Type: BLOOD SPECIMEN Ordering Facility: [facility] Address: [address] [place] [address] Performed By: #### 2 157-6, 88095-4 #### [facility] CLIA [id number] [address] [place] [address] [place] Nitrite Ql (U) Negative Normal Negative [facility] Comment on above: Order Comment: Speci men Type: BLOOD SPECIMEN Ordering Facility: [facility] Address: [address] [place] [address] Performed By: #### 2 157-6, 94032-8 #### [facility] CLIA [id number] [address] [place] [address] [place] pH (U) 7.0 [pH] Normal <8.5 [facility] Comment on above: Order Comment: Speci men Type: BLOOD SPECIMEN Ordering Facility: [facility] Address: [address] [place] [address] Performed By: #### 2 157-6, 04501-8 #### [facility] CLIA [id number] [address] [place] [address] [place] Protein (U) [Mass/Vol] Negative Normal Negative [facility] Comment on above: Order Comment: Speci men Type: BLOOD SPECIMEN Ordering Facility: [facility] Address: [address] [place] [address] Performed By: #### 2 157-6, 65152-4 #### [facility] CLIA [id number] [address] [place] [address] [place] RBC LM.HPF (Urine sed) [#/Area] 0-2 /HPF Normal 0-2 /HPF [facility] Comment on above: Order Comment: Speci men Type: BLOOD SPECIMEN Ordering Facility: [facility] Address: [address] [place] [address] Performed By: #### 2 157-6, 38926-6 #### [facility] IA [id number] [address] [place] [address] [place] Specific gravity (U) [Rel density] 1.015 Normal 1.005-1.030 [facility] Comment on above: Order Comment: Speci men Type: BLOOD SPECIMEN Ordering Facility: [facility] Address: [address] [place] [address] Performed By: #### 2 157-6, 66624-4 #### [facility] CLIA [id number] [address] [place] [address] [place] Urobilinogen Ql (U) 0.2 EU/dL Normal 0.2-1.0 EU/dL [facility] Comment on above: Order Comment: Speci men Type: BLOOD SPECIMEN Ordering Facility: [facility] Address: [address] [place] [address] Performed By: #### 2 157-6, 88976-1 #### [facility] CLIA [id number] [address] [place] [address] [place] WBC LM.HPF (Urine sed) [#/Area] 0-5 /HPF Normal 0-5 /HPF [facility] Comment on above: Order Comment: Speci men Type: BLOOD SPECIMEN Ordering Facility: [facility] Address: [address] [place] [address] Performed By: #### 2 157-6, 26422-6 #### [facility] IA [id number] [address] [place] [address] [place] Urine protein/creatinine rat ioon 04-19-2024 Protein/Creatinine (U) [Ratio] <0.06 mg/mg <0.15 [facility] Comment on above: Adult Proteinuria Ca tegories:<0.15 [...] Crithidia luciliae Ql (S) Negative Normal Negative [facility] Comment on above: Order Comment: Speci men Type: BLOOD SPECIMENOrdering Facility: [facility] Address: [address] [place] [address] Result Comment: Crit hidia luciliae assay is used as an aid in diagnosis of systemic lupus erythematosus (SLE). A negative result cannot rule out SLE. Low positive titers may be seen with other systemic autoimmune diseases. Clinical correlation is required. Performed By: #### 6 457-6 ####[facility] [id number] [address] [facility] Cytologyon 03-23-2024 Cytology Normal [facility] Comment on above: Result Comment: [facility] [address] [place] [address] Gynecologic Cytology Consultation Patient Name:ANN DAVIDSONB:1970 (Age: 53)Gender:FTaken:4Reported:03/30/2024hysician(s):Marry Chung APRN-CNPCopy To: Rec. #:[id number]: #[id number] Final Cytologic Interpretation ThinPrep Pap Test (Cervical): Satisfactory for evaluation. NEGATIVE FOR INTRAEPITHELIAL LESION OR MALIGNANCY. jja/03/30/2024 [place] [address], License number: [id number]. 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 The Pap test is primarily effective for the diagnosis and prevention of squamous cell carcinoma. Regular screening is critical for prevention. ThinPrep liquid-based slides, which meet the Geothermal Field Technician criteria for automated screening, have been screened by the ThinPrep Imaging System (as of 05/10/07) along with an additional manual rescreening by a web site designer and, if indicated, by a pathologist. HIGH RISK HPV W/GENOon 03-23 HPV 31+33+35+39+45+51+52+5 6+58+59+66+68 DNA EMEKA+probe Ql (Cvx) HPV SPECIMEN TYPE ThinPrep HPV 16 Negative (qualifier value) HPV 18 Negative (qualifier value) OTHER HIGH RISK HPV Negative (qualifier value) HPV types 31,33,35,39,45,52,56,58, 59,66 and 68 DNA were undetectable. Normal [facility] Comment on above: Performed By: #### 7 1431-1 #### [facility] ([id number]) [address] [facility] [place], [place] [id number] [place] [address] LAB ([id number]) [address] [place] [address], [address] [place] [address] Laboratory - Chemistry and C hemistry - challengeon 03-07-2024 Bilirubin Ql (U) Negative [facility] Glucose (U) [Mass/Vol] Negative [facility] Ketones Ql (U) Negative [facility] pH (U) 5.0 [pH] [facility] Specific gravity (U) [Rel density] 1.025 [facility] Urobilinogen (U) [Mass/Vol] 0.2 mg/dL [facility] Laboratory - Specimen inform ationon 03-07-2024 Appearance (U) Clear [facility] Color (U) Yellow [facility] Laboratory - Urinalysison Leukocyte esterase Test strip Ql (U) Trace [facility] Nitrite Ql (U) Negative [facility] Protein Ql (U) Trace [facility] No Panel Informationon 03-07 Urine Occult Blood 2+ [facility] Urine Cultureon 03-07-2024 Bacteria identified Cx Nom (U) 25,000 colonies/ml mixed bacterial skin contaminants 2 Days PERFORMED BY: [facility] [address] [place] [address] PATHOLOGIST POLICE SPECIALIST ALICE MOORE M.D. Normal [facility] Comment on above: Performed By: #### C UU #### [facility] [address] Urine culture routineOrdered By: Nadege Lawson on 03-07-2024 Bacteria identified Cx Nom (U) 2 Days [facility] 25(OH)D3 SerPl-mCncon 2023 25-hydroxyvitamin D3 [Mass/Vol] 27.4 ng/mL Low 31.0-80.0 [facility] Comment on above: Order Comment: Speci men Type: BLOOD SPECIMEN Ordering Facility: [facility] Address: [address] [place] [address] Result Comment: Clas sification of 25 [place] Vitamin D status: Deficiency/Insufficiency: < or = 30 ng/ml. Sufficiency/Optimal Levels: 31-80 ng/mL Toxicity: > 100 ng/mL. Test performed by chemiluminescent immunoassay. Performed By: #### 2 157-6, 95664-8 #### [facility] CLIA [id number] [address] [place] [address] [place] ALONDRA BY IFA SCREENon 01-06-20 24 Nuclear Ab pattern (S) [Interp] Nuclear homogeneous Normal [facility] Comment on above: Order Comment: Speci men Type: BLOOD SPECIMEN Ordering Facility: [facility] Address: [address] [place] [address] Performed By: #### 2 157-6, 55046-9 #### [facility] CLIA [id number] [address] [place] [address] [place] Nuclear Ab Ql (S) Positive Abnormal Negative [facility] Comment on above: Order Comment: Donte davis Type: BLOOD SPECIMEN Ordering Facility: [facility] Address: [address] [place] [address] Result Comment: Anti -nuclear antibody test is used as an aid in diagnosis of systemic autoimmune diseases. Where positive and clinically warranted, follow-up using disease-specific testing is recommended. Low positive titers are not uncommon with advanced age, certain chronic infections, and malignancies among others. Test methodology: Indirect fluorescence immunoassay (IFA) using HEp-2 cells. 1:160 Performed By: #### 2 157-6, 45173-3 #### [facility] CLIA [id number] [address] [place] [address] [place] Albumin [Mass/volume] in Ser um or Plasmaon 01-06-2024 Albumin [Mass/Vol] 4.66 g/dL 3.43-5.41 [facility] Basophils Auto (Bld) [#/Vol] on 01-06-2024 Basophils (Bld) [#/Vol] 0.06 10*3/uL <0.11 [facility] Basophils/100 WBC Auto (Bld) on 01-06-2024 Basophils/100 WBC (Bld) 1.3 % [facility] Blood manual differential co mment interpretation narrativeon 01-06-2024 Manual differential comment Killian (Bld) [Interp] Auto [facility] C-REACTIVE PROTEINon 024 CRP [Mass/Vol] mg/dL NINF - 0.9 mg/dL [facility] C3 COMPLEMENTon 01-06-2024 Complement C3 [Mass/Vol] 155 mg/dL 86 - 166 mg/dL [facility] C3 SerPl-mCncon 01-06-2024 Complement C3 [Mass/Vol] 155 mg/dL Normal 86-166 [facility] Comment on above: Order Comment: Donte davis Type: BLOOD SPECIMEN Ordering Facility: [facility] Address: [address] [place] [address] Performed By: #### 2 157-6, 38299-2 #### [facility] CLIA [id number] [address] [place] [address] [place] C4 COMPLEMENTon 01-06-2024 Complement C4 [Mass/Vol] 25 mg/dL 13 - 46 mg/dL [facility] C4 SerPl-mCncon 01-06-2024 Complement C4 [Mass/Vol] 25 mg/dL Normal 13-46 [facility] Comment on above: Order Comment: Speci men Type: BLOOD SPECIMEN Ordering Facility: [facility] Address: [address] [place] [address] Performed By: #### 2 157-6, 33715-7 #### [facility] CLIA [id number] [address] [place] [address] [place] CBC W Auto Differential pane l (Bld)on 01-06-2024 Basophils (Bld) [#/Vol] 0.06 10*3/uL [facility] Basophils/100 WBC (Bld) 1.3 % [facility] Differential cell count method Nom (Bld) Auto [facility] Eosinophils (Bld) [#/Vol] 0.19 10*3/uL [facility] Eosinophils/100 WBC (Bld) 4.1 % [facility] Erythrocyte distribution width (RBC) [Ratio] 12.2 % 11.5 - 15.0 % [facility] Hematocrit (Bld) [Volume fraction] 44.3 % 36.0 - 46.0 % [facility] Hemoglobin (Bld) [Mass/Vol] 14.1 g/dL 11.5 - 15.5 g/dL [facility] Immature granulocytes (Bld) [#/Vol] NINF [facility] Immature granulocytes/100 WBC (Bld) 0.2 % [facility] Lymphocytes (Bld) [#/Vol] 1.86 10*3/uL [facility] Lymphocytes/100 WBC (Bld) 40.2 % [facility] MCH (RBC) [Entitic mass] 31.3 pg 26.0 - 34.0 pg [facility] MCHC (RBC) [Mass/Vol] 31.8 g/dL 30.5 - 36.0 g/dL [facility] MCV (RBC) [Entitic vol] 98.2 fL 80.0 - 100.0 fL [facility] Monocytes (Bld) [#/Vol] 0.43 10*3/uL NINF [facility] Monocytes/100 WBC (Bld) 9.3 % [facility] Neutrophils (Bld) [#/Vol] 2.08 10*3/uL [facility] Neutrophils/100 WBC (Bld) 44.9 % [facility] Nucleated RBC (Bld) [#/Vol] NINF [facility] Nucleated RBC/100 WBC (Bld) [Ratio] 0.0 % /100 WBC [facility] Platelet mean volume (Bld) [Entitic vol] 10.4 fL 9.0 - 12.7 fL [facility] Platelets (Bld) [#/Vol] 285 10*3/uL [facility] RBC (Bld) [#/Vol] 4.51 10*6/uL 3.90 - 5.2 0 m/uL [facility] WBC (Bld) [#/Vol] 4.63 10*3/uL [facility] Basophils (Bld) [#/Vol] 0.06 10*3/uL Normal <0.11 [facility] Comment on above: Order Comment: Speci men Type: BLOOD SPECIMEN Ordering Facility: [facility] Address: [address] [place] [address] Performed By: #### 2 157-6, 21566-1 #### [facility] CLIA [id number] [address] [place] [address] [place] Basophils/100 WBC (Bld) 1.3 % Normal [facility] Comment on above: Order Comment: Speci men Type: BLOOD SPECIMEN Ordering Facility: [facility] Address: [address] [place] [address] Performed By: #### 2 157-6, 72890-4 #### [facility] CLIA [id number] [address] [place] [address] [place] Differential cell count method Nom (Bld) Auto Normal [facility] Comment on above: Order Comment: Speci men Type: BLOOD SPECIMEN Ordering Facility: [facility] Address: [address] [place] [address] Performed By: #### 2 157-6, 88903-2 #### [facility] CLIA [id number] [address] [place] [address] [place] Eosinophils (Bld) [#/Vol] 0.19 10*3/uL Normal <0.46 [facility] Comment on above: Order Comment: Speci men Type: BLOOD SPECIMEN Ordering Facility: [facility] Address: [address] [place] [address] Performed By: #### 2 157-6, 67239-0 #### [facility] CLIA [id number] [address] [place] [address] [place] Eosinophils/100 WBC (Bld) 4.1 % Normal [facility] Comment on above: Order Comment: Speci men Type: BLOOD SPECIMEN Ordering Facility: [facility] Address: [address] [place] [address] Performed By: #### 2 157-6, 00218-1 #### [facility] CLIA [id number] [address] [place] [address] [place] Erythrocyte distribution width (RBC) [Ratio] 12.2 % Normal 11.5-15.0 [facility] Comment on above: Order Comment: Speci men Type: BLOOD SPECIMEN Ordering Facility: [facility] Address: [address] [place] [address] Performed By: #### 2 157-6, 78093-2 #### [facility] CLIA [id number] [address] [place] [address] [place] Hematocrit (Bld) [Volume fraction] 44.3 % Normal 36.0-46.0 [facility] Comment on above: Order Comment: Speci men Type: BLOOD SPECIMEN Ordering Facility: [facility] Address: [address] [place] [address] Performed By: #### 2 157-6, 62430-1 #### [facility] CLIA [id number] [address] [place] [address] [place] Hemoglobin (Bld) [Mass/Vol] 14.1 g/dL Normal 11.5-15.5 [facility] Comment on above: Order Comment: Speci men Type: BLOOD SPECIMEN Ordering Facility: [facility] Address: [address] [place] [address] Performed By: #### 2 157-6, 43020-6 #### [facility] CLIA [id number] [address] [place] [address] [place] Immature granulocytes (Bld) [#/Vol] 10*3/uL Normal <0.10 [facility] Comment on above: Order Comment: Speci men Type: BLOOD SPECIMEN Ordering Facility: [facility] Address: [address] [place] [address] Performed By: #### 2 157-6, 36561-4 #### [facility] CLIA [id number] [address] [place] [address] [place] Immature granulocytes/100 WBC (Bld) 0.2 % Normal [facility] Comment on above: Order Comment: Speci men Type: BLOOD SPECIMEN Ordering Facility: [facility] Address: [address] [place] [address] Performed By: #### 2 157-6, 11540-1 #### [facility] CLIA [id number] [address] [place] [address] [place] Lymphocytes (Bld) [#/Vol] 1.86 10*3/uL Normal 1.00-4.00 [facility] Comment on above: Order Comment: Speci men Type: BLOOD SPECIMEN Ordering Facility: [facility] Address: [address] [place] [address] Performed By: #### 2 157-6, 40009-3 #### [facility] CLIA [id number] [address] [place] [address] [place] Lymphocytes/100 WBC (Bld) 40.2 % Normal [facility] Comment on above: Order Comment: Speci men Type: BLOOD SPECIMEN Ordering Facility: [facility] Address: [address] [place] [address] Performed By: #### 2 157-6, 22978-7 #### [facility] CLIA [id number] [address] [place] [address] [place] MCH (RBC) [Entitic mass] 31.3 pg Normal 26.0-34.0 [facility] Comment on above: Order Comment: Speci men Type: BLOOD SPECIMEN Ordering Facility: [facility] Address: [address] [place] [address] Performed By: #### 2 157-6, 03504-4 #### [facility] CLIA [id number] [address] [place] [address] [place] MCHC (RBC) [Mass/Vol] 31.8 g/dL Normal 30.5-36.0 [facility] Comment on above: Order Comment: Speci men Type: BLOOD SPECIMEN Ordering Facility: [facility] Address: [address] [place] [address] Performed By: #### 2 157-6, 82644-2 #### [facility] CLIA [id number] [address] [place] [address] [place] MCV (RBC) [Entitic vol] 98.2 fL Normal 80.0-100.0 [facility] Comment on above: Order Comment: Speci men Type: BLOOD SPECIMEN Ordering Facility: [facility] Address: [address] [place] [address] Performed By: #### 2 157-6, 34113-7 #### [facility] CLIA [id number] [address] [place] [address] [place] Monocytes (Bld) [#/Vol] 0.43 10*3/uL Normal <0.87 [facility] Comment on above: Order Comment: Speci men Type: BLOOD SPECIMEN Ordering Facility: [facility] Address: [address] [place] [address] Performed By: #### 2 157-6, 40033-2 #### [facility] CLIA [id number] [address] [place] [address] [place] Monocytes/100 WBC (Bld) 9.3 % Normal [facility] Comment on above: Order Comment: Speci men Type: BLOOD SPECIMEN Ordering Facility: [facility] Address: [address] [place] [address] Performed By: #### 2 157-6, 85410-6 #### [facility] CLIA [id number] [address] [place] [address] [place] Neutrophils (Bld) [#/Vol] 2.08 10*3/uL Normal 1.45-7.50 [facility] Comment on above: Order Comment: Speci men Type: BLOOD SPECIMEN Ordering Facility: [facility] Address: [address] [place] [address] Performed By: #### 2 157-6, 18286-6 #### [facility] CLIA [id number] [address] [place] [address] [place] Neutrophils/100 WBC (Bld) 44.9 % Normal [facility] Comment on above: Order Comment: Speci men Type: BLOOD SPECIMEN Ordering Facility: [facility] Address: [address] [place] [address] Performed By: #### 2 157-6, 85425-9 #### [facility] CLIA [id number] [address] [place] [address] [place] Nucleated RBC (Bld) [#/Vol] 10*3/uL Normal <0.01 [facility] Comment on above: Order Comment: Speci men Type: BLOOD SPECIMEN Ordering Facility: [facility] Address: [address] [place] [address] Performed By: #### 2 157-6, 47616-3 #### [facility] CLIA [id number] [address] [place] [address] [place] Nucleated RBC/100 WBC (Bld) [Ratio] 0.0 /100 WBC Normal [facility] Comment on above: Order Comment: Speci men Type: BLOOD SPECIMEN Ordering Facility: [facility] Address: [address] [place] [address] Performed By: #### 2 157-6, 78348-3 #### [facility] CLIA [id number] [address] [place] [address] [place] Platelet mean volume (Bld) [Entitic vol] 10.4 fL Normal 9.0-12.7 [facility] Comment on above: Order Comment: Speci men Type: BLOOD SPECIMEN Ordering Facility: [facility] Address: [address] [place] [address] Performed By: #### 2 157-6, 98233-8 #### [facility] CLIA [id number] [address] [place] [address] [place] Platelets (Bld) [#/Vol] 285 10*3/uL Normal 150-400 [facility] Comment on above: Order Comment: Speci men Type: BLOOD SPECIMEN Ordering Facility: [facility] Address: [address] [place] [address] Performed By: #### 2 157-6, 83877-7 #### [facility] CLIA [id number] [address] [place] [address] [place] RBC (Bld) [#/Vol] 4.51 10*6/uL Normal 3.90-5.20 [facility] Comment on above: Order Comment: Speci men Type: BLOOD SPECIMEN Ordering Facility: [facility] Address: [address] [place] [address] Performed By: #### 2 157-6, 73457-1 #### [facility] CLIA [id number] [address] [place] [address] [place] WBC (Bld) [#/Vol] 4.63 10*3/uL Normal 3.70-11.00 [facility] Comment on above: Order Comment: Speci men Type: BLOOD SPECIMEN Ordering Facility: [facility] Address: [address] [place] [address] Performed By: #### 2 157-6, 94577-9 #### [facility] CLIA [id number] [address] [place] [address] [place] CK SerPl-cCncon 01-06-2024 CK [Catalytic activity/Vol] 119 U/L Normal 42-196 [facility] Comment on above: Order Comment: Speci men Type: BLOOD SPECIMEN Ordering Facility: [facility] Address: [address] [place] [address] Performed By: #### 2 157-6, 95791-9 #### [facility] CLIA [id number] [address] [place] [address] [place] CNOVon 01-06-2024 CNOV Office Visit (BEKAH ) -------- STACIE DAVIDSON ([id number]) 1970 F Date Time Provider Department 01/06/24 9:30 AM TIM [facility] During your visit today, we recorded the following information about you: Pulse Blood pressure Weight Height 85/minute 130/74 75 kg 1.549 m Tim Plaza MD 01/06/2024 11:17 AM Signed [facility] Date of Service: 01/06/2024 Patient: Stacie Davidson Medical Record: [id number] Primary Care Physician: Marry Schroeder CNP, SALES REPRESENTATIVE [employer] Referring Provider: Marry Schroeder CNP ([facility]) [facility] [address] [facility] [address] Last Rheumatology visit: None at [facility] Chief complaint: Consult (Pos alondra test. [...] traZODone (DESYREL) (more content not included)... Normal [facility] CREATINE KINASE/CKon 024 CK [Catalytic activity/Vol] 119 U/L 42 - 196 U/L [facility] CRP SerPl-mCncon 01-06-2024 CRP [Mass/Vol] mg/L Normal <0.9 [facility] Comment on above: Order Comment: Speci men Type: BLOOD SPECIMEN Ordering Facility: [facility] Address: [address] [place] [address] [place], [place] [address] Performed By: #### 2 157-6, 26767-1 #### [facility] CLIA [id number] [address] [place] [address] [place] Centromere Ab IF Ql (S)on Centromere Ab Qn (S) <0.2 Normal <1.0 [facility] Comment on above: Order Comment: Speci men Type: BLOOD SPECIMENOrdering Facility: [facility] Address: [address] [place] [address] Result Comment: Anti -centromere antibody is used as in aid in diagnosis of systemic sclerosis. Clinical correlation is required. Test Methodology: Multiplex flow immunoassay. Performed By: #### 1 7791-5, 69755-5, 18850-8, 03296-4, 13143-9, 02186-8, 13164-2, 96900-2 ####[facility] [id number] [address] [place] CENTROMERE AB QUAL Negative Normal Negative [facility] Comment on above: Order Comment: Speci men Type: BLOOD SPECIMENOrdering Facility: [facility] Address: [address] [place] [address] Performed By: #### 1 7791-5, 73645-9, 71637-9, 66638-3, 07186-6, 70576-8, 62956-0, 70105-8 ####[facility] [id number] [place] [address] [place] Chromatin Ab Qnon 01-06-2024 CHROMATIN AB QUAL Negative Normal Negative [facility] Comment on above: Order Comment: Speci men Type: BLOOD SPECIMENOrdering Facility: [facility] Address: [address] [place] [address] Performed By: #### 1 7791-5, 52000-9, 85668-8, 60095-5, 86937-5, 15081-7, 91668-1, 99161-4 ####[facility] [id number] [address] [place] Chromatin Ab SerPl-aCncon Chromatin Ab Qn <0.2 Normal <1.0 [facility] Comment on above: Order Comment: Speci men Type: BLOOD SPECIMENOrdering Facility: [facility] Address: [address] [place] [address] Result Comment: Test Methodology: Multiplex flow immunoassay. Performed By: #### 1 7791-5, 97057-5, 04926-3, 76199-3, 83653-7, 12674-0, 69375-1, 72788-7 ####[facility] [id number] [address] [facility] Comprehensive metabolic 2000 panelon 01-06-2024 Albumin [Mass/Vol] 4.6 g/dL 3.9 - 4.9 g/dL [facility] ALP [Catalytic activity/Vol] 77 U/L 34 - 123 U/L [facility] ALT [Catalytic activity/Vol] 22 U/L 7 - 38 U/L [facility] Anion gap [Moles/Vol] 15 mmol/L 9 - 18 mmol/L [facility] AST [Catalytic activity/Vol] 21 U/L 13 - 35 U/L [facility] Bilirubin [Mass/Vol] 0.3 mg/dL 0.2 - 1 .3 mg/dL [facility] Calcium [Mass/Vol] 9.8 mg/dL 8.5 - 10. 2 mg/dL [facility] Chloride [Moles/Vol] 100 mmol/L 97 - 10 5 mmol/L [facility] CO2 [Moles/Vol] 25 mmol/L 22 - 30 mmol/L [facility] Creatinine [Mass/Vol] 0.75 mg/dL 0.58 - 0.96 mg/dL [facility] GFR/1.73 sq M.predicted among non-blacks MDRD (S/P/Bld) [Vol rate/Area] 95 mL/min/{1.73_m2} - PINF [facility] Comment on above: Estimated Glomerular Filtration [...] [Mass/Vol] 92 mg/dL 74 - 99 mg/dL [facility] Comment on above: The [place] Di[employer] Association (ADA) provides guidance for [...] Standards of Medical Care in Diabetes 2016, [place] [employer]. Diabetes Care. 2016.39(Suppl 1). Potassium [Moles/Vol] 4.0 mmol/L 3.7 - 5.1 mmol/L [facility] Protein [Mass/Vol] 7.7 g/dL 6.3 - 8.0 g/dL [facility] Sodium [Moles/Vol] 140 mmol/L 136 - 144 mmol/L [facility] Urea nitrogen [Mass/Vol] 13 mg/dL 7 - 21 mg/dL [facility] Albumin [Mass/Vol] 4.6 g/dL Normal 3.9-4.9 [facility] Comment on above: Order Comment: Donte davis Type: BLOOD SPECIMEN Ordering Facility: [facility] Address: [address] [place] [address] Performed By: #### 2 157-6, 94292-4 #### [facility] CLIA [id number] [address] [place] [address] [place] ALP [Catalytic activity/Vol] 77 U/L Normal 34-123 [facility] Comment on above: Order Comment: Donte davis Type: BLOOD SPECIMEN Ordering Facility: [facility] Address: [address] [place] [address] Performed By: #### 2 157-6, 35863-5 #### [facility] CLIA [id number] [address] [place] [address] [place] ALT [Catalytic activity/Vol] 22 U/L Normal 7-38 [facility] Comment on above: Order Comment: Speci men Type: BLOOD SPECIMEN Ordering Facility: [facility] Address: [address] [place] [address] Performed By: #### 2 157-6, 00496-6 #### [facility] CLIA [id number] [address] [place] [address] [place] Anion gap [Moles/Vol] 15 mmol/L Normal 9-18 [facility] Comment on above: Order Comment: Speci men Type: BLOOD SPECIMEN Ordering Facility: [facility] Address: [address] [place] [address] Performed By: #### 2 157-6, 37223-4 #### [facility] CLIA [id number] [address] [place] [address] [place] AST [Catalytic activity/Vol] 21 U/L Normal 13-35 [facility] Comment on above: Order Comment: Speci men Type: BLOOD SPECIMEN Ordering Facility: [facility] Address: [address] [place] [address] Performed By: #### 2 157-6, 57702-1 #### [facility] CLIA [id number] [address] [place] [address] [place] Bilirubin [Mass/Vol] 0.3 mg/dL Normal 0.2-1.3 [facility] Comment on above: Order Comment: Speci men Type: BLOOD SPECIMEN Ordering Facility: [facility] Address: [address] [place] [address] Performed By: #### 2 157-6, 07421-7 #### [facility] CLIA [id number] [address] [place] [address] [place] Calcium [Mass/Vol] 9.8 mg/dL Normal 8.5-10.2 [facility] Comment on above: Order Comment: Speci men Type: BLOOD SPECIMEN Ordering Facility: [facility] Address: [address] [place] [address] Performed By: #### 2 157-6, 47852-5 #### [facility] CLIA [id number] [address] [place] [address] [place] Chloride [Moles/Vol] 100 mmol/L Normal 97-105 [facility] Comment on above: Order Comment: Speci men Type: BLOOD SPECIMEN Ordering Facility: [facility] Address: [address] [place] [address] Performed By: #### 2 157-6, 68676-8 #### [facility] CLIA [id number] [address] [place] [address] [place] CO2 [Moles/Vol] 25 mmol/L Normal 22-30 [facility] Comment on above: Order Comment: Speci men Type: BLOOD SPECIMEN Ordering Facility: [facility] Address: [address] [place] [address] Performed By: #### 2 157-6, 68963-4 #### [facility] CLIA [id number] [address] [place] [address] [place] Creatinine [Mass/Vol] 0.75 mg/dL Normal 0.58-0.96 [facility] Comment on above: Order Comment: Speci men Type: BLOOD SPECIMEN Ordering Facility: [facility] Address: [address] [place] [address] Performed By: #### 2 157-6, 38423-6 #### [facility] CLIA [id number] [address] [place] [address] [place] Creatinine and Glomerular filtration rate.predicted panel (S/P/Bld) 95 mL/min/1.73m??? Normal >=60 [facility] Comment on above: Order Comment: Speci men Type: BLOOD SPECIMEN Ordering Facility: [facility] Address: [address] [place] [address] Result Comment: Petra mated Glomerular Filtration Rate [...] actual GFR. Performed By: #### 2 157-6, 18330-4 #### [facility] CLIA [id number] [address] [place] [address] [place] Glucose [Mass/Vol] 92 mg/dL Normal 74-99 [facility] Comment on above: Order Comment: Donte davis Type: BLOOD SPECIMEN Ordering Facility: [facility] Address: [address] [place] [address] Result Comment: The [place] Diabetes Association (ADA) provides guidance for cutoff [...] Standards of Medical Care in Diabetes 2016, [place] [employer]. Diabetes Care. 2016.39(Suppl 1). Performed By: #### 2 157-6, 08564-1 #### [facility] CLIA [id number] [address] [place] [address] [place] Potassium [Moles/Vol] 4.0 mmol/L Normal 3.7-5.1 [facility] Comment on above: Order Comment: Donte davis Type: BLOOD SPECIMEN Ordering Facility: [facility] Address: [address] [place] [address] Performed By: #### 2 157-6, 78756-3 #### [facility] CLIA [id number] [address] [place] [address] [place] Protein [Mass/Vol] 7.7 g/dL Normal 6.3-8.0 [facility] Comment on above: Order Comment: Speci men Type: BLOOD SPECIMEN Ordering Facility: [facility] Address: [address] [place] [address] Performed By: #### 2 157-6, 92613-1 #### [facility] CLIA [id number] [address] [place] [address] [place] Sodium [Moles/Vol] 140 mmol/L Normal 136-144 [facility] Comment on above: Order Comment: Speci men Type: BLOOD SPECIMEN Ordering Facility: [facility] Address: [address] [place] [address] Performed By: #### 2 157-6, 03462-6 #### [facility] CLIA [id number] [address] [place] [address] [place] Urea nitrogen [Mass/Vol] 13 mg/dL Normal 7-21 [facility] Comment on above: Order Comment: Speci men Type: BLOOD SPECIMEN Ordering Facility: [facility] Address: [address] [place] [address] Performed By: #### 2 157-6, 05638-9 #### [facility] CLIA [id number] [address] [place] [address] [place] Cyclic citrullinated peptide IgG Qnon 01-06-2024 CCP ANTIBODY IGG QUALITATIVE Negative Normal Negative [facility] Comment on above: Order Comment: Speci men Type: BLOOD SPECIMENOrdering Facility: [facility] Address: [address] [place] [address] Performed By: #### 3 3935-8 ####[facility] [id number] [place] [address] [place] DNA double strand Ab IA Qn ( S)on 01-06-2024 DNA ANTIBODY 514 IU/mL High <=200 [facility] Comment on above: Order Comment: Speci men Type: BLOOD SPECIMEN Ordering Facility: [facility] Address: [address] [place] [address] Result Comment: Nega tive: <200 IU/mL Equivocal: 201-300 IU/mL Moderate Positive: 301-800 IU/mL Strong Positive: >801 IU/mL Performed By: #### 2 157-6, 00653-0 #### [facility] CLIA [id number] [address] [place] [address] [place] DNA ANTIBODY QUALITATIVE INTERPRETATION Positive Abnormal Negative [facility] Comment on above: Order Comment: Speci men Type: BLOOD SPECIMEN Ordering Facility: [facility] Address: [address] [place] [address] Performed By: #### 2 157-6, 68666-8 #### [facility] CLIA [id number] [address] [place] [address] [place] DONALD Jo1 Ab Ser-aCncon 2023 Mariaa-1 extractable nuclear Ab Qn (S) <0.2 Normal <1.0 [facility] Comment on above: Order Comment: Speci men Type: BLOOD SPECIMENOrdering Facility: [facility] Address: [address] [place] [address] Performed By: #### 1 7791-5, 49166-4, 12946-3, 40582-7, 32348-2, 06487-6, 53409-3, 55432-6 ####[facility] [id number] [place] [address] [place] DONALD ACCIDENT EXAMINER Ab Ser-aCncon 2023 Ribonucleoprotein extractable nuclear Ab Qn (S) <0.2 Normal <1.0 [facility] Comment on above: Order Comment: Speci men Type: BLOOD SPECIMENOrdering Facility: [facility] Address: [address] [place] [address] Performed By: #### 1 7791-5, 30414-0, 42728-3, 90529-9, 95606-0, 83509-0, 50059-5, 68706-9 ####[facility] [id number] [place] [address] [place] DONALD SM IgG Ser-aCncon 2023 English extractable nuclear IgG Qn (S) <0.2 Normal <1.0 [facility] Comment on above: Order Comment: Speci men Type: BLOOD SPECIMENOrdering Facility: [facility] Address: [address] [place] [address] Performed By: #### 1 7791-5, 00407-0, 91350-1, 07304-4, 56454-6, 00024-3, 01367-6, 94866-4 ####[facility] [id number] [place] [address] [place] DONALD SS-A Ab Ser-aCncon 01-05 Sjogrens syndrome-A extractable nuclear Ab Qn (S) 0.3 AI Normal <1.0 [facility] Comment on above: Order Comment: Speci men Type: BLOOD SPECIMENOrdering Facility: [facility] Address: [address] [place] [address] Result Comment: Test Methodology: Multiplex flow immunoassay. Performed By: #### 1 7791-5, 63959-7, 39808-0, 41941-1, 42506-8, 07163-7, 82022-9, 63513-8 ####[facility] [id number] [place] [address] [place] DONALD SS-B Ab Ser-aCncon 01-05 Sjogrens syndrome-B extractable nuclear Ab Qn (S) <0.2 Normal <1.0 [facility] Comment on above: Order Comment: Speci men Type: BLOOD SPECIMENOrdering Facility: [facility] Address: [address] [place] [address] Result Comment: Anti -SSB (anti-La) antibody is used as an aid in diagnosis of a variety of systemic autoimmune diseases, especially for Sjogren's syndrome and systemic lupus erythematosus. Clinical correlation is required. Test Methodology: Multiplex flow immunoassay. Performed By: #### 1 7791-5, 32557-3, 86267-1, 28151-3, 12855-2, 63976-2, 68726-8, 52149-2 ####[facility] [id number] [place] [address] [place] ESR Westergren method (Bld) [Velocity]on 01-06-2024 ESR (Bld) [Velocity] 5 mm/h [facility] Interpretation and review of laboratory results Normal [facility] ESR (Bld) [Velocity] 5 mm/h Normal 0-20 [facility] Comment on above: Order Comment: Speci men Type: BLOOD SPECIMEN Ordering Facility: [facility] Address: [address] [place] [address] Performed By: #### 2 157-6, 39479-4 #### [facility] CLIA [id number] [address] [place] [address] [place] Eosinophils/100 WBC Auto (Bl d)on 01-06-2024 Eosinophils/100 WBC (Bld) 4.1 % [facility] Erythrocyte distribution wid th Auto (RBC) [Ratio]on 01-06-2024 Erythrocyte distribution width (RBC) [Ratio] 12.2 % 11.-15.0 [facility] Hematocrit Auto (Bld) [Volum e fraction]on 01-06-2024 Hematocrit (Bld) [Volume fraction] 44.3 % 36.0-46.0 [facility] Hemoglobin [Mass/volume] in Bloodon 01-06-2024 Hemoglobin (Bld) [Mass/Vol] 14.1 g/dL 11.5-15.5 [facility] Mariaa-1 extractable nuclear Ab Qn (S)on 01-06-2024 MARIAA 1 ANTIBODY QUAL Negative Normal Negative [facility] Comment on above: Order Comment: Speci men Type: BLOOD SPECIMENOrdering Facility: [facility] [address]: [address] [facility] [place] [facility] [address] Result Comment: Anti -MARIAA-1 antibody is used as an aid in diagnosis of polymyositis and dermatomyositis especially with pulmonary involvement. A negative result cannot rule out polymyositis or dermatomyositis. Clinical correlation is required. Test Methodology: Multiplex flow immunoassay. Performed By: #### 1 7791-5, 76303-4, 38460-7, 32332-4, 26161-8, 86499-6, 41597-9, 67445-3 ####[facility] [id number] [place] [address] [place] Laboratory - Chemistry and C hemistry - challengeon 01-06-2024 Albumin [Mass/Vol] 4.6 g/dL 3.9-4.9 [facility] ALP [Catalytic activity/Vol] 77 U/L 34-123 [facility] ALT [Catalytic activity/Vol] 22 U/L 7-38 [facility] AST [Catalytic activity/Vol] 21 U/L 13-35 [facility] Bilirubin [Mass/Vol] 0.3 mg/dL 0.2-1.3 [facility] Calcium [Mass/Vol] 9.8 mg/dL 8.5-10.2 [facility] Chloride [Moles/Vol] 100 mmol/L 97-105 [facility] CK [Catalytic activity/Vol] 119 U/L 42-196 [facility] CO2 [Moles/Vol] 25 mmol/L 22-30 [facility] Creatinine [Mass/Vol] 0.75 mg/dL 0.58-0.96 [facility] Glucose [Mass/Vol] 92 mg/dL 74-99 [facility] Comment on above: The [place] Di[employer] s Association (ADA) provides guidance for [...] Standards of Medical Care in Diabetes 2016, [place] [employer]. Diabetes Care. 2016.39(Suppl 1). Potassium [Moles/Vol] 4.0 mmol/L 3.7-5.1 [facility] Protein [Mass/Vol] 0.00 g/dL <=0.00 [facility] Sodium [Moles/Vol] 140 mmol/L 136-144 [facility] Urea nitrogen [Mass/Vol] 13 mg/dL 7-21 [facility] Laboratory - Hematology and Cell countson 01-06-2024 Eosinophils (Bld) [#/Vol] 0.19 10*3/uL <0.46 [facility] ESR (Bld) [Velocity] 5 mm/h 0-20 [facility] Immature granulocytes/100 WBC (Bld) 0.2 % [facility] Leukocytes [#/volume] correc gudelia for nucleated erythrocytes in Blood by Automated counon 01-06-2024 WBC corrected for nucl RBC Auto (Bld) [#/Vol] 4.63 k/uL 3.70-11.00 [facility] Lymphocytes Auto (Bld) [#/Vo l]on 01-06-2024 Lymphocytes (Bld) [#/Vol] 1.86 10*3/uL 1.00-4.00 [facility] Lymphocytes/100 WBC Auto (Bl d)on 01-06-2024 Lymphocytes/100 WBC (Bld) 40.2 % [facility] MCH Auto (RBC) [Entitic mass ]on 01-06-2024 MCH (RBC) [Entitic mass] 31.3 pg 26.0-34.0 [facility] MCHC Auto (RBC) [Mass/Vol]on 01-06-2024 MCHC (RBC) [Mass/Vol] 31.8 g/dL 30.5-36.0 [facility] MCV Auto (RBC) [Entitic vol] on 01-06-2024 MCV (RBC) [Entitic vol] 98.2 fL 80.0-100.0 [facility] Monocytes Auto (Bld) [#/Vol] on 01-06-2024 Monocytes (Bld) [#/Vol] 0.43 10*3/uL <0.87 [facility] Monocytes/100 WBC Auto (Bld) on 01-06-2024 Monocytes/100 WBC (Bld) 9.3 % [facility] Neutrophils Auto (Bld) [#/Vo l]on 01-06-2024 Neutrophils (Bld) [#/Vol] 2.08 10*3/uL 1.45-7.50 [facility] Neutrophils/100 WBC Auto (Bl d)on 01-06-2024 Neutrophils/100 WBC (Bld) 44.9 % [facility] No Panel Informationon 01-05 Interpretation and review of laboratory results Normal [facility] Interpretation and review of laboratory results Normal [facility] Anti-Centromere Ab Interpretation Negative Negative [facility] Anti-Double Strand DNA Antibody 514 [IU]/mL High <=200 [facility] Comment on above: Negative: <200 IU/mL Equivocal: 201-300 IU/mLModerate Positive: 301-800 IU/mLStrong Positive: >801 IU/mL Anti-ds DNA IgG Ab (Crithidia) Positive Negative [facility] Anti-ds DNA IgG Ab (Crithidia) Negative Negative [facility] Comment on above: Crithidia luciliae a ssay is used as an aid in diagnosis of systemic lupus erythematosus (SLE). A negative result cannot rule out SLE. Low positive titers may be seen with other systemic autoimmune diseases. Clinical correlation is required. Anti-English Antibody Interpretation Negative Negative [facility] Comment on above: Anti-Sm (English) anti body is used as an aid in diagnosis of systemic lupus erythematosus and its presence is associated with renal disease. A negative result cannot rule out systemic lupus erythematosus. Clinical correlation is required. Test Methodology: Multiplex flow immunoassay. C-Reactive Protein, Quantitative <0.3 mg/dL <0.9 [facility] Chromatin Qualitative Negative Negative [facility] Cyclic Citrullinated Peptide IgG Ab <15 Units <20 [facility] Cyclic Citrullinated Peptide Interp Negative Negative [facility] Estimated GFR (CKD-EPI) 95 mL/min/1.73m??? >=60 [facility] Comment on above: Estimated Glomerular [...] Immature Granulocyte # (Auto) <0.03 k/uL <0.10 [facility] MARIAA-1 Antibody Interpretation Negative Negative [facility] Comment on above: Anti-MARIAA-1 antibody i s used as an aid in diagnosis of polymyositis and dermatomyositis especially with pulmonary involvement. A negative result cannot rule out polymyositis or dermatomyositis. Clinical correlation is required.Test Methodology: Multiplex flow immunoassay. Miscellaneous Test 6 See comment [facility] Comment on above: Not Applicable. Miscellaneous Test Comment Reviewed by Dr. Shaheen Wilburn MD [facility] Protein Electrophoresis Note No definitive M protein is identified on protein electrophoresis. No definitive M protein is identified on protein electrophor esis. [facility] ACCIDENT EXAMINER Antibody <0.2 AI <1.0 [facility] ACCIDENT EXAMINER Antibody Interpretation Negative Negative [facility] Scl-70 (Scleroderma) Antibody <0.2 AI <1.0 [facility] Comment on above: Scl-70/Scleroderma a ntibody test is used as an aid in diagnosis of systemic sclerosis especially the diffuse cutaneous form. A negative result cannot rule out systemic sclerosis. The final interpretation should consider clinical picture and other test results such as anti-centromere antibody. Test Methodology: Multiplex flow immunoassay. Scl-70 Antibody Negative Negative [facility] SS-A Antibody Interpretation Negative Negative [facility] SS-B Antibody Interpretation Negative Negative [facility] Radiology Study observation (narrative) [facility] Nuclear membrane pores nucle ar Ab pattern [Titer] in Serum by Immunofluorescenceon 01-06-2024 Nuclear membrane pores nuclear Ab pattern IF (S) [Titer] Nuclear homogeneous [facility] Nucleated RBC Auto (Bld) [#/ Vol]on 01-06-2024 Nucleated RBC (Bld) [#/Vol] 10*3/uL <0.01 [facility] Nucleated erythrocytes [Pres ence] in Blood by Automated counton 01-06-2024 Nucleated RBC Auto Ql (Bld) 0.0 /100{WBC} [facility] PROTEIN ELECTROPHORESIS SERU M (P)on 01-06-2024 Albumin [Mass/Vol] 4.66 g/dL Normal 3.43-5.41 [facility] Comment on above: Order Comment: Speci men Type: BLOOD SPECIMEN Ordering Facility: [facility] Address: [address] [place] [address] Performed By: #### L [id number] #### [facility] CLIA [id number] [address] [place] [address] [place] Alpha 1 globulin Elph [Mass/Vol] 0.24 g/dL Normal 0.18-0.43 [facility] Comment on above: Order Comment: Speci men Type: BLOOD SPECIMEN Ordering Facility: [facility] Address: [address] [place] [address] Performed By: #### L [id number] #### [facility] CLIA [id number] [address] [place] [address] [place] Alpha 2 globulin Elph [Mass/Vol] 0.61 g/dL Normal 0.42-0.98 [facility] Comment on above: Order Comment: Speci men Type: BLOOD SPECIMEN Ordering Facility: [facility] Address: [address] [place] [address] Performed By: #### L [id number] #### [facility] CLIA [id number] [address] [place] [address] [place] Beta globulin Elph [Mass/Vol] 0.95 g/dL Normal 0.61-1.17 [facility] Comment on above: Order Comment: Speci men Type: BLOOD SPECIMEN Ordering Facility: [facility] Address: [address] [place] [address] Performed By: #### L [id number] #### [facility] CLIA [id number] [address] [place] [address] [place] Gamma globulin Elph [Mass/Vol] 0.94 g/dL Normal 0.53-1.51 [facility] Comment on above: Order Comment: Speci men Type: BLOOD SPECIMEN Ordering Facility: [facility] Address: [address] [place] [address] Performed By: #### L [id number] #### [facility] CLIA [id number] [address] [place] [address] [place] M-PROTEIN LOCATION Normal [facility] Comment on above: Order Comment: Speci men Type: BLOOD SPECIMEN Ordering Facility: [facility] Address: [address] [place] [address] Result Comment: Not Applicable. Performed By: #### L [id number] #### [facility] CLIA [id number] [address] [place] [address] [place] Protein Fractions [Interp] No definitive M protein is identified on protein electrophoresis. Normal No definitive M protein is identified on protein electrophor esis. [facility] Comment on above: Order Comment: Speci men Type: BLOOD SPECIMEN Ordering Facility: [facility] Address: [address] [place] [address] Performed By: #### L [id number] #### [facility] CLIA [id number] [address] [place] [address] [place] Protein.monoclonal Elph [Mass/Vol] 0.00 g/dL Normal <=0.00 [facility] Comment on above: Order Comment: Speci men Type: BLOOD SPECIMEN Ordering Facility: [facility] Address: [address] [place] [address] Performed By: #### L [id number] #### [facility] CLIA [id number] [address] [place] [address] [place] SPE STAFF REVIEW Reviewed by Dr. José Miguel Wilburn MD [facility] Comment on above: Order Comment: Speci men Type: BLOOD SPECIMEN Ordering Facility: [facility] Address: [address] [place] [address] Performed By: #### L [id number] #### [facility] CLIA [id number] [address] [facility] [place] [address] [place] Platelet mean volume Auto (B ld) [Entitic vol]on 01-06-2024 Platelet mean volume (Bld) [Entitic vol] 10.4 fL 9.0-12.7 [facility] Platelets Auto (Bld) [#/Vol] on 01-06-2024 Platelets (Bld) [#/Vol] 285 10*3/uL 150-400 [facility] Prot SerPl-mCncon 01-06-2024 Protein [Mass/Vol] 7.4 g/dL Normal 6.3-8.0 [facility] Comment on above: Order Comment: Speci men Type: BLOOD SPECIMENOrdering Facility: [facility] Address: [address] [place] [address] Performed By: #### 2 885-2 ####[facility] [id number] [facility] [place] [address] [place] Protein [Mass/volume] in Ser um or Plasmaon 01-06-2024 Protein [Mass/Vol] 7.7 g/dL 6.3-8.0 [facility] RBC Auto (Bld) [#/Vol]on RBC (Bld) [#/Vol] 4.51 10*6/uL 3.90-5.20 [facility] RHEUMATOID FACTORon 01-06-20 Rheumatoid factor Qn NINF [facility] Rheumatoid fact SerPl-aCncon 01-06-2024 Rheumatoid factor Qn [IU]/mL Normal <16 [facility] Comment on above: Order Comment: Speci men Type: BLOOD SPECIMEN Ordering Facility: [facility] Address: [address] [place] [address] Performed By: #### 2 157-6, 51884-8 #### [facility] CLIA [id number] [address] [place] [address] [place] Ribonucleoprotein extractabl e nuclear Ab Qn (S)on 01-06-2024 ANTI-ACCIDENT EXAMINER QUAL Negative Normal Negative [facility] Comment on above: Order Comment: Speci men Type: BLOOD SPECIMENOrdering Facility: [facility] Address: [address] [place] [address] Performed By: #### 1 7791-5, 66328-1, 99811-8, 56415-3, 84442-3, 91833-9, 35436-7, 54921-0 ####[facility] [id number] [place] [address] [place] RIBOSOMAL ACCIDENT EXAMINER QUAL Negative Normal Negative [facility] Comment on above: Order Comment: Speci men Type: BLOOD SPECIMENOrdering Facility: [facility] Address: [address] [place] [address] Result Comment: Anti -Ribosomal RNA (Ribosomal P) antibody is used as an aid in diagnosis of systemic autoimmune diseases especially systemic lupus erythematosus and mixed connective tissue disease. Cross-reactivity with Anti-english antibody is not uncommon. Clinical correlation is required. Test Methodology: Multiplex flow immunoassay. Performed By: #### 1 7791-5, 78416-8, 97756-7, 64545-6, 37718-8, 05521-6, 85622-5, 48957-9 ####[facility] LABIA [id number] [place] [id number] [place] Ribosomal P Ab [Units/volume ] in Serumon 01-06-2024 Ribosomal P Ab Qn (S) Negative Negative [facility] Comment on above: Anti-Ribosomal RNA ( Ribosomal P) antibody is used as an aid in diagnosis of systemic autoimmune diseases especially systemic lupus erythematosus and mixed connective tissue disease. Cross-reactivity with Anti-english antibody is not uncommon. Clinical correlation is required. Test Methodology: Multiplex flow immunoassay. SCL-70 extractable nuclear I gG IA Qn (S)on 01-06-2024 SCLERODERMA AB QUAL Negative Normal Negative [facility] Comment on above: Order Comment: Speci men Type: BLOOD SPECIMENOrdering Facility: [facility] Address: [address] [place] [address] Performed By: #### 1 7791-5, 30428-1, 80960-8, 20335-5, 35205-5, 35288-1, 20497-7, 85505-5 ####[facility]IA [id number] [place] [address] [place] SCLERODERMA IGG AB <0.2 Normal <1.0 [facility] Comment on above: Order Comment: Speci men Type: BLOOD SPECIMENOrdering Facility: [facility] Address: [address] [place] [address] Result Comment: Scl- 70/Scleroderma antibody test is used as an aid in diagnosis of systemic sclerosis especially the diffuse cutaneous form. A negative result cannot rule out systemic sclerosis. The final interpretation should consider clinical picture and other test results such as anti-centromere antibody. Test Methodology: Multiplex flow immunoassay. Performed By: #### 1 7791-5, 46592-0, 53971-1, 03591-3, 09703-0, 73165-3, 97709-7, 70010-6 ####[facility] [id number] [place] [address] [place] Serum Mariaa-1 extractable nucle ar antibody assay (units/volume)on 01-06-2024 Mariaa-1 extractable nuclear Ab Qn (S) <0.2 AI <1.0 [facility] Serum Sjogrens syndrome-A ex tractable nuclear antibody assay (units/volume)on 01-06-2024 Sjogrens syndrome-A extractable nuclear Ab Qn (S) 0.3 AI <1.0 [facility] Comment on above: Test Methodology: Mu ltiplex flow immunoassay. Serum Sjogrens syndrome-B ex tractable nuclear antibody assay (units/volume)on 01-06-2024 Sjogrens syndrome-B extractable nuclear Ab Qn (S) <0.2 AI <1.0 [facility] Comment on above: Anti-SSB (anti-La) a ntibody is used as an aid in diagnosis of a variety of systemic autoimmune diseases, especially for Sjogren's syndrome and systemic lupus erythematosus. Clinical correlation is required. Test Methodology: Multiplex flow immunoassay. Serum English extractable nucl ear antigen (DONALD) antibody assay (units/volume)on 01-06-2024 English extractable nuclear Ab Qn (S) <0.2 AI <1.0 [facility] Serum centromere protein B a ntibody assay (units/volume)on 01-06-2024 Centromere protein B Ab Qn (S) <0.2 AI <1.0 [facility] Comment on above: Anti-centromere anti body is used as in aid in diagnosis of systemic sclerosis. Clinical correlation is required. Test Methodology: Multiplex flow immunoassay. Serum nuclear antibody titer on 01-06-2024 Nuclear Ab (S) [Titer] Positive Abnormal Negative [facility] Comment on above: Anti-nuclear antibod y [...] 1 globulin Elph [Mass/Vol] 0.24 g/dL 0.18-0.43 [facility] Serum or plasma alpha 2 glob ulin measurement by electrophoresis (mass/volume)on 01-06-2024 Alpha 2 globulin Elph [Mass/Vol] 0.61 g/dL 0.42-0.98 [facility] Serum or plasma anion gap de terminationon 01-06-2024 Anion gap [Moles/Vol] 15 mmol/L 9-18 [facility] Serum or plasma beta globuli n measurement by electrophoresis (mass/volume)on 01-06-2024 Beta globulin Elph [Mass/Vol] 0.95 g/dL 0.61-1.17 [facility] Serum or plasma calcidiol me asurement (mass/volume)on 01-06-2024 25-hydroxyvitamin D3 [Mass/Vol] 27.4 ng/mL Low 31.0-80.0 [facility] Comment on above: Classification of 25 [place] Vitamin D status: Deficiency/Insufficiency: < or = 30 ng/ml.Sufficiency/Optimal Levels: 31-80 ng/mLToxicity: > 100 ng/mL. Test performed by chemiluminescent immunoassay. Serum or plasma chromatin an tibody assay (units/volume)on 01-06-2024 Chromatin Ab Qn <0.2 AI <1.0 [facility] Comment on above: Test Methodology: Mu ltiplex flow immunoassay. Serum or plasma complement C 3 measurement (mass/volume)on 01-06-2024 Complement C3 [Mass/Vol] 155 mg/dL 86-166 [facility] Serum or plasma complement C 4 measurement (mass/volume)on 01-06-2024 Complement C4 [Mass/Vol] 25 mg/dL 13-46 [facility] Serum or plasma gamma globul in measurement by electrophoresis (mass/volume)on 01-06-2024 Gamma globulin Elph [Mass/Vol] 0.94 g/dL 0.53-1.51 [facility] Serum or plasma rheumatoid f actor measurement (units/volume)on 01-06-2024 Rheumatoid factor Qn [IU]/mL <16 [facility] Sjogrens syndrome-A extracta ble nuclear Ab Qn (S)on 01-06-2024 SSA ANTIBODY QUAL Negative Normal Negative [facility] Comment on above: Order Comment: Speci men Type: BLOOD SPECIMENOrdering Facility: [facility] Address: [address] [place] [address] Performed By: #### 1 7791-5, 46738-4, 59890-6, 91393-7, 01262-6, 17981-5, 14115-8, 57419-4 ####[facility] [id number] [place] [address] [place] Sjogrens syndrome-B extracta ble nuclear Ab Qn (S)on 01-06-2024 SSB ANTIBODY QUAL Negative Normal Negative [facility] Comment on above: Order Comment: Speci men Type: BLOOD SPECIMENOrdering Facility: [facility] Address: [address] [place] [address] Performed By: #### 1 7791-5, 18943-5, 11753-9, 16902-9, 46966-4, 86773-3, 48374-5, 28552-8 ####[facility] [id number] [address] [place] English extractable nuclear Ig G Qn (S)on 01-06-2024 SM ANTIBODY QUAL Negative Normal Negative [facility] Comment on above: Order Comment: Speci ryan Type: BLOOD SPECIMENOrdering Facility: [facility] Address: [address] [place] [address] Result Comment: Anti -Sm (English) antibody is used as an aid in diagnosis of systemic lupus erythematosus and its presence is associated with renal disease. A negative result cannot rule out systemic lupus erythematosus. Clinical correlation is required. Test Methodology: Multiplex flow immunoassay. Performed By: #### 1 7791-5, 79385-4, 83298-9, 48444-9, 16812-1, 71945-1, 74710-0, 89710-3 ####[facility] [id number] [place] [address] [place] UrinalysisOrdered By: Faby Lawson on 01-06-2024 Urinalysis complete panel (U) [facility] Urinalysis complete panel (U )on 01-06-2024 Bacteria LM.HPF (Urine sed) [#/Area] Negative Negative /HPF [facility] Bilirubin Ql (U) Negative Negative [facility] Clarity (Unsp spec) Clear Clear [facility] Color (U) Yellow Yellow [facility] Epithelial cells LM.HPF (Urine sed) [#/Area] None Seen /HPF [facility] Glucose Test strip (U) [Mass/Vol] Negative Negative [facility] Hemoglobin Ql (U) Negative Negative [facility] Hyaline casts (Urine sed) [#/Area] 0 /[LPF] 0 /LPF [facility] Interpretation and review of laboratory results Abnormal [facility] Ketones Ql (U) Negative Negative [facility] Leukocyte esterase Test strip Ql (U) 1+ Abnormal Negative [facility] Nitrite Ql (U) Negative Negative [facility] pH (U) 7.0 [pH] NINF - 8.5 [facility] Protein (U) [Mass/Vol] Negative Negative Cl [facility] RBC LM.HPF (Urine sed) [#/Area] 0-2 /HPF 0-2 /HPF [facility] Specific gravity (U) [Rel density] 1.016 1.005 - 1.030 [facility] Urobilinogen Ql (U) 0.2 EU/dL 0.2-1.0 EU/dL [facility] WBC LM.HPF (Urine sed) [#/Area] 0-5 /HPF 0-5 /HPF [facility] This test was develo ped and its performance characteristics determined by [facility]'s [facility] [place] ([facility]). It has not been cleared or approved by the FDA. [facility] is regulated under CLIA as qualified to perform high-complexity testing. This test is used for clinical purposes. It should not be regarded as investigational or for research. [facility] Bacteria LM.HPF (Urine sed) [#/Area] Negative Normal Negative [facility] Comment on above: Order Comment: Speci men Type: BLOOD SPECIMEN Ordering Facility: [facility] Address: [address] [place] [address] Performed By: #### 2 157-6, 16646-0 #### [facility] CLIA [id number] [address] [place] [address] [place] Bilirubin Ql (U) Negative Normal Negative [facility] Comment on above: Order Comment: Speci men Type: BLOOD SPECIMEN Ordering Facility: [facility] Address: [address] [place] [address] Performed By: #### 2 157-6, 84653-8 #### [facility] CLIA [id number] [address] [place] [address] [place] Clarity (Unsp spec) Clear Normal Clear [facility] Comment on above: Order Comment: Speci men Type: BLOOD SPECIMEN Ordering Facility: [facility] Address: [address] [place] [address] Performed By: #### 2 157-6, 28511-2 #### [facility] CLIA [id number] [address] [place] [address] [place] Color (U) Yellow Normal Yellow [facility] Comment on above: Order Comment: Speci men Type: BLOOD SPECIMEN Ordering Facility: [facility] Address: [address] [place] [address] Performed By: #### 2 157-6, 50902-2 #### [facility] [facility] CLIA [id number] [address] [place] [address] [place] Epithelial cells LM.HPF (Urine sed) [#/Area] None Seen Normal [facility] Comment on above: Order Comment: Speci men Type: BLOOD SPECIMEN Ordering Facility: [facility] Address: [address] [place] [address] Performed By: #### 2 157-6, 17483-6 #### [facility] CLIA [id number] [address] [place] [address] [place] Glucose Test strip (U) [Mass/Vol] Negative Normal Negative [facility] Comment on above: Order Comment: Speci men Type: BLOOD SPECIMEN Ordering Facility: [facility] Address: [address] [place] [address] Performed By: #### 2 157-6, 11308-1 #### [facility] CLIA [id number] [address] [place] [address] [place] Hemoglobin Ql (U) Negative Normal Negative [facility] Comment on above: Order Comment: Speci men Type: BLOOD SPECIMEN Ordering Facility: [facility] Address: [address] [place] [address] Performed By: #### 2 157-6, 17970-6 #### [facility] CLIA [id number] [address] [place] [address] [place] Hyaline casts (Urine sed) [#/Area] 0 /[LPF] Normal 0 /LPF [facility] Comment on above: Order Comment: Speci men Type: BLOOD SPECIMEN Ordering Facility: [facility] Address: [address] [place] [address] Performed By: #### 2 157-6, 07859-2 #### [facility] CLIA [id number] [address] [place] [address] [place] Ketones Ql (U) Negative Normal Negative [facility] Comment on above: Order Comment: Speci men Type: BLOOD SPECIMEN Ordering Facility: [facility] Address: [address] [place] [address] Performed By: #### 2 157-6, 40113-9 #### [facility] CLIA [id number] [address] [place] [address] [place] Leukocyte esterase Test strip Ql (U) 1+ Abnormal Negative [facility] Comment on above: Order Comment: Speci men Type: BLOOD SPECIMEN Ordering Facility: [facility] Address: [address] [place] [address] Performed By: #### 2 157-6, 13877-7 #### [facility] CLIA [id number] [address] [place] [address] [place] Nitrite Ql (U) Negative Normal Negative [facility] Comment on above: Order Comment: Speci men Type: BLOOD SPECIMEN Ordering Facility: [facility] Address: [address] [place] [address] Performed By: #### 2 157-6, 59727-4 #### [facility] CLIA [id number] [address] [place] [address] [place] pH (U) 7.0 [pH] Normal <8.5 [facility] Comment on above: Order Comment: Speci men Type: BLOOD SPECIMEN Ordering Facility: [facility] Address: [address] [place] [address] Performed By: #### 2 157-6, 17500-8 #### [facility] CLIA [id number] [address] [place] [address] [place] Protein (U) [Mass/Vol] Negative Normal Negative [facility] Comment on above: Order Comment: Speci men Type: BLOOD SPECIMEN Ordering Facility: [facility] Address: [address] [place] [address] Performed By: #### 2 157-6, 35478-6 #### [facility] CLIA [id number] [address] [place] [address] [place] RBC LM.HPF (Urine sed) [#/Area] 0-2 /HPF Normal 0-2 /HPF [facility] Comment on above: Order Comment: Speci men Type: BLOOD SPECIMEN Ordering Facility: [facility] Address: [address] [place] [address] Performed By: #### 2 157-6, 17771-7 #### [facility] CLIA [id number] [address] [place] [address] [place] Specific gravity (U) [Rel density] 1.016 Normal 1.005-1.030 [facility] Comment on above: Order Comment: Speci men Type: BLOOD SPECIMEN Ordering Facility: [facility] Address: [address] [place] [address] Performed By: #### 2 157-6, 74674-4 #### [facility] CLIA [id number] [address] [place] [address] [place] Urobilinogen Ql (U) 0.2 EU/dL Normal 0.2-1.0 EU/dL [facility] Comment on above: Order Comment: Speci men Type: BLOOD SPECIMEN Ordering Facility: [facility] Address: [address] [place] [address] Performed By: #### 2 157-6, 92238-5 #### [facility] CLIA [id number] [address] [place] [address] [place] WBC LM.HPF (Urine sed) [#/Area] 0-5 /HPF Normal 0-5 /HPF [facility] Comment on above: Order Comment: Speci men Type: BLOOD SPECIMEN Ordering Facility: [facility] Address: [address] [place] [address] Performed By: #### 2 157-6, 77457-8 #### [facility] CLIA [id number] [address] [place] [address] [place] XR CERVICAL 4V [...] spondylosis. 2. Cervical spine degenerative facet arthrosis. Management Trainer: CLARY Transcribe Date/Time: Jan 06 2024 12:16P Dictated by : BARBARA KIRBY MD This examination was interpreted and the report reviewed and electronically signed by: BARBARA KIRBY MD on Jan 06 2024 12:17PM EST [id number] Normal [facility] XR Cervical spine AP and Lat eral and obliqueon 01-06-2024 IMPRESSION: 1. Mild cervical spondylosis. 2. Cervical spine degenerative facet arthrosis. Management Trainer: CLARY Transcribe Date/Time: Jan 06 2024 12:16P Dictated by : BARBARA KIRBY MD This examination was interpreted and the report reviewed and electronically signed by: BARBARA KIRBY MD on Jan 06 2024 12:17PM [facility] DIVISION OF RADIOLOGY * * *Final [...] RIGHT at C4-C5. DIVISION OF RADIOLOGY Provider, [facility] Lu[facility] - 01/06/2024 * * *Final Report* * [...] spondylosis. 2. Cervical spine degenerative facet arthrosis. Management Trainer: [facility] Transcribe Date/Time: Jan 06 2024 12:16P Dictated by : BARBARA KIRBY MD This examination was interpreted and the report reviewed and electronically signed by: BARBARA KIRBY MD on Jan 06 2024 12:17PM [facility] XR FOOT 3V AP/LAT/OBL BILon [...] demonstrated. IMPRESSION: 1. No significant arthropathy demonstrated. Management Trainer: CLARY Transcribe Date/Time: Jan 06 2024 12:15P Dictated by : BARBARA KIRBY MD This examination was interpreted and the report reviewed and electronically signed by: BARBARA KIRBY MD on Jan 06 2024 12:16PM EST [id number] Normal [facility] XR Foot - bilateral AP and L ateral and obliqueon 01-06-2024 IMPRESSION: 1. No significant arthropathy demonstrated. Management Trainer: CLARY Transcribe Date/Time: Jan 06 2024 12:15P [...] erosions are demonstrated. DIVISION OF RADIOLOGY Provider, [facility] [...] IMPRESSION IMPRESSION: 1. No significant arthropathy demonstrated. Management Trainer: CLARY Transcribe Date/Time: Jan 06 2024 12:15P Dictated by : BARBARA KIRBY MD This examination was interpreted and the report reviewed and electronically signed by: BARBARA KIRBY MD on Jan 06 2024 12:16PM EST [facility] XR HAND 3V PA/LAT/OBL BILon 01-06-2024 [...] 1. Mild degenerative arthrosis of both hands. Management Trainer: [facility] Transcribe Date/Time: Jan 06 2024 12:18P Dictated by : BARBARA KIRBY MD This examination was interpreted and the report reviewed and electronically signed by: BARBARA KIRBY MD on Jan 06 2024 12:19PM EST [id number] Normal [facility] XR Hand - bilateral PA and L ateral and Obliqueon 01-06-2024 IMPRESSION: 1. Mild degenerative arthrosis of both hands. Management Trainer: [facility] Transcribe Date/Time: Jan 06 2024 12:18P Dictated by : BARBARA KIRBY MD This examination was interpreted and the report reviewed and electronically signed by: BARBARA KIRBY MD on Jan 06 2024 12:19PM [facility] OF RADIOLOGY * * *Final [...] erosions are demonstrated. DIVISION OF RADIOLOGY Provider, [facility] [...] 1. Mild degenerative arthrosis of both hands. Management Trainer: CLARY Transcribe Date/Time: Jan 06 2024 12:18P Dictated by : BARBARA KIRBY MD This examination was interpreted and the report reviewed and electronically signed by: BARBARA KIRBY MD on Jan 06 2024 12:19PM [facility] XR KNEE 4V AP/PA/LAT/[facility] 01-06-2024 XR KNEE 4V AP/PA/LAT/MERCH MARY * [...] IMPRESSION: 1. No significant knee arthropathy demonstrated. Management Trainer: [facility] Transcribe Date/Time: Jan 06 2024 12:19P Dictated by : BARBARA KIRBY MD This examination was interpreted and the report reviewed and electronically signed by: BARBARA KIRBY MD on Jan 06 2024 12:19PM EST [id number] Normal [facility] XR Knee - bilateral 4 Viewso n 01-06-2024 IMPRESSION: 1. No significant knee arthropathy demonstrated. Management Trainer: [facility] Transcribe Date/Time: Jan 06 2024 12:19P Dictated [...] a joint effusion. DIVISION OF RADIOLOGY Provider, [facility]24 * * *Final Report* * [...] IMPRESSION: 1. No significant knee arthropathy demonstrated. Management Trainer: CLARY Transcribe Date/Time: Jan 06 2024 12:19P Dictated by : BARBARA KIRBY MD This examination was interpreted and the report reviewed and electronically signed by: BARBARA KIRBY MD on Jan 06 2024 12:19PM EST [facility] XR LUMBAR 3V AP/LAT/L5-S1on 01-06-2024 XR [...] 2. Lower lumbar spine degenerative facet arthrosis. Management [facility] Transcribe Date/Time: Jan 06 2024 12:14P Dictated by : BARBARA KIRBY MD This examination was interpreted and the report reviewed and electronically signed by: BARBARA KIRBY MD on Jan 06 2024 12:15PM EST [id number] Normal [facility] XR Lumbar spine 3 Viewson IMPRESSION: 1. L1-L2 degenerative disc disease. 2. Lower lumbar spine degenerative facet arthrosis. Management Trainer: [facility] Transcribe Date/Time: Jan 06 2024 12:14P Dictated [...] 2. Lower lumbar spine degenerative facet arthrosis. Management [facility] Transcribe Date/Time: Jan 06 2024 12:14P Dictated by : BARBARA KIRBY MD This examination was interpreted and the report reviewed and electronically signed by: BARBARA KIRBY MD on Jan 06 2024 12:15PM EST [facility] XR Lumbar spine 3 ViewsOrder ed By: [facility] Provider on 01-06-2024 [facility] XR SI JTS 2V AP PELV/FERGUSO [...] maintained. IMPRESSION: 1. No evidence of sacroiliitis. Management Trainer: [facility] Transcribe Date/Time: Jan 06 2024 12:13P Dictated by : BARBARA KIRBY MD This examination was interpreted and the report reviewed and electronically signed by: BARBARA KIRBY MD on Jan 06 2024 12:13PM EST [id number] Normal [facility] XR Sacroiliac Joint Viewson 01-06-2024 IMPRESSION: 1. No evidence of sacroiliitis. Management Trainer: [facility] Transcribe Date/Time: Jan 06 2024 12:13P Dictated by : BARBARA KIRBY MD This examination was interpreted and the report reviewed and electronically signed by: BARBARA KIRBY MD on Jan 06 2024 12:13PM [facility] DIV[facility] OF RADIOLOGY * * *Final [...] spaces are maintained. DIVISION OF RADIOLOGY Provider, [facility] [...] IMPRESSION IMPRESSION: 1. No evidence of sacroiliitis. Management Trainer: CLARY Transcribe Date/Time: Jan 06 2024 12:13P Dictated by : BARBARA KIRBY MD This examination was interpreted and the report reviewed and electronically signed by: BARBARA KIRBY MD on Jan 06 2024 12:13PM EST [facility] cCP IgG SerPl-aCncon 01-05- 024 Cyclic citrullinated peptide IgG Qn <15 Normal <20 [facility] Comment on above: Order Comment: Speci men Type: BLOOD SPECIMENOrdering Facility: [facility] Address: [address] [place] [address] Performed By: #### 3 3935-8 ####[facility] [id number] [place] [address] [place] dsDNA Ab Ser Ql CLIFon 01-05 DNA double strand Ab IF Crithidia luciliae Ql (S) Negative Normal Negative [facility] Comment on above: Order Comment: Speci men Type: BLOOD SPECIMEN Ordering Facility: [facility] Address: [address] [place] [address] Result Comment: Crit hidia luciliae assay is used as an aid in diagnosis of systemic lupus erythematosus (SLE). A negative result cannot rule out SLE. Low positive titers may be seen with other systemic autoimmune diseases. Clinical correlation is required. Performed By: #### 2 157-6, 04593-3 #### [facility] CLIA [id number] [address] [place] [address] [place] Basophils Auto (Bld) [#/Vol] on 10-16-2023 Basophils (Bld) [#/Vol] 0.1 10 3/uL 0.0-0.1 [facility] Basophils/100 WBC Auto (Bld) on 10-16-2023 Basophils/100 WBC (Bld) 2.0 % 0.2-2.0 [facility] Centriole Ab IF (S) [Titer]o n 10-16-2023 Anti-Nuclear Ab Centriole Pattern TNP . [facility] Centromere Ab IF (S) [Titer] on 10-16-2023 Anti-Nuclear Ab Centromere Pattern TNP . [facility] Cholesterol in LDL Calc [Mas s/Vol]on 10-16-2023 Cholesterol in LDL [Mass/Vol] 99.0 mg/dL [facility] Comment on above: <100 mg/dl [id number] 0-129 mg/dl NEAR OR ABOVE [id number] mg/dl BORDERLINE [id number] mg/dl HIGH>190 mg/dl VERY HIGH Cholesterol in VLDL Calc [Ma ss/Vol]on 10-16-2023 Cholesterol in VLDL [Mass/Vol] 13.2 mg/dL [facility] Eosinophils/100 WBC Auto (Bl d)on 10-16-2023 Eosinophils/100 WBC (Bld) 7.9 % 0.9-7.0 [facility] Erythrocyte distribution wid th Auto (RBC) [Ratio]on 10-16-2023 Erythrocyte distribution width (RBC) [Ratio] 11.7 % 11.0-15.0 [facility] Estimated glomerular filtrat ion rate (GFR) non- Americanon 10-16-2023 GFR/1.73 sq M.predicted among non-blacks MDRD (S/P/Bld) [Vol rate/Area] mL/min/{1.73_m2} >=60 [facility] Globulin Calc (S) [Mass/Vol] on 10-16-2023 Globulin (S) [Mass/Vol] 4.2 g/dL [facility] Hematocrit Auto (Bld) [Volum e fraction]on 10-16-2023 Hematocrit (Bld) [Volume fraction] 40.4 % 36.0-48.0 [facility] Hemoglobin [Mass/volume] in Bloodon 10-16-2023 Hemoglobin (Bld) [Mass/Vol] 13.4 g/dL 12.0-16.0 [facility] Homogenous nuclear Ab patter n (S) [Titer]on 10-16-2023 Anti-Nuclear Ab Homogeneous Pattern TNP . [facility] Iron binding capacity [Mass/ volume] in Serum or Plasmaon 10-16-2023 Iron binding capacity [Mass/Vol] 370.0 ug/dL 250.0-450.0 [facility] Iron saturation [Mass Fracti on] in Serum or Plasmaon 10-16-2023 Iron saturation [Mass fraction] 46.8 % [facility] Laboratory - Chemistry and C hemistry - challengeon 10-16-2023 Albumin [Mass/Vol] 4.0 g/dL 3.4-5.0 [facility] ALP [Catalytic activity/Vol] 123 U/L 46-116 [facility] ALT [Catalytic activity/Vol] 56 U/L 14-59 [facility] AST [Catalytic activity/Vol] 29 U/L 15-37 [facility] Bilirubin [Mass/Vol] 0.6 mg/dL 0.2-1.0 [facility] Calcium [Mass/Vol] 9.6 mg/dL 8.5-10.1 [facility] Chloride [Moles/Vol] 98 mmol/L 98-107 [facility] Cholesterol [Mass/Vol] 208 mg/dL <=200 [facility] Cholesterol in HDL [Mass/Vol] 96 mg/dL 40-60 [facility] Comment on above: > or =60 mg/dl - LOW CARDIOVASCULAR RISK<40 mg/dl - HIGH CARDIOVASCULAR RISK CO2 [Moles/Vol] 28.5 mmol/L 21.0-32.0 [facility] Creatinine [Mass/Vol] 0.73 mg/dL 0.55-1.02 [facility] GFR/1.73 sq M.predicted MDRD (S/P/Bld) [Vol rate/Area] mL/min/{1.73_m2} >=60 [facility] Glucose [Mass/Vol] 92 mg/dL 74-106 [facility] Iron [Mass/Vol] 173.0 ug/dL 50.0-170.0 [facility] Potassium [Moles/Vol] 4.2 mmol/L 3.5-5.1 [facility] Protein [Mass/Vol] 8.2 g/dL 6.4-8.2 [facility] Sodium [Moles/Vol] 137 mmol/L 136-145 [facility] Triglyceride [Mass/Vol] 66 mg/dL <=150 [facility] TSH Qn 0.686 m[IU]/L 0.358-3.740 [facility] Urate [Mass/Vol] 4.1 mg/dL 2.6-6.0 [facility] Urea nitrogen [Mass/Vol] 8.0 mg/dL 7.0-18.0 [facility] Urea nitrogen/Creatinine [Mass ratio] 11.0 mg/mg [facility] Laboratory - Hematology and Cell countson 10-16-2023 ESR (Bld) [Velocity] 28 mm/h <=30 [facility] Immature granulocytes/100 WBC (Bld) 0.0 % 0.0-0.5 [facility] Leukocytes [#/volume] correc gudelia for nucleated erythrocytes in Blood by Automated counon 10-16-2023 WBC corrected for nucl RBC Auto (Bld) [#/Vol] 3.4 10 3/uL 4.0-11.0 [facility] Lymphocytes Auto (Bld) [#/Vo l]on 10-16-2023 Lymphocytes (Bld) [#/Vol] 1.6 10 3/uL 1.2-3.8 [facility] Lymphocytes/100 WBC Auto (Bl d)on 10-16-2023 Lymphocytes/100 WBC (Bld) 45.6 % 20.5-60.0 [facility] MCH Auto (RBC) [Entitic mass ]on 10-16-2023 MCH (RBC) [Entitic mass] 30.7 pg 26.7-34.0 [facility] MCHC Auto (RBC) [Mass/Vol]on 10-16-2023 MCHC (RBC) [Mass/Vol] 33.2 g/dL 29.9-35.2 [facility] MCV Auto (RBC) [Entitic vol] on 10-16-2023 MCV (RBC) [Entitic vol] 92.4 fL 81.0-99.0 [facility] Midbody Ab IF (S) [Titer]on 10-16-2023 Anti-Nuclear Ab Midbody Pattern TNP . [facility] Mitotic spindle apparatus Ab IF [Titer]on 10-16-2023 ALONDRA Spindle Apparatus Pattern TNP . [facility] Monocytes Auto (Bld) [#/Vol] on 10-16-2023 Monocytes (Bld) [#/Vol] 0.3 10 3/uL 0.3-0.8 [facility] Monocytes/100 WBC Auto (Bld) on 10-16-2023 Monocytes/100 WBC (Bld) 9.6 % 1.7-12.0 [facility] Neutrophils Auto (Bld) [#/Vo l]on 10-16-2023 Neutrophils (Bld) [#/Vol] 1.2 10 3/uL 1.4-6.5 [facility] Neutrophils/100 WBC Auto (Bl d)on 10-16-2023 Neutrophils/100 WBC (Bld) 34.9 % 43.0-75.0 [facility] No Panel Informationon 10-16 Anti-Nuclear Antibody Comment 2 Comment . [facility] Comment on above: Pattern Potential Di sease Association Homogeneous Systemic Lupus Erythematosus, Drug Induced Systemic Lupus Erythematosus, Chronic Autoimmune hepatitis, Juvenile Idiopathic Arthritis Speckled Sjogren Syndrome, Systemic Lupus Erythematosus, Subacute Cutaneous Lupus, Lupus, Congenital Heart Block, Mixed Connective Tissue Disease, Scleroderma-diffuse, Scleroderma-Autoimmune Myositis Overlap Syndrome, Systemic Lupus Nrfnwhnlolgcc-Ukcwsawrwbv-Siraoynmzq Myositis Overlap Syndrome, Systemic Autoimmune Rheumatic Disease, [...] Antiphospholipid Syndrome Performed at: CB - [facility] [address] [id number] Director: Branden Melendez PhD, Phone: [phone] Pattern Potential Di [facility] Homogeneous Systemic Lupus Erythematosus, Drug Induced Systemic Lupus Erythematosus, Chronic Autoimmune hepatitis, Juvenile Idiopathic Arthritis Speckled Sjogren Syndrome, Systemic Lupus Erythematosus, Subacute Cutaneous Lupus, Lupus, Congenital Heart Block, Mixed Connective Tissue Disease, Scleroderma-diffuse, Scleroderma-Autoimmune Myositis Overlap Syndrome, Systemic Lupus Zqavcqvmadrkm-Jnnwhzaldpe-Goqsprxoia Myositis Overlap Syndrome, Systemic Autoimmune Rheumatic Disease, [...] Antiphospholipid Syndrome Performed at: CB - [facility] [address] [id number] Director: Branden Melendez PhD, Phone: [phone] Anti-Streptolysin O Antibody 225.8 [IU]/mL 0.0-200.0 [facility] Comment on above: Performed at: CB - [facility] [address] [id number] Director: Branden Melendez PhD, Phone: [phone] C-Reactive Protein, Quantitative <0.50 mg/dL <=0.50 [facility] Eosinophils # (Auto) 0.3 10 3/uL 0.0-0.7 [facility] Immature Granulocyte # (Auto) 0.00 10 3/uL 0.00-0.03 [facility] Nuclear Ab (S) [Titer]on Anti-Nuclear Antibody Screen Positive . [facility] Comment on above: Negative <1:80 Borde rline 1:80 Positive >1:80 Negative <1:80 Borde rline 1:80 Positive >1:80 Nuclear dots nuclear Ab lucie iraida IF (S) [Titer]on 10-16-2023 Anti-Nuclear Ab Nuclear Dot Pattern TNP . [facility] Nuclear membrane pores nucle ar Ab pattern IF (S) [Titer]on 10-16-2023 ALONDRA Nuclear Membrane Pattern TNP . [facility] Nucleolar nuclear Ab pattern (S) [Titer]on 10-16-2023 Anti-Nuclear Ab Nucleolar Pattern TNP . [facility] PCNA extractable nuclear Ab IF (S) [Titer]on 10-16-2023 Anti-Nuclear Ab PCNA Pattern TNP . [facility] Platelet mean volume Auto (B ld) [Entitic vol]on 10-16-2023 Platelet mean volume (Bld) [Entitic vol] 10.4 fL 9.5-13.5 [facility] Platelets Auto (Bld) [#/Vol] on 10-16-2023 Platelets (Bld) [#/Vol] 301 10 3/uL 150-450 [facility] RBC Auto (Bld) [#/Vol]on RBC (Bld) [#/Vol] 4.37 10 6/uL 4.20-5.40 [facility] Serum or plasma albumin/glob ulin mass ratioon 10-16-2023 Albumin/Globulin [Mass ratio] 1.0 {ratio} [facility] Serum or plasma anion gap de terminationon 10-16-2023 Anion gap [Moles/Vol] 14.7 mmol/L [facility] Serum or plasma cyclic adeno sine monophosphate measurement (moles/volume)on 10-16-2023 Adenosine monophosphate.cyclic [Moles/Vol] 6 units 0-19 [facility] Comment on above: Negative <20 Weak po sitive 20 - 39 Moderate positive 40 - 59 Strong positive >59Performed at: [facility] [id number] Director: Branden Melendez PhD, Phone: [phone] Serum or plasma rheumatoid f actor measurement (units/volume)on 10-16-2023 Rheumatoid factor Qn 10.4 [IU]/mL <14.0 Fi [facility] Serum or plasma thyroperoxid ase antibody assay (units/volume)on 10-16-2023 TPO Ab Qn [IU]/mL 0-34 [facility] Serum or plasma total choles terol/high density lipoprotein (HDL) cholesterol mass darrin 10-16-2023 Cholesterol.total/Chol esterol in HDL [Mass ratio] 2.2 {ratio} [facility] Comment on above: 3.3 - 4.4 LOW RISK4. 4 - 7.1 AVERAGE RISK7.1 - 11.0 MODERATE RISK>11.0 HIGH RISK Speckled nuclear Ab pattern (S) [Titer]on 10-16-2023 Anti-Nuclear Ab Speckled Pattern 1:320 . [facility] Comment on above: Dense Fine Speckled pattern is noted. This pattern suggeststhe presence of DFS70 antibody which has a low prevalencein systemic autoimmune rheumatic diseases.ICAP nomenclature: AC-2,4,5,29 Dense Fine Speckled pattern is noted. This pattern suggeststhe presence of DFS70 antibody which has a low prevalencein systemic autoimmune rheumatic diseases.ICAP nomenclature: AC-2,4,5,29 Thyroglobulin [Mass/volume] in Serum or Plasmaon 10-16-2023 Thyroglobulin [Mass/Vol] <1.0 [IU]/mL 0.0-0.9 [facility] Comment on above: Thyroglobulin Antibo dy measured by AxelaCareMethodologyIt should be noted that the presence of thyroglobulinantibodies may not be pathogenic nor diagnostic, especiallyat very low levels. The assay financial compliance officer has found thatfour percent of individuals without evidence of thyroiddisease or autoimmunity will have positive TgAb levels upto 4 IU/mL.Performed at: - [facility] [place], [place] [id number] Director: Branden Melendez PhD, Phone: [phone] Arvind 10-14-2023 CNCO Letter Text Normal [facility] CNPNon 10-13-2023 CNPN Telephone ([id number]) -------- STACIE DAVIDSON ([id number]) 1970 F Date Time Provider Department 10/13/23 UTE HART [id number] During your visit today, we recorded the following information about you: Kayce Norton 10/13/2023 3:50 PM Signed Patient called again, requesting a letter stating that she is fit for duty for her job to be faxed. Attn: [facility]. Fax number [phone]. Any questions please call patient at [phone], she can't go back to work until they receive something. Thank you! Marilynn Romero MA 10/14/2023 10:02 AM Signed Called and left a voicemail for her to let us know if she needs just a letter from office fit for duty or if there is a form that [employer] has that needs to be filled out then it needs to be faxed over. [place] Kristian 10/14/2023 11:41 AM Signed Called again about letter Marilynn Romero MA 10/14/2023 1:08 PM Signed Fit for work letter was typed out and faxed over to [facility]. Talked to patient and she said that is what they needed. Marilynn Romero MA Allergies As of Date: 10/13/2023 Noted Allergy Reaction SULFA (SULFONAMIDE ANTIBIOTICS) 07/18/2023 2 - Rash TETRACYCLINES 12/10/2017 9 - Itching 2 - Rash 12 - Shortness of Breath Date Reviewed: 09/30/2023 Reviewed by: 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 APRN.SALES REPRESENTATIVE HEALTH INSURANCE - Fully Assessed Reason for Visit: Fit [...] Status:Closed by EMERALD MELENDEZ RN on 10/14/23 [facility] Yancy 10-05-2023 CNPN Telephone ([id number]) -------- STUART,STACIE ([id number]) 1970 F Date Time Provider Department 10/05/23 UTE HART [id number] During your visit today, we recorded the following information about you: Kayce Norton 10/05/2023 11:37 AM Signed Patient called needing a return to work fitness form. Any questions she can be reached at [phone] The form should be sent to [employer], . Please also my chart her a copy. Thank You! Marilynn Romero MA 10/06/2023 8:52 AM Addendum There was not return to work fitness form in the packet. I faxed over the forms to [employer] on 09/30/23. I left a vm on patients phone to let her know and that I can't upload them to her [employer] because she does not have one set up. Marilynn Romero MA Allergies As of Date: 10/05/2023 Noted Allergy Reaction SULFA (SULFONAMIDE ANTIBIOTICS) 07/18/2023 2 - Rash TETRACYCLINES 12/10/2017 9 - Itching 2 - Rash 12 - Shortness of Breath Date Reviewed: 09/30/2023 Reviewed by: 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 APRN.SALES REPRESENTATIVE HEALTH INSURANCE - Fully Assessed Reason for Visit: return [...] Status:Closed by MARILYNN ROMERO on 10/06/23 Normal [facility] CNCOon 09-30-2023 CNCO Letter Text Normal [facility] CNOVon 09-30-2023 CNOV Office Visit ([id number] ) -------- STACIE DAVIDSON ([id number]) 1970 F Date Time Provider Department 09/30/23 1:00 PM MEREDITH BLANCO [id number] During your visit today, we recorded the following information about you: Temperature Pulse Blood pressure Weight 98.6 degrees 78/minute 125/80 73.9 kg Height 1.549 m Telford, MarilynnMOON 09/30/2023 12:59 PM Signed What is [...] LISA Blanco APRN.CNP Referring Provider: UTE HART [[id number]] Allergies As of Date: 09/30/2023 Noted Allergy Reaction SULFA (SULFONAMIDE ANTIBIOTICS) 07/18/2023 2 - Rash TETRACYCLINES 12/10/2017 9 - Itching 2 - Rash 12 - Shortness of Breath Date Reviewed: 09/30/2023 Reviewed by: 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 APRN.SALES REPRESENTATIVE HEALTH INSURANCE - Fully Assessed Reason for Visit: Post [...] for Encounter Date Provider Department Center 09/30/2023 [id number] BLANCO [id number] [facility] Encounter Status:Closed by MEREDITH BLANCO on 09/30/23 Normal [facility] Consultation Noteon 09-29-19 Consultation Note [id number] [id number]#[id number] Consultation Note [id number] 2020 [id number]#1.00[id number] -------- STACIE DAVIDSON ([id number]) 1970 F Date Time Provider Department 09/23/23 UTE HART [id number] During your visit today, we recorded the [...] to below contact. Completed copy scanned in [facility] Date of Surgery: 09/16/23 Estimated RTW date: 10/19/23 Employer: [employer]. Faxed to the [employer] Date sent to employer: 09/30/23 Received fax confirmation: YES Allergies As of Date: 09/23/2023 Noted Allergy Reaction SULFA (SULFONAMIDE ANTIBIOTICS) 07/18/2023 2 - Rash TETRACYCLINES 12/10/2017 9 - Itching 2 - Rash 12 - Shortness of Breath Date Reviewed: 09/16/2023 Reviewed by: Lori Shaw RN - Fully Assessed Reason for Visit: [facility] Paperwork [[id number]] Prescriptions as of 09/30/2023 - Lactobacillus acidophilus [...] Encounter Status:Closed by MARILYNN ROMERO on 09/30/23 [facility] ANES POSTPROC EVALon 024 ANES POSTPROC EVAL HNO ID: [id number] Author: JORDY DASILVA DO Service: Anesthesiology Author Type: Anesthesiologist Type: Anesthesia Postprocedure Evaluation Filed: 09/16/2023 13:55 Note Text: POST ANESTHESIA EVALUATION NOTE : 1970 Procedure Summary Date: 09/16/23 Room / Location: [place] [address] / OR Anesthesia Start: 736 Anesthesia Stop: [...] September 16, 2023 TIME: 1:55 PM CSN: [id number] [facility] ANES PRE-OPon 09-16-2023 [facility] PRE-OP HNO ID: [id number] Author: JORDY DASILVA DO Service: Anesthesiology Author Type: Resident Type: Anesthesia Preprocedure Evaluation Filed: 09/16/2023 07:03 Note Text: -------- Attestation signed by Jordy Dasilva DO at 09/16/2023 7:03 AM I saw and evaluated the patient. Discussed with the WAXER OPERATOR/AA/resident and agree with findings and plan as [...] and consent discussed: yes. Patient / Responsible Alliance Party agrees to proceed: yes Patient / [...] September 16, 2023 TIME: 6:56 AM CSN: [id number] [facility] BRIEF OP NOTon 09-16-2023 BRIEF OP NOT HNO ID: [id number] Author: UTE HART MD Service: General Surgery Author Type: Physician Type: Brief Op Note Filed: 09/16/2023 10:00 Note Text: BRIEF OPERATIVE / PROCEDURE NOTE LOG ID: [id number] SURGERY/PROCEDURE DATE: 09/16/2023 INCISION/PROCEDURE START TIME: 8:07 AM INCISION CLOSE/PROCEDURE END TIME: 9:21 AM SURGEON(S)/PROCEDURALIST (S) AND SOCIAL MEDIA DIRECTOR(S): Surgeon(s) and Role: * Ute Hart MD - Primary Physician Second Shift Supervisor: Melissa Silverman PA-C SURGERY/PROCEDURE(S): Lap ronnell with IOC ANESTHESIA: General FINDINGS: Chronic cholecystitis ESTIMATED BLOOD LOSS: 50 mls SPECIMENS: Gallbladder COMPLICATIONS: None CLOSURE TECHNIQUE: Primary PRE-OP/PRE-PROCEDURE DIAGNOSIS: Biliary colic POST-OP/POST-PROCEDURE DIAGNOSIS: Same as Preop SIGNATURE: Ute Hart MD PATIENT NAME: Stacie Davidson DATE: September 16, 2023 TIME: 9:59 AM [facility] HISTORY PHYSICALon HISTORY PHYSICAL HNO ID: [id number] Author: UTE HART MD Service: General Surgery [...] DATE: September 16, 2023 TIME: 7:35 AM [facility] NURSING PROGon 09-16-2023 NURSING PROG HNO ID: [id number] Author: SYLVIE ALDANA, RN Service: Nursing Author Type: Registered Nurse Type: Nursing Progress Note Filed: 09/16/2023 06:17 Note Text: PATIENT EDUCATION TOPIC: PROCEDURE / SURGERY: Pre-op Teaching: Surgery PATIENT NAME: Stacie Davidson PATIENT LOCATION: OR [place]/FV OR POOL READINESS TO LEARN COGNITIVE ABILITY: [...] (RECOMMENDATION): None Electronically Signed By: Sylvie Aldana [facility] OPERATIVE NOon 09-16-2023 OPERATIVE NO HNO ID: [id number] Author: UTE HART MD Service: General Surgery Author Type: Physician Type: Operative Report Filed: 09/20/2023 10:08 Note Text: [facility] - Operative Report STACIE DAVIDSON : 1970 AGE: 53. SEX: F PATIENT TYPE: A HOSP SVC: GNS LOCATION: [facility] ATTENDING PHYSICIAN: Ute Hart MD CSN NUMBER: [id number] DATE OF SURGERY/PROCEDURE: 09/16/2023 INCISION/PROCEDURE START TIME: 8:07 AM INCISION CLOSE/PROCEDURE END TIME: 9:21 AM PREOPERATIVE DIAGNOSIS: 1. Right upper quadrant biliary colic and cholelithiasis. 2. Hemangioma at the base of the gallbladder. POSTOPERATIVE DIAGNOSIS: 1. Right upper quadrant biliary colic and cholelithiasis. 2. Hemangioma at the base of the gallbladder. SURGEON: Ute Hart MD SOCIAL MEDIA DIRECTOR: LUCITA Heath SURGERY/PROCEDURE: Laparoscopic cholecystectomy, intraoperative cholangiogram. ANESTHESIA: General endotracheal. COMPLICATIONS: None. ESTIMATED BLOOD LOSS: 100 mL. SPECIMENS: Gallbladder. WOUND CLASS: 2. INDICATIONS: Patient is a pleasant 53-year-old female who was referred to ia for cholecystectomy. She did have a large [...] made. A cholangiogram was performed using the NeedisherTail catheter. This revealed no flow of contrast [...] me in the absence of qualified surgical services asst. She helped to retract the gallbladder and held the camera throughout the operation. Ute Hart MD TA:[id number] /[id number] Normal [facility] SURGICAL PATHOLOGYon 024 CASE REPORT Normal [facility] Comment on above: Order Comment: Speci men Type: TISSUE SPECIMEN Ordering Facility: [facility] Address: [address] [place] [address] Result Comment: [facility] Pathology Report Case: [id number] Authorizing Provider: Ute Hart MD Collected: 09/16/2023 09:11 AM Ordering Location: [facility] Received: 09/16/2023 11:51 AM Operating Room Pathologist: Evgeny Guido MD Specimen: GALLBLADDER Performed By: #### S #### [facility] CLIA [id number] [address] [place] [address] [place] CLINICAL HISTORY Normal [facility] Comment on above: Order Comment: Speci men Type: TISSUE SPECIMEN Ordering Facility: [facility] Address: [address] [place] [address] Result Comment: pre- op diagnosis: Calculus of gallbladder without cholecystitis without obstruction [K80.20] Performed By: #### S #### [facility] CLIA [id number] [address] [place] [address] FINAL DIAGNOSIS Normal [facility] Comment on above: Order Comment: Speci men Type: TISSUE SPECIMEN Ordering Facility: [facility] Address: [address] [place] [address] Result Comment: A. G allbladder, cholecystectomy: - Xanthogranulomatous cholecystitis. - Cholelithiasis. Performed By: #### S #### [facility] CLIA [id number] [address] [place] [address] OF [facility] FINAL PERFORMING LAB Normal [facility] Comment on above: Order Comment: Speci ryan Type: TISSUE SPECIMEN Ordering Facility: [facility] Address: [address] [place] [address] Result Comment: Diag nostic interpretation performed at [facility], [address] [place] [address] CLIA# [id number] Refining Machine Operator: Tor Eaton M.D. Performed By: #### S #### [facility] CLIA [id number] [address] [place] [address] GROSS DESCRIPTION A. GALLBLADDER Normal [facility] Comment on above: Order Comment: Speci [facility] Type: TISSUE SPECIMEN Ordering Facility: [facility] Address: [address] [place] [address] Result Comment: Rece ived in formalin designated [...] shave margin fundus with thickened area and patient service representative section of body are submitted cassette A1. BF September 16, 2023 12:45 PM Gross examination performed at [facility], [address] [place] [address] CLIA # [id number] Performed By: #### S #### [facility] CLIA [id number] [address] [place] [address] [place] TYPE + SCREENon 09-16-2023 ABO A Normal [facility] Comment on above: Order Comment: Speci men Type: BLOOD SPECIMEN Ordering Facility: [facility] Address: [address] [place] [address] Performed By: #### T SCR #### [facility] CLIA [id number] [address] [place] [address] [place] HISTORICAL AB SCR STATUS Negative [facility] Comment on above: Order Comment: Speci men Type: BLOOD SPECIMEN Ordering Facility: [facility] Address: [address] [place] [address] Performed By: #### T SCR #### [facility] CLIA [id number] [address] [place] [address] [place] Rh Nom (Bld) Positive [facility] Comment on above: Order Comment: Speci men Type: BLOOD SPECIMEN Ordering Facility: [facility] Address: [address] [place] [address] Performed By: #### T SCR #### [facility] CLIA [id number] [address] [place] [address] [place] TYPE AND SCREEN EXPIRATION 09/19/2023 23:59 [facility] Comment on above: Order Comment: Speci men Type: BLOOD SPECIMEN Ordering Facility: [facility] Address: [address] [place] [address] Performed By: #### T SCR #### [facility] [place] [id number] [address] [place] [address] [place] CBC W Auto Differential pane l (Bld)on 09-12-2023 Basophils (Bld) [#/Vol] 0.06 10*3/uL Normal <0.11 [facility] Comment on above: Order Comment: Speci men Type: BLOOD SPECIMENOrdering Facility: [facility] Address: [address] [place] [address] Performed By: #### 5 7021-8 ####[facility] [id number] [place] [address] [place] Basophils/100 WBC (Bld) 1.5 % Normal [facility] Comment on above: Order Comment: Speci men Type: BLOOD SPECIMENOrdering Facility: [facility] Address: [address] [place] [address] Performed By: #### 5 7021-8 ####[facility] [id number] [place] [address] [place] Differential cell count method Nom (Bld) Auto Normal [facility] Comment on above: Order Comment: Speci men Type: BLOOD SPECIMENOrdering Facility: [facility] Address: [address] [place] [address] Performed By: #### 5 7021-8 ####[facility] [id number] [place] [address] [place] Eosinophils (Bld) [#/Vol] 0.25 10*3/uL Normal <0.46 [facility] Comment on above: Order Comment: Speci men Type: BLOOD SPECIMENOrdering Facility: [facility] Address: [address] [place] [address] Performed By: #### 5 7021-8 ####[facility] LAB[facility]IA [id number] [place] [address] [place] Eosinophils/100 WBC (Bld) 6.1 % Normal [facility] Comment on above: Order Comment: Speci men Type: BLOOD SPECIMENOrdering Facility: [facility] Address: [address] [place] [address] Performed By: #### 5 7021-8 ####[facility] [id number] [place] [address] [place] Erythrocyte distribution width (RBC) [Ratio] 11.9 % Normal 11.5-15.0 [facility] Comment on above: Order Comment: Speci men Type: BLOOD SPECIMENOrdering Facility: [facility] Address: [address] [place] [address] Performed By: #### 5 7021-8 ####[facility]IA [id number] [place] [address] [place] Hematocrit (Bld) [Volume fraction] 41.4 % Normal 36.0-46.0 [facility] Comment on above: Order Comment: Speci men Type: BLOOD SPECIMENOrdering Facility: [facility] Address: [address] [place] [address] Performed By: #### 5 7021-8 ####[facility]IA [id number] [place] [address] [place] Hemoglobin (Bld) [Mass/Vol] 13.6 g/dL Normal 11.5-15.5 [facility] Comment on above: Order Comment: Speci men Type: BLOOD SPECIMENOrdering Facility: [facility] Address: [address] [place] [address] Performed By: #### 5 7021-8 ####[facility]IA [id number] [place] [address] [place] Immature granulocytes (Bld) [#/Vol] 10*3/uL Normal <0.10 [facility] Comment on above: Order Comment: Speci men Type: BLOOD SPECIMENOrdering Facility: [facility] Address: [address] [place] [address] Performed By: #### 5 7021-8 ####[facility] LABCLIA [id number] [address] [place] Immature granulocytes/100 WBC (Bld) 0.2 % Normal [facility] Comment on above: Order Comment: Speci men Type: BLOOD SPECIMENOrdering Facility: [facility] Address: [address] [place] [address] Performed By: #### 5 7021-8 ####[facility]IA [id number] [place] [address] [place] Lymphocytes (Bld) [#/Vol] 1.67 10*3/uL Normal 1.00-4.00 [facility] Comment on above: Order Comment: Speci men Type: BLOOD SPECIMENOrdering Facility: [facility] Address: [address] [place] [address] Performed By: #### 5 7021-8 ####[facility]IA [id number] [place] [address] [place] Lymphocytes/100 WBC (Bld) 40.5 % Normal [facility] Comment on above: Order Comment: Speci men Type: BLOOD SPECIMENOrdering Facility: [facility] Address: [address] [place] [address] Performed By: #### 5 7021-8 ####[facility]IA [id number] [place] [address] [place] MCH (RBC) [Entitic mass] 31.1 pg Normal 26.0-34.0 [facility] Comment on above: Order Comment: Speci men Type: BLOOD SPECIMENOrdering Facility: [facility] Address: [address] [place] [address] Performed By: #### 5 7021-8 ####[facility]IA [id number] [place] [address] [place] MCHC (RBC) [Mass/Vol] 32.9 g/dL Normal 30.5-36.0 [facility] Comment on above: Order Comment: Speci men Type: BLOOD SPECIMENOrdering Facility: [facility] Address: [address] [place] [address] Performed By: #### 5 7021-8 ####[facility] LABCLIA [id number] [place] [address] [place] MCV (RBC) [Entitic vol] 94.5 fL Normal 80.0-100.0 [facility] Comment on above: Order Comment: Speci men Type: BLOOD SPECIMENOrdering Facility: [facility] Address: [address] [place] [address] Performed By: #### 5 7021-8 ####[facility]IA [id number] [place] [address] [place] Monocytes (Bld) [#/Vol] 0.34 10*3/uL Normal <0.87 [facility] Comment on above: Order Comment: Speci men Type: BLOOD SPECIMENOrdering Facility: [facility] Address: [address] [place] [address] Performed By: #### 5 7021-8 ####[facility] LABCLIA [id number] [place] [address] [place] Monocytes/100 WBC (Bld) 8.3 % Normal [facility] Comment on above: Order Comment: Speci men Type: BLOOD SPECIMENOrdering Facility: [facility] Address: [address] [place] [address] Performed By: #### 5 7021-8 ####[facility]CLIA [id number] [place] [address] [place] Neutrophils (Bld) [#/Vol] 1.79 10*3/uL Normal 1.45-7.50 [facility] Comment on above: Order Comment: Speci men Type: BLOOD SPECIMENOrdering Facility: [facility] Address: [address] [place] [address] Performed By: #### 5 7021-8 ####[facility]CLIA [id number] [place] [address] [place] Neutrophils/100 WBC (Bld) 43.4 % Normal [facility] Comment on above: Order Comment: Speci men Type: BLOOD SPECIMENOrdering Facility: [facility] Address: [address] [place] [address] Performed By: #### 5 7021-8 ####[facility] [id number] [place] [address] [place] Nucleated RBC (Bld) [#/Vol] 10*3/uL Normal <0.01 [facility] Comment on above: Order Comment: Speci men Type: BLOOD SPECIMENOrdering Facility: [facility] Address: [address] [place] [address] Performed By: #### 5 7021-8 ####[facility] [id number] [place] [address] [place] Nucleated RBC/100 WBC (Bld) [Ratio] 0.0 /100 WBC Normal [facility] Comment on above: Order Comment: Speci men Type: BLOOD SPECIMENOrdering Facility: [facility] Address: [address] [place] [address] Performed By: #### 5 7021-8 ####[facility] [id number] [place] [address] [place] Platelet mean volume (Bld) [Entitic vol] 10.6 fL Normal 9.0-12.7 [facility] Comment on above: Order Comment: Speci men Type: BLOOD SPECIMENOrdering Facility: [facility] Address: [address] [place] [address] Performed By: #### 5 7021-8 ####[facility]IA [id number] [place] [address] [place] Platelets (Bld) [#/Vol] 287 10*3/uL Normal 150-400 [facility] Comment on above: Order Comment: Speci men Type: BLOOD SPECIMENOrdering Facility: [facility] Address: [address] [place] [address] Performed By: #### 5 7021-8 ####[facility] [id number] [place] [address] [place] RBC (Bld) [#/Vol] 4.38 10*6/uL Normal 3.90-5.20 [facility] Comment on above: Order Comment: Speci men Type: BLOOD SPECIMENOrdering Facility: [facility] Address: [address] [place] [address] Performed By: #### 5 7021-8 ####[facility] [id number] [place] [address] [place] WBC (Bld) [#/Vol] 4.12 10*3/uL Normal 3.70-11.00 [facility] Comment on above: Order Comment: Speci men Type: BLOOD SPECIMENOrdering Facility: [facility] Address: [address] [place] [address] Performed By: #### 5 7021-8 ####[facility] [id number] [place] [address] [place] NURSING PROGon 09-11-2023 NURSING PROG HNO ID: [id number] Author: MARISOL GALLEGOS, RN Service: Nursing Author Type: Registered Nurse Type: Nursing Progress Note Filed: 09/11/2023 13:40 Note Text: Chart reviewed for upcoming surgery. CMP drawn and resulted, CBC not drawn. Attempted to call lab to see if could be taken from lab already drawn-unable to do. Patient called and message left on voicemail of need to have lab completed at any [facility] lab near her home. Normal [facility] Comprehensive metabolic 2000 panelon 09-10-2023 Albumin [Mass/Vol] 4.6 g/dL Normal 3.9-4.9 [facility] Comment on above: Order Comment: Speci men Type: BLOOD SPECIMEN Ordering Facility: [facility] Address: [address] [place], [place] [address] Performed By: #### 2 157-6, 94088-7 #### [facility] CLIA [id number] [address] [place], [place] [address] [place] ALP [Catalytic activity/Vol] 130 U/L High 34-123 [facility] Comment on above: Order Comment: Speci men Type: BLOOD SPECIMEN Ordering Facility: [facility] Address: [address] [place], [place] [address] Performed By: #### 2 157-6, 03406-7 #### [facility] CLIA [id number] [address] [place] [address] [place] ALT [Catalytic activity/Vol] 124 U/L High 7-38 [facility] Comment on above: Order Comment: Speci men Type: BLOOD SPECIMEN Ordering Facility: [facility] Address: [address] [place] [address] Performed By: #### 2 157-6, 35066-6 #### [facility] CLIA [id number] [address] [place] [address] [place] Anion gap [Moles/Vol] 8 mmol/L Low 9-18 [facility] Comment on above: Order Comment: Speci men Type: BLOOD SPECIMEN Ordering Facility: [facility] Address: [address] [place] [address] Performed By: #### 2 157-6, 59462-0 #### [facility] CLIA [id number] [address] [place] [address] [place] AST [Catalytic activity/Vol] 35 U/L Normal 13-35 [facility] Comment on above: Order Comment: Speci men Type: BLOOD SPECIMEN Ordering Facility: [facility] Address: [address] [place], [place] [address] Performed By: #### 2 157-6, 97721-7 #### [facility] CLIA [id number] [address] [place] [address] [place] Bilirubin [Mass/Vol] 0.2 mg/dL Normal 0.2-1.3 [facility] Comment on above: Order Comment: Speci men Type: BLOOD SPECIMEN Ordering Facility: [facility] Address: [address] [place] [address] Performed By: #### 2 157-6, 64080-0 #### [facility] CLIA [id number] [address] [place] [address] [place] Calcium [Mass/Vol] 10.2 mg/dL Normal 8.5-10.2 [facility] Comment on above: Order Comment: Speci men Type: BLOOD SPECIMEN Ordering Facility: [facility] Address: [address] [place] [address] Performed By: #### 2 157-6, 21165-5 #### [facility] CLIA [id number] [address] [place] [address] [place] Chloride [Moles/Vol] 100 mmol/L Normal 97-105 [facility] Comment on above: Order Comment: Speci men Type: BLOOD SPECIMEN Ordering Facility: [facility] Address: [address] [place] [address] Performed By: #### 2 157-6, 06015-5 #### [facility] CLIA [id number] [address] [place] [address] [place] CO2 [Moles/Vol] 28 mmol/L Normal 22-30 [facility] Comment on above: Order Comment: Speci men Type: BLOOD SPECIMEN Ordering Facility: [facility] Address: [address] [place] [address] Performed By: #### 2 157-6, 97180-7 #### [facility] CLIA [id number] [address] [place] [address] [place] Creatinine [Mass/Vol] 0.74 mg/dL Normal 0.58-0.96 [facility] Comment on above: Order Comment: Donte davis Type: BLOOD SPECIMEN Ordering Facility: [facility] Address: [address] [place] [address] Performed By: #### 2 157-6, 78668-1 #### [facility] CLIA [id number] [address] [place] [address] [place] Creatinine and Glomerular filtration rate.predicted panel (S/P/Bld) 97 mL/min/1.73m??? Normal >=60 [facility] Comment on above: Order Comment: Donte davis Type: BLOOD SPECIMEN Ordering Facility: [facility] Address: [address] [place] [address] Result Comment: Petra mated Glomerular Filtration Rate [...] actual GFR. Performed By: #### 2 157-6, 71165-3 #### [facility] CLIA [id number] [address] [place] [address] [place] Glucose [Mass/Vol] 93 mg/dL Normal 74-99 [facility] Comment on above: Order Comment: Donte davis Type: BLOOD SPECIMEN Ordering Facility: [facility] Address: [address] [place] [address] Result Comment: The [place] Diabetes Association (ADA) provides guidance for cutoff [...] Standards of Medical Care in Diabetes 2016, [place] [employer]. Diabetes Care. 2016.39(Suppl 1). Performed By: #### 2 157-6, 38102-6 #### [facility] CLIA [id number] [address] [place] [address] [place] Potassium [Moles/Vol] 4.6 mmol/L Normal 3.7-5.1 [facility] Comment on above: Order Comment: Speci men Type: BLOOD SPECIMEN Ordering Facility: [facility] Address: [address] [place] [address] Performed By: #### 2 157-6, 29120-7 #### [facility] CLIA [id number] [address] [place] [address] [place] Protein [Mass/Vol] 7.6 g/dL Normal 6.3-8.0 [facility] Comment on above: Order Comment: Speci men Type: BLOOD SPECIMEN Ordering Facility: [facility] Address: [address] [place] [address] Performed By: #### 2 157-6, 35919-2 #### [facility] CLIA [id number] [address] [place] [address] [place] Sodium [Moles/Vol] 136 mmol/L Normal 136-144 [facility] Comment on above: Order Comment: Speci men Type: BLOOD SPECIMEN Ordering Facility: [facility] Address: [address] [place] [address] Performed By: #### 2 157-6, 46342-9 #### [facility] CLIA [id number] [address] [place] [address] [place] Urea nitrogen [Mass/Vol] 11 mg/dL Normal 7-21 [facility] Comment on above: Order Comment: Speci men Type: BLOOD SPECIMEN Ordering Facility: [facility] Address: [address] [place] [address] Performed By: #### 2 157-6, 09725-3 #### [facility] CLIA [id number] [address] [place] [address] [place] ECG COMPLETEon 09-10-2023 ECG COMPLETE Ventricular Rate : 6 7 BPM Atrial Rate : 67 BPM P-R Interval : 150 ms QRS Duration : 86 ms Q-T Interval : 414 ms QTC Calculation(Bazett) : 437 ms Calculated P Waka : 58 degrees Calculated R Waka : 38 degrees Calculated T Waka : 38 degrees NORMAL SINUS RHYTHM NORMAL ECG Confirmed by DIAZ MEJÍA MD ([id number]) on 09/11/2023 7:14:45 AM NAME : STACIE DAVIDSON PID : [id number] : 1970 Gender : Female Race : ORD : [id number] Procedure Date : Sep 10 2023 16:23:01 Edit Date : Sep 11 2023 07:14:48 Diagnosis: NORMAL SINUS RHYTHM NORMAL ECG Confirmed by DIAZ MEJÍA MD ([id number]) on 09/11/2023 7:14:45 AM Test Reason : SURGERY Location : 545 : [facility] Overread By : DIAZ MEJÍA MD Edited By : DIAZ MEJÍA MD Referred By : UTE HART Acquired by : Afshan FENG [facility] HISTORY PHYSICALon HISTORY PHYSICAL HNO ID: [id number] Author: ROXANN FRANCOIS APRN.CNP Service: ? Author Type: Nurse Practitioner Type: H&P Filed: 09/11/2023 05:49 Note Text: HISTORY AND PHYSICAL EXAMINATION SERVICE DATE: 09/10/2023 SERVICE TIME: 4:35 PM PRIMARY CARE PHYSICIAN: Marry Schroeder, ALVIN, SALES REPRESENTATIVE [employer] INSURANCE REASON FOR VISIT: Stacie Davidson is a [...] COVID-19 original vaccine, age 12+ yr, monovalent (Mashed jobs - PURPLE TOP) 12/08/2020 Imm Admin: COVID-19 original vaccine, age 12+ yr, monovalent (Mashed jobs - PURPLE TOP) REVIEW OF SYSTEMS: PAIN ASSESSMENT: General: No weight loss, malaise or fevers. Neuro: No history of TIA's, stroke, VARNISH COOKER tumor, impaired sensorium, hemiplegia, paraplegia or quadraplegia. No neurological symptoms or problems. Respiratory: Positive for Asthma, , Negative for Current cough, Pneumonia within 6 weeks (date) Cardiovascular: No history of HTN requiring medication, no history of angina, CHF, MS, cardiac surgery or stents. Denies rest pain, gangrene or revascularization/amputa tion for PVD. No history of cardiovascular symptoms or problems. 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 Normal [facility] CNOVon 09-04-2023 CNOV Office Visit (BMIREJ ) -------- STACIE DAVIDSON ([id number]) 1970 F Date Time Provider Department 09/04/23 [...] of acute right upper quadrant discomfort [facility]. She subsequently underwent imaging that [...] is quite healthy. She works at the [employer], no heavy lifting involved. She does not [...] of acute right upper quadrant discomfort [facility]. She subsequently underwent imaging that [...] is quite healthy. She works at the [employer], no heavy lifting involved. She does not [...] Confounding fa (more content not included)... Normal [facility] CT LIVER W IVCONon 3 CT LIVER W IVCON * * *Final Report* * * DATE OF EXAM: Aug 21 2023 9:30AM [facility] 0548 - CT LIVER W IVCON [...] There is mild bibasilar juxtapleural subsegmental atelectasis. Acoustical Logging Engineer (topogram) images: No additional findings. IMPRESSION: 1. [...] any questions regarding this interpretation, please call [phone]. If you are unable to reach us at the number above, please feel free to contact [facility] eRadiology at [phone]. [id number] Normal [facility] CT Liver W contrast Venkat IMPRESSION: 1. [...] any questions regarding this interpretation, please call [phone]. If you are unable to reach us at the number above, please feel free [facility] at [phone]. DIVISION OF RADIOLOGY * * *Final Report* * * DATE OF EXAM: Aug 21 2023 9:30AM [facility] 0548 - CT LIVER W IVCON [...] There is mild bibasilar juxtapleural subsegmental atelectasis. Acoustical Logging Engineer (topogram) images: No additional findings. DIVISION OF RADIOLOGY Provider, [facility] - 08/21/2023 * * *Final Report* * * DATE OF EXAM: Aug 21 2023 9:30AM [facility] 0548 - CT LIVER W IVCON [...] There is mild bibasilar juxtapleural subsegmental atelectasis. Acoustical Logging Engineer (topogram) images: No additional findings. IMPRESSION IMPRESSION: [...] any questions regarding this interpretation, please call [phone]. If you are unable to reach us at the number above, please feel free to contact [facility]Radiology at [phone]. [facility] Radiology Study observation (narrative) [facility] CT Liver W contrast IVOrdere d By: Ccf Provider on 08-21-2023 [facility] Yancy 07-27-2023 CNPN Telephone ([facility]) -------- STACIE DAVIDSON ([id number]) 1970 F Date Time Provider Department 07/27/23 UTE HART [facility] During your visit today, we recorded the following information about you: Milagro Ag 07/27/2023 10:46 AM Signed Referral received and scanned into [facility]. Reason for referral hepatic hemangioma, RUQ [...] in preventing side effects Provided patient with [facility] appt number to schedule CT Pre medication [...] Diagnosis:Liver mass [R16.0] Order(s):CT LIVER W IVCON [[id number]] Order #: [id number] FUTURE iv contrast (will be provided with [...] before CT Scan Encounter Status:Closed by EMERALD MEELNDEZ RN on 08/05/23 Normal [facility] Ambulatory Visit Summaryon 1 09-22-2022 Ambulatory Visit Summary STACIE DAVIDSON :1970 Visit Date:07/23/2023 Ambulatory Visit Instructions Your Care Team Attending Physician - CUONG RAGUETA, Roxann Pride Primary Care Physician - MARRY [...] for choosing us for your care. Normal [facility] ED Note-Physicianon 07-23-20 ED Note-Physician [id number]#[id number] [facility] RAD - Ultrasound Reporton RAD - Ultrasound Report [id number] FF [facility] Urinalysis - AUTOMATEDon Appearance (U) cloudy [employer] Other Bilirubin Ql (U) Negative 10X10 Room Other Color (U) dark yellow [employer] Other Glucose Ql (U) Negative [employer] Other Hemoglobin Ql (U) Large [employer] Other Ketones Ql (U) Negative [employer] Other Leukocyte esterase Test strip Ql (U) Large [employer] Other Nitrite Ql (U) Negative [employer] Other pH (U) 6.0 [pH] [employer] Other Protein Ql (U) >300 [employer] Other Specific gravity (U) [Rel density] >1.030 [employer] Other Urobilinogen (U) [Mass/Vol] 0.2 mg/dL [employer] Other Urinalysis - AUTOMATED No rt [employer] Other Urine Cultureon 07-11-2023 Urine Culture >100,000 [employer] Other Bacteria identified Cx Nom (U) ORGANISM: Escherichia coli (O:ESCCOL) Mingus Count >100,000 Aerobic ANIYAH Charge (NMIC56) - [...] RESISTANT TO ALL B-LACTAM DRUGS. PERFORMED BY: [place] [address] PATHOLOGIST POLICE SPECIALIST ALICE MOORE M.D. Normal The [facility] Comment on above: Performed By: #### C UU #### [address] ALONDRA by IFAon 10-08-2022 Antinuclear Antibodies, IFA Positive Abnormal [facility] Comment on above: Result Comment: Nega tive <1:80 Borderline 1:80 Positive >1:80 Performed By: #### A NAIFA ####[facility] [address] [place] [address]Dr. Nish Beauchamp Centriole Pattern Normal The [facility] Comment on above: Performed By: #### A NAIFA ####[facility] [address] [place] [address]Dr. Nish Beauchamp Centromere Pattern Normal The [facility] Comment on above: Performed By: #### A NAIFA ####[facility] [address] [place] [address]Dr. Nish Beauchamp Homogeneous Pattern Normal The [facility] Comment on above: Performed By: #### A NAIFA ####[facility] [address] [place], [place] [address]Hz. Nish Beauchamp Midbody Pattern Normal The [facility] Comment on above: Performed By: #### A ZARINA ####[facility] [address] [place], [place] [address]Dt. Nish Beauchamp Note: Comment Normal [facility] Comment on above: Result Comment: For [...] titers Nucleosomes, Histones Drug-induced SLE Speckled Sm, ACCIDENT EXAMINER, SCL-70, SLE,MCTD,PSS (diffuse form), SS-A/SS-B Sjogrens Nucleolar SCL-70, PM-1/SCL High titers Scleroderma, PM/DM Centromere Centromere PSS (limited form) w/Crest syndrome variable Nuclear Dot Sp100,f46-orttdc Primary Biliary Cirrhosis Nuclear GP210, Primary Biliary Cirrhosis Membrane stefan A,B,C Performed By: #### A NAIFA ####[facility] [address] [place], [place] [address]Dr. Nish Beauchamp Nuclear Dot Pattern Normal [facility] Comment on above: Performed By: #### A NAIFA ####[facility] [address] [place] [address]Dr. Nish Beauchamp Nuclear Membrane Pattern Normal [facility] Comment on above: Performed By: #### A NAIFA ####[facility] [address] [place] [address]Dr. Nish Beauchamp Nucleolar Pattern Normal The [facility] Comment on above: Performed By: #### A NAIFA ####[facility] [address] [place] [address]Dr. Nish Beauchamp PCNA Pattern Normal [facility] Comment on above: Performed By: #### A NAIFA ####[facility] [address] [place], [place] [address]Dr. Nish Beauchamp Speckled Pattern 1:640 Critically high [facility] Comment on above: Result Comment: Dens e Fine Speckled pattern is noted. This pattern suggests the presence of DFS70 antibody which has a low prevalence in systemic autoimmune rheumatic diseases. ICAP nomenclature: AC-2,4,5,29 Performed By: #### A NAIFA ####[facility] [address] [place] [address]Dr. Nish Beauchamp Spindle Apparatus Pattern Normal [facility] Comment on above: Performed By: #### A NAIFA ####[facility] [address] [place] [address]Dr. Nish Beauchamp ANTISTREPTOLYSIN O AB (ASO)o n 10-05-2022 Antistreptolysin O Ab 250.4 IU/mL Critically high 0.0-200. 0 [facility] Comment on above: Performed By: #### A SOAB #### [facility] [address] [place] [address] [address] Nish Beauchamp RHEUMATOID FACTORon 10-05-19 23 RA Latex Turbid. 10.8 IU/mL Normal <14.0 [facility] Comment on above: Performed By: #### R F ####[facility] [address] [place], [place] [address]Dr. Nish Beauchamp CBC AUTO DIFFon 10-04-2022 BASO # 0.1 103/ul Normal 0.0-0.1 [facility] Comment on above: Performed By: #### C BC ####[facility] [address] [place] [address]Dr. Nish Beauchamp Basophils/100 WBC (Bld) 1.2 % Normal 0.2-2.0 [facility] Comment on above: Performed By: #### C BC ####[facility] [address] [place] [address]Dr. Nish Beauchamp EO # 0.2 103/ul Normal 0.0-0.7 [facility] Comment on above: Performed By: #### C BC ####[facility] [address] [place] [address]Dr. Nish Beauchamp Eosinophils/100 WBC (Bld) 3.6 % Normal 0.9-7.0 [facility] Comment on above: Performed By: #### C BC ####[facility] [address] [place] [address]Dr. Nish Beauchamp Erythrocyte distribution width (RBC) [Ratio] 12.4 % Normal 11.0-15.0 [facility] Comment on above: Performed By: #### C BC ####[facility] [address] [place] [address]Dr. Nish Beauchamp Hematocrit (Bld) [Volume fraction] 42.6 % Normal 36.0-48.0 [facility] Comment on above: Performed By: #### C BC ####[facility] [address] [place], [place] [address]Dr. Nish Beauchamp Hemoglobin (Bld) [Mass/Vol] 14.2 g/dL Normal 12.0-16.0 [facility] Comment on above: Performed By: #### C BC ####[facility] [address] [place], [place] [address]Dr. Nish Beauchamp IG # 0.01 10e3/ul Normal 0.00-0.03 [facility] Comment on above: Performed By: #### C BC ####[facility] [address] [place], [place] [address]Dr. Nish Beauchamp IG % 0.2 % Normal 0.0-0.5 [facility] Comment on above: Performed By: #### C BC ####[facility] [address] [place], [place] [address]Dr. Nish Beauchamp LYMPH # 2.0 103/ul Normal 1.2-3.8 [facility] Comment on above: Performed By: #### C BC ####[facility] [address] [place], [place] [address]Dr. Nish Beauchamp Lymphocytes/100 WBC (Bld) 37.6 % Normal 20.5-60.0 [facility] Comment on above: Performed By: #### C BC ####[facility] [address] [place] [address]Dr. Nish Beauchamp MANUAL DIFF REQ NO Normal [facility] Comment on above: Performed By: #### C BC ####[facility] [address] [place] [address]Dr. Nish Beauchamp MCH (RBC) [Entitic mass] 30.9 pg Normal 26.7-34.0 [facility] Comment on above: Performed By: #### C BC ####[facility] [address] [place] [address]Dr. Nish Beauchamp MCHC (RBC) [Mass/Vol] 33.3 g/dL Normal 29.9-35.2 [facility] Comment on above: Performed By: #### C BC ####[facility] [address] [place] [address]Dr. Nish Beauchamp MCV (RBC) [Entitic vol] 92.6 fL Normal 81.0-99.0 [facility] Comment on above: Performed By: #### C BC ####[facility] [address] [place], [place] [address]Dr. Nish Beauchamp MONO # 0.5 103/ul Normal 0.3-0.8 [facility] Comment on above: Performed By: #### C BC ####[facility] [address] [place], [place] [address]Dr. Nish Beauchamp Monocytes/100 WBC (Bld) 9.2 % Normal 1.7-12.0 [facility] Comment on above: Performed By: #### C BC ####[facility] [address] [place], [place] [address]Dr. Elsyifeanyi Beauchamp NEUT # 2.5 103/ul Normal 1.4-6.5 [facility] Comment on above: Performed By: #### C BC ####[facility] [address] [place], [place] [address]Dr. Nish Beauchamp Neutrophils/100 WBC (Bld) 48.2 % Normal 43.0-75.0 [facility] Comment on above: Performed By: #### C BC ####[facility] [address] [place], [place] [address]Dr. Nish Beauchamp Platelet mean volume (Bld) [Entitic vol] 9.8 fL Normal 9.5-13.5 [facility] Comment on above: Performed By: #### C BC ####[facility] [address] [place] [address]Dr. Nish Beauchamp PLT 301 103/ul Normal 150-450 [facility] Comment on above: Performed By: #### C BC ####[facility] [address] [place], [place] [address]Bj. Nish Beauchamp RBC 4.60 106/ul Normal 4.20-5.40 [facility] Comment on above: Performed By: #### C BC ####[facility] [address] [place] [address]Dr. Nish Nito WBC 5.2 103/ul Normal 4.0-11.0 [facility] Comment on above: Performed By: #### C BC ####[facility] [address] [place] [address]Dr. Nish Beauchamp CRPon 10-04-2022 CRP [Mass/Vol] mg/L Normal <=1.0 [facility] Comment on above: Performed By: #### C RP, URIC, CMP, TSH ####[facility] [address] [place] [address]Dr. Nish Beauchamp FREE T4on 10-04-2022 Free T4 [Mass/Vol] 0.87 ng/dL Normal 0.76-1.46 [facility] Comment on above: Performed By: #### V ITB12, FT4 #### [facility] [address] [place], [place] [address] Dr. Nish Beauchamp PROF 14(COMP METB)on 023 Albumin [Mass/Vol] 4.2 g/dL Normal 3.4-5.0 [facility] Comment on above: Performed By: #### C RP, URIC, CMP, TSH ####[facility] [address] [place] [address]Dr. Nish Beauchamp Albumin/Globulin [Mass ratio] 1.1 {ratio} Normal [facility] Comment on above: Performed By: #### C RP, URIC, CMP, TSH ####[facility] [address] [place] [address]Dr. Nish Beauchamp ALP [Catalytic activity/Vol] 90 U/L Normal 46-116 [facility] Comment on above: Performed By: #### C RP, URIC, CMP, TSH ####[facility] [address] [place] [address]Dr. Nish Beuachamp ALT [Catalytic activity/Vol] 63 U/L Critically high 14-59 [facility] Comment on above: Performed By: #### C RP, URIC, CMP, TSH ####[facility] [address] [place] [address]Dr. Nish Beauchamp Anion gap [Moles/Vol] 12.7 mmol/L Normal [facility] Comment on above: Performed By: #### C RP, URIC, CMP, TSH ####[facility] [address] [place] [address]Dr. Nish Beauchamp AST [Catalytic activity/Vol] 38 U/L Critically high 15-37 [facility] Comment on above: Performed By: #### C RP, URIC, CMP, TSH ####[facility] [address] [place] [address]Dr. Nish Beauchamp Bilirubin [Mass/Vol] 0.3 mg/dL Normal 0.2-1.0 [facility] Comment on above: Performed By: #### C RP, URIC, CMP, TSH ####[facility] [address] [place] [address]Dr. Nish Beauchamp Calcium [Mass/Vol] 9.4 mg/dL Normal 8.5-10.1 [facility] Comment on above: Performed By: #### C RP, URIC, CMP, TSH ####[facility] [address] [place] [address]Dr. Nish Beauchamp Chloride [Moles/Vol] 100 mmol/L Normal 98-107 [facility] Comment on above: Performed By: #### C RP, URIC, CMP, TSH ####[facility] [address] [place] [address]Dr. Nish Beauchamp CO2 [Moles/Vol] 30.1 mmol/L Normal 21.0-32.0 [facility] Comment on above: Performed By: #### C RP, URIC, CMP, TSH ####[facility] [address] [place] [address]Dr. Nish Beauchamp Creatinine [Mass/Vol] 0.75 mg/dL Normal 0.55-1.02 [facility] Comment on above: Performed By: #### C RP, URIC, CMP, TSH ####[facility] [address] [place] [address]Dr. Nish Beauchamp EGFR-AF PARAGUAYAN >60 Normal >=60 [facility] Comment on above: Performed By: #### C RP, URIC, CMP, TSH ####[facility] [address] [place] [address]Dr. Nish Beauchamp EGFR-NON AF PARAGUAYAN >60 Normal >=60 [facility] Comment on above: Performed By: #### C RP, URIC, CMP, TSH ####[facility] [address] [place] [address]Dr. Nish Beauchamp Globulin (S) [Mass/Vol] 3.9 g/dL Normal [facility] Comment on above: Performed By: #### C RP, URIC, CMP, TSH ####[facility] Gktqiuztic[address] [place], [place] [address]Dr. Nish Beauchamp Glucose [Mass/Vol] 95 mg/dL Normal 74-106 [facility] Comment on above: Performed By: #### C RP, URIC, CMP, TSH ####[facility] Mwzctayy[address] [place], [place] [address]Dr. Nish Beauchamp Potassium [Moles/Vol] 3.8 mmol/L Normal 3.5-5.1 [facility] Comment on above: Performed By: #### C RP, URIC, CMP, TSH ####[facility] J[address]ctpx[address] [place], [place] [address]Dr. Nish Beauchamp Protein [Mass/Vol] 8.1 g/dL Normal 6.4-8.2 [facility] Comment on above: Performed By: #### C RP, URIC, CMP, TSH ####[facility] E[address]sh[address] [place], [place] [id number]. Nish Beauchamp Sodium [Moles/Vol] 139 mmol/L Normal 136-145 [facility] Comment on above: Performed By: #### C RP, URIC, CMP, TSH ####[facility] [address] [place] [id number]. Nish Beauchamp Urea nitrogen [Mass/Vol] 13.0 mg/dL Normal 7.0-18.0 [facility] Comment on above: Performed By: #### C RP, URIC, CMP, TSH ####[facility] [address] [place] [address]Dr. Nish Beauchamp Urea nitrogen/Creatinine [Mass ratio] 17.3 mg/mg Normal [facility] Comment on above: Performed By: #### C RP, URIC, CMP, TSH ####[facility] [address] [place] [address]Dr. Nish Beauchamp [facility] mm/hr Critically high <=30 [facility] Comment on above: Performed By: #### S EDR #### [facility] [address] [address] [address] Nish Beauchamp TSHon 10-04-2022 TSH 0.876 uIU/mL Normal 0.358-3.740 [facility] Comment on above: Performed By: #### C RP, URIC, CMP, TSH ####[facility] [address] [place] [address]Dr. Nish Beauchamp URIC ACID SERUMon 10-04-2022 Urate [Mass/Vol] 4.8 mg/dL Normal 2.6-6.0 [facility] Comment on above: Performed By: #### C RP, URIC, CMP, TSH ####[facility] [address] [address]Dr. Nish Beauchamp VITAMIN B12on 10-04-2022 Cobalamin (Vitamin B12) [Mass/Vol] 439.0 pg/mL Normal 193.0-986.0 [facility] Comment on above: Performed By: #### V ITB12, FT4 #### [facility] [address] [address] [address] Nish Beauchamp MG MAMM SCREEN 3D MARY CADon 08-05-2022 MG MAMM SCREEN 3D MARY CAD Patient: STACIE DAVIDSON Exam Date: 08/05/2022 : 1970 Gender:F Ordering : ALVIN MARRY SCHROEDER [facility] Admission #: [id number] Family : Order #: [id number] CLICK HERE TO VIEW EXAM RADIOLOGY REPORT [...] Treatments None Family Cancers None LOCATION: [facility] BREAST COMPOSITION: Heterogeneously dense,which may obscure [...] M.D. on 08/05/2022 at 15:22 Normal [facility] UA RANDOM W/MICROSCOPICon BACTERIA SMALL Abnormal NONE SEEN [facility] Comment on above: Performed By: #### U AMIC ####[facility] [address] [place] [address]Dr. Nish Beauchamp Bilirubin Ql (U) Negative Normal NEGATIVE [facility] Comment on above: Performed By: #### U AMIC ####[facility] [address] [place] [id number]. Nish Beauchamp CAST NONE SEEN Normal NONE SEEN [facility] Comment on above: Performed By: #### U AMIC ####[facility] [address] [address]Dr. Nish Beauchamp Clarity (U) CLEAR Normal CLEAR [facility] Comment on above: Performed By: #### U AMIC ####[facility] [address] [place] [address]Dr. Nish Beauchamp Color (U) LT. YELLOW Normal YELLOW [facility] Comment on above: Performed By: #### U AMIC ####[facility] [address] [place], [place] [address]Dr. Nish Beauchamp Crystals LM Nom (Urine sed) NONE SEEN Normal NONE SEEN [facility] Comment on above: Performed By: #### U AMIC ####[facility] [address] [place] [address]Dr. Nish Beauchamp Epithelial cells LM Ql (Urine sed) FEW Abnormal NONE SEEN /RARE [facility] Comment on above: Performed By: #### U AMIC ####[facility] Mr[address]rsybet[address] [place], [place] [address]Dr. Nish Beauchamp Glucose Ql (U) Negative Normal NEGATIVE [facility] Comment on above: Performed By: #### U AMIC ####[facility] Lukooqlqkn[address] [place], [place] [address]Dr. Nish Beauchamp Hemoglobin Ql (U) TRACE-INTACT Abnormal NEGATIVE [facility] Comment on above: Performed By: #### U AMIC ####[facility] Epfwilydpm[address] [place], [place] [address]Dr. Nish Beauchamp Ketones Ql (U) Negative Normal NEGATIVE [facility] Comment on above: Performed By: #### U AMIC ####[facility] [address]ie[address] [place], [place] [address]Dr. Nish Beauchamp LEUKOCYTES SMALL Abnormal NEGATIVE [facility] Comment on above: Performed By: #### U AMIC ####[facility] Ox[address]uhay[address] [place], [place] [address]Dr. Nsih Beauchamp MUCOUS NONE SEEN Normal NONE SEEN [facility] Comment on above: Performed By: #### U AMIC ####[facility] [address] [place] [address]Dr. Nish Beauchamp Nitrite Ql (U) Negative Normal NEGATIVE [facility] Comment on above: Performed By: #### U AMIC ####[facility] [address] [place] [address]Dr. Nish Beauchamp pH (U) 6.0 [pH] Normal 5-9 [facility] Comment on above: Performed By: #### U AMIC ####[facility] [address] [place] [address]Dr. Nish Beauchamp RBC 0-2 Normal 0-2 [facility] Comment on above: Performed By: #### U AMIC ####[facility] [address] [place] [address]DrJailene Beauchamp SPEC GRAVITY 1.010 Normal 1.005-<=1.0 25 [facility] Comment on above: Performed By: #### U AMIC ####[facility] [address] [place] [address]DrJailene Beauchamp UA PROTEIN Negative Normal NEGATIVE/ TRACE [facility] Comment on above: Performed By: #### U AMIC ####[facility] [address] [place] [address]DrJailene Beauchamp Urobilinogen Qn (U) 0.2 {Martha'U}/dL Normal 0.2 - 1. 0 [facility] Comment on above: Performed By: #### U AMIC ####[facility] [address] [place] [address]DrJailene Beauchamp WBC 2-5 Abnormal NONE SEEN [facility] Comment on above: Performed By: #### U AMIC ####[facility] [address] [place] [address]DrJailene Beauchamp AMYLASEon 05-30-2022 Amylase [Catalytic activity/Vol] 82 U/L Normal 25-115 [facility] Comment on above: Performed By: #### L IPA, BONG, CMP #### [facility] [address] [address] [address] Nish Beauchamp CBC AUTO DIFFon 05-30-2022 BASO # 0.1 103/ul Normal 0.0-0.1 [facility] Comment on above: Performed By: #### C BC #### [facility] [address] [place] [address] Dr. Nish Beauchamp Basophils/100 WBC (Bld) 1.1 % Normal 0.2-2.0 [facility] Comment on above: Performed By: #### C BC #### [facility] [address] [place] [address] Dr. Nish Beauchamp EO # 0.2 103/ul Normal 0.0-0.7 [facility] Comment on above: Performed By: #### C BC #### [facility] [address] [place] [address] Dr. Nish Beauchamp Eosinophils/100 WBC (Bld) 4.3 % Normal 0.9-7.0 [facility] Comment on above: Performed By: #### C BC #### [facility] [address] [place] [address] Dr. Nish Beauchamp Erythrocyte distribution width (RBC) [Ratio] 12.4 % Normal 11.0-15.0 [facility] Comment on above: Performed By: #### C BC #### [facility] [address] [place] [address] Dr. Nish Beauchamp Hematocrit (Bld) [Volume fraction] 42.5 % Normal 36.0-48.0 [facility] Comment on above: Performed By: #### C BC #### [facility] [address] [place] [address] Dr. Nish Beauchamp Hemoglobin (Bld) [Mass/Vol] 13.7 g/dL Normal 12.0-16.0 [facility] Comment on above: Performed By: #### C BC #### [facility] [address] [place] [address] Dr. Nish Beauchamp IG # 0.02 10e3/ul Normal 0.00-0.03 [facility] Comment on above: Performed By: #### C BC #### [facility] [address] [place] [address] Dr. Nish Beauchamp IG % 0.4 % Normal 0.0-0.5 [facility] Comment on above: Performed By: #### C BC #### [facility] [address] [place] [address] Dr. Nish Beauchamp LYMPH # 1.9 103/ul Normal 1.2-3.8 [facility] Comment on above: Performed By: #### C BC #### [facility] [address] [place] [address] Dr. Nish Beauchamp Lymphocytes/100 WBC (Bld) 35.0 % Normal 20.5-60.0 [facility] Comment on above: Performed By: #### C BC #### [facility] [address] [place] [address] Dr. Nish Beauchamp MANUAL DIFF REQ NO Normal [facility] Comment on above: Performed By: #### C BC #### [facility] [address] [place] [address] Dr. Nish Beauchamp MCH (RBC) [Entitic mass] 30.5 pg Normal 26.7-34.0 [facility] Comment on above: Performed By: #### C BC #### [facility] [address] [place] [address] Dr. Nish Beauchamp MCHC (RBC) [Mass/Vol] 32.2 g/dL Normal 29.9-35.2 [facility] Comment on above: Performed By: #### C BC #### [facility] [address] [place] [address] Dr. Nish Beauchamp MCV (RBC) [Entitic vol] 94.7 fL Normal 81.0-99.0 [facility] Comment on above: Performed By: #### C BC #### [facility] [address] [place] [address] Dr. Nish Beauchamp MONO # 0.5 103/ul Normal 0.3-0.8 [facility] Comment on above: Performed By: #### C BC #### [facility] [address] [place] [address] Dr. Nish Beauchamp Monocytes/100 WBC (Bld) 8.8 % Normal 1.7-12.0 [facility] Comment on above: Performed By: #### C BC #### [facility] [address] [place] [address] Dr. Nish Beauchamp NEUT # 2.7 103/ul Normal 1.4-6.5 [facility] Comment on above: Performed By: #### C BC #### [facility] [address] [place] [address] Dr. Nish Beauchamp Neutrophils/100 WBC (Bld) 50.4 % Normal 43.0-75.0 [facility] Comment on above: Performed By: #### C BC #### [facility] [address] [place] [address] Dr. Nish Beauchamp Platelet mean volume (Bld) [Entitic vol] 10.6 fL Normal 9.5-13.5 [facility] Comment on above: Performed By: #### C BC #### [facility] [address] [place] [address] Dr. Nish Beauchamp PLT 288 103/ul Normal 150-450 [facility] Comment on above: Performed By: #### C BC #### [facility] [address] [place] [address] Dr. Nish Beauchamp RBC 4.49 106/ul Normal 4.20-5.40 [facility] Comment on above: Performed By: #### C BC #### [facility] [address] [place] [address] Dr. Nish Beauchamp WBC 5.3 103/ul Normal 4.0-11.0 [facility] Comment on above: Performed By: #### C BC #### [facility] [address] [place] [address] Dr. Nish Beauchamp LIPASEon 05-30-2022 Lipase [Catalytic activity/Vol] 261.0 U/L Normal 73.0-393.0 [facility] Comment on above: Performed By: #### L IPA, BONG, CMP #### [facility] [address] [place] [address] Dr. Nish Beauchamp PROF 14(COMP METB)on 022 Albumin [Mass/Vol] 4.0 g/dL Normal 3.4-5.0 [facility] Comment on above: Performed By: #### L BONG BACA, CMP #### [facility] [address] [address] [address] Nish Beauchamp Albumin/Globulin [Mass ratio] 1.1 {ratio} Normal [facility] Comment on above: Performed By: #### L BONG BACA, CMP #### [facility] [address] [address] [address] Nish Beauchamp ALP [Catalytic activity/Vol] 75 U/L Normal 46-116 [facility] Comment on above: Performed By: #### L BONG BACA, CMP #### [facility] [address] [address] [address] Nish Beauchamp ALT [Catalytic activity/Vol] 29 U/L Normal 14-59 [facility] Comment on above: Performed By: #### L BONG BACA, CMP #### [facility] [address] [address] [address] Nish Beauchamp Anion gap [Moles/Vol] 11.1 mmol/L Normal [facility] Comment on above: Performed By: #### L BONG BACA, CMP #### [facility] [address] [place] [address] Dr. Nish Beauchamp AST [Catalytic activity/Vol] 19 U/L Normal 15-37 [facility] Comment on above: Performed By: #### L BONG BACA, CMP #### [facility] [address] [address] [address] Nish Beauchamp Bilirubin [Mass/Vol] 0.2 mg/dL Normal 0.2-1.0 [facility] Comment on above: Performed By: #### L BONG BACA, CMP #### [facility] [address] [address] [address] Nish Beauchamp Calcium [Mass/Vol] 9.2 mg/dL Normal 8.5-10.1 [facility] Comment on above: Performed By: #### L BONG BACA, CMP #### [facility] [address] [address] [address] Nish Beauchamp Chloride [Moles/Vol] 105 mmol/L Normal 98-107 [facility] Comment on above: Performed By: #### L BONG BACA, CMP #### [facility] [address] [address] [address] Nish Beauchamp CO2 [Moles/Vol] 29.0 mmol/L Normal 21.0-32.0 [facility] Comment on above: Performed By: #### L BONG BACA, CMP #### [facility] [address] [address] [address] Nish Beauchamp Creatinine [Mass/Vol] 0.86 mg/dL Normal 0.55-1.02 [facility] Comment on above: Performed By: #### L BONG BACA, CMP #### [facility] [address] [address] [address] Nish Beauchamp EGFR-AF PARAGUAYAN >60 Normal >=60 [facility] Comment on above: Performed By: #### L BONG BACA, CMP #### [facility] [address] [address] [address] Nish Beauchamp EGFR-NON AF PARAGUAYAN >60 Normal >=60 [facility] Comment on above: Performed By: #### L BONG BACA, CMP #### [facility] [address] [address] [address] Nish Beauchamp Globulin (S) [Mass/Vol] 3.7 g/dL Normal [facility] Comment on above: Performed By: #### L BONG BACA, CMP #### [facility] [address] [address] [address] Nish Beauchamp Glucose [Mass/Vol] 106 mg/dL Normal 74-106 [facility] Comment on above: Performed By: #### L BONG BACA, CMP #### [facility] [address] [address] [address] Nish Beauchamp Potassium [Moles/Vol] 4.1 mmol/L Normal 3.5-5.1 [facility] Comment on above: Performed By: #### L BONG BACA, CMP #### [facility] [address] [address] [address] Nish Beauchamp Protein [Mass/Vol] 7.7 g/dL Normal 6.4-8.2 [facility] Comment on above: Performed By: #### L BONG BACA, CMP #### [facility] [address] [address] [address] Nish Beauchamp Sodium [Moles/Vol] 141 mmol/L Normal 136-145 [facility] Comment on above: Performed By: #### L BONG BACA, CMP #### [facility] [address] [address] [address] Nish Beauchamp Urea nitrogen [Mass/Vol] 19.0 mg/dL Critically high 7.0-18.0 [facility] Comment on above: Performed By: #### L BONG BACA, CMP #### [facility] [address] [address] [address] Nish Beauchamp Urea nitrogen/Creatinine [Mass ratio] 22.1 mg/mg Normal [facility] Comment on above: Performed By: #### L BONG BACA, CMP #### [facility] [address] [address] [address] Nish Beauchamp UA RANDOM W/MICROSCOPICon BACTERIA SMALL Abnormal NONE SEEN [facility] Comment on above: Performed By: #### U AMIC ####[facility] [address] [place] [address]DrJailene Beauchamp Bilirubin Ql (U) Negative Normal NEGATIVE [facility] Comment on above: Performed By: #### U AMIC ####[facility] [address] [place] [address]DrJailene Beauchamp CAST NONE SEEN Normal NONE SEEN [facility] Comment on above: Performed By: #### U AMIC ####[facility] [address] [place] [address]DrJailene Beauchamp Clarity (U) CLEAR Normal CLEAR [facility] Comment on above: Performed By: #### U AMIC ####[facility] [address] [place] [address]DrJailene Beauchamp Color (U) LT. YELLOW Normal YELLOW [facility] Comment on above: Performed By: #### U AMIC ####[facility] [address] [place] [address]Dr. Nish Beauchamp Crystals LM Nom (Urine sed) NONE SEEN Normal NONE SEEN [facility] Comment on above: Performed By: #### U AMIC ####[facility] [address] [place] [id number]. Nish Beauchamp Epithelial cells LM Ql (Urine sed) MODERATE Abnormal NONE SEEN /RARE [facility] Comment on above: Performed By: #### U AMIC ####[facility] [address] [place] [address]Dr. Nish Beauchamp Glucose Ql (U) Negative Normal NEGATIVE [facility] Comment on above: Performed By: #### U AMIC ####[facility] [address] [place] [address]Dr. Nish Beauchamp Hemoglobin Ql (U) SMALL Abnormal NEGATIVE [facility] Comment on above: Performed By: #### U AMIC ####[facility] [address] [place] [address]Dr. Nish Beauchamp Ketones Ql (U) Negative Normal NEGATIVE [facility] Comment on above: Performed By: #### U AMIC ####[facility] [address] [place] [address]Dr. Nish Beauchamp LEUKOCYTES TRACE Abnormal NEGATIVE [facility] Comment on above: Performed By: #### U AMIC ####[facility] [address] [place] [id number]. Nish Beauchamp MUCOUS NONE SEEN Normal NONE SEEN [facility] Comment on above: Performed By: #### U AMIC ####[facility] [address] [place] [address]Dr. Nish Beauchamp Nitrite Ql (U) Negative Normal NEGATIVE [facility] Comment on above: Performed By: #### U AMIC ####[facility] [address] [place] [id number]. Nish Beauchamp pH (U) 5.5 [pH] Normal 5-9 [facility] Comment on above: Performed By: #### U AMIC ####[facility] [address] [place] [id number]. Nish Beauchamp RBC 2-5 Abnormal 0-2 [facility] Comment on above: Performed By: #### U AMIC ####[facility] [address] [place], [place] [address]Pg. Nish Beauchamp SPEC GRAVITY >=1.030 Abnormal 1.005-<=1.0 25 [facility] Comment on above: Performed By: #### U AMIC ####[facility] [address] [place] [id number]. Nish Beauchamp UA PROTEIN Negative Normal NEGATIVE/ TRACE [facility] Comment on above: Performed By: #### U AMIC ####[facility] [address] [place] [id number]. Nish Beauchamp Urobilinogen Qn (U) 0.2 {Martha'U}/dL Normal 0.2 - 1. 0 [facility] Comment on above: Performed By: #### U AMIC ####[facility] [address] [place] [id number]. Nish Beauchamp WBC 2-5 Abnormal NONE SEEN [facility] Comment on above: Performed By: #### U AMIC ####[facility] [address] [place] [id number]. Nish Beauchamp CT ABDOMEN WO/W CONon 2021 [...] by: LOREN WHEATLEY Date: 2022-05-21 08:55 Normal [facility] US SINGLE QUAD RT UPPERon [...] by: LOREN WHEATLEY Date: 2022-05-19 08:42 Normal [facility] MG MAMM DX 3D RT CADon 01-22 MG MAMM DX 3D RT CAD Patient: RADHA DAVIDSON Exam Date: 01/22/2022 : 1970 Gender:F Ordering : ALVIN SCHROEDER CNP Admission #: [id number] Family : Order #: [id number] CLICK HERE TO VIEW EXAM RADIOLOGY REPORT [...] No Treatments None Family Cancers None LOCATION: [facility] BREAST COMPOSITION: Heterogeneously dense,which may [...] Wheatley M.D. on 01/22/2022 at 10:17 Normal [facility] Vital Signs Date Time Vital Sign Value Performing Clinician Facility 06-21-2024 08:0400 Body height 154.94 cm [facility] 06-21-2024 08:270400 Body mass index (BMI) [Ratio] 32.3 kg/m2 [facility] 06-21-2024 08:270400 Body temperature 95.9 [degF] [facility] 06-21-2024 08:270400 Body weight 77.62 kg [facility] 06-21-2024 08:270400 Diastolic blood pressure 86 mm[Hg] [facility] 06-21-2024 08:270400 Heart rate 106 /min [facility] 06-21-2024 08:27-0400 SaO2% (BldA) [Mass fraction] 94 % [facility] 06-21-2024 08:27-0400 Systolic blood pressure 122 mm[Hg] [facility] 04-19-2024 09:04-0400 Body mass index (BMI) [Ratio] 31.32 kg/m2 Tim Plaza MD Work Phone: [facility] 04-19-2024 09:04-0400 Body weight 75.2 kg Tim Plaza MD Work Phone: [facility] 04-19-2024 09:04-0400 Diastolic blood pressure 82 mm[Hg] Tim Plaza MD Work Phone: [facility] 04-19-2024 09:04-0400 Heart rate 91 /min Tim Plaza MD Work Phone: [facility] 04-19-2024 09:04-0400 SaO2% (BldA) [Mass fraction] 99 % Tim Plaza MD Work Phone: [facility] 04-19-2024 09:04-0400 Systolic blood pressure 135 mm[Hg] Tim Plaza MD Work Phone: [facility] 04-04-2024 09:57-0400 Body height 154.94 cm LAUREN Lawson Work Phone: [facility] 04-04-2024 09:57-0400 Body mass index (BMI) [Ratio] 31.1 kg/m2 LAUREN Lawson Work Phone: [facility] 04-04-2024 09:57-0400 Body weight 74.84 kg LAUREN Lawson Work Phone: [facility] 04-04-2024 09:57-0400 Diastolic blood pressure 80 mm[Hg] LAUREN Lawson Work Phone: [facility] 04-04-2024 09:57-0400 Heart rate 96 /min LAUREN Lawson Work Phone: [facility] 04-04-2024 09:57-0400 SaO2% (BldA) [Mass fraction] 98 % LAUREN Lawson Work Phone: [facility] 04-04-2024 09:57-0400 Systolic blood pressure 132 mm[Hg] LAUREN Light Lulu Work Phone: [facility] 03-23-2024 09:18-0400 Body height 154.9 cm [facility] 03-23-2024 09:18-0400 Body mass index (BMI) [Ratio] 30.99 kg/m2 [facility] 03-23-2024 09:18-0400 Body weight 74.39 kg [facility] 03-23-2024 09:18-0400 Diastolic blood pressure 78 mm[Hg] [facility] 03-23-2024 09:18-0400 Systolic blood pressure 120 mm[Hg] [facility] 03-07-2024 08:32-0400 Body height 154.94 cm [facility] 03-07-2024 08:32-0400 Body mass index (BMI) [Ratio] 31.1 kg/m2 [facility] 03-07-2024 08:32-0400 Body weight 74.84 kg [facility] 03-07-2024 08:32-0400 Diastolic blood pressure 78 mm[Hg] [facility] 03-07-2024 08:32-0400 Heart rate 81 /min [facility] 03-07-2024 08:32-0400 SaO2% (BldA) [Mass fraction] 100 % [facility] 03-07-2024 08:32-0400 Systolic blood pressure 122 mm[Hg] [facility] 01-27-2024 09:31-0400 Body height 154.94 cm [facility] 01-27-2024 09:31-0400 Body mass index (BMI) [Ratio] 31.1 kg/m2 [facility] 01-27-2024 09:31-0400 Body weight 74.84 kg [facility] 01-27-2024 09:31-0400 Diastolic blood pressure 76 mm[Hg] [facility] 01-27-2024 09:31-0400 Heart rate 96 /min [facility] 01-27-2024 09:31-0400 SaO2% (BldA) [Mass fraction] 98 % [facility] 01-27-2024 09:31-0400 Systolic blood pressure 124 mm[Hg] [facility] 01-12-2024 08:26-0400 Body height 154.94 cm [facility] 01-12-2024 08:26-0400 Body mass index (BMI) [Ratio] 31.1 kg/m2 [facility] 01-12-2024 08:26-0400 Body weight 74.84 kg [facility] 01-12-2024 08:26-0400 Diastolic blood pressure 76 mm[Hg] [facility] 01-12-2024 08:26-0400 Heart rate 103 /min [facility] 01-12-2024 08:26-0400 SaO2% (BldA) [Mass fraction] 97 % [facility] 01-12-2024 08:26-0400 Systolic blood pressure 120 mm[Hg] [facility] 01-06-2024 09:35-0400 Body height 154.9 cm Tim Plaza MD Work Phone: [facility] 01-06-2024 09:35-0400 Body mass index (BMI) [Ratio] 31.24 kg/m2 Tim Plaza MD Work Phone: [facility] 01-06-2024 09:35-0400 Body weight 75 kg Tim Plaza MD Work Phone: [facility] 01-06-2024 09:35-0400 Diastolic blood pressure 74 mm[Hg] Tim Plaza MD Work Phone: [facility] 01-06-2024 09:35-0400 Heart rate 85 /min Tim Plaza MD Work Phone: [facility] 01-06-2024 09:35-0400 Systolic blood pressure 130 mm[Hg] Tim Plaza MD Work Phone: [facility] 12-15-2023 07:49-0400 Body height 154.94 cm [facility] 12-15-2023 07:49-0400 Body mass index (BMI) [Ratio] 30.9 kg/m2 [facility] 12-15-2023 07:49-0400 Body weight 74.38 kg [facility] 12-15-2023 07:49-0400 Diastolic blood pressure 86 mm[Hg] [facility] 12-15-2023 07:49-0400 Heart rate 104 /min [facility] 12-15-2023 07:49-0400 Systolic blood pressure 122 mm[Hg] [facility] 11-10-2023 08:01-0400 Body height 154.94 cm [facility] 11-10-2023 08:01-0400 Body mass index (BMI) [Ratio] 31.5 kg/m2 [facility] 11-10-2023 08:01-0400 Body weight 75.74 kg [facility] 11-10-2023 08:01-0400 Diastolic blood pressure 86 mm[Hg] [facility] 11-10-2023 08:01-0400 Heart rate 80 /min [facility] 11-10-2023 08:01-0400 SaO2% (BldA) [Mass fraction] 98 % [facility] 11-10-2023 08:01-0400 Systolic blood pressure 124 mm[Hg] [facility] 10-13-2023 13:07-0500 Body height 154.94 cm [facility] 10-13-2023 13:07-0500 Body mass index (BMI) [Ratio] 31.7 kg/m2 [facility] 10-13-2023 13:07-0500 Body weight 76.2 kg [facility] 10-13-2023 13:07-0500 Diastolic blood pressure 76 mm[Hg] [facility] 10-13-2023 13:07-0500 Heart rate 87 /min [facility] 10-13-2023 13:07-0500 SaO2% (BldA) [Mass fraction] 98 % [facility] 10-13-2023 13:07-0500 Systolic blood pressure 114 mm[Hg] [facility] 09-30-2023 12:53-0500 Body height 154.9 cm 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.SALES REPRESENTATIVE [employer] INSURANCE Work Phone: [facility] 09-30-2023 12:53-0500 Body temperature 98.6 [degF] 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.SALES REPRESENTATIVE [employer] INSURANCE Work Phone: [facility] 09-30-2023 12:53-0500 Body weight 73.94 kg 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.SALES REPRESENTATIVE [employer] INSURANCE Work Phone: [facility] 09-30-2023 12:53-0500 Diastolic blood pressure 80 mm[Hg] 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.SALES REPRESENTATIVE [employer] INSURANCE Work Phone: [facility] 09-30-2023 12:53-0500 Heart rate 78 /min 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.SALES REPRESENTATIVE [employer] INSURANCE Work Phone: [facility] 09-30-2023 12:53-0500 SaO2% (BldA) [Mass fraction] 100 % 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.SALES REPRESENTATIVE [employer] INSURANCE Work Phone: [facility] 09-30-2023 12:53-0500 Systolic blood pressure 125 mm[Hg] 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.SALES REPRESENTATIVE [employer] INSURANCE Work Phone: [facility] 07-23-2023 09:39-0500 Blood Pressure Location Roxann HUTCHINS [facility] [place] 07-23-2023 09:39-0500 Diastolic blood pressure 88 mm[Hg] Roxann HUTCHINS [facility] [place] 07-23-2023 09:39-0500 Heart rate 88 /min Roxann HUTCHINS [facility] [place] 07-23-2023 09:39-0500 Respiratory rate 16 /min Roxann HUTCHINS [facility] [place] 07-23-2023 09:39-0500 Systolic blood pressure 140 mm[Hg] Roxann HUTCHINS [facility] General Surgery [place] 07-11-2023 12:15-0500 Body height 154.94 cm Dayanara Jay Other [employer] Other 07-11-2023 12:15-0500 Body mass index (BMI) [Ratio] 32.57 kg/m2 Dayanara Thompson Other [employer] Other 07-11-2023 12:15-0500 Body temperature 98.7 [degF] Dayanara Thompson Other [employer] Other 07-11-2023 12:15-0500 Body weight 78.2 kg Dayanara Thompson Other [employer] Other 07-11-2023 12:15-0500 Respiratory rate 18 /min Dayanara Thompson Other [employer] Other 07-11-2023 12:15-0500 SaO2% (BldA) [Mass fraction] 99 % Dayanara Thompson Other [employer] Other 05-31-2023 14:20-0400 Body height 154.94 cm Rylee Barrientos Other [employer] Other 05-31-2023 14:20-0400 Body mass index (BMI) [Ratio] 31.89 kg/m2 Rylee Barrientos Other [employer] Other 05-31-2023 14:20-0400 Body temperature 97.5 [degF] Rylee Barrientos Other [employer] Other 05-31-2023 14:20-0400 Body weight 76.57 kg Rylee Iliana Other [employer] Other 05-31-2023 14:20-0400 Diastolic blood pressure 82 mm[Hg] Rylee Iliana Other [employer] Other 05-31-2023 14:20-0400 Respiratory rate 18 /min Rylee Iliana Other [employer] Other 05-31-2023 14:20-0400 SaO2% (BldA) [Mass fraction] 99 % Rylee Iliana Other [employer] Other 05-31-2023 14:20-0400 Systolic blood pressure 125 mm[Hg] Rylee Iliana Other [employer] Other Encounters Encounter Date Encounter Type Care Provider Facility Start: 06-21-2024 End: 06-21-2024 Departed Referred 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 Nadege Lawson Work Phone: [facility] [place] Work Phone: Start: 06-21-2024 End: 06-21-2024 ambulatory Nadege Lawson [facility] Work Phone: Start: 06-21-2024 End: 06-21-2024 [facility] Start: 04-19-2024 Non-patient / Non-visit [facility] Work Phone: Start: 04-19-2024 End: 04-19-2024 ambulatory TIM PLAZA Facility:[facility] Start: 04-19-2024 End: 04-19-2024 Office outpatient visit 15 minutes Tim Plaza MD Work Phone: Rheumatology Comment on above: Ds DNA antibody posi tive (Primary Dx) Start: 04-04-2024 End: 04-04-2024 ambulatory 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Anna RivasNadegecornelio Lawson Work Phone: [facility] Work Phone: Start: 04-04-2024 End: 04-04-2024 Patient encounter procedure 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 Nadege Lulu Work Phone: [facility] Work Phone: Start: 03-23-2024 End: 03-23-2024 Initial preventive medicine new patient 40-64yrs [facility] Ob Nurseryman Assistant [facility] [place] Comment on above: Well woman exam with routine gynecological exam (Primary Dx); Cervical smear, as part of routine gynecological examination; Standardized adult depression screening tool completed; Screening for colon cancer Start: 03-23-2024 End: 03-23-2024 Patient encounter procedure [facility] Nurseryman Assistant [facility] Start: 03-23-2024 End: 03-23-2024 ambulatory [facility] Start: 03-23-2024 End: 03-23-2024 Encounter for gynecological examination (general) (routine) without abnormal findings [facility] Nurseryman Assistant [facility] Work Phone: Start: 03-23-2024 End: 03-23-2024 ambulatory [facility] Start: 03-23-2024 Encounter for gynecological examination (general) (routine) without abnormal findings [facility] Start: 03-07-2024 End: 03-07-2024 Departed Referred LAUREN Lawson Work Phone: [facility] [place] Work Phone: Start: 03-07-2024 End: 03-07-2024 ambulatory LAUREN Lawson Work Phone: [facility] Work Phone: Start: 03-07-2024 End: 03-07-2024 Patient encounter procedure [facility] Work Phone: Start: 01-27-2024 End: 01-27-2024 ambulatory [facility] Work Phone: Start: 01-27-2024 End: 01-27-2024 Patient encounter procedure [facility] Work Phone: Start: 01-15-2024 End: 01-15-2024 ambulatory Tim Plaza MD Work Phone: Rheumatology Comment on above: Ds DNA antibody posi tive (Primary Dx); Polyarthralgia; Positive ALONDRA (antinuclear antibody); Chronic pain syndrome Start: 01-15-2024 End: 01-15-2024 Telemedicine consultation with patient Tim Plaza MD Work Phone: Rheumatology Start: 01-12-2024 End: 01-12-2024 ambulatory [facility] Work Phone: Start: 01-12-2024 End: 01-12-2024 Patient encounter procedure [facility] Work Phone: Start: 01-06-2024 End: 01-06-2024 ambulatory Yamil Talisha RT(R) Radiology Comment on above: Radiology XR Start: 01-06-2024 Patient encounter procedure Yamil Talisha RT(R) Radiology Start: 01-06-2024 Non-patient / Non-visit [facility] Work Phone: Start: 01-06-2024 End: 01-06-2024 Subsequent hospital visit by physician Xr [facility] Radiology Comment on above: Polyarthralgia [M25. 50] Start: 01-06-2024 End: 01-06-2024 Office consultation new/estab patient 80 min Tim Plaza MD Work Phone: Rheumatology Comment on above: Polyarthralgia (Prim temi Dx); Positive ALONDRA (antinuclear antibody); Chronic pain syndrome; Dry mouth Start: 12-23-2023 Non-patient / Non-visit [facility] Work Phone: Start: 12-15-2023 End: 12-15-2023 ambulatory [facility] Work Phone: Start: 12-15-2023 End: 12-15-2023 Patient encounter procedure [facility] Work Phone: Start: 11-10-2023 End: 11-10-2023 ambulatory [facility] Work Phone: Start: 11-10-2023 End: 11-10-2023 Patient encounter procedure [facility] Work Phone: Start: 10-16-2023 Non-patient / Non-visit [facility] Work Phone: Start: 10-13-2023 Telephone encounter Ute betancourt MD Work Phone: General Surgery Comment on above: Fit for duty letter Start: 10-13-2023 End: 10-13-2023 ambulatory [facility] Work Phone: Start: 10-13-2023 End: 10-13-2023 Patient encounter procedure [facility] Work Phone: Start: 10-05-2023 Telephone encounter Ute betancourt MD Work Phone: General Surgery Comment on above: return to work fitne ss form Start: 09-30-2023 End: 09-30-2023 Patient encounter procedure 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.SALES REPRESENTATIVE HE[employer] INSURANCE Work Phone: General Surgery Comment on above: S/P gastrointestinal surgery, follow-up exam (Primary Dx); S/P laparoscopic cholecystectomy Start: 09-30-2023 End: 09-30-2023 ambulatory MEREDITH BLANCO Facility:[facility] Start: 09-23-2023 Telephone encounter Ute betancourt MD Work Phone: General Surgery Comment on above: FMLA Paperwork Start: 09-16-2023 End: 09-16-2023 ambulatory UTE HART Facility:[facility] Start: 09-12-2023 End: 09-12-2023 ambulatory MARRY SCHROEDER Facility:[facility] Start: 09-10-2023 Encounter for other preprocedural examination MARRY SCHROEDER [facility] Start: 09-10-2023 End: 09-10-2023 ambulatory MARRY SCHROEDER Facility:[facility] Start: 09-04-2023 End: 09-04-2023 ambulatory UTE HART Facility:[facility] Start: 08-21-2023 End: 08-21-2023 ambulatory MEREDITH BLANCO Facility:[facility] Start: 08-21-2023 End: 08-21-2023 Subsequent hospital visit by physician Arrival Time Radiology Work Phone: Radiology [facility] Comment on above: 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 General Surgery [place] Start: 07-20-2023 ambulatory Roxann WHITNEYL Facility:[facility] Start: 07-14-2023 End: 07-14-2023 ambulatory Dayanara Thompson Other [employer] Other Start: 07-14-2023 Telephone encounter Dayanara Thompson [facility] [address] Start: 07-11-2023 Office outpatient vi sit 15 minutes Dayanara Thompson [facility] Start: 07-11-2023 End: 07-11-2023 ambulatory DNP Nadege Aly Work Phone: [facility] Work Phone: Start: 07-11-2023 End: 07-11-2023 Departed Referred DNP Nadege Aly Work Phone: [facility] [place] Work Phone: Start: 05-31-2023 End: 05-31-2023 ambulatory Rylee Iliana Other [facility] Other Start: 05-31-2023 Office outpatient ne w 20 minutes Rylee Barrientos [facility] Start: 10-04-2022 End: 10-05-2022 ambulatory SALES REPRESENTATIVE HEALTH INSURANCE MARRY AICHHOLZ Facility:[facility] Start: 08-05-2022 End: 08-06-2022 ambulatory SALES REPRESENTATIVE HEALTH INSURANCE MARRY AICHHOLZ Facility:[facility] Start: 06-17-2022 End: 06-18-2022 ambulatory SALES REPRESENTATIVE HEALTH INSURANCE MARRY AICHHOLZ Facility:[facility] Start: 05-30-2022 End: 05-31-2022 ambulatory SALES REPRESENTATIVE HE[employer] INSURANCE MARRY AICHHOLZ Facility:[facility] Start: 05-21-2022 End: 05-22-2022 ambulatory SALES REPRESENTATIVE HE[employer] INSURANCE MARRY AICHHOLZ Facility:[facility] Start: 05-19-2022 End: 05-20-2022 ambulatory SALES REPRESENTATIVE HE[employer] INSURANCE MARRY AICHHOLZ Facility:[facility] Start: 01-22-2022 End: 01-23-2022 ambulatory SALES REPRESENTATIVE [employer] INSURANCE MARRY AICHHOLZ Facility:[facility] Procedures Date Procedure Procedure Detail Performing Clinician Start: 03-23-2024 Adult depression screening assessment [facility] Nurseryman Assistant Start: 03-07-2024 Urine culture 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 Shalonda Lawson Work Phone: Start: 01-06-2024 Urinalysis Start: 01-06-2024 Radex spine cervical 4 or 5 views Tim Plaza MD Work Phone: Start: 09-16-2023 Antibody screen UTE TRINH Comment on above: Order Comment: Speci men Type: BLOOD SPECIMEN Ordering Facility: [facility] Address: [address] [place] [address] Performed By: #### T SCR #### [facility] CLIA [id number] [place] [address] [place] Start: 08-21-2023 Ct abdomen w/contras t laxmi Blanco 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.SALES REPRESENTATIVE HEALTH INSURANCE Work Phone: History of cholecystectomy S/P laparoscopic cholecystectomy 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.SALES REPRESENTATIVE HEALTH INSURANCE Work Phone: None (qualifier value) Adonis HUTCHINS Plan of Treatment Date Care Activity Detail Author Start: 04-19-2027 Diabetes Screening Diabetes Screening [facility] Start: 01-05-2027 Diabetes Screening Diabetes Screening [facility] Start: 09-10-2026 Diabetes Screening Diabetes Screening [facility] Start: 05-30-2025 DTaP,Tdap and Td Vaccines (2 - Td or Tdap) DTaP,Tdap and Td Vaccines (2 - Td or Tdap) [facility] Start: 05-30-2025 Urine microalbumin profile DTaP,Tdap,Td Vaccine (2 - Td or Tdap) [facility] Start: 03-23-2025 Adult BMI Screening Adult BMI Screening [facility] Start: 03-23-2025 Depression Screening Depression Screening [facility] Start: 03-23-2025 Tobacco Screening Tobacco Screening [facility] Start: 10-25-2024 End: 10-25-2024 Patient encounter procedure 10/25/2024 9:20 AM EST Office Visit Rheumatology [address] [place] [address] Tim Plaza MD [address] [place] [address] : Return in about 6 months (around 10/20/2024). Rheumatology Comment on above: : Return in about 6 months (around 2024). Start: 06-21-2024 Bacteria identified in Urine by Culture Urine Culture [facility] Start: 06-21-2024 Urine culture [facility] Start: 04-24-2024 Covid-19 Vaccine ( season) Covid-19 Vaccine () [facility] Start: 04-24-2024 Influenza vaccination [facility] Start: 04-19-2024 End: 07-19-2024 Complement C3 [Mass/volume] in Serum or Plasma [facility] Comment on above: Expected: 04/19/2024, Expires: Start: 04-19-2024 End: 07-19-2024 Complement C4 [Mass/volume] in Serum or Plasma [facility] Comment on above: Expected: 04/19/2024, Expires: Start: 04-19-2024 End: 07-19-2024 Comprehensive metabolic 2000 panel - Serum or Plasma [facility] Comment on above: Expected: 04/19/2024, Expires: Start: 04-19-2024 End: 07-19-2024 DNA double strand Ab [Presence] in Serum by Immunofluorescence (IF) Radha agosto [facility] Comment on above: Expected: 04/19/2024, Expires: Start: 04-19-2024 End: 07-19-2024 DNA double strand Ab [Units/volume] in Serum by Immunoassay [facility] Comment on above: Expected: 04/19/2024, Expires: Start: 04-19-2024 End: 07-19-2024 Protein/Creatinine [Mass Ratio] in Urine [facility] Work Phone: Comment on above: Expected: 04/19/2024, Expires: Start: 04-19-2024 End: 04-19-2024 Patient encounter procedure 04/19/2024 9:30 AM EDT Office Visit Rheumatology [address] [place], [place] [id number] Tim Plaza MD [address] [place] [address] 3 month follow up Rheumatology Comment on above: 3 month follow up Start: 04-04-2024 Patient referral [facility] Work Phone: Start: 03-23-2024 End: 03-23-2025 Cytopathology procedure, preparation of smear, genital source Pap Smear Pathology and Cytology Routine Cervical smear, as part of routine gynecological examination Expected: 03/23/2024 (Approximate), Expires: 03/23/2025 [facility] Work Phone: Comment on above: Expected: 03/23/2024 (Approximate), Expi res: 03/23/2025 Start: 03-07-2024 Bacteria identified in Urine by Culture [facility] Start: 01-15-2024 End: 01-15-2024 Telephone follow-up 01/15/2024 9:00 AM EDT [facility] Rheumatology [address] [address] Tim Plaza MD [address] [place] [address] Virtual follow up; Phone call preferred Rheumatology Comment on above: Virtual follow up; Phone call preferred Start: 01-06-2024 End: 04-06-2024 25-hydroxyvitamin D3 [Mass/volume] in Serum or Plasma [facility] Comment on above: Expected: 01/06/2024, Expires: Start: 01-06-2024 End: 04-06-2024 ALONDRA BY IFA SCREEN [facility] Work Phone: Comment on above: Expected: 01/06/2024, Expires: Start: 01-06-2024 End: 04-06-2024 Cyclic citrullinated peptide IgG Ab [Units/volume] in Serum or Plasma [facility] Comment on above: Expected: 01/06/2024, Expires: 4 Start: 01-06-2024 End: 04-06-2024 DNA double strand Ab [Units/volume] in Serum by Immunoassay [facility] Comment on above: Expected: 01/06/2024, Expires: 4 Start: 01-06-2024 End: 04-06-2024 Extractable nuclear Ab panel - Serum [facility] Comment on above: Expected: 01/06/2024, Expires: Start: 01-06-2024 End: 04-06-2024 PROTEIN ELECTROPHORESIS SERUM W/INTERP [facility] Comment on above: Expected: 01/06/2024, Expires: 4 Start: 07-11-2023 Bacteria identified in Urine by Culture Urine Culture [facility] Start: 04-24-2023 Covid-19 Vaccine ( season) Covid-19 Vaccine ( season) [facility] Start: 04-24-2023 Influenza vaccination [facility] Start: 08-24-2022 Depression Assessment Depression Assessment [facility] Start: 2020 Administration of varicella zoster vaccine Zoster (Shingles) Vaccine (1 of 2) [facility] Start: 2020 Shingrix Vaccine (1 of 2) Shingrix Vaccine (1 of 2) [facility] Start: 2015 Diabetes Screening Diabetes Screening [facility] Start: 2015 Lipid panel Lipid Screening [facility] Start: 2015 Screening for malignant neoplasm of colon [facility] Start: 2010 Screening for malignant neoplasm of breast [facility] Start: 2000 Screening for malignant neoplasm of cervix HPV Testing [facility] Start: 1991 Screening for malignant neoplasm of cervix [facility] Start: 1989 Hepatitis B Vaccine (1 of 3 - 19+ 3-dose series) Hepatitis B Vaccine (1 of 3 - 19+ 3-dose series) [facility] Start: 1988 Adult BMI Follow Up Plan Adult BMI Follow Up Plan [facility] Start: 1988 Annual PCP Team Chronic Disease Visit Annual PCP Team Chronic Disease Visit [facility] Start: 1988 Anxiety Screening Anxiety Screening [facility] Start: 1988 Hepatitis C screening Hepatitis C Screening [facility] Start: 1988 HIV screening HIV Screening [facility] Start: 1988 Spirometry Spirometry [facility] Start: 1976 Pneumococcal vaccination Pneumococcal Vaccine (1 of 2 - PCV) [facility] Start: 1970 Hepatitis B Vaccine (1 of 3 - 3-dose series) Hepatitis B Vaccine (1 of 3 - 3-dose series) [facility] Adenosine monophosphate.cyclic [Moles/volume] in Serum or Plasma [facility] Cologuard [facility] Cologuar d [facility] Lab Routine Screening for colon cancer Ordered: 03/23/2024 [facility] Comment on above: Ordered: 03/23/2024 Comprehensive metabo lic 2000 panel - Serum or Plasma [facility] End: 09-01-2024 Ct abdomen w/contrast material CT LIVER W IVCON Radiology Routine Calculus of gallbladder without cholecystitis without obstruction Liver mass 1 Occurrences starting 08/03/2023 until 09/01/2024 [facility] Work Phone: Comment on above: 1 Occurrences starting 08/03/2023 until 09/01/2024 End: 03-23-2025 High risk HPV w/letty High risk HPV w/letty Lab Routine Cervical smear, as part of routine gynecological examination 1 Occurrences starting 03/23/2024 until 03/23/2025 [employer] Comment on above: 1 Occurrences starting 03/23/2024 until 03/23/2025 Patient referral [facility] Work Phone: Rheumatoid factor [Units/volume] in Serum or Plasma [facility] US Liver [facility] Immunizations Immunization Date Immunization Notes Care Provider Fa cility 12-29-2020 SARS-CoV-2 (COVID-19 ) mRNA BNT-162b2 vax Roxann HUTCHINS [facility] 12-08-2020 SARS-CoV-2 (COVID-19 ) mRNA BNT-162b2 vax Roxann HUTCHINS [facility] 05-30-2015 tetanus toxoid, reduced diphtheria toxoid, and acellular pertussis vaccine, adsorbed Rylee Barrientos Other [facility] NEGATED: Highlighted row has not occurred!07-23-2023 influenza virus vaccine, unspecified formulation Roxann HUTCHINS [facility] Payers Date Payer Category Payer Self-pay [id number] 2021 Unknown [id number] 1970 Unknown [id number] 2.16.84 [id number] 1970 Unknown [id number] 2.16.84 0.1.035074.3.579.2.593 1970 Unknown [id number] 2.16.84 0.1.904199.3.579.2.593 1970 Unknown [id number] 2.16.84 0.1.043019.3.579.2.593 1970 Unknown [id number] 2.16.84 0.1.950434.3.579.2.593 1970 Unknown [id number] 2.16.84 0.1.521972.3.579.2.593 1970 Unknown [id number] 2.16.84 0.1.329965.3.579.2.593 1970 Unknown [id number] 2.16.8 40.1.141674.3.579.2.727 1970 Unknown [id number] 2.16.8 40.1.633138.3.579.2.1286 1970 Unknown [id number] 2.16.8 40.1.251216.3.579.2.1286 1959 Unknown [id number] 1959 Unknown [id number] Unknown [id number] Unknown [facility] [id number] Unknown [id number] 2.16.8 40.1.558798.3.579.2.531 Unknown [id number] 2.16.8 40.1.818475.3.579.2.531 Unknown [id number] 2.16.8 40.1.617908.3.579.2.531 Social History Date Type Detail Facility Unknown if ever smoked [employer] Other Start: 09-30-2023 End: 03-23-2024 Sex Assigned At [facility] Start: 02-07-2019 End: 03-23-2024 Tobacco smoking status NHIS Never smoked tobacco (finding) [facility] Start: 1970 Sex Assigned At Female [facility] Tobacco smoking status Never [facility] Tobacco smoking status NHIS Tobacco smoking consumption unknown [facility] Start: 1970 Sex Assigned At Not on file C [facility] Start: 09-10-2023 End: 03-23-2024 Tobacco use and exposure Smokeless tobacco non-user [facility] Start: 09-30-2023 End: 04-19-2024 Alcohol intake Ex-drinker (finding) [facility] Start: 09-30-2023 End: 03-23-2024 History of Social function [facility] Start: 03-23-2024 Alcoholic beverage intake Current drinker of alcohol (finding) [facility] Start: 03-23-2024 Alcohol Comment OCCASIONAL [facility] Functional Status Date Assessment Result Facility 07-23-2023 Functional Status N/A [facility] Clinical Notes 05-31-2023 to 04-19-2024 Tim Plaza MD - 04/19/2024 9:10 AM Rhonda Wade LPN - 03/23/2024 9:15 AM Tim Hart MD - 01/15/2024 9:03 AM EDTPatiYamil Greer RT(R) - 01/06/2024 10:59 AM EDT Note Date & Type Note Facility 04-19-2024 Note HNO ID: [id number] Author: TIM PLAZA MD Service: ? Author Type: Physician Type: Progress Notes Filed: 04/19/2024 11:01 Note Text: Rheumatology Outpatient Clinic Date of Service: 04/19/2024 Patient: Stacie Davidson Medical Record: [id number] Primary Care Physician: Marry Mariaa Aichholz, SALES REPRESENTATIVE [employer] INSURANCE, SALES REPRESENTATIVE [employer]URANCE Referring Provider: Marry Schroeder, ALVIN ([facility]) [address] [place] [address] Last Rheumatology visit: 01/15/2024 (with Tim Plaza) [...] low back pain (more content not included)... [facility] 04-19-2024 History of Present illness Narrative Images from the original note were not included. Rheumatology Outpatient Clinic Date of Service: 04/19/2024 Patient: Stacie Davidson Medical Record: [id number] Primary Care Physician: Marry Schroeder CNP, ALVIN Referring Provider: Marry Schroeder CNP ([facility]) [address] [facility] [address] Last Rheumatology visit: 01/15/2024 (with Tim Plaza) [...] AI <0.2 Sm Antibody Negative Negative Ribosomal ACCIDENT EXAMINER Ab <1.0 AI <0.2 Ribosomal ACCIDENT EXAMINER Qualitative Negative Negative Chromatin Ab <1.0 AI <0.2 Chromatin Ab Qual Negative Negative SSA Antibody Qual Negative Negative Anti-SSA <1.0 AI 0.3 Anti-SSB <1.0 AI <0.2 ACCIDENT EXAMINER Antibody QUAL Negative Negative Scleroderma Ab Qual [...] 1. Mild degenerative arthrosis of both hands. Management Trainer: CLARY Transcribe Date/Time: Jan 06 2024 12:18P ... Last MRI Hand - Impression Only No resulted procedures found. Last XR Chest - Impression Only No resulted procedures found. Last XR Cervical Spine - Impression Only XR CERV OTHER 4V AP/LAT/OBL Exam End: 01/06/2024 11:04 AM (Final result) Impression: IMPRESSION: 1. Mild cervical spondylosis. 2. Cervical spine degenerative facet arthrosis. Management Trainer: CLARY Transcribe Date/Time: Jan 06 2024 12:16P... Health Maintenance Current Immunizations Never Reviewed Name Date COVID-19 vaccine, monovalent (Mashed jobs) 12/29/2020, 12/08/2020 Physical Exam VITAL SIGNS: BP [...] which included preparing to see the patient, [id number] patient care, completing clinical documentation, obtaining and/or reviewing separately obtained history, performing a medically appropriate examination, counseling and educating the patient/family/caregiver, and ordering medications, tests, or procedures. This note was partially generated with the assistance of [employer] voice recognition software. An attempt was made to correct any dictation errors however there may be some incorrect words, spellings, and punctuation. ___ Tim Plaza MD, MSUS Rheumatology documented in this encounter [facility] 03-23-2024 History of Present illness Narrative Stacie Davidson is a 53 y.o. 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 She is postmenopausal. Hysterectomy: no She is sexually active. States painful intercourse but uses astrogluide or pelvic pain. 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 All questions answered. RTO for annual pipe machine operator exam and / or PRN. BLAYNE Seay APRN-CNP 03/23/24 1005 documented in this encounter [facility] [employer] [facility] 01-15-2024 Note HNO ID: [id number] Author: TIM PLAZA MD Service: ? Author Type: Physician Type: Progress Notes Filed: 01/15/2024 09:34 Note Text: Rheumatology Outpatient Clinic Date of Service: 01/15/2024 Patient: Stacie Davidson Medical Record: [id number] Primary Care Physician: Marry Schroeder CNP, CNP Referring Provider: Marry Schroeder CNP ([facility]) [address] [facility] [address] Last Rheumatology visit: 01/06/2024 (with Tim Plaza) Chief complaint: Follow Up The patient's identity and physical location were verified at the time of this visit. Either the patient or their legal patient service representative has been informed of the risks [...] swelling GENITOURINARY: HEMATOL (more content not included)... [facility] 01-15-2024 History of Present illness Narrative Images from the original note were not included. Rheumatology Outpatient Clinic Date of Service: 01/15/2024 Patient: Stacie Davidson Medical Record: [id number] Primary Care Physician: Marry Schroeder CNP, SALES REPRESENTATIVE HEALTH INSURANCE Referring Provider: Marry Schroeder CNP ([facility]) [address] [place] [address] Last Rheumatology visit: 01/06/2024 (with Tim Plaza) Chief complaint: Follow Up The patient's identity and physical location were verified at the time of this visit. Either the patient or their legal patient service representative has been informed of the risks and benefits of virtual/phone visit and alternative treatment through a remote evaluation and consents to proceed with the evaluation remotely. History of Present Illness Stcaie Davidson is a 53 year old female [...] AI <0.2 Sm Antibody Negative Negative Ribosomal ACCIDENT EXAMINER Ab <1.0 AI <0.2 Ribosomal ACCIDENT EXAMINER Qualitative Negative Negative Chromatin Ab <1.0 AI <0.2 Chromatin Ab Qual Negative Negative SSA Antibody Qual Negative Negative Anti-SSA <1.0 AI 0.3 Anti-SSB <1.0 AI <0.2 ACCIDENT EXAMINER Antibody QUAL Negative Negative Scleroderma Ab Qual [...] 1. Mild degenerative arthrosis of both hands. Management Trainer: CLARY Transcribe Date/Time: Jan 06 2024 12:18P ... Last MRI Hand - Impression Only No resulted procedures found. Last XR Chest - Impression Only No resulted procedures found. Last XR Cervical Spine - Impression Only XR CERV OTHER 4V AP/LAT/OBL Exam End: 01/06/2024 11:04 AM (Final result) Impression: IMPRESSION: 1. Mild cervical spondylosis. 2. Cervical spine degenerative facet arthrosis. Management Trainer: CLARY Transcribe Date/Time: Jan 06 2024 12:16P... Health Maintenance Current Immunizations Never Reviewed Name Date COVID-19 vaccine, monovalent (Mashed jobs) 12/29/2020 , 12/08/2020 Physical Exam Phone visit [...] screening Defer to PCP Orders this visit: [facility] on 01/15/24 celecoxib (CELEBREX) 100 mg capsule Return in about 3 months (around 04/16/2024). I spent a total of 25 minutes on the date of the service This note was partially generated with the assistance of [employer] voice recognition software. An attempt was made to correct any dictation errors however there may be some incorrect words, spellings, and punctuation. ___ Tim Plaza MD, MSUS Rheumatology documented in this encounter [facility] 01-06-2024 Instructions Tim Plaza MD - [...] of screen time documented in this encounter [facility] 01-06-2024 Note HNO ID: [id number] Author: YAMIL JUÁREZ RT(R) Service: ? Author [...] PATIENT PRESENTS WITH AN IMPLANTABLE OR ATTACHED MOPHEAD SEWER: No RADIOLOGY DEPARTMENT: General X-ray: Exam(s) Completed: [...] RT Shola(R) January 06, 2024 10:59 AM [facility] 01-06-2024 History of Present illness Narrative Radiology [...] PATIENT PRESENTS WITH AN IMPLANTABLE OR ATTACHED MOPHEAD SEWER: No RADIOLOGY DEPARTMENT: General X-ray: Exam(s) Completed: [...] 2024 10:59 AM documented in this encounter [facility] 01-06-2024 History of Present illness Narrative Images from the original note were not included. Rheumatology Outpatient Clinic Date of Service: 01/06/2024 Patient: Stacie Davidson Medical Record: [id number] Primary Care Physician: Marry Schroeder CNP, CNP Referring Provider: Marry Schroeder CNP ([facility]) [address] [place] [address] Last Rheumatology visit: None at [facility] Chief complaint: Consult (Pos alondra test. [...] Never Reviewed Name Date COVID-19 vaccine, monovalent (Mashed jobs) 12/29/2020 , 12/08/2020 Physical Exam VITAL SIGNS: [...] Full ROM in flexion and extension. Full sample mounter strength. No swelling or synovitis along the [...] which included preparing to see the patient, [id number] patient care, completing clinical documentation, obtaining and/or reviewing separately obtained history, performing a medically appropriate examination, counseling and educating the patient/family/caregiver, and ordering medications, tests, or procedures. This note was partially generated with the assistance of [employer] voice recognition software. An attempt was made to correct any dictation errors however there may be some incorrect words, spellings, and punctuation. ___ Tim Plaza MD, [facility] Rheumatology documented in this encounter [facility] 01-06-2024 Note HNO ID: [id number] Author: TIM PLAZA MD Service: ? Author Type: Physician Type: Progress Notes Filed: 01/06/2024 11:17 Note Text: Rheumatology Outpatient Clinic Date of Service: 01/06/2024 Patient: Stacie Davidson Medical Record: [id number] Primary Care Physician: Marry Schroeder CNP, CNP Referring Provider: Marry Schroeder CNP ([facility]) [address] [facility] [address] Last Rheumatology visit: None at [facility] Chief complaint: Consult (Pos alondra test. [...] Inhale by nebuli (more content not included)... [facility] 10-14-2023 Miscellaneous Notes Fit for work letter was typed out and faxed over to [facility]. Talked to patient and she said that is what they needed. Marilynn Romero MA Called again about letter Called and left a voicemail for her to let us know if she needs just a letter from office fit for duty or if there is a form that [employer] has that needs to be filled out then it needs to be faxed over. Marilynn Romero MA Patient called again, requesting a letter stating that she is fit for duty for her job to be faxed. Attn: [employer] disability. Fax number [phone]. Any questions please call patient at [phone], she can't go back to work until they receive something. Thank you! documented in this encounter [facility] 10-05-2023 Miscellaneous Notes There was not return to work fitness form in the packet. I faxed over the forms to [employer] on 09/30/23. I left a vm on patients phone to let her know and that I can't upload them to her [employer] because she does not have one set up. Marilynn Romero MA Patient called needing a return to work fitness form. Any questions she can be reached at [phone] The form should be sent to [employer], . Please also my chart her a copy. Thank You! documented in this encounter [facility] 09-30-2023 Miscellaneous Notes Employer Forms for Patient/Caregiver Time Off of Work Completed, signed by provider, and returned to below contact. Completed copy scanned in [employer] Date of Surgery: 09/16/23 Estimated RTW date: 10/19/23 Employer: [employer]. Faxed to the [employer] Disability Date sent to employer: 09/30/23 Received fax confirmation: YES Received FMLA/STD paperwork on 09/23/23 Pending physician signature and completion. Surgeon: Dr. Hart Date of Surgery (if known): 09/16/23 documented in this encounter [facility] 09-30-2023 History of Present illness Narrative [...] restrictions. Paperwork completed Follow up: LISA Blanco APRN.SALES REPRESENTATIVE HEALTH INSURANCE documented in this encounter [facility] 09-30-2023 Note HNO ID: [id number] Author: MEREDITH BLANCO APRN.SALES REPRESENTATIVE [employer] INSURANCE Service: ? Author Type: Nurse Practitioner Type: [...] Paperwork completed Follow up: LISA Blanco APRN.ALVIN [facility] 09-30-2023 Nurse Note What is the reason for your visit today? Post op follow up Lap cholecystectomy 09/16/23 Who is your referring physician? Dr Hutchins Are you having poor oral intake? NO Have you had unintentional weight loss of 15 lbs/7 Kg in the last 3-6 months? NO Bowels: regular Wound: clean & dry Temperature: No Drains: No documented in this encounter [facility] 09-16-2023 Note HNO ID: [id number] Author: JORDY DASILVA DO Service: Anesthesiology Author Type: Resident Type: Anesthesia Procedure Notes Filed: 09/16/2023 08:08 Note Text: Attestation signed by Jordy Dasilva DO at 09/16/2023 8:08 AM I saw and evaluated the patient. Discussed with the WAXER OPERATOR/AA/resident and agree with findings and plan as [...] September 16, 2023 TIME: 8:04 AM CSN: [id number] [facility] 09-16-2023 Note HNO ID: [id number] Author: JORDY DASILVA DO Service: Anesthesiology Author Type: Resident Type: Anesthesia Procedure Notes Filed: 09/16/2023 08:08 Note Text: Attestation signed by Jordy Dasilva DO at 09/16/2023 8:08 AM I saw and evaluated the patient. Discussed with the WAXER OPERATOR/AA/resident and agree with findings and plan as documented in the note. Jordy Dasilva DO September 16, 2023 8:08 AM ANESTHESIOLOGY PROCEDURE NOTE Airway General Information Procedure Start Time/Medication Administration: 09/16/2023 7:44 AM Patient location during procedure: OR Timeout Performed Pre-procedure: timeout performed Consent Obtained: Yes Patient identity confirmed: leobardo sotomayor, care forensics team director and patient sedated or unresponsive Staffing Anesthesiologist: [...] September 16, 2023 TIME: 8:02 AM CSN: [id number] [facility] 09-09-2023 History of Past i llness Narrative Problem Noted Date Diagnosed Date Resolved Date MARKY (obstructive sleep apnea) 09/09/2023 09/10/2023 documented as of this encounter (statuses as of 10/01/2023) [facility] History of Past illness Narrative* Problem Noted Date Diagnosed Date Resolved Date MARKY (obstructive sleep apnea) 09/09/2023 09/10/2023 documented as of this encounter (statuses as of 10/01/2023) [facility]01-17-2024 History of Past illness Narrative* Problem Noted Date Diagnosed Date Resolved Date MARKY (obstructive sleep apnea) 09/09/2023 09/10/2023 documented as of this encounter (statuses as of 10/06/2023) [facility] History of Past illness Narrative* Problem Noted Date Diagnosed Date Resolved Date MARKY (obstructive sleep apnea) 09/09/2023 09/10/2023 documented as of this encounter (statuses as of 10/14/2023) [facility]01-12-2024 NoteHNO ID: [id number] Author: UTE HART MD Service: ? Author [...] [facility] She subsequently underwent imaging that [...] is quite healthy. She works at the [employer], no heavy lifting involved. She does not [...] of acute right upper [facility] She subsequently underwent imaging that [...] is quite healthy. She works at the [employer], no heavy lifting involved. She does not [...] Schedule for cholecystectomy Risk (more content not included)...[facility]12-29-2023 History of Present illness Narrative* Alem Hernandez [...] 2023 TIME: 9:48 AM [facility] NoteHNO ID: [id number] Author: Val Hucthins RN Service: ? Author Type: Registered Nurse [...] Davidson DATE: August 21, 2023 TIME: 9:48 [facility]12-29-2023 NoteHNO ID: [id number] Author: Alem Hernandez RT(R) Service: ? Author [...] Alem Hernandez RT(R) August 21, 2023 9:39 [facility]12-12-2023 Miscellaneous Notes* Telephone Encounter - [facility] [...] AM EST Referral received and scanned into [facility]. Reason for referral hepatic hemangioma, RUQ pain and cholelithiasis [place] [address]-30-2023 NoteChief Complaint consultation for RUQ pain HPI Staff 53 year old female presents on consultation from [facility] for complaint of RUQ pain. [place] [...] asthma, gastric ulcers, depression, fibromyalgia, referred from [facility] ED for abd pain and cholelithiasis; patient [...] will send records; call with problems/questions. Ordered: [facility] External Ambulatory Referral 2. Right upper quadrant abdominal pain (R10.11: Right upper quadrant pain) see # 1 Ordered: [facility] External Ambulatory Referral 3. Cholelithiasis (K80.20: Calculus of gallbladder without cholecystitis without obstruction) see # 1 Ordered: [facility] External Ambulatory Referral 4. BMI 31.0-31.9,adult (Z68.31: Body mass index [BMI] 31.0-31.9, adult) recommend low fat diet and exercise Follow-up No qualifying data available Problem List/Past Medical History Ongoing Asthma BMI 31.0-31.9,adult Cholelithiasis Depression Fibromyalgia Hepatic hemangioma History of gastric ulcer Obesity Right upper quadrant abdominal pain Hi (more content not included)...[facility] Result Comment: Electronically Signed By: CUONG ARGUETA, Roxann Colunga\Date and Time Signed: 07/23/23 17:10 [id number] Evaluation note* Encounter Date Diagnosis Assessment Notes [...] understanding and is agreeable to treatment plan. [employer] Other 10-08-2023 Evaluation note* Encounter Date Diagnosis [...] fever. Patient verbalized understanding of treatment plan. [facility] Other Evaluation + Plan noteNick-R [facility] [place] Evaluation noteNo InformationNortAmerican [facility] Other Evaluation noteNo assessment information available [facility] Work Phone: Evaluation note* Diagnosis Calculus of gallbladder without cholecystitis without obstruction- Primary Calculus of gallbladder without mention of cholecystitis or obstruction Liver mass Unspecified disorder of liver [facility] Diagnosis S/P gastrointestinal surgery, follow-up exam- Primary Follow-up examination, following other surgery S/P laparoscopic cholecystectomy Other postprocedural status documented [facility] encounter [facility]* Diagnosis Onset Date Resolution Status Anemia due to blood loss acu te Antral ulcer acute Asthma acute Family history of Yvonne thyroiditis acute Family history of rheumatoid arthritis acute Fatigue acute Fibromyalgia acute GERD (gastroesophageal reflux disease) acute Hemangioma acute Multiple joint complaints ac [place] Screening for lipid disorders acute [facility] Work Phone: Evaluation note* Diagnosis Onset Date Resolution Status Anemia due to blood loss acu te Antral ulcer acute Asthma acute Family history of diabetes mellitus acute Family history of Yvonne thyroiditis acute Family history of rheumatoid arthritis acute Fatigue acute Fibromyalgia acute GERD (gastroesophageal reflux disease) acute Hemangioma acute Multiple joint complaints ac [place] Obesity (BMI 30.0-34.9) acut e Screening for colon cancer a cute Screening for lipid disorders acute Family history of diabetes mellitus acute Obesity (BMI 30.0-34.9) acut e [facility] Work Phone: Evaluation note* Diagnosis Polyarthralgia- Primary Pain in joint, multiple sites Positive ALONDRA (antinuclear antibody) Other and unspecified nonspecific immunological findings Chronic pain syndrome Dry mouth Disturbance of salivary secretion Polyarthralgia Pain in joint, multiple sites documented [facility] Diagnosis Polyarthralgia Pain in joint, multiple sites documented [facility]* Diagnosis Ds DNA antibody positive- Primary Other and unspecified nonspecific immunological findings Polyarthralgia Pain in joint, multiple sites Positive ALONDRA (antinuclear antibody) Other and unspecified nonspecific immunological findings Chronic pain syndrome [facility] Diagnosis Onset Date Resolution Status Family history of diabetes mellitus acute Obesity (BMI 30.0-34.9) acut e Anxiety acute Family history of diabetes mellitus acute Obesity (BMI 30.0-34.9) acut e Sleep disturbance acute Anxiety acute Family history of diabetes mellitus acute Obesity (BMI 30.0-34.9) acut e Sleep disturbance acute [facility] Work Phone: Evaluation note* Diagnosis Onset Date Resolution Status Family history of diabetes mellitus acute Obesity (BMI 30.0-34.9) acut e Anxiety acute Family history of diabetes mellitus acute Obesity (BMI 30.0-34.9) acut e Sleep disturbance acute Anxiety acute Family history of diabetes mellitus acute Obesity (BMI 30.0-34.9) acut e Sleep disturbance acute Seasonal allergies acute [facility] Work Phone: evaluation note* Diagnosis Onset Date Resolution Status Anxiety acute Family history of diabetes mellitus acute Obesity (BMI 30.0-34.9) acut e Sleep disturbance acute Anxiety acute Family history of diabetes mellitus acute Obesity (BMI 30.0-34.9) acut e Sleep disturbance acute Seasonal allergies acute Screening for colon cancer a cute UTI (urinary tract infection) acute [facility] Work Phone: evaluation note* Diagnosis Onset Date Resolution Status Anxiety acute Family history of diabetes mellitus acute Obesity (BMI 30.0-34.9) acut e Sleep disturbance acute Anxiety acute Family history of diabetes mellitus acute Obesity (BMI 30.0-34.9) acut e Sleep disturbance acute Seasonal allergies acute Family history of diabetes mellitus acute Obesity (BMI 30.0-34.9) acut e UTI (urinary tract infection) acute [facility] Work Phone: evaluation note* Diagnosis Onset Date Resolution Status Anxiety acute Family history of diabetes mellitus acute Obesity (BMI 30.0-34.9) acut e Sleep disturbance acute Seasonal allergies acute Family history of diabetes mellitus acute Obesity (BMI 30.0-34.9) acut e UTI (urinary tract infection) acute Lesion of lip acute Skin lesion acute [facility] Work Phone: Evaluation note* Diagnosis Pre-op [...] nonspecific immunological findings [facility] Diagnosis Calculus of gallbladder without cholecystitis without obstruction Calculus of gallbladder without mention of cholecystitis or obstruction Liver mass Unspecified disorder of liver [facility] Diagnosis Onset Date Resolution Status Family history of diabetes mellitus acute Lesion of lip acute Obesity (BMI 30.0-34.9) acut e Skin lesion acute Liver hemangioma acute [facility] Work Phone: Evaluation note* Diagnosis Onset Date Resolution Status Family history of diabetes mellitus acute Lesion of lip acute Obesity (BMI 30.0-34.9) acut e Skin lesion acute Anxiety acute Flank pain acute Liver hemangioma acute Seasonal allergies acute Sleep disturbance [facility] Work Phone: Evaluation note* Diagnosis Well woman exam with routine gynecological exam- Primary Routine gynecological examination Cervical smear, as part of routine gynecological examination Screening for malignant neoplasm of the cervix Standardized adult depression screening tool completed Screening for colon cancer Special screening for malignant neoplasms, colon documented in this encounter [facility] SystemHistory general Narrative - Reported* Type Description Date Medical History asthma Medical History acid reflux Medical History anxiety Medical History depression Surgical History No Surgical history information Hospitalization History [facility] 2 Hospitalization History blood transfusions and b leeding ulcers [employer] Other History general Narrative - Reported* Type Description Date Medical History asthma Medical History acid reflux Medical History anxiety Medical History depression Surgical History No know Surgical history Hospitalization History [facility] X 2 Hospitalization History blood transfusions and b leeding ulcers [employer] Other Hospital course Narrative No data available for this section [facility] General Surgery [facility] Discharge instructions No data available for this section [facility] Surgery [facility] Discharge instructionsAmbulatory Orders* Referral to Dermatology Time Frame: 04/04/24, Location: None [facility] Work Phone: Instructions* Attachments The following attachments cannot be sent through Care Everywhere. * Colon and rectal cancer screening (Nepali) * Genetic testing for breast, ovarian, prostate, and pancreatic cancer (Nepali) [facility] note No data available for this section [facility] Reason for referral (narrative) Referred by: Roxann HUTCHINS MD [facility] Relcxi for referral (narrative)* Diagnostic Procedure Only (Routine) - Closed Specialty Diagnoses / Procedures Referred By Contac t Referred To Contact XR IMAGING Diagnoses Polyarthralgia Procedures XR CERV OTHER 4V AP/LAT/OBL RADEX SPINE CERVICAL 4 OR 5 VIEWS Tim Plaza MD [address] [place] [address] Xr Imaging [place] [address] Referral ID Status Reason Start Date Expiration Date V isits Requested Visits Authorized [id number] Closed Auto-Generate d Referral 01/06/2024 02/04/2025 1 1 * Diagnostic Procedure Only (Routine) - Closed Specialty Diagnoses / Procedures Referred By Contac t Referred To Contact XR IMAGING Diagnoses Polyarthralgia Procedures XR KNEE GENERAL 4V AP BOTH/PA BOTH/LAT/MERC BILATERAL RADIOLOGIC EXAM KNEE COMPLETE 4/MORE VIEWS Tim Plaza MD [address] [place] [address] Xr [place] [facility] Referral ID Status Reason Start Date Expiration Date V isits Requested Visits Authorized [id number] Closed Auto-Generate d Referral 01/06/2024 02/04/2025 1 1 * Diagnostic Procedure Only (Routine) - Closed Specialty Diagnoses / Procedures Referred By Contac t Referred To Contact XR IMAGING Diagnoses Polyarthralgia Procedures XR HAND GENERAL 3V PA/LAT/OBL BILATERAL RADEX HAND MINIMUM 3 VIEWS Tim Plaza MD [address] [place] [phone] [place] [address] Referral ID Status Reason Start Date Expiration Date V isits Requested Visits Authorized [id number] Closed Auto-Generate d Referral 01/06/2024 02/04/2025 1 1 * Diagnostic Procedure Only (Routine) - Closed Specialty Diagnoses / Procedures Referred By Contac t Referred To Contact XR IMAGING Diagnoses Polyarthralgia Procedures XR FOOT GENERAL 3V AP/LAT/OBL BILATERAL RADEX FOOT COMPLETE MINIMUM 3 VIEWS Tim Plaza MD [address] [place] [phone] [place] [address] Referral ID Status Reason Start Date Expiration Date V isits Requested Visits Authorized [id number] Closed Auto-Generate d Referral 01/06/2024 02/04/2025 1 1 * Diagnostic Procedure Only (Routine) - Closed Specialty Diagnoses / Procedures Referred By Contac t Referred To Contact XR IMAGING Diagnoses Polyarthralgia Procedures XR SACROILIAC JOINTS 2V AP PELVIS/FERGUESON RADIOLOGIC EXAMINATION SACROILIAC JNTS <3 VIEWS Tim Plaza MD [address] [place] [phone] [place] [address] Referral ID Status Reason Start Date Expiration Date V isits Requested Visits Authorized [id number] Closed Auto-Generate d Referral 01/06/2024 02/04/2025 1 1 * Diagnostic Procedure Only (Routine) - Closed Specialty Diagnoses / Procedures Referred By Contac t Referred To Contact XR IMAGING Diagnoses Polyarthralgia Procedures XR LUMBAR GENERAL 3V AP/LAT/L5-S1 RADEX SPINE LUMBOSACRAL 2/3 VIEWS Tim Plaza MD [address] [place] [phone] Xr Imaging [place] [address] Referral ID Status Reason Start Date Expiration Date V isits Requested Visits Authorized [id number] Closed Auto-Generate d Referral 01/06/2024 02/04/2025 1 1 [facility] for referral (narrative)* Diagnostic Procedure Only (Routine) - Closed Specialty Diagnoses / Procedures Referred By Contac t Referred To Contact XR IMAGING Diagnoses Polyarthralgia Procedures XR CERV OTHER 4V AP/LAT/OBL RADEX SPINE CERVICAL 4 OR 5 VIEWS Tim Plaza MD [address] [place] [address] Xr Imaging [place] [address] Referral ID Status Reason Start Date Expiration Date V isits Requested Visits Authorized [id number] Closed Auto-Generate d Referral 01/06/2024 02/04/2025 1 1 * Diagnostic Procedure Only (Routine) - Closed Specialty Diagnoses / Procedures Referred By Contac t Referred To Contact XR IMAGING Diagnoses Polyarthralgia Procedures XR KNEE GENERAL 4V AP BOTH/PA BOTH/LAT/MERC BILATERAL RADIOLOGIC EXAM KNEE COMPLETE 4/MORE VIEWS Tim Plaza MD [address] [place] [address] [place] [address] Referral ID Status Reason Start Date Expiration Date V isits Requested Visits Authorized [id number] Closed Auto-Generate d Referral 01/06/2024 02/04/2025 1 1 * Diagnostic Procedure Only (Routine) - Closed Specialty Diagnoses / Procedures Referred By Contac t Referred To Contact XR IMAGING Diagnoses Polyarthralgia Procedures XR HAND GENERAL 3V PA/LAT/OBL BILATERAL RADEX HAND MINIMUM 3 VIEWS Tim Plaza MD [address] [place] [phone] Xr Imaging [id number] Referral ID Status Reason Start Date Expiration Date V isits Requested Visits Authorized [id number] Closed Auto-Generate d Referral 01/06/2024 02/04/2025 1 1 * Diagnostic Procedure Only (Routine) - Closed Specialty Diagnoses / Procedures [facility] Referred To Contact XR IMAGING Diagnoses Polyarthralgia Procedures XR FOOT GENERAL 3V AP/LAT/OBL BILATERAL RADEX FOOT COMPLETE MINIMUM 3 VIEWS Tim Plaza MD [address] [place] [address] Xr Imaging [place] [address] Referral ID Status Reason Start Date Expiration Date V isits Requested Visits Authorized [id number] Closed Auto-Generate d Referral 01/06/2024 02/04/2025 1 1 * Diagnostic Procedure Only (Routine) - Closed Specialty Diagnoses / Procedures [facility] Referred To Contact XR IMAGING Diagnoses Polyarthralgia Procedures XR SACROILIAC JOINTS 2V AP PELVIS/FERGUESON RADIOLOGIC EXAMINATION SACROILIAC JNTS <3 VIEWS Tim Plaza MD [address] [place] [phone] Xr Imaging [id number] Referral ID Status Reason Start Date Expiration Date V isits Requested Visits Authorized [id number] Closed Auto-Generate d Referral 01/06/2024 02/04/2025 1 1 * Diagnostic Procedure Only (Routine) - Closed Specialty Diagnoses / Procedures [facility] Referred To Contact XR IMAGING Diagnoses Polyarthralgia Procedures XR LUMBAR GENERAL 3V AP/LAT/L5-S1 RADEX SPINE LUMBOSACRAL 2/3 VIEWS Tim Plaza MD [address] [place] [phone] Xr Imaging [id number] Referral ID Status Reason Start Date Expiration Date V isits Requested Visits Authorized [id number] Closed Auto-Generate d Referral 01/06/2024 02/04/2025 1 1 [facility] for visit Narrative* Diagnostic Procedure Only (Routine) - Closed Specialty Diagnoses / Procedures Referred By Julianne quezada Referred To Contact XR IMAGING Diagnoses Polyarthralgia Procedures XR CERV OTHER 4V AP/LAT/OBL RADEX SPINE CERVICAL 4 OR 5 VIEWS Tim Plaza MD [address] [place] [address] Xr Imaging [place] [address] Referral ID Status Reason Start Date Expiration Date V isits Requested Visits Authorized [id number] Closed Auto-Generate d Referral 01/06/2024 02/04/2025 1 1 [facility] Summary Purpose Family History Relationship Condition [...] W IVCON CT ABDOMEN W/CONTRAST 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, 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.[employer] RE[employer] [address] [place] [address] [place] [address] Referral ID Status Reason Start Date Expiration Date Visits Requested Visits Authorized [id number] Authorized Auto-Generat ed Referral 3 08/23/2023 1 [...] DATE CREATED AUTHOR AUTHOR'S ORGANIZ ATION 09/20/2023 [facility] DATE CREATED AUTHOR AUTHOR'S ORGANIZ ATION 09/29/2023 [facility] DATE CREATED AUTHOR AUTHOR'S ORGANIZ ATION 03/25/2024 [facility] DATE CREATED AUTHOR AUTHOR'S ORGANIZ ATION 04/01/2024 [facility] DATE CREATED AUTHOR AUTHOR'S ORGANIZ ATION 04/20/2024 [facility] DATE CREATED AUTHOR AUTHOR'S ORGANIZ ATION 07/01/2024 [facility] REASON FOR VISIT (unrecogniz ed [...] W IVCON CT ABDOMEN W/CONTRAST 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 APRN.[employer] [address] [place] [address] [place] [address] Referral ID Status Reason Start Date Expiration Date V isits Requested Visits Authorized [id number] Closed Auto-Generate d Referral 08/05/2023 08/23/2023 1 1 Reason Comments Gynecologic Exam Pt is here for feliciano anderson exam. Care Teams (unrecognized sec tion and content) Team Status: Active Member Role Status Dates Nadege Aly DNP Primary Care Provider Active Team Status: Inactive Member Role Status Dates Nadege Aly DNP Primary Care Provider Active Dayanara Thompson APRN Attending Provider Active Dining Room Maid Relationship Specialty Start Date End Date [facility] [address] [place] [address] PCP - General Family Medicine 09/09/23 Dining Room Maid Relationship Specialty Start Date End Date [facility] [address] [place] [address] PCP - General Family Medicine 09/09/23 Dining Room Maid Relationship Specialty Start Date End Date [facility] [address] [place] [address] PCP - General Family Medicine 09/09/23 Team Status: Active Member Role Status Dates Nadege Lawson APRN ENGAGEMENT SPECIALIST-C Primary Care Provider Active Team Status: Inactive Member Role Status Dates Nadege Lawson APRN ENGAGEMENT SPECIALIST-C Primary Care Provider, Attending Provider Active Start: October 13, 2023 End: October 13, 2023 Team Status: Active Member Role Status Dates Nadege Lawson APRN ENGAGEMENT SPECIALIST-C Primary Care Provider, Attending Provider Active Start: October 16, 2023 Team Status: Inactive Member Role Status Dates Nadege Lawson APRN ENGAGEMENT SPECIALIST-C Primary Care Provider, Attending Provider Active Start: November 10, 2023 End: November 10, 2023 Team Status: Inactive Member Role Status Dates Nadege Lawson APRN ENGAGEMENT SPECIALIST-C Primary Care Provider, Attending Provider Active Start: December 15, 2023 End: December 15, 2023 Dining Room Maid Relationship Specialty Start Date End Date Nadege Lawson NP [address] [place] [address] PCP - General Nurse Practitioner 01/06/24 Nadege Lawson NP [address] [place] [address] Referring Nurse Practitioner 10/22/23 Dining Room Maid Relationship Specialty Start Date End Date Nadege Lawson NP [address] [place] [address] PCP - General Nurse Practitioner 01/06/24 Nadege Lawson NP [address] [place] [address] Referring Nurse Practitioner 10/22/23 Dining Room Maid Relationship Specialty Start Date End Date Nadege Lawson NP [address] [place] [address] PCP - General Nurse Practitioner 01/06/24 Nadege Lawson NP [address] [facility] [place] [address] Referring Nurse Practitioner 10/22/23 Dining Room Maid Relationship Specialty Start Date End Date Nadege Lawson NP [address] [place] [address] PCP - General Nurse Practitioner 01/06/24 Nadege Lawson NP [address] [facility] [place] [address] Referring Nurse Practitioner 10/22/23 Team Status: Active Member Role Status Dates Nadege Lawson APRN ENGAGEMENT SPECIALIST-C Primary Care Provider Active Start: December 23, 2023 Nadege Fregoso LPN Attending Provider Active Start: December 23, 2023 Team Status: Active Member Role Status Dates Nadege Lawson APRN ENGAGEMENT SPECIALIST-C Primary Care Provider, Attending Provider Active Start: January 06, 2024 Team Status: Inactive Member Role Status Dates Nadege Lawson APRN ENGAGEMENT SPECIALIST-C Primary Care Provider, Attending Provider Active Start: January 12, 2024 End: January 12, 2024 Team Status: Inactive Member Role Status Dates Nadege Lawson APRN ENGAGEMENT SPECIALIST-C Primary Care Provider, Attending Provider Active Start: January 27, 2024 End: January 27, 2024 Team Status: Inactive Member Role Status Dates Nadege Lawson APRN ENGAGEMENT SPECIALIST-C Primary Care Provider, Attending Provider Active Start: March 07, 2024 End: March 07, 2024 Team Status: Inactive Member Role Status Dates Nadege Lawson APRN ENGAGEMENT SPECIALIST-C Primary Care Provider, Attending Provider Active Start: April 04, 2024 End: April 04, 2024 Dining Room Maid Relationship Specialty Start Date End Date Nadege Lawson NP [address] [place] [address] PCP - General Nurse Practitioner 01/06/24 Nadege Lawson NP [address] [facility] [place] [address] Referring Nurse Practitioner 10/22/23 Team Status: Active Member Role Status Dates Nadege Rangeljazmargarita LAUREN ENGAGEMENT SPECIALIST-C Primary Care Provider, Attending Provider Active Start: April 19, 2024 Team Status: Inactive Member Role Status Dates Nadege Rangeljazmargarita LAUREN ENGAGEMENT SPECIALIST-C Primary Care Provider, Attending Provider Active Start: June 21, 2024 End: June 21, 2024 Team Status: Inactive Member Role Status Dates Nadege Rangeljazmargarita LAUREN ENGAGEMENT SPECIALIST-C Attending Provider Act erik Start: June 21, [...] or prosecute any alcohol or drug abuse patient.[facility] the event this information is protected by the Federal Confidentiality of Alcohol and Drug Abuse Patient Records regulations: The Federal rules restrict any use of the information to criminally investigate or prosecute any alcohol or drug abuse patient.[facility] the event this information is protected by the Federal Confidentiality of Alcohol and Drug Abuse Patient Records regulations: The Federal rules restrict any use of the information to criminally investigate or prosecute any alcohol or drug abuse patient.[facility] the event this information is protected by the Federal Confidentiality of Alcohol and Drug Abuse Patient Records regulations: The Federal rules restrict any use of the information to criminally investigate or prosecute any alcohol or drug abuse patient.[facility] the event this information is protected by the Federal Confidentiality of Alcohol and Drug Abuse Patient Records regulations: The Federal rules restrict any use of the information to criminally investigate or prosecute any alcohol or drug abuse patient.[facility] HospitalIn the event this information is protected by the Federal Confidentiality of Alcohol and Drug Abuse Patient Records regulations: The Federal rules restrict any use of the information to criminally investigate or prosecute any alcohol or drug abuse patient.[facility] HospitalIn the event this information is protected by the Federal Confidentiality of Alcohol and Drug Abuse Patient Records regulations: The Federal rules restrict any use of the information to criminally investigate or prosecute any alcohol or drug abuse patient.[facility] HospitalIn the event this information is protected by the Federal Confidentiality of Alcohol and Drug Abuse Patient Records regulations: The Federal rules restrict any use of the information to criminally investigate or prosecute any alcohol or drug abuse patient.[facility] HospitalIn the event this information is protected by the Federal Confidentiality of Alcohol and Drug Abuse Patient Records regulations: The Federal rules restrict any use of the information to criminally investigate or prosecute any alcohol or drug abuse patient.[facility] HospitalIn the event this information is protected by the Federal Confidentiality of Alcohol and Drug Abuse Patient Records regulations: The Federal rules restrict any use of the information to criminally investigate or prosecute any alcohol or drug abuse patient.[facility] HospitalIn the event this information is protected by the Federal Confidentiality of Alcohol and Drug Abuse Patient Records regulations: The Federal rules restrict any use of the information to criminally investigate or prosecute any alcohol or drug abuse patient.[facility] FOR RECORDS PERTAINING TO PATIENTS WHO [...] BE BASED ON THE PRIMARY CLINICAL RECORDS. [facility] Doctor kinetic [facility]. provides no warranty or guarantee of the accuracy or completeness of information in this document.
== END 2024-10-17 07:59 | disposition home or self-care (01) ==
LOC: MAMMO 07:58
PROVIDERS: PCP Nurse Practitioner Family; Visit Provider Nurse Practitioner Family
DX: Z12.31 Encounter for screening mammogram for malignant neoplasm of breast (principal); Z80.3 Family history of malignant neoplasm of breast; Z80.8 Family history of malignant neoplasm of other organs or systems
CPT/HCPCS: 77063; 77067

== ENCOUNTER 2025-01-26 10:21 | Outpatient (OUT) | payer BC, SELFPAY ==
[2025-01-26 11:13] LABS: Basophils Absolute Auto 0.1 10^3/uL (0.0-0.1); Basophils Percent Auto 1.1 % (0.2-2.0); Eosinophils Absolute Auto 0.1 10^3/uL (0.0-0.7); Eosinophils Percent Auto 1.7 % (0.9-7.0); Estimated Average Glucose 111 mg/dL; Glycohemoglobin A1C 5.5 % (4.5-6.2); Hematocrit 41.6 % (36.0-48.0); Hemoglobin 13.9 g/dL (12.0-16.0); Immature Granulocytes Abs Auto 0.01 10^3/uL (0.00-0.03); Immature Granulocytes Pct Auto 0.2 % (0.0-0.5); Lymphocytes Absolute Auto 1.6 10^3/uL (1.2-3.8); Lymphocytes Percent Auto 29.9 % (20.5-60.0); Mean Corpuscular HGB Conc 33.4 g/dL (29.9-35.2); Mean Corpuscular Hemoglobin 31.2 pg (26.7-34.0); Mean Corpuscular Volume 93.3 fL (81.0-99.0); Mean Platelet Volume 10.2 fL (9.5-13.5); Monocytes Absolute Auto 0.5 10^3/uL (0.3-0.8); Monocytes Percent Auto 9.3 % (1.7-12.0); Neutrophils Absolute Auto 3.1 10^3/uL (1.4-6.5); Neutrophils Percent Auto 57.8 % (43.0-75.0); Platelet Count 308 10^3/uL (150-450); Red Blood Count 4.46 10^6/uL (4.20-5.40); Red Cell Distribution Width 11.9 % (11.0-15.0); White Blood Count 5.3 10^3/uL (4.0-11.0)
[2025-01-26 11:32] LABS: Alanine Aminotransferase 34 U/L (14-59); Alkaline Phosphatase 82 U/L (46-116); Anion Gap 11.6; Aspartate Amino Transferase 19 U/L (15-37); BUN Creatinine Ratio 17.1; Bilirubin Total 0.4 mg/dL (0.2-1.0); Calcium 9.6 mg/dL (8.5-10.1); Carbon Dioxide 30.3 mmol/L (21.0-32.0); Chloride 100 mmol/L (98-107); Chol HDL Ratio 2.1; Cholesterol 197 mg/dL (<=200); Estimated GFR (African America >60 (>=60 mL/min/1.73m^2); Estimated GFR (Non-African Ame >60 (>=60 mL/min/1.73m^2); Glucose 98 mg/dL (74-106); HDL Cholesterol 93 mg/dL (40-60); Potassium 3.9 mmol/L (3.5-5.1); Sodium 138 mmol/L (136-145); TSH W/ REFLEX FT4 1.175 uIU/mL (0.358-3.740); Triglycerides 59 mg/dL (<=150); VLDL CHOLESTEROL 11.8 mg/dL
== END 2025-01-26 10:22 | disposition home or self-care (01) ==
LOC: LAB 10:22
PROVIDERS: PCP Nurse Practitioner Family; Visit Provider Nurse Practitioner Family
DX: Z00.00 Encounter for general adult medical examination without abnormal findings (principal); Z83.3 Family history of diabetes mellitus; Z13.220 Encounter for screening for lipoid disorders; R53.83 Other fatigue; E55.9 Vitamin D deficiency, unspecified
CPT/HCPCS: 36415; 80053; 80061; 82306; 82728; 83036; 83540; 83550; 84443; 85025

== ENCOUNTER 2025-02-02 11:21 | Outpatient (REF) | payer BC, SELFPAY ==
--- OUTSIDE RECORDS SUMMARY | 2023-03-17 09:15 | XMS_ITS | Continuity of Care Document ---
Author Organization [facility] Address [address] [place] [address] Phone Care Team Providers Care Sales Support Technician Name Role Phone Pako WHCNP WHRAHCP, Barbara Garcia Unavaila ble Allergies, Adverse Reactions, Alerts Substance Reaction Status Criticality tetracycline Active No Information Medications Medication Instructions Dosage Effective Dates (start - stop) Status Comments Wellbutrin XL 150 mg 24 hr tablet, extended release take 1 tablet by oral route every day 150 MG - Active Celexa 40 mg tablet take 1 tablet by ora l route every day 40 MG - Active omeprazole 40 mg capsule,delayed release take 1 capsule by oral route every day before a meal 40 MG - Active Problems Condition Type Effective Dates (start - stop) Clini yeison Status Comments No Known Problems Procedures Procedure Date OFFICE/OUTPATIENT VISIT, EST OFFICE/OUTPATIENT VISIT, EST GLYCOSYLATED HEMOGLOBIN TEST OFFICE/OUTPATIENT VISIT, EST Methylprednisolone 80 MG inj Kenalog Injection 10mg BIOPSY OF UTERUS LINING OFFICE/OUTPATIENT VISIT, EST Donation PREV VISIT, EST, AGE 40-64 URINALYSIS NONAUTO W/O SCOPE ROUTINE VENIPUNCTURE BACTRIM DS 800 MG /160 MG (6TABLETS) Apr Donation OFFICE/OUTPATIENT VISIT, NEW Advance Directives Directive Yes / No Effective Date File Name No Information Encounters Encounter Description Practice Location Reason(s) For Visit Diagnoses Date Provider Providers Copied on Encounter [facility], [address] [place] [address], [id number] , [place] tel: [phone] [facility] No Information 3 [facility] Barbara. [address], [place], [id number] , [place]. tel: [phone] [facility], [address] [place] [address], [id number] , [place] tel: [phone] [facility] No Information 1 Lorenzo Deleon. [address] [place] [address], [id number] , [place]. tel: [phone] OFFICE/OUTPA TIENT VISIT, [facility], [address] [place] [address], [id number] , [place] tel: [phone] [facility] Dep Follow-up (chief complaint)de pression (chief complaint) Depression, unspecified depression type Nov- 1 Lorenzo Deleon. [address] [place] [address], [id number] , [place]. tel: [phone] [facility], [address] [place] [address], [id number] , [place] tel: [phone] [facility] NocturiaStress incontinence of urineUrinary frequency Nov-0 1 Lorenzo Deleon. [address] [place] [address], [id number] , [place]. tel: [phone] OFFICE/OUTPA TIENT VISIT, [facility], [address] [place] [address], [id number] , [place] tel: [phone] [facility] Follow-Up (chief complaint)Ur inary frequency (chief complaint)de pression (chief complaint) Urinary frequencyDepression , unspecified depression typeBody mass index [BMI] 37.0-37.9, adult Mar-3 1 Lorenzo Deleon. [address] [place] [address], [id number] , [place]. tel: [phone] OFFICE/OUTPA TIENT VISIT, [facility], [address], [place], [id number] , [place] tel: [phone] [facility] est care (chief complaint)he adache (chief complaint) Body mass index [BMI] 35.0-35.9, adultNonintractable episodic headache, unspecified headache type Nov- 0 Lorenzo Deleon. [address] [place] [address], [id number] , [place]. tel: [phone] [facility], [address] [place] [address], [id number] , [place] tel: [phone] [facility] Postmenopausal bleeding Sep- 0 [facility] Barbara. [address] [place] [address], [id number] , [place]. tel: [phone] OFFICE/OUTPA TIENT VISIT, [facility], [address] [place] [address], [id number] , [place] tel: [phone] [facility] Endometrial Biopsy (chief complaint) Body mass index [BMI] 34.0-34.9, adultPostmenopausal bleeding Sep- 0 Pako [facility] Barbara. [address] [place] [address], [id number] , [place]. 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 [address] [place] [address], [id number] , [place]. tel: [phone] OFFICE/OUTPA TIENT VISIT, NEW [facility], [address] [place] [address], [id number] , [place] tel: [phone] [facility] care (chief complaint) Body mass index (BMI) 33.0-33.9, adultScabies 0 Trell Fernandez. [address] [place] [address], [id number] , [place]. tel:[phone] Family History Family Member Type Diagnosis Age At Onset No Information Immunizations Vaccine Date Status Comments Flulaval/ Fluarix refused Source: Naila w Immunization Record Payers Payer name Insurance type Covered democrat ID Authorshaynaa burak(s) Self Pay Cap [id number] Self Pay Cap [id number] Social History Type Description Quantity Date Captured Comments Alcohol Use Details Unknown Caffeine Use Details Unknown Tobacco Use Status No Information Smoking Status No Information Sex Female Sexual Orientation Straight or heterosexual Gender Identity Female Chief Complaint And Reason For Visit No Information Reason For Referral Reason For Referral No Information Plan Of Treatment Date Type Action Status Goal Tdap. Due on due Goal Lipid panel. Due on 023 due Goal Colonoscopy. Due on 023 due Goal Influenza vaccine. Due on due Goal Zoster vaccine ( ). Due on due Goal Tdap Vaccine. Due on 2022 due Goal Depression scree jeremias. Due on due Goal PRAPARE ASSESSMENT. Due on due Goal FOBT. Due on due Goal Mammogram. Due on 2 due Goal Lifestyle education regardin g diet completed Goal Dietary manageme nt education, guidance, and counseling completed Goal Dietary manageme nt education, guidance, and counseling completed Goal Dietary manageme nt education, guidance, and counseling completed Goal Dietary manageme nt education, guidance, and counseling completed Referral Ordered: Referrals: Urology ordered Referral Ordered: US EXAM, PELVIC, COMPLETE Appointment date/timeframe: 05/30/2020 ordered Referral Ordered: MAMMOGRAM, SCREENING Appointment date/timeframe: 05/25/2020 ordered Future Order: Lab Order UA/M w/r flx Culture, Routine ([id number]), Collected on: , Sent on: Sent Future Order: Lab Order CBC With Differential/Platelet ([id number]), Collected on: , Sent on: Sent Future Order: Lab Order Comp. Me tabolic Panel (14) ([id number]), Collected on: , Sent on: Sent Future Order: Lab Order Choleste rol, Total ([id number]), Collected on: , Sent on: Sent Future Order: Lab Order HDL Chol esterol ([id number]), Collected on: , Sent on: Sent Future Order: Lab Order UA/M w/r flx Culture, Routine ([id number]), Collected on: , Sent on: Sent Future Order: Lab Order Vitamin D, 25-Hydroxy ([id number]), Collected on: , Sent on: Sent History Of Present Illness Encounter Date Complaint History Of Prese nt Illness Dep Follow-up Feeling good, mo od improved since last visit. No other issues.//El ASIF depression This is a follow up visit. Related symptoms are well controlled. There is improvement of initial symptoms. The patient reports functioning as not difficult at all. The patient does not present with anxious/fearful thoughts, depressed mood, difficulty falling asleep, difficulty staying asleep, diminished interest or pleasure, excessive worry, fatigue, restlessness or thoughts of or suicide. The patient's risk factors include history of depression. The depression is aggravated by conflict or stress. The patient's relieving factors are a good response to medication (wellbutrin). Additional information: Improved since starting Wellbutrin. 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 Crying more recently. Both parents have type 2 diabetes and patient is thirsty all the time and fatigued. Gained weight without changing eating habits and has polydipsia and also has recurrent diarrhea. 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 Patient reports no pain. It occurs daily. The problem is unchanged. Leakage is not caused by intercourse, standing, strenuous exercise, urgency or walking. Causes of the leakage include coughing, laughing, lifting and sneezing. Prolapse symptoms do not include dyspareunia, manual reduction/splinting needed or pelvic pressure. The patient does not report any of the following neurological symptoms: diabetes. Associated symptoms include urinary frequency (every 2 hours) and nocturia (3 times per night). Pertinent negatives include constipation, dysuria, fecal incontinence, fever, hematuria, urinary hesitancy, incomplete emptying, loss of vaginal sensation, pain, pelvic pain, slow stream, strain to urinate and urgency. 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 depression This is a follow up visit. There is worsening of previously reported symptoms. The patient reports functioning as somewhat difficult. The patient presents with depressed mood and fatigue but denies anxious/fearful thoughts, compulsive thoughts, difficulty concentrating, difficulty falling asleep, difficulty staying asleep, excessive worry, feelings of guilt, feelings of invulnerability, increased energy, loss of appetite, paranoia, racing thoughts or thoughts of or suicide. The depression is aggravated by conflict or stress, menopause and COVID19. The patient's relieving factors are a poor response to medication (celexa). The depression is associated with urinary frequency. The patient denies any chronic pain, headache, nausea and vomiting. Additional information: Feels Celexa no longer working well. 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 headache Onset: 3 Weeks. The severity of the problem is moderate. Pain scale: 2/10. The problem is improving. The symptoms are intermittent. Locations affected include left temporal. Headache timing includes no pattern. Symptoms are not associated with recent head trauma, recent MVA and stress. Symptoms are not aggravated by allergies, anxiety, bright lights, caffeine, exercise, head position, certain foods and noise. Symptoms are relieved by ice. Symptoms are not relieved by decongestants and OTC meds. Associated symptoms include phonophobia. Pertinent negatives include blurred vision, diplopia, dizziness, fever, hemianopsia left, hemianopsia right, loss of consciousness, memory impairment, nausea, photophobia, neck stiffness, visual aura, vertigo and vomiting. 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 est care Pt here today wi th complaint of headaches. Carlos Enrique Swann RN Endometrial Biopsy Patient is he re for EMBX. Has a history of irregular menses c/o 2 menses per month for the last 6 months. Does not currently have insurance, so sonogram was not completed. Is unable to take Motrin due to her history of bleeding ulcers. States understanding of EMBX procedure and has no questions. annual exam Last LMP was . Pertinent negatives include anxiety and depression. The patient does not use tobacco. She does drink alcohol. Additional information: Patient is here for annual exam. C/O 2 menses per month for the last 6 months. Menses last for 3-4 days with 1 heavy day. states she has hot flashes and vaginal dryness. C/O several small boils on her abdomen. Has been treated with Cipro. The boils improved, but then returned. 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 est care Pt here to estab janeen care and c/o rash on her lower abdomen and b/l groin area. Pt states the rash started about 4 months ago, she was treated at an Urgent Care in [place] around the same, the dx her with bed bug bites. Pt states that she had her house treated and the wire welder found no evidence of bug bites. Pt c/o larva like worms when she squeezes the rash or bumps. Pt c/o constant itching at night, she takes an OTC allergy pill but it only helps a little. Robyn Hung with above. Symptoms have come and gone for 4 mos. 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 She has looked up things online and has tried tea tree oil, Vaseline and Benadryl at night without relief. There is some redness, but she denies drainage, fever, or chills. States she has been able to pull out what she assumes is larva with tweezers. Edilberto Cai TRAY SETTER. Functional Status Date Functional Assessmen t No Information Instructions Date Instruction Additional Infor jaleel 1. Take medications as prescribed.2. Continue or consider counseling3. Exercise regularly4. practice good sleep hygiene.5. Use [facility] Hotline for any suicidal or homicidal ideations6 Follow up 6 months Related to Depression, unspecified depression type 1. Take medications as prescribed.Continue CelexaStart Wellbutrin XL2. Continue or consider counseling3. Exercise regularly4. practice good sleep hygiene.5. Use [facility] Hotline for any suicidal or homicidal ideations6 Follow up 1 month Related to Depression, unspecified depression type Lifestyle education regarding di et Related to Body mass index [BMI] 37.0-37.9, adult Giving encouragement to exercise Related to Body mass index [BMI] 37.0-37.9, adult 1. [id number] Storm alog 1 ml given in office2. Tylenol as needed3. zyrtec as needed4. keep headache log5. FU 2 weeks. Related to Nonintractable episodic headache, unspecified headache type Dietary management e ducation, guidance, and counseling Related to Body mass index [BMI] 35.0-35.9, adult Giving encouragement to exercise Related to Body mass index [BMI] 35.0-35.9, adult Attempted EMBX, but due to cervical stenosis was unable to obtain sample. Cervical os was dilated to 2cm then 4cm, but was unable to proceed with Pipelle due to patient discomfort and patient asked us to stop as she could not tolerate the discomfort. Patient appeared pale in color and a cold compress was applied to her forehead and back of neck. Patient rested on the table until cramping subsided and she was able to get dressed. Patient stayed in the office for approx 20min after the procedure to recover. Appt made with Dr. Mccollum for this Thursday for possible repeat attempt of EMBX. Rx for Cytotec was sent to her pharmacy. Encouraged her to take Tylenol 1 hour prior to procedure. Patient cannot take Motrin due to her history of bleeding ulcers. notified and agrees with above plan of care Related to Postmenopausal bleeding Giving encouragement to exercise Related to Body mass index [BMI] 34.0-34.9, adult Dietary management e ducation, guidance, and counseling Related to Body mass index [BMI] 34.0-34.9, adult Discussed irregular menses and menopausal symptoms in detail. FSH, TSH and Free T4 ordered and drawn today. Patient to RTC for EMBX Related to Irregular periods Several boils noted on abdomen and mons pubis. Rx for bactrim Ds 1 po BID for 10 days. If boils do not resolve then recommend follow up with dermatology. Wound culture obtained as a small head was noted on several of the boils Related to Boils Encouraged monthly B SE. Recommend calcium 1000mg QD. Encouraged good dietary intake and exercise. Laboratory specimens sent to lab. Patient to call in 2 weeks if desires results. 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
--- OUTSIDE RECORDS SUMMARY | 2025-02-02 11:26 | XMS_ITS | Encounter Summary ---
Author Organization [facility] Address [address] [place] [address] Care Team Providers Care Brick Maker Name Role Phone Alexandre Marry TOOL OPERATOR Unavailable [phone] Nadege Lawson TOOL OPERATOR Primary Care Provider Encounter Details Date Type Department Care Team (Late st Contact Info) Description 11/28/[address] [facility] [address] [facility] [address] [place] [id number] Jez Lyle DO [address] [facility] [address] [place] [address] Social History Tobacco Use Types Packs/Day Years Used Date Smoking Tobacco: Never Comments Unknown Sex and Gender Information Value Date Recorded Sex Assigned at Not on file Legal Sex Female 6:35 PM EDT Gender Identity Not on file Sexual Orientation Not on file documented as of this encounter Plan of Treatment Not on file documented as of this encounter Procedures Procedure Name Priority Date/Time Associated Diagnosis Comments US EXTREMITY NON VASCULAR RIGHT Routine 10/15/2024 2:35 PM EST MRI TIBIA FIBULA RIGHT W WO CONTRAST Routine 10/06/2024 2:38 PM EST documented in this encounter Results * US EXTREMITY NON VASCULAR RIGHT (10/15/2024 2:35 PM EST) Anatomical Region Laterality Modality Radiographic Gabby ging Jez Lyle DO IMG XR PROCEDURES Final Result * MRI TIBIA FIBULA RIGHT W WO CONTRAST (10/06/2024 2:38 PM EST) Anatomical Region Laterality Modality Radiographic Gabby ging Jez Lyle DO IMG XR PROCEDURES Final Result documented in this encounter Visit Diagnoses Not on filedocumented in this encounter Care Teams Brick Maker Relationship Specialty Start Date End Date Nadege Lawson NP [address] [place] [address] PCP - General Family Medicine 02/18/24 Marry Schroeder NP [address] [place] [address] Referring Physician Nurse Practitioner 03/06/23 documented as of this encounter
--- OUTSIDE RECORDS SUMMARY | 2025-02-02 11:26 | XMS_ITS | Encounter Summary ---
Author Organization [facility] Address [address] [place] [address] Care Team Providers Care [place] [facility] Demonstrator Name Role Phone Isaac Gardner MD Primary Care Provider [phone] Marry Schroeder NP Unavailable [phone] Nadege Lawson SENIOR CYTOGENETIC TECHNOLOGIST Primary Care Provider Ruchi Zhong [facility] Unavailable [phone] Encounter Details Date Type Department Care Team (Late st Contact Info) Description 09/10/2023 Clinisync Result Encounter [facility] External Department Unsolicited Provider, Generic External Data Social History Tobacco Use Types Packs/Day Years [...] Procedure Name Priority Date/Time Associated Diagnosis Comments ECG 12-LEAD 09/10/2023 4:23 PM EST documented in this encounter Results * ECG 12 lead (09/10/2023 4:23 PM EST) 09/10/2023 4:23 PM EST Narrative [facility] - 09/11/2023 7:14 AM EST Ventricular Rate : 67 BPM Atrial Rate : 67 BPM P-R Interval : 150 ms QRS Duration : 86 ms Q-T Interval : 414 ms QTC Calculation(Bazett) : 437 ms Calculated P Henri[place] : 58 degrees Calculated R Henri[place] : 38 degrees Calculated T [place] : 38 degrees NORMAL SINUS RHYTHM NORMAL ECG Confirmed by DIAZ MEJÍA MD ([id number]) on 09/11/2023 7:14:45 AM NAME : STACIE RODRÍGUEZ PID : [id number] : 1970 Gender : Female Race : ORD : [id number] Procedure Date : Sep 10 2023 16:23:01 Edit Date : Sep 11 2023 07:14:48 Diagnosis: NORMAL SINUS RHYTHM NORMAL ECG Confirmed by DIAZ MEJÍA MD ([id number]) on 09/11/2023 7:14:45 AM Test Reason : [facility] By : DIAZ MEJÍA MD Edited By : DIAZ MEJÍA MD Referred By : UTE MG Acquired by : PING, Procedure Note Radiology, Radiologist, MD - 09/11/2023 Ventricular Rate : 67 BPM Atrial Rate : 67 BPM P-R Interval : 150 ms QRS Duration : 86 ms Q-T Interval : 414 ms QTC Calculation(Bazett) : 437 ms Calculated P Henri[place] : 58 degrees Calculated R Henri[place] : 38 degrees Calculated T Henri[place] : 38 degrees NORMAL SINUS RHYTHM NORMAL ECG Confirmed by DIAZ MEJÍA MD ([id number]) on 09/11/2023 7:14:45 AM NAME : STACIE RODRÍGUEZ PID : [id number] : 1970 Gender : Female Race : ORD : [id number] Procedure Date : Sep 10 2023 16:23:01 Edit Date : Sep 11 2023 07:14:48 Diagnosis: NORMAL SINUS RHYTHM NORMAL ECG Confirmed by DIAZ MEJÍA MD ([id number]) on 09/11/2023 7:14:45 AM Test Reason : SURGERY Location : 545 : [facility] Overread By : DIAZ MEJÍA MD Edited By : DIAZ MEJÍA MD Referred By : UTE MG Acquired by : Mima FENG Provider Result Type Result Stat us Generic External Data Provider ECG ORDERABLES F inal Result [facility] documented in this encounter Visit Diagnoses Not on filedocumented in this encounter Care Teams [employer] Demonstrator Relationship Specialty Start Date End Date Isaac Gardner MD PCP - General Family Medicine 03/06/23 02/17/24 Nadege Lawson NP [address] [place] [address] PCP - General Family Medicine 02/18/24 Marry Schroeder NP [address] [place] [address] Referring Physician Nurse Practitioner 03/06/23 Ruchi Zhong, [facility] [address] [place] [address] Account Executive [employer] [facility] 08/24/23 04/05/24 documented as of this encounter
--- OUTSIDE RECORDS SUMMARY | 2025-02-02 11:26 | XMS_ITS | Patient Health Record ---
Author Organization [facility] in [place] Address [address] [place] [address] Care Team Providers Care Car Retarder Operator Name Role Phone Marry Schroeder CNP Primary Care Provider Unavail able Allergies Allergen (clinical drug ingredient) Drug/Non Drug Allergy documented on EMR Reaction Allergy Type Onset Date Status tetracycline Tetracycline HCl rash Drug Allergy Active Reason For Referral No Information Medications Medication SIG (Take, Route, Frequency, Duration) Notes Start Date End Date Status Omeprazole 40 MG 1 capsule 30 minutes before morning meal Orally Once a day Active Wellbutrin Active CeleXA 40 MG 0.5 tablet Orally On ce a day Active Wegovy Active Albuterol Active Dicyclomine HCl 20 MG 1 tablet Orally Th ree times a day Not-Taking ZyrTEC Active Social History Tobacco Use: Social History Observation Description Date Details (start date - stop date) Never Smoker NA - NA Tobacco Use/Smoking Question Answer Notes Patient is a nonsmoker Plan Of Treatment No Information Insurance Providers Payer Name Payer Address Payer Phone Subscriber Number Group Number Insured Name Patient Relationship to Insured Coverage Start Date Coverage End Date BCBS OUT OF STATE [address] [place] [address] [id number] Bruce Rodríguezidi Self - patient is the insured [place]ICAID [place] 2ND INS [address] OFFICE [place], [place] [id number] Bruce Rodríguezidi Self - patient is the insured 1 Medical (General) History Medical History History ICD Code fibromyalgia varicose veins ulcers Surgical History Surgery Date(Month/Year) lumpectomy, right breast Hospitalization History Reason Date(Month/Year) bleeding ulcers
--- OUTSIDE RECORDS SUMMARY | 2025-02-02 11:26 | XMS_ITS | Encounter Summary ---
Author Organization [facility] tem Address [id number] [address] [place] [address] Care Team Providers Care Warehouse Helper Name Role Phone Unavailable Primary Care Provider Unavailabl e Encounter Details Date Type Department Care Team (Late st Contact Info) Description 08/19/2021 Telephone [facility] Division [facility] - Medical Oncology [address] [place] [address] [facility] [address] [place] [address] Social History Tobacco Use Types Packs/Day Years Used Date Smoking Tobacco: Never Assessed Childcare Answer Date Recorded Childcare Unknown 02/02/2019 Employment Answer Date Recorded Employment Unknown 02/02/2019 Comments Unknown Sex and Gender Information Value Date Recorded Sex Assigned at Not on file Legal Sex Female 4:40 PM EST Gender Identity Not on file Sexual Orientation Not on file documented as of this encounter Miscellaneous Notes * Telephone Encounter - Lilibeth Quintana - 08/19/2021 1:52 PM EST The listed phone # is not correct. Person that answered has had this # for a few months. Sent No Contact letter to pt and provider. sj documented in this encounter Plan of Treatment Not on file documented as of this encounter Visit Diagnoses Not on filedocumented in this encounter
--- OUTSIDE RECORDS SUMMARY | 2025-02-02 11:26 | XMS_ITS | Encounter Summary ---
Author Organization [facility] Address [address] [place] [address] Care Team Providers Care Traffic Rate Clerk Name Role Phone Isaac Gardner MD Primary Care Provider [phone] Marry Schroeder SALES REVIEW CLERK Unavailable [phone] Nadege Lawson NP Primary Care Provider Ruchi Zhong [facility] Unavailable [phone] Encounter Details Date Type Department Care Team (Late st Contact Info) Description 08/10/2023 Orders Only [facility] [address] [place] [address] Marry Schroeder, SALES REVIEW CLERK [address] [place] [address] Social History Tobacco Use Types Packs/Day Years [...] on filedocumented in this encounter Care Teams Traffic Rate Clerk Relationship Specialty Start Date End Date Isaac Gardner MD PCP - General Family Medicine 03/06/23 02/17/24 Nadege Lawson NP [address] [facility] [place] [address] PCP - General Family Medicine 02/18/24 Marry Schroeder NP [address] [place] [address] Referring Physician Nurse Practitioner 03/06/23 Ruchi Zhong, [facility] [address] [address] Assistant Grocery Store Manager Behavioral Health 08/24/23 04/05/24 documented as of this encounter
--- OUTSIDE RECORDS SUMMARY | 2025-02-02 11:26 | XMS_ITS | Encounter Summary ---
Author Organization [facility] Address [address] [place] [address] Care Team Providers Care Lance Crewmember/Mlrs Sergeant Name Role Phone Nadege Lawson ACETONE BUTTON PASTER Unavailable Nadege So NP Primary Care Provider Source Comments In the event this information is protected by the Federal Confidentiality of Alcohol and Drug AbusePatient Records regulations: The Federal rules restrict any use of the information to criminally investigate or prosecute any alcohol or drug abuse patient.[facility] Encounter Details Date Type Department Care Team (Late st Contact Info) Description 04/26/2024 Get Medical Advice Rheumatology [address] [place] [address] Beatris Plaza MD [address] [place] [address] Latest test results Social History Tobacco Use Types Packs/Day Years Used Date Smoking Tobacco: Never Smokeless Tobacco: Never Alcohol Use Standard Drinks/Week Comments Not Currently 0 (1 standard drink = 0.6 oz pur e alcohol) PHQ-2 Answer Date Recorded PHQ-2 score 3 01/11/2024 Area Deprivation Index Answer Date Korey rded National Score (1-100), lower number is lower ri sk 73 09/04/2023 State Score (1-10), lower number is lower risk 6 09/04/2023 Data from: https://www.neighborhoodatlas.medicine.[facility]/. Last address used for calculation [address] [place] [address] [address] 09/04/2023 Comments No Sex and Gender Information Value Date Recorded Sex Assigned at Not on file Legal Sex Female 11:53 AM EDT Gender Identity Not on file Sexual Orientation Not on file documented as of this encounter Miscellaneous Notes * Telephone Encounter - Beatris Plaza MD - 04/27/2024 3:24 PM EDT Please let her know that the antibody double-stranded DNA is still elevated at a moderate level butcrithidia is negative meaning double-stranded DNA is likely false positive. Other blood tests look good with no evidence of systemic lupus. Thank you documented in this encounter Plan of Treatment Not on file documented as of this encounter Visit Diagnoses Not on filedocumented in this encounter Care Teams Lance Crewmember/Mlrs Sergeant Relationship Specialty Start Date End Date Nadege Lawson NP [address] [place] [address] PCP - General Nurse Practitioner 01/06/24 Nadege Lawson NP [address] [place] [address] Referring Nurse Practitioner 10/22/23 documented as of this encounter
--- OUTSIDE RECORDS SUMMARY | 2025-02-02 11:26 | XMS_ITS | Encounter Summary ---
Author Organization [facility] Address [address] [place] [address] Care Team Providers Care Inflated Pad Buffer Name Role Phone Marry Schroeder MEDICAL COLLECTOR Unavailable [phone] Nadege Lawson NP Primary Care Provider Encounter Details Date Type Department Care Team (Late st Contact Info) Description 04/14/2024 Abstract [facility] [address] [facility] [address] [place] [address] Ruchi Zhong, [facility] [address] [place] [address] Social History Tobacco Use Types Packs/Day Years [...] on filedocumented in this encounter Care Teams Inflated Pad Buffer Relationship Specialty Start Date End Date Nadege Lawson NP [address] [place] [address] PCP - General Family Medicine 02/18/24 Marry Schroeder NP [address] [place] [address] Referring Physician Nurse Practitioner 03/06/23 documented as of this encounter
--- OUTSIDE RECORDS SUMMARY | 2025-02-02 11:26 | XMS_ITS | Encounter Summary ---
Author Organization [facility] Address [address] [place] [address] Care Team Providers Care Director Of Marketing Operations Name Role Phone Isaac Gardner MD Primary Care Provider [phone] Marry Schroeder SUPERVISOR PLASMA Unavailable [phone] Nadege Lawson SUPERVISOR PLASMA Primary Care Provider Ruchi Zhong [facility] Unavailable [phone] Encounter Details Date Type Department Care Team (Late st Contact Info) Description 08/02/2023 Abstract [facility] [address] [place] [address] Marry Schroeder, SUPERVISOR PLASMA [address] [place] [address] Social History Tobacco Use Types Packs/Day Years Used Date Smoking Tobacco: Never Assessed Comments Unknown Sex and Gender Information Value Date Recorded Sex Assigned at Not on file Legal Sex Female 6:35 PM EDT Gender Identity Not on file Sexual Orientation Not on file COVID-19 Exposure Response Date Recorded In the last 10 days, have yo u been in contact with someone who was confirmed or suspected to have Coronavirus/COVID-19? No / Unsure 07/08/2023 11:42 AM EST documented as of this encounter Plan of Treatment Not on file documented as of this encounter Visit Diagnoses Not on filedocumented in this encounter Care Teams Director Of Marketing Operations Relationship Specialty Start Date End Date Isaac Gardner MD PCP - General Family Medicine 03/06/23 02/17/24 Nadege Lawson NP [address] [facility] [place] [address] PCP - General Family Medicine 02/18/24 Marry Schroeder NP [address] [place] [address] Referring Physician Nurse Practitioner 03/06/23 Ruchi Zhong, [facility] [address] [facility] [address] [place] [address] Mortar Mixer Behavioral Health 08/24/23 04/05/24 documented as of this encounter
--- OUTSIDE RECORDS SUMMARY | 2025-02-02 11:26 | XMS_ITS | Encounter Summary ---
Author Organization [facility] Address [address] [place] [address] Care Team Providers Care Finance Associate Name Role Phone Isaac Gardner MD Primary Care Provider [phone] Marry Schroeder CHILD CARE TEAM LEAD Unavailable [phone] Nadege Lawson CHILD CARE TEAM LEAD Primary Care Provider Ruchi Zhong [facility] Unavailable [phone] Reason for Visit * Reason Comments Med Refill Encounter Details Date Type Department Care Team (Late st Contact Info) Description 09/25/2023 Refill [facility] [address] [place] [address] Marry Schroeder NP [address] [place] [address] Anxiety; Pain in other joint Social History Tobacco Use Types Packs/Day Years Used Date Smoking Tobacco: Never Comments Unknown Sex and Gender Information Value Date Recorded Sex Assigned at Not on file Legal Sex Female 6:35 PM EDT Gender Identity Not on file Sexual Orientation Not on file documented as of this encounter Miscellaneous Notes * Telephone Encounter - RAMY PHILIP - 09/28/2023 3:34 PM EST Pt needing a refill on her citalopram (CeleXA) 40 MG tablet. Pt states she only has 1 left. Please and thank you . * Telephone Encounter - Marry Schroeder NP - 09/28/2023 12:51 PM EST Needs an appt documented in this encounter Plan of Treatment Not on file documented as of this encounter Visit Diagnoses Diagnosis Anxiety Anxiety state, unspecified Pain in other joint documented in this encounter Care Teams Finance Associate Relationship Specialty Start Date End Date Isaac Gardner MD PCP - General Family Medicine 03/06/23 02/17/24 Nadege Lawson NP [facility] [place] [address] PCP - General Family Medicine 02/18/24 Marry Schroeder NP [address] [place] [address] Referring Physician Nurse Practitioner 03/06/23 Ruchi Zhong, [facility] [address] [facility] [address] [place] [address] Bench Grinder Behavioral Health 08/24/23 04/05/24 documented as of this encounter
--- OUTSIDE RECORDS SUMMARY | 2025-02-02 11:26 | XMS_ITS | Encounter Summary ---
Author Organization [facility] Address [address] [place] [address] Care Team Providers Care President & Founder Name Role Phone Nadege Lawson DIAPHRAGM BUILDER Unavailable Nadege So NP Primary Care Provider Source Comments In the event this information is protected by the Federal Confidentiality of Alcohol and Drug AbusePatient Records regulations: The Federal rules restrict any use of the information to criminally investigate or prosecute any alcohol or drug abuse patient.[facility] Encounter Details Date Type Department Care Team (Late st Contact Info) Description 10/20/2024 Patient [facility] -[address] [place] [address] Jeri Palacios RPh At your next appointment, choose [facility]. Social History Tobacco Use Types Packs/Day Years [...] is lower risk 6 09/04/2023 Data from: https://www.neighborhoodatlas.medicine.[facility].edu/. Last address used for calculation [address] 09/04/2023 Comments No Sex and Gender Information Value Date Recorded Sex Assigned at Not on file Legal Sex Female 11:53 AM EDT Gender Identity Not on file Sexual Orientation Not on file documented as of this encounter Plan of Treatment Not on file documented as of this encounter Visit Diagnoses Not on filedocumented in this encounter Care Teams President & Founder Relationship Specialty Start Date End Date Nadege Lawson NP [address] [place] [address] PCP - General Nurse Practitioner 01/06/24 Nadege Lawson NP [address] [place] [address] Referring Nurse Practitioner 10/22/23 documented as of this encounter
--- OUTSIDE RECORDS SUMMARY | 2025-02-02 11:26 | XMS_ITS | Encounter Summary ---
Author Organization [facility] Address [facility] [place] [address] Care Team Providers Care Strategic Manager Name Role Phone Nadege Lawson OPEN HEARTH DOOR LINER Unavailable Nadege So NP Primary Care Provider Source Comments In the event this information is protected by the Federal Confidentiality of Alcohol and Drug AbusePatient Records regulations: The Federal rules restrict any use of the information to criminally investigate or prosecute any alcohol or drug abuse patient.[facility] Encounter Details Date Type Department Care Team (Late st Contact Info) Description 05/26/2024 Patient Msg Pain Management [address] [place] [address] Provider, [facility] Appointment change Social History Tobacco Use Types Packs/Day Years [...] is lower risk 6 09/04/2023 Data from: https://www.neighborhoodatlas.medicine.[facility].edu/. Last address used for calculation [address] 09/04/2023 Comments No Sex and Gender Information Value Date Recorded Sex Assigned at Not on file Legal Sex Female 11:53 AM EDT Gender Identity Not on file Sexual Orientation Not on file documented as of this encounter Plan of Treatment Not on file documented as of this encounter Visit Diagnoses Not on filedocumented in this encounter Care Teams Strategic Manager Relationship Specialty Start Date End Date Nadege Lawson NP [address] [place] [address] PCP - General Nurse Practitioner 01/06/24 Nadege Lawson NP [address] [place] [address] Referring Nurse Practitioner 10/22/23 documented as of this encounter
--- OUTSIDE RECORDS SUMMARY | 2025-02-02 11:26 | XMS_ITS | Encounter Summary ---
Author Organization [facility] Address [address] [place] [address] Care Team Providers Care Credit Review Officer Name Role Phone Isaac Gardner MD Primary Care Provider Marry Schroeder ELECTRONICS DETAIL DRAFTSPERSON Unavailable [phone] Nadege Lawson ELECTRONICS DETAIL DRAFTSPERSON Primary Care Provider Ruchi Zhong [facility] Unavailable [phone] Encounter Details Date Type Department Care Team (Late st Contact Info) Description 08/26/2023 Orders Only [facility] [address] [place] [address] Marry Schroeder, ELECTRONICS DETAIL DRAFTSPERSON [address] [place] [address] Social History Tobacco Use Types Packs/Day Years [...] Name Priority Date/Time Associated Diagnosis Comments US VEIN MAPPING LOWER LT Routine 07/18/2023 1:14 PM EST US SHOULDER RIGHT Routine 07/18/2023 1:14 PM EST documented in this encounter Results * US VEIN MAPPING LOWER LT (07/18/2023 1:14 PM EST) Anatomical Region Laterality Modality Radiographic Gabby ging us Marry Schroeder ELECTRONICS DETAIL DRAFTSPERSON IMG XR PROCEDURES Final Result * US shoulder right (07/18/2023 1:14 PM EST) Anatomical Region Laterality Modality Upper Extremities, Shoulder Right Ultr asound us Marry Schroeder ELECTRONICS DETAIL DRAFTSPERSON IMG US PROCEDURES Final Result documented in this encounter Visit Diagnoses Not on filedocumented in this encounter Care Teams Credit Review Officer Relationship Specialty Start Date End Date Isaac Gardner MD PCP - General Family Medicine 03/06/23 02/17/24 Nadege Lawson NP [facility] [place] [address] PCP - General Family Medicine 02/18/24 Marry Schroeder NP [address] [place] [address] Referring Physician Nurse Practitioner 03/06/23 Ruchi Zhong, [facility] [address] [facility] [address] [place] [address] Senior Developer Behavioral Health 08/24/23 04/05/24 documented as of this encounter
--- OUTSIDE RECORDS SUMMARY | 2025-02-02 11:26 | XMS_ITS | Encounter Summary ---
Author Organization [facility] Address [address] [place] [address] Care Team Providers Care Nursing Staffing Coordinator Name Role Phone Nadege Lawson DISPLAY TRIMMER Unavailable Nadege So DISPLAY TRIMMER Primary Care Provider Source Comments In the event this information is protected by the Federal Confidentiality of Alcohol and Drug AbusePatient Records regulations: The Federal rules restrict any use of the information to criminally investigate or prosecute any alcohol or drug abuse patient.[facility] Encounter Details Date Type Department Care Team (Late st Contact Info) Description 10/10/2024 Patient Msg Rheumatology [address] [place] [address] Beatris Plaza MD [address] [place] [address] Appointment Request Social History Tobacco Use Types Packs/Day Years [...] is lower risk 6 09/04/2023 Data from: https://www.neighborhoodatlas.medicine.[facility]/. Last address used for calculation [address] [place] [address] [address] 09/04/2023 Comments No Sex and Gender Information Value Date Recorded Sex Assigned at Not on file Legal Sex Female 11:53 AM EDT Gender Identity Not on file Sexual Orientation Not on file documented as of this encounter Plan of Treatment Not on file documented as of this encounter Visit Diagnoses Not on filedocumented in this encounter Care Teams Nursing Staffing Coordinator Relationship Specialty Start Date End Date Nadege Lawson NP [address] [place] [address] PCP - General Nurse Practitioner 01/06/24 Nadege Lawson NP [address] [place] [address] Referring Nurse Practitioner 10/22/23 documented as of this encounter
--- OUTSIDE RECORDS SUMMARY | 2025-02-02 11:26 | XMS_ITS | Clinical Summary ---
Author Organization [facility] Address [address] [place] [address] Care Team Providers Care Lan/Wan Engineer Name Role Phone Alexandre Marry MINCING MACHINE OPERATOR Unavailable [phone] Nadege Lawson MINCING MACHINE OPERATOR Primary Care Provider Allergies Active Allergy Reactions Criticality Noted Date Comments Sulfamethoxazole-Trimethoprim 2022 Other 03/23/2024 IVP DYE Sulfa Antibiotics 07/30/2023 Tetracycline Rash Low 07/30/2023 Trimethoprim GI intolerance 08/22/2024 Medications buPROPion XL (Wellbutrin XL) 150 MG 24 hr tablet Take 150 mg by mouth in the morning. 3 Active traZODone (Desyrel) 50 MG tablet Take 50 mg by mouth at bedtime. 3 Active dicyclomine (Bentyl) 20 MG tablet Take 20 mg by mouth every 6 (six) hours if needed (for cramping). Active busPIRone (Buspar) 5 MG tablet Take 5 mg by mouth every 12 (twelve) hours 3 Active albuterol HFA 90 mcg/act inhaler Inhale 2 puffs every 4 (four) hours if needed for wheezing Active omeprazole (PriLOSEC) [address] capsule Take 40 mg by mouth in the morning. Take before meals. Do not crush or chew.. Active Multiple Vitamin (multivitamin) tablet Take 1 tablet by mouth in the morning. Active Ascorbic Acid (VITAMIN C GUMMIE PO) Take by mouth Activ e citalopram (CeleXA) 40 MG tabletIndication s:Depression, unspecified depression type,Anxiety Take 1 tablet (40 mg) by mouth in the morning. 90 tablet Active Albuterol-Budeso nide (Airsupra) 90-80 MCG/ACT aerosol Albuterol Active celecoxib (CeleBREX) 100 MG capsule TAKE 1 CAPSULE BY MOUTH 2 TIMES A DAY NEEDED Active cyanocobalamin (Vitamin B-12) 100 MCG tablet Take 100 mcg by mouth in the morning. Active Restasis 0.05 % ophthalmic emulsion Administer 1 drop into both eyes in the morning and 1 drop before bedtime. Active Active Problems Problem Noted Date Diagnosed Date Leg edema, right 11/30/2024 Localized swelling, mass and lump, right lower l imb 11/30/2024 Depression 09/28/2023 Anxiety 09/28/2023 Encounters Date Type Department Care Team Description 11/30/2024 10:45 AM EDT Consult [facility] [address] [facility] [address] [place] [address] Jez Lyle DO Leg edema, right (Primary Dx); Localized swelling, mass and lump, right lower limb 11/30/2024 Orders Only [facility] [address] [facility] [address] [place] [address] Josie Holder MA Localized swelling, mass and lump, right lower limb; Leg edema, right 11/30/2024 Travel 11/28/2024 Orders Only [facility] [address] [facility] [address] [place] [address] Jez Lyle DO 11/21/2024 Travel from Last 3 Months Immunizations Immunization Administration Dates Next Due Tdap 05/30/2015 Family History Medical History Relation Name Comments Diabetes Father Diabetes type II Father Hyperlipidemia Father Hypertension Father Hypertension Maternal Grandmother Diabetes Mother Hyperlipidemia Mother Hypertension Mother Bleeding ulcers Paternal Grandfather Breast cancer Sister Cancer Sister Relation Name Status Comments Father Maternal Grandmother Mother Paternal Grandfather Sister Social History Tobacco Use Types Packs/Day Years Used Date Smoking Tobacco: Never Smokeless Tobacco: Never Tobacco Cessation:Counseling Given: Not Answered Alcohol Use Standard Drinks/Week Comments Yes 2 (1 standard drink = 0.6 oz pur e alcohol) Comments Unknown Sex and Gender Information Value Date Recorded Sex Assigned at Not on file Legal Sex Female 6:35 PM EDT Gender Identity Not on file Sexual Orientation Not on file Last Filed Vital Signs Vital Sign Reading Time Taken Comments Blood Pressure 125/85 11/30/2024 10:54 AM EDT Pulse - - Temperature - - Respiratory Rate - - Oxygen Saturation - - Inhaled Oxygen Concentration - - Weight 83 kg (183 lb) 11/30/2024 10:54 AM EDT Height 154.9 cm (5' 1 ) 11/30/2024 10:54 AM EDT Body Mass Index 34.58 11/30/2024 10:54 AM EDT Plan of Treatment Health Maintenance Due Date Last Done Comments CT Colonography 1970 Colonoscopy 1970 Colorectal Cancer Screening 1970 FIT-DNA 1970 FIT 1970 FOBT 1970 Sigmoidoscopy 1970 Pap Smear 1991 Mammogram 2010 Influenza Vaccine (Season Ended) 2025 Cervical Cancer Screening 03/23/2029 HPV/Cotest 03/23/2029 03/23/2024 Insurance BCBS Care Teams Lan/Wan Engineer Relationship Specialty Start Date End Date Nadege Lawson NP [address] [facility] [place] [address] [place] [address] PCP - General Family Medicine 02/18/24 Marry Schroeder NP [address] [place] [address] Referring Physician Nurse Practitioner 03/06/23
--- OUTSIDE RECORDS SUMMARY | 2025-02-02 11:26 | XMS_ITS | Clinical Summary ---
Author Organization [facility] Address [address] [place], [place] [address] Care Team Providers Care Process Coordinator Name Role Phone Nadege Lawson POOL NURSE Unavailable Nadege So NP Primary Care Provider Allergies Active Allergy Reactions Criticality Noted Date Comments Sulfa (Sulfonamide Antibiotics) Rash Medium 07/18/2023 Tetracyclines Itching,Rash,Shortne ss of Breath Medium 12/10/2017 Medications buPROPion SR (WELLBUTRIN SR) 150 mg 12 hr tablet Wellbutrin Active citalopram (CELEXA) 40 mg tablet Take 40 mg by mouth. 3 Active omeprazole (PRILOSEC) 40 mg capsule Take 40 mg by mouth. 9 Active albuterol (PROVENTIL) 2.5 mg /3 mL (0.083 %) nebulizer solutionIndicati ons:Pre-op examination Use 3 mL via nebulizer four times a day as needed for wheezing/shortn ess of breath. Inhale by nebulizer over 5-15 minutes 4 Active cetirizine (ZYRTEC) 10 mg tablet Take by mouth every 12 hours. 0 Active Phentermine HCl 37.5 mg capsule TAKE 1 CAPSULE BY MOUTH EVERY DAY FOR 30 DAYS. administer 30 minutes before or 1-2 hours after breakfast 4 Active traZODone (DESYREL) 50 mg tablet TAKE 1 TABLET BY MOUTH EVERY DAY AT BEDTIME NEEDED FOR SLEEP FOR 30 DAYS Active celecoxib (CELEBREX) 100 mg capsule Take 1 capsule by mouth two times a day as needed. 60 capsule 2 4 Active cyclosporine (RESTASIS OPHTHALMIC) Use in eyes. Activ e montelukast sodium (SINGULAIR ORAL) Take by mouth once daily. For allergies Active Active Problems Problem Noted Date Diagnosed Date S/P lumpectomy, left breast 09/10/2023 Assessment & Plan (09/10/2023 4:33 PM EST): Assessment: due to benign mass Asthma 09/09/2023 09/09/2023 Assessment & Plan (09/10/2023 4:43 PM EST): Assessment: stable and asymptomatic, uses inhalers prn. Last inhaler use 2 weeks ago. No recent URI. Lungs clear to auscultation Cholelithiasis 09/09/2023 09/09/2023 Assessment & Plan (09/10/2023 4:44 PM EST): Assessment: presenting for surgical intervention Depression 09/09/2023 09/09/2023 Assessment & Plan (09/10/2023 4:44 PM EST): Assessment: stable with current medication regimen Gastroesophageal reflux disease 09/09/2023 09/09/2023 Assessment & Plan (09/10/2023 4:44 PM EST): Assessment: Managed and stable with current medication. Denies difficulty swallowing or any bleeding. BMI 31.0-31.9,adult 09/09/2023 09/09/2023 Assessment & Plan (09/10/2023 4:44 PM EST): Assessment: Body mass index is 31.66 kg/m . Resolved Problems Problem Noted Date Diagnosed Date Resolved Date MARKY (obstructive sleep apnea) 09/09/2023 09/10/2023 Social History Tobacco Use Types Packs/Day Years Used Date Smoking Tobacco: Never Smokeless Tobacco: Never Tobacco Cessation:Counseling Given: Not Answered Alcohol Use Standard Drinks/Week Comments Not Currently 0 (1 standard drink = 0.6 oz pur e alcohol) PHQ-2 Answer Date Recorded PHQ-2 score 3 01/11/2024 Area Deprivation Index Answer Date Korey rded National Score (1-100), lower number is lower ri sk 73 09/04/2023 State Score (1-10), lower number is lower risk 6 09/04/2023 Data from: https://www.neighborhoodatlas.medicine.[facility].edu/. Last address used for calculation [address] 09/04/2023 Comments No Sex and Gender Information Value Date Recorded Sex Assigned at Not on file Legal Sex Female 11:53 AM EDT Gender Identity Not on file Sexual Orientation Not on file Last Filed Vital Signs Vital Sign Reading Time Taken Comments Blood Pressure 135/82 04/19/2024 9:04 AM EDT Pulse 91 04/19/2024 9:04 AM EDT Temperature 37 C (98.6 F) 09/30/2023 12:53 PM EST Respiratory Rate 10 09/16/2023 12:4 5 PM EST Oxygen Saturation 99% 04/19/2024 9:04 AM EDT Inhaled Oxygen Concentration - - Weight 75.2 kg (165 lb 12.6 oz) 04/19/2024 9:04 AM EDT Height 154.9 cm (5' 1 ) 01/06/2024 9:35 AM EDT Body Mass Index 31.32 01/06/2024 9:35 AM EDT Plan of Treatment Health Maintenance Due Date Last Done Comments Annual PCP Team Chronic Disease Visit 1988 Anxiety Screening 1988 HIV Screening 1988 Hepatitis C Screening 1988 Hepatitis B Vaccine (1 of 3 - 19+ 3-dose series) 1989 Cervical Cancer Screening [address] Colonography 2015 Cologuard (FIT-DNA) 2015 Colonoscopy 2015 Colorectal Cancer Screening 2015 Fecal Occult Blood 2015 Lipid Screening 2015 Sigmoidoscopy 2015 Pneumococcal Vaccine: 50+ (1 of 1 - PCV) 2020 Shingrix Vaccine (1 of 2) 2020 Covid-19 Vaccine (3 - season) 04/24/202403/2021, 12/08/2020 Influenza Vaccine (Season Ended) 2025 DTaP,Tdap,Td Vaccine (2 - Td or Tdap) 05/30/202502/2015 Diabetes Screening 04/19/2027 04/19/2024, 0 01/06/2024, 09/10/2023 Procedures Procedure Name Priority Date/Time Associated Diagnosis Comments COMPREHENSIVE METABOLIC PANEL Routine 04/19/2024 9:43 AM EDT Ds DNA antibody positive from Last 3 Months or Most Recently Relevant to Health Maintenance Results * COMPREHENSIVE METABOLIC PANEL (04/19/2024 9:43 AM EDT) Pathologist [facility] Protein, Total 7.6 6.3 - 8.0 g/dL 04/19/2024 10:58 PM EDT [facility] Albumin 4.6 3.9 - 4.9 g/dL 04/19/2024 10:58 PM EDT [facility] Calcium, Total 9.9 8.5 - 10.2 mg/dL 04/19/2024 10:58 PM EDT [facility] Bilirubin, Total 0.2 0.2 - 1.3 mg/dL 04/19/2024 10:58 PM EDT [facility] Alkaline Phosphatase 64 34 - 123 U/L 04/19/2024 10:58 PM EDT [facility] AST 29 13 - 35 U/L 04/19/2024 10:58 PM EDT [facility] ALT 26 7 - 38 U/L 04/19/2024 10:58 PM EDT [facility] Glucose 98 74 - 99 mg/dL 04/19/2024 10:58 PM EDT [facility] Comment: The [place] Diabetes Association (ADA) provides guidance for cutoff [...] Standards of Medical Care in Diabetes 2016, [place] Diabetes Association. Diabetes Care. 2016.39(Suppl 1). BUN 10 7 - 21 mg/dL 04/19/2024 10:58 PM EDT [facility] Creatinine 0.72 0.58 - 0.96 mg/dL 04/19/2024 10:58 PM EDT [facility] Sodium 138 136 - 144 mmol/L 04/19/2024 10:58 PM EDT [facility] Potassium 4.6 3.7 - 5.1 mmol/L 04/19/2024 10:58 PM EDT [facility] Chloride 100 98 - 107 mmol/L 04/19/2024 10:58 PM EDT [facility] CO2 30 22 - 30 mmol/L 04/19/2024 10:58 PM EDT [facility] Anion Gap 8 8 - 15 mmol/L 04/19/2024 10:58 PM EDT [facility] Estimated Glomerular Filtration Rate 100 >=60 mL/min/1.7 3m 04/19/2024 10:58 PM EDT [facility] Comment:Estimated Glomerular Filtration Rate (eGFR) is calculated using the 2020 CKD-EPI creatinine equation. This equation utilizes serum creatinine, sex, and age as parameters. The creatinine assay has traceable calibration to isotope dilution- mass spectrometry. Refer to KDIGO guidelines for clinical interpretation. In patients with unstable renal function, e.g. those with acute kidney injury, the eGFR may not accurately reflect actual GFR. Blood BLOOD SPECIMEN / Unknown Venipuncture / Unknown 04/19/2024 9:43 AM EDT 04/19/2024 9:44 AM EDT us Beatris Plaza MD LABORATORY Final Result [facility] [address] [address], from Last 3 Months or Most Recently Relevant to Health Maintenance Insurance [place] [address] CARD PPO OOS Care Teams Process Coordinator Relationship Specialty Start Date End Date Nadege Lawson NP [address] [place] [address] PCP - General Nurse Practitioner 01/06/24 Nadege Lawson NP [address] [place] [id number] Referring Nurse Practitioner 10/22/23
--- OUTSIDE RECORDS SUMMARY | 2025-02-02 11:26 | XMS_ITS | Clinical Summary ---
Author Organization [facility] Address [id number] [address] [place] [address] Care Team Providers Care Principal Web Developer Name Role Phone Unavailable Primary Care Provider Unavailabl e Allergies Active Allergy Reactions Criticality Noted Date Comments Other 03/23/2024 IVP DYE Sulfa (Sulfonamide Antibiotics) Rash Low 02/23 Medications albuterol-budes onide 90-80 mcg/actuation HFA aerosol inhaler Albuterol Active buPROPion XL (WELLBUTRIN XL) 150 mg 24 hr tablet Take 1 tablet (150 mg total) by mouth every morning. Active celecoxib (CeleBREX) 100 mg capsule Take 1 capsule (100 mg total) by mouth daily as needed. 4 Active citalopram (CeleXA) 40 mg tablet Take 1 tablet (40 mg total) by mouth in the morning. 3 Active cycloSPORINE 0.05 % drops Twice daily 4 Active montelukast (SINGULAIR) 10 mg tablet Take 1 tablet (10 mg total) by mouth nightly. 4 Active omeprazole (PriLOSEC) 40 mg capsule Take 1 capsule (40 mg total) by mouth every morning before breakfast. 3 Active phentermine 37.5 MG capsule Take 1 capsule (37.5 mg total) by mouth every morning. 4 Active traZODone (DESYREL) 50 mg tablet Take 3 tablets (150 mg total) by mouth nightly. 3 Active cyanocobalamin (vitamin B-12) 100 MCG tablet Take 1 tablet (100 mcg total) by mouth in the morning. Active Active Problems Problem Noted Date Diagnosed Date Family history of breast cancer 03/23/2024 Overview (03/23/2024): Sister age 44 Family history of pancreatic cancer 03/23/2024 Overview (03/23/2024): Patient's father Fibromyalgia 03/23/2024 Obesity (BMI 30.0-34.9) 03/23/2024 Seasonal allergies 03/23/2024 Sleep disturbance 03/23/2024 Positive ALONDRA (antinuclear antibody) 03/23/2024 Hepatic hemangioma 03/23/2024 Hemangioma 03/23/2024 Acute upper gastrointestinal bleeding 03/23/2024 Antral ulcer 03/23/2024 Anxiety 09/28/2023 S/P lumpectomy, left breast 09/10/2023 Overview (03/23/2024): Last Assessment & Plan: Assessment: due to benign mass Asthma 09/09/2023 Overview (03/23/2024): Last Assessment & Plan: Assessment: stable and asymptomatic, uses inhalers prn. Last inhaler use 2 weeks ago. No recent URI. Lungs clear to auscultation Depression 09/09/2023 Overview (03/23/2024): Last Assessment & Plan: Assessment: stable with current medication regimen Gastroesophageal reflux disease 09/09/2023 Overview (03/23/2024): Last Assessment & Plan: Assessment: Managed and stable with current medication. Denies difficulty swallowing or any bleeding. Cholelithiasis 09/09/2023 Overview (03/23/2024): Last Assessment & Plan: Assessment: presenting for surgical intervention Family History Medical History Relation Name Comments Diabetes Father Pancreatic cancer Father Diabetes Mother Hypertension Mother BRCA 1/2 Sister Breast cancer Sister Relation Name Status Comments Father Mother Sister Social History Tobacco Use Types Packs/Day Years Used Date Smoking Tobacco: Never Smokeless Tobacco: Never Tobacco Cessation:Counseling Given: Not Answered Alcohol Use Standard Drinks/Week Comments Yes 0 (1 standard drink = 0.6 oz pur e alcohol) OCCASIONAL PHQ-2 Answer Date Recorded Total Score 4 03/23/2024 Childcare Answer Date Recorded Childcare Unknown 02/02/2019 Employment Answer Date Recorded Employment Unknown 02/02/2019 Hunger Screening Answer Date Recorded Within the past 12 months we worried whether our food would run out before we got money to buy more. Never True 03/23/2024 Within the past 12 months th e food we bought just didn't last and we didn't have money to get more. Never True 03/23/2024 Comments No Sex and Gender Information Value Date Recorded Sex Assigned at Not on file Legal Sex Female 4:40 PM EST Gender Identity Not on file Sexual Orientation Not on file Last Filed Vital Signs Vital Sign Reading Time Taken Comments Blood Pressure 120/78 03/23/2024 9:18 AM EDT Pulse - - Temperature - - Respiratory Rate - - Oxygen Saturation - - Inhaled Oxygen Concentration - - Weight 74.4 kg (164 lb) 03/23/2024 9:18 AM EDT Height 154.9 cm (5' 1 ) 03/23/2024 9:18 AM EDT Body Mass Index 30.99 03/23/2024 9:18 AM EDT Plan of Treatment Health Maintenance Due Date Last Done Comments Mammogram 2010 Colon Cancer Screening 3 Year Cologuard 2015 Zoster (Shingles) Vaccine (1 of 2) 2020 COVID-19 Vaccine (3 - season) 04/24/202403/2021, 12/08/2020 Adult BMI Follow Up Plan 03/23/2025 03/23/2024 Adult BMI Screening 03/23/2025 03/23/2024 Depression Screening 03/23/2025 03/23/2024 Tobacco Screening 03/23/2025 03/23/2024 Influenza Vaccine 04/24/2025 DTaP,Tdap and Td Vaccines (2 - Td or Tdap) 05/30/2025 05/30/2015 Pap Smear 03/23/2027 03/23/2024, 03/23/2024 Medical Devices Not on file Procedures Procedure Name Priority Date/Time Associated Diagnosis Comments HIGH RISK HPV W/MIKALA Routine 03/23/2024 6:35 AM EDT Cervical smear, as part of routine gynecological examination from Last 3 Months or Most Recently Relevant to Health Maintenance Results * High risk HPV w/mikala (03/23/2024 6:35 AM EDT) Hpv specimen type ThinPrep 03/24/2024 6:35 AM EDT [facility] Hpv 16 Negative Negative^N egative 03/25/2024 6:20 AM EDT [facility] Hpv 18 Negative Negative^N egative 03/25/2024 6:20 AM EDT [facility] Other high risk hpv Negative Negative^N egative 03/25/2024 6:20 AM EDT [facility] Comment: HPV types 31,33,35,39,45,52,56,58,59,66 and 68 DNA were undetectable. THINP 03/23/2024 6:35 AM EDT 03/23/2024 6:39 AM EDT us Marry Mercado MARINE OIL TERMINAL SUPERINTENDENT-PHOTOGRAPHER STILL LAB BLOOD ORDERABLES Fin al Result [facility] [address] [facility] [place] [address] [facility] [address] [facility] [place] [address] from Last 3 Months or Most Recently Relevant to Health Maintenance Insurance
--- OUTSIDE RECORDS SUMMARY | 2025-02-02 11:26 | XMS_ITS | Encounter Summary ---
Author Organization [facility] Address [address] [place], [place] [id number] Care Team Providers Care Superintendent Gas Distribution Name Role Phone Nadege Lawson CATALOG SPECIALIST Unavailable Nadege So NP Primary Care Provider Source Comments In the event this information is protected by the Federal Confidentiality of Alcohol and Drug AbusePatient Records regulations: The Federal rules restrict any use of the information to criminally investigate or prosecute any alcohol or drug abuse patient.[facility] Reason for Visit * Reason Comments Received Outside Medical Records Office Notes of 02/18/2024 from [facility]. Encounter Details Date Type Department Care Team (Late st Contact Info) Description 10/18/2024 Telephone Rheumatology [id number] Beatris Plaza MD [address] [place] [address] Received Outside Medical Records (Office Notes of 02/18/2024 from [facility].) Social History Tobacco Use Types Packs/Day Years [...] is lower risk 6 09/04/2023 Data from: https://www.neighborhoodatlas.medicine.[facility].edu/. Last address used for calculation [address] [place] [address] [address] 09/04/2023 Comments No Sex and Gender Information Value Date Recorded Sex Assigned at Not on file Legal Sex Female 11:53 AM EDT Gender Identity Not on file Sexual Orientation Not on file documented as of this encounter Miscellaneous Notes * Telephone Encounter - Pat Juarez - 10/18/2024 9:10 AM EST Received Office Notes of 02/18/2024 from [facility]. Scanned into chart for review. documented in this encounter Plan of Treatment Not on file documented as of this encounter Visit Diagnoses Not on filedocumented in this encounter Care Teams Superintendent Gas Distribution Relationship Specialty Start Date End Date Nadege Lawson NP [address] [place] [address] PCP - General Nurse Practitioner 01/06/24 Nadege Lawson NP [address] [place] [address] Referring Nurse Practitioner 10/22/23 documented as of this encounter
--- OUTSIDE RECORDS SUMMARY | 2025-02-02 11:26 | XMS_ITS | Encounter Summary ---
Author Organization [facility] Address [address] [place] [address] Care Team Providers Care Seaweed Harvester Name Role Phone Isaac Gardner MD Primary Care Provider Marry Schroeder NP Unavailable [phone] Nadege Lawson NP Primary Care Provider Ruchi Zhong [facility] Unavailable [phone] Encounter Details Date Type Department Care Team (Late st Contact Info) Description 01/11/2024 Orders Only [facility] [address] [place] [address] Marry Schroeder NP [address] [place] [address] Social History Tobacco Use Types Packs/Day Years [...] Procedure Name Priority Date/Time Associated Diagnosis Comments MISCELLANEOUS LAB TEST Routine 01/11/2024 9:22 AM EDT documented in this encounter Results * - Miscellaneous Test (01/11/2024 9:22 AM EDT) us Marry Schroeder NP LAB BLOOD ORDERABLES Final Resu lt documented in this encounter Visit Diagnoses Not on filedocumented in this encounter Care Teams Seaweed Harvester Relationship Specialty Start Date End Date Isaac Gardner MD PCP - General Family Medicine 03/06/23 02/17/24 Nadege Lawson NP [address] [facility] [address] PCP - General Family Medicine 02/18/24 Marry Schroeder NP [address] [place] [address] Referring Physician Nurse Practitioner 03/06/23 Ruchi hZong, [facility] [address] [place] [address] [facility] 08/24/23 04/05/24 documented as of this encounter
[2025-02-03 17:10] LABS: Giardia lamblia Ag, EIA Negative (Negative)
[2025-02-08 18:09] LABS: Ova + Parasite Exam Final report (.)
== END 2025-02-02 11:22 | disposition home or self-care (01) ==
LOC: LAB 11:21
PROVIDERS: PCP Nurse Practitioner Family; Visit Provider Nurse Practitioner Family
DX: R19.7 Diarrhea, unspecified (principal)
CPT/HCPCS: 87177; 87209; 87329